=== PATIENT | female | born 1950 | race Caucasian/White ===

== ENCOUNTER 2024-03-09 19:04 | Emergency (ER) | payer MEDICARE, SELFPAY ==
[2024-03-09 19:03] VITALS: BP 130/108; PULSE 95; RESP 16; O2SAT 96
--- NOTE | 2024-03-09 19:20 | ED.AMS ---
HPI - Altered Mental Status General Chief Complaint: Altered Mental Status Stated Complaint: confusion History of Present Illness HPI narrative: 73-year-old female presenting to the emergency department for evaluation. Son called EMS because patient was having some shortness of breath. Patient was brought in by EMS. Upon arrival to the emergency department patient states she is unsure why she is here patient has no complaints. Patient denies any pain or injury. Patient's son is not present during the exam Related Data Home Medications Medication Instructions Recorded Confirmed prednisone 10 mg tablet 5 mg PO DAILY Shortness Of Breath 09/20/20 11/11/23 Or Wheezing albuterol sulfate 90 mcg/actuation 90 mcg inhalation QID PRN 08/16/22 11/11/23 aerosol inhaler Shortness Of Breath famotidine 20 mg tablet 20 mg PO BID 08/16/22 11/11/23 fluticasone 250 mcg-salmeterol 50 See Rx Instructions .Route .COMPLEX 08/16/22 11/11/23 mcg/dose blistr powdr for inhalation (Advair Diskus) gabapentin 100 mg capsule See Rx Instructions .Route .COMPLEX 08/16/22 11/11/23 losartan 100 mg tablet 100 mg PO DAILY 08/16/22 11/11/23 mirtazapine 15 mg tablet 15 mg PO QHS 08/16/22 11/11/23 naproxen 500 mg tablet 500 mg PO Q12H 08/16/22 11/11/23 nitroglycerin 0.4 mg sublingual 0.4 mg sublingual BID PRN Chest 08/16/22 11/11/23 tablet Pain sumatriptan succinate 100 mg tablet 100 mg PO BID PRN Headache 08/16/22 11/11/23 aspirin 81 mg tablet,delayed 81 mg PO DAILY 11/25/22 11/11/23 release nortriptyline 10 mg capsule 10 mg HS 08/23/23 11/11/23 tizanidine 4 mg tablet 4 mg QID PRN Back Pain 08/23/23 11/11/23 trazodone 100 mg tablet 100 mg HS 08/23/23 11/11/23 Allergies Allergy/AdvReac Type Severity Reaction Status Date / Time Penicillins Allergy Severe Swelling Verified 11/10/23 13:56 of Lip/Tongue/Throat Sulfa (Sulfonamide Allergy Unknown Unknown Verified 11/10/23 13:56 Antibiotics) Review of Systems Review of Systems: All systems reviewed & are unremarkable except as noted in HPI and below PMFSH Past Medical History Medical History (Updated 11/29/23 @ 00:00 by Yanelis Shaver) Anxiety Arthritis Bladder cancer Bronchitis Cerebral atherosclerosis Cerebrovascular accident Per patient reports, she had 2 or 3 strokes, the last being in April 2019 although not well documented. Chronic obstructive pulmonary disease Coronary artery disease COVID-19 Depression Fibromyalgia Questionable history of fibromyalgia Gastric ulcer Gastroesophageal reflux disease GI bleed Hyperlipidemia Hyperpituitarism Hypertension Left foot drop Lupus Patient states she has lupus, not well documented. Malingering Meningitis Myocardial infarction Osteoporosis Peripheral neuropathy Renal cancer Systemic lupus erythematosus Surgical History Surgical History History of bilateral breast reduction surgery History of cardiac catheterization History of cardiac defibrillator placement Reportedly for ventricular tachycardia. History of cholecystectomy History of heart artery stent History of hysterectomy History of resection of small bowel (06/20/22) Small-bowel resection with repair of incarcerated right inguinal hernia. History of tonsillectomy Family History Family History Father Hypertension Mother Hypertension Family history of cardiovascular disease Social History Social History Social History: Surrogate medical decision maker: Maxi Carrasquillo, son. Code status: Do not resuscitate. Smoking packs per day: 1 Smoking cigarettes per day: 20.0 Years smoked: 56 Smoking pack-years: 56.00 Smoking status: Never smoker Tobacco type: cigarettes Second hand tobacco smoke exposure: No Alcohol intake: never Substance use: never Substance use type: does not use Do You Feel Safe in your Home?: Yes Lack of Transportation: No Lack of Food: Never True Current Housing: I Have Housing Concerned About Future Housing: No Difficulty Paying Gas/Electric Bills: No Difficulty Paying for Meds: No Currently Unemployed: No Education: High School Diploma/GED Difficulty w/ Childcare or Family Care: No Additional living arrangements comments: with three children. Lives in [place]. 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 Spiritual care concerns: No Agree to blood products: Yes Exam Narrative: APPEARANCE: Well appearing, no pain, no distress, well-nourished. HEAD: normocephalic, atraumatic. EYES: PERRLA/EOMI, conjunctivae clear. NOSE: Normal no drainage EARS:TMS clear with good light reflex. THROAT: Pharynx clear, no exudate. NECK: Supple. No adenopathy, no masses. RESPIRATORY: Airway patent, respirations nonlabored. Clear to auscultation bilaterally, no rales, rhonchi, wheezing. CARDIOVASCULAR: Regular rate and rhythm without murmurs rubs or gallops. ABDOMINAL: Soft, nontender, nondistended, normal bowel sounds MUSCULOSKELETAL: Moves all extremities. Strength/ROM intact, No edema, No calf tenderness. NEURO: Alert. Cranial nerves II through XII intact. Good gait. Good coordination SKIN: Warm, dry. Normal Color PSYCHIATRIC: Normal affect/mood. Course Vital Signs Vital signs: Vital Signs Pulse Rate 95 03/09/24 19:03 Respiratory Rate 16 03/09/24 19:03 Blood Pressure 130/108 H 03/09/24 19:03 Pulse Oximetry 96 03/09/24 19:03 Oxygen Delivery Room Air 03/09/24 19:03 Pulse Rate 95 03/09/24 19:03 Respiratory Rate 16 03/09/24 19:03 Blood Pressure 130/108 H 03/09/24 19:03 Pulse Oximetry 96 03/09/24 19:03 Oxygen Delivery Room Air 03/09/24 19:11 MDM - Altered Mental Status MDM Narrative Medical decision making narrative: Patient states she has no complaints, patient is alert oriented, patient declined any workup at this time and is requesting to be discharged home. Lab Data Labs: Lab Results 03/09/24 Range/Units 19:25 Influenza A (RT-PCR) Negative (Negative) Influenza B (RT-PCR) Negative (Negative) RSV (RT-PCR) Negative (Negative) SARS-CoV-2 RNA (RT-PCR) Negative (Negative) Discharge Plan Discharge Patient Disposition: Left Against Medical Advice Condition: Stable Prescriptions: No Action fluticasone propion-salmeterol [Advair Diskus] 250-50 mcg/dose blister with device See Rx Instructions .ROUTE .COMPLEX Rx Instructions: 250-50 MCG/DOSE BLISTER WITH DEVICE sumatriptan succinate 100 mg tablet 100 mg PO BID PRN (Reason: Headache) famotidine 20 mg tablet 20 mg PO BID nitroglycerin 0.4 mg tablet, sublingual 0.4 mg sublingual BID PRN (Reason: Chest Pain) mirtazapine 15 mg tablet 15 mg PO QHS gabapentin 100 mg capsule See Rx Instructions .ROUTE .COMPLEX Rx Instructions: TAKE ONE CAPSULE EVERY MORNING AND TAKE TWO CAPSULES EVERY NIGHT AT BEDTIME albuterol sulfate 90 mcg/actuation HFA aerosol inhaler 90 mcg inhalation QID PRN (Reason: Shortness Of Breath) losartan 100 mg tablet 100 mg PO DAILY naproxen 500 mg tablet 500 mg PO Q12H hydrocodone-acetaminophen 5-325 mg tablet 1 tablet PO Q6H PRN (Reason: pain) Qty: 20 0RF cyclobenzaprine 10 mg tablet 10 mg PO TID PRN (Reason: muscle spasm) Qty: 14 0RF prednisone 10 mg tablet 5 mg PO DAILY Rx Instructions: 1/2 Tab every day aspirin 81 mg Tablet,Delayed Release (Dr/Ec) 81 mg PO DAILY pantoprazole [Protonix] 40 mg tablet,delayed release (DR/EC) 40 mg PO QAM Qty: 30 0RF tizanidine 4 mg tablet 4 mg QID PRN (Reason: Back Pain) nortriptyline 10 mg capsule 10 mg HS trazodone 100 mg tablet 100 mg HS Follow-up/Referrals: Josse,VALENTIN Roberts [Primary Care Provider] -
--- NOTE | 2024-03-09 19:33 | PC.NURSE ---
This RN spoke with pt son Maxi who states that his brother and POPatrick Oates is coming to [place] to voice concerns. Pt currently uncooperative upset that she is at the hospital. MD Ayala updated.
--- NOTE | 2024-03-09 19:36 | PC.NURSE ---
Patient AOx3 and adamant about leaving the hospital. Patient refuses chest x-ray and urinalysis. Patient states she wants her son to get here to take her home. Patient asked to stay in bed and hang out until her son gets here. Patient taking off the monitor and stating she does not have to sit in bed. Margaux PRITCHARD spoke with son of patient on the phone who stated he was on the way here. Patient made aware. Patient continues to say she does not want to be on the monitor and does not want to take a bed from someone who needs it. EDP and Earl made aware.
[2024-03-09 20:15] LABS: Influenza A QL RT-PCR Negative (Negative); Influenza B QL RT-PCR Negative (Negative); RSV RNA, RT-PCR Negative (Negative); SARS-CoV-2 RNA PCR Negative (Negative)
--- NOTE | 2024-03-09 20:20 | PC.NURSE ---
Patient came to the nurses charge desk stating she wanted to sign out AMA. EDP Dr. Ayala conversed with patient and stated she can sign out. Patient signs AMA form and walked to the waiting room. Son of patient -Maxi- marsha who states his brother -Иван- is on his way to the hospital. He states he wants her to be evaluated when they arrive. Son is advised that she is able to answer all questions for this RN and we cannot go against her wishes and treat her without her consent. Son states his brother is on the way to the hospital and they will discuss it then.
== END 2024-03-09 21:22 | disposition left against medical advice (07) ==
PROVIDERS: Emergency Provider Emergency Medicine; PCP Physician Assistant
DX: R41.82 Altered mental status, unspecified (principal); F41.9 Anxiety disorder, unspecified; M19.90 Unspecified osteoarthritis, unspecified site; Z86.73 Personal history of transient ischemic attack (TIA), and cerebral infarction without residual deficits; J44.9 Chronic obstructive pulmonary disease, unspecified; I25.10 Atherosclerotic heart disease of native coronary artery without angina pectoris; K21.9 Gastro-esophageal reflux disease without esophagitis; E78.5 Hyperlipidemia, unspecified; I10 Essential (primary) hypertension; M21.372 Foot drop, left foot; I25.2 Old myocardial infarction; Z20.822 Contact with and (suspected) exposure to COVID-19
CPT/HCPCS: 87637; 99283

== ENCOUNTER 2025-02-13 16:38 | Observation (INO) | payer MEDICARE, MEDICAID, SELFPAY ==
--- OUTSIDE RECORDS SUMMARY | 2025-02-12 19:45 | XMS_ITS | Encounter Summary ---
Author Organization [facility] Address [address] [place] [address] Care Team Providers [employer] [place] Agent Name Role Phone Karan Snyder MD Unavailable [phone] Wesley Loaiza Primary Care Provider + Lilia Gomes MD Unavailable Mando Acuña MD Unavailable [phone] Larry Gregory MD Unavailable [phone] Nixon Casey MD Unavailable Renan Espino MD Unavailable Reason for Visit * Reason Comments Chest Pain Encounter Details Date Type Department Care Team (Late st Contact Info) Description 02/12/2025 7:45 PM CDT - 02/12/2025 11:18 PM CDT Emergency [facility] Emergency Department [address] [place] [address] Seth Ann III, MD [address] [place] [address] Fall, initial encounter (Primary Dx); Acute pain of left shoulder Discharge Disposition: Discharge to home or self care Social History Tobacco Use Types Packs/Day Years Used Date Smoking Tobacco: Former Cigarettes 1 55 1 960 - 2015 Smokeless Tobacco: Never Comments:quit 3 1/2 years ag o Alcohol Use Standard Drinks/Week Comments Not Currently 0 (1 standard drink = 0.6 oz pur e alcohol) Social Connection and Isolation Panel Answer Date Recorded In a typical week, how many times do you talk on the phone with family, friends, or neighbors? More than three times a week 02/04/2023 Frequency of Social Gatherin gs with Friends and Family Not on file 02/04/2023 How often do you attend chur ch or hinduism services? More than 4 times per year 02/04/2023 Do you belong to any clubs o r organizations such as rastafarian groups, unions, fraternal or athletic groups, or school groups? No 02/04/2023 How often do you attend meet ings of the clubs or organizations you belong to? Never 02/04/2023 Are you , , di vorced, , never , or living with a partner? 02/04/2023 Overall Financial Resource Strain (CARDIA) Answe r Date Recorded How hard is it for you to pa y for the very basics like food, housing, medical care, and heating? Not very hard 02/04/2023 PHQ-2 Answer Date Recorded PHQ-2 Score 0 01/23/2019 Hunger Vital Sign Answer Date Recorded Within the past 12 months, y ou worried that your food would run out before you got the money to buy more. Never true 02/05/20 23 Within the past 12 months, t he food you bought just didn't last and you didn't have money to get more. Never true 02/04/2023 PRAPARE - Transportation Answer Date Re corded In the past 12 months, has l ack of transportation kept you from medical appointments or from getting medications? No 09/2022 In the past 12 months, has l ack of transportation kept you from meetings, work, or from getting things needed for daily living? No 02/04/2023 Housing Stability Vital Sign Answer Ayo e Recorded In the last 12 months, was t here a time when you were not able to pay the mortgage or rent on time? No 02/04/2023 In the last 12 months, how many places have you lived? 1 02/04/2023 In the last 12 months, was t here a time when you did not have a steady place to sleep or slept in a penitentiary (including now)? No 02/04/2023 Personal Safety Answer Date Recorded Have you ever been in or are you currently in a harmful physical or emotional relationship or is someone making you feel afraid or unsafe? 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 Gender Identity Not on file Sexual Orientation Not on file documented as of this encounter Last Filed Vital Signs Vital Sign Reading Time Taken Comments Blood Pressure 136/63 02/12/2025 10:00 PM CDT Pulse 72 02/12/2025 10:00 PM CDT Temperature 36.9 C (98.4 F) 02/12/2025 8:05 PM CDT Respiratory Rate 22 02/12/2025 10:54 PM CDT Oxygen Saturation 98% 02/12/2025 10:54 PM CDT Inhaled Oxygen Concentration - - Weight 47.6 kg (105 lb) 02/12/2025 8:05 PM CDT Height - - Body Mass Index 18.02 02/28/2024 2:18 PM CDT documented in this encounter Discharge Instructions * Discharge Instructions* Seth Ann III, MD - 02/12/2025 9:48 PM CDT He would not have any broken bones. Rest her shoulder for the next couple days. Take Tylenol and ibuprofen for pain you may wear a sling as needed. Call your primary care doctor on Friday to schedulefollow up appointment for re-evaluation * Attachments The following attachments cannot be sent through Care Everywhere. * Exercises for Shoulder Flexion and Extension (AfterCare(R) Instructions(ER/ED)) (Gambian) documented in this encounter Medications at Time of Discharge amLODIPine (NORVASC) 5 mg tablet Take 1 tablet (5 mg total) by mouth every morning 01/03/2023 aspirin 81 mg enteric coated tablet Take 1 tablet (81 mg total) by mouth daily budesonide-formotero L (SYMBICORT) 160-4.5 mcg/actuation inhaler Inhale 2 puffs 2 (two) times a day 01/08/2023 clopidogreL (PLAVIX) 75 mg tablet Take 1 tablet (75 mg total) by mouth every morning 11/04/2023 cyclobenzaprine (FLEXERIL) 10 mg tablet TAKE 1/2 TO 1 TABLET BY MOUTH TWICE DAILY 11/20/[address] (CYMBALTA) 60 mg capsule Take 1 capsule (60 mg total) by mouth every morning Eliquis 2.5 mg tablet 11/26/2023 gabapentin (NEURONTIN) 300 mg capsule Take 1 capsule (300 mg total) by mouth 3 (three) times a day 01/03/2023 hydrOXYzine (ATARAX) 10 mg tablet TAKE 1 TO 2 TABLETS BY MOUTH 3 TIMES DAILY NEEDED 09/02/2023 levoFLOXacin (LEVAQUIN) 500 mg tablet Take 1 tablet (500 mg total) by mouth daily 7 tablet 02/28/2024 losartan (COZAAR) 100 mg tablet Take 1 tablet (100 mg total) by mouth every morning nitroglycerin (NITROSTAT) 0.[address] 1 tablet (0.4 mg total) under the tongue every 5 (five) minutes as needed for chest pain 12/04/2022 nortriptyline (PAMELOR) 10 mg capsule TAKE 2 CAPSULES BY MOUTH EVERY DAY AT BEDTIME 10/24/2023 Nurtec ODT tablet,disintegratin g TAKE 1 TABLET BY MOUTH DAILY NEEDED FOR 8 DAYS ondansetron ODT (ZOFRAN-ODT) 4 mg disintegrating tablet Dissolve 1 tablet oral every 4 hours as needed for nausea or vomiting. 15 tablet 10/17/2021 oxyCODONE-acetaminop hen (PERCOCET) 7.5-325 mg per tablet Take by mouth 2 (two) times a day as needed 09/04/[address] (PROTONIX) 40 mg EC tabletIndications:Mu cositis Prophylaxis,Treatmen t of Non-Bleeding Gastric Disorder Take 1 tablet (40 mg total) by mouth daily 30 tablet 11/13/2021 tiZANidine (ZANAFLEX) 4 mg tablet Take 1 tablet (4 mg total) by mouth 3 (three) times a day 01/03/2023 documented as of this encounter Discharge Disposition Disposition Code Departure Means Destination Comment s Discharge to home or self care documented in this encounter ED Notes * Seth Ann III, MD - 02/12/2025 9:43 PM CDT HPI Chief Complaint Patient presents with Chest Pain 74-year-old female presents with shoulder pain after mechanical ground level fall. States she was walking tripped and fell landed on her left shoulder hit her head. Denies losing consciousness. Currently complaining of pain around her left shoulder. Denies any vision changes, numbness, tingling. Denies any chest pain. Patient History: Past Medical History: Diagnosis Date A-fib (HCC) Cancer (HCC) Cerebrovascular accident (CVA) (HCC) Stroke Coronary artery disease Depression HX OTHER MEDICAL TIA - multiple HX OTHER MEDICAL Lupus HX OTHER MEDICAL 2015 bladder cancer, Zahira Diaz.; Comments: PETRA 10/16/2015 - Hypertension Lupus ND (myocardial infarction) (HCC) Migraines Review of Systems Review of Systems Physical Exam ED Triage Vitals [02/12/252004] Temp Pulse Resp BP SpO2 36.9 ??C (98.4 ??F) 82 20 128/47 96 % Temp src Heart Rate Source Patient Position BP Location FiO2 (%) Oral -- -- -- -- Height Height Method Weight Weight Method -- -- 47.6 kg (105 lb) Stated Physical Exam Vitals and nursing note reviewed. Constitutional: General: She is not in acute distress. Appearance: She is well-developed. HENT: Head: Normocephalic and atraumatic. Eyes: Conjunctiva/sclera: Conjunctivae normal. Cardiovascular: Rate and Rhythm: Normal rate and regular rhythm. Heart sounds: No murmur heard. Pulmonary: Effort: Pulmonary effort is normal. No respiratory distress. Breath sounds: Normal breath sounds. Abdominal: Palpations: Abdomen is soft. Tenderness: There is no abdominal tenderness. Musculoskeletal: General: No swelling. Cervical back: Neck supple. Comments: Pain with active greater than passive flexion and ab duction of the left shoulder. Tenderness to palpation over the long head of the biceps and deltoid muscle. No bony tenderness. Skin: General: Skin is warm and dry. Capillary Refill: Capillary refill takes less than 2 seconds. Neurological: Mental Status: She is alert. Psychiatric: Mood and Affect: Mood normal. MDM [age] year female presents with a mechanical ground level fall hitting her head and shoulder. Differential diagnosis includes intracranial hemorrhage, humerus fracture, rotator cuff tear, biceps tendinitis, labral tear. Patient was neurovascularly intact so less likely intracranial hemorrhage but given her age will order a head CT. Will get plain films of the shoulder and chest given location of her pain to rule out fracture. Patient was provided opioid analgesia and demanded more directly afterwards. Per chart review patient does have some history of pain med seeking behavior and at this time I have a low concern for severe acute injury so will add a dose of Toradol. Disposition pending results of imaging ???Portions of the record may have been created with voice recognition software. Occasional wrong-word or ???[id number]??? substitutions may have occurred due to the inherent limitations of voice recognition software. Read the chart carefully and recognize, using context, where substitutions haveoccurred.?? NIH Score Medical Decision Making Amount and/or Complexity of Data Reviewed Radiology: ordered and independent interpretation performed. ECG/medicine tests: ordered. Risk OTC drugs. Prescription drug management. ED Course as of 02/13/25 0940 Time: 02/12 2149 Comment: On my independent review of the shoulder x-ray I see no large fracture or dislocation By: Seth Ann III, MD Time: 02/12 2150 Comment: My independent review the chest x-ray that has no large consolidation or pulmonary edema By: Seth Ann III, MD Time: 02/12 2150 Comment: On my independent review of the head CT I see no large intracranial hemorrhage By: Seth Ann III, MD Time: 02/12 2150 Comment: On my review of the labs she has a mild stable anemia otherwise unremarkable. Troponin appears stable from baseline and patient is not having active chest pain By: Seth Ann III, MD Final diagnoses: Fall, initial encounter Acute pain of left shoulder Seth Ann III, MD 02/13/25939 * Reginald Gordillo, MACHO - 02/12/2025 8:02 PM CDT Left sided chest pain that goes into her left arm and neck since yesterday * Cyndee Martínez RN - 02/12/2025 7:45 PM CDT Bed: ED29 Expected date: Expected time: Means of arrival: Comments: [facility] 16- CP VSS Cyndee Martínez, MACHO 02/12/251944 documented in this encounter Plan of Treatment Not on file documented as of this encounter Procedures Procedure Name Priority Date/Time Associated Diagnosis Comments CT HEAD WO CONTRAST ED 02/12/2025 9 :32 PM CDT XR SHOULDER LEFT 2 OR MORE VIEWS ED 02/12/2025 9:07 PM CDT XR CHEST 1 VIEW ED 02/12/2025 8:02 PM CDT TROPONIN T HIGH-SENSITIVITY SERIES (BASELINE, 2HR, 4HR, 6HR) STAT 02/12/2025 7:53 PM CDT EGFR STAT 02/12/2025 7:53 PM CDT DIFFERENTIAL AUTO STAT 02/12/2025 7:5 3 PM CDT CBC WITH AUTO DIFFERENTIAL STAT 02/12/2025 7:53 PM CDT COMPREHENSIVE METABOLIC PANEL STAT 02/12/2025 7:53 PM CDT ECG 12-LEAD STAT 02/12/2025 7:34 PM CDT documented in this encounter Results * CT Head WO Contrast (02/12/2025 9:32 PM CDT) Anatomical Region Laterality Modality Head and Neck N/A Computed Tomogra phy 02/12/2025 9:30 PM CDT Impressions 02/13/2025 12:42 PM CDT 1. No acute intracranial abnormality. 2. Mild atrophy. 3. Moderate microvascular white matter change. For the purposes of corporate quality assurance manager, this study was initially interpreted by teleradiology. There is no significant discrepancy. Electronically signed by: Gallito Funk M.D. Narrative 02/13/2025 12:[address] HEAD WO CONTRAST 02/12/2025 8:55 PM CLINICAL INDICATION: Head trauma, minor (Age >= 65y). COMPARISON: CT head dated 11/29/2023. TECHNIQUE: CT scan of the head was performed without contrast. Coronal and sagittal reformatted images were generated. FINDINGS: The ventricles and cortical sulci are mildly dilated, but stable in size and configuration. There is no acute intracranial hemorrhage, mass/mass effect or midline shift. Moderate subcortical and periventricular hypodensities likely represent microvascular ischemic white matter change. A right basal ganglia round hypodensity is unchanged and could represent a perivascular space or chronic lacunar infarct. The basal cisterns are patent. The sella and suprasellar structures are normal. There are no acute findings in the posterior fossa. The visualized paranasal sinuses and mastoid air cells are clear. The orbits are normal. Procedure Note Gallito Funk MD - 02/13/2025 CT HEAD WO CONTRAST 02/12/2025 8:55 PM CLINICAL INDICATION: Head trauma, minor (Age >= 65y). COMPARISON: CT head dated 11/29/2023. TECHNIQUE: CT scan of the head was performed without contrast. Coronal and sagittal reformatted images were generated. FINDINGS: The ventricles and cortical sulci are mildly dilated, but stable in size and configuration. There is no acute intracranial hemorrhage, mass/mass effect or midline shift. Moderate subcortical and periventricular hypodensities likely represent microvascular ischemic white matter change. A right basal ganglia round hypodensity is unchanged and could represent a perivascular space or chronic lacunar infarct. The basal cisterns are patent. The sella and suprasellar structures are normal. There are no acute findings in the posterior fossa. The visualized paranasal sinuses and mastoid air cells are clear. The orbits are normal. IMPRESSION: 1. No acute intracranial abnormality. 2. Mild atrophy. 3. Moderate microvascular white matter change. For the purposes of corporate quality assurance manager, this study was initially interpreted by teleradiology. There is no significant discrepancy. Electronically signed by: Gallito Funk M.D. Seth Ann III, MD IM CT PROCEDUR ES Final Result * XR Shoulder Left 2 or More Views (02/12/2025 9:07 PM CDT) Anatomical Region Laterality Modality Upper Extremities, Shoulder Left Comp uted Radiography 02/13/2025 6:05 PM CDT Impressions 02/13/2025 6:05 PM CDT No fracture or dislocation. Electronically signed by: Aaliyah Remy M.D. Narrative 02/13/2025 6:05 PM CDT EXAMINATION: XR SHOULDER LEFT 2 OR MORE VIEWS HISTORY: The patient is a 74-year-old female who presents with a fall. TECHNIQUE: 4 views. FINDINGS: No fracture or dislocation is seen. The glenohumeral and acromioclavicular joints are normal. Procedure Note Aaliyah Remy MD - 02/13/2025 EXAMINATION: XR SHOULDER LEFT 2 OR MORE VIEWS HISTORY: The patient is a 74-year-old female who presents with a fall. TECHNIQUE: 4 views. FINDINGS: No fracture or dislocation is seen. The glenohumeral and acromioclavicular joints are normal. IMPRESSION: No fracture or dislocation. Electronically signed by: Aaliyah Remy M.D. us Seth Ann III, MD IMG XR PROCEDUR ES Final Result * XR Chest 1 Vw Portable (If patient hemodynamically UNstable or UNable to ambulate) (02/12/2025 8:02PM CDT) Anatomical Region Laterality Modality Body, Chest N/A Computed Radiogr aphy 02/13/2025 12:1 8 PM CDT Impressions 02/13/2025 12:18 PM CDT Mild vascular congestion. Electronically signed by: Aaliyah Remy M.D. Narrative 02/13/2025 12:18 PM CDT EXAMINATION: XR CHEST 1 VIEW HISTORY: The patient is a 74-year-old female who presents with chest pain. Comparison made with the previous study dated 02/28/2024. TECHNIQUE: AP portable view of the chest. FINDINGS: Borderline cardiomegaly with aortic atherosclerosis. Mild degree of vascular congestion. No focal consolidation. Procedure Note Aaliyah Remy MD - 02/13/2025 EXAMINATION: XR CHEST 1 VIEW HISTORY: The patient is a 74-year-old female who presents with chest pain. Comparison made with the previous study dated 02/28/2024. TECHNIQUE: AP portable view of the chest. FINDINGS: Borderline cardiomegaly with aortic atherosclerosis. Mild degree of vascular congestion. No focal consolidation. IMPRESSION: Mild vascular congestion. Electronically signed by: Aaliyah Remy M.D. Seth Ann III, IMG XR PROCEDUR ES Final Result * (ABNORMAL) eGFR (02/12/2025 7:53 PM CDT) Pathologist [facility] eGFR 42(L) >=60 mL/min/1. 73 m2 Comment: Interpretive Data Reference Interval Normal >/= 90 mL/min/1.73m2 Mildly decreased* 60 - 89 mL/min/1.73m2 Mildly to moderately decreased 45 - 59 mL/min/1.73m2 Moderately to severely decreased 30 - 44 mL/min/1.73m2 Severely decreased 15 - 29 mL/min/1.73m2 Kidney Failure < 15 mL/min/1.73m2 *Relative to young adult level Estimated glomerular filtration rate is determined by the 2020 CKD-EPI equation recommended by the National Kidney Foundation (A Unifying Approach to GFR Estimation: Recommendations of the NKF-ASK Task Force on Reassessing the Inclusion of Race in Diagnosing Kidney Disease, JASN 2020). The CKD-EPI equation should not be used for patients with unstable renal function and has not been validated in children and those over 70. Current interpretive data was last reviewed 2021. Blood 02/12/2025 7:53 PM CDT 02/12/2025 7:56 PM CDT Arina Mendez MD LAB BLOOD ORDERABLES Final Res ult [facility] [address] Department [place] [address] * (ABNORMAL) Differential, auto (02/12/2025 7:53 PM CDT) Pathologist [facility] Neutrophil abs 5.37 1.50 - 6.50 K/cumm Imm gran abs 0.02 0.00 - 0.10 K/cumm [facility] Lymphocyte abs 0.93 0.80 - 3.30 K/cumm [facility] Monocyte abs 0.97(H) 0.20 - 0.80 K/cumm [facility] Eosinophil abs 0.80(H) 0.00 - 0.50 K/cumm [facility] Basophil abs 0.03 0.00 - 0.10 K/cumm [facility] Neutrophil pct 66.1 % [facility] Comment: Interpretive Data Percent cell count reference ranges are not reported, since discordance with absolute values may lead to misinterpretation of CBC data. Current Interpretive Data was last revised on 2017. Imm gran pct 0.2 % [facility] Comment: Interpretive Data Percent cell count reference ranges are not reported, since discordance with absolute values may lead to misinterpretation of CBC data. Current Interpretive Data was last revised on 2017. Lymphocyte pct 11.5 % [facility] Comment: Interpretive Data Percent cell count reference ranges are not reported, since discordance with absolute values may lead to misinterpretation of CBC data. Current Interpretive Data was last revised on 2017. Monocyte pct 11.9 % [facility] Comment: Interpretive Data Percent cell count reference ranges are not reported, since discordance with absolute values may lead to misinterpretation of CBC data. Current Interpretive Data was last revised on 2017. Eosinophil pct 9.9 % [facility] Comment: Interpretive Data Percent cell count reference ranges are not reported, since discordance with absolute values may lead to misinterpretation of CBC data. Current Interpretive Data was last revised on 2017. Basophil pct 0.4 % [facility] Comment: Interpretive Data Percent cell count reference ranges are not reported, since discordance with absolute values may lead to misinterpretation of CBC data. Current Interpretive Data was last revised on 2017. Blood 02/12/2025 7:53 PM CDT 02/12/2025 7:57 PM CDT us Seth Ann III, MD LAB BLOOD ORDER GLADIS Final Result [facility] [address] Department [place] [address] * (ABNORMAL) Troponin T high-sensitivity series (baseline, 2hr, 4hr, 6hr) (02/12/2025 7:53 PM CDT) Trop T hs 18(H) <=14 ng/L Comment: Interpretive Data For further hscTnT resources including the diagnostic algorithm and an aid in interpretation, copy and paste this link: https://nrl.testcatalog.org/show/hsTrop Current Interpretive Data last revised 2020. Blood 02/12/2025 7:53 PM CDT 02/12/2025 7:56 PM CDT us Seth Ann III, MD LAB BLOOD ORDER GLADIS Final Result [facility] [address] Department [place] [address] * (ABNORMAL) Comprehensive metabolic panel (02/12/2025 7:53 PM CDT) Sodium 142 135 - 145 mmol/L Potassium, pl 3.9 3.3 - 4.9 mmol/L [facility] Chloride 107 97 - 110 mmol/L [facility] CO2 23 22 - 32 mmol/L [facility] Anion gap 12 2 - 15 mmol/L [facility] BUN 14 6 - 25 mg/dL [facility] Creatinine 1.31(H) 0.60 - 1.10 mg/dL [facility] Glucose 91 70 - 199 mg/dL [facility] Comment: Interpretive Data Fasting glucose >/= 126 mg/dl is diagnostic for diabetes. Fasting is defined as no caloric intake for at least 8 hours. Fasting glucose between 100 mg/dl to 125 mg/dl is diagnostic of prediabetes. In a patient with classic symptoms of hyperglycemia or hyperglycemic crisis, a random glucose >/= 200 mg/dl is diagnostic for diabetes. In the absence of unequivocal hyperglycemia, results should be confirmed by repeat testing. The classification and Diagnosis of Diabetes Diabetes Care 202; 46: S19-S40. Current interpretive data was last revised 2022. Calcium 8.8 8.5 - 10.3 mg/dL [facility] Bilirubin, total 0.2 0.1 - 1.2 mg/dL [facility] Protein, pl 6.6 6.5 - 8.5 g/dL [facility] Albumin 3.4(L) 3.5 - 5.0 g/dL [facility] Alk phos 94 40 - 130 Units/L [facility] ALT 11 7 - 45 Units/L [facility] AST 22 10 - 45 Units/L [facility] Blood 02/12/2025 7:53 PM CDT 02/12/2025 7:56 PM CDT Seth Ann III, MD LAB BLOOD ORDER GLADIS Final Result [facility] [address] [place] [address] * (ABNORMAL) CBC with auto differential (02/12/2025 7:53 PM CDT) WBC 8.12 3.80 - 9.90 K/cumm Hgb 7.8(L) 11.9 - 15.5 g/dL [facility] Hct 28.9(L) 35.6 - 45.5 % [facility] Plt 287 150 - 400 K/cumm [facility] MPV 9.9 9.1 - 12.3 fL [facility] RBC 4.05 3.90 - 5.20 M/cumm [facility] MCV 71.4(L) 81.3 - 96.4 fL [facility] MCH 19.3(L) 27.1 - 33.3 pg [facility] MCHC 27.0(L) 32.3 - 35.7 g/dL [facility] RDW CV 20.4(H) 11.1 - 14.9 % [facility] RDW SD 51.9(H) 35.7 - 48.1 fL [facility] NRBC abs 0.00 0.00 - 0.01 K/cumm [facility] CH Blood Venous blood specimen / Unknown 02/12/2025 7:53 PM CDT 02/12/2025 7:57 PM CDT Seth Ann III, MD LAB BLOOD ORDER GLADIS Final Result [facility] [address] [place] [address] * ECG 12 lead (02/12/2025 7:34 PM CDT) 02/12/2025 7:34 PM CDT Narrative [facility] - 02/13/2025 1:31 PM CDT Vent Rate: 83 bpm RR Interval: 722 msec TX Interval: 0 msec QRS Duration: 97 msec QT Interval: 392 msec QTC Interval: 431 msec P-R-T [place]: 0 - 37 - 60 degrees IMPRESSION: Sinus rhythm with PACs and PVCs VOLTAGE CRITERIA FOR LVH [MEETS CRITERIA IN ONE OF: R(aVL), S(V1), R(V5), R(V5/V6)+S(V1)] MODERATE ST DEPRESSION [0.05+ mV ST DEPRESSION] ABNORMAL ECG No significant changes compared to February 28, [address]: [address] Lila Argueta [facility] us Seth Ann III, MD ECG ORDERABLES Final Result [facility] documented in this encounter Visit Diagnoses Diagnosis Fall, initial encounter- Primary Acute pain of left shoulder documented in this encounter Administered Medications Inactive Administered Medications - up to 3 most recent administrations Medication Order MAR Action Action Date Dose Rate Site acetaminophen (TYLENOL) tablet 1,000 mg 1,000 mg, oral, Once, On 02/12/25 at 2213, For 1 dose Given 02/12/2025 10:21 PM CDT 1,000 mg ipratropium-albuteroL (DUO-NEB) 0.5-2.5 mg/3 mL nebulizer solution 3 mL 3 mL, nebulization, Once (respiratory therapy instructor), On 02/12/25 at 2251, For 1 dose Given 02/12/2025 10:54 PM CDT 3 mL ketorolac (TORADOL) 30 mg/mL injection 15 mg 15 mg, intravenous, Once, On 02/12/25 at 2022, For 1 dose, For Adult IV push, administer over 15 seconds Given 02/12/2025 9:10 PM CDT 15 mg morphine injection 4 mg 4 mg, intravenous, Administer over 4 Minutes, Once, On 02/12/25 at 2009, For 1 dose Given 02/12/2025 8:12 PM CDT 4 mg ondansetron (ZOFRAN) injection 4 mg 4 mg, intravenous, Administer over 2 Minutes, Once, On 02/12/25 at 1948, For 1 dose Given 02/12/2025 7:49 PM CDT 4 mg documented in this encounter Active and Recently Administered Medications Times are shown in CDT. Scheduled Medication Order 02/10/2025 02/11/2025 02/12/2025 acetaminophen (TYLENOL) tablet 1,000 mg (COMPLETED) 1,000 mg, oral, Once, On 02/12/25 at 2212, For 1 dose 2220 (Given - Provid er: Reginald Gordillo RN) ipratropium-albuteroL (DUO-NEB) 0.5-2.5 mg/3 mL nebulizer solution 3 mL (COMPLETED) 3 mL, nebulization, Once (respiratory therapy instructor), On 02/12/25 at 2250, For 1 dose 2253 (Given - Provid er: Guido Enrique, ANTOINE) ketorolac (TORADOL) 30 mg/mL injection 15 mg (COMPLETED) 15 mg, intravenous, Once, On 02/12/25 at 2022, For 1 dose, For Adult IV push, administer over 15 seconds 2109 (Given - Provid er: Reginald Gordillo RN) morphine injection 4 mg (COMPLETED) 4 mg, intravenous, Administer over 4 Minutes, Once, On 02/12/25 at 2009, For 1 dose 2011 (Given - Provid er: Reginald Gordillo RN) ondansetron (ZOFRAN) injection 4 mg (COMPLETED) 4 mg, intravenous, Administer over 2 Minutes, Once, On 02/12/25 at 1947, For 1 dose 1948 (Given - Provid er: Reginald Gordillo RN) documented in this encounter Orders IV Count Last Ordered Date First Orde red Date SALINE LOCK IV 1 02/12/2025 documented in this encounter Care Teams Depot Agent Relationship Specialty Start Date End Date Wesley Loaiza PA [address] [place] [id number] PCP - General 09/07/18 Karan Snyder MD Consulting Physician Cardiology 05/19/17 Lilia Gomes MD [address] [place] [address] Consulting Physician Cardiovascular Disease 09/08/18 Mando Acuña MD [address] [place] [address] Consulting Physician Cardiology 10/05/18 Larry Gregory MD [address] [place] [address] Consulting Physician Internal Medicine 07/29/19 Nixon Casey MD [address] [place] [address] Consulting Physician Gastroenterology 09/28/19 [place] [id number] [address] Consulting Physician Gastroenterology 11/13/21 documented as of this encounter
--- OUTSIDE RECORDS SUMMARY | 2025-02-12 19:45 | XMS_ITS | Encounter Summary ---
Author Organization [facility] Address [address] [place] [address] Care Team Providers Care Tire Bladder Maker Name Role Phone Karan Snyder MD Unavailable [phone] Wesley Loaiza Primary Care Provider + Lilia Gomes MD Unavailable [phone] Mando Acuña MD Unavailable [phone] Larry Gregory MD Unavailable [phone] Nixon Casey MD Unavailable Renan Espino MD Unavailable Reason for Visit * Reason Comments Chest Pain Encounter Details Date Type Department Care Team (Late st Contact Info) Description 02/12/2025 7:45 PM CDT - 02/12/2025 11:18 PM CDT Emergency [facility] Emergency Department [address] [place] [address] Seth Ann III, MD [address] [place] [address] Fall, initial encounter (Primary Dx); [...] often do you attend chur ch or latter day services? More than 4 times per year 02/04/2023 Do you belong to any clubs o r organizations such as shinto groups, unions, fraternal or athletic groups, or [...] place to sleep or slept in a senior care (including now)? No 02/04/2023 Personal Safety Answer Date Recorded Have you ever been in or are you currently in a harmful physical or emotional relationship or is someone making you feel afraid or unsafe? 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 Occasional wrong-word or ???[id number]??? substitutions may have occurred due to the [...] Seth Ann III, MD 02/13/25939 * Reginald Gordillo RN - 02/12/2025 8:02 PM CDT Left sided chest pain that goes into her left arm and neck since yesterday * Cyndee Martínez RN - 02/12/2025 7:45 PM CDT Bed: ED29 Expected date: Expected time: Means of arrival: Comments: [facility] 16- CP VSS Cyndee Martínez RN 02/12/251944 documented in this encounter Plan of Treatment Pending Results Name Type Priority Associated Diagnoses Date /Time XR Shoulder Left 2 or More Views Imaging ED 02/12/2025 9:07 PM CDT Scheduled Orders Name Type Priority Associated Diagnoses Orde r Schedule XR Shoulder Left 2 or More Views Imaging ED Once for 1 Occur rences starting 02/12/2025 until 02/12/2025 documented as of this encounter Procedures Procedure Name Priority Date/Time Associated Diagnosis Comments CT HEAD WO CONTRAST ED 02/12/2025 9 :32 PM CDT XR CHEST 1 VIEW ED [...] white matter change. For the purposes of quality assurance supervisor body, this study was initially interpreted by teleradiology. [...] white matter change. For the purposes of quality assurance supervisor body, this study was initially interpreted by teleradiology. There is no significant discrepancy. Electronically signed by: Gallito Funk M.D. Seth Ann III, MD IMG CT PROCEDUR ES Final Result * XR Chest [...] by: Aaliyah Remy M.D. Seth Ann III, MD IMG XR PROCEDUR ES Final Result * (ABNORMAL) eGFR (02/12/2025 7:53 PM CDT) eGFR 42(L) >=60 mL/min/1. 73 m2 Comment: [...] PM CDT 02/12/2025 7:56 PM CDT us Arina Mendez MD LAB BLOOD ORDERABLES Final Res ult [address] [place] [address] * (ABNORMAL) Differential, auto (02/12/2025 7:53 PM CDT) Neutrophil abs 5.37 1.50 - 6.50 K/cumm Imm gran abs 0.02 0.00 - 0.10 K/cumm [facility] Lymphocyte abs 0.93 0.80 - 3.30 K/cumm [facility] Monocyte abs 0.97(H) 0.20 - 0.80 K/cumm [facility] Eosinophil abs 0.80(H) 0.00 - 0.50 K/cumm [facility] Basophil abs 0.03 0.00 - 0.10 K/cumm [facility] Neutrophil pct 66.1 % [facility] Comment: Interpretive Data Percent cell count reference ranges are not reported, since discordance with absolute values may lead to misinterpretation of CBC data. Current Interpretive Data was last revised on 2017. Imm gran pct 0.2 % [facility] Comment: Interpretive Data Percent cell count reference ranges are not reported, since discordance with absolute values may lead to misinterpretation of CBC data. Current Interpretive Data was last revised on 2017. Lymphocyte pct 11.5 % [facility] Comment: Interpretive Data Percent cell count reference ranges are not reported, since discordance with absolute values may lead to misinterpretation of CBC data. Current Interpretive Data was last revised on 2017. Monocyte pct 11.9 % [facility] Comment: Interpretive Data Percent cell count reference ranges are not reported, since discordance with absolute values may lead to misinterpretation of CBC data. Current Interpretive Data was last revised on 2017. Eosinophil pct 9.9 % [facility] Comment: Interpretive Data Percent cell count reference ranges are not reported, since discordance with absolute values may lead to misinterpretation of CBC data. Current Interpretive Data was last revised on 2017. Basophil pct 0.4 % [facility] Comment: Interpretive Data Percent cell count reference ranges are not reported, since discordance with absolute values may lead to misinterpretation of CBC data. Current Interpretive Data was last revised on 2017. Blood 02/12/2025 7:53 PM CDT 02/12/2025 7:57 PM CDT Seth Ann III, MD LAB BLOOD ORDER GLADIS Final Result Performing Organization Address [facility] de Phone Number [address] [address] Department [place] [address] * (ABNORMAL) Troponin T high-sensitivity series (baseline, [...] MD LAB BLOOD ORDER GLADIS Final Result Performing Organization Address [facility] de Phone Number BRIONNANORMA HOOKER [address] Department [place] [address] * (ABNORMAL) Comprehensive metabolic panel (02/12/2025 7:53 PM CDT) Sodium 142 135 - 145 mmol/L Potassium, pl 3.9 3.3 - 4.9 mmol/L [facility] Chloride 107 97 - 110 mmol/L [facility] CO2 23 22 - 32 mmol/L [facility] Anion gap 12 2 - 15 mmol/L [facility] BUN 14 6 - 25 mg/dL [facility] Creatinine 1.31(H) 0.60 - 1.10 mg/dL [facility] Glucose 91 70 - 199 mg/dL [facility] [...] classification and Diagnosis of Diabetes Diabetes Care 2021; 46: S19-S40. Current interpretive data was last [...] MD LAB BLOOD ORDER GLADIS Final Result [facility] [address] [place] [address] * (ABNORMAL) CBC with auto differential (02/12/2025 7:53 PM CDT) Pathologist [facility] WBC 8.12 3.80 - 9.90 K/cumm Hgb 7.8(L) 11.9 - 15.5 g/dL [facility] Hct 28.9(L) 35.6 - 45.5 % [facility] Plt 287 150 - 400 K/cumm [facility] MPV 9.9 9.1 - 12.3 fL [facility] RBC 4.05 3.90 - 5.20 M/cumm [facility] MCV 71.4(L) 81.3 - 96.4 fL [facility] MCH 19.3(L) 27.1 - 33.3 pg [facility] MCHC 27.0(L) 32.3 - 35.7 g/dL [facility] RDW CV 20.4(H) 11.1 - 14.9 % [facility] RDW SD 51.9(H) 35.7 - 48.1 fL [facility] NRBC abs 0.00 0.00 - 0.01 K/cumm [facility] Blood Venous blood specimen / Unknown 02/12/2025 7:53 PM CDT 02/12/2025 7:57 PM CDT Seth Ann III, MD LAB BLOOD ORDER GLADIS Final Result Performing Organization Address [facility] de Phone Number [address] Department [place] [address] * ECG 12 lead (02/12/2025 7:34 PM CDT) 02/12/2025 7:34 PM CDT Narrative [facility] - 02/13/2025 1:31 PM CDT Vent Rate: 83 bpm RR Interval: 722 msec SD Interval: 0 msec QRS Duration: 97 msec QT Interval: 392 msec QTC Interval: 431 msec P-R-T [place]: 0 - 37 - 60 degrees IMPRESSION: Sinus rhythm with PACs and PVCs VOLTAGE CRITERIA FOR LVH [MEETS CRITERIA IN ONE OF: R(aVL), S(V1), R(V5), R(V5/V6)+S(V1)] MODERATE ST DEPRESSION [0.05+ mV ST DEPRESSION] ABNORMAL ECG No significant changes compared to February 28, 20[address]: [address] Lila Argueta [facility] Seth Ann III, MD ECG ORDERABLES Final Result Performing Organization Address [facility] de Phone Number [facility] [employer] [facility] documented in this encounter Visit Diagnoses Diagnosis [...] mL 3 mL, nebulization, Once (respiratory therapy assistant), On 02/12/25 at 2251, For 1 dose Given 02/12/2025 10:54 PM CDT 3 mL ketorolac (TORADOL) 30 mg/mL injection 15 mg 15 mg, intravenous, Once, On 02/12/25 at 2022, For 1 dose, For Adult IV push, administer over 15 seconds Given 02/12/2025 9:10 PM CDT 15 mg morphine injection 4 mg 4 mg, intravenous, Administer over 4 Minutes, Once, On 02/12/25 at 2010, For 1 dose Given 02/12/2025 8:12 PM [...] 1,000 mg, oral, Once, On 02/12/25 at 3, For 1 dose 2220 (Given - Provid er: Reginald Gordillo RN) ipratropium-albuteroL (DUO-NEB) 0.5-2.5 mg/3 mL nebulizer solution 3 mL (COMPLETED) 3 mL, nebulization, Once (respiratory therapy assistant), On 02/12/25 at 2250, For 1 dose 2253 (Given - Provid er: Guido Enrique, AUTOPSY PATHOLOGIST) ketorolac (TORADOL) 30 mg/mL injection 15 mg (COMPLETED) 15 mg, intravenous, Once, On 02/12/25 at 2022, For 1 dose, For Adult IV push, administer over 15 seconds 2109 (Given - Provid er: Reginald Gordillo RN) morphine injection 4 mg (COMPLETED) 4 mg, intravenous, Administer over 4 Minutes, Once, On 02/12/25 at 2010, For 1 dose 2011 (Given - Provid er: Reginald Gordillo RN) ondansetron (ZOFRAN) injection 4 mg (COMPLETED) 4 mg, intravenous, Administer over 2 Minutes, Once, On 02/12/25 at 1948, For 1 dose 1948 (Given - Provid er: Reginald Gordillo RN) documented in this encounter Orders IV Count Last Ordered Date First Orde red Date SALINE LOCK IV 1 02/12/2025 documented in this encounter Care Teams Tire Bladder Maker Relationship Specialty Start Date End Date Wesley Loaiza PA [address] [place] [address] PCP - General 09/07/18 Karan Snyder MD Consulting Physician Cardiology 05/19/17 Lilia Gomes MD [address] [place] [address] Consulting Physician Cardiovascular Disease 09/08/18 Mando Acuña MD [address] [place] [address] Consulting Physician Cardiology 10/05/18 Larry Gregory MD [address] [place] [address] Consulting Physician Internal Medicine 07/29/19 Nixon Casey MD [address] [place] [address] Consulting Physician Gastroenterology 09/28/19 [place] [address] [place] [id number] Consulting Physician Gastroenterology 11/13/21 documented as of this encounter
[2025-02-13] VITALS (13 sets, daily range): BP systolic 109–128; BP diastolic 46–80; PULSE 76–84; RESP 16–27; TEMP 36.8–37.6; O2SAT 94–100; BMI 15.5
--- NOTE | ~2025-02-13 | CT_ITS ---
EXAMINATION: CT abdomen pelvis wo con DATE: 02/14/2025 12:36 INDICATION: Abdominal pain. TECHNIQUE: Computed tomography (CT) of the abdomen and pelvis was performed without intravenous contrast. Automated exposure control and iterative reconstruction technique were employed. The dose-length product was 172.37 mGy-cm. COMPARISON: CT abdomen and pelvis 03/13/2024 FINDINGS: The visualized portions of lung bases demonstrate mild emphysema. There are airspace and groundglass opacities in left lower lobe and lingula with volume loss, likely atelectasis. There is mild atelectasis in right lung. There is a trace left pleural effusion. Cardiomegaly is noted. There are coronary artery calcifications. No pericardial effusion. There are pacer wires in right atrium and right ventricle. The liver and spleen are normal. There are changes of cholecystectomy. The pancreas and adrenal glands are normal. There is an 8 mm hemorrhagic cyst in right kidney. Left kidney is normal. The bladder is distended. There is diverticulosis of the colon without evidence of diverticulitis. There are changes of right hemicolectomy. There is calcified atherosclerosis of the aorta and many of the other arteries. There are no pathologically enlarged lymph nodes. There is no free intraperitoneal fluid. There is mild lumbar spondylosis. IMPRESSION: 1. No etiology for the patient's symptoms. 2. Emphysema. Reviewed, dictated and finalized at location K.
--- NOTE | ~2025-02-13 | NM_ITS ---
EXAMINATION: NM lung vent and perfusion DATE: 02/14/2025 12:56 INDICATION: Chest pain. Tachycardia. TECHNIQUE: 10.3 mCi xenon-133 by inhalation and 5.1 mCi Tc-99m MAA by intravenous route. Scintigraphic images of the chest were obtained. COMPARISON: FINDINGS: There is homogeneous radiotracer activity throughout the mid to upper lungs on the single breath ventilation sequence. There is matched decreased activity in the bilateral lower lobes and right middle lobe relative to the bilateral upper lobes and lingula on both the ventilation and perfusion images. Small photopenic defect anterior to the left upper lobe resulting from a power supply for a cardiac pacemaker clavicular chest wall. No other unmatched perfusion defects identified. IMPRESSION: 1. Nondiagnostic (low or intermediate) probability for pulmonary embolism. Reviewed, dictated and finalized at location A.
--- NOTE | ~2025-02-13 | XR_ITS ---
EXAMINATION: XR chest 2V, 02/13/2025 17:10 CDT HISTORY: CP COMPARISON: No comparisons available. Technique: 2 views obtained. Findings: COPD changes of the right the lungs are clear. No pneumothorax. Heart is normal size. Mediastinal and hilar contours are within normal limits. Bony thorax no acute abnormality. Left pacemaker. Impression: No acute cardiopulmonary abnormality. Reviewed, dictated and finalized at location A. Impression: No acute cardiopulmonary abnormality.
--- NOTE | ~2025-02-13 | XR_ITS ---
Examination: XR chest 1V portable Clinical History: possible aspiration Comparison: 02/13/2025 Technique: Portable AP Findings: Left ICD. Heart size mildly enlarged. Mild retrocardiac streaky opacities and CP angle blunting. Hyperinflation. No acute bony abnormality. IMPRESSION: 1. Mild retrocardiac atelectasis and/or airspace disease, with small pleural effusion. Reviewed, dictated and finalized at location R. IMPRESSION: 1. Mild retrocardiac atelectasis and/or airspace disease, with small pleural e ffusion.
--- NOTE | 2025-02-13 16:39 | ECG_ITS ---
Test Date: 2025-02-13 16:50:15 Measurements Intervals [place] Rate: 89 P: 265 NM: 117 QRS: 74 QRSD: 90 T: 64 QT: 369 QTc: 450 Interpretive Statements ECTOPIC ATRIAL RHYTHM WITH OCCASIONAL VENTRICULAR PREMATURE COMPLEXES ANTEROSEPTAL MYOCARDIAL INFARCTION , OF INDETERMINATE AGE [40+ ms Q WAVE IN V1-V4] ABNORMAL ECG Electronically Signed On 02-14-2025 07:49:00 CDT by Marty Carmona M.D.
--- OUTSIDE RECORDS SUMMARY | 2025-02-13 16:41 | XMS_ITS | Clinical Summary ---
Author Organization [facility] [address] Address [address] [place] [address] Care Team Providers Care Pilot Supervisor Name Role Phone Karan Snyder MD Unavailable [phone] Wesley Loaiza Primary Care Provider + Lilia Gomes MD Unavailable Mando Acuña MD Unavailable [phone] Larry Gregory MD Unavailable [phone] Nixon Casey MD Unavailable Renan Espino MD Unavailable Allergies Active Allergy Reactions Criticality Noted Date Comments Lorazepam Anxiety,Other (See comments) Low 02/28/2015 Reaction: Other Penicillins Anaphylaxis High 02/28/2015 Sulfa (Sulfonamide Antibiotics) Anaphylaxis High Medications aspirin 81 mg enteric coated tablet Take 1 tablet (81 mg total) by mouth daily Active ondansetron ODT (ZOFRAN-ODT) 4 mg disintegrating tablet Dissolve 1 tablet oral every 4 hours as needed for nausea or vomiting. 15 tablet [address] (PROTONIX) 40 mg EC tabletIndications:M ucositis Prophylaxis,Treatme nt of Non-Bleeding Gastric Disorder Take 1 tablet (40 mg total) by mouth daily 30 tablet 2 Active albuterol HFA (PROVENTIL HFA,VENTOLIN HFA,PROAIR HFA) 90 mcg/actuation inhaler Inhale 1-2 puffs every 6 (six) hours as needed for wheezing 1 g 2 Active budesonide-formoter oL (SYMBICORT) 160-4.5 mcg/actuation inhaler Inhale 2 puffs 2 (two) times a day [address] (CYMBALTA) 60 mg capsule Take 1 capsule (60 mg total) by mouth every morning Active losartan (COZAAR) 100 mg tablet Take 1 tablet (100 mg total) by mouth every morning Active nitroglycerin (NITROSTAT) 0.[address] 1 tablet (0.4 mg total) under the tongue every 5 (five) minutes as needed for chest pain 3 Active tiZANidine (ZANAFLEX) 4 mg tablet Take 1 tablet (4 mg total) by mouth 3 (three) times a day 3 Active amLODIPine (NORVASC) 5 mg tablet Take 1 tablet (5 mg total) by mouth every morning 3 Active gabapentin (NEURONTIN) 300 mg capsule Take 1 capsule (300 mg total) by mouth 3 (three) times a day 3 Active nortriptyline (PAMELOR) 10 mg capsule TAKE 2 CAPSULES BY MOUTH EVERY DAY AT BEDTIME 4 Active Nurtec ODT tablet,disintegrati ng TAKE 1 TABLET BY MOUTH DAILY NEEDED FOR 8 DAYS Active oxyCODONE-acetamino phen (PERCOCET) 7.5-325 mg per tablet Take by mouth 2 (two) times a day as needed 4 Active hydrOXYzine (ATARAX) 10 mg tablet TAKE 1 TO 2 TABLETS BY MOUTH 3 TIMES DAILY NEEDED 4 Active cyclobenzaprine (FLEXERIL) 10 mg tablet TAKE 1/2 TO 1 TABLET BY MOUTH TWICE DAILY 4 Active clopidogreL (PLAVIX) 75 mg tablet Take 1 tablet (75 mg total) by mouth every morning 4 Active Eliquis 2.5 mg tablet 4 Active levoFLOXacin (LEVAQUIN) 500 mg tablet Take 1 tablet (500 mg total) by mouth daily 7 tablet 4 Active Active Problems Problem Noted Date Diagnosed Date Chest pain, unspecified type 11/29/2023 Intraparenchymal hemorrhage of brain 11/23/2023 Left-sided chest pain 11/11/2023 Small bowel obstruction 02/03/2023 Hypokalemia 11/12/2021 Abdominal pain 11/09/2021 Thoracic back pain 01/10/2021 Toxic metabolic encephalopathy 07/13/2020 COPD (chronic obstructive pulmonary disease) ([facility]) 07/11/2020 Assessment & Plan (07/11/2020 7:26 PM TOP STOP ATTACHER): Not in exacerbation. Prn duo-nebs. HCAP (healthcare-associated pneumonia) 0 MARIELA (acute kidney injury) [place] 12/01/2019 Hepatitis 12/01/2019 Multiple skin nodules 12/01/2019 Chest pain 11/30/2019 Overview (12/01/2019): Added automatically from request for surgery [id number] Assessment & Plan (07/11/2020 7:20 PM TOP STOP ATTACHER): Suspect fibromyalgia related but need to r/o acs. Troponin levels of 12, 10, continue serial readings. EKG A-paced 71. Pacer interrogated today w/o any events recorded. Cardiology has been consulted for which we appreciate their evaluation and recommendations. Telemetry monitoring. Prn dilaudid. Resumed ranexa, naproxen and asa. Esophageal dysphagia 09/26/2019 Overview (09/27/2019): Added automatically from request for surgery [id number] Severe malnutrition ([facility]) 07/19/2019 Acute CVA (cerebrovascular accident) 07/17/2019 Assessment & Plan (07/17/2019 2:49 PM TOP STOP ATTACHER): S/p TPA. CT and CTA as noted above. Stroke pathway has been initiated. Neurology has been consulted for which we appreciate their evaluation and recommendations. Echo and carotids. PT/OT/ST. Telemetry monitoring. Fall precautions. Melena 10/02/2018 Diarrhea 10/02/2018 Acute chest pain 10/02/2018 Assessment & Plan (09/26/2019 6:29 PM CDT): Suspect possible gerd but need to r/o acs. Troponin levels of <6, <6. Continue to trend. EKG NSR 76 today. Continue Ranexa, PPI and prn analgesics. Cardiology has been consulted for which we appreciate their evaluation and recommendations. Telemetry monitoring. History of VA (myocardial infarction) 10/02/2018 Chronic CHF ([facility]) 10/02/2018 Assessment & Plan (07/11/2020 7:25 PM TOP STOP ATTACHER): Appears compensated. Last echo from 07/2019 with diastolic dysfunction Grade 1, EF 70%. Home medications listed above. Cardiology following. Assessment & Plan (09/26/2019 6:32 PM CDT): S/p AICD placement 2015. Echo 07/2019 with impaired diastolic dysfunction Grade 1 with EF 70%. On ASA, statin, coreg, zetia and prn nitro. Assessment & Plan (07/17/2019 2:50 PM TOP STOP ATTACHER): Echo from 08/2018 with diastolic dysfunction Grade 1, EF 55%. AICD (automatic cardioverter/defibrillator) pres ent 10/02/2018 CKD (chronic kidney disease) 10/02/2018 Hypertension 10/02/2018 Hyperlipidemia 10/02/2018 Depression 10/02/2018 History of CVA (cerebrovascular accident) 2018 Assessment & Plan (07/17/2019 2:52 PM TOP STOP ATTACHER): With residual left sided weakness prior to acute cva today. Migraines 10/02/2018 Assessment & Plan (09/26/2019 6:33 PM CDT): Topamax. Assessment & Plan (07/17/2019 2:52 PM TOP STOP ATTACHER): On Topamax and Imitrex. Leukocytosis 10/02/2018 Gastrointestinal hemorrhage 10/02/2018 Overview (10/03/2018): Added automatically from request for surgery Depression 09/25/2018 Assessment & Plan (07/11/2020 7:24 PM TOP STOP ATTACHER): Remeron and Cymbalta. Musculoskeletal chest pain 09/22/2018 Moderate protein-calorie malnutrition 09/09/2018 AICD (automatic cardioverter/defibrillator) pres ent 09/08/2018 Overview (04/21/2019): Biotronik ICD has followed with [facility] History of atrial fibrillation 09/08/2018 Assessment & Plan (07/11/2020 7:23 PM TOP STOP ATTACHER): S/p AICD placement. EKG a-paced. On Xarelto, coreg and asa. Telemetry monitoring. SLE (systemic lupus erythema tosus related syndrome) ([facility]) 09/08/2018 Assessment & Plan (07/11/2020 7:24 PM TOP STOP ATTACHER): Prednisone and Naproxen. Assessment & Plan (09/26/2019 6:32 PM CDT): Prn analgesics. Assessment & Plan (07/17/2019 2:58 PM TOP STOP ATTACHER): Not in exacerbation. Prn analgesics. History of ventricular tachycardia 09/08/2018 Coronary arteriosclerosis in [place] artery 10/15 Overview (09/06/2016): Coronary artery disease of [place] artery of [place] heart with stable angina pectoris Assessment & Plan (07/11/2020 7:22 PM TOP STOP ATTACHER): S/p stenting to RCA, LAD and OM. On ASA, zetia and atorvastatin. Assessment & Plan (09/26/2019 6:28 PM CDT): S/p KEITH to LAD 2012. On ASA and Brilinta. Assessment & Plan (07/17/2019 2:58 PM TOP STOP ATTACHER): S/p stenting to LAD 2012. Normally on Brilinta and asa. S/p AICD placement. Presence of stent in coronary artery 10/16/2015 Overview (09/06/2016): History of coronary artery stent placement Fatigue 10/16/2015 Overview (09/06/2016): Fatigue, unspecified type NSTEMI (non-ST elevated myocardial infarction) 0 10/16/2015 Overview (09/06/2016): Old VA (myocardial infarction) Angina pectoris 10/16/2015 Overview (09/06/2016): Angina pectoris Hypertension 10/16/2015 Overview (09/06/2016): Resistant hypertension Assessment & Plan (07/11/2020 7:23 PM TOP STOP ATTACHER): Controled on Aldactone, Nifedipine, Hyzaar, clonidine and coreg. Monitor. Assessment & Plan (09/26/2019 6:28 PM CDT): Stable. On Coreg. Assessment & Plan (07/17/2019 2:50 PM TOP STOP ATTACHER): Stable. On five anti-hypertensive's. Will hold d/t hypotension and acute stroke. Monitor closely. Ventricular premature beats 10/16/2015 Overview (09/06/2016): PVCs (premature ventricular contractions) History of stroke 10/16/2015 Overview (09/06/2016): History of stroke Hypercholesterolemia 10/16/2015 Overview (09/06/2016): Hypercholesterolemia Assessment & Plan (09/26/2019 6:29 PM CDT): On statin and zetia. Assessment & Plan (07/17/2019 2:52 PM TOP STOP ATTACHER): Zetia. Former smoker 10/16/2015 Overview (09/06/2016): Former smoker Assessment & Plan (07/11/2020 7:26 PM TOP STOP ATTACHER): Reports quit 4 years ago. Assessment & Plan (07/17/2019 2:54 PM TOP STOP ATTACHER): Quit four years ago. Urinary tract infection 05/16/2015 Hydronephrosis 03/23/2015 Lupus erythematosus 02/28/2015 Malignant neoplasm of urinary bladder 02/28/2015 Fibromyalgia Assessment & Plan (07/11/2020 7:22 PM TOP STOP ATTACHER): Gabapentin and prn analgesics. Monitor. Assessment & Plan (07/17/2019 2:59 PM TOP STOP ATTACHER): Lyrica. Prn analgesics. Chronic pain syndrome Vasovagal syncope Nausea and vomiting Colitis Encounters Date Type Department Care Team Description 02/12/2025 7:45 PM CDT - 02/12/2025 11:18 PM CDT Emergency [facility] Emergency Department [address] [place] [address] Seth Ann III, MD Fall, initial encounter (Primary Dx); Acute pain of left shoulder Discharge Disposition: Discharge to home or self care from Last 3 Months Immunizations Immunization Administration Dates Next Due Influenza, Quadrivalent, Spl it, Intramuscular 03/04/2019 Influenza, Quadrivalent, Spl it, Preservative Free, Intramuscular 03/04/2020,03/21/2019,06/29/2018 Pneumococcal Polysaccharide PPV23 03/04/2020 Tetanus Toxoid, Unspecified 06/02/2015 Surgical History Surgery Date Site/Laterality Comments OTHER SURGICAL HISTORY Appendectomy & cholecystectomy OTHER SURGICAL HISTORY Breast implant removal OTHER SURGICAL HISTORY Bilat great toenails removed OTHER SURGICAL HISTORY Hysterectomy, JUDAH, with BSO & bladder suspension APPENDECTOMY CARDIAC SURGERY BREAST SURGERY Medical History Medical History Date Comments Cerebrovascular accident (CVA) (HCC) Stroke Hx Other Medical TIA - multiple Hx Other Medical Lupus Hx Other Medical 2015 bladder cancer, Zahira Diaz.; Comments: ARNULFOU 10/16/2015 - Coronary artery disease Hypertension Migraines Lupus Depression VA (myocardial infarction) (HCC) Cancer (HCC) A-fib (HCC) Family History Medical History Relation Name Comments Other Father 2 Nsrg. Home; Heart attack Mother 2 Myocardial Infa rction; Cause of : Myocardial Infarction Relation Name Status Comments Father 1 Alive Father 2 Mother 1 (Age 57) Mother 2 Social History Tobacco Use Types Packs/Day Years Used Date Smoking Tobacco: Former Cigarettes 1 55 1 960 - 2015 Smokeless Tobacco: Never Tobacco Cessation:Counseling Given: Not Answered Comments:quit 3 1/2 years ago Alcohol Use Standard Drinks/Week Comments Not Currently [...] often do you attend chur ch or christian services? More than 4 times per year 02/04/2023 Do you belong to any clubs o r organizations such as restorationist groups, unions, fraternal or athletic groups, or [...] place to sleep or slept in a halfway (including now)? No 02/04/2023 Personal Safety Answer Date Recorded Have you ever been in or are you currently in a harmful physical or emotional relationship or is someone making you feel afraid or unsafe? Denies 02/12/2025 Comments No Sex and Gender Information Value Date Recorded Sex Assigned at Not on file Legal Sex Female 1:55 AM TOP STOP ATTACHER Gender Identity Not on file Sexual Orientation Not on file Obstetrics History Last Filed Vital Signs Vital Sign Reading Time Taken Comments Blood Pressure 136/63 02/12/2025 10:00 PM CDT Pulse 72 02/12/2025 10:00 PM CDT Temperature 36.9 C (98.4 F) 02/12/2025 8:05 PM CDT Respiratory Rate 22 02/12/2025 10:54 PM CDT Oxygen Saturation 98% 02/12/2025 10:54 PM CDT Inhaled Oxygen Concentration - - Weight 47.6 kg (105 lb) 02/12/2025 8:05 PM CDT Height 162.6 cm (5' 4) 02/28/2024 2:18 PM CDT Body Mass Index 18.02 02/28/2024 2:18 PM CDT Plan of Treatment Health Maintenance Due Date Last Done Comments Osteoporosis Screening-Bone Density Scan 1950 Hepatitis B Screening 1967 Lung Cancer Screening 1999 Zoster Vaccine (1 of 2) 1999 Well Visit 65+ 2014 DTaP/Tdap/Td Vaccine (1 - Tdap) 06/03/2015 6 Depression Screening 07/17/2020 07/17/2019, 07/17/2019, 09/21/2018, Additional history exists Pneumococcal vaccine 65+ (2 of 2 - PCV) 12/19/2022 12/19/2021, 03/04/2020 Fall Risk Assessment 11/29/2024 11/30/2023 Influenza Vaccine (#1) 2025 0, 03/21/2019, 03/04/2019, Additional history exists Colon Cancer Screening-Colonoscopy 11/14/2031 11/13/2021, 10/05/2018 Hepatitis C Screening Completed 11/10/2021, 019 Colon Cancer Screening-CT Colonography Discontinued 11/13/2021, 10/05/2018 Colon Cancer Screening-DNA Stool Discontinued 11/14/19 22, 10/05/2018 Colon Cancer Screening-FIT Discontinued 11/13/2021, Colon Cancer Screening-Sigmoidoscopy Discontinued 11/13/2021, 10/05/2018 Medical Devices Implanted Type Area Acquisition Marketing Manager Device Identifier Shelf Expiration Date Model / Serial / Lot Biotech ICD Chest [employer] [id number] Angio-Seal Evolution 6fr .035in Guidewire Bypass Tube Suture - [id number] Implanted:Qty: 1 on 01/31/2020 by Robb Wilson MD at [facility] [employer] 07/30/2020 [id number] / / [id number] Procedures Procedure Name Priority Date/Time Associated Diagnosis Comments CT HEAD WO CONTRAST ED 02/12/2025 9 :32 PM CDT XR CHEST 1 VIEW ED 02/12/2025 8:02 PM CDT EGFR STAT 02/12/2025 7:53 PM CDT DIFFERENTIAL AUTO STAT 02/12/2025 7:5 3 PM CDT TROPONIN T HIGH-SENSITIVITY SERIES (BASELINE, 2HR, 4HR, 6HR) STAT 02/12/2025 7:53 PM CDT COMPREHENSIVE METABOLIC PANEL STAT 02/12/2025 7:53 PM CDT CBC WITH AUTO DIFFERENTIAL STAT 02/12/2025 7:53 PM CDT ECG 12-LEAD STAT 02/12/2025 7:34 PM CDT COLONOSCOPY 11/13/2021 2:19 PM CDT HEPATITIS PANEL, ACUTE Routine 3:29 PM CDT from Last 3 Months or Most Recently Relevant to Health Maintenance Results * CT Head WO Contrast (02/12/2025 9:32 PM CDT) Anatomical Region Laterality Modality Head and Neck N/A Computed Tomogra phy 02/12/2025 9:30 PM CDT Impressions 02/13/2025 12:42 PM CDT 1. No acute intracranial abnormality. 2. Mild atrophy. 3. Moderate microvascular white matter change. For the purposes of quality assurance monitor final, this study was initially interpreted by teleradiology. [...] change. For the purposes of quality assurance monitor final, this study was initially interpreted by teleradiology. [...] congestion. Electronically signed by: Aaliyah Remy M.D. us Seth Ann III, MD IMG XR PROCEDUR ES Final Result * (ABNORMAL) Troponin T high-sensitivity series (baseline, [...] LAB BLOOD ORDER GLADIS Final Result [address] [address] [address] [place] [address] * (ABNORMAL) eGFR (02/12/2025 7:53 PM CDT) [...] 7:53 PM CDT 02/12/2025 7:56 PM CDT Arnia Mendez MD LAB BLOOD ORDERABLES Final Res ult [facility] [address] [place] [address] * (ABNORMAL) Differential, auto (02/12/2025 7:53 PM CDT) Neutrophil abs 5.37 1.50 - 6.50 K/cumm Imm gran abs 0.02 0.00 - 0.10 K/cumm [facility] Lymphocyte abs 0.93 0.80 - 3.30 K/cumm [facility] Monocyte abs 0.97(H) 0.20 - 0.80 K/cumm [facility] Eosinophil abs 0.80(H) 0.00 - 0.50 K/cumm [facility] Basophil abs 0.03 0.00 - 0.10 K/cumm [facility] Neutrophil pct 66.1 % [facility] Comment: Interpretive Data Percent cell count reference ranges are not reported, since discordance with absolute values may lead to misinterpretation of CBC data. Current Interpretive Data was last revised on 2017. Imm gran pct 0.2 % [facility] Comment: Interpretive Data Percent cell count reference ranges are not reported, since discordance with absolute values may lead to misinterpretation of CBC data. Current Interpretive Data was last revised on 2017. Lymphocyte pct 11.5 % [facility] Comment: Interpretive Data Percent cell count reference ranges are not reported, since discordance with absolute values may lead to misinterpretation of CBC data. Current Interpretive Data was last revised on 2017. Monocyte pct 11.9 % [facility] Comment: Interpretive Data Percent cell count reference ranges are not reported, since discordance with absolute values may lead to misinterpretation of CBC data. Current Interpretive Data was last revised on 2017. Eosinophil pct 9.9 % [facility] Comment: Interpretive Data Percent cell count reference ranges are not reported, since discordance with absolute values may lead to misinterpretation of CBC data. Current Interpretive Data was last revised on 2017. Basophil pct 0.4 % [facility] Comment: Interpretive Data Percent cell count reference ranges are not reported, since discordance with absolute values may lead to misinterpretation of CBC data. Current Interpretive Data was last revised on 2017. Blood 02/12/2025 7:53 PM CDT 02/12/2025 7:57 PM CDT us Seth Ann III, MD LAB BLOOD ORDER GLADIS Final Result [facility] [address] [place] [address] * (ABNORMAL) CBC with auto differential (02/12/2025 7:53 PM CDT) WBC 8.12 3.80 - 9.90 K/cumm Hgb 7.8(L) 11.9 - 15.5 g/dL [facility] Hct 28.9(L) 35.6 - 45.5 % [facility] Plt 287 150 - 400 K/cumm [facility] MPV 9.9 9.1 - 12.3 fL [facility] RBC 4.05 3.90 - 5.20 M/cumm [facility] MCV 71.4(L) 81.3 - 96.4 fL [facility] MCH 19.3(L) 27.1 - 33.3 pg [facility] MCHC 27.0(L) 32.3 - 35.7 g/dL [facility] RDW CV 20.4(H) 11.1 - 14.9 % [facility] RDW SD 51.9(H) 35.7 - 48.1 fL [facility] NRBC abs 0.00 0.00 - 0.01 K/cumm [facility] Blood Venous blood specimen / Unknown 02/12/2025 7:53 PM CDT 02/12/2025 7:57 PM CDT Seth Ann III, MD LAB BLOOD [place] [address] [address] [place] [address] * (ABNORMAL) Comprehensive metabolic panel (02/12/2025 7:53 [...] BLOOD ORDER GLADIS Final Result [address] [address] [address] Department of Laboratories [place] [id number] * ECG 12 lead (02/12/2025 7:34 PM CDT) 02/12/2025 7:34 PM CDT Narrative [facility] - 02/13/2025 1:31 PM CDT Vent Rate: 83 bpm RR Interval: [address] Interval: 0 msec QRS Duration: 97 msec QT Interval: 392 msec QTC Interval: 431 msec P-R-T Craig: 0 - 37 - 60 degrees IMPRESSION: Sinus rhythm with PACs and PVCs VOLTAGE CRITERIA FOR LVH [MEETS CRITERIA IN ONE OF: R(aVL), S(V1), R(V5), R(V5/V6)+S(V1)] MODERATE ST DEPRESSION [0.05+ mV ST DEPRESSION] ABNORMAL ECG No significant changes compared to February 28, [address]: [address] Lila Argueta [facility] Seth Ann III, MD ECG ORDERABLES Final Result Performing Organization Address [facility] Co de Phone Number [facility] * COLONOSCOPY (11/13/2021 2:19 PM CDT) Anatomical Region Laterality Modality Other Narrative Procedure Note Renan Espino MD - 11/13/2021 2:19 PM CDT [facility] Endoscopy [facility] Patient Name: Teagan Sigala Procedure Date: 11/13/2021 2:19 PM Date of : 1950 Admit Type: Inpatient Age: 71 Gender: Female Note Status: Finalized Attending MD: Renan Espino M.D. Procedure Date: 11/13/2021 Procedure: Colonoscopy Indications: Generalized abdominal pain, , Abnormal CT of the GI tract (colon wall thickening), Providers: Renan Espino M.D., Ned Wesley, MACHO,Renetta Alcocer, RN, Eliu Britton WOMEN'S ACTIVITIES ADVISER (Anesthesia Staff), Andrew Henderson, Applicator Sprayer Referring MD: Crystal Zavala Medicines: Monitored Anesthesia Care Complications: No immediate complications. Estimated Blood Loss: Estimated blood loss was minimal. Procedure: Pre-Anesthesia Assessment: - Prior to the procedure, a History and Physicalwas performed, and patient medications and allergieswere reviewed. The patient is competent. The risks and benefits of the procedure and the sedation optionsand risks were discussed with the patient. Allquestions were answered and informed consent was obtained. Patient identification and proposed procedure were verified by the physician, the nurse and the anesthesiologist in the procedure room. MentalStatus Examination: alert and oriented. AirwayExamination: normal oropharyngeal airway and neck mobility. Respiratory Examination: clear to auscultation. CV Examination: normal. Prophylactic Antibiotics: The patient does not require prophylactic antibiotics. Prior Anticoagulants: The patient has taken no anticoagulant or antiplatelet agents. ASA Grade Assessment: III - A patient with severe systemic disease. After reviewing the risks and benefits,the patient was deemed in satisfactory condition to undergo the procedure. The anesthesia plan was touse monitored anesthesia care (MAC). Immediately priorto administration of medications, the patient was re-assessed for adequacy to receive sedatives. The heart rate, respiratory rate, oxygen saturations, blood pressure, adequacy of pulmonary ventilation,and response to care were monitored throughout the procedure. The physical status of the patient was re-assessed after the procedure. - The risks and benefits of the procedure and the sedation options and risks were discussed with the patient. All questions were answered and informed consent was obtained. After I obtained informed consent, the scope was passed under direct vision. Throughout theprocedure, the patient's blood pressure, pulse, and oxygen saturations were monitored continuously. The scopewas passed under direct vision. The Colonoscope was introduced through the anus and advanced to the the cecum, identified by appendiceal orifice andileocecal valve. The colonoscopy was performed without difficulty. The patient tolerated the procedurewell. The quality of the bowel preparation was adequate.The bowel preparation used was Plenvu via split dose instruction. Findings: Two sessile polyps were found in the sigmoid colon and transversecolon. The polyps were 4 to 5 mm in size. These polyps were removed with a jumbo cold forceps. Resection and retrieval were complete. Estimated blood loss was minimal. Multiple small and large-mouthed diverticula were found in the entire colon. The exam was otherwise without abnormality on direct and retroflexion views. A few small patchy angiodysplastic lesions without bleeding werefound in the cecum. Impression: - Two 4 to 5 mm polyps in the sigmoid colon and inthe transverse colon, removed with a jumbo coldforceps. Resected and retrieved. - Diverticulosis in the entire examined colon. - A few non-bleeding colonic angiodysplasticlesions. Recommendation: - High fiber diet. - Repeat colonoscopy is not recommended. Procedure Code(s): --- Professional --- 10508, Colonoscopy, flexible; with biopsy, singleor multiple Diagnosis Code(s): --- Professional --- D12.5, Benign neoplasm of sigmoid colon D12.3, Benign neoplasm of transverse colon (hepatic flexure or splenic flexure) K55.20, Angiodysplasia of colon withouthemorrhage R10.84, Generalized abdominal pain K57.30, Diverticulosis of large intestine without perforation or abscess without bleeding R93.3, Abnormal findings on diagnostic imaging of other parts of digestive tract CPT copyright 2020 [employer]. All rights reserved. The codes documented in this report are preliminary and upon certified procedural coder reviewmay be revised to meet current compliance requirements. Electronically signed by Renan Espino M.D. Renan Espino M.D. 11/13/2021 3:49:19 PM Number of Addenda: 0 Note Initiated On: 11/13/2021 2:19 PM Renan Espino MD ENDOSCOPY PROCEDURES Fi nal Result * Hepatitis panel, acute (11/10/2021 3:29 PM CDT) Hep A IgM Nonreactive Nonreactive [facility] Comment: Interpretive Data: If Hep A IgM Ab is reported as Equivocal, a new sample should be drawn in two weeks for testing. Current interpretive data was last revised on 19. Hep B core IgM Nonreactive Nonreactive [facility] Comment: Interpretive Data If HepB Core IgM Ab is reported as Equivocal, a new sample should be drawn in two weeks for testing. Current interpretive data was last revised on 19. Hep C Ab Nonreactive Nonreactive [facility] Comment: Interpretive Data Nonreactive: Antibodies to HCV not detected. Does NOT exclude the possibility of recent exposure to HCV. Equivocal: Equivocal for HCV antibodies. Supplemental molecular testing will be automatically performed to determine infection status in accordance with current CDC screening recommendations. Reactive: Positive for HCV antibodies. This may represent current or past HCV infection. Supplemental molecular testing will be automatically performed to determine current infection status in accordance with current CDC screening recommendations. Interpretive data was last revised on 2019. HepBsAg Nonreactive Nonreactive [facility] Blood 11/10/2021 3:29 PM CDT 11/10/2021 3:32 PM CDT Renan Espino MD LAB MICROBIOLOGY - [facility] ORDERABLES Final Result [facility] [id number] Department [place] [address] from Last 3 Months or Most Recently Relevant to Health Maintenance Insurance [facility] IDPA HOSPICE IDPA [facility] MEDICARE ADVANTAGE Advance Directives For more information, please contact: [phone] Documents on File Type Date Recorded Patient Gallery Or Museum Guide Expl anation ADVANCE DIRECTIVE 09/23/2018 9:15 AM BONNY TAYLOR ADVANCE DIRECTIVE 09/23/2018 9:13 AM POWER OF BUTTON PUSHER-MEDICAL ADVANCE DIRECTIVE 09/23/2018 9:13 AM POWER OF BUTTON PUSHER-MEDICAL * Full Code (Latest Code Status on File) Date Activated Date Inactivated Comments 11/29/2023 5:28 PM 11/30/2023 8:08 PM * Full Code Date Activated Date Inactivated Comments 11/11/2023 6:11 PM 11/12/2023 6:51 PM * Full Code Date Activated Date Inactivated Comments 02/03/2023 9:33 AM 02/04/2023 8:43 PM * Full Code Date Activated Date Inactivated Comments 11/13/2021 12:59 PM 11/13/2021 9:34 PM * Full Code Date Activated Date Inactivated Comments 11/09/2021 5:23 PM 11/13/2021 12:59 PM Healthcare Agents on File Name Relationship Healthcare Agent Relationshi p Communication Maxi العلي Health Care Agent Care Teams Pilot Supervisor Relationship Specialty Start Date End Date Wesley Loaiza PA [address] [place] [id number] PCP - General 09/07/18 Karan Snyder MD Consulting Physician Cardiology 05/19/17 Lilia Gomes MD [address] [place] [id number] Consulting Physician Cardiovascular Disease 09/08/18 Mando Acuña MD [address] [place] [id number] Consulting Physician Cardiology 10/05/18 Larry Gregory MD [address] [place] [address] Consulting Physician Internal Medicine 07/29/19 Nixon Casey MD [address] [place] [address] Consulting Physician Gastroenterology 09/28/19 [place] [id number] [address] Consulting Physician Gastroenterology 11/13/21
--- OUTSIDE RECORDS SUMMARY | 2025-02-13 16:41 | XMS_ITS | Clinical Summary ---
Author Organization [facility] Address [address] [place] [address] Care Team Providers Care Street Inspector Name Role Phone Cm Loaiza APRN-STRETCHING MACHINE TENDER FRAME Primary Care Provider Source Comments [facility],non-owned Affiliates and Associated Physician Practices is amultiple site organization consisting of ambulatory clinics and hospital sitesin [place], [place], [place] and [place]. This disclosure is being madepursuant to the Care Everywhere program and may not contain all information available regarding this patient. Last updated 18.[employer] Allergies Active Allergy Reactions Criticality Noted Date Comments Lorazepam Psychiatric Medium 05/02/2016 Penicillins 03/21/2009 Sulfa Drugs 03/21/2009 Medications * Be aware that medications may not be up to date on this document. Alwaysverify current medications with the patient. aspirin 81 MG tablet Take 1 (one) tablet by mouth once daily Active atorvastatin (LIPITOR) 40 MG tablet Take 1 (one) tablet by mouth at bedtime Active gabapentin (NEURONTIN) 800 MG tablet Take 1 (one) tablet by mouth 3 times daily Active amLODIPine (Norvasc) 5 MG tablet Take 1 (one) tablet by mouth once daily Active fluticasone-helen meterol (Advair/Wixela) 250-50 MCG/ACT inhaler Inhale 1 (one) puff by mouth 2 times daily Active DULoxetine (Cymbalta) 60 MG capsule Take 1 (one) capsule by mouth once daily Active nortriptyline (Pamelor) 10 MG capsule Take 2 (two) capsules by mouth at bedtime Active traZODone (Desyrel) 100 MG tablet Take 1 (one) tablet by mouth at bedtime Active pantoprazole EC (Protonix) 40 MG tablet Take 1 (one) tablet by mouth once daily Active Nutritional Supplement LIQD Take 1 container by mouth 3 times daily Low Calorie High Protein Supplement Examples: Ensure High Protein/Boost High Protein/Premier Protein High Calorie High Protein Supplement Examples: Ensure Enlive/Ensure Plus High Protein/Boost Plus/Equate Plus Diabetic Supplement Examples: Ensure High Protein/Glucern a/Boost Glucose Control/Enterex Diabetic Renal Supplement Examples: Nepro/Novosourc e Renal Clear Liquid Supplement Examples: Ensure Clear/Premier Protein Clear/Resource Boost Breeze/Prosourc e High Protein Gelatin Vegan or Milk Free Supplement Examples: Ensure Plant/Orgain Active Active Problems Problem Noted Date Diagnosed Date Severe protein-calorie malnutrition 04/30/2024 Lymph node enlargement 04/28/2024 Brain lesion 04/28/2024 MARIELA (acute kidney injury) 04/28/2024 Abdominal aortic aneurysm (A AA) without rupture, unspecified part 04/28/2024 Dual implantable cardioverter-defibrillator in s itu 01/21/2022 Body mass index (BMI) less than 16.5 01/21/2022 Chest pain 09/28/2020 Weakness 03/21/2009 Social History Tobacco Use Types Packs/Day Years Used Date Smoking Tobacco: Former Cigarettes 0.5 30 0 06/02/1983 - 06/02/2013 Smokeless Tobacco: Former Alcohol Use Standard Drinks/Week Comments No 0 (1 standard drink = 0.6 oz pur e alcohol) AUDIT-C Answer Date Recorded Q1: How often do you have a drink containing alc ohol? Patient declined 04/29/2024 Q2: How many drinks containi ng alcohol do you have on a typical day when you are drinking? Patient declined 04/29/2024 Q3: How often do you have si x or more drinks on one occasion? Patient declined 04/29/2024 Overall Financial Resource Strain (CARDIA) Answe r Date Recorded How hard is it for you to pa y for the very basics like food, housing, medical care, and heating? Patient declined 04/29/2024 PHQ-2 Answer Date Recorded Patient Health Questionnaire-2 Score 0 05/02/2024 [facility] of Occupat ional Health - Occupational Stress Questionnaire Answer Date Recorded Do you feel stress - tense, restless, nervous, or anxious, or unable to sleep at night because your mind is troubled all the time - these days? Patient declined 04/29/2024 Hunger Vital Sign Answer Date Recorded Within the past 12 months, y ou worried that your food would run out before you got the money to buy more. Patient declined Within the past 12 months, t he food you bought just didn't last and you didn't have money to get more. Patient declined PRAPARE - Transportation Answer Date Re corded In the past 12 months, has l ack of transportation kept you from medical appointments or from getting medications? Patient declined 04/29/2024 In the past 12 months, has l ack of transportation kept you from meetings, work, or from getting things needed for daily living? Patient declined 04/29/2024 Housing Stability Vital Sign Answer Ayo e Recorded In the last 12 months, was t here a time when you were not able to pay the mortgage or rent on time? Patient declined 04/29/20 24 In the past 12 months, how m any times have you moved where you were living? 0 04/29/2024 At any time in the past 12 m [facility], were you homeless or living in a fci (including now)? Patient declined 04/29/2024 Comments No Sex and Gender Information Value Date Recorded Sex Assigned at Not on file Legal Sex Female 6:19 AM CONTROL CABINET ASSEMBLER Gender Identity Not on file Sexual Orientation Not on file Last Filed Vital Signs Vital Sign Reading Time Taken Comments Blood Pressure 149/60 05/03/2024 7:50 AM CONTROL CABINET ASSEMBLER Pulse 76 05/03/2024 8:09 AM CONTROL CABINET ASSEMBLER Temperature 36.7 C (98.1 F) 05/03/2024 7:50 AM CONTROL CABINET ASSEMBLER Respiratory Rate 18 05/03/2024 8:09 AM CONTROL CABINET ASSEMBLER Oxygen Saturation 94% 05/03/2024 8:09 AM CONTROL CABINET ASSEMBLER Inhaled Oxygen Concentration - - Weight 47 kg (103 lb 9.6 oz) 04/28/2024 9:50 PM CONTROL CABINET ASSEMBLER Height 162.6 cm (5' 4) 04/28/2024 1:58 PM CONTROL CABINET ASSEMBLER Body Mass Index 17.78 04/28/2024 1:58 PM CONTROL CABINET ASSEMBLER Plan of Treatment Health Maintenance Due Date Last Done Comments BONE DENSITY TESTING 1950 COLOGUARD (AGES 45-75) - COLON CA SCREENING 1949 CT COLONOGRAPHY - COLON CA SCREENING 1950 FIT - COLON CA SCREENING 1950 FLEX SIG - COLON CA SCREENING 1950 MAMMOGRAM 1950 DTAP/TDAP/TD VACCINES (1 - Tdap) 1968 PNEUMOCOCCAL VACCINE 50+ (1 of 2 - PCV) 1968 ZOSTER VACCINE (1 of 2) 1999 DEPRESSION SCREENING 06/02/2024 MEDICARE AWV CALENDAR YEAR 2024 Respiratory Syncytial Virus (RSV) Vaccine Pt: or over 60 yrs (1 - 1-dose 75+ series) 2024 COVID-19 VACCINE ( - season) 2025 01/15/2021, 09/06/2020, 08/08/2020 INFLUENZA VACCINE (#1) 2025 , 03/04/2020, 03/21/2019, Additional history exists COLON MONITORING 11/14/2031 11/13/2021 COLONOSCOPY - COLON CA SCREENING 11/14/2031 11/13/2021 Colorectal Cancer Screening 11/14/2031 HEPATITIS C SCREENING Completed 12/12/2008 HEPATITIS B VACCINE Aged Out No longe r eligible based on patient's age to complete this topic HIB VACCINE Aged Out No longer eligi ble based on patient's age to complete this topic HPV VACCINE Aged Out No longer eligi ble based on patient's age to complete this topic MENINGOCOCCAL (Group B) VACCINE SHARED DECISION-MAKING Aged Out No longer eligible based on patient's age to complete this topic MENINGOCOCCAL GROUPS A/C/Y/W VACCINE Aged Out No longer eligible based on patient's age to complete this topic Medical Devices Implanted Type Area Visual Display Manager Device Identifier Shelf Expiration Date Model / Serial / Lot Biotronik Iperia 7 Dr-T- 6 Implanted:06/2015 (Quantity not on file) ICD Left: Chest / [id number] / Implant Lead Rv [id number]-1 07/03/2015 Implanted:06/2015 (Quantity not on file) Implant Lead Ventricle Biotronik [id number] / [id number] / Implant [id number]-[id number] Implanted:06/2015 (Quantity not on file) Implant Lead Atrium Biotronik [id number] / [id number] / Procedures Procedure Name Priority Date/Time Associated Diagnosis Comments HEPATITIS SCREEN ACUTE Routine 12/12/2008 3:00 AM CDT Abdominal Pain, Unspecified Site from Last 3 Months or Most Recently Relevant to Health Maintenance Results * HEPATITIS SCREEN ACUTE (12/12/2008 3:00 AM CDT) Hepatitis A Virus Antibody IgM Nonreactive Nonreactive [facility] Hepatitis B Core Virus Antibody IgM Nonreactive Nonreactive [facility] Hepatitis B Virus Surface Antigen Nonreactive Nonreactive [facility] Hepatitis C Antibody Screen Nonreactive Nonreactive [facility] BLOOD SPECIMEN / Unknown 12/12/2008 3:00 AM CDT Narrative Resulting Agency Comment Performed By [facility] - [facility] [address] [place] [address] us Nathanael Callejas MD LAB - CHEMISTRY ORDERABLES F inal Result Performing Organization Address City/State/[facility] Co de Phone Number [facility] [address] [place] [address] from Last 3 Months or Most Recently Relevant to Health Maintenance Insurance MANAGED MEDICARE ADV Advance Directives * Full Code (Latest Code Status on File) Date Activated Date Inactivated Comments 04/28/2024 6:00 PM 05/03/2024 12:56 PM * Full Code Date Activated Date Inactivated Comments 01/22/2022 9:50 AM 01/22/2022 2:19 PM * Full Code Date Activated Date Inactivated Comments 09/28/2020 11:58 AM 09/29/2020 5:[address] Inspector Relationship Specialty Start Date End Date Cm Loaiza, ERNIE-STRETCHING MACHINE TENDER FRAME [address] [place] [id number] PCP - General Nurse Practitioner 02/09/21
--- OUTSIDE RECORDS SUMMARY | 2025-02-13 16:41 | XMS_ITS | Clinical Summary ---
Author Organization [facility] Address [facility] [place] [address] Care Team Providers Care Project Asst Name Role Phone Unavailable Primary Care Provider Unavailabl e Social History Tobacco Use Types Packs/Day Years Used Date Smoking Tobacco: Never Assessed Comments Unknown Sex and Gender Information Value Date Recorded Sex Assigned at Not on file Legal Sex Female 7:46 PM CDT Gender Identity Not on file Sexual Orientation Not on file Plan of Treatment Health Maintenance Due Date Last Done Comments Colorectal Cancer Screening Colonoscopy (10 Years) 1950 Hepatitis C 1967 DTaP, Tdap and Td Vaccines ( 1 - Tdap) 1968 Pneumococcal Vaccine: 50+ Ye ars (1 of 1 - PCV) 1999 Zoster Vaccines (1 of 2) 1999 Dexa Scan (General) 2014 RSV Immunization or 60+ Years (1 - 1-dose 75+ series) 2024 COVID-19 Vaccine (1 - 2023-2 5 season) 2025 Meningococcal B Vaccine Aged Out No l onger eligible based on patient's age to complete this topic Meningococcal Vaccine Aged Out No kiki magdiel eligible based on patient's age to complete this topic RSV Immunizations Under 20 Months Aged Out No longer eligible based on patient's age to complete this topic Insurance [employer]
--- OUTSIDE RECORDS SUMMARY | 2025-02-13 16:41 | XMS_ITS ---
Author Organization [facility] [address] Address [address] [place] [address] Care Team Providers Care Wire Coating Operator Metal Name Role Phone Karan Snyder MD Unavailable [phone] Wesley Loaiza Primary Care Provider + Lilia Gomes MD Unavailable Mando Acuña MD Unavailable [phone] Larry Gregory MD Unavailable [phone] Nixon Casey MD Unavailable Renan Espino MD Unavailable [phone] Active Problems Problem Noted Date Diagnosed Date Chest pain, unspecified type 11/29/2023 Intraparenchymal hemorrhage of brain 11/23/2023 Left-sided chest pain 11/11/2023 Small bowel obstruction 02/03/2023 Hypokalemia 11/12/2021 Abdominal pain 11/09/2021 Thoracic back pain 01/10/2021 Toxic metabolic encephalopathy 07/13/2020 COPD (chronic obstructive pulmonary disease) (CM S/HCC) 07/11/2020 Assessment & Plan (07/11/2020 7:26 PM RECREATION COUNSELOR): Not in exacerbation. Prn duo-nebs. HCAP (healthcare-associated pneumonia) 0 MARIELA (acute kidney injury) ([facility]) 12/01/2019 Hepatitis 12/01/2019 Multiple skin nodules 12/01/2019 Chest pain 11/30/2019 Overview (12/01/2019): Added automatically from request for surgery [id number] Assessment & Plan (07/11/2020 7:20 PM RECREATION COUNSELOR): Suspect fibromyalgia related but need to r/o acs. Troponin levels of 12, 10, continue serial readings. EKG A-paced 71. Pacer interrogated today w/o any events recorded. Cardiology has been consulted for which we appreciate their evaluation and recommendations. Telemetry monitoring. Prn dilaudid. Resumed ranexa, naproxen and asa. Esophageal dysphagia 09/26/2019 Overview (09/27/2019): Added automatically from request for surgery [id number] Severe malnutrition ([facility]) 07/19/2019 Acute CVA (cerebrovascular accident) 07/17/2019 Assessment & Plan (07/17/2019 2:49 PM RECREATION COUNSELOR): S/p TPA. CT and CTA as noted [...] evaluation and recommendations. Telemetry monitoring. History of VT (myocardial infarction) 10/02/2018 Chronic CHF ([facility]) 10/02/2018 Assessment & Plan (07/11/2020 7:25 PM RECREATION COUNSELOR): Appears compensated. Last echo from 07/2019 with diastolic dysfunction Grade 1, EF 70%. Home medications listed above. Cardiology following. Assessment & Plan (09/26/2019 6:32 PM CDT): S/p AICD placement 2016. Echo 07/2019 with impaired diastolic dysfunction Grade 1 with EF 70%. On ASA, statin, coreg, zetia and prn nitro. Assessment & Plan (07/17/2019 2:50 PM RECREATION COUNSELOR): Echo from 08/2018 with diastolic dysfunction Grade 1, EF 55%. AICD (automatic cardioverter/defibrillator) pres ent 10/02/2018 CKD (chronic kidney disease) 10/02/2018 Hypertension 10/02/2018 Hyperlipidemia 10/02/2018 Depression 10/02/2018 History of CVA (cerebrovascular accident) 2018 Assessment & Plan (07/17/2019 2:52 PM RECREATION COUNSELOR): With residual left sided weakness prior to acute cva today. Migraines 10/02/2018 Assessment & Plan (09/26/2019 6:33 PM CDT): Topamax. Assessment & Plan (07/17/2019 2:52 PM RECREATION COUNSELOR): On Topamax and Imitrex. Leukocytosis 10/02/2018 Gastrointestinal hemorrhage 10/02/2018 Overview (10/03/2018): Added automatically from request for surgery Depression 09/25/2018 Assessment & Plan (07/11/2020 7:24 PM RECREATION COUNSELOR): Remeron and Cymbalta. Musculoskeletal chest pain 09/22/2018 Moderate protein-calorie malnutrition 09/09/2018 AICD (automatic cardioverter/defibrillator) pres ent 09/08/2018 Overview (04/21/2019): Biotronik ICD has followed with [facility] History of atrial fibrillation 09/08/2018 Assessment & Plan (07/11/2020 7:23 PM RECREATION COUNSELOR): S/p AICD placement. EKG a-paced. On Xarelto, coreg and asa. Telemetry monitoring. SLE (systemic lupus erythema tosus related syndrome) ([facility]) 09/08/2018 Assessment & Plan (07/11/2020 7:24 PM RECREATION COUNSELOR): Prednisone and Naproxen. Assessment & Plan (09/26/2019 6:32 PM CDT): Prn analgesics. Assessment & Plan (07/17/2019 2:58 PM RECREATION COUNSELOR): Not in exacerbation. Prn analgesics. 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 On ASA, zetia and atorvastatin. Assessment & Plan (09/26/2019 6:28 PM CDT): S/p KEITH to LAD 2011. On ASA and Brilinta. Assessment & Plan (07/17/2019 2:58 PM RECREATION COUNSELOR): S/p stenting to LAD 2011. Normally on Brilinta and asa. S/p AICD placement. Presence of stent in coronary artery 10/16/2015 Overview (09/06/2016): History of coronary artery stent placement Fatigue 10/16/2015 Overview (09/06/2016): Fatigue, unspecified type NSTEMI (non-ST elevated myocardial infarction) 0 10/16/2015 Overview (09/06/2016): Old VT (myocardial infarction) Angina pectoris 10/16/2015 Overview (09/06/2016): Angina pectoris Hypertension 10/16/2015 Overview (09/06/2016): Resistant hypertension Assessment & Plan (07/11/2020 7:23 PM RECREATION COUNSELOR): Controled on Aldactone, Nifedipine, Hyzaar, clonidine and coreg. Monitor. Assessment & Plan (09/26/2019 6:28 PM CDT): Stable. On Coreg. Assessment & Plan (07/17/2019 2:50 PM RECREATION COUNSELOR): Stable. On five anti-hypertensive's. Will hold d/t hypotension and acute stroke. Monitor closely. Ventricular premature beats 10/16/2015 Overview (09/06/2016): PVCs (premature ventricular contractions) History of stroke 10/16/2015 Overview (09/06/2016): History of stroke Hypercholesterolemia 10/16/2015 Overview (09/06/2016): Hypercholesterolemia Assessment & Plan (09/26/2019 6:29 PM CDT): On statin and zetia. Assessment & Plan (07/17/2019 2:52 PM RECREATION COUNSELOR): Zetia. Former smoker 10/16/2015 Overview (09/06/2016): Former smoker Assessment & Plan (07/11/2020 7:26 PM RECREATION COUNSELOR): Reports quit 4 years ago. Assessment & Plan (07/17/2019 2:54 PM RECREATION COUNSELOR): Quit four years ago. Urinary tract infection 05/16/2015 Hydronephrosis 03/23/2015 Lupus erythematosus 02/28/2015 Malignant neoplasm of urinary bladder 02/28/2015 Fibromyalgia Assessment & Plan (07/11/2020 7:22 PM RECREATION COUNSELOR): Gabapentin and prn analgesics. Monitor. Assessment & Plan (07/17/2019 2:59 PM RECREATION COUNSELOR): Lyrica. Prn analgesics. Chronic pain syndrome Vasovagal syncope Nausea and vomiting Colitis Current Treatment and Therapy Plans No current plan information found. Past Treatment and Therapy Plans No past plan information found. Lifetime Dose Tracking * Chemical Lifetime Dose Automatic Entry Manual Entr y Fluoro Time 8.5 minutes 0 minutes 8.5 minutes Air kerma at the reference point (Ka,r) 592.034 mGy 0 mGy 592.034 mGy DLP 1,750 mGycm 1,750 mGycm 0 mGycm DAP 422.76 Gy-cm2 0 Gy-cm2 422.76 Gy-cm2
--- OUTSIDE RECORDS SUMMARY | 2025-02-13 16:42 | XMS_ITS | Encounter Summary ---
Author Organization [facility] Address [address] [place] [address] Care Team Providers Care Chiropractic Teacher Name Role Phone Thierry Chadwick DO Primary Care Provider [phone] Karan Snyder MD Unavailable [phone] Wesley Loaiza Primary Care Provider + Lilia Gomes MD Unavailable Mando Acuña MD Unavailable [phone] Ruben San RETENTION MANAGER Unavailable Maico Ellison BALL ENDER Unavailable [phone] Dorian Del Rio DNP Unavailable Larry Gregory MD Unavailable [phone] Nixon Casey MD Unavailable Renan Espino MD Unavailable Encounter Details Date Type Department Care Team (Late st Contact Info) Description 05/20/2017 Documentation [id number] [place], [place] [id number] Kaylah Guerra Social History Tobacco Use Types Packs/Day Years Used Date Smoking Tobacco: Former Smokeless Tobacco: Never Alcohol Use Standard Drinks/Week Comments Not Asked 0 (1 standard drink = 0.6 oz pur e alcohol) Comments No Sex and Gender Information Value Date Recorded Sex Assigned at Not on file Legal Sex Female 1:55 AM MARKETING REGIONAL CONSULTANT Gender Identity Not on file Sexual Orientation Not on file documented as of this encounter Plan of Treatment Not on file documented as of this encounter Visit Diagnoses Not on filedocumented in this encounter Additional Health Concerns Infection Onset Date Last Indicated Resolved Time COVID: Suspected Comment:Negative 09/26/2019 09/26/2019 09/27/2019 11:41 AM CDT Respiratory Infection (TATE), droplet 09/27/2019 09/27/2019 10/04/2019 3:05 AM C DT COVID: Suspected 11/30/2019 11/30/2019 12/01/2019 8:41 AM CDT COVID: Suspected 01/23/2021 01/23/2021 01/23/2021 12:27 PM CDT COVID: Suspected 10/16/2021 10/16/2021 10/17/2021 12:17 AM CDT COVID: Suspected 04/05/2022 04/05/2022 04/05/2022 4:40 PM CDT COVID19 04/05/2022 04/05/2022 04/15/2022 3:05 AM MARKETING REGIONAL CONSULTANT COVID: Recovered Comment:Added based on recent COVID infection. 04/15/2022 05/17/2022 07/14/2022 3:[address] COVID: Suspected 05/17/2022 05/17/2022 05/17/2022 5:25 PM MARKETING REGIONAL CONSULTANT COVID: Suspected 02/03/2023 02/03/2023 02/03/2023 12:10 PM CDT COVID: Suspected 02/28/2024 02/28/2024 02/28/2024 6:24 PM CDT documented as of this encounter Care Teams Chiropractic Teacher Relationship Specialty Start Date End Date Thierry Chadwick DO PCP - General 04/20/13 09/06/18 Wesley Loaiza PA [address] [place] [address] PCP - General 09/07/18 Karan Snyder MD Consulting Physician Cardiology 05/19/17 Lilia Gomes MD [address] [place] [address] Consulting Physician Cardiovascular Disease 09/08/18 Mando Acuña MD [address] [place] [address] Consulting Physician Cardiology 10/05/18 Ruben San, RETENTION MANAGER [address] [facility] [address] [place] [address] [facility] Outpatient Carpenter Helper Maintenance 10/07/18 03/13/20 Maico Ellison, BALL ENDER [address] [facility] [address] [place] [address] [facility] Outpatient Carpenter Helper Maintenance 10/07/18 03/13/20 Dorian Del Rio DNP [address] [facility] [address] [place] [address] Nurse Practitioner Internal Medicine 10/07/18 03/13/20 [place] [address] [facility] [address] [place] [address] Consulting Physician Internal Medicine 07/29/19 [place] [address] [facility] [address] [place] [address] Consulting Physician Gastroenterology 09/28/19 [place] [address] [address] Consulting Physician Gastroenterology 11/13/21 documented as of this encounter
[2025-02-13 17:06] LABS: Hematocrit 25.3 % (37.0-47.0); Immature Granulocyte Percent A 0.3 % (0-0.5); Lymphocytes Absolute Auto 0.69 K/mm3 (0.9-3.2); Mean Corpuscular HGB Conc 26.9 g/dl (32-36); Mean Corpuscular Hemoglobin 19.3 pg (26-34); Mean Corpuscular Volume 71.9 fl (80-100); Nucleated Red Blood Cells Absolute Auto 0.000 K/mm3 (0.0-0.012); Nucleated Red Blood Cells Perc 0.0 % (0.0-0.2); Platelet Count Result 225 k/mm3 (150-375); Red Blood Count 3.52 M/mm3 (4.2-5.4); White Blood Count 9.5 K/mm3 (4.5-10.0)
[2025-02-13 17:19] LABS: INR 1.0; Prothrombin Time 13.3 Seconds (11.1-14.7)
[2025-02-13 17:20] LABS: Partial Thromboplastin Time 25.8 Seconds (22.3-36.8)
[2025-02-13 17:22] LABS: Hemoglobin 6.8 g/dL (12.0-15.0)
[2025-02-13 17:23] LABS: Alanine Aminotransferase 12 U/L (6-35); Albumin Level 3.3 g/dL (3.5-5.1); Alkaline Phosphatase 87 U/L (38-126); Anion Gap 6 mmol/L (4-12); Aspartate Amino Transferase 31 U/L (14-36); Bilirubin,Total 0.1 mg/dL (0.2-1.3); Blood Urea Nitrogen 24 mg/dL (7-17); Calcium 8.1 mg/dL (8.4-10.2); Carbon Dioxide 24 mmol/L (22-30); Chloride 105 mmol/L (98-107); Estimated Glomerular Filt Rate 34; Glucose 94 mg/dL (65-110); Hypochromasia 2+; Lipase 337 U/L (23-300); Microcytosis 2+ (NORMAL); Ovalocytes 1+; Polychromasia Occasional; Potassium 4.5 mmol/L (3.4-5.0); Sodium 135 mmol/L (137-145); Total Protein 6.4 g/dL (6.3-8.2)
[2025-02-13 17:24] LABS: Schistocytes Rare
[2025-02-13 17:30] LABS: Troponin I < 0.012 ng/mL (0.000-0.034)
[2025-02-13] MEDS: ASPIRIN 81 MG CHEWABLE TABLET 324 MG PO (18:07)
--- OUTSIDE RECORDS SUMMARY | 2025-02-13 18:19 | XMS_ITS | Clinical Summary ---
Author Organization [facility] Address Replaced by [facility] [place] [address] Care Team Providers Care Quantitative Developer Name Role Phone Unavailable Primary Care Provider [...]
--- OUTSIDE RECORDS SUMMARY | 2025-02-13 18:19 | XMS_ITS | Clinical Summary ---
Author Organization [facility] [address] Address [address] [place] [address] Care Team Providers Care Airport Traffic Controller Name Role Phone Karan Snyder MD Unavailable [phone] Wesley Loaiza Primary Care Provider + Lilia Gomes MD Unavailable [phone] Mando Acuña MD Unavailable [phone] Larry Gregory MD Unavailable [phone] Nixon Casey MD Unavailable Renan Espino MD Unavailable [phone] Allergies Active Allergy Reactions Criticality Noted Date [...] encephalopathy 07/13/2020 COPD (chronic obstructive pulmonary disease) ([facility]) 07/11/2020 Assessment & Plan (07/11/2020 7:26 PM PRESCRIPTION CLERK): Not in exacerbation. Prn duo-nebs. HCAP (healthcare-associated pneumonia) 0 MARIELA (acute kidney injury) ([facility] 12/01/2019 Hepatitis 12/01/2019 Multiple skin nodules 12/01/2019 Chest pain 11/30/2019 Overview (12/01/2019): Added automatically from request for surgery [id number] Assessment & Plan (07/11/2020 7:20 PM PRESCRIPTION CLERK): Suspect fibromyalgia related but need to r/o acs. Troponin levels of 12, 10, continue serial readings. EKG A-paced 71. Pacer interrogated today w/o any events recorded. Cardiology has been consulted for which we appreciate their evaluation and recommendations. Telemetry monitoring. Prn dilaudid. Resumed ranexa, naproxen and asa. Esophageal dysphagia 09/26/2019 Overview (09/27/2019): Added automatically from request for surgery [id number] Severe malnutrition ([facility]) 07/19/2019 Acute CVA (cerebrovascular accident) 07/17/2019 Assessment & Plan (07/17/2019 2:49 PM PRESCRIPTION CLERK): S/p TPA. CT and CTA as noted [...] evaluation and recommendations. Telemetry monitoring. History of NJ (myocardial infarction) 10/02/2018 Chronic CHF ([facility]) 10/02/2018 Assessment & Plan (07/11/2020 7:25 PM PRESCRIPTION CLERK): Appears compensated. Last echo from 07/2019 with diastolic dysfunction Grade 1, EF 70%. Home medications listed above. Cardiology following. Assessment & Plan (09/26/2019 6:32 PM CDT): S/p AICD placement 2015. Echo 07/2019 with impaired diastolic dysfunction Grade 1 with EF 70%. On ASA, statin, coreg, zetia and prn nitro. Assessment & Plan (07/17/2019 2:50 PM PRESCRIPTION CLERK): Echo from 08/2018 with diastolic dysfunction Grade 1, EF 55%. AICD (automatic cardioverter/defibrillator) pres ent 10/02/2018 CKD (chronic kidney disease) 10/02/2018 Hypertension 10/02/2018 Hyperlipidemia 10/02/2018 Depression 10/02/2018 History of CVA (cerebrovascular accident) 2018 Assessment & Plan (07/17/2019 2:52 PM PRESCRIPTION CLERK): With residual left sided weakness prior to acute cva today. Migraines 10/02/2018 Assessment & Plan (09/26/2019 6:33 PM CDT): Topamax. Assessment & Plan (07/17/2019 2:52 PM PRESCRIPTION CLERK): On Topamax and Imitrex. Leukocytosis 10/02/2018 Gastrointestinal hemorrhage 10/02/2018 Overview (10/03/2018): Added automatically from request for surgery Depression 09/25/2018 Assessment & Plan (07/11/2020 7:24 PM PRESCRIPTION CLERK): Remeron and Cymbalta. Musculoskeletal chest pain 09/22/2018 Moderate protein-calorie malnutrition 09/09/2018 AICD (automatic cardioverter/defibrillator) pres ent 09/08/2018 Overview (04/21/2019): Biotronik ICD has followed with [facility] History of atrial fibrillation 09/08/2018 Assessment & Plan (07/11/2020 7:23 PM PRESCRIPTION CLERK): S/p AICD placement. EKG a-paced. On Xarelto, coreg and asa. Telemetry monitoring. SLE (systemic lupus erythema tosus related syndrome) ([facility]) 09/08/2018 Assessment & Plan (07/11/2020 7:24 PM PRESCRIPTION CLERK): Prednisone and Naproxen. Assessment & Plan (09/26/2019 6:32 PM CDT): Prn analgesics. Assessment & Plan (07/17/2019 2:58 PM PRESCRIPTION CLERK): Not in exacerbation. Prn analgesics. 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 On ASA, zetia and atorvastatin. Assessment & Plan (09/26/2019 6:28 PM CDT): S/p KEITH to LAD 2012. On ASA and Brilinta. Assessment & Plan (07/17/2019 2:58 PM PRESCRIPTION CLERK): S/p stenting to LAD 2012. Normally on Brilinta and asa. S/p AICD placement. Presence of stent in coronary artery 10/16/2015 Overview (09/06/2016): History of coronary artery stent placement Fatigue 10/16/2015 Overview (09/06/2016): Fatigue, unspecified type NSTEMI (non-ST elevated myocardial infarction) 0 10/16/2015 Overview (09/06/2016): Old NJ (myocardial infarction) Angina pectoris 10/16/2015 Overview (09/06/2016): Angina pectoris Hypertension 10/16/2015 Overview (09/06/2016): Resistant hypertension Assessment & Plan (07/11/2020 7:23 PM PRESCRIPTION CLERK): Controled on Aldactone, Nifedipine, Hyzaar, clonidine and coreg. Monitor. Assessment & Plan (09/26/2019 6:28 PM CDT): Stable. On Coreg. Assessment & Plan (07/17/2019 2:50 PM PRESCRIPTION CLERK): Stable. On five anti-hypertensive's. Will hold d/t hypotension and acute stroke. Monitor closely. Ventricular premature beats 10/16/2015 Overview (09/06/2016): PVCs (premature ventricular contractions) History of stroke 10/16/2015 Overview (09/06/2016): History of stroke Hypercholesterolemia 10/16/2015 Overview (09/06/2016): Hypercholesterolemia Assessment & Plan (09/26/2019 6:29 PM CDT): On statin and zetia. Assessment & Plan (07/17/2019 2:52 PM PRESCRIPTION CLERK): Zetia. Former smoker 10/16/2015 Overview (09/06/2016): Former smoker Assessment & Plan (07/11/2020 7:26 PM PRESCRIPTION CLERK): Reports quit 4 years ago. Assessment & Plan (07/17/2019 2:54 PM PRESCRIPTION CLERK): Quit four years ago. Urinary tract infection 05/16/2015 Hydronephrosis 03/23/2015 Lupus erythematosus 02/28/2015 Malignant neoplasm of urinary bladder 02/28/2015 Fibromyalgia Assessment & Plan (07/11/2020 7:22 PM PRESCRIPTION CLERK): Gabapentin and prn analgesics. Monitor. Assessment & Plan (07/17/2019 2:59 PM PRESCRIPTION CLERK): Lyrica. Prn analgesics. Chronic pain syndrome Vasovagal syncope Nausea and vomiting Colitis Encounters Date Type Department Care Team Description 02/12/2025 7:45 PM CDT - 02/12/2025 11:[address] [facility] Emergency Department [address] [place] [address] Seth Ann III, MD Fall, initial encounter [...] Coronary artery disease Hypertension Migraines Lupus Depression NJ (myocardial infarction) (HCC) Cancer (HCC) A-fib (HCC) [...] often do you attend chur ch or yarsanism services? More than 4 times per year 02/04/2023 Do you belong to any clubs o r organizations such as holiness groups, unions, fraternal or athletic groups, or [...] place to sleep or slept in a care home (including now)? No 02/04/2023 Personal Safety Answer Date Recorded Have you ever been in or are you currently in a harmful physical or emotional relationship or is someone making you feel afraid or unsafe? Denies 02/12/2025 Comments No Sex and Gender Information Value Date Recorded Sex Assigned at Not on file Legal Sex Female 1:55 AM PRESCRIPTION CLERK Gender Identity Not on file Sexual Orientation [...] 11/13/2021, 10/05/2018 Medical Devices Implanted Type Area Transport Specialist Device Identifier Shelf Expiration Date Model / Serial / Lot Biotech ICD Chest Biotronik Inc [employer] [id number] Angio-Seal Evolution 6fr .035in Guidewire Bypass Tube Suture - [id number] Implanted:Qty: 1 on 01/31/2020 by Robb Wilson MD at [facility] [employer] 07/30/2020 [id number] / / [id number] Procedures Procedure Name Priority Date/Time Associated Diagnosis [...] white matter change. For the purposes of automotive quality engineer, this study was initially interpreted by teleradiology. [...] white matter change. For the purposes of automotive quality engineer, this study was initially interpreted by teleradiology. [...] dislocation. Electronically signed by: Aaliyah Remy M.D. MD DENAE Lilly IIIG XR PROCEDUR ES Final Result * XR Chest 1 Vw Portable (If patient hemodynamically UNstable or UNable to ambulate) (02/12/2025 8:02PM CDT) Anatomical Region Laterality Modality Body, Chest N/A Computed Radiogr aphy 02/13/2025 12:1 8 PM CDT Impressions 02/13/2025 12:18 PM CDT Mild vascular congestion. Electronically signed by: Aailyah Remy M.D. Narrative 02/13/2025 12:18 PM CDT [...] congestion. Electronically signed by: Aaliyah Remy M.D. MD LUX Lilly III XR PROCEDUR ES Final Result * (ABNORMAL) [...] ORDER GLADIS Final Result Performing Organization Address City/[facility] Co de Phone Number BRIONNANORMA HOOKER [address] [place] [address] * (ABNORMAL) eGFR (02/12/2025 7:53 [...] MD LAB BLOOD ORDERABLES Final Res ult Performing Organization Address City/[facility]/[place] [address] [address] [place] [address] * (ABNORMAL) Differential, auto (02/12/2025 7:53 PM CDT) Neutrophil abs 5.37 1.50 - 6.50 K/cumm Imm gran abs 0.02 0.00 - 0.10 K/cumm CERNER Lymphocyte abs 0.93 0.80 - 3.30 K/cumm CERNER Monocyte abs 0.97(H) 0.20 - 0.80 K/cumm CERNER CH Eosinophil abs 0.80(H) 0.00 - 0.50 K/cumm CERNER Basophil abs 0.03 0.00 - 0.10 K/cumm [facility] 66.1 % CERNER Comment: Interpretive Data Percent cell count reference ranges are not reported, since discordance with absolute values may lead to misinterpretation of CBC data. Current Interpretive Data was last revised on 2017. Imm gran pct 0.2 % CERNER Comment: Interpretive Data Percent cell count reference ranges are not reported, since discordance with absolute values may lead to misinterpretation of CBC data. Current Interpretive Data was last revised on 2017. Lymphocyte pct 11.5 % CERNER Comment: Interpretive Data Percent cell count reference ranges are not reported, since discordance with absolute values may lead to misinterpretation of CBC data. Current Interpretive Data was last revised on 2017. Monocyte pct 11.9 % CERNER Comment: Interpretive Data Percent cell count reference ranges are not reported, since discordance with absolute values may lead to misinterpretation of CBC data. Current Interpretive Data was last revised on 2017. Eosinophil pct 9.9 % CERNER Comment: Interpretive Data Percent cell count reference ranges are not reported, since discordance with absolute values may lead to misinterpretation of CBC data. Current Interpretive Data was last revised on 2017. Basophil pct 0.4 % CERNER Comment: Interpretive Data Percent cell count reference ranges are not reported, since discordance with absolute values may lead to misinterpretation of CBC data. Current Interpretive Data was last revised on 2017. Blood 02/12/2025 7:53 PM CDT 02/12/2025 7:57 PM CDT Seth Ann III, MD LAB BLOOD ORDER GLADIS Final Result [place]OOK[place] [address] Department [place] [address] * (ABNORMAL) CBC with auto differential (02/12/2025 [...] RDW SD 51.9(H) 35.7 - 48.1 fL CERNER CH NRBC abs 0.00 0.00 - 0.01 K/cumm CERNER CH Blood Venous blood specimen / Unknown 02/12/2025 7:53 PM CDT 02/12/2025 7:57 PM CDT Seth Ann III, MD LAB BLOOD ORDER GLADIS Final Result [place] [address] Department [place] [address] * (ABNORMAL) Comprehensive metabolic panel (02/12/2025 7:53 [...] LAB BLOOD ORDER GLADIS Final Result [place] [address] Department [place] [address] * ECG 12 lead (02/12/2025 7:34 PM CDT) 02/12/2025 7:34 PM CDT Narrative [facility] - 02/13/2025 1:31 PM CDT Vent Rate: 83 bpm RR Interval: 722 msec FL Interval: 0 msec QRS Duration: 97 msec QT Interval: 392 msec QTC Interval: 431 msec P-R-T [place]: 0 - 37 - 60 degrees IMPRESSION: Sinus rhythm with PACs and PVCs VOLTAGE CRITERIA FOR LVH [MEETS CRITERIA IN ONE OF: R(aVL), S(V1), R(V5), R(V5/V6)+S(V1)] MODERATE ST DEPRESSION [0.05+ mV ST DEPRESSION] ABNORMAL ECG No significant changes compared to February 28, 2024 Electronically Signed By: Dr. Lila Argueta [facility] us Seth Ann III, MD ECG ORDERABLES Final Result [facility] * COLONOSCOPY (11/13/2021 2:19 PM CDT) Anatomical Region Laterality Modality Other Narrative Procedure Note Renan Espino MD - 11/13/2021 2:19 PM CDT [facility] Endoscopy Lab Patient Name: Teagan Sigala Procedure Date: 11/13/2021 2:19 PM Date of : 1950 Admit Type: Inpatient Age: 71 Gender: Female Note Status: Finalized Attending MD: Renan Espino M.D. Procedure Date: 11/13/2021 Procedure: Colonoscopy Indications: Generalized abdominal pain, , Abnormal CT of the GI tract (colon wall thickening), Providers: Renan Espino M.D., Ned Wesley, MACHO,Renetta Alcocer, RN, Eliu Britton CRNA (Anesthesia Staff), Andrew Henderson, Cutting Pressman Referring MD: Crystal Zavala Medicines: Monitored Anesthesia [...] not recommended. Procedure Code(s): --- Professional --- 20598, Colonoscopy, flexible; with biopsy, singleor multiple Diagnosis Code(s): --- Professional --- D12.5, Benign neoplasm of sigmoid colon D12.3, Benign neoplasm of transverse colon (hepatic flexure or splenic flexure) K55.20, Angiodysplasia of colon withouthemorrhage R10.84, Generalized abdominal pain K57.30, Diverticulosis of large intestine without perforation or abscess without bleeding R93.3, Abnormal findings on diagnostic imaging of other parts of digestive tract CPT copyright 2020 [employer]. All rights reserved. The codes documented in this report are preliminary and upon animal nutrition teacher reviewmay be revised to meet current compliance requirements. Electronically signed by Renan Espino M.D. Renan Espino M.D. 11/13/2021 3:49:19 PM Number of Addenda: 0 Note Initiated On: 11/13/2021 2:19 PM Renan Espino MD ENDOSCOPY PROCEDURES nal Result * Hepatitis panel, acute (11/10/2021 3:29 PM CDT) Hep A IgM Nonreactive Nonreactive [place] Comment: Interpretive Data: If Hep A IgM Ab is reported as Equivocal, a new sample should be drawn in two weeks for testing. Current interpretive data was last revised on 19. Hep B core IgM Nonreactive Nonreactive [place] Comment: Interpretive Data If HepB Core IgM [...] Renan Espino MD LAB MICROBIOLOGY - GENE [facility] ORDERABLES Final Result [facility] [address] Department of Laboratories [place], [place] [id number] from Last 3 Months or Most Recently Relevant to Health Maintenance Insurance IDPA [employer]ET[employer] [facility] MEDICARE IDPA [facility] MEDICARE ADVANTAGE Advance Directives For more information, please contact: [phone] Documents on File Type Date Recorded Patient Ems Manager Expl anation ADVANCE DIRECTIVE 09/23/2018 9:15 AM BONNY TAYLOR ADVANCE DIRECTIVE 09/23/2018 9:13 AM POWER OF SENIOR CONTROLS ANALYST-MEDICAL ADVANCE DIRECTIVE 09/23/2018 9:13 AM POWER OF SENIOR CONTROLS ANALYST-MEDICAL * Full Code (Latest Code Status on [...] Relationship Healthcare Agent Relationshi p Communication Maxi Carrasquillo Son Health Care Agent Care Teams Airport Traffic Controller Relationship Specialty Start Date End Date Wesley Loaiza PA [address] [place] [address] PCP - General 09/07/18 Karan Snyder MD Consulting Physician Cardiology 05/19/17 Lilia Gomes MD [address] [place] [address] Consulting Physician Cardiovascular Disease 09/08/18 Mando Acuña MD [address] [place] [address] Consulting Physician Cardiology 10/05/18 [place] [address] [place] [address] Consulting Physician Internal Medicine 07/29/19 [place] [address] [place] [address] Consulting Physician Gastroenterology 09/28/19 [place] [id number] [address] Consulting Physician Gastroenterology 11/13/21
--- OUTSIDE RECORDS SUMMARY | 2025-02-13 18:19 | XMS_ITS | Clinical Summary ---
Author Organization [facility] Address [address] [facility] [place] [address] Care Team Providers Care Splunk Architect Name Role Phone Cm Loaiza APRN-GENETICS NURSE Primary Care Provider Source Comments [facility],non-owned Affiliates and Associated Physician Practices is amultiple site organization consisting of ambulatory clinics and hospital sitesin [place], [place], [place] and [place]. This disclosure is being madepursuant to the Care Everywhere program and may not contain all information available regarding this patient. Last updated 18.[facility] [employer] Allergies Active Allergy Reactions Criticality Noted Date [...] Recorded Patient Health Questionnaire-2 Score 0 05/02/2024 [facility] of Occupat ional Health - Occupational Stress [...] in the past 12 m [facility], were you homeless or living in a intermediate (including now)? Patient declined 04/29/2024 Comments No Sex and Gender Information Value Date Recorded Sex Assigned at Not on file Legal Sex Female 6:19 AM SANDBLAST OR SHOTBLAST EQUIPMENT TENDER Gender Identity Not on file Sexual Orientation Not on file Last Filed Vital Signs Vital Sign Reading Time Taken Comments Blood Pressure 149/60 05/03/2024 7:50 AM SANDBLAST OR SHOTBLAST EQUIPMENT TENDER Pulse 76 05/03/2024 8:09 AM SANDBLAST OR SHOTBLAST EQUIPMENT TENDER Temperature 36.7 C (98.1 F) 05/03/2024 7:50 AM SANDBLAST OR SHOTBLAST EQUIPMENT TENDER Respiratory Rate 18 05/03/2024 8:09 AM SANDBLAST OR SHOTBLAST EQUIPMENT TENDER Oxygen Saturation 94% 05/03/2024 8:09 AM SANDBLAST OR SHOTBLAST EQUIPMENT TENDER Inhaled Oxygen Concentration - - Weight 47 kg (103 lb 9.6 oz) 04/28/2024 9:50 PM SANDBLAST OR SHOTBLAST EQUIPMENT TENDER Height 162.6 cm (5' 4) 04/28/2024 1:58 PM SANDBLAST OR SHOTBLAST EQUIPMENT TENDER Body Mass Index 17.78 04/28/2024 1:58 PM SANDBLAST OR SHOTBLAST EQUIPMENT TENDER Plan of Treatment Health Maintenance Due Date [...] this topic Medical Devices Implanted Type Area Motion Picture Actor Device Identifier Shelf Expiration Date Model / Serial / Lot Biotronik Iperia 7 Dr-T- 6 Implanted:06/2015 (Quantity not on file) ICD Left: Chest / [id number] / Implant Lead Rv [id number]/65cm-1 07/03/2015 Implanted:06/2015 (Quantity not on file) Implant Lead Ventricle Biotronik [id number] / [id number] / Implant [id number] /[id number] Implanted:06/2015 (Quantity not on file) Implant Lead Atrium Biotronik [id number] / [id number] / Procedures Procedure Name Priority Date/Time Associated [...] CDT Narrative Resulting Agency Comment Performed By [facility] - [facility] [address] [place] [address] us Nathanael Callejas MD LAB - CHEMISTRY ORDERABLES F inal Result Performing Organization Address City/State/[facility] Co de Phone Number [facility] [address] [place] [address] from Last 3 Months or Most Recently [...] 11:58 AM 09/29/2020 5:54 PM Care Teams Splunk Architect Relationship Specialty Start Date End Date Cm Loaiza, ERNIE-GENETICS NURSE [address] [place] [address] PCP - General Nurse Practitioner 02/09/21
--- OUTSIDE RECORDS SUMMARY | 2025-02-13 18:19 | XMS_ITS ---
Author Organization [facility] [address] Address [address] [place] [address] Care Team Providers Care Inverform Machine Operator Name Role Phone Karan Snyder MD Unavailable [phone] Wesley Loaiza Primary Care Provider + Lilia Gomes MD Unavailable Mando Acuña MD Unavailable [phone] Larry Gregory MD Unavailable [phone] Nixon Casey MD Unavailable Renan Espino MD Unavailable [phone] Active Problems Problem Noted Date Diagnosed Date Chest pain, unspecified type 11/29/2023 Intraparenchymal hemorrhage of brain 11/23/2023 Left-sided chest pain 11/11/2023 Small bowel obstruction 02/03/2023 Hypokalemia 11/12/2021 Abdominal pain 11/09/2021 Thoracic back pain 01/10/2021 Toxic metabolic encephalopathy 07/13/2020 COPD (chronic obstructive pulmonary disease) (CM S/HCC) 07/11/2020 Assessment & Plan (07/11/2020 7:26 PM CRAP GAME BOX PERSON): Not in exacerbation. Prn duo-nebs. HCAP (healthcare-associated pneumonia) 0 MARIELA (acute kidney injury) ([facility]) 12/01/2019 Hepatitis 12/01/2019 Multiple skin nodules 12/01/2019 Chest pain 11/30/2019 Overview (12/01/2019): Added automatically from request for surgery [id number] Assessment & Plan (07/11/2020 7:20 PM CRAP GAME BOX PERSON): Suspect fibromyalgia related but need to r/o acs. Troponin levels of 12, 10, continue serial readings. EKG A-paced 71. Pacer interrogated today w/o any events recorded. Cardiology has been consulted for which we appreciate their evaluation and recommendations. Telemetry monitoring. Prn dilaudid. Resumed ranexa, naproxen and asa. Esophageal dysphagia 09/26/2019 Overview (09/27/2019): Added automatically from request for surgery [id number] Severe malnutrition ([facility]) 07/19/2019 Acute CVA (cerebrovascular accident) 07/17/2019 Assessment & Plan (07/17/2019 2:49 PM CRAP GAME BOX PERSON): S/p TPA. CT and CTA as noted [...] evaluation and recommendations. Telemetry monitoring. History of PA (myocardial infarction) 10/02/2018 Chronic CHF ([facility]) 10/02/2018 Assessment & Plan (07/11/2020 7:25 PM CRAP GAME BOX PERSON): Appears compensated. Last echo from 07/2019 with diastolic dysfunction Grade 1, EF 70%. Home medications listed above. Cardiology following. Assessment & Plan (09/26/2019 6:32 PM CDT): S/p AICD placement 2016. Echo 07/2019 with impaired diastolic dysfunction Grade 1 with EF 70%. On ASA, statin, coreg, zetia and prn nitro. Assessment & Plan (07/17/2019 2:50 PM CRAP GAME BOX PERSON): Echo from 08/2018 with diastolic dysfunction Grade 1, EF 55%. AICD (automatic cardioverter/defibrillator) pres ent 10/02/2018 CKD (chronic kidney disease) 10/02/2018 Hypertension 10/02/2018 Hyperlipidemia 10/02/2018 Depression 10/02/2018 History of CVA (cerebrovascular accident) 2018 Assessment & Plan (07/17/2019 2:52 PM CRAP GAME BOX PERSON): With residual left sided weakness prior to acute cva today. Migraines 10/02/2018 Assessment & Plan (09/26/2019 6:33 PM CDT): Topamax. Assessment & Plan (07/17/2019 2:52 PM CRAP GAME BOX PERSON): On Topamax and Imitrex. Leukocytosis 10/02/2018 Gastrointestinal hemorrhage 10/02/2018 Overview (10/03/2018): Added automatically from request for surgery Depression 09/25/2018 Assessment & Plan (07/11/2020 7:24 PM CRAP GAME BOX PERSON): Remeron and Cymbalta. Musculoskeletal chest pain 09/22/2018 Moderate protein-calorie malnutrition 09/09/2018 AICD (automatic cardioverter/defibrillator) pres ent 09/08/2018 Overview (04/21/2019): Biotronik ICD has followed with [facility] History of atrial fibrillation 09/08/2018 Assessment & Plan (07/11/2020 7:23 PM CRAP GAME BOX PERSON): S/p AICD placement. EKG a-paced. On Xarelto, coreg and asa. Telemetry monitoring. SLE (systemic lupus erythema tosus related syndrome) ([facility]) 09/08/2018 Assessment & Plan (07/11/2020 7:24 PM CRAP GAME BOX PERSON): Prednisone and Naproxen. Assessment & Plan (09/26/2019 6:32 PM CDT): Prn analgesics. Assessment & Plan (07/17/2019 2:58 PM CRAP GAME BOX PERSON): Not in exacerbation. Prn analgesics. History of ventricular tachycardia 09/08/2018 Coronary arteriosclerosis in [place] artery 10/15 Overview (09/06/2016): Coronary artery disease of [place] artery of [place] heart with stable angina pectoris Assessment & Plan (07/11/2020 7:22 PM CRAP GAME BOX PERSON): S/p stenting to RCA, LAD and OM. On ASA, zetia and atorvastatin. Assessment & Plan (09/26/2019 6:28 PM CDT): S/p KEITH to LAD 2011. On ASA and Brilinta. Assessment & Plan (07/17/2019 2:58 PM CRAP GAME BOX PERSON): S/p stenting to LAD 2011. Normally on Brilinta and asa. S/p AICD placement. Presence of stent in coronary artery 10/16/2015 Overview (09/06/2016): History of coronary artery stent placement Fatigue 10/16/2015 Overview (09/06/2016): Fatigue, unspecified type NSTEMI (non-ST elevated myocardial infarction) 0 10/16/2015 Overview (09/06/2016): Old PA (myocardial infarction) Angina pectoris 10/16/2015 Overview (09/06/2016): Angina pectoris Hypertension 10/16/2015 Overview (09/06/2016): Resistant hypertension Assessment & Plan (07/11/2020 7:23 PM CRAP GAME BOX PERSON): Controled on Aldactone, Nifedipine, Hyzaar, clonidine and coreg. Monitor. Assessment & Plan (09/26/2019 6:28 PM CDT): Stable. On Coreg. Assessment & Plan (07/17/2019 2:50 PM CRAP GAME BOX PERSON): Stable. On five anti-hypertensive's. Will hold d/t hypotension and acute stroke. Monitor closely. Ventricular premature beats 10/16/2015 Overview (09/06/2016): PVCs (premature ventricular contractions) History of stroke 10/16/2015 Overview (09/06/2016): History of stroke Hypercholesterolemia 10/16/2015 Overview (09/06/2016): Hypercholesterolemia Assessment & Plan (09/26/2019 6:29 PM CDT): On statin and zetia. Assessment & Plan (07/17/2019 2:52 PM CRAP GAME BOX PERSON): Zetia. Former smoker 10/16/2015 Overview (09/06/2016): Former smoker Assessment & Plan (07/11/2020 7:26 PM CRAP GAME BOX PERSON): Reports quit 4 years ago. Assessment & Plan (07/17/2019 2:54 PM CRAP GAME BOX PERSON): Quit four years ago. Urinary tract infection 05/16/2015 Hydronephrosis 03/23/2015 Lupus erythematosus 02/28/2015 Malignant neoplasm of urinary bladder 02/28/2015 Fibromyalgia Assessment & Plan (07/11/2020 7:22 PM CRAP GAME BOX PERSON): Gabapentin and prn analgesics. Monitor. Assessment & Plan (07/17/2019 2:59 PM CRAP GAME BOX PERSON): Lyrica. Prn analgesics. Chronic pain syndrome Vasovagal [...]
--- OUTSIDE RECORDS SUMMARY | 2025-02-13 18:20 | XMS_ITS | Encounter Summary ---
Author Organization [facility] Address [address] [place] [address] Care Team Providers Care Pediatric Dentist Name Role Phone Thierry Chadwick DO Primary Care Provider [phone] Karan Snyder MD Unavailable [phone] Wesley Loaiza Primary Care Provider + Lilia Gomes MD Unavailable Mando Acuña MD Unavailable [phone] Ruben San [employer] Unavailable Maico Ellison CHIEF CLERK Unavailable Dorian Del Rio DNP Unavailable [phone] Larry Gregory MD Unavailable [phone] Nixon Casey MD Unavailable Renan Espino MD Unavailable [phone] Encounter Details Date Type Department Care Team (Late st Contact Info) Description 05/20/2017 Documentation [place] [id number] [place], [place] [id number] Kaylah Guerra Social History Tobacco Use Types Packs/Day Years Used Date Smoking Tobacco: Former Smokeless Tobacco: Never Alcohol Use Standard Drinks/Week Comments Not Asked 0 (1 standard drink = 0.6 oz pur e alcohol) Comments No Sex and Gender Information Value Date Recorded Sex Assigned at Not on file Legal Sex 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 04/15/2022 05/17/2022 07/14/2022 3:[address] COVID: Suspected 05/17/2022 05/17/2022 05/17/2022 5:25 PM SOW FARM TECHNICIAN COVID: Suspected 02/03/2023 02/03/2023 02/03/2023 12:10 PM CDT COVID: Suspected 02/28/2024 02/28/2024 02/28/2024 6:24 PM CDT documented as of this encounter Care Teams Pediatric Dentist Relationship Specialty Start Date End Date Thierry Chadwick DO PCP - General 04/20/13 09/06/18 Wesley Loaiza PA [address] [place] [address] PCP - General 09/07/18 Karan Snyder MD Consulting Physician Cardiology 05/19/17 Lilia Gomes MD [address] [place] [address] Consulting Physician Cardiovascular Disease 09/08/18 Mando Acuña MD [address] [place] [address] Consulting Physician Cardiology 10/05/18 Ruben San, [employer]IVER [address] [facility] [address] [place] [address] [facility] Outpatient Hand Rounder 10/07/18 03/13/20 Maico Ellison, CHIEF CLERK [address] [facility] [address] [place] [address] [facility] Outpatient Hand Rounder 10/07/18 03/13/20 Dorian Del Rio DNP [id number] [facility] [address] [place] [address] Nurse Practitioner Internal Medicine 10/07/18 03/13/20 [place] [address] [facility] [address] [place] [id number] Consulting Physician Internal Medicine 07/29/19 [place] [address] [facility] [address] [place] [address] Consulting Physician Gastroenterology 09/28/19 [place] [id number] [address] Consulting Physician Gastroenterology 11/13/21 documented as of this encounter
[2025-02-13] MEDS: BELLADONNA ALK/PHENOB ELIX 10 ML, MAG HYDROX/ALUMINUM HYD/SIMETH 30 ML, LIDOCAINE 2% VI... PO (18:34)
[2025-02-13 18:46] LABS: Iron 29 ug/dL (37-170)
[2025-02-13 18:56] LABS: Percent Iron Saturation 7 % (20-50)
[2025-02-13 19:06] LABS: Add Urine Microscopic? YES; Appearance Urine Clear (Clear); Glucose Urine UA Negative (Negative); Leukocyte Esterase Ur Negative LEU/UL (Negative); Need Manual Microscopic Reviewed; Nitrate Urine Negative (Negative); Specific Grav Ur 1.019 (1.001-1.035)
[2025-02-13 19:15] LABS: Influenza A QL RT-PCR Negative (Negative); Influenza B QL RT-PCR Negative (Negative); RSV RNA, RT-PCR Negative (Negative); SARS-CoV-2 RNA PCR Negative (Negative)
[2025-02-13 19:20] LABS: Thyroid Stimulating Hormone Reflex 0.975 uIU/mL (0.465-4.68)
[2025-02-13 19:24] LABS: Ferritin 5.23 ng/mL (11.1-264)
--- NOTE | 2025-02-13 19:25 | PC.NURSE ---
Report received from MACHO Gooden. Assumed care of patient at this time.
--- NOTE | 2025-02-13 19:33 | ED.GENADULT ---
HPI - General Adult General Chief complaint: Chest Pain Stated complaint: CP Time Seen by Provider: 02/13/25 17:54 History of Present Illness HPI narrative: Patient is a 74-year-old female who presents ER with chest pain. Central and sharp. Radiates to her left shoulder. Has had similar pain in the past. Also reports epigastric discomfort. Mild nausea. No diarrhea. Denies burning sensation going in the throat. No dark black stools. Patient found to be anemic. She reports her diet consists mainly of drinking water and milk. Occasionally she will have a TV dinner. Related Data Home Medications ?Medication ?Instructions ?Recorded ?Confirmed ?Last Taken ?Type prednisone 10 mg tablet 5 mg PO DAILY Shortness Of Breath 09/20/20 05/07/24 Unknown History Or Wheezing albuterol sulfate 90 mcg/actuation 90 mcg inhalation QID PRN 08/16/22 05/07/24 Unknown History aerosol inhaler Shortness Of Breath gabapentin 100 mg capsule 100 mg PO DAILY 08/16/22 05/07/24 03/13/24 History losartan 100 mg tablet 100 mg PO DAILY 08/16/22 05/07/24 03/13/24 History mirtazapine 15 mg tablet 15 mg PO QHS 08/16/22 05/07/24 03/13/24 History naproxen 500 mg tablet 500 mg PO Q12H 08/16/22 05/07/24 03/13/24 History nitroglycerin 0.4 mg sublingual 0.4 mg sublingual BID PRN Chest 08/16/22 05/07/24 Unknown History tablet Pain sumatriptan succinate 100 mg tablet 100 mg PO BID PRN Headache 08/16/22 05/07/24 Unknown History aspirin 81 mg tablet,delayed 81 mg PO DAILY 11/25/22 05/07/24 03/13/24 History release nortriptyline 10 mg capsule 10 mg PO HS 08/23/23 05/07/24 03/12/24 History tizanidine 4 mg tablet 4 mg PO QID PRN Back Pain 08/23/23 05/07/24 03/13/24 History trazodone 100 mg tablet 100 mg PO HS 08/23/23 05/07/24 03/13/24 History apixaban 2.5 mg tablet (Eliquis) 2.5 mg PO BID 10/05/07/24 03/13/24 History oxycodone-acetaminophen 7.5 mg-325 1 tablet PO BID PRN Pain 03/14/24 05/07/24 Unknown History mg tablet Allergies Allergy/AdvReac Type Severity Reaction Status Date / Time Penicillins Allergy Severe Swelling Verified 05/07/24 13:41 of Lip/Tongue/Throat Sulfa (Sulfonamide Allergy Unknown Unknown Verified 05/07/24 13:41 Antibiotics) amphetamine (From Adderall) Allergy Unknown Verified 05/07/24 19:04 dextroamphetamine (From Allergy Unknown Verified 05/07/24 19:04 Adderall) lorazepam (From Ativan) Allergy Agitated Verified 05/07/24 14:00 Review of Systems Review of Systems: All systems reviewed & are unremarkable except as noted in HPI and below Constitutional: Constitutional: Reports no additional constitutional complaints Cardiovascular: Cardiovascular: Reports no additional cardiovascular complaints Respiratory: Respiratory: Reports no additional respiratory complaints Gastrointestinal: Gastrointestinal: Reports no additional gastrointestinal complaints Musculoskeletal: Musculoskeletal: Reports no additional musculoskeletal complaints PMFSH Past Medical History Medical History Malingering Hyperlipidemia Hypertension GI bleed Gastroesophageal reflux disease Cerebrovascular accident Per patient reports, she had 2 or 3 strokes, the last being in April 2019 although not well documented. Chronic obstructive pulmonary disease Coronary artery disease Cerebral atherosclerosis COVID-19 Lupus Patient states she has lupus, not well documented. Fibromyalgia Questionable history of fibromyalgia Anxiety Depression Systemic lupus erythematosus Hyperpituitarism Left foot drop Osteoporosis Bladder cancer Arthritis Renal cancer Gastric ulcer Bronchitis Myocardial infarction Peripheral neuropathy Meningitis Surgical History Surgical History History of resection of small bowel (06/20/22) Small-bowel resection with repair of incarcerated right inguinal hernia. History of bilateral breast reduction surgery History of cardiac defibrillator placement Reportedly for ventricular tachycardia. History of heart artery stent History of hysterectomy History of cholecystectomy History of tonsillectomy History of cardiac catheterization Family History Family History Father Hypertension Mother Hypertension Family history of cardiovascular disease Social History Social History Social History: Surrogate medical decision maker: Maxi Carrasquillo, son. Code status: Do not resuscitate. Smoking packs per day: 0.25 Smoking cigarettes per day: 5.0 Years smoked: 55 Smoking pack-years: 13.75 Smoking status: Light tobacco smoker Tobacco type: cigarettes Second hand tobacco smoke exposure: No Alcohol intake: never Substance use: never Substance use type: does not use Do You Feel Safe in your Home?: Yes Lack of Transportation: No Lack of Food: Never True Current Housing: I Have Housing Concerned About Future Housing: No Difficulty Paying Gas/Electric Bills: No Difficulty Paying for Meds: No Currently Unemployed: No Education: Associate Degree Difficulty w/ Childcare or Family Care: No Additional living arrangements comments: with three children. Lives in [place]. 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 Spiritual care concerns: No Agree to blood products: Yes Exam Narrative: GENERAL: Well-appearing, well-nourished, and in no acute distress. HEAD: Normocephalic, atraumatic. ENT: Mucous membranes moist. NECK: Supple. CHEST: Clear to auscultation. No respiratory distress. HEART: Regular rate and rhythm. Normal peripheral pulses. ABDOMEN: Soft, nontender, nondistended. 1 of 2 panels was faintly positive for occult blood on digital rectal exam. EXTREMITIES: Normal range of motion. No edema. SKIN: Warm, dry, no rash. NEURO: Alert and oriented x3. PSYCH: Normal mood and affect. Course Course Emergency Course: Suspect to be in nutritional anemia and not hemorrhagic. Admit for observation and trend troponins. Blood will be transfused. Accepted by hospitalist. Vital Signs Vital signs: Vital Signs Temperature 99.7 F H 02/13/25 16:43 Pulse Rate 84 02/13/25 16:43 Respiratory Rate 18 02/13/25 16:43 Blood Pressure 109/55 L 02/13/25 16:43 Pulse Oximetry 96 02/13/25 16:43 Oxygen Delivery Room Air 02/13/25 16:43 Temperature 99.7 F H 02/13/25 16:43 Pulse Rate 82 02/13/25 18:43 Respiratory Rate 19 02/13/25 18:43 Blood Pressure 116/54 L 02/13/25 18:43 Pulse Oximetry 99 02/13/25 18:58 Oxygen Delivery Room Air 02/13/25 18:58 Medical Decision Making Vital Signs Vital Signs: Vital Signs Temperature 99.7 F H 02/13/25 16:43 Pulse Rate 84 02/13/25 16:43 Respiratory Rate 18 02/13/25 16:43 Blood Pressure 109/55 L 02/13/25 16:43 Pulse Oximetry 96 02/13/25 16:43 Oxygen Delivery Room Air 02/13/25 16:43 Temperature 99.7 F H 02/13/25 16:43 Pulse Rate 82 02/13/25 18:43 Respiratory Rate 19 02/13/25 18:43 Blood Pressure 116/54 L 02/13/25 18:43 Pulse Oximetry 99 02/13/25 18:58 Oxygen Delivery Room Air 02/13/25 18:58 Lab Data 02/13/25 17:00 02/13/25 17:00 Labs: Lab Results 02/13/25 02/13/25 02/13/25 Range/Units 16:59 17:00 18:33 WBC 9.5 (4.5-10.0) K/mm3 RBC 3.52 L (4.2-5.4) M/mm3 Hgb 6.8 L* D (12.0-15.0) g/dL Hct 25.3 L (37.0-47.0) % MCV 71.9 L (80-100) fl MCH 19.3 L (26-34) pg MCHC 26.9 L (32-36) g/dl RDW 20.5 H (11.5-14.5) % Plt Count 225 (150-375) k/mm3 MPV 9.2 (7.4-10.4) fl Immature Gran % (Auto) 0.3 (0-0.5) % Neut % (Auto) 75.0 H (45.5-73.1) % Lymph % (Auto) 7.3 L (18.3-44.2) % Tillman % (Auto) 8.8 H (2.6-8.5) % Eos % (Auto) 8.4 H (0-4.4) % Baso % (Auto) 0.2 (0.2-1.2) % Lymph # (Auto) 0.69 L (0.9-3.2) K/mm3 Tillman # (Auto) 0.8 H (0.1-0.6) K/mm3 Eos # (Auto) 0.8 H (0-0.3) K/mm3 Baso # (Auto) 0.0 (0.0-0.1) K/mm3 Abs Immat Gran (auto) 0.03 (0.00-0.031) K/mm3 Absolute Neuts (auto) 7.1 H (1.3-6.7) K/mm3 Absolute Nucleated RBC 0.000 (0.0-0.012) K/mm3 Band Neutrophils % Not Reportable Nucleated RBC % 0.0 (0.0-0.2) % Platelet Estimate Adequate (Adequate) Polychromasia Occasional Hypochromasia 2+ Microcytosis 2+ (NORMAL) Ovalocytes 1+ Schistocytes Rare PT 13.3 (11.1-14.7) Seconds INR 1.0 APTT 25.8 (22.3-36.8) Seconds Sodium 135 L (137-145) mmol/L Potassium 4.5 (3.4-5.0) mmol/L Chloride 105 (98-107) mmol/L Carbon Dioxide 24 (22-30) mmol/L Anion Gap 6 (4-12) mmol/L BUN 24 H (7-17) mg/dL Creatinine 1.50 H (0.7-1.0) mg/dL Estim Creat Clear Calc Not Reportable Estimated GFR 34 L (59 - ) Glucose 94 (65-110) mg/dL Calcium 8.1 L (8.4-10.2) mg/dL Iron 29 L (37-170) ug/dL TIBC 435 (261-462) ug/dL % Saturation 7 L (20-50) % Ferritin 5.23 L (11.1-264) ng/mL Total Bilirubin 0.1 L (0.2-1.3) mg/dL AST 31 (14-36) U/L ALT 12 (6-35) U/L Alkaline Phosphatase 87 (38-126) U/L Troponin I < 0.012 (0.000-0.034) ng/mL Total Protein 6.4 (6.3-8.2) g/dL Albumin 3.3 L (3.5-5.1) g/dL Lipase 337 H (23-300) U/L Vitamin B12 Pending Folate Pending TSH (Reflex) 0.975 (0.465-4.68) uIU/mL Urine Color (Yellow) Urine Appearance (Clear) Urine pH (5.0-9.0) Ur Specific [place] (1.001-1.035) Urine Protein (Negative) mg/dL Urine Glucose (UA) (Negative) mg/dL Urine Ketones (Negative) mg/dL Ur Blood (Man) (Negative) Urine Nitrate (Negative) Urine Bilirubin (Negative) Urine Urobilinogen (<2.0) mg/dL Add Ur Microanalysis Leukocyte Esterase Rfl (Negative) MAI/UL Urine RBC (0-2) /hpf Urine WBC (0-3) /hpf Ur Squamous Epith Cells (Few) /hpf Urine Bacteria /hpf Urine Casts Influenza A (RT-PCR) Negative (Negative) Influenza B (RT-PCR) Negative (Negative) RSV (RT-PCR) Negative (Negative) SARS-CoV-2 RNA (RT-PCR) Negative (Negative) Blood Type O Negative Antibody Screen Positive Antibody Identification Pending Antigen Identification Pending AMY, IgG Interpret Pending AMY, Poly Interpret Pending AMY, Complement Interp Pending Crossmatch See Detail 02/13/25 Range/Units 18:49 WBC (4.5-10.0) K/mm3 RBC (4.2-5.4) M/mm3 Hgb (12.0-15.0) g/dL Hct (37.0-47.0) % MCV (80-100) fl MCH (26-34) pg MCHC (32-36) g/dl RDW (11.5-14.5) % Plt Count (150-375) k/mm3 MPV (7.4-10.4) fl Immature Gran % (Auto) (0-0.5) % Neut % (Auto) (45.5-73.1) % Lymph % (Auto) (18.3-44.2) % Tillman % (Auto) (2.6-8.5) % Eos % (Auto) (0-4.4) % Baso % (Auto) (0.2-1.2) % Lymph # (Auto) (0.9-3.2) K/mm3 [place] # (Auto) (0.1-0.6) K/mm3 Eos # (Auto) (0-0.3) K/mm3 Baso # (Auto) (0.0-0.1) K/mm3 Abs Immat Gran (auto) (0.00-0.031) K/mm3 Absolute Neuts (auto) (1.3-6.7) K/mm3 Absolute Nucleated RBC (0.0-0.012) K/mm3 Band Neutrophils % Nucleated RBC % (0.0-0.2) % Platelet Estimate (Adequate) Polychromasia Hypochromasia Microcytosis (NORMAL) Ovalocytes Schistocytes PT (11.1-14.7) Seconds INR APTT (22.3-36.8) Seconds Sodium (137-145) mmol/L Potassium (3.4-5.0) mmol/L Chloride (98-107) mmol/L Carbon Dioxide (22-30) mmol/L Anion Gap (4-12) mmol/L BUN (7-17) mg/dL Creatinine (0.7-1.0) mg/dL Estim Creat Clear Calc Estimated GFR (59 - ) Glucose (65-110) mg/dL Calcium (8.4-10.2) mg/dL Iron (37-170) ug/dL TIBC (261-462) ug/dL % Saturation (20-50) % Ferritin (11.1-264) ng/mL Total Bilirubin (0.2-1.3) mg/dL AST (14-36) U/L ALT (6-35) U/L Alkaline Phosphatase (38-126) U/L Troponin I (0.000-0.034) ng/mL Total Protein (6.3-8.2) g/dL Albumin (3.5-5.1) g/dL Lipase (23-300) U/L Vitamin B12 Folate TSH (Reflex) (0.465-4.68) uIU/mL Urine Color Yellow (Yellow) Urine Appearance Clear (Clear) Urine pH 5.0 (5.0-9.0) Ur Specific [place] 1.019 (1.001-1.035) Urine Protein Trace (Negative) mg/dL Urine Glucose (UA) Negative (Negative) mg/dL Urine Ketones Negative (Negative) mg/dL Ur Blood (Man) Negative (Negative) Urine Nitrate Negative (Negative) Urine Bilirubin Negative (Negative) Urine Urobilinogen 0.2 (<2.0) mg/dL Add Ur Microanalysis Reviewed Leukocyte Esterase Rfl Negative (Negative) MAI/UL Urine RBC 0-2 (0-2) /hpf Urine WBC 0-5 (0-3) /hpf Ur Squamous Epith Cells None seen (Few) /hpf Urine Bacteria None seen /hpf Urine Casts 11-20 Influenza A (RT-PCR) (Negative) Influenza B (RT-PCR) (Negative) RSV (RT-PCR) (Negative) SARS-CoV-2 RNA (RT-PCR) (Negative) Blood Type Antibody Screen Antibody Identification Antigen Identification AMY, IgG Interpret MAY, Poly Interpret AMY, Complement Interp Crossmatch Imaging Data Radiologist's impression: ITS Impressions Chest X-Ray 02/13/25 17:18 Impression: No acute cardiopulmonary abnormality. ECG Data EKG #1: ECG completion date: 02/13/25 ECG completion time: 16:50 EKG Interpretation: junctional, no ST changes, normal QRS and normal QT Critical Care Time Critical Care Time Critical Care Time: Yes Total Critical Care Time: 35 Discharge Plan Discharge Clinical Impression: Anemia, Chest pain Patient Disposition: Still a Patient Condition: Stable Patient Language: Icelandic Prescriptions: No Action sumatriptan succinate 100 mg tablet 100 mg PO BID PRN (Reason: Headache) nitroglycerin 0.4 mg tablet, sublingual 0.4 mg sublingual BID PRN (Reason: Chest Pain) mirtazapine 15 mg tablet 15 mg PO QHS gabapentin 100 mg capsule 100 mg PO DAILY albuterol sulfate 90 mcg/actuation HFA aerosol inhaler 90 mcg inhalation QID PRN (Reason: Shortness Of Breath) losartan 100 mg tablet 100 mg PO DAILY naproxen 500 mg tablet 500 mg PO Q12H azithromycin [Zithromax] 250 mg tablet 250 mg PO DAILY 5 Days Qty: 5 0RF prednisone 20 mg tablet 20 mg PO BID 3 Days Qty: 6 0RF prednisone 10 mg tablet 5 mg PO DAILY Rx Instructions: 1/2 Tab every day aspirin 81 mg Tablet,Delayed Release (Dr/Ec) 81 mg PO DAILY tizanidine 4 mg tablet 4 mg PO QID PRN (Reason: Back Pain) nortriptyline 10 mg capsule 10 mg PO HS trazodone 100 mg tablet 100 mg PO HS Eliquis 2.5 mg tablet 2.5 mg PO BID oxycodone-acetaminophen 7.5-325 mg tablet 1 tablet PO BID PRN (Reason: Pain) pantoprazole 40 mg Tablet,Delayed Release (Dr/Ec) 40 mg PO QAM Qty: 15 0RF ondansetron 4 mg tablet,disintegrating 4 mg PO Q8H PRN (Reason: nausea and vomiting) Qty: 14 0RF Follow-up/Referrals: Josse,VALENTIN Roberts [Primary Care Provider, Family Practice] Quality HEART score for chest pain patients History: slightly suspicious ECG: non specific repolarization disturbance/LBTB/PM Age: > or = to 65 years Risk factors: > or = to 3 risk factors of atherosclerotic disease Troponin: < or = to 1x normal limit Heart score: 5
--- NOTE | 2025-02-13 19:34 | ECG_ITS ---
Test Date: 2025-02-13 19:44:27 Measurements Intervals [place] Rate: 82 P: 0 W[place]: 0 QRS: 71 QRSD: 94 T: 70 QT: 389 QTc: 455 Interpretive Statements NORMAL SINUS RHYTHM WAS PREMATURE ATRIAL CONTRACTIONS AND PREMATURE VENTRICULAR CONTRACTIONS MODERATE VOLTAGE CRITERIA FOR LVH, CONSIDER NORMAL VARIANT [MEETS CRITERIA IN ONE OF: R(aVL), S(V1), R(V5), R(V5/V6)+S(V1)] POSSIBLE ANTERIOR MYOCARDIAL INFARCTION , OF INDETERMINATE AGE [30 ms Q WAVE IN V3/V4, OR R < 0.2 mV IN V4] ABNORMAL ECG Electronically Signed On 02-14-2025 07:50:33 CDT by Marty Carmona M.D.
[2025-02-13 19:50] LABS: Vitamin B12 302.0 pg/mL (239-931)
--- NOTE | 2025-02-13 20:05 | PC.NURSE ---
Patient grabbing her clothes out of double bags and placing them on stretcher next to her. patient instructed that the clothes were double bagged for precaution d/t bugs. Patient verbalized understanding but continues to handle contaminated clothes. Patient given water upon request.
--- NOTE | 2025-02-13 20:09 | PM.IMHP ---
H&P: HPI History of Present Illness Date/Time: 02/13/25 20:09 Chief Complaint: Chest pain Narrative: 74-year-old female with a past medical history of coronary artery disease with prior cardiac stent, ICD placement, hypertension, CVA, COPD, GERD, chronic kidney disease and malingering who presented to the ER with reports of chest pain. The patient is historically noncompliant with medical management is not taking any of her prior prescribed medications because she does not believ there needed. She initially stated to the ER that she had been evaluated at [facility] for chest pain the day prior at the time of my evaluation she stated that she had been evaluated at this hospital day prior and then change her story to the fact that she was had been at [place]. She is overall a poor historian. She repeatedly states that she has squeezing chest pain but on further questioning she admits that is is worse when she tries to take a breath. It is associated with increased cough and is been going on for 2 days. Her cough is nonproductive. She had noticed that she has been wheezing more. She has continued to smoke. She is noted to have multiple bite smith an extensive rash on the dorsum of the left arm with excoriation. The patient was found to have bed bugs in her belongings while she was in the ER. She states that she did not know that she had bed bugs. She reports a rash on her dorsum of her left arm is been there for several weeks the skin is thickened and appears similar to elevate skin. She reports that it does not bother her that much. She reports that her chest pain and pain that radiates up into her left shoulder is reproducible with palpation. She denies any hematochezia or melena. In the ER he rectal exam was performed and the Hemoccult was weakly positive. Patient does have chronic protein malnutrition and has chronic dietary deficiencies in iron. She reports that she still smokes ?a little bit?. On exam the patient has significant tobacco staining to her hands and smells of cigarette smoke. Review of Systems Review of Systems: 12 systems were reviewed with pertinent positives and negatives per HPI. Except as documented in the HPI, all other systems were reviewed and are negative. [facility] Past Medical History Medical History Bladder neoplasm of uncertain malignant potential CKD (chronic kidney disease) stage 3, GFR 30-59 ml/min Carotid stenosis Malingering Hyperlipidemia Hypertension GI bleed Gastroesophageal reflux disease Cerebrovascular accident Per patient reports, she had 2 or 3 strokes, the last being in April 2019 although not well documented. Chronic obstructive pulmonary disease Coronary artery disease Cerebral atherosclerosis Lupus Patient states she has lupus, not well documented. Fibromyalgia Questionable history of fibromyalgia Anxiety Depression Systemic lupus erythematosus Hyperpituitarism Left foot drop Osteoporosis Bladder cancer Arthritis Renal cancer Gastric ulcer Bronchitis Myocardial infarction Peripheral neuropathy Meningitis Surgical History Surgical History History of incision and drainage (06/2022) Right groin abscess. Right groin abscess had been due to perforation of bowel into the incarcerated hernia earlier in the same hospitalization History of resection of small bowel (06/20/22) Small-bowel resection with repair of incarcerated right inguinal hernia. History of bilateral breast reduction surgery History of cardiac defibrillator placement Reportedly for ventricular tachycardia. History of heart artery stent History of hysterectomy History of cholecystectomy History of tonsillectomy History of cardiac catheterization Family History Family History Father Hypertension Mother Hypertension Family history of cardiovascular disease Social History Social History Social History: Surrogate medical decision maker: Maxi Carrasquillo, lexa. Code status: DNR/DNI (per patient request) Smoking packs per day: 1 Smoking cigarettes per day: 20.0 Years smoked: 45 Smoking pack-years: 45.00 Smoking status: Current every day smoker Tobacco type: cigarettes Second hand tobacco smoke exposure: Yes Alcohol intake: former Substance use: never Substance use type: does not use Do You Feel Safe in your Home?: Yes Lack of Transportation: No Lack of Food: Never True Current Housing: I Have Housing Concerned About Future Housing: No Difficulty Paying Gas/Electric Bills: No Difficulty Paying for Meds: No Currently Unemployed: No Education: Associate Degree Difficulty w/ Childcare or Family Care: No Additional living arrangements comments: with three children. Lives in [place]. Two of her sons live with her. 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 Spiritual care concerns: No Agree to blood products: Yes Meds Home Medications and Allergies Home Medications ?Medication ?Instructions ?Recorded ?Confirmed ?Type prednisone 10 mg tablet 5 mg PO DAILY Shortness Of Breath 09/20/20 02/14/25 History Or Wheezing albuterol sulfate 90 mcg/actuation 90 mcg inhalation QID PRN 08/16/22 02/14/25 History aerosol inhaler Shortness Of Breath gabapentin 100 mg capsule 100 mg PO DAILY 08/16/22 02/14/25 History losartan 100 mg tablet 100 mg PO DAILY 08/16/22 02/14/25 History mirtazapine 15 mg tablet 15 mg PO QHS 08/16/22 02/14/25 History naproxen 500 mg tablet 500 mg PO Q12H 08/16/22 02/14/25 History nitroglycerin 0.4 mg sublingual 0.4 mg sublingual BID PRN Chest 08/16/22 02/14/25 History tablet Pain sumatriptan succinate 100 mg tablet 100 mg PO BID PRN Headache 08/16/22 02/14/25 History aspirin 81 mg tablet,delayed 81 mg PO DAILY 11/25/22 02/14/25 History release nortriptyline 10 mg capsule 10 mg PO HS 08/23/23 02/14/25 History tizanidine 4 mg tablet 4 mg PO QID PRN Back Pain 08/23/23 02/14/25 History trazodone 100 mg tablet 100 mg PO HS 08/23/23 02/14/25 History apixaban 2.5 mg tablet (Eliquis) 2.5 mg PO BID 03/14/24 02/14/25 History oxycodone-acetaminophen 7.5 mg-325 1 tablet PO BID PRN Pain 03/14/24 02/14/25 History mg tablet pantoprazole 40 mg tablet,delayed 40 mg PO QAM #15 tabs 03/15/24 02/14/25 Rx release azithromycin 250 mg tablet 250 mg PO DAILY 5 days #5 tabs 05/08/24 02/14/25 Rx (Zithromax) prednisone 20 mg tablet 20 mg PO BID 3 days #6 tabs 05/08/24 02/14/25 Rx ondansetron 4 mg disintegrating 4 mg PO Q8H PRN nausea and 05/24/24 02/14/25 Rx tablet vomiting #14 tabs Allergies Allergy/AdvReac Type Severity Reaction Status Date / Time Penicillins Allergy Severe Swelling Verified 05/07/24 13:41 of Lip/Tongue/Throat Sulfa (Sulfonamide Allergy Unknown Unknown Verified 05/07/24 13:41 Antibiotics) amphetamine (From Adderall) Allergy Unknown Verified 05/07/24 19:04 dextroamphetamine (From Allergy Unknown Verified 05/07/24 19:04 Adderall) lorazepam (From Ativan) Allergy Agitated Verified 05/07/24 14:00 Vital Signs Vital Signs - 24 hr 02/13/25 16:43 02/13/25 17:32 02/13/25 18:03 Temperature 99.7 F H Pulse Rate 84 83 77 Respiratory Rate 18 16 Blood Pressure 109/55 L 121/60 Pulse Oximetry 96 98 Oxygen Delivery Room Air 02/13/25 18:43 02/13/25 18:58 Temperature Pulse Rate 82 Respiratory Rate 19 Blood Pressure 116/54 L Pulse Oximetry 100 99 Oxygen Delivery Room Air Exam Narrative: 42.4 kg BMI 15.6 Const: Other: Disheveled, appears older than stated age, well-nourished HENMT: Other: Head is normocephalic atraumatic, positive conjunctival pallor, no scleral icterus, mucous membranes are dry, no oral pharyngeal erythema Neck: Other: No JVD, no lymphadenopathy Resp: Other: Diffuse wheezing bilateral lung black, no increased work breathing, frequent cough Cardio: Other: Regular rate, regular rhythm, 2+ bilateral radial pulses GI: Other: Soft, nontender, nondistended, positive bowel sounds : Other: Incontinent of urine Skin: Other: Generalized pallor with multiple bug bites with associated excoriation from scratching, thickened white silver elephant type skin over the dorsum of bilateral forearms arms left greater than right, but bites over the legs abdomen and arms with the majority of the lesions on the arms and legs, marked tobacco staining to nailbeds bilateral hand Neuro: Other: Patient is conversational, no localizing neurologic deficits follows commands but is easily distracted, patient states that she would not know who the president is because she does not care she has no reason to keep track of the month or year, she knows that she is at [facility], she has no localizing neurologic deficits noted during the course of conversation Extrem: Other: Skin changes as discussed above, no cyanosis, positive clubbing, marked tobacco staining to nailbeds Psych: Attitude: Avoids eye contact (attititude/behavior) Other: Restless, odd affect, perseverating on need for pain medication H&P: Results Labs Labs: Laboratory Tests 02/13/25 17:00 02/13/25 17:00 02/13/25 02/13/25 02/13/25 16:59 17:00 18:33 WBC 9.5 RBC 3.52 L Hgb 6.8 L* D Hct 25.3 L MCV 71.9 L MCH 19.3 L MCHC 26.9 L RDW 20.5 H Plt Count 225 MPV 9.2 Immature Gran % (Auto) 0.3 Neut % (Auto) 75.0 H Lymph % (Auto) 7.3 L Gooding % (Auto) 8.8 H Eos % (Auto) 8.4 H Baso % (Auto) 0.2 Lymph # (Auto) 0.69 L Gooding # (Auto) 0.8 H Eos # (Auto) 0.8 H Baso # (Auto) 0.0 Abs Immat Gran (auto) 0.03 Absolute Neuts (auto) 7.1 H Absolute Nucleated RBC 0.000 Band Neutrophils % Not Reportable Nucleated RBC % 0.0 Platelet Estimate Adequate Polychromasia Occasional Hypochromasia 2+ Microcytosis 2+ Ovalocytes 1+ Schistocytes Rare PT 13.3 INR 1.0 APTT 25.8 Sodium 135 L Potassium 4.5 Chloride 105 Carbon Dioxide 24 Anion Gap 6 BUN 24 H Creatinine 1.50 H Estim Creat Clear Calc Not Reportable Estimated GFR 34 L Glucose 94 Calcium 8.1 L Iron 29 L TIBC 435 % Saturation 7 L Ferritin 5.23 L Total Bilirubin 0.1 L AST 31 ALT 12 Alkaline Phosphatase 87 Troponin I < 0.012 Total Protein 6.4 Albumin 3.3 L Lipase 337 H Vitamin B12 302.0 Folate 6.8 TSH (Reflex) 0.975 Urine Color Urine Appearance Urine pH Ur Specific Fabens Urine Protein Urine Glucose (UA) Urine Ketones Ur Blood (Man) Urine Nitrate Urine Bilirubin Urine Urobilinogen Add Ur Microanalysis Leukocyte Esterase Rfl Urine RBC Urine WBC Ur Squamous Epith Cells Urine Bacteria Urine Casts Influenza A (RT-PCR) Negative Influenza B (RT-PCR) Negative RSV (RT-PCR) Negative SARS-CoV-2 RNA (RT-PCR) Negative Blood Type O Negative Antibody Screen Positive Antibody Identification Pending Antigen Identification Pending AMY, IgG Interpret Pending AMY, Poly Interpret Pending AMY, Complement Interp Pending Crossmatch See Detail 02/13/25 02/13/25 18:49 19:45 WBC RBC Hgb Hct MCV MCH MCHC RDW Plt Count MPV Immature Gran % (Auto) Neut % (Auto) Lymph % (Auto) Gooding % (Auto) Eos % (Auto) Baso % (Auto) Lymph # (Auto) Gooding # (Auto) Eos # (Auto) Baso # (Auto) Abs Immat Gran (auto) Absolute Neuts (auto) Absolute Nucleated RBC Band Neutrophils % Nucleated RBC % Platelet Estimate Polychromasia Hypochromasia Microcytosis Ovalocytes Schistocytes PT INR APTT Sodium Potassium Chloride Carbon Dioxide Anion Gap BUN Creatinine Estim Creat Clear Calc Estimated GFR Glucose Calcium Iron TIBC % Saturation Ferritin Total Bilirubin AST ALT Alkaline Phosphatase Troponin I < 0.012 Total Protein Albumin Lipase Vitamin B12 Folate TSH (Reflex) Urine Color Yellow Urine Appearance Clear Urine pH 5.0 Ur Specific Fabens 1.019 Urine Protein Trace Urine Glucose (UA) Negative Urine Ketones Negative Ur Blood (Man) Negative Urine Nitrate Negative Urine Bilirubin Negative Urine Urobilinogen 0.2 Add Ur Microanalysis Reviewed Leukocyte Esterase Rfl Negative Urine RBC 0-2 Urine WBC 0-5 Ur Squamous Epith Cells None seen Urine Bacteria None seen Urine Casts 11-20 Influenza A (RT-PCR) Influenza B (RT-PCR) RSV (RT-PCR) SARS-CoV-2 RNA (RT-PCR) Blood Type Antibody Screen Antibody Identification Antigen Identification AMY, IgG Interpret AMY, Poly Interpret AMY, Complement Interp Crossmatch Impressions Chest X-Ray 02/13/25 17:18 Impression: No acute cardiopulmonary abnormality. EKG: AFib with premature ventricular complexes, moderate voltage criteria for LVH, inferior AZ indeterminate age AZ finding unchanged from prior. Cardiology interpretation pending. Assessment and Plan Assessment and plan (1) Chronic obstructive pulmonary disease: Qualifiers: COPD type: COPD with acute exacerbation Qualified Code(s): J44.1 - Chronic obstructive pulmonary disease with (acute) exacerbation Code(s): J44.9 - Chronic obstructive pulmonary disease, unspecified Status: Acute (2) Acute on chronic anemia: Code(s): D64.9 - Anemia, unspecified Status: Acute (3) Iron deficiency anemia: Qualifiers: Iron deficiency anemia type: unspecified iron deficiency Qualified Code(s): D50.9 - Iron deficiency anemia, unspecified Code(s): D50.9 - Iron deficiency anemia, unspecified Status: Acute (4) Chest pain: Qualifiers: Chest pain type: chest pain on breathing Qualified Code(s): R07.1 - Chest pain on breathing Code(s): R07.9 - Chest pain, unspecified Status: Acute (5) Elevated temperature: Code(s): R50.9 - Fever, unspecified Status: Acute (6) Bedbug bite: Qualifiers: Encounter type: initial encounter Qualified Code(s): W57.XXXA - Bitten or stung by nonvenomous insect and other nonvenomous arthropods, initial encounter Code(s): W57.XXXA - Bitten or stung by nonvenomous insect and other nonvenomous arthropods, initial encounter Status: Acute (7) Environmental infestation of insects: Code(s): Z59.19 - Other inadequate housing Status: Acute (8) GERD (gastroesophageal reflux disease): Qualifiers: Esophagitis presence: esophagitis presence not specified Qualified Code(s): K21.9 - Gastro-esophageal reflux disease without esophagitis Code(s): K21.9 - Gastro-esophageal reflux disease without esophagitis Status: Acute (9) Malingering: Code(s): Z76.5 - Malingerer [conscious simulation] Status: Acute (10) Protein calorie malnutrition: Qualifiers: Protein-calorie malnutrition severity: severe Qualified Code(s): E43 - Unspecified severe protein-calorie malnutrition Code(s): E46 - Unspecified protein-calorie malnutrition Status: Acute (11) CKD (chronic kidney disease) stage 3, GFR 30-59 ml/min: Qualifiers: Chronic kidney disease stage 3 subtype: stage 3b (GFR 30-44) Qualified Code(s): N18.32 - Chronic kidney disease, stage 3b Code(s): N18.30 - Chronic kidney disease, stage 3 unspecified Status: Acute (12) Chronic anticoagulation: Code(s): Z79.01 - USP (current) use of anticoagulants Status: Acute (13) Eczema: Qualifiers: Eczema type: intrinsic Qualified Code(s): L20.84 - Intrinsic (allergic) eczema Code(s): L30.9 - Dermatitis, unspecified Status: Acute Plan Patient presented with chest pain with associated symptoms of increased cough and wheezing. Clinical picture most consistent with COPD exacerbation and noncardiac chest pain. The patient does have a history of malingering and medications seeking behaviors. Will avoid giving patient narcotics if possible and will treat patient's pain with Tylenol and topical lidocaine patch for her left shoulder arthritic pain. Will treat underlying COPD exacerbation with steroids and scheduled nebulizer treatments. The patient does have acute on chronic anemia most likely due to dietary insufficiency. The patient denies taking her Eliquis that she has been previously prescribed. Given her acute on chronic anemia will continue toe hold Eliquis and aspirin therapy Patient's Hemoccult stool was weakly positive but patient is also non compliant with PPI therapy with with history of GERD. Patient has no evidence of active acute GI bleed but will place patient on Protonix IV b.i.d.. Will give the patient 500 mg IV Venofer and 1 unit packed red blood cells has been ordered. Patient does have antibodies but blood was available from the blood bank shortly after the patient arrived to the intermediate unit. Will repeat CBC in a.m.. Patient has chronic kidney disease and creatinine appears stable. Will avoid nephrotoxic medications. Will repeat electrolyte panel in a.m.. The patient does have bed bug infestation. Despite her belongings being bagged up in the ER she was continuing to dig through belongings and was initially difficult to redirect subsequently the patient's belongings of in place in the bathroom out of her reach. Patient has eczema to the dorsum of the left arm triamcinolone ointment has been ordered. Patient is historically noncompliant with medications at home in his left the hospital AMA on multiple occasions in the past. Attempted to encourage the patient to comply with management strategies and will try to reinforce the importance of medical care. Patient has been admitted as observation status. MEDICAL DECISION MAKING NARRATIVE -Spoke with the ED provider in detail regarding patient's evaluation, workup and management -Patient seen and examined at bedside -Collaborated with patient's nurse at the bedside in detail and addressed all concerns -Labs, electrolytes, radiology, investigations and test results personally reviewed and interpreted unless otherwise specified -ED/Consult/Nursing/Ancilliary notes on the chart reviewed and appreciated -Spoke with patient at bedside and diagnosis and plan of care was discussed. All questions answered. Quality VTE Prophylaxis VTE prophylaxis: mechanical ordered (SCDs) Hospitalist [facility] Advance Care Plan I have confirmed that the patient's Advanced Care Plan is present, code status is documented, or surrogate decision maker is listed in patient medical record.: Yes Medication Reconciliation I have utilized all available resources to obtain, update and review the patients current medications (includes all prescriptions, OTC, herbals, cannabis, and nutritional supplements).: Yes
[2025-02-13 20:17] LABS: Troponin I < 0.012 ng/mL (0.000-0.034)
[2025-02-13] MEDS: IRON SUCROSE COMPLEX 400 MG, IRON SUCROSE COMPLEX 100 MG in SODIUM CHLORIDE 0.9% IV 250 ML 78.57 MG IVPB (20:45)
--- NOTE | 2025-02-13 20:54 | PC.NURSE ---
Patients belongings placed in trash bags and double bagged. patient instructed on importance of leaving her belongings in the bag, sealed and untouched. Patient verbalized understanding.
[2025-02-13 21:12] LABS: Cannabinoid Screen Urine Negative (Negative)
[2025-02-13 21:29] LABS: Influenza A QL RT-PCR Negative (Negative); Influenza B QL RT-PCR Negative (Negative); RSV RNA, RT-PCR Negative (Negative); SARS-CoV-2 RNA PCR Negative (Negative)
--- NOTE | 2025-02-13 22:19 | ADMGEN ---
This patient, Teagan Sigala, was admitted to IMU Room 231-01. Patient/family oriented to hospital policies and general routines including ID bracelet, bed and alarms, visiting hours, pain management, procedures, bathroom and other care routines, personal items, smoking policy, room service/diet, and visiting hours. Information on how to activate the Rapid Response Team has been discussed. Patient/Family are encouraged to report perceived risks to care and to ask questions if they do not understand what they are told or what they should do.
[2025-02-13 23:47] LABS: Troponin I < 0.012 ng/mL (0.000-0.034)
[2025-02-14] VITALS (29 sets, daily range): BP systolic 109–143; BP diastolic 40–78; PULSE 70–153; RESP 15–24; TEMP 36.6–37.3; O2SAT 90–100; BMI 15.5
--- NOTE | 2025-02-14 | ECHO_ITS ---
Patient Info Name: Teagan Sigala Age: 74 years : 1950 Gender: Female Ht: 65 in Wt: 93 lbs BSA: 1.37 m2 HR: 70 bpm BP: 120 / 62 mmHg Technical Quality: Good Exam Date: 02/14/2025 1:21 PM Patient Status: I Admit Date: 02/13/2025 Exam Type: CA echo doppler color flow Complete two-dimensional, color flow and Doppler transthoracic echocardiogram is performed. Staff Referring Physician: Lana Terry Flux Tube Attendant: Carole Baxter Attending Provider: Abby Limon Summary 1. Complete two-dimensional, color flow and Doppler transthoracic echocardiogram is performed. 2. Left ventricular systolic function is normal, estimated at 50-55. 3. There is mildly increased left ventricular wall thickness. 4. Left ventricular septal wall motion is abnormal with septal motion related to pacing. 5. Linear artifact in right ventricle suggestive of catheter(s), pacemaker lead(s), or ICD lead(s). 6. There is mild mitral valve regurgitation. 7. There is mild mitral valve calcification. 8. There is trace tricuspid valve regurgitation. 9. No pulmonary hypertension, estimated pulmonary arterial systolic pressure is 34 mmHg. 10. possible mass/focal calcification in LVOT. a limited echo with focus on LVOT is advised. Left Ventricle Left ventricular chamber dimension is normal. Left ventricular systolic function is normal, estimated at 50-55. There is mildly increased left ventricular wall thickness. Left ventricular septal wall motion is abnormal with septal motion related to pacing. The left ventricular diastolic function is abnormal. Right Ventricle Right ventricular chamber dimension is normal. Right ventricular systolic function is normal. Linear artifact in right ventricle suggestive of catheter(s), pacemaker lead(s), or ICD lead(s). Left Atria Left atrial chamber dimension is normal. Right Atria Right atrial chamber dimension is normal. Aortic Valve The aortic valve is trileaflet. There is mild aortic valve sclerosis. There is no aortic valve stenosis. There is no aortic valve regurgitation. Pulmonic Valve The pulmonic valve is normal. There is no pulmonic valve stenosis. There is no pulmonic regurgitation. Mitral Valve The mitral valve has normal leaflets. There is no mitral valve stenosis. There is mild mitral valve regurgitation. There is mild mitral valve calcification. Tricuspid Valve The tricuspid valve leaflets are normal. There is no significant tricuspid valve stenosis. There is trace tricuspid valve regurgitation. No pulmonary hypertension, estimated pulmonary arterial systolic pressure is 34 mmHg. Pericardium/Pleural The pericardium appears normal. There is no pericardial effusion. Inferior Vena Cava Normal inferior vena cava with <50% collapse upon inspiration consistent with elevated right atrial pressure, 10 mmHg. Aorta The aortic root size at the sinus of Valsalva is normal. The prox ascending aorta size is normal. Left Ventricular Outflow Tract Name Value Normal LVOT 2D LVOT Diameter 2.0 cm LVOT Doppler LVOT Peak Velocity 90 cm/s LVOT Peak Gradient 3 mmHg LVOT Mean Gradient 2 mmHg LVOT VTI 23 cm LVOT VTI/AV VTI Ratio 0.7 LVOT Stroke Volume 75 ml LVOT CO 13.0 l/min LVOT CI 9.5 l/min/m2 Pulmonic Valve Name Value Normal PV Doppler PV Peak Velocity 99 cm/s PV Peak Gradient 4 mmHg Mitral Valve Name Value Normal MV Diastolic Function MV E Peak Velocity 82 cm/s MV A Peak Velocity 113 cm/s MV E/A 0.7 MV Decel Time (PW) 276 ms MV Annular TDI MV E/e' (Septal) 13.0 MV E/e' (Lateral) 9.1 MV E/e' (Average) 11.0 Tricuspid Valve Name Value Normal TV Regurgitation Doppler TR Peak Velocity 243 cm/s TR Peak Gradient 22 mmHg Estimated PAP/RSVP RA Pressure 10 mmHg <=5 PA Systolic Pressure 34 mmHg <36 RV Systolic Pressure 34 mmHg <36 TV Annular TDI TV Lateral Chantel s' Velocity 13.6 cm/s >=9.5 Aorta Name Value Normal Ascending Aorta Ao Root Diameter (MM) 3.2 cm Ao Root Diam Index (MM) 2.3 cm/m2 Aortic Valve Name Value Normal AV Doppler AV Peak Velocity 184 cm/s AV Peak Gradient 14 mmHg AV Mean Gradient 8 mmHg AV VTI 36 cm AV Area (Cont Eq VTI) 2.1 cm2 >=3.0 AV Area (Cont Eq López) 1.6 cm2 AV DI (López) 0.49 AV Regurgitation 2D LVOT Area 3.2 cm2 Ventricles Name Value Normal LV Dimensions 2D/MM IVS Diastolic Thickness (2D) 1.4 cm 0.6-1.0 LVID Diastole (2D) 4.7 cm 3.8-5.2 LVIW Diastolic Thickness (2D) 1.1 cm 0.6-0.9 LVID Systole (2D) 3.9 cm 2.2-3.5 LVOT Diameter 2.0 cm LV Mass (2D Cubed) 222.68 g 67.00-162.00 LV Mass Index (2D Cubed) 162 g/m2 43-95 Relative Wall Thickness (2D) 0.48 <=0.42 LV Fractional Shortening/Ejection Fraction 2D/MM LV Fractional Shortening (2D) 17 % 27-45 LV EF (2D Teichholz) 35 % LV Diastolic Volume (4C MOD) 124 ml LV EF (4C MOD) 43 % LV Diastolic Volume (2C MOD) 138 ml LV EF (2C MOD) 46 % LV Diastolic Volume (BP MOD) 140 ml 46-106 LV Diastolic Volume Index (BP MOD) 102 ml/m2 29-61 LV Systolic Volume (BP MOD) 77 ml 14-42 LV Systolic Volume Index (BP MOD) 56 ml/m2 8-24 LV EF (BP MOD) 45 % 54-74 LV Diastolic Length (4C) 7.6 cm LV Systolic Length (4C) 6.7 cm LV Stroke Volume (4C MOD) 53 ml RV Dimensions 2D/MM RVID Diastole (2D) 3.5 cm 2.1-3.5 Atria Name Value Normal LA Dimensions LA Volume (4C A-L) 49 ml LA Volume (BP A-L) 66 ml RA Dimensions RA Systolic Major Kimberly Length (4C) 3.9 cm 2.2-2.8 RA Area (4C) 10.5 cm2 <=18.0 Report Signatures
[2025-02-14] MEDS: PANTOPRAZOLE SODIUM IV 40 MG VIAL IV PUSH ×3 (00:59→21:11)
--- NOTE | 2025-02-14 06:01 | PCRCNOTE ---
Patient visited for administration of nebulized DuoNeb; refused, said to get out, she yelled shut up and get out; RT informed her that he needed to let the doctor know that she was refusing treatment; she said I didn't say that. RT said that we don't talk to people that way and left
--- NOTE | 2025-02-14 08:59 | ECG_ITS ---
Test Date: 2025-02-14 09:34:36 Measurements Intervals [place] Rate: 81 P: 75 NH: 127 QRS: 65 QRSD: 91 T: 64 QT: 369 QTc: 430 Interpretive Statements SINUS RHYTHM LEFT VENTRICULAR HYPERTROPHY AND ST-T CHANGE [VOLTAGE CRITERIA PLUS ST/T ABNORMALITY] ABNORMAL ECG Electronically Signed On 02-14-2025 11:16:13 CDT by Marty Carmona M.D.
--- NOTE | 2025-02-14 09:24 | ECG_ITS ---
Test Date: 2025-02-14 09:15:51 Measurements Intervals [place] Rate: 88 P: 0 [place]: 0 QRS: 59 QRSD: 90 T: 61 QT: 356 QTc: 431 Interpretive Statements NORMAL SINUS RHYTHMWITH PREMATURE ATRIAL COMPLEXES AND PREMATURE VENTRICULAR COMPLEXES VOLTAGE CRITERIA FOR LVH [MEETS CRITERIA IN ONE OF: R(aVL), S(V1), R(V5), R(V5/V6)+S(V1)] MODERATE ST DEPRESSION [0.05+ mV ST DEPRESSION] ABNORMAL ECG Electronically Signed On 02-14-2025 12:52:23 CDT by Marty Carmona M.D.
[2025-02-14] MEDS: MORPHINE SULFATE (*CRX) 2 MG/ML INJ 0.5 MG IV PUSH (09:29)
[2025-02-14] MEDS: GABAPENTIN 100 MG CAPSULE PO (09:40)
[2025-02-14] MEDS: LIDOCAINE 5% PATCH 1 PATCH TRANSDERM (09:40)
[2025-02-14] MEDS: IPRATROPIUM 0.5 MG/ALBUTEROL SULFATE 2.5 MG AMPUL.NEB 3 ML INHALATION ×3 (09:42→20:24)
[2025-02-14 10:11] LABS: Hematocrit 33.4 % (37.0-47.0); Hemoglobin 9.3 g/dL (12.0-15.0); Mean Corpuscular HGB Conc 27.8 g/dl (32-36); Mean Corpuscular Hemoglobin 20.3 pg (26-34); Mean Corpuscular Volume 72.9 fl (80-100); Platelet Count Result 270 k/mm3 (150-375); Red Blood Count 4.58 M/mm3 (4.2-5.4); White Blood Count 7.7 K/mm3 (4.5-10.0)
[2025-02-14 10:37] LABS: Alanine Aminotransferase 12 U/L (6-35); Albumin Level 3.2 g/dL (3.5-5.1); Alkaline Phosphatase 103 U/L (38-126); Amylase 87 U/L (30-110); Anion Gap 5 mmol/L (4-12); Aspartate Amino Transferase 24 U/L (14-36); Bilirubin,Total 0.5 mg/dL (0.2-1.3); Blood Urea Nitrogen 25 mg/dL (7-17); Calcium 8.2 mg/dL (8.4-10.2); Carbon Dioxide 23 mmol/L (22-30); Chloride 108 mmol/L (98-107); Creatine Kinase 45 U/L (30-135); Estimated CRCL calculation 23 ml/min; Estimated Glomerular Filt Rate 41; Glucose 106 mg/dL (65-110); Lipase 37 U/L (23-300); Magnesium 2.2 mg/dL (1.6-2.3); Potassium 4.6 mmol/L (3.4-5.0); Sodium 136 mmol/L (137-145); Total Protein 6.3 g/dL (6.3-8.2)
[2025-02-14 10:43] LABS: NT Pro B Type Natriuretic Pept 1380 pg/mL (19.9-100); Troponin I < 0.012 ng/mL (0.000-0.034)
--- NOTE | 2025-02-14 11:31 | PM.CNCAR ---
Assessment and Plan Assessment and plan (1) Chest pain: Code(s): R07.9 - Chest pain, unspecified Status: Acute (2) Coronary artery disease: Code(s): I25.10 - Atherosclerotic heart disease of [place] coronary artery without angina pectoris Status: Acute (3) HTN (hypertension): Qualifiers: Hypertension type: unspecified Qualified Code(s): I10 - Essential (primary) hypertension Code(s): I10 - Essential (primary) hypertension Status: Chronic Plan Diagnosis: -Atypical chest pain which increases with deep breath-troponin X 3 negative, EKG sinus rhythm with LVH and nonspecific ST-T wave changes -CAD status post PCI in the past -Paroxysmal atrial fibrillation on chronic anticoagulation with Eliquis; she developed AFib with RVR to 150s and spontaneously converted to sinus rhythm this morning -Current smoker -Hypertension -Elevated BNP without exam signs and symptoms of heart failure-most likely secondary to renal failure -MARIELA on CKD -Iron deficiency anemia Plan: -Patient has chest pain with both typical and atypical features. Pain increases with exertion and is relieved with rest. However it gets worse with deep breathing and palpation. She has not been compliant with her cardiac medications -Recommend TTE to evaluate wall motion. If she has any new regional wall motion abnormalities, then proceed with cardiac catheterization to further evaluate coronaries. If echo is without regional wall motion abnormalities or is equivocal then recommend stress MPS to evaluate ischemia as cause of patient's symptoms -Continue aspirin 81 mg daily -Atorvastatin 40 mg daily -Metoprolol 25 mg b.i.d. -Continue Eliquis -Hold losartan due to MARIELA -Counseled about smoking cessation -Management of other medical problems per primary team -Plan was discussed with patient and she is agreeable History of Present Illness History of Present Illness Consult date/time: 02/14/25 11:31 Reason For Visit: Chest pain, Anemia Narrative: 74-year-old female with history of CAD status post PCI, cardiomyopathy status post ICD, paroxysmal atrial fibrillation on chronic anticoagulation, CVA, hyperlipidemia, hypertension, current smoker, carotid stenosis, COPD, GERD, GI bleed, CKD, iron deficiency anemia, malingering presents with chief complaints of chest pain. Patient is noncompliant with medication and is not taking any of her prescribed medication because she does not believe they are needed. She reports squeezing chest pain off and on for a week that is worse when she takes a breath. She states that the chest pain radiates up into her neck and left shoulder/arm. Pain is somewhat reproducible with chest palpation. Chest pain increases with exertion such as walking up stairs and is relieved by rest. She reports nonproductive cough for 2 days and increased wheezing. She reports rash on the dorsum of her left arm for several weeks with thickened skin. She also has multiple bite smith in the same region. The patient was found to have bed bugs in her belongings while she was in the ER. Patient is unaware that she has been PACs. After transfer to the floor she was noted to have AFib with RVR to the 150s and spontaneously cardioverted back to sinus rhythm. Cardiology is consulted for further evaluation of chest pain. She currently reports left-sided chest pain that is worse with deep breathing of intensity 5/10. No shortness of breath, lightheadedness, dizziness, leg swelling, recent weight gain, palpitations, presyncope, syncope. Workup: Hemoglobin: 9.3 (was 6.8 on presentation) Creatinine: 1.27 D-dimer: 2.98 NT proBNP: 1380 Troponin: Less than 0.012 X 3 EKG: Sinus rhythm, LVH, nonspecific ST-T wave change Chest x-ray: No acute cardiopulmonary pathology Review of Systems Review of Systems: Complete review of systems was performed and pertinent positives are reported in the [facility] Past Medical History Medical History (Updated 02/14/25 @ 07:51 by Amina Worthy DO) Bladder neoplasm of uncertain malignant potential CKD (chronic kidney disease) stage 3, GFR 30-59 ml/min Carotid stenosis Malingering Hyperlipidemia Hypertension GI bleed Gastroesophageal reflux disease Cerebrovascular accident Per patient reports, she had 2 or 3 strokes, the last being in April 2019 although not well documented. Chronic obstructive pulmonary disease Coronary artery disease Cerebral atherosclerosis Lupus Patient states she has lupus, not well documented. Fibromyalgia Questionable history of fibromyalgia Anxiety Depression Systemic lupus erythematosus Hyperpituitarism Left foot drop Osteoporosis Bladder cancer Arthritis Renal cancer Gastric ulcer Bronchitis Myocardial infarction Peripheral neuropathy Meningitis Surgical History Surgical History (Updated 02/13/25 @ 20:35 by Amina Worthy DO) History of incision and drainage (06/2022) Right groin abscess. Right groin abscess had been due to perforation of bowel into the incarcerated hernia earlier in the same hospitalization History of resection of small bowel (06/20/22) Small-bowel resection with repair of incarcerated right inguinal hernia. History of bilateral breast reduction surgery History of cardiac defibrillator placement Reportedly for ventricular tachycardia. History of heart artery stent History of hysterectomy History of cholecystectomy History of tonsillectomy History of cardiac catheterization Family History Family History Father Hypertension Mother Hypertension Family history of cardiovascular disease Social History Social History (Updated 02/14/25 @ 07:36 by Amina Worthy DO) Social History: Surrogate medical decision maker: Maxi Carrasquillo, lexa. Code status: DNR/DNI (per patient request) Smoking packs per day: 1 Smoking cigarettes per day: 20.0 Years smoked: 45 Smoking pack-years: 45.00 Smoking status: Current every day smoker Tobacco type: cigarettes Second hand tobacco smoke exposure: Yes Alcohol intake: former Substance use: never Substance use type: does not use Do You Feel Safe in your Home?: Yes Lack of Transportation: No Lack of Food: Never True Current Housing: I Have Housing Concerned About Future Housing: No Difficulty Paying Gas/Electric Bills: No Difficulty Paying for Meds: No Currently Unemployed: No Education: Associate Degree Difficulty w/ Childcare or Family Care: No Additional living arrangements comments: with three children. Lives in [place]. Two of her sons live with her. 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 Spiritual care concerns: No Agree to blood products: Yes Meds Home Medications and Allergies Home Medications ?Medication ?Instructions ?Recorded ?Confirmed ?Type prednisone 10 mg tablet 5 mg PO DAILY Shortness Of Breath 09/20/20 02/14/25 History Or Wheezing albuterol sulfate 90 mcg/actuation 90 mcg inhalation QID PRN 08/16/22 02/14/25 History aerosol inhaler Shortness Of Breath gabapentin 100 mg capsule 100 mg PO DAILY 08/16/22 02/14/25 History losartan 100 mg tablet 100 mg PO DAILY 08/16/22 02/14/25 History mirtazapine 15 mg tablet 15 mg PO QHS 08/16/22 02/14/25 History naproxen 500 mg tablet 500 mg PO Q12H 08/16/22 02/14/25 History nitroglycerin 0.4 mg sublingual 0.4 mg sublingual BID PRN Chest 08/16/22 02/14/25 History tablet Pain sumatriptan succinate 100 mg tablet 100 mg PO BID PRN Headache 08/16/22 02/14/25 History aspirin 81 mg tablet,delayed 81 mg PO DAILY 11/25/22 02/14/25 History release nortriptyline 10 mg capsule 10 mg PO HS 08/23/23 02/14/25 History tizanidine 4 mg tablet 4 mg PO QID PRN Back Pain 08/23/23 02/14/25 History trazodone 100 mg tablet 100 mg PO HS 08/23/23 02/14/25 History apixaban 2.5 mg tablet (Eliquis) 2.5 mg PO BID 03/14/24 02/14/25 History oxycodone-acetaminophen 7.5 mg-325 1 tablet PO BID PRN Pain 03/14/24 02/14/25 History mg tablet pantoprazole 40 mg tablet,delayed 40 mg PO QAM #15 tabs 03/15/24 02/14/25 Rx release azithromycin 250 mg tablet 250 mg PO DAILY 5 days #5 tabs 05/08/24 02/14/25 Rx (Zithromax) prednisone 20 mg tablet 20 mg PO BID 3 days #6 tabs 05/08/24 02/14/25 Rx ondansetron 4 mg disintegrating 4 mg PO Q8H PRN nausea and 05/24/24 02/14/25 Rx tablet vomiting #14 tabs Allergies Allergy/AdvReac Type Severity Reaction Status Date / Time Penicillins Allergy Severe Swelling Verified 05/07/24 13:41 of Lip/Tongue/Throat Sulfa (Sulfonamide Allergy Unknown Unknown Verified 05/07/24 13:41 Antibiotics) amphetamine (From Adderall) Allergy Unknown Verified 05/07/24 19:04 dextroamphetamine (From Allergy Unknown Verified 05/07/24 19:04 Adderall) lorazepam (From Ativan) Allergy Agitated Verified 05/07/24 14:00 Vital Signs Vital Signs - 24 hr 02/13/25 16:43 02/13/25 17:32 02/13/25 18:03 Temperature 37.6 C H Pulse Rate 84 83 77 Respiratory Rate 18 16 Blood Pressure 109/55 L 121/60 Pulse Oximetry 96 98 Oxygen Delivery Room Air Oxygen Flow Rate 02/13/25 18:43 02/13/25 18:58 02/13/25 19:00 Temperature Pulse Rate 82 76 Respiratory Rate 19 24 H Blood Pressure 116/54 L Pulse Oximetry 100 99 98 Oxygen Delivery Room Air Oxygen Flow Rate 02/13/25 19:46 02/13/25 20:00 02/13/25 20:16 Temperature Pulse Rate 82 80 76 Respiratory Rate 24 H 27 H 25 H Blood Pressure Pulse Oximetry Oxygen Delivery Oxygen Flow Rate 02/13/25 20:56 02/13/25 21:33 02/13/25 21:50 Temperature Pulse Rate 77 78 77 Respiratory Rate 17 18 20 Blood Pressure 122/80 113/66 113/66 Pulse Oximetry 97 95 94 Oxygen Delivery Oxygen Flow Rate 02/13/25 23:47 02/14/25 00:00 02/14/25 00:00 Temperature 36.8 C Pulse Rate 78 77 Respiratory Rate 20 Blood Pressure 128/46 L Pulse Oximetry 96 Oxygen Delivery Room Air Oxygen Flow Rate 02/14/25 02:00 02/14/25 04:00 02/14/25 04:00 Temperature 36.6 C Pulse Rate 80 75 Respiratory Rate 20 Blood Pressure 125/40 L Pulse Oximetry 95 Oxygen Delivery Room Air Oxygen Flow Rate 02/14/25 04:00 02/14/25 06:00 02/14/25 06:32 Temperature 37.2 C Pulse Rate 74 132 H 78 Respiratory Rate 16 Blood Pressure 128/55 L Pulse Oximetry 95 Oxygen Delivery Oxygen Flow Rate 02/14/25 06:50 02/14/25 07:45 02/14/25 07:50 Temperature 36.8 C 37.1 C Pulse Rate 75 79 Respiratory Rate 16 18 Blood Pressure 134/50 L 137/60 Pulse Oximetry 91 94 94 Oxygen Delivery Room Air Oxygen Flow Rate 02/14/25 08:00 02/14/25 08:09 02/14/25 08:50 Temperature 37.1 C 37.0 C Pulse Rate 83 79 153 H Respiratory Rate 18 20 Blood Pressure 137/60 111/65 Pulse Oximetry 94 92 Oxygen Delivery Oxygen Flow Rate 02/14/25 09:25 02/14/25 09:43 02/14/25 09:44 Temperature 37.3 C Pulse Rate 81 78 Respiratory Rate 15 16 Blood Pressure 143/78 H Pulse Oximetry 90 92 Oxygen Delivery Nasal Cannula Oxygen Flow Rate 4 02/14/25 09:50 02/14/25 10:00 Temperature Pulse Rate 86 81 Respiratory Rate 16 Blood Pressure Pulse Oximetry Oxygen Delivery Oxygen Flow Rate Exam Narrative: General: Alert oriented x3, no acute distress Neck: Supple, no JVD Chest: Bilaterally clear to auscultation, no rales or rhonchi Cardiac: S1, S2 +, regular rate, regular rhythm, no murmurs or rubs Extremities: No pedal edema, no skin rash Neurologic: Alert and oriented x3, no focal neurological deficits Results Labs and Meds 02/14/25 10:04 02/14/25 10:04 Lab results: Cardiac Enzymes 02/13/25 02/13/25 02/13/25 Range/Units 17:00 19:45 23:21 AST 31 (14-36) U/L Troponin I < 0.012 < 0.012 < 0.012 (0.000-0.034) ng/mL 02/14/25 Range/Units 10:04 AST 24 (14-36) U/L Troponin I < 0.012 (0.000-0.034) ng/mL Coagulation 02/13/25 Range/Units 17:00 PT 13.3 (11.1-14.7) Seconds APTT 25.8 (22.3-36.8) Seconds CBC 02/13/25 02/14/25 Range/Units 17:00 10:04 WBC 9.5 7.7 (4.5-10.0) K/mm3 RBC 3.52 L 4.58 (4.2-5.4) M/mm3 Hgb 6.8 L* D 9.3 L (12.0-15.0) g/dL Hct 25.3 L 33.4 L (37.0-47.0) % Plt Count 225 270 (150-375) k/mm3 Lymph # (Auto) 0.69 L (0.9-3.2) K/mm3 [place] # (Auto) 0.8 H (0.1-0.6) K/mm3 Eos # (Auto) 0.8 H (0-0.3) K/mm3 Baso # (Auto) 0.0 (0.0-0.1) K/mm3 Comprehensive Metabolic Panel 02/13/25 02/14/25 Range/Units 17:00 10:04 Sodium 135 L 136 L (137-145) mmol/L Potassium 4.5 4.6 (3.4-5.0) mmol/L Chloride 105 108 H (98-107) mmol/L Carbon Dioxide 24 23 (22-30) mmol/L BUN 24 H 25 H (7-17) mg/dL Creatinine 1.50 H 1.27 H (0.7-1.0) mg/dL Glucose 94 106 (65-110) mg/dL Calcium 8.1 L 8.2 L (8.4-10.2) mg/dL AST 31 24 (14-36) U/L ALT 12 12 (6-35) U/L Alkaline Phosphatase 87 103 (38-126) U/L Total Protein 6.4 6.3 (6.3-8.2) g/dL Albumin 3.3 L 3.2 L (3.5-5.1) g/dL Intake and Output 02/13/25 02/14/25 02/14/25 23:59 07:59 15:59 Intake Total 240 350 Output Total 1 Balance 240 349 Intake: Intake (Blood Product) Amt 0 350 Leukocyte Reduced Rbc Unit 0 350 [id number] Oral 240 Output: Output, Urine/Stool Mix Amount 1 Other: Number of Bowel Movements Today 1 Patient Weight 02/14/25 23:59 Weight 42.4 kg
--- NOTE | 2025-02-14 13:13 | P.PNIM_ITS ---
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, hypnotic, or anxiolytic use, unspecified, uncomplicated Status: Acute (4) HTN (hypertension): Qualifiers: Hypertension type: unspecified Qualified Code(s): I10 - Essential (primary) hypertension Code(s): I10 - Essential (primary) hypertension Status: Chronic (5) Chest pain: Code(s): R07.9 - Chest pain, unspecified Status: Acute (6) Coronary artery disease: Code(s): I25.10 - Atherosclerotic heart disease of [place] coronary artery without angina pectoris Status: Acute (7) ICD (implantable cardioverter-defibrillator) battery depletion: Code(s): Z45.02 - Encounter for adjustment and management of automatic implantable cardiac defibrillator Status: Chronic (8) Chronic anticoagulation: Code(s): Z79.01 - assisted (current) use of anticoagulants Status: Acute (9) Protein calorie malnutrition: Qualifiers: Protein-calorie malnutrition severity: severe Qualified Code(s): E43 - Unspecified severe protein-calorie malnutrition Code(s): E46 - Unspecified protein-calorie malnutrition Status: Acute (10) DONAVON (acute kidney injury): Code(s): N17.9 - Acute kidney failure, unspecified Status: Acute (11) Anemia: Code(s): D64.9 - Anemia, unspecified Status: Acute Plan 74-year-old female with a past medical history of coronary artery disease with prior cardiac stent, ICD placement, hypertension, CVA, COPD, GERD, chronic kidney disease and malingering who presented to the ER with reports of chest pain. The patient is historically noncompliant with medical management is not taking any of her prior prescribed medications because she does not believe there needed. In the ER he rectal exam was performed and the Hemoccult was weakly positive. Patient does have chronic protein malnutrition and has chronic dietary deficiencies in iron. 1. Chest pain: Continue with tele monitoring Atypical chest pain Troponin x3 negative EKG with nonspecific changes AFib in the morning Appreciate cardiology help Await echocardiogram Continue aspirin 81 mg daily, Lipitor 40 mg daily Metoprolol 25 mg b.i.d. Continue with Eliquis Holding losartan due to DONAVON 2. Acute on chronic anemia: Hemoccult-positive in the ER Has history of GERD On Eliquis Status post 1 unit of PRBC Status post IV iron Hemoglobin stable post transfusion Will get GI consult Continue with PPI 3. Abdominal pain: Elevated lipase in the ER Has normalized Obtain CT abdomen pelvis 4. Acute hypoxic respiratory failure: ? COPD exacerbation Continue with DuoNebs Continue with Solu-Medrol Elevated D-dimer Chest x-ray unremarkable Obtain V/Q scan 5. Donavon I on pre-existing CKD: Improving kidney function Avoid nephrotoxins Recheck BMP in a.m. 6. Code status: DNR 7. DVT prophylaxis on Eliquis 8. Disposition: Pending improvement, patient has tendency to leave AMA Time Spent With Patient Time: 43 minutes Subjective Date/time seen: 02/14/25 13:13 Interval history: Chest pain, abdominal pain Had an episode of left-sided chest pain radiating to arms along with tachycardia this morning Received 0.5 of IV morphine along with 40 mg of IV Solu-Medrol Patient had just finished 1 unit of PRBC Had went into AFib followed by spontaneous conversion to sinus rhythm Review of Systems Review of Systems: Do not obtained due to acuity of ongoing chest pain Exam Const: Other: Anxious, complaining of chest pain Cachectic HENMT: Mouth: Yes dry mucous membranes Eyes: General: appearance normal, both eyes and all related structures Neck: Neck: supple Resp: Auscultation: clear to auscultation bilaterally Cardio: Rate: tachycardic Rhythm: abnormal rhythm GI: GI Palp: Yes Soft to palpation Auscultation: normal bowel sounds Skin: General skin exam: normal color Neuro: Other: Anxious Psych: Mental Status: mental status grossly normal Affect: Anxious affect present Objective Data Vital Signs Vital Signs: Vital Signs - 24 hr 02/13/25 16:43 02/13/25 17:32 02/13/25 18:03 Temperature 99.7 F H Pulse Rate 84 83 77 Respiratory Rate 18 16 Blood Pressure 109/55 L 121/60 Pulse Oximetry 96 98 Oxygen Delivery Room Air Oxygen Flow Rate 02/13/25 18:43 02/13/25 18:58 02/13/25 19:00 Temperature Pulse Rate 82 76 Respiratory Rate 19 24 H Blood Pressure 116/54 L Pulse Oximetry 100 99 98 Oxygen Delivery Room Air Oxygen Flow Rate 02/13/25 19:46 02/13/25 20:00 02/13/25 20:16 Temperature Pulse Rate 82 80 76 Respiratory Rate 24 H 27 H 25 H Blood Pressure Pulse Oximetry Oxygen Delivery Oxygen Flow Rate 02/13/25 20:56 02/13/25 21:33 02/13/25 21:50 Temperature Pulse Rate 77 78 77 Respiratory Rate 17 18 20 Blood Pressure 122/80 113/66 113/66 Pulse Oximetry 97 95 94 Oxygen Delivery Oxygen Flow Rate 02/13/25 23:47 02/14/25 00:00 02/14/25 00:00 Temperature 98.2 F Pulse Rate 78 77 Respiratory Rate 20 Blood Pressure 128/46 L Pulse Oximetry 96 Oxygen Delivery Room Air Oxygen Flow Rate 02/14/25 02:00 02/14/25 04:00 02/14/25 04:00 Temperature 98 F Pulse Rate 80 75 Respiratory Rate 20 Blood Pressure 125/40 L Pulse Oximetry 95 Oxygen Delivery Room Air Oxygen Flow Rate 02/14/25 04:00 02/14/25 06:00 02/14/25 06:32 Temperature 99.0 F Pulse Rate 74 132 H 78 Respiratory Rate 16 Blood Pressure 128/55 L Pulse Oximetry 95 Oxygen Delivery Oxygen Flow Rate 02/14/25 06:50 02/14/25 07:45 02/14/25 07:50 Temperature 98.2 F 98.8 F Pulse Rate 75 79 Respiratory Rate 16 18 Blood Pressure 134/50 L 137/60 Pulse Oximetry 91 94 94 Oxygen Delivery Room Air Oxygen Flow Rate 02/14/25 08:00 02/14/25 08:09 02/14/25 08:50 Temperature 98.8 F 98.6 F Pulse Rate 83 79 153 H Respiratory Rate 18 20 Blood Pressure 137/60 111/65 Pulse Oximetry 94 92 Oxygen Delivery Oxygen Flow Rate 02/14/25 09:25 02/14/25 09:43 02/14/25 09:44 Temperature 99.1 F Pulse Rate 81 78 Respiratory Rate 15 16 Blood Pressure 143/78 H Pulse Oximetry 90 92 Oxygen Delivery Nasal Cannula Oxygen Flow Rate 4 02/14/25 09:50 02/14/25 10:00 02/14/25 11:53 Temperature 98.5 F Pulse Rate 86 81 83 Respiratory Rate 16 16 Blood Pressure 120/62 Pulse Oximetry 92 Oxygen Delivery Oxygen Flow Rate Intake/Output Intake/Output: Intake & Output 02/11/25 02/12/25 02/13/25 02/14/25 23:59 23:59 23:59 23:59 Intake Total 590 Output Total 1 Balance 589 Meds/Results Medications: Active Medications Generic Name Dose Route Start Last Admin Trade Name Freq PRN Reason Stop Dose Admin Acetaminophen 650 mg 02/13/25 18:43 Acetaminophen 325 Mg Tablet PO Q4H PRN Mild Pain (1-3) or Fever Al Hydrox/Mg Hydrox/Simethicone 30 ml 02/13/25 20:37 Mag Hydrox/Al Hydrox/Simeth 30 Ml Udc PO Q6H PRN Indigestion Albuterol/Ipratropium 3 ml 02/14/25 09:50 02/14/25 09:42 Ipratropium 0.5 Mg/Albuterol Sulfate 2.5 Mg Ampul.Neb 3 Ml INHALATION 3 ml Q6HRT [facility] Administration Aspirin 81 mg 02/15/25 09:00 Aspirin 81 Mg Enteric Tablet PO QAM [facility] Atorvastatin Calcium 40 mg 02/15/25 09:00 Atorvastatin 40 Mg Tablet PO DAILY [facility] Docusate Sodium 100 mg 02/13/25 20:37 Docusate Sodium 100 Mg Capsule PO Q12H PRN Constipation Gabapentin 100 mg 02/14/25 09:00 02/14/25 09:40 Gabapentin 100 Mg Capsule PO 100 mg DAILY [facility] Administration Lidocaine 1 patch 02/14/25 09:00 02/14/25 09:40 Lidocaine 5% Patch TRANSDERM 1 patch DAILY [facility] Administration Melatonin 5 mg 02/14/25 21:00 Melatonin 5 Mg Tablet PO HS [facility] Methylprednisolone Sodium Succinate 40 mg 02/14/25 06:00 02/14/25 06:14 Methylprednisolone Sod Succ 40 Mg Vial IV PUSH 40 mg Q6HR KENDY Administration Metoprolol Tartrate 12.5 mg 02/14/25 21:00 Metoprolol Tartrate 12.5 Mg Tablet PO Q12HR [facility] Mirtazapine 15 mg 02/14/25 21:00 Mirtazapine 15 Mg Tablet PO QHS [facility] Ondansetron HCl 4 mg 02/13/25 18:43 Ondansetron Inj 4 Mg/2 Ml Vial IV PUSH Q4H PRN Nausea Pantoprazole Sodium 40 mg 02/13/25 21:20 09/15/25 09:40 Pantoprazole Sodium Iv 40 Mg Vial IV PUSH 40 mg Q12HR KENDY Administration Perflutren Lipid Microsphere 0 ml 02/14/25 12:16 Perflutren Lipid Microspheres 1.5 Ml Vial Diluted To 10 Ml Total Volume IV PUSH 02/17/25 12:16 ONCE PRN adequate visualization Protocol Triamcinolone Acetonide 1 applic 02/14/25 09:00 02/14/25 09:41 Triamcinolone Acet 0.1% Oint 15 Gm Tube TOPICAL Not Given Q12HR [facility] Radiology Results: ITS Impressions Chest X-Ray 02/13/25 17:18 Impression: No acute cardiopulmonary abnormality. Labs Labs: Laboratory Results - last 24 hr 02/13/25 02/13/25 02/13/25 16:59 17:00 17:00 WBC 9.5 RBC 3.52 L Hgb 6.8 L* D Hct 25.3 L MCV 71.9 L MCH 19.3 L MCHC 26.9 L RDW 20.5 H Plt Count 225 MPV 9.2 Immature Gran % (Auto) 0.3 Neut % (Auto) 75.0 H Lymph % (Auto) 7.3 L [place] % (Auto) 8.8 H Eos % (Auto) 8.4 H Baso % (Auto) 0.2 Lymph # (Auto) 0.69 L [place] # (Auto) 0.8 H Eos # (Auto) 0.8 H Baso # (Auto) 0.0 Abs Immat Gran (auto) 0.03 Absolute Neuts (auto) 7.1 H Absolute Nucleated RBC 0.000 Band Neutrophils % Not Reportable Nucleated RBC % 0.0 Platelet Estimate Adequate Polychromasia Occasional Hypochromasia 2+ Microcytosis 2+ Ovalocytes 1+ Schistocytes Rare PT 13.3 INR 1.0 APTT 25.8 D-Dimer Sodium 135 L Potassium 4.5 Chloride 105 Carbon Dioxide 24 Anion Gap 6 BUN 24 H Creatinine 1.50 H Estim Creat Clear Calc Not Reportable Estimated GFR 34 L Glucose 94 Calcium 8.1 L Magnesium Iron 29 L TIBC 435 % Saturation 7 L Ferritin 5.23 L Total Bilirubin 0.1 L AST 31 ALT 12 Alkaline Phosphatase 87 Total Creatine Kinase Troponin I < 0.012 NT-Pro-B Natriuret Pep Total Protein 6.4 Albumin 3.3 L Amylase Lipase 337 H Vitamin B12 302.0 Folate 6.8 TSH (Reflex) 0.975 Urine Color Urine Appearance Urine pH Ur Specific [place] Urine Protein Urine Glucose (UA) Urine Ketones Ur Blood (Man) Urine Nitrate Urine Bilirubin Urine Urobilinogen Add Ur Microanalysis Leukocyte Esterase Rfl Urine RBC Urine WBC Ur Squamous Epith Cells Urine Bacteria Urine Casts Urine Opiates Screen Urine Methadone Screen Ur Barbiturates Screen Ur Phencyclidine Scrn Ur Amphetamine Screen U Benzodiazepines Scrn Urine Cocaine Screen U Cannabinoids Screen Influenza A (RT-PCR) Influenza B (RT-PCR) RSV (RT-PCR) SARS-CoV-2 RNA (RT-PCR) Blood Type O Negative Antibody Screen Positive Antibody Identification Anti-E Antigen Identification C Antigen - NEGATIVE E Antigen - NEGATIVE AMY, IgG Interpret AMY, Poly Interpret AMY, Complement Interp Enhanced Crossmatch 02/13/25 02/13/25 02/13/25 17:00 17:00 17:00 WBC RBC Hgb Hct MCV MCH MCHC RDW Plt Count MPV Immature Gran % (Auto) Neut % (Auto) Lymph % (Auto) [place] % (Auto) Eos % (Auto) Baso % (Auto) Lymph # (Auto) [place] # (Auto) Eos # (Auto) Baso # (Auto) Abs Immat Gran (auto) Absolute Neuts (auto) Absolute Nucleated RBC Band Neutrophils % Nucleated RBC % Platelet Estimate Polychromasia Hypochromasia Microcytosis Ovalocytes Schistocytes PT INR APTT D-Dimer Sodium Potassium Chloride Carbon Dioxide Anion Gap BUN Creatinine Estim Creat Clear Calc Estimated GFR Glucose Calcium Magnesium Iron TIBC % Saturation Ferritin Total Bilirubin AST ALT Alkaline Phosphatase Total Creatine Kinase Troponin I NT-Pro-B Natriuret Pep Total Protein Albumin Amylase Lipase Vitamin B12 Folate TSH (Reflex) Urine Color Urine Appearance Urine pH Ur Specific [place] Urine Protein Urine Glucose (UA) Urine Ketones Ur Blood (Man) Urine Nitrate Urine Bilirubin Urine Urobilinogen Add Ur Microanalysis Leukocyte Esterase Rfl Urine RBC Urine WBC Ur Squamous Epith Cells Urine Bacteria Urine Casts Urine Opiates Screen Urine Methadone Screen Ur Barbiturates Screen Ur Phencyclidine Scrn Ur Amphetamine Screen U Benzodiazepines Scrn Urine Cocaine Screen U Cannabinoids Screen Influenza A (RT-PCR) Influenza B (RT-PCR) RSV (RT-PCR) SARS-CoV-2 RNA (RT-PCR) Blood Type Antibody Screen Antibody Identification Antigen Identification [place] Antigen - NEGATIVE c Antigen - POSITIVE e Antigen - POSITIVE AMY, IgG Interpret Not Performed AMY, Poly Interpret Negative AMY, Complement Interp Not Performed Enhanced Crossmatch See Detail 02/13/25 02/13/25 02/13/25 18:33 18:49 19:45 WBC RBC Hgb Hct MCV MCH MCHC RDW Plt Count MPV Immature Gran % (Auto) Neut % (Auto) Lymph % (Auto) [place] % (Auto) Eos % (Auto) Baso % (Auto) Lymph # (Auto) [place] # (Auto) Eos # (Auto) Baso # (Auto) Abs Immat Gran (auto) Absolute Neuts (auto) Absolute Nucleated RBC Band Neutrophils % Nucleated RBC % Platelet Estimate Polychromasia Hypochromasia Microcytosis Ovalocytes Schistocytes PT INR APTT D-Dimer Sodium Potassium Chloride Carbon Dioxide Anion Gap BUN Creatinine Estim Creat Clear Calc Estimated GFR Glucose Calcium Magnesium Iron TIBC % Saturation Ferritin Total Bilirubin AST ALT Alkaline Phosphatase Total Creatine Kinase Troponin I < 0.012 NT-Pro-B Natriuret Pep Total Protein Albumin Amylase Lipase Vitamin B12 Folate TSH (Reflex) Urine Color Yellow Urine Appearance Clear Urine pH 5.0 Ur Specific [place] 1.019 Urine Protein Trace Urine Glucose (UA) Negative Urine Ketones Negative Ur Blood (Man) Negative Urine Nitrate Negative Urine Bilirubin Negative Urine Urobilinogen 0.2 Add Ur Microanalysis Reviewed Leukocyte Esterase Rfl Negative Urine RBC 0-2 Urine WBC 0-5 Ur Squamous Epith Cells None seen Urine Bacteria None seen Urine Casts 11-20 Urine Opiates Screen Positive A Urine Methadone Screen Negative Ur Barbiturates Screen Negative Ur Phencyclidine Scrn Negative Ur Amphetamine Screen Negative U Benzodiazepines Scrn Negative Urine Cocaine Screen Negative U Cannabinoids Screen Negative Influenza A (RT-PCR) Negative Influenza B (RT-PCR) Negative RSV (RT-PCR) Negative SARS-CoV-2 RNA (RT-PCR) Negative Blood Type Antibody Screen Antibody Identification Antigen Identification AMY, IgG Interpret AMY, Poly Interpret AMY, Complement Interp Enhanced Crossmatch 02/13/25 02/13/25 02/14/25 20:42 23:21 10:04 WBC 7.7 RBC 4.58 Hgb 9.3 L Hct 33.4 L MCV 72.9 L MCH 20.3 L D MCHC 27.8 L RDW 21.1 H Plt Count 270 MPV 9.6 Immature Gran % (Auto) Neut % (Auto) Lymph % (Auto) [place] % (Auto) Eos % (Auto) Baso % (Auto) Lymph # (Auto) [place] # (Auto) Eos # (Auto) Baso # (Auto) Abs Immat Gran (auto) Absolute Neuts (auto) Absolute Nucleated RBC Band Neutrophils % Nucleated RBC % Platelet Estimate Polychromasia Hypochromasia Microcytosis Ovalocytes Schistocytes PT INR APTT D-Dimer 2.98 H Sodium 136 L Potassium 4.6 Chloride 108 H Carbon Dioxide 23 Anion Gap 5 BUN 25 H Creatinine 1.27 H Estim Creat Clear Calc 23 Estimated GFR 41 L Glucose 106 Calcium 8.2 L Magnesium 2.2 Iron TIBC % Saturation Ferritin Total Bilirubin 0.5 AST 24 ALT 12 Alkaline Phosphatase 103 Total Creatine Kinase 45 Troponin I < 0.012 < 0.012 NT-Pro-B Natriuret Pep 1380 H Total Protein 6.3 Albumin 3.2 L Amylase 87 Lipase 37 Vitamin B12 Folate TSH (Reflex) Urine Color Urine Appearance Urine pH Ur Specific [place] Urine Protein Urine Glucose (UA) Urine Ketones Ur Blood (Man) Urine Nitrate Urine Bilirubin Urine Urobilinogen Add Ur Microanalysis Leukocyte Esterase Rfl Urine RBC Urine WBC Ur Squamous Epith Cells Urine Bacteria Urine Casts Urine Opiates Screen Urine Methadone Screen Ur Barbiturates Screen Ur Phencyclidine Scrn Ur Amphetamine Screen U Benzodiazepines Scrn Urine Cocaine Screen U Cannabinoids Screen Influenza A (RT-PCR) Negative Influenza B (RT-PCR) Negative RSV (RT-PCR) Negative SARS-CoV-2 RNA (RT-PCR) Negative Blood Type Antibody Screen Antibody Identification Antigen Identification AMY, IgG Interpret AMY, Poly Interpret AMY, Complement Interp Enhanced Crossmatch Quality VTE Prophylaxis VTE prophylaxis: pharmacologic ordered
[2025-02-14] MEDS: ACETAMINOPHEN 325 MG TABLET 650 MG PO (13:41)
[2025-02-14] MEDS: BELLADONNA ALK/PHENOB ELIX 10 ML, MAG HYDROX/ALUMINUM HYD/SIMETH 30 ML, LIDOCAINE 2% VI... PO ×3 (14:29→20:21)
--- NOTE | 2025-02-14 16:55 | WPDGICN ---
Assessment and Plan Assessment and plan (1) Non-cardiac chest pain: Code(s): R07.89 - Other chest pain Status: Acute Assessment and Plan: Having ruled out cardiac etiologies, the most likely explanation for this episodes is esophageal spasms. This could be related to GERD old, with or without esophagitis, or a primary esophageal motility disorder such as achalasia. in the meantime, she will continue to receive intravenous pantoprazole to maximize acid suppression, and will provide GI cocktail every 3 hours, which contains an acid lidocaine and an antispasmodic for symptomatic relief. (2) Iron deficiency anemia: Code(s): D50.9 - Iron deficiency anemia, unspecified Status: Acute Assessment and Plan: Given the patient's presentation of chronic, severe chest pain, significant weight loss, and early satiety, the differential diagnosis for her iron deficiency anemia and associated symptoms is broad. It includes upper GI pathologies such as esophagitis, peptic ulcer disease, erosive gastritis, and, critically, gastric neoplasm. Additionally, given the chronic nature of her anemia, colorectal neoplasia is also high on the differential. To evaluate these possibilities, an EGD and colonoscopy are scheduled for 02/16/2025.. GI Consult Note Consult date/time: 02/14/25 16:55 Reason for consult: Chest pain - iron deficiency anemia HPI: This is a consultation for Teagan JenningsDevora Sigala, a 74-year-old woman with a significant cardiac history, including coronary artery disease (s/p stent placement and ICD) and transient atrial fibrillation, for which she is on Eliquis. She also has a history of COPD and chronic kidney disease. The patient was admitted for a three-week history of intermittent, severe, retrosternal chest pain described as coming in waves and worsening over the past 24 hours. She has also experienced early satiety and a greater than 30-pound weight loss over the last year. The reason for the consultation is the finding of severe iron deficiency anemia. On admission, her hemoglobin was 6.8, her iron saturation was 7%, and her ferritin was 5.23. This is a progression from her hemoglobin of 8.0 and iron saturation of 5% in March 2024. She was transfused with two units of packed red blood cells, which increased her hemoglobin to 9.3. Review of Systems Review of Systems: All systems reviewed & are unremarkable except as noted in HPI and below PMFSH Past Medical History Medical History (Updated 02/14/25 @ 17:00 by Jack Mack MD) Bladder neoplasm of uncertain malignant potential CKD (chronic kidney disease) stage 3, GFR 30-59 ml/min Carotid stenosis Malingering Hyperlipidemia Hypertension GI bleed Gastroesophageal reflux disease Cerebrovascular accident Per patient reports, she had 2 or 3 strokes, the last being in April 2019 although not well documented. Chronic obstructive pulmonary disease Coronary artery disease Cerebral atherosclerosis Lupus Patient states she has lupus, not well documented. Fibromyalgia Questionable history of fibromyalgia Anxiety Depression Systemic lupus erythematosus Hyperpituitarism Left foot drop Osteoporosis Bladder cancer Arthritis Renal cancer Gastric ulcer Bronchitis Myocardial infarction Peripheral neuropathy Meningitis Surgical History Surgical History (Updated 02/13/25 @ 20:35 by Amina Worthy DO) History of incision and drainage (06/2022) Right groin abscess. Right groin abscess had been due to perforation of bowel into the incarcerated hernia earlier in the same hospitalization History of resection of small bowel (06/20/22) Small-bowel resection with repair of incarcerated right inguinal hernia. History of bilateral breast reduction surgery History of cardiac defibrillator placement Reportedly for ventricular tachycardia. History of heart artery stent History of hysterectomy History of cholecystectomy History of tonsillectomy History of cardiac catheterization Family History Family History Father Hypertension Mother Hypertension Family history of cardiovascular disease Social History Social History (Updated 02/14/25 @ 07:36 by Amina Worthy DO) Social History: Surrogate medical decision maker: Maxi Carrasquillo, lexa. Code status: DNR/DNI (per patient request) Smoking packs per day: 1 Smoking cigarettes per day: 20.0 Years smoked: 45 Smoking pack-years: 45.00 Smoking status: Current every day smoker Tobacco type: cigarettes Second hand tobacco smoke exposure: Yes Alcohol intake: former Substance use: never Substance use type: does not use Do You Feel Safe in your Home?: Yes Lack of Transportation: No Lack of Food: Never True Current Housing: I Have Housing Concerned About Future Housing: No Difficulty Paying Gas/Electric Bills: No Difficulty Paying for Meds: No Currently Unemployed: No Education: Associate Degree Difficulty w/ Childcare or Family Care: No Additional living arrangements comments: with three children. Lives in [place]. Two of her sons live with her. 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 Spiritual care concerns: No Agree to blood products: Yes Meds Home Medications and Allergies Home Medications ?Medication ?Instructions ?Recorded ?Confirmed ?Type prednisone 10 mg tablet 5 mg PO DAILY Shortness Of Breath 09/20/20 02/14/25 History Or Wheezing albuterol sulfate 90 mcg/actuation 90 mcg inhalation QID PRN 08/16/22 02/14/25 History aerosol inhaler Shortness Of Breath gabapentin 100 mg capsule 100 mg PO DAILY 08/16/22 02/14/25 History losartan 100 mg tablet 100 mg PO DAILY 08/16/22 02/14/25 History mirtazapine 15 mg tablet 15 mg PO QHS 08/16/22 02/14/25 History naproxen 500 mg tablet 500 mg PO Q12H 08/16/22 02/14/25 History nitroglycerin 0.4 mg sublingual 0.4 mg sublingual BID PRN Chest 08/16/22 02/14/25 History tablet Pain sumatriptan succinate 100 mg tablet 100 mg PO BID PRN Headache 08/16/22 02/14/25 History aspirin 81 mg tablet,delayed 81 mg PO DAILY 11/25/22 02/14/25 History release nortriptyline 10 mg capsule 10 mg PO HS 08/23/23 02/14/25 History tizanidine 4 mg tablet 4 mg PO QID PRN Back Pain 08/23/23 02/14/25 History trazodone 100 mg tablet 100 mg PO HS 08/23/23 02/14/25 History apixaban 2.5 mg tablet (Eliquis) 2.5 mg PO BID 03/14/24 02/14/25 History oxycodone-acetaminophen 7.5 mg-325 1 tablet PO BID PRN Pain 03/14/24 02/14/25 History mg tablet pantoprazole 40 mg tablet,delayed 40 mg PO QAM #15 tabs 03/15/24 02/14/25 Rx release azithromycin 250 mg tablet 250 mg PO DAILY 5 days #5 tabs 05/08/24 02/14/25 Rx (Zithromax) prednisone 20 mg tablet 20 mg PO BID 3 days #6 tabs 05/08/24 02/14/25 Rx ondansetron 4 mg disintegrating 4 mg PO Q8H PRN nausea and 05/24/24 02/14/25 Rx tablet vomiting #14 tabs Allergies Allergy/AdvReac Type Severity Reaction Status Date / Time Penicillins Allergy Severe Swelling Verified 05/07/24 13:41 of Lip/Tongue/Throat Sulfa (Sulfonamide Allergy Unknown Unknown Verified 05/07/24 13:41 Antibiotics) amphetamine (From Adderall) Allergy Unknown Verified 05/07/24 19:04 dextroamphetamine (From Allergy Unknown Verified 05/07/24 19:04 Adderall) lorazepam (From Ativan) Allergy Agitated Verified 05/07/24 14:00 Vital Signs Vital Signs - 24 hr 02/13/25 17:32 02/13/25 18:03 02/13/25 18:43 Temperature Pulse Rate 83 77 82 Respiratory Rate 16 19 Blood Pressure 121/60 116/54 L Pulse Oximetry 98 100 Oxygen Delivery Oxygen Flow Rate 02/13/25 18:58 02/13/25 19:00 02/13/25 19:46 Temperature Pulse Rate 76 82 Respiratory Rate 24 H 24 H Blood Pressure Pulse Oximetry 99 98 Oxygen Delivery Room Air Oxygen Flow Rate 02/13/25 20:00 02/13/25 20:16 02/13/25 20:56 Temperature Pulse Rate 80 76 77 Respiratory Rate 27 H 25 H 17 Blood Pressure 122/80 Pulse Oximetry 97 Oxygen Delivery Oxygen Flow Rate 02/13/25 21:33 02/13/25 21:50 02/13/25 23:47 Temperature 98.2 F Pulse Rate 78 77 78 Respiratory Rate 18 20 20 Blood Pressure 113/66 113/66 128/46 L Pulse Oximetry 95 94 96 Oxygen Delivery Oxygen Flow Rate 02/14/25 00:00 02/14/25 00:00 02/14/25 02:00 Temperature Pulse Rate 77 80 Respiratory Rate Blood Pressure Pulse Oximetry Oxygen Delivery Room Air Oxygen Flow Rate 02/14/25 04:00 02/14/25 04:00 02/14/25 04:00 Temperature 98 F Pulse Rate 75 74 Respiratory Rate 20 Blood Pressure 125/40 L Pulse Oximetry 95 Oxygen Delivery Room Air Oxygen Flow Rate 02/14/25 06:00 02/14/25 06:32 02/14/25 06:50 Temperature 99.0 F 98.2 F Pulse Rate 132 H 78 75 Respiratory Rate 16 16 Blood Pressure 128/55 L 134/50 L Pulse Oximetry 95 91 Oxygen Delivery Oxygen Flow Rate 02/14/25 07:45 02/14/25 07:50 02/14/25 08:00 Temperature 98.8 F Pulse Rate 79 83 Respiratory Rate 18 Blood Pressure 137/60 Pulse Oximetry 94 94 Oxygen Delivery Room Air Oxygen Flow Rate 02/14/25 08:09 02/14/25 08:50 02/14/25 09:25 Temperature 98.8 F 98.6 F 99.1 F Pulse Rate 79 153 H 81 Respiratory Rate 18 20 15 Blood Pressure 137/60 111/65 143/78 H Pulse Oximetry 94 92 90 Oxygen Delivery Oxygen Flow Rate 02/14/25 09:43 02/14/25 09:44 02/14/25 09:50 Temperature Pulse Rate 78 86 Respiratory Rate 16 16 Blood Pressure Pulse Oximetry 92 Oxygen Delivery Nasal Cannula Oxygen Flow Rate 4 02/14/25 10:00 02/14/25 11:53 02/14/25 12:00 Temperature 98.5 F Pulse Rate 81 83 Respiratory Rate 16 Blood Pressure 120/62 Pulse Oximetry 92 92 Oxygen Delivery Room Air Oxygen Flow Rate 02/14/25 12:00 02/14/25 13:50 02/14/25 13:57 Temperature Pulse Rate 85 80 91 Respiratory Rate 20 24 H Blood Pressure Pulse Oximetry Oxygen Delivery Oxygen Flow Rate 02/14/25 14:00 02/14/25 15:03 02/14/25 16:00 Temperature 98.4 F Pulse Rate 88 90 Respiratory Rate 18 Blood Pressure 127/59 L Pulse Oximetry 92 Oxygen Delivery Room Air Oxygen Flow Rate 02/14/25 16:00 Temperature Pulse Rate 91 Respiratory Rate Blood Pressure Pulse Oximetry Oxygen Delivery Oxygen Flow Rate Exam Narrative: Alert and Ox3, cooperative. Complaining of paroxismal chest pain while being interviewed. Looks chronically ill, pale. Abd: soft, non tender, no hepatomegaly. Results Labs 02/14/25 10:04 02/14/25 10:04 Labs: Short CBC 02/13/25 02/14/25 Range/Units 17:00 10:04 WBC 9.5 7.7 (4.5-10.0) K/mm3 Hgb 6.8 L* D 9.3 L (12.0-15.0) g/dL Hct 25.3 L 33.4 L (37.0-47.0) % Plt Count 225 270 (150-375) k/mm3 BMP 02/13/25 02/14/25 17:00 10:04 Sodium 135 L 136 L Potassium 4.5 4.6 Chloride 105 108 H Carbon Dioxide 24 23 BUN 24 H 25 H Creatinine 1.50 H 1.27 H Glucose 94 106 Calcium 8.1 L 8.2 L Cardiac Enzymes 02/13/25 02/13/25 02/13/25 Range/Units 17:00 19:45 23:21 Total Creatine Kinase (30-135) U/L Troponin I < 0.012 < 0.012 < 0.012 (0.000-0.034) ng/mL 02/14/25 Range/Units 10:04 Total Creatine Kinase 45 (30-135) U/L Troponin I < 0.012 (0.000-0.034) ng/mL Liver Function 02/13/25 02/14/25 Range/Units 17:00 10:04 Total Bilirubin 0.1 L 0.5 (0.2-1.3) mg/dL AST 31 24 (14-36) U/L ALT 12 12 (6-35) U/L Alkaline Phosphatase 87 103 (38-126) U/L Albumin 3.3 L 3.2 L (3.5-5.1) g/dL Urine 02/13/25 Range/Units 18:49 Urine Color Yellow (Yellow) Urine Appearance Clear (Clear) Urine pH 5.0 (5.0-9.0) Ur Specific [place] 1.019 (1.001-1.035) Urine Protein Trace (Negative) mg/dL Urine Glucose (UA) Negative (Negative) mg/dL
[2025-02-14] MEDS: ONDANSETRON INJ 4 MG/2 ML VIAL IV PUSH ×2 (16:57→21:13)
[2025-02-14] MEDS: METOPROLOL TARTRATE 12.5 MG TABLET PO (20:10)
[2025-02-14] MEDS: MIRTAZAPINE 15 MG TABLET PO (20:10)
[2025-02-14] MEDS: MELATONIN 5 MG TABLET PO (20:10)
[2025-02-14] MEDS: TRIAMCINOLONE ACET 0.1% OINT 15 GM TUBE 1 APPLIC TOPICAL (20:21)
[2025-02-15] VITALS (9 sets, daily range): BP systolic 126–136; BP diastolic 64–77; PULSE 70–72; RESP 16–18; TEMP 36.4–36.6; O2SAT 94–100
--- NOTE | 2025-02-15 00:56 | PC.NURSE ---
0040 Loud noise heard from room, this RN and jenny Ceronboarding house manager immediately went to room. Patient standing behind the HOB I have to pee. I hit my back. Upon assessment of patient's back - no red smith were noted. Patient assisted back to bed and placed on a bedpan. Care handed over to MACHO Ashton and DORA Lopez.
[2025-02-15] MEDS: IPRATROPIUM 0.5 MG/ALBUTEROL SULFATE 2.5 MG AMPUL.NEB 3 ML INHALATION ×2 (02:14→08:31)
--- NOTE | 2025-02-15 02:14 | PCRCNOTE ---
0200: Patient refused treatment
[2025-02-15 04:24] LABS: Hematocrit 25.5 % (37.0-47.0); Hemoglobin 7.3 g/dL (12.0-15.0); Immature Granulocyte Percent A 0.8 % (0-0.5); Lymphocytes Absolute Auto 0.48 K/mm3 (0.9-3.2); Mean Corpuscular HGB Conc 28.6 g/dl (32-36); Mean Corpuscular Hemoglobin 20.8 pg (26-34); Mean Corpuscular Volume 72.6 fl (80-100); Nucleated Red Blood Cells Absolute Auto 0.000 K/mm3 (0.0-0.012); Nucleated Red Blood Cells Perc 0.0 % (0.0-0.2); Platelet Count Result 241 k/mm3 (150-375); Red Blood Count 3.51 M/mm3 (4.2-5.4); White Blood Count 9.2 K/mm3 (4.5-10.0)
[2025-02-15 04:51] LABS: Anion Gap 7 mmol/L (4-12); Blood Urea Nitrogen 27 mg/dL (7-17); Calcium 8.6 mg/dL (8.4-10.2); Carbon Dioxide 26 mmol/L (22-30); Chloride 104 mmol/L (98-107); Estimated CRCL calculation 21 ml/min; Estimated Glomerular Filt Rate 38; Glucose 138 mg/dL (65-110); Potassium 4.6 mmol/L (3.4-5.0); Sodium 137 mmol/L (137-145)
[2025-02-15 05:10] LABS: Anisocytosis 2+; Hypochromasia 2+; Microcytosis 2+ (NORMAL)
[2025-02-15 05:11] LABS: Tear Drop Cells Occasional
[2025-02-15 05:12] LABS: Ovalocytes 1+; Polychromasia Occasional; Schistocytes None Seen
[2025-02-15] MEDS: PANTOPRAZOLE SODIUM IV 40 MG VIAL IV PUSH (09:36)
[2025-02-15] MEDS: METOPROLOL TARTRATE 12.5 MG TABLET PO (09:36)
[2025-02-15] MEDS: ATORVASTATIN 40 MG TABLET PO (09:36)
[2025-02-15] MEDS: GABAPENTIN 100 MG CAPSULE PO (09:37)
[2025-02-15] MEDS: LIDOCAINE 5% PATCH 1 PATCH TRANSDERM (09:37)
[2025-02-15] MEDS: BELLADONNA ALK/PHENOB ELIX 10 ML, MAG HYDROX/ALUMINUM HYD/SIMETH 30 ML, LIDOCAINE 2% VI... PO (09:38)
[2025-02-15] MEDS: ASPIRIN 81 MG ENTERIC TABLET PO (09:38)
--- NOTE | 2025-02-15 10:06 | PC.NURSE ---
Medications given to patient as ordered. Patient started coughing and continued to cough forcefully. Prior to this the patient was able to drink without coughing and showed no signs of aspiration. Because of the persistent cough this RN removed the patients drinks and discussed with her the reasoning of which included possible aspiration. The patient stated that she could not breath, however she was talking without difficulty during this time and respirations were within normal range. The patient became angry and started hitting her side table, stating that she I don't like her, I don't want her as my nurse. This RN discussed with the patient that the doctor was on the floor and would be in the room soon. The patient continued to act angry, hitting her side table, began coughing again and stating that she has chest pain. This RN informed the doctor of the patient's current condition and behavior.
--- NOTE | 2025-02-15 10:30 | PC.NURSE ---
Bladder scan completed and the CCT noted that 294mL were noted in bladder.
[2025-02-15] MEDS: TRIAMCINOLONE ACET 0.1% OINT 15 GM TUBE 1 APPLIC TOPICAL (10:35)
--- NOTE | 2025-02-15 10:42 | PC.NURSE ---
Patient continues to force cough. She has been on her call light every 30 seconds or less. When this nurse goes into the room, the patient is rude, cussing and states that no one is willing to help her. At one point the patient stated that she was going to pass out to the sitter. She then fell over to her side. She did not pass out. This nurse tried to discuss plan of care with the patient including speech therapy, chest x-ray, and transfer off the floor. The patient is rude and hateful to both this nurse and the sitter at the bedside. She has been told that she can not have anything to eat or drink related to her continuous cough, however she continues to ask for food and drink. She gets angry when told she can't have it. She states that she has chest pain again after she is told no. She does continue to cough very forcefully and this was discussed with her that her chest pain could be related to her continuous coughing. The patient is able to stop coughing when she is talking or yelling at the team. This patient is noted to be very difficult to take care of and is unwilling to work with us at this time.
--- NOTE | 2025-02-15 12:41 | PM.PNCARD ---
Progress Note: A&P Assessment and Plan (1) Chest pain: Qualifiers: Chest pain type: chest pain on breathing Qualified Code(s): R07.1 - Chest pain on breathing Code(s): R07.9 - Chest pain, unspecified Status: Acute Assessment and Plan: Patient not seen today as she left AMA Please see cardiology consult note from 02/14 Subjective Date/time seen: 02/15/25 12:41 Interval history: Reason for encounter: Chest pain Interval history: Patient left AMA today. Objective Data Vital Signs Vital Signs: Vital Signs - 24 hr 02/14/25 13:50 02/14/25 13:57 02/14/25 14:00 Temperature Pulse Rate 80 91 88 Respiratory Rate 20 24 H Blood Pressure Pulse Oximetry Oxygen Delivery Oxygen Flow Rate 02/14/25 15:03 02/14/25 16:00 02/14/25 16:00 Temperature 36.9 C Pulse Rate 90 91 Respiratory Rate 18 Blood Pressure 127/59 L Pulse Oximetry 92 Oxygen Delivery Room Air Oxygen Flow Rate 02/14/25 18:00 02/14/25 20:00 02/14/25 20:00 Temperature 36.7 C Pulse Rate 82 79 76 Respiratory Rate 18 16 Blood Pressure 109/53 L Pulse Oximetry 99 93 Oxygen Delivery Nasal Cannula Oxygen Flow Rate 2 02/14/25 20:00 02/14/25 20:24 02/14/25 20:30 Temperature Pulse Rate 76 102 H 102 H Respiratory Rate 16 16 Blood Pressure Pulse Oximetry Oxygen Delivery Oxygen Flow Rate 02/14/25 20:31 02/14/25 23:41 02/15/25 00:00 Temperature 36.6 C Pulse Rate 70 70 Respiratory Rate 18 Blood Pressure 111/41 L Pulse Oximetry 93 100 Oxygen Delivery Nasal Cannula Oxygen Flow Rate 2 02/15/25 00:00 02/15/25 04:00 02/15/25 04:00 Temperature Pulse Rate 70 70 70 Respiratory Rate 18 18 Blood Pressure Pulse Oximetry 100 100 Oxygen Delivery Nasal Cannula Nasal Cannula Oxygen Flow Rate 1 1 02/15/25 04:00 02/15/25 05:52 02/15/25 07:45 Temperature 36.6 C 36.4 C Pulse Rate 70 70 72 Respiratory Rate 16 16 Blood Pressure 126/77 136/64 Pulse Oximetry 95 98 Oxygen Delivery Oxygen Flow Rate 02/15/25 08:00 02/15/25 08:00 02/15/25 08:31 Temperature Pulse Rate 70 70 Respiratory Rate 16 Blood Pressure Pulse Oximetry 94 94 Oxygen Delivery Room Air Room Air Oxygen Flow Rate 02/15/25 08:31 02/15/25 08:39 02/15/25 09:36 Temperature Pulse Rate 70 70 70 Respiratory Rate 16 16 Blood Pressure Pulse Oximetry Oxygen Delivery Oxygen Flow Rate 02/15/25 10:00 Temperature Pulse Rate 70 Respiratory Rate Blood Pressure Pulse Oximetry Oxygen Delivery Oxygen Flow Rate Intake/Output Intake/Output: Intake & Output 02/12/25 02/13/25 02/14/25 02/15/25 23:59 23:59 23:59 23:59 Intake Total 1080 480 Output Total 1 850 Balance 1079 -370 Meds/Results Medications: Active Medications Generic Name Dose Route Start Last Admin Trade Name Freq PRN Reason Stop Dose Admin Acetaminophen 650 mg 02/13/25 18:43 02/14/25 13:41 Acetaminophen 325 Mg Tablet PO 650 mg Q4H PRN Administration Mild Pain (1-3) or Fever Al Hydrox/Mg Hydrox/Simethicone 30 ml 02/13/25 20:37 Mag Hydrox/Al Hydrox/Simeth 30 Ml Udc PO Q6H PRN Indigestion Albuterol/Ipratropium 3 ml 02/14/25 09:50 02/15/25 08:31 Ipratropium 0.5 Mg/Albuterol Sulfate 2.5 Mg Ampul.Neb 3 Ml INHALATION 3 ml Q6HRT KENDY Administration Aspirin 81 mg 02/15/25 09:00 02/15/25 09:38 Aspirin 81 Mg Enteric Tablet PO 81 mg QAM KENDY Administration Atorvastatin Calcium 40 mg 02/15/25 09:00 02/15/25 09:36 Atorvastatin 40 Mg Tablet PO 40 mg DAILY KENDY Administration Belladonna Alkaloids/ 0 ml 02/14/25 18:00 02/15/25 12:33 Phenobarbital 10 ml/ Al Hydrox PO Not Given /Mg Hydrox/Simethicone 30 ml/ Q3HR KENDY Lidocaine HCl 10 ml Docusate Sodium 100 mg 02/13/25 20:37 Docusate Sodium 100 Mg Capsule PO Q12H PRN Constipation Gabapentin 100 mg 02/14/25 09:00 02/15/25 09:37 Gabapentin 100 Mg Capsule PO 100 mg DAILY KENDY Administration Lidocaine 1 patch 02/14/25 09:00 02/15/25 09:37 Lidocaine 5% Patch TRANSDERM 1 patch DAILY KENDY Administration Melatonin 5 mg 02/14/25 21:00 02/14/25 20:10 Melatonin 5 Mg Tablet PO 5 mg HS KENDY Administration Metoprolol Tartrate 12.5 mg 02/14/25 21:00 02/15/25 09:36 Metoprolol Tartrate 12.5 Mg Tablet PO 12.5 mg Q12HR KENDY Administration Mirtazapine 15 mg 02/14/25 21:00 02/14/25 20:10 Mirtazapine 15 Mg Tablet PO 15 mg QHS KENDY Administration Ondansetron HCl 4 mg 02/13/25 18:43 02/14/25 21:13 Ondansetron Inj 4 Mg/2 Ml Vial IV PUSH 4 mg Q4H PRN Administration Nausea Pantoprazole Sodium 40 mg 02/13/25 21:20 02/15/25 09:36 Pantoprazole Sodium Iv 40 Mg Vial IV PUSH 40 mg Q12HR KENDY Administration Perflutren Lipid Microsphere 0 ml 02/14/25 12:16 Perflutren Lipid Microspheres 1.5 Ml Vial Diluted To 10 Ml Total Volume IV PUSH 02/17/25 12:16 ONCE PRN adequate visualization Protocol Polyethylene Glycol 119 gm 02/15/25 20:00 Polyethylene Glycol 3350 238 Gm Bottle PO 02/16/25 05:01 BID@0500,2000 [facility] Triamcinolone Acetonide 1 applic 02/14/25 09:00 02/15/25 10:35 Triamcinolone Acet 0.1% Oint 15 Gm Tube TOPICAL 1 applic Q12HR KENDY Administration Radiology Results: ITS Impressions Pulmonary Perfusion Imaging 02/14/25 15:32 IMPRESSION: 1. Nondiagnostic (low or intermediate) probability for pulmonary embolism. Abdomen/Pelvis CT 02/14/25 16:07 IMPRESSION: 1. No etiology for the patient's symptoms. 2. Emphysema. Chest X-Ray 02/15/25 11:09 IMPRESSION: 1. Mild retrocardiac atelectasis and/or airspace disease, with small pleural effusion. Labs Labs: Laboratory Results - last 24 hr 02/15/25 04:09 WBC 9.2 RBC 3.51 L Hgb 7.3 L Hct 25.5 L MCV 72.6 L MCH 20.8 L MCHC 28.6 L RDW 20.7 H Plt Count 241 MPV 9.9 Immature Gran % (Auto) 0.8 H Neut % (Auto) 87.5 H Lymph % (Auto) 5.2 L [place] % (Auto) 6.4 Eos % (Auto) 0.0 Baso % (Auto) 0.1 L Lymph # (Auto) 0.48 L [place] # (Auto) 0.6 Eos # (Auto) 0.0 Baso # (Auto) 0.0 Abs Immat Gran (auto) 0.07 H Absolute Neuts (auto) 8.1 H Absolute Nucleated RBC 0.000 Band Neutrophils % Not Reportable Nucleated RBC % 0.0 Platelet Estimate Adequate Polychromasia Occasional Hypochromasia 2+ Anisocytosis 2+ Microcytosis 2+ Tear Drop Cells Occasional Ovalocytes 1+ Schistocytes None seen Sodium 137 Potassium 4.6 Chloride 104 Carbon Dioxide 26 Anion Gap 7 BUN 27 H Creatinine 1.36 H Estim Creat Clear Calc 21 Estimated GFR 38 L Glucose 138 H Calcium 8.6
--- NOTE | 2025-02-15 13:07 | PM.DS ---
DS: Admitting Diagnosis Discharge Date 02/15/25 Patient is leaving AMA Admitting Diagnosis Chest pain DS: Discharge Diagnosis Discharge Diagnosis (1) Anxiety: Code(s): F41.9 - Anxiety disorder, unspecified Status: Acute (2) Malingering: Code(s): Z76.5 - Malingerer [conscious simulation] Status: Acute (3) HTN (hypertension): Qualifiers: Hypertension type: unspecified Qualified Code(s): I10 - Essential (primary) hypertension Code(s): I10 - Essential (primary) hypertension Status: Chronic (4) Non-cardiac chest pain: Code(s): R07.89 - Other chest pain Status: Acute (5) Protein calorie malnutrition: Qualifiers: Protein-calorie malnutrition severity: severe Qualified Code(s): E43 - Unspecified severe protein-calorie malnutrition Code(s): E46 - Unspecified protein-calorie malnutrition Status: Acute (6) MARIELA (acute kidney injury): Code(s): N17.9 - Acute kidney failure, unspecified Status: Acute DS: Summary Hospital Course Reason for hospitalization: Chest pain Hospital Course: 74-year-old female with a past medical history of coronary artery disease with prior cardiac stent, ICD placement, hypertension, CVA, COPD, GERD, chronic kidney disease and malingering who presented to the ER with reports of chest pain. The patient is historically noncompliant with medical management is not taking any of her prior prescribed medications because she does not believe there needed. In the ER he rectal exam was performed and the Hemoccult was weakly positive. Patient does have chronic protein malnutrition and has chronic dietary deficiencies in iron. Cardiology was consulted for chest pain advised for conservative management with aspirin, Lipitor, metoprolol, Eliquis. Patient was found to have acute on chronic anemia with Hemoccult-positive, received 1 unit of PRBC, GI was consulted plan was for EGD/colonoscopy. Patient has had very disruptive behavior, noncooperative with the nursing staff, agitated/swelling behavior. Patient has decided to leave against medical advise. She understands the consequences of untreated medical ailments. She has a tendency of leaving AMA, she has done this in the past as well. Time Spent with Patient Time attestation: Total time spent providing and/or coordinating discharge services:22 mins Exam Narrative: Patient is leaving AMA DS: Data Data Completed and Pending Labs on day of discharge: Labs from last 24 hours 02/15/25 04:09 WBC 9.2 RBC 3.51 L Hgb 7.3 L Hct 25.5 L MCV 72.6 L MCH 20.8 L MCHC 28.6 L RDW 20.7 H Plt Count 241 MPV 9.9 Immature Gran % (Auto) 0.8 H Neut % (Auto) 87.5 H Lymph % (Auto) 5.2 L [place] % (Auto) 6.4 Eos % (Auto) 0.0 Baso % (Auto) 0.1 L Lymph # (Auto) 0.48 L [place] # (Auto) 0.6 Eos # (Auto) 0.0 Baso # (Auto) 0.0 Abs Immat Gran (auto) 0.07 H Absolute Neuts (auto) 8.1 H Absolute Nucleated RBC 0.000 Band Neutrophils % Not Reportable Nucleated RBC % 0.0 Platelet Estimate Adequate Polychromasia Occasional Hypochromasia 2+ Anisocytosis 2+ Microcytosis 2+ Tear Drop Cells Occasional Ovalocytes 1+ Schistocytes None seen Sodium 137 Potassium 4.6 Chloride 104 Carbon Dioxide 26 Anion Gap 7 BUN 27 H Creatinine 1.36 H Estim Creat Clear Calc 21 Estimated GFR 38 L Glucose 138 H Calcium 8.6 Discharge Plan Discharge Attending physician on discharge: Lana Terry Consulting providers: Samantha Diaz; Jack Mack Discharging Clinician: Lana Terry Patient Disposition: Home Activity: as tolerated Diet: as tolerated Patient Instructions: Antibiotic Form, Anemia (DC) Patient Language: Peruvian Stand Alone Forms: General Discharge Information Follow-up/Referrals: Josse,VALENTIN Roberts [Primary Care Provider, [facility]] - Call for Appointment Discharge Medications: Continued sumatriptan succinate 100 mg tablet 100 mg PO BID PRN (Reason: Headache) nitroglycerin 0.4 mg tablet, sublingual 0.4 mg sublingual BID PRN (Reason: Chest Pain) mirtazapine 15 mg tablet 15 mg PO QHS gabapentin 100 mg capsule 100 mg PO DAILY albuterol sulfate 90 mcg/actuation HFA aerosol inhaler 90 mcg inhalation QID PRN (Reason: Shortness Of Breath) losartan 100 mg tablet 100 mg PO DAILY naproxen 500 mg tablet 500 mg PO Q12H azithromycin [Zithromax] 250 mg tablet 250 mg PO DAILY 5 Days Qty: 5 0RF prednisone 20 mg tablet 20 mg PO BID 3 Days Qty: 6 0RF prednisone 10 mg tablet 5 mg PO DAILY Rx Instructions: 1/2 Tab every day aspirin 81 mg Tablet,Delayed Release (Dr/Ec) 81 mg PO DAILY tizanidine 4 mg tablet 4 mg PO QID PRN (Reason: Back Pain) nortriptyline 10 mg capsule 10 mg PO HS trazodone 100 mg tablet 100 mg PO HS Eliquis 2.5 mg tablet 2.5 mg PO BID oxycodone-acetaminophen 7.5-325 mg tablet 1 tablet PO BID PRN (Reason: Pain) pantoprazole 40 mg Tablet,Delayed Release (Dr/Ec) 40 mg PO QAM Qty: 15 0RF ondansetron 4 mg tablet,disintegrating 4 mg PO Q8H PRN (Reason: nausea and vomiting) Qty: 14 0RF Date of admission: 02/15/25 08:16 Primary Care Provider: Josse,Wesley Orozco Admitting Provider: Abby Limon Attending physician on admission: Abby Limon Condition: Stable
--- NOTE | 2025-02-15 13:14 | PCSTNOTE ---
VIDEO PRESENTATION OPERATOR attempted to complete bedside swallow evaluation; nursing reports patient left against medical advice.
--- NOTE | 2025-02-15 14:10 | PC.NURSE ---
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 Another nurse went into the room on behalf of this RN to see exactly what the patient wants. The patient stated that she wanted to leave, when the nurse presented her with the AMA paperwork, the patient stated that she was going to Wait for a little while. This RN went into the room where the patient was complaining of pain in her chest. This RN explained to the patient that a work up of her cardiovascular system had been completed and her cardiac enzymes were negative. This RN further explained to the patient that it was probably related to the coughing she was doing earlier in the morning. The patient requested pain medication for the pain. This RN explained to the patient that she did not have pain medications ordered, but that I could let the doctor know that she was complaining of pain. The patient stated ok. This RN left the room and as soon as I exited the doorway the patient put her call light on again. I went back into the room. The patient requested to know how I was going to help her. Explained to the patient that based on her initial complaints I would need to talk to the doctor and that I was trying to do that but you put the call light right back on. She then asked is the doctor going to do anything for me? This RN explained to her that her plan as we had previously discussed and the doctor discussed with her was that she have an EGD and colonoscopy tomorrow. The patient stated ok. This behavior of putting her call light right back on as soon as I left the room continued for the next approximately 45 min. Myself and other nurses tried to assist the patient. She continued to act belligerent, call out, and continuously tried to get out of bed. Security walked by and heard the commotion and came into the room to assist. The patient threatened to sergio this RN and the hospital. The patient kept saying she wanted to leave. Another RN read her the AMA paperwork, but she refused to sign unless we gave her a ride. This RN and another RN tried to call her son Maxi for further assistance. This RN eventually got ahold of the patients son Иван. Discussed with Иван the patients behavior, her desires to leave AMA and the fact that she needed a ride home. He verbalized understanding on the phone and stated that her behavior at home was not good either, but that he would call his brother Maxi to come and pick her up. A few minutes after speaking with Иван, Maxi called. This RN described to him the patients behavior, complaints, and desires to leave. This RN informed Maxi that the patient should follow up with her primary care physician if she leaves against medical advice and that they could probably refer her to a GI doctor for outpatient colonoscopy/EGD. Maxi stated that she No longer has a primary care doctor because she wouldn't keep her appointments. This RN informed him to try and get another doctor if he is able to. He verbalized understanding and stated that he would be here to get his mom in about 30 min. This RN went into the patients room to let her know of the conversation with her son Maxi. Patient still refused to sign AMA paperwork until we provided her with her personal belongings. This RN gave her her bag of belongings and the patient signed the paperwork. Security remained at the bedside. The patients IV was removed from her right forearm and a 2x2 was placed on the patient. The patient was instructed that she could get dressed and leave. She then said to security, see she is kicking me out. Security said, you signed the paperwork to leave. She then said I am getting a university relations vice president and suing this place. No comments were made at this time. This RN left the room and security stepped out of the room while the patient dressed. Upon leaving the room the patient walked out to the hallway and asked where the front door was. Security stated that they would show her the way. She complained of being unsteady. She followed security off the floor.
--- OUTSIDE RECORDS SUMMARY | 2025-02-16 08:45 | XMS_ITS | Clinical Summary ---
Author Organization [facility] Address [address] [place] [address] Care Team Providers Care Powerbuilder Name Role Phone Cm Loaiza APRN-ENTERPRISE SYSTEMS MANAGER Primary Care Provider Source Comments [facility],non-owned Affiliates and Associated Physician Practices is amultiple site organization consisting of ambulatory clinics and hospital sitesin [place], [place], [place] and [place]. This disclosure is being madepursuant to the Care Everywhere program and may not contain all information available regarding this patient. Last updated 18.[facility] [employer] Allergies Active Allergy Reactions Criticality Noted Date [...] Recorded Patient Health Questionnaire-2 Score 0 05/02/2024 [facility] [place] of Occupat ional Health - Occupational Stress [...] any time in the past 12 m [facility], were you homeless or living in a longterm (including now)? Patient declined 04/29/2024 Comments No Sex and Gender Information Value Date Recorded Sex Assigned at Not on file Legal Sex Female 6:19 AM AIRCRAFT SYSTEMS TECHNICIAN Gender Identity Not on file Sexual Orientation Not on file Last Filed Vital Signs Vital Sign Reading Time Taken Comments Blood Pressure 149/60 05/03/2024 7:50 AM AIRCRAFT SYSTEMS TECHNICIAN Pulse 76 05/03/2024 8:09 AM AIRCRAFT SYSTEMS TECHNICIAN Temperature 36.7 C (98.1 F) 05/03/2024 7:50 AM AIRCRAFT SYSTEMS TECHNICIAN Respiratory Rate 18 05/03/2024 8:09 AM AIRCRAFT SYSTEMS TECHNICIAN Oxygen Saturation 94% 05/03/2024 8:09 AM AIRCRAFT SYSTEMS TECHNICIAN Inhaled Oxygen Concentration - - Weight 47 kg (103 lb 9.6 oz) 04/28/2024 9:50 PM AIRCRAFT SYSTEMS TECHNICIAN Height 162.6 cm (5' 4) 04/28/2024 1:58 PM AIRCRAFT SYSTEMS TECHNICIAN Body Mass Index 17.78 04/28/2024 1:58 PM AIRCRAFT SYSTEMS TECHNICIAN Plan of Treatment Health Maintenance Due Date [...] this topic Medical Devices Implanted Type Area Lead Assistant Manager Device Identifier Shelf Expiration Date Model / Serial / Lot Biotronik Iperia 7 Dr-T- 6 Implanted:06/2015 (Quantity not on file) ICD Left: Chest / [id number] / Implant Lead Rv [id number]-1 07/03/2015 Implanted:06/2015 (Quantity not on file) Implant Lead Ventricle Biotronik [id number] / [id number] / Implant Lead-[id number] /[id number] Implanted:06/2015 (Quantity not on file) Implant Lead Atrium Biotronik [id number] / [id number] / Procedures Procedure Name Priority Date/Time Associated [...] CDT Narrative Resulting Agency Comment Performed By [facility] - [facility] [address] [place] [address] us Nathanael Callejas MD LAB - CHEMISTRY ORDERABLES F inal Result Performing Organization Address City/State/[facility] Co de Phone Number [facility] [address] [place] [address] from Last 3 Months or Most Recently [...] 11:58 AM 09/29/2020 5:54 PM Care Teams Powerbuilder Relationship Specialty Start Date End Date Cm Loaiza, ERNIE-ENTERPRISE SYSTEMS MANAGER [address] [place] [id number] PCP - General Nurse Practitioner 02/09/21
--- OUTSIDE RECORDS SUMMARY | 2025-02-16 08:45 | XMS_ITS | Encounter Summary ---
Author Organization [facility] Address [address] [place] [address] Care Team Providers Care Construction Technician Name Role Phone Thierry Chadwick DO Primary Care Provider [phone] Karan Snyder MD Unavailable [phone] Wesley Loaiza Primary Care Provider + Lilia Gomes MD Unavailable Mando Acuña MD Unavailable [phone] Ruben San DREDGE OR BARGE SHORE HAND Unavailable Maico Ellison SERVICER TRAVEL TRAILERS Unavailable Dorian Del Rio DNP Unavailable Larry Gregory MD Unavailable [phone] Nixon Casey MD Unavailable Renan Espino MD Unavailable Encounter Details Date Type Department Care Team (Late st Contact Info) Description 05/20/2017 Documentation [facility] [place] [id number] [place], [place] [id number] Kaylah Guerra Social History Tobacco Use Types Packs/Day Years Used Date Smoking Tobacco: Former Smokeless Tobacco: Never Alcohol Use Standard Drinks/Week Comments Not Asked 0 (1 standard drink = 0.6 oz pur e alcohol) Comments No Sex and Gender Information Value Date Recorded Sex Assigned at Not on file Legal Sex Female 1:55 AM SCALP TREATMENT SPECIALIST Gender Identity Not on file Sexual Orientation Not on file documented as of this encounter Plan of Treatment Not on file documented as of this encounter Visit Diagnoses Not on filedocumented in this encounter Additional Health Concerns Infection Onset Date Last Indicated Resolved Time COVID: Suspected Comment:Negative 09/26/2019 09/26/2019 09/27/2019 11:41 AM CDT Respiratory Infection (TATE), droplet 09/27/2019 09/27/2019 10/04/2019 3:05 AM CDT COVID: Suspected 11/30/2019 11/30/2019 12/01/2019 8:41 AM CDT COVID: Suspected 01/23/2021 01/23/2021 01/23/2021 12:27 PM CDT COVID: Suspected 10/16/2021 10/16/2021 10/17/2021 12:17 AM CDT COVID: Suspected 04/05/2022 04/05/2022 04/05/2022 4:40 PM CDT COVID19 04/05/2022 04/05/2022 04/15/2022 3:05 AM SCALP TREATMENT SPECIALIST COVID: Recovered Comment:Added based on recent COVID infection. 04/15/2022 05/17/2022 07/14/2022 3:[address] COVID: Suspected 05/17/2022 05/17/2022 05/17/2022 5:25 PM SCALP TREATMENT SPECIALIST COVID: Suspected 02/03/2023 02/03/2023 02/03/2023 12:10 PM CDT COVID: Suspected 02/28/2024 02/28/2024 02/28/2024 6:24 PM CDT documented as of this encounter Care Teams Construction Technician Relationship Specialty Start Date End Date Thierry Chadwick DO PCP - General 04/20/13 09/06/18 Wesley Loaiza PA [address] [place] [address] PCP - General 09/07/18 Karan Snyder MD Consulting Physician Cardiology 05/19/17 Lilia Gomes MD [address] [place] [address] Consulting Physician Cardiovascular Disease 09/08/18 Mando Acuña MD [address] [place] [address] Consulting Physician Cardiology 10/05/18 Ruben San, DREDGE OR BARGE SHORE HAND [address] [facility] [address] [place] [address] [facility] Outpatient Mutual Fund Accountant 10/07/18 03/13/20 Maico Ellison, SERVICER TRAVEL TRAILERS [address] [facility] [address] [place] [address] [facility] Outpatient Mutual Fund Accountant 10/07/18 03/13/20 Dorian Del Rio DNP [address] [facility] [address] [place] [address] Nurse Practitioner Internal Medicine 10/07/18 03/13/20 [place] [address] [facility] [address] [place] [address] Consulting Physician Internal Medicine 07/29/19 [place] [address] [facility] [address] [place] [address] Consulting Physician Gastroenterology 09/28/19 [place] [id number] [address] Consulting Physician Gastroenterology 11/13/21 documented as of this encounter
--- OUTSIDE RECORDS SUMMARY | 2025-02-16 08:45 | XMS_ITS ---
Author Organization [facility] [address] Address [address] [place] [address] Care Team Providers Care Cryptologic Linguist Name Role Phone Karan Snyder MD Unavailable [phone] Wesley Loaiza Primary Care Provider + Lilia Gomes MD Unavailable [phone] Mando Acuña MD Unavailable [phone] Larry Gregory MD Unavailable [phone] Nixon Casey MD Unavailable Renan Espino MD Unavailable Active Problems Problem Noted Date Diagnosed Date Chest pain, unspecified type 11/29/2023 Intraparenchymal hemorrhage of brain 11/23/2023 Left-sided chest pain 11/11/2023 Small bowel obstruction 02/03/2023 Hypokalemia 11/12/2021 Abdominal pain 11/09/2021 Thoracic back pain 01/10/2021 Toxic metabolic encephalopathy 07/13/2020 COPD (chronic obstructive pulmonary disease) (CM S/HCC) 07/11/2020 Assessment & Plan (07/11/2020 7:26 PM CUTTER HELPER): Not in exacerbation. Prn duo-nebs. HCAP (healthcare-associated pneumonia) 0 MARIELA (acute kidney injury) ([facility]) 12/01/2019 Hepatitis 12/01/2019 Multiple skin nodules 12/01/2019 Chest pain 11/30/2019 Overview (12/01/2019): Added automatically from request for surgery [id number] Assessment & Plan (07/11/2020 7:20 PM CUTTER HELPER): Suspect fibromyalgia related but need to r/o acs. Troponin levels of 12, 10, continue serial readings. EKG A-paced 71. Pacer interrogated today w/o any events recorded. Cardiology has been consulted for which we appreciate their evaluation and recommendations. Telemetry monitoring. Prn dilaudid. Resumed ranexa, naproxen and asa. Esophageal dysphagia 09/26/2019 Overview (09/27/2019): Added automatically from request for surgery [id number] Severe malnutrition ([facility]) 07/19/2019 Acute CVA (cerebrovascular accident) 07/17/2019 Assessment & Plan (07/17/2019 2:49 PM CUTTER HELPER): S/p TPA. CT and CTA as noted [...] evaluation and recommendations. Telemetry monitoring. History of MT (myocardial infarction) 10/02/2018 Chronic CHF ([facility]) 10/02/2018 Assessment & Plan (07/11/2020 7:25 PM CUTTER HELPER): Appears compensated. Last echo from 07/2019 with diastolic dysfunction Grade 1, EF 70%. Home medications listed above. Cardiology following. Assessment & Plan (09/26/2019 6:32 PM CDT): S/p AICD placement 2016. Echo 07/2019 with impaired diastolic dysfunction Grade 1 with EF 70%. On ASA, statin, coreg, zetia and prn nitro. Assessment & Plan (07/17/2019 2:50 PM CUTTER HELPER): Echo from 08/2018 with diastolic dysfunction Grade 1, EF 55%. AICD (automatic cardioverter/defibrillator) pres ent 10/02/2018 CKD (chronic kidney disease) 10/02/2018 Hypertension 10/02/2018 Hyperlipidemia 10/02/2018 Depression 10/02/2018 History of CVA (cerebrovascular accident) 2018 Assessment & Plan (07/17/2019 2:52 PM CUTTER HELPER): With residual left sided weakness prior to acute cva today. Migraines 10/02/2018 Assessment & Plan (09/26/2019 6:33 PM CDT): Topamax. Assessment & Plan (07/17/2019 2:52 PM CUTTER HELPER): On Topamax and Imitrex. Leukocytosis 10/02/2018 Gastrointestinal hemorrhage 10/02/2018 Overview (10/03/2018): Added automatically from request for surgery Depression 09/25/2018 Assessment & Plan (07/11/2020 7:24 PM CUTTER HELPER): Remeron and Cymbalta. Musculoskeletal chest pain 09/22/2018 Moderate protein-calorie malnutrition 09/09/2018 AICD (automatic cardioverter/defibrillator) pres ent 09/08/2018 Overview (04/21/2019): Biotronik ICD has followed with [facility] History of atrial fibrillation 09/08/2018 Assessment & Plan (07/11/2020 7:23 PM CUTTER HELPER): S/p AICD placement. EKG a-paced. On Xarelto, coreg and asa. Telemetry monitoring. SLE (systemic lupus erythema tosus related syndrome) ([facility]) 09/08/2018 Assessment & Plan (07/11/2020 7:24 PM CUTTER HELPER): Prednisone and Naproxen. Assessment & Plan (09/26/2019 6:32 PM CDT): Prn analgesics. Assessment & Plan (07/17/2019 2:58 PM CUTTER HELPER): Not in exacerbation. Prn analgesics. History of ventricular tachycardia 09/08/2018 Coronary arteriosclerosis in [place] artery 10/15 Overview (09/06/2016): Coronary artery disease of [place] artery of [place] heart with stable angina pectoris Assessment & Plan (07/11/2020 7:22 PM CUTTER HELPER): S/p stenting to RCA, LAD and OM. On ASA, zetia and atorvastatin. Assessment & Plan (09/26/2019 6:28 PM CDT): S/p KEITH to LAD 2011. On ASA and Brilinta. Assessment & Plan (07/17/2019 2:58 PM CUTTER HELPER): S/p stenting to LAD 2011. Normally on Brilinta and asa. S/p AICD placement. Presence of stent in coronary artery 10/16/2015 Overview (09/06/2016): History of coronary artery stent placement Fatigue 10/16/2015 Overview (09/06/2016): Fatigue, unspecified type NSTEMI (non-ST elevated myocardial infarction) 0 10/16/2015 Overview (09/06/2016): Old MT (myocardial infarction) Angina pectoris 10/16/2015 Overview (09/06/2016): Angina pectoris Hypertension 10/16/2015 Overview (09/06/2016): Resistant hypertension Assessment & Plan (07/11/2020 7:23 PM CUTTER HELPER): Controled on Aldactone, Nifedipine, Hyzaar, clonidine and coreg. Monitor. Assessment & Plan (09/26/2019 6:28 PM CDT): Stable. On Coreg. Assessment & Plan (07/17/2019 2:50 PM CUTTER HELPER): Stable. On five anti-hypertensive's. Will hold d/t hypotension and acute stroke. Monitor closely. Ventricular premature beats 10/16/2015 Overview (09/06/2016): PVCs (premature ventricular contractions) History of stroke 10/16/2015 Overview (09/06/2016): History of stroke Hypercholesterolemia 10/16/2015 Overview (09/06/2016): Hypercholesterolemia Assessment & Plan (09/26/2019 6:29 PM CDT): On statin and zetia. Assessment & Plan (07/17/2019 2:52 PM CUTTER HELPER): Zetia. Former smoker 10/16/2015 Overview (09/06/2016): Former smoker Assessment & Plan (07/11/2020 7:26 PM CUTTER HELPER): Reports quit 4 years ago. Assessment & Plan (07/17/2019 2:54 PM CUTTER HELPER): Quit four years ago. Urinary tract infection 05/16/2015 Hydronephrosis 03/23/2015 Lupus erythematosus 02/28/2015 Malignant neoplasm of urinary bladder 02/28/2015 Fibromyalgia Assessment & Plan (07/11/2020 7:22 PM CUTTER HELPER): Gabapentin and prn analgesics. Monitor. Assessment & Plan (07/17/2019 2:59 PM CUTTER HELPER): Lyrica. Prn analgesics. Chronic pain syndrome Vasovagal [...]
--- OUTSIDE RECORDS SUMMARY | 2025-02-16 08:45 | XMS_ITS | Clinical Summary ---
Author Organization [facility] [address] Address [address] [place] [address] Care Team Providers Care Night Monitor Name Role Phone Karan Snyder MD Unavailable [phone] Wesley Loaiza Primary Care Provider + Lilia Gomes MD Unavailable Mando Acuña MD Unavailable [phone] Larry Gregory MD Unavailable [phone] Nixon Casey MD Unavailable Renan Espino [...] encephalopathy 07/13/2020 COPD (chronic obstructive pulmonary disease) ([facility]) 07/11/2020 Assessment & Plan (07/11/2020 7:26 PM HAT SIZER): Not in exacerbation. Prn duo-nebs. HCAP (healthcare-associated pneumonia) 0 MARIELA (acute kidney injury) ([facility]) 12/01/2019 Hepatitis 12/01/2019 Multiple skin nodules 12/01/2019 Chest pain 11/30/2019 Overview (12/01/2019): Added automatically from request for surgery [id number] Assessment & Plan (07/11/2020 7:20 PM HAT SIZER): Suspect fibromyalgia related but need to r/o acs. Troponin levels of 12, 10, continue serial readings. EKG A-paced 71. Pacer interrogated today w/o any events recorded. Cardiology has been consulted for which we appreciate their evaluation and recommendations. Telemetry monitoring. Prn dilaudid. Resumed ranexa, naproxen and asa. Esophageal dysphagia 09/26/2019 Overview (09/27/2019): Added automatically from request for surgery [id number] Severe malnutrition ([facility]) 07/19/2019 Acute CVA (cerebrovascular accident) 07/17/2019 Assessment & Plan (07/17/2019 2:49 PM HAT SIZER): S/p TPA. CT and CTA as noted [...] evaluation and recommendations. Telemetry monitoring. History of WA (myocardial infarction) 10/02/2018 Chronic CHF ([facility]) 10/02/2018 Assessment & Plan (07/11/2020 7:25 PM HAT SIZER): Appears compensated. Last echo from 07/2019 with diastolic dysfunction Grade 1, EF 70%. Home medications listed above. Cardiology following. Assessment & Plan (09/26/2019 6:32 PM CDT): S/p AICD placement 2015. Echo 07/2019 with impaired diastolic dysfunction Grade 1 with EF 70%. On ASA, statin, coreg, zetia and prn nitro. Assessment & Plan (07/17/2019 2:50 PM HAT SIZER): Echo from 08/2018 with diastolic dysfunction Grade 1, EF 55%. AICD (automatic cardioverter/defibrillator) pres ent 10/02/2018 CKD (chronic kidney disease) 10/02/2018 Hypertension 10/02/2018 Hyperlipidemia 10/02/2018 Depression 10/02/2018 History of CVA (cerebrovascular accident) 2018 Assessment & Plan (07/17/2019 2:52 PM HAT SIZER): With residual left sided weakness prior to acute cva today. Migraines 10/02/2018 Assessment & Plan (09/26/2019 6:33 PM CDT): Topamax. Assessment & Plan (07/17/2019 2:52 PM HAT SIZER): On Topamax and Imitrex. Leukocytosis 10/02/2018 Gastrointestinal hemorrhage 10/02/2018 Overview (10/03/2018): Added automatically from request for surgery Depression 09/25/2018 Assessment & Plan (07/11/2020 7:24 PM HAT SIZER): Remeron and Cymbalta. Musculoskeletal chest pain 09/22/2018 Moderate protein-calorie malnutrition 09/09/2018 AICD (automatic cardioverter/defibrillator) pres ent 09/08/2018 Overview (04/21/2019): Biotronik ICD has followed with [facility] History of atrial fibrillation 09/08/2018 Assessment & Plan (07/11/2020 7:23 PM HAT SIZER): S/p AICD placement. EKG a-paced. On Xarelto, coreg and asa. Telemetry monitoring. SLE (systemic lupus erythema tosus related syndrome) ([facility]) 09/08/2018 Assessment & Plan (07/11/2020 7:24 PM HAT SIZER): Prednisone and Naproxen. Assessment & Plan (09/26/2019 6:32 PM CDT): Prn analgesics. Assessment & Plan (07/17/2019 2:58 PM HAT SIZER): Not in exacerbation. Prn analgesics. 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 On ASA, zetia and atorvastatin. Assessment & Plan (09/26/2019 6:28 PM CDT): S/p KEITH to LAD 2012. On ASA and Brilinta. Assessment & Plan (07/17/2019 2:58 PM HAT SIZER): S/p stenting to LAD 2012. Normally on Brilinta and asa. S/p AICD placement. Presence of stent in coronary artery 10/16/2015 Overview (09/06/2016): History of coronary artery stent placement Fatigue 10/16/2015 Overview (09/06/2016): Fatigue, unspecified type NSTEMI (non-ST elevated myocardial infarction) 0 10/16/2015 Overview (09/06/2016): Old WA (myocardial infarction) Angina pectoris 10/16/2015 Overview (09/06/2016): Angina pectoris Hypertension 10/16/2015 Overview (09/06/2016): Resistant hypertension Assessment & Plan (07/11/2020 7:23 PM HAT SIZER): Controled on Aldactone, Nifedipine, Hyzaar, clonidine and coreg. Monitor. Assessment & Plan (09/26/2019 6:28 PM CDT): Stable. On Coreg. Assessment & Plan (07/17/2019 2:50 PM HAT SIZER): Stable. On five anti-hypertensive's. Will hold d/t hypotension and acute stroke. Monitor closely. Ventricular premature beats 10/16/2015 Overview (09/06/2016): PVCs (premature ventricular contractions) History of stroke 10/16/2015 Overview (09/06/2016): History of stroke Hypercholesterolemia 10/16/2015 Overview (09/06/2016): Hypercholesterolemia Assessment & Plan (09/26/2019 6:29 PM CDT): On statin and zetia. Assessment & Plan (07/17/2019 2:52 PM HAT SIZER): Zetia. Former smoker 10/16/2015 Overview (09/06/2016): Former smoker Assessment & Plan (07/11/2020 7:26 PM HAT SIZER): Reports quit 4 years ago. Assessment & Plan (07/17/2019 2:54 PM HAT SIZER): Quit four years ago. Urinary tract infection 05/16/2015 Hydronephrosis 03/23/2015 Lupus erythematosus 02/28/2015 Malignant neoplasm of urinary bladder 02/28/2015 Fibromyalgia Assessment & Plan (07/11/2020 7:22 PM HAT SIZER): Gabapentin and prn analgesics. Monitor. Assessment & Plan (07/17/2019 2:59 PM HAT SIZER): Lyrica. Prn analgesics. Chronic pain syndrome Vasovagal syncope Nausea and vomiting Colitis Encounters Date Type Department Care Team Description 02/12/2025 7:45 PM CDT - 02/12/2025 11:18 PM CDT Emergency [facility] Emergency Department [address] [place] [address] Seth Ann III, MD Fall, initial encounter [...] Coronary artery disease Hypertension Migraines Lupus Depression WA (myocardial infarction) (HCC) Cancer (HCC) A-fib (HCC) [...] often do you attend chur ch or advent services? More than 4 times per year 02/04/2023 Do you belong to any clubs o r organizations such as islam groups, unions, fraternal or athletic groups, or [...] place to sleep or slept in a assisted (including now)? No 02/04/2023 Personal Safety Answer Date Recorded Have you ever been in or are you currently in a harmful physical or emotional relationship or is someone making you feel afraid or unsafe? Denies 02/12/2025 Comments No Sex and Gender Information Value Date Recorded Sex Assigned at Not on file Legal Sex Female 1:55 AM HAT SIZER Gender Identity Not on file Sexual Orientation [...] 11/13/2021, 10/05/2018 Medical Devices Implanted Type Area Wire Harness Design Engineer Device Identifier Shelf Expiration Date Model / Serial / Lot Biotech ICD Chest [employer] [id number] Angio-Seal Evolution 6fr .035in Guidewire Bypass Tube Suture - [id number] Implanted:Qty: 1 on 01/31/2020 by Robb Wilson MD at [facility] [employer] 07/30/2020 [id number] / / [id number] Procedures Procedure Name Priority Date/Time Associated Diagnosis [...] white matter change. For the purposes of water quality control engineer, this study was initially interpreted by [...] white matter change. For the purposes of water quality control engineer, this study was initially interpreted by [...] ORDER GLADIS Final Result Performing Organization Address City/[facility] Co de Phone Number BRIONNANORMA HOOKER [address] [place] [address] * (ABNORMAL) eGFR (02/12/2025 7:53 [...] ORDERABLES Final Res ult Performing Organization Address City/[facility]/[place] [address] [address] [place] [address] * (ABNORMAL) Differential, auto (02/12/2025 7:53 PM CDT) Neutrophil abs 5.37 1.50 - 6.50 K/cumm Imm gran abs 0.02 0.00 - 0.10 K/cumm CERNER Lymphocyte abs 0.93 0.80 - 3.30 K/cumm CERNER Monocyte abs 0.97(H) 0.20 - 0.80 K/cumm CERNER CH Eosinophil abs 0.80(H) 0.00 - 0.50 K/cumm CERNER Basophil abs 0.03 0.00 - 0.10 K/cumm [facility] Neutrophil pct 66.1 % CERNER Comment: Interpretive [...] BLOOD ORDER GLADIS Final Result FL[place]INA HOOKER [address] Department [place] [address] * (ABNORMAL) CBC with auto differential (02/12/2025 [...] BLOOD ORDER GLADIS Final Result FL[place]INA HOOKER [address] Department [place] [address] * (ABNORMAL) Comprehensive metabolic panel (02/12/2025 7:53 [...] LAB BLOOD ORDER GLADIS Final Result FL[place] [address] Department [place] [address] * ECG 12 lead (02/12/2025 7:34 PM CDT) 02/12/2025 7:34 PM CDT Narrative [facility] - 02/13/2025 1:31 PM CDT Vent Rate: 83 bpm RR Interval: 722 msec SD Interval: 0 msec QRS Duration: 97 msec QT Interval: 392 msec QTC Interval: 431 msec P-R-T Nada: 0 - 37 - 60 degrees IMPRESSION: Sinus rhythm with PACs and PVCs VOLTAGE CRITERIA FOR LVH [MEETS CRITERIA IN ONE OF: R(aVL), S(V1), R(V5), R(V5/V6)+S(V1)] MODERATE ST DEPRESSION [0.05+ mV ST DEPRESSION] ABNORMAL ECG No significant changes compared to February 28, 2024 Electronically Signed By: Dr. Lila Argueta [facility] us Seth Ann III, MD ECG ORDERABLES Final Result [facility] * COLONOSCOPY (11/13/2021 2:19 PM CDT) Anatomical Region Laterality Modality Other Narrative Procedure Note Renan Espino MD - 11/13/2021 2:19 PM CDT [facility] Patient Name: Teagan Sigala [...] Eliu Britton CRNA (Anesthesia Staff), Andrew Henderson, Batch Trucker Referring MD: Crystal Zavala Medicines: Monitored Anesthesia [...] not recommended. Procedure Code(s): --- Professional --- 28833, Colonoscopy, flexible; with biopsy, singleor multiple Diagnosis Code(s): --- Professional --- D12.5, Benign neoplasm of sigmoid colon D12.3, Benign neoplasm of transverse colon (hepatic flexure or splenic flexure) K55.20, Angiodysplasia of colon withouthemorrhage R10.84, Generalized abdominal pain K57.30, Diverticulosis of large intestine without perforation or abscess without bleeding R93.3, Abnormal findings on diagnostic imaging of other parts of digestive tract CPT copyright 2020 [employer]. All rights reserved. The codes documented in this report are preliminary and upon adolescent medicine specialist reviewmay be revised to meet current compliance [...] Renan Espino MD LAB MICROBIOLOGY - [facility] ORDERABLES Final Result [facility] [address] Department of Laboratories [place], [place] [id number] from Last 3 Months or Most Recently Relevant to Health Maintenance Insurance IDPA AETNA [facility] MEDICARE IDPA [facility] MEDICARE [facility] Address: [address] [address] [place] [address] Advance Directives For more information, please contact: [phone] Documents on File Type Date Recorded Patient Wallpaper Scraper Expl anation ADVANCE DIRECTIVE 09/23/2018 9:15 AM BONNY TAYLOR ADVANCE DIRECTIVE 09/23/2018 9:13 AM POWER OF SENIOR CREDIT ANALYST-MEDICAL ADVANCE DIRECTIVE 09/23/2018 9:13 AM POWER OF SENIOR CREDIT ANALYST-MEDICAL * Full Code (Latest Code Status [...] Carrasquillo Son Health Care Agent Care Teams Night Monitor Relationship Specialty Start Date End Date Wesley Loaiza PA [address] [place] [address] PCP - General 09/07/18 Karan Snyder MD Consulting Physician Cardiology 05/19/17 Lilia Gomes MD [address] [place] [address] Consulting Physician Cardiovascular Disease 09/08/18 Mando Acuña MD [address] [place] [address] Consulting Physician Cardiology 10/05/18 [place] [address] [place] [address] Consulting Physician Internal Medicine 07/29/19 [place] [address] [place] [address] Consulting Physician Gastroenterology 09/28/19 [place] [id number] [address] Consulting Physician Gastroenterology 11/13/21
== END 2025-02-15 13:05 | disposition left against medical advice (07) ==
LOC: ANHED 19:39 → ANHIMU 23:32
PROVIDERS: Internal Medicine; Admitting Provider General Practice; Emergency Provider Emergency Medicine; PCP Physician Assistant; Visit Provider Internal Medicine
DX: J44.1 Chronic obstructive pulmonary disease with (acute) exacerbation (principal); R07.1 Chest pain on breathing; D50.9 Iron deficiency anemia, unspecified; R50.9 Fever, unspecified; W57.XXXA Bitten or stung by nonvenomous insect and other nonvenomous arthropods, initial encounter; E43 Unspecified severe protein-calorie malnutrition; N17.9 Acute kidney failure, unspecified; Z76.5 Malingerer [conscious simulation]; F13.90 Sedative, hypnotic, or anxiolytic use, unspecified, uncomplicated; E78.5 Hyperlipidemia, unspecified; K21.9 Gastro-esophageal reflux disease without esophagitis; I25.10 Atherosclerotic heart disease of native coronary artery without angina pectoris; F41.8 Other specified anxiety disorders; M81.0 Age-related osteoporosis without current pathological fracture; N18.32 Chronic kidney disease, stage 3b; I12.9 Hypertensive chronic kidney disease with stage 1 through stage 4 chronic kidney disease, or unspecified chronic kidney disease; E22.9 Hyperfunction of pituitary gland, unspecified; Z85.528 Personal history of other malignant neoplasm of kidney; I25.2 Old myocardial infarction; Z82.49 Family history of ischemic heart disease and other diseases of the circulatory system; Z95.810 Presence of automatic (implantable) cardiac defibrillator; F17.210 Nicotine dependence, cigarettes, uncomplicated; Z79.01 Long term (current) use of anticoagulants; L20.84 Intrinsic (allergic) eczema; D49.4 Neoplasm of unspecified behavior of bladder; Z68.1 Body mass index [BMI] 19.9 or less, adult; Z20.822 Contact with and (suspected) exposure to COVID-19
CPT/HCPCS: 36415; 36430; 71045; 71046; 74176; 78582; 80048; 80053; 80307; 81001; 82150; 82550; 82607; 82728; 82746; 83540; 83550; 83690; 83735; 83880; 84443; 84484; 85025; 85027; 85380; 85610; 85730; 86850; 86870; 86880; 86900; 86901; 86902; 86906; 86922; 86971; 87040; 87637; 93005; 93306; 94640; 96365; 96375; 99285; A9270; A9540; A9558; G0378; J1756; J2270; J2405; J2470; J2919; J7050; P9016

== ENCOUNTER 2025-02-25 18:54 | Inpatient (IN) | payer MEDICARE, MEDICAID, SELFPAY ==
[2025-02-25] VITALS (31 sets, daily range): BP systolic 110–175; BP diastolic 52–88; PULSE 71–88; RESP 16–32; TEMP 36.7; O2SAT 95–100
--- NOTE | ~2025-02-25 | US_ITS ---
Clinical History: Vision loss Examination: US carotid duplex BI Comparison: None Technique: Grayscale, color, duplex/spectral Doppler sonography carotid and vertebral arteries. Distal CCA and Peak ICA systolic velocities provided. Society of Radiologists in Ultrasound (SRU) consensus criteria utilized, indirectly assessing stenosis by velocities. Findings: Scattered atherosclerotic disease Right side: CCA - 93 cm/sec. ICA - 70 cm/sec. ICA/CCA - 0.8 Left Side: CCA - 80 cm/sec. ICA - 84 cm/sec. ICA/CCA - 1.0 Normal antegrade flow measured bilateral vertebral arteries. IMPRESSION: 1. No hemodynamically significant ICA stenosis (i.e., if any stenosis, less than 50%). 2. Normal bilateral antegrade vertebral artery flow. Stenosis measured by Society of Radiologists in Ultrasound (SRU) criteria. Reviewed, dictated and finalized at location R. IMPRESSION: 1. No hemodynamically significant ICA stenosis (i.e., if any stenosis, less th an 50%). 2. Normal bilateral antegrade vertebral artery flow. Stenosis measured by Society of Radiologists in Ultrasound (SRU) criteria.
--- NOTE | ~2025-02-25 | XR_ITS ---
XR chest 1V portable 02/25/2025 19:56 Indication: Chest pain Procedure: AP portable chest Comparison: Comparison to multiple prior studies sequentially, with oldest reviewed study dated 05/12/2024. Findings: Cardiomegaly. There is retrocardiac consolidation. Small left pleural effusion. There is atherosclerosis of the aorta. Pacemaker leads are stable. Right lung clear. There is a coronary artery stent. Impression: 1: Retrocardiac consolidation may represent atelectasis and/or pneumonia. 2: Small left pleural effusion. Reviewed, dictated and finalized at location O. Impression: 1: Retrocardiac consolidation may represent atelectasis and/or pneumonia. 2: Small left pleural effusion.
--- NOTE | ~2025-02-25 | CT_ITS ---
EXAMINATION: CT orbit BI w con DATE: 03/01/2025 16:34 INDICATION: Sinonasal infection. TECHNIQUE: Computed tomography (CT) of the orbits was performed with 75 mL Omnipaque 350 intravenous contrast. Automated exposure control and iterative reconstruction technique were employed. The dose-length product was 198.63 mGy-cm. COMPARISON: CT 11/28/2023 FINDINGS: The orbits are normal. The frontal, ethmoid, and sphenoid sinuses are clear. There is mild mucosal thickening in the maxillary sinuses. There is a mucous retention cyst in left maxillary sinus. There is rightward deviation of the nasal septum. The ostiomeatal units are patent. There is a small left mastoid effusion. IMPRESSION: 1. Mild mucosal thickening in the maxillary sinuses. 2. Rightward deviation of the nasal septum. Reviewed, dictated and finalized at location E.
--- NOTE | ~2025-02-25 | CT_ITS ---
EXAMINATION: CT brain wo con DATE: 03/02/2025 10:57 INDICATION: Diplopia TECHNIQUE: Computed tomography (CT) of the head was performed without intravenous contrast. The dose-length product was 605.33 mGy-cm. COMPARISON: None FINDINGS: No acute intracranial hemorrhage. No mass effect. No midline shift. No hydrocephalus. No skull fracture. Visualized paranasal sinuses mastoid air cells are clear. Old lacunar infarction in the right basal ganglia. There are several low density regions scattered throughout the periventricular and deep white matter which are favored to represent chronic ischemic white matter change. Other etiologies are possible. If of concern, consider a brain MRI with and without contrast for further assessment. IMPRESSION: 1. No acute intracranial hemorrhage. No mass effect. 2. There are several low density regions scattered throughout the periventricular and deep white matter which are favored to represent chronic ischemic white matter change. Other etiologies are possible. If of concern, consider a brain MRI with and without contrast for further assessment. 3. Old lacunar infarction in the right basal ganglia. If symptoms persist or worsen, consider a short-term follow-up study or brain MRI imaging for further assessment. Reviewed, dictated and finalized at location Q. IMPRESSION: 1. No acute intracranial hemorrhage. No mass effect. 2. There are several low density regions scattered throughout the periventricul ar and deep white matter which are favored to represent chronic ischemic white matter change. Other etiologies are possible. If of concern, consider a brain M RI with and without contrast for further assessment. 3. Old lacunar infarction in the right basal ganglia. If symptoms persist or worsen, consider a short-term follow-up study or brain M RI imaging for further assessment.
--- NOTE | 2025-02-25 19:10 | ECG_ITS ---
Test Date: 2025-02-25 19:14:11 Measurements Intervals [place] Rate: 71 P: 13 WI: 138 QRS: 65 QRSD: 97 T: 50 QT: 386 QTc: 420 Interpretive Statements ELECTRONIC ATRIAL PACEMAKER LEFT VENTRICULAR HYPERTROPHY AND ST-T CHANGE [VOLTAGE CRITERIA PLUS ST/T ABNORMALITY] No previous ECG available for comparison Electronically Signed On 02-25-2025 19:58:19 CDT by Lila Argueta M.D.
--- NOTE | 2025-02-25 19:30 | PC.NURSE ---
Upon pt arrival to ED RN noticed bug crawling on pt. RN collected bug into specimen cup, ED battery recharger aware. Pt clothing removed over white sheet and everything double bagged into blue bags. Precautions initiated
[2025-02-25 19:33] LABS: Hematocrit 36.7 % (37.0-47.0); Hemoglobin 10.7 g/dL (12.0-15.0); Immature Granulocyte Percent A 1.5 % (0-0.5); Lymphocytes Absolute Auto 1.70 K/mm3 (0.9-3.2); Mean Corpuscular HGB Conc 29.2 g/dl (32-36); Mean Corpuscular Hemoglobin 22.5 pg (26-34); Mean Corpuscular Volume 77.1 fl (80-100); Nucleated Red Blood Cells Absolute Auto 0.000 K/mm3 (0.0-0.012); Nucleated Red Blood Cells Perc 0.0 % (0.0-0.2); Platelet Count Result 397 k/mm3 (150-375); Red Blood Count 4.76 M/mm3 (4.2-5.4); White Blood Count 14.1 K/mm3 (4.5-10.0)
--- NOTE | 2025-02-25 19:43 | PC.NURSE ---
Report received from MACHO Damico. Assumed care of patient at this time.
[2025-02-25 19:44] LABS: INR 1.0; Prothrombin Time 13.4 Seconds (11.1-14.7)
[2025-02-25 19:45] LABS: Partial Thromboplastin Time 25.6 Seconds (22.3-36.8)
[2025-02-25 19:46] LABS: Alanine Aminotransferase 16 U/L (6-35); Albumin Level 3.3 g/dL (3.5-5.1); Alkaline Phosphatase 142 U/L (38-126); Anion Gap 7 mmol/L (4-12); Aspartate Amino Transferase 25 U/L (14-36); Bilirubin,Total 0.5 mg/dL (0.2-1.3); Blood Urea Nitrogen 20 mg/dL (7-17); Calcium 8.5 mg/dL (8.4-10.2); Carbon Dioxide 27 mmol/L (22-30); Chloride 102 mmol/L (98-107); Estimated CRCL calculation 30 ml/min; Estimated Glomerular Filt Rate 59; Glucose 101 mg/dL (65-110); Lipase 293 U/L (23-300); Potassium 3.4 mmol/L (3.4-5.0); Sodium 136 mmol/L (137-145); Total Protein 6.0 g/dL (6.3-8.2)
[2025-02-25 19:51] LABS: Anisocytosis 1+; Burr Cells Occasional; Hypochromasia 1+; Macrocytosis 1+ (NORMAL); Ovalocytes 1+; Schistocytes None Seen
[2025-02-25 19:57] LABS: Troponin I 0.032 ng/mL (0.000-0.034)
--- NOTE | 2025-02-25 20:13 | ED_ITS ---
HPI - Chest Pain General Chief Complaint: Chest Pain Stated Complaint: Difficulty breathing x 5 hours; CP Time Seen by Provider: 02/25/25 19:17 History of Present Illness HPI narrative: Patient is a 74-year-old female who presents emergency department this evening complaining of chest pain which started earlier in the afternoon. Patient admits that she does have a history of atrial fibrillation and coronary artery disease. States the pain initially did radiate to her right arm. Denies any nausea or vomiting, any shortness of breath, any recent illness, fevers or chills. No additional symptoms or concerns at this time. Related Data Allergies Allergy/AdvReac Type Severity Reaction Status Date / Time Penicillins Allergy Unknown Verified 02/25/25 19:27 Sulfa (Sulfonamide Allergy Unknown Verified 02/25/25 19:27 Antibiotics) Review of Systems 2 Review of Systems: All systems are reviewed and are negative unless stated otherwise in the HPI. Exam 2 Narrative: General: Alert, awake, afebrile, in no acute distress. HEENT: PERRL, no rhinorrhea, no post nasal drip, oropharynx clear. Neck: Trachea midline, no JVD, no lymphadenopathy. Cardiovascular: Regular rate and rhythm, no murmurs, rubs or gallops, no peripheral edema. Respiratory: Clear to auscultation bilaterally, no tachypnea, no wheezing, no rhonchi, no rubs, no respiratory distress. Abdomen: Soft, nontender, nondistended, no rebound, no guarding, no peritoneal signs. Musculoskeletal: No joint swelling or deformity, normal muscle tone. Skin: No rashes or petechia, no signs of infection. Psychiatric: Alert and oriented, normal behavior and judgment for situation. Neurological: Alert and oriented to person, place, and time. Follows all commands. No focal deficits, speech is clear and fluent. Course Vital Signs Vital signs: Vital Signs Temperature 98.1 F 02/25/25 18:54 Pulse Rate 76 02/25/25 18:54 Respiratory Rate 22 H 02/25/25 18:54 Blood Pressure 156/79 H 02/25/25 18:54 Pulse Oximetry 98 02/25/25 18:54 Oxygen Delivery Room Air 02/25/25 18:54 Temperature 98.1 F 02/25/25 18:54 Pulse Rate 73 02/25/25 22:55 Respiratory Rate 19 02/25/25 22:55 Blood Pressure 127/65 02/25/25 22:01 Pulse Oximetry 99 02/25/25 22:55 Oxygen Delivery Room Air 02/25/25 19:28 MDM - Chest Pain MDM Narrative Medical decision making narrative: The patient was evaluated by myself in the emergency department. History is obtained from patient who is an independent historian and physical exam was performed. External medical records were reviewed at this time. IV was established and pertinent tests were ordered. Patient was administered 2 mg of IV morphine and 4 mg of IV Zofran. Patient was also administered a full dose oral chewable aspirin. EKG was obtained which revealed a paced rhythm rate of 71 beats per minute, good capture, otherwise no evidence of acute ischemia. EKG was independently interpreted by me and is currently pending official cardiology read. Laboratory results obtained revealing no acute process. Initial troponin negative at 0.032. 3 hour troponin was noted to be elevated at 0.043. At this time, patient was started on heparin for acute coronary syndrome. Imaging studies obtained included CXR which was independently interpreted by me revealing: Impression: 1: Retrocardiac consolidation may represent atelectasis and/or pneumonia. 2: Small left pleural effusion. Differential diagnosis considerations include acute coronary syndrome, narcotic seeking behavior this patient is well-known to our facility was recently admitted and signed out AMA, infectious process such as pneumonia, costochondritis. Comorbidities impacting this visit include none. I have evaluated and discussed social determinants of health with the patient that could potentially impact subsequent diagnosis and treatment plans. On repeat assessment of the patient, reevaluation revealed that the patient is doing well and is in no acute distress. Patient symptoms have improved since she arrived to our emergency department. Repeat vital signs were all reviewed and noted to be stable. Differential diagnosis and treatment plan were discussed with the patient at bedside. Patient agrees with discussion and after shared medical decision making agrees with admission. All questions were answered to the patient's satisfaction. Critical care time of 50 minutes, exclusive of separately performed procedures, necessary for treating or preventing eminent or life-threatening deterioration of patient's condition of acute NSTEMI requiring IV heparin therapy, focused on patient care provided personally by me and time spent during initial evaluation, physical examination, ordering and performing treatments and interventions, ordering and reviewing laboratory studies, ordering and reviewing radiographic studies, re-evaluation of the patient's condition, evaluation of the patient's response to treatment, and discussion of patient case with multiple consultants. Lab Data 02/25/25 19:27 02/25/25 19: Labs: Lab Results 02/25/25 02/25/25 Range/Units 19: 22:25 WBC 14.1 H (4.5-10.0) K/mm3 RBC 4.76 (4.2-5.4) M/mm3 Hgb 10.7 L (12.0-15.0) g/dL Hct 36.7 L (37.0-47.0) % MCV 77.1 L (80-100) fl MCH 22.5 L (26-34) pg MCHC 29.2 L (32-36) g/dl RDW 28.5 H (11.5-14.5) % Plt Count 397 H (150-375) k/mm3 MPV 9.1 (7.4-10.4) fl Immature Gran % (Auto) 1.5 H (0-0.5) % Neut % (Auto) 76.6 H (45.5-73.1) % Lymph % (Auto) 12.1 L (18.3-44.2) % [place] % (Auto) 8.3 (2.6-8.5) % Eos % (Auto) 1.1 (0-4.4) % Baso % (Auto) 0.4 (0.2-1.2) % Lymph # (Auto) 1.70 (0.9-3.2) K/mm3 [place] # (Auto) 1.2 H (0.1-0.6) K/mm3 Eos # (Auto) 0.2 (0-0.3) K/mm3 Baso # (Auto) 0.1 (0.0-0.1) K/mm3 Abs Immat Gran (auto) 0.21 H (0.00-0.031) K/mm3 Absolute Neuts (auto) 10.8 H (1.3-6.7) K/mm3 Absolute Nucleated RBC 0.000 (0.0-0.012) K/mm3 Band Neutrophils % Not Reportable Nucleated RBC % 0.0 (0.0-0.2) % Platelet Estimate Slightly increased (Adequate) Hypochromasia 1+ Anisocytosis 1+ Macrocytosis 1+ (NORMAL) Ovalocytes 1+ [place] Cells Occasional Schistocytes None seen PT 13.4 (11.1-14.7) Seconds INR 1.0 APTT 25.6 (22.3-36.8) Seconds Sodium 136 L (137-145) mmol/L Potassium 3.4 (3.4-5.0) mmol/L Chloride 102 (98-107) mmol/L Carbon Dioxide 27 (22-30) mmol/L Anion Gap 7 (4-12) mmol/L BUN 20 H (7-17) mg/dL Creatinine 0.93 (0.7-1.0) mg/dL Estim Creat Clear Calc 30 ml/min Estimated GFR 59 (59 - ) Glucose 101 (65-110) mg/dL Calcium 8.5 (8.4-10.2) mg/dL Total Bilirubin 0.5 (0.2-1.3) mg/dL AST 25 (14-36) U/L ALT 16 (6-35) U/L Alkaline Phosphatase 142 H (38-126) U/L Troponin I 0.032 0.043 H* D (0.000-0.034) ng/mL Total Protein 6.0 L (6.3-8.2) g/dL Albumin 3.3 L (3.5-5.1) g/dL Lipase 293 (23-300) U/L Critical Care Time Critical Care Time Critical Care Time: Yes Total Critical Care Time: 50 (Please refer to [facility] for attestation.) Discharge Plan Discharge Clinical Impression: Chest pain, Infestation by bed bug, Acute non-ST elevation myocardial infarction (NSTEMI) Patient Disposition: Still a Patient Condition: Stable Patient Language: Georgian Follow-up/Referrals: Josse,Gideon [Other] Time of Disposition: 23:19
[2025-02-25] MEDS: ONDANSETRON INJ 4 MG/2 ML VIAL IV PUSH (20:14)
[2025-02-25] MEDS: MORPHINE SULFATE (*CRX) 4 MG/ML INJ 2 MG IV PUSH (20:15)
--- NOTE | 2025-02-25 22:05 | ECG_ITS ---
Test Date: 2025-02-25 22:19:46 Measurements Intervals [place] Rate: 74 P: 45 TN: 133 QRS: 55 QRSD: 98 T: 39 QT: 405 QTc: 451 Interpretive Statements ELECTRONIC ATRIAL PACEMAKER LEFT VENTRICULAR HYPERTROPHY AND ST-T CHANGE [VOLTAGE CRITERIA PLUS ST/T ABNORMALITY] Compared to ECG 02/25/2025 19:14:11 No significant changes Electronically Signed On 02-26-2025 00:36:18 CDT by Lila Argueta M.D.
[2025-02-25 22:56] LABS: Troponin I 0.043 ng/mL (0.000-0.034)
--- NOTE | 2025-02-25 22:59 | PC.NURSE ---
VORB to give patient 324mg chewable aspirin. Orders placed.
[2025-02-25] MEDS: ASPIRIN 81 MG CHEWABLE TABLET 324 MG PO (23:03)
[2025-02-26] VITALS (46 sets, daily range): BP systolic 104–147; BP diastolic 50–88; PULSE 63–98; RESP 15–26; TEMP 36.4–36.8; O2SAT 94–99; BMI 16.1
--- NOTE | 2025-02-26 | ECHO_ITS ---
Patient Info Name: Teagan Sigala Age: 74 years : 1950 Gender: Female Ht: 65 in Wt: 97 lbs BSA: 1.41 m2 HR: 89 bpm BP: 147 / 59 mmHg Technical Quality: Good Exam Date: 02/26/2025 11:42 AM Patient Status: O Admit Date: 02/26/2025 Exam Type: CA echo doppler color flow Complete two-dimensional, color flow and Doppler transthoracic echocardiogram is performed. Staff Referring Physician: Nathanael Henry MD Plant Security Guard: Marian Carrillo Attending Provider: Amina Worthy DO Summary 1. Complete two-dimensional, color flow and Doppler transthoracic echocardiogram is performed. 2. Left ventricular systolic function is normal, estimated at 55-60. 3. There is mildly increased left ventricular wall thickness. 4. The left ventricular diastolic function is grade I diastolic dysfunction. 5. The mid inferior wall, basal inferolateral wall, and mid inferolateral wall are hypokinetic. 6. Linear artifact in right ventricle suggestive of catheter(s), pacemaker lead(s), or ICD lead(s). 7. There is mild tricuspid valve regurgitation. 8. No pulmonary hypertension, estimated pulmonary arterial systolic pressure is 35 mmHg. 9. Pleural effusion. Left Ventricle Left ventricular chamber dimension is normal. Left ventricular systolic function is normal, estimated at 55-60. There is mildly increased left ventricular wall thickness. Left ventricular septal wall motion is normal. The left ventricular diastolic function is grade I diastolic dysfunction. The mid inferior wall, basal inferolateral wall, and mid inferolateral wall are hypokinetic. Right Ventricle Right ventricular chamber dimension is normal. Right ventricular systolic function is normal. Linear artifact in right ventricle suggestive of catheter(s), pacemaker lead(s), or ICD lead(s). Left Atria Left atrial chamber dimension is normal. Right Atria Right atrial chamber dimension is normal. Aortic Valve The aortic valve is trileaflet. There is no aortic valve sclerosis. There is no aortic valve stenosis. There is no aortic valve regurgitation. Pulmonic Valve The pulmonic valve is normal. There is no pulmonic valve stenosis. There is no pulmonic regurgitation. Mitral Valve The mitral valve has normal leaflets. There is no mitral valve stenosis. There is no mitral valve regurgitation. There is mild mitral valve calcification. Tricuspid Valve The tricuspid valve leaflets are normal. There is no significant tricuspid valve stenosis. There is mild tricuspid valve regurgitation. No pulmonary hypertension, estimated pulmonary arterial systolic pressure is 35 mmHg. Pericardium/Pleural The pericardium appears normal. There is no pericardial effusion. Inferior Vena Cava Dilated inferior vena cava with <50% collapse upon inspiration consistent with elevated right atrial pressure, 15 mmHg. Aorta The aortic root size at the sinus of Valsalva is normal. The prox ascending aorta size is normal. Left Ventricular Outflow Tract Name Value Normal LVOT 2D LVOT Diameter 2.0 cm LVOT Doppler LVOT Peak Velocity 101 cm/s LVOT Peak Gradient 4 mmHg LVOT Mean Gradient 2 mmHg LVOT VTI 19 cm LVOT VTI/AV VTI Ratio 0.6 LVOT Stroke Volume 57 ml LVOT CO 5.1 l/min LVOT CI 3.6 l/min/m2 Pulmonic Valve Name Value Normal RVOT Doppler RVOT Peak Velocity 78 cm/s RVOT Peak Gradient 2 mmHg PV Doppler PV Peak Velocity 98 cm/s PV Peak Gradient 4 mmHg Mitral Valve Name Value Normal MV Diastolic Function MV E Peak Velocity 68 cm/s MV A Peak Velocity 90 cm/s MV E/A 0.8 MV Decel Time (PW) 220 ms MV Annular TDI MV E/e' (Septal) 15.7 MV E/e' (Lateral) 8.8 MV E/e' (Average) 12.3 Tricuspid Valve Name Value Normal TV Regurgitation Doppler TR Peak Velocity 223 cm/s TR Peak Gradient 19 mmHg Estimated PAP/RSVP RA Pressure 15 mmHg <=5 PA Systolic Pressure 35 mmHg <36 RV Systolic Pressure 35 mmHg <36 Aortic Valve Name Value Normal AV Doppler AV Peak Velocity 158 cm/s AV Peak Gradient 10 mmHg AV Mean Gradient 5 mmHg AV VTI 33 cm AV Area (Cont Eq VTI) 1.7 cm2 >=3.0 AV Area (Cont Eq López) 2.0 cm2 AV DI (López) 0.64 AV Regurgitation 2D LVOT Area 3.1 cm2 Ventricles Name Value Normal LV Dimensions 2D/MM IVS Diastolic Thickness (2D) 1.2 cm 0.6-1.0 LVID Diastole (2D) 5.1 cm 3.8-5.2 LVIW Diastolic Thickness (2D) 1.0 cm 0.6-0.9 LVID Systole (2D) 3.7 cm 2.2-3.5 LVOT Diameter 2.0 cm LV Mass (2D Cubed) 213.89 g 67.00-162.00 LV Mass Index (2D Cubed) 152 g/m2 43-95 Relative Wall Thickness (2D) 0.38 <=0.42 LV Fractional Shortening/Ejection Fraction 2D/MM LV Fractional Shortening (2D) 27 % 27-45 LV EF (2D Teichholz) 52 % LV Diastolic Volume (4C MOD) 87 ml LV EF (4C MOD) 52 % LV Diastolic Volume (2C MOD) 129 ml LV EF (2C MOD) 63 % LV Diastolic Volume (BP MOD) 114 ml 46-106 LV Diastolic Volume Index (BP MOD) 81 ml/m2 29-61 LV Systolic Volume (BP MOD) 48 ml 14-42 LV Systolic Volume Index (BP MOD) 34 ml/m2 8-24 LV EF (BP MOD) 58 % 54-74 LV Diastolic Length (4C) 7.3 cm LV Systolic Length (4C) 6.3 cm LV Stroke Volume (4C MOD) 46 ml Atria Name Value Normal LA Dimensions LA Volume (4C A-L) 34 ml LA Volume (BP A-L) 50 ml RA Dimensions RA Systolic Major [place] Length (4C) 4.7 cm 2.2-2.8 RA Area (4C) 17.3 cm2 <=18.0 Wall Motion Scoring Report Signatures
[2025-02-26] MEDS: NITROGLYCERIN SL 0.4 MG TABLET SUBLINGUAL ×4 (00:24→09:11)
[2025-02-26] MEDS: HEPARIN SOD/D5W 100 UNITS/ML 25,000 UNITS/250 ML BAG IV CONT (00:28)
--- NOTE | 2025-02-26 02:29 | ECG_ITS ---
Test Date: 2025-02-26 02:44:45 Measurements Intervals [place] Rate: 74 P: 32 ID: [id number] QRS: 57 QRSD: 102 T: 29 QT: 403 QTc: 450 Interpretive Statements ELECTRONIC ATRIAL PACEMAKER LEFT VENTRICULAR HYPERTROPHY AND ST-T CHANGE Electronically Signed On 02-27-2025 20:37:26 CDT by Onesimo Huston D.O
--- NOTE | 2025-02-26 03:08 | PC.NURSE ---
This RN attempted to obtain 6hr trop, unsuccessful. hand or machine paster notified and called phlebotomy. Phlebotomy here to draw patient.
[2025-02-26 03:49] LABS: Troponin I 0.052 ng/mL (0.000-0.034)
--- NOTE | 2025-02-26 03:59 | PC.NURSE ---
Patient called out and stated she peed the bed. This RN went into room, spoke with patient about how she performs her ADLs at home. Patient states she lives at home and walks, gets around and if she needs help she asks her sons. This RN changed patients bed, gave new linens and changed gown with patient assisting. Patient has call light within reach, BSC placed at bedside.
--- NOTE | 2025-02-26 05:51 | ADMGEN ---
This patient, Teagan Sigala, was admitted to IMU Room 210-01 on 02/26/25 at 0525. Patient/family oriented to hospital policies and general routines including ID bracelet, bed and alarms, visiting hours, pain management, procedures, bathroom and other care routines, personal items, smoking policy, room service/diet, and visiting hours. Information on how to activate the Rapid Response Team has been discussed. Patient/Family are encouraged to report perceived risks to care and to ask questions if they do not understand what they are told or what they should do.
[2025-02-26 06:44] LABS: Hematocrit 33.1 % (37.0-47.0); Hemoglobin 9.3 g/dL (12.0-15.0); Immature Granulocyte Percent A 1.6 % (0-0.5); Lymphocytes Absolute Auto 1.59 K/mm3 (0.9-3.2); Mean Corpuscular HGB Conc 28.1 g/dl (32-36); Mean Corpuscular Hemoglobin 22.4 pg (26-34); Mean Corpuscular Volume 79.6 fl (80-100); Nucleated Red Blood Cells Absolute Auto 0.000 K/mm3 (0.0-0.012); Nucleated Red Blood Cells Perc 0.0 % (0.0-0.2); Platelet Count Result 297 k/mm3 (150-375); Red Blood Count 4.16 M/mm3 (4.2-5.4); White Blood Count 7.7 K/mm3 (4.5-10.0)
[2025-02-26 06:55] LABS: INR 1.1; Prothrombin Time 14.7 Seconds (11.1-14.7)
[2025-02-26 06:56] LABS: Partial Thromboplastin Time 40.6 Seconds (22.3-36.8)
[2025-02-26 07:42] LABS: Alanine Aminotransferase 15 U/L (6-35); Albumin Level 2.7 g/dL (3.5-5.1); Alkaline Phosphatase 105 U/L (38-126); Anion Gap 4 mmol/L (4-12); Aspartate Amino Transferase 33 U/L (14-36); Bilirubin,Total 0.3 mg/dL (0.2-1.3); Blood Urea Nitrogen 22 mg/dL (7-17); Calcium 7.7 mg/dL (8.4-10.2); Carbon Dioxide 29 mmol/L (22-30); Chloride 104 mmol/L (98-107); Estimated CRCL calculation 31 ml/min; Estimated Glomerular Filt Rate 56; Glucose 75 mg/dL (65-110); Potassium 3.0 mmol/L (3.4-5.0); Sodium 137 mmol/L (137-145); Total Protein 5.3 g/dL (6.3-8.2)
[2025-02-26 07:43] LABS: Anisocytosis 2+; Hypochromasia 2+; Schistocytes Rare
[2025-02-26 07:44] LABS: Ovalocytes Occasional
--- NOTE | 2025-02-26 07:58 | P.HP_ITS ---
H&P: HPI History of Present Illness Date/Time: 02/26/25 07:58 Chief Complaint: Chest pain Narrative: Teagan Sigala is a 74 year old female with a past medical history of CAD with prior cardiac stent, ICD placement, HTN, CVA, COPD, GERD, CKD and malingering who presented to the hospital for chest pain for the past week. She was recently seen in the hospital but left AMA on 02/15/2025 for similar complaints of chest pain. She states I wasn't getting any better so I left, but then I got worse. She states the chest pain is in the center of her chest and radiates to both her arm and her jaw. Also endorses associated shortness of breath, a non-productive cough, nausea, non-specific abdominal pain, a headache and some dizziness. All of these symptoms reportedly started a week ago and have gotten worse over the p ast 24 hours prior to admission. She states that any movement or exertion makes all of her symptoms worse and resting makes her symptoms better but not completely gone. Inital troponins were uptrending in the ER and she was subsequently placed on heparin for ACS. ED workup: 98.1F, 76 HR, 19RR, 127/65, 99% on RA WBC 14.1, HGB 10.7, HCT 36.7, PLT 3-97, sodium 136, potassium 3.4, BUN 20, creatinine 0.93, glucose 101, LFTs WNL, calcium 8.5, lipase 293 Troponin: 0.043 -> 0.052 -> 0.032 EKG: Electronic atrial pacemaker, left ventricular hypertrophy Chest x-ray: Retrocardiac consolidation may represent atelectasis and/or pneumonia, small left pleural effusion Review of Systems Review of Systems: All systems reviewed & are unremarkable except as noted in HPI and below PMFSH Family History Family History Mother Myocardial infarct Cardiovascular disease Hypertension CHF (congestive heart failure) Father Hypertension Social History Social History Years smoked: 49 Smoking status: Current every day smoker Tobacco type: cigarettes Second hand tobacco smoke exposure: Yes Alcohol intake: never Substance use: never Substance use type: does not use Lack of Transportation: No Lack of Food: Never True Current Housing: I Have Housing Concerned About Future Housing: No Difficulty Paying Gas/Electric Bills: No Difficulty Paying for Meds: No Currently Unemployed: No Education: High School Diploma/GED Difficulty w/ Childcare or Family Care: No Spiritual care concerns: No Meds Home Medications and Allergies Home Medications ?Medication ?Instructions ?Recorded ?Confirmed ?Type albuterol sulfate 90 mcg/actuation 1 inh inhalation QI D PRN shortness 02/26/25 02/26/25 History aerosol inhaler of breath or wheezing apixaban 2.5 mg tablet (Eliquis) 2.5 mg PO BID 5 02/26/25 History aspirin 81 mg tablet,delayed 81 mg PO DAILY 02/26/25 0 02/26/25 History release (Adult Aspirin Regimen) doxycycline hyclate 100 mg capsule 100 mg PO Q12H 02/0102/26/25 History gabapentin 100 mg capsule 100 mg PO DAILY 02/26/25 History losartan 100 mg tablet 100 mg PO DAILY 02/26/25 History mirtazapine 15 mg tablet 15 mg PO HS 02/26/25 5 History naproxen 500 mg tablet 500 mg PO Q12H 02/26/2502/01 History nitroglycerin 0.4 mg sublingual 0.4 mg sublingual Q5M PRN chest 02/26/25 02/26/25 History tablet pain nortriptyline 10 mg capsule 10 mg PO HS 02/26/2502/26 History ondansetron 4 mg disintegrating 4 mg translingual Q8H PRN nausea 02/26/25 02/26/25 History tablet and vomiting oxycodone-acetaminophen 7.5 mg-325 1 tablet PO BID PRN pain (scale 02/26/25 02/26/25 History mg tablet score 7-10) pantoprazole 40 mg tablet,delayed 40 mg PO QAM 5 02/26/25 History release prednisone 5 mg tablet 5 mg PO DAILY 02/26/2502/26 History sumatriptan succinate 100 mg 100 mg PO BID PRN migrain e headache 02/26/25 02/26/25 History tablet (Imitrex) tizanidine 4 mg tablet 4 mg PO QID PRN muscle spast icity 02/26/25 02/26/25 History trazodone 100 mg tablet 100 mg PO HS 02/26/25 History Allergies Allergy/AdvReac Type Severity Reaction Status Date / Time amphetamine (From Adderall) Allergy Unknown Unknown Verified 02/26/25 06:24 dextroamphetamine (From Allergy Unknown Unknown Verified 02/26/25 06:24 Adderall) lorazepam Allergy Unknown Agitated Verified 02/26/25 06:24 Penicillins Allergy Unknown Swelling Verified 02/26/25 06:24 of Lip/Tongue/Throat Sulfa (Sulfonamide AdvReac Unknown Nausea Verified 02/26/25 06:24 Antibiotics) Vital Signs Vital Signs - 24 hr 02/25/25 18:54 02/25/25 19:21 02/25/25 19:28 Temperature 98.1 F Pulse Rate 76 75 75 Respiratory Rate 22 H 32 H Blood Pressure 156/79 H Pulse Oximetry 98 97 Oxygen Delivery Room Air 02/25/25 19:28 02/25/25 19:30 02/25/25 19:45 Temperature Pulse Rate 75 79 Respiratory Rate 29 H 25 H Blood Pressure Pulse Oximetry 96 96 97 Oxygen Delivery Room Air 02/25/25 19:52 02/25/25 20:00 02/25/25 20:02 Temperature Pulse Rate 82 75 74 Respiratory Rate 22 H 22 H 22 H Blood Pressure 170/81 H 175/83 H Pulse Oximetry 95 96 95 Oxygen Delivery 02/25/25 20:30 02/25/25 20:32 02/25/25 20:45 Temperature Pulse Rate 73 73 76 Respiratory Rate 21 H 20 21 H Blood Pressure 112/52 L Pulse Oximetry 96 Oxygen Delivery 02/25/25 21:00 02/25/25 21:01 02/25/25 21:15 Temperature Pulse Rate 76 87 74 Respiratory Rate 21 H 19 19 Blood Pressure 110/57 L Pulse Oximetry Oxygen Delivery 02/25/25 21:30 02/25/25 21:31 02/25/25 21:45 Temperature Pulse Rate 88 74 76 Respiratory Rate 20 20 19 Blood Pressure 116/66 Pulse Oximetry 97 Oxygen Delivery 02/25/25 22:00 02/25/25 22:01 02/25/25 22:15 Temperature Pulse Rate 71 75 71 Respiratory Rate 20 20 19 Blood Pressure 127/65 Pulse Oximetry Oxygen Delivery 02/25/25 22:30 02/25/25 22:45 02/25/25 22:50 Temperature Pulse Rate 75 79 83 Respiratory Rate 22 H 20 22 H Blood Pressure Pulse Oximetry 98 100 100 Oxygen Delivery 02/25/25 22:55 02/25/25 22:56 02/25/25 23:00 Temperature Pulse Rate 73 78 73 Respiratory Rate 19 16 18 Blood Pressure Pulse Oximetry 99 98 Oxygen Delivery 02/25/25 23:06 02/25/25 23:15 02/25/25 23:30 Temperature Pulse Rate 77 75 76 Respiratory Rate 19 18 19 Blood Pressure 123/76 Pulse Oximetry Oxygen Delivery 02/25/25 23:31 02/25/25 23:45 02/26/25 00:00 Temperature Pulse Rate 76 75 74 Respiratory Rate 19 19 19 Blood Pressure 117/88 Pulse Oximetry Oxygen Delivery 02/26/25 00:01 02/26/25 00:15 02/26/25 00:30 Temperature Pulse Rate 73 74 79 Respiratory Rate 18 24 H 19 Blood Pressure 121/66 Pulse Oximetry Oxygen Delivery 02/26/25 00:31 02/26/25 00:45 02/26/25 01:00 Temperature Pulse Rate 81 75 77 Respiratory Rate 17 15 20 Blood Pressure 126/68 Pulse Oximetry Oxygen Delivery 02/26/25 01:01 02/26/25 01:15 02/26/25 01:30 Temperature Pulse Rate 77 75 77 Respiratory Rate 17 18 17 Blood Pressure 121/65 Pulse Oximetry Oxygen Delivery 02/26/25 01:31 02/26/25 01:45 02/26/25 02:00 Temperature Pulse Rate 74 76 75 Respiratory Rate 17 22 H 18 Blood Pressure 139/63 Pulse Oximetry Oxygen Delivery 02/26/25 02:01 02/26/25 02:15 02/26/25 02:30 Temperature Pulse Rate 76 75 74 Respiratory Rate 16 17 25 H Blood Pressure 133/88 Pulse Oximetry Oxygen Delivery 02/26/25 02:31 02/26/25 02:32 02/26/25 02:45 Temperature Pulse Rate 74 74 80 Respiratory Rate 24 H 24 H 19 Blood Pressure 120/85 Pulse Oximetry 97 Oxygen Delivery 02/26/25 03:00 02/26/25 03:02 02/26/25 03:15 Temperature Pulse Rate 75 86 80 Respiratory Rate 18 18 19 Blood Pressure 110/63 Pulse Oximetry Oxygen Delivery 02/26/25 03:30 02/26/25 03:31 02/26/25 03:45 Temperature Pulse Rate 77 75 75 Respiratory Rate 19 26 H 17 Blood Pressure 122/55 L Pulse Oximetry Oxygen Delivery 02/26/25 04:00 02/26/25 04:03 02/26/25 04:15 Temperature 97.6 F Pulse Rate 75 75 82 Respiratory Rate 23 H 23 H 17 Blood Pressure 104/56 L Pulse Oximetry 97 Oxygen Delivery 02/26/25 05:09 02/26/25 05:56 Temperature 98.2 F Pulse Rate 74 63 Respiratory Rate 18 19 Blood Pressure 118/51 L 144/71 H Pulse Oximetry 97 96 Oxygen Delivery Exam Narrative: Gen - chronically ill appearing female in no acute respiratory distress who is nontoxic-appearing lying semi recumbent in bed HEENT - normocephalic. Atraumatic. Pupils equal round and reactive. Extraocular motions intact. Sclera clear and anicteric. Nares patent. Oropharynx was clear. No oral lesions. Moist mucous membranes. Tongue was midline. Palate lorene symmetrically. No facial asymmetry. Neck - neck was supple. No dominant adenopathy, thyromegaly or masses. Chest - lungs are clear to auscultation bilaterally. No wheezes or crackles. Breast exam was deferred. CV - heart was regular rate and rhythm. S1-S2. No murmurs gallops or rubs. Abd - abdomen was soft. Nontender. Nondistended. Positive bowel sounds. No organomegaly or masses. Ext - no clubbing, cyanosis or edema. 2+ DP pulses bilaterally. Neuro - patient is alert and oriented x4. Strength is 5/5 in both upper and lower extremities. Cranial nerves 2-12 are intact. Speech is clear. Psych - normal mood and affect. Patient is pleasant and cooperative. Skin - warm and dry. No rashes noted. H&P: Results Labs Labs: Short CBC 02/25/25 02/26/25 Range/Units 19:27 06:37 WBC 14.1 H 7.7 (4.5-10.0) K/mm3 Hgb 10.7 L 9.3 L (12.0-15.0) g/dL Hct 36.7 L 33.1 L (37.0-47.0) % Plt Count 397 H 297 (150-375) k/mm3 BMP 02/25/25 02/26/25 19:27 06:32 Sodium 136 L 137 Potassium 3.4 3.0 L Chloride 102 104 Carbon Dioxide 27 29 BUN 20 H 22 H Creatinine 0.93 0.97 Glucose 101 75 Calcium 8.5 7.7 L Cardiac Enzymes 02/25/25 02/25/25 02/26/25 Range/Units 19:27 22:25 03:15 Troponin I 0.032 0.043 H* D 0.052 H* D (0.000-0.034) ng/mL Liver Function 02/25/25 02/26/25 Range/Units 19:27 06:32 Total Bilirubin 0.5 0.3 (0.2-1.3) mg/dL AST 25 33 (14-36) U/L ALT 16 15 (6-35) U/L Alkaline Phosphatase 142 H 105 (38-126) U/L Albumin 3.3 L 2.7 L (3.5-5.1) g/dL Assessment and Plan Assessment and plan (1) Acute non-ST elevation myocardial infarction (NSTEMI): Code(s): I21.4 - Non-ST elevation (NSTEMI) myocardial infarction Status: Acute Assessment and Plan: * Monitor vital signs, I&Os, chest pain, shortness of breath and patient is a fall risk * Monitor PTT, serial troponins, Serum electrolytes, and cbc * Keep serum potassium >4 and keep magnesium >2 * Heparin drip per ACS protocol * Monitor for bloody bowel movements, chest pain, SOB or dizziness/lighthead edness * Obtain an Echocardiogram * DVT Px: Heparin Drip * Cardiology consult * Start PPI, continue aspirin, apixaban, and losartan * Transthoracic echocardiogram * Continue observation (2) COPD (chronic obstructive pulmonary disease): Code(s): J44.9 - Chronic obstructive pulmonary disease, unspecified Status: Acute Assessment and Plan: * Monitor vital signs, I&Os, neuro status and patient is a fall risk * Monitor serum electrolytes, cultures and CBC * Monitor Oxygen saturation, Oxygen via NC; wean oxygen as tolerated, keep SpO2 greater than 88% * Send sputum cultures if possible * Duonebz q6H * Solu-Medrol 40 mg IVq6H (3) GERD (gastroesophageal reflux disease): Code(s): K21.9 - Gastro-esophageal reflux disease without esophagitis Status: Acute Assessment and Plan: * During previous hospitalization, she was being worked up for non-cardiac related chest pain through GI * Per GI on 02/15: Having ruled out cardiac etiologies, the most likely explanation for this episodes is esophageal spasms. This could be related to GERD old, with or without esophagitis, or a primary esophageal motility dis order such as achalasia. * Was planning for EGD/Colonoscopy * Will consult GI again - appreciate further recommendation for possible non- cardiac cause of chest pain * Continue pantoprazole, may add on GI cocktail (4) CAD (coronary artery disease): Code(s): I25.10 - Atherosclerotic heart disease of [place] coronary artery without angina pectoris Status: Acute Assessment and Plan: * Continue at-home medications (5) Smoking history: Code(s): Z87.891 - Personal history of nicotine dependence Status: Acute Assessment and Plan: * Educated on smoking cessation * Will provide nicotine patch if desired (6) Hypertension: Code(s): I10 - Essential (primary) hypertension Status: Acute Assessment and Plan: * Patient's blood pressure was reviewed on 02/26 * Blood pressure remains well controlled * Will continue current medications (7) Malingering: Code(s): Z76.5 - Malingerer [conscious simulation] Status: Acute Quality VTE Prophylaxis VTE prophylaxis: mechanical ordered
[2025-02-26] MEDS: POTASSIUM CHLORIDE 20 MEQ ER TABLET 40 MEQ PO (08:35)
--- NOTE | 2025-02-26 10:06 | ECG_ITS ---
Test Date: 2025-02-26 10:26:24 Measurements Intervals [place] Rate: 73 P: -40 RI: 141 QRS: 32 QRSD: 98 T: 12 QT: 410 QTc: 453 Interpretive Statements ELECTRONIC ATRIAL PACEMAKER LEFT VENTRICULAR HYPERTROPHY AND ST-T CHANGE Electronically Signed On 02-27-2025 20:40:08 CDT by Onesimo Huston D.O
[2025-02-26 10:56] LABS: Troponin I 0.032 ng/mL (0.000-0.034)
[2025-02-26] MEDS: HYDROcodone/acetaminophen (*CRX) 5-325 MG TABLET 1 TAB PO ×2 (11:24→17:18)
--- NOTE | 2025-02-26 11:41 | P.CONCA_ITS ---
Assessment and Plan Assessment and plan (1) Chest pain: Code(s): R07.9 - Chest pain, unspecified Status: Acute Plan Atypical chest pain severe persistent was no dynamic EKG changes and no significant troponin elevation Hypertension controlled History of V-tach status post ICD History of stroke GERD Possible malingering Plan Start PPI Aspirin 81 mg daily Apixaban 2.5 mg b.i.d. Losartan 100 mg daily Transthoracic echocardiogram Continue observation Pain control per primary team History of Present Illness History of Present Illness Consult date/time: 02/26/25 11:41 Reason For Visit: CP,NSTEMI Narrative: acute chest pain Review of Systems 2 Review of Systems: 74-year-old female patient presented to the hospital with acute episode of chest pain. Chest pain started last night retrosternal radiating to the back. Chest pain is severe persistent sharp and worse with breathing. She had no prior similar episodes. Patient has history of coronary artery disease with prior PCI. Patient does not recall the date and details of PCI. Although patient denies she has not had severe chest pain before, patient was recently admitted to the hospital and left AMA because of inadequate treatment of her chest pain. She was labeled in the chart as possible malingering. All systems reviewed & are unremarkable except as noted in HPI and below PMFSH Family History Family History Mother Myocardial infarct Cardiovascular disease Hypertension CHF (congestive heart failure) Father Hypertension Social History Social History Years smoked: 49 Smoking status: Current every day smoker Tobacco type: cigarettes Second hand tobacco smoke exposure: Yes Alcohol intake: never Substance use: never Substance use type: does not use Lack of Transportation: No Lack of Food: Never True Current Housing: I Have Housing Concerned About Future Housing: No Difficulty Paying Gas/Electric Bills: No Difficulty Paying for Meds: No Currently Unemployed: No Education: High School Diploma/GED Difficulty w/ Childcare or Family Care: No Spiritual care concerns: No Meds Home Medications and Allergies Home Medications ?Medication ?Instructions ?Recorded ?Confirmed ?Type albuterol sulfate 90 mcg/actuation 1 inh inhalation QI D PRN shortness 02/26/25 02/26/25 History aerosol inhaler of breath or wheezing apixaban 2.5 mg tablet (Eliquis) 2.5 mg PO BID 5 02/26/25 History aspirin 81 mg tablet,delayed 81 mg PO DAILY 02/26/25 0 02/26/25 History release (Adult Aspirin Regimen) doxycycline hyclate 100 mg capsule 100 mg PO Q12H 02/0102/26/25 History gabapentin 100 mg capsule 100 mg PO DAILY 02/26/25 History losartan 100 mg tablet 100 mg PO DAILY 02/26/25 History mirtazapine 15 mg tablet 15 mg PO HS 02/26/25 5 History naproxen 500 mg tablet 500 mg PO Q12H 02/26/2502/01 History nitroglycerin 0.4 mg sublingual 0.4 mg sublingual Q5M PRN chest 02/26/25 02/26/25 History tablet pain nortriptyline 10 mg capsule 10 mg PO HS 02/26/2502/26 History ondansetron 4 mg disintegrating 4 mg translingual Q8H PRN nausea 02/26/25 02/26/25 History tablet and vomiting oxycodone-acetaminophen 7.5 mg-325 1 tablet PO BID PRN pain (scale 02/26/25 02/26/25 History mg tablet score 7-10) pantoprazole 40 mg tablet,delayed 40 mg PO QAM 5 02/26/25 History release prednisone 5 mg tablet 5 mg PO DAILY 02/26/2502/26 History sumatriptan succinate 100 mg 100 mg PO BID PRN migrain e headache 02/26/25 02/26/25 History tablet (Imitrex) tizanidine 4 mg tablet 4 mg PO QID PRN muscle spast icity 02/26/25 02/26/25 History trazodone 100 mg tablet 100 mg PO HS 02/26/25 History Allergies Allergy/AdvReac Type Severity Reaction Status Date / Time amphetamine (From Adderall) Allergy Unknown Unknown Verified 02/26/25 06:24 dextroamphetamine (From Allergy Unknown Unknown Verified 02/26/25 06:24 Adderall) lorazepam Allergy Unknown Agitated Verified 02/26/25 06:24 Penicillins Allergy Unknown Swelling Verified 02/26/25 06:24 of Lip/Tongue/Throat Sulfa (Sulfonamide AdvReac Unknown Nausea Verified 02/26/25 06:24 Antibiotics) Vital Signs Vital Signs - 24 hr 02/25/25 18:54 02/25/25 19:21 02/25/25 19:28 Temperature 36.7 C Pulse Rate 76 75 75 Respiratory Rate 22 H 32 H Blood Pressure 156/79 H Pulse Oximetry 98 97 Oxygen Delivery Room Air 02/25/25 19:28 02/25/25 19:30 02/25/25 19:45 Temperature Pulse Rate 75 79 Respiratory Rate 29 H 25 H Blood Pressure Pulse Oximetry 96 96 97 Oxygen Delivery Room Air 02/25/25 19:52 02/25/25 20:00 02/25/25 20:02 Temperature Pulse Rate 82 75 74 Respiratory Rate 22 H 22 H 22 H Blood Pressure 170/81 H 175/83 H Pulse Oximetry 95 96 95 Oxygen Delivery 02/25/25 20:30 02/25/25 20:32 02/25/25 20:45 Temperature Pulse Rate 73 73 76 Respiratory Rate 21 H 20 21 H Blood Pressure 112/52 L Pulse Oximetry 96 Oxygen Delivery 02/25/25 21:00 02/25/25 21:01 02/25/25 21:15 Temperature Pulse Rate 76 87 74 Respiratory Rate 21 H 19 19 Blood Pressure 110/57 L Pulse Oximetry Oxygen Delivery 02/25/25 21:30 02/25/25 21:31 02/25/25 21:45 Temperature Pulse Rate 88 74 76 Respiratory Rate 20 20 19 Blood Pressure 116/66 Pulse Oximetry 97 Oxygen Delivery 02/25/25 22:00 02/25/25 22:01 02/25/25 22:15 Temperature Pulse Rate 71 75 71 Respiratory Rate 20 20 19 Blood Pressure 127/65 Pulse Oximetry Oxygen Delivery 02/25/25 22:30 02/25/25 22:45 02/25/25 22:50 Temperature Pulse Rate 75 79 83 Respiratory Rate 22 H 20 22 H Blood Pressure Pulse Oximetry 98 100 100 Oxygen Delivery 02/25/25 22:55 02/25/25 22:56 02/25/25 23:00 Temperature Pulse Rate 73 78 73 Respiratory Rate 19 16 18 Blood Pressure Pulse Oximetry 99 98 Oxygen Delivery 02/25/25 23:06 02/25/25 23:15 02/25/25 23:30 Temperature Pulse Rate 77 75 76 Respiratory Rate 19 18 19 Blood Pressure 123/76 Pulse Oximetry Oxygen Delivery 02/25/25 23:31 02/25/25 23:45 02/26/25 00:00 Temperature Pulse Rate 76 75 74 Respiratory Rate 19 19 19 Blood Pressure 117/88 Pulse Oximetry Oxygen Delivery 02/26/25 00:01 02/26/25 00:15 02/26/25 00:30 Temperature Pulse Rate 73 74 79 Respiratory Rate 18 24 H 19 Blood Pressure 121/66 Pulse Oximetry Oxygen Delivery 02/26/25 00:31 02/26/25 00:45 02/26/25 01:00 Temperature Pulse Rate 81 75 77 Respiratory Rate 17 15 20 Blood Pressure 126/68 Pulse Oximetry Oxygen Delivery 02/26/25 01:01 02/26/25 01:15 02/26/25 01:30 Temperature Pulse Rate 77 75 77 Respiratory Rate 17 18 17 Blood Pressure 121/65 Pulse Oximetry Oxygen Delivery 02/26/25 01:31 02/26/25 01:45 02/26/25 02:00 Temperature Pulse Rate 74 76 75 Respiratory Rate 17 22 H 18 Blood Pressure 139/63 Pulse Oximetry Oxygen Delivery 02/26/25 02:01 02/26/25 02:15 02/26/25 02:30 Temperature Pulse Rate 76 75 74 Respiratory Rate 16 17 25 H Blood Pressure 133/88 Pulse Oximetry Oxygen Delivery 02/26/25 02:31 02/26/25 02:32 02/26/25 02:45 Temperature Pulse Rate 74 74 80 Respiratory Rate 24 H 24 H 19 Blood Pressure 120/85 Pulse Oximetry 97 Oxygen Delivery 02/26/25 03:00 02/26/25 03:02 02/26/25 03:15 Temperature Pulse Rate 75 86 80 Respiratory Rate 18 18 19 Blood Pressure 110/63 Pulse Oximetry Oxygen Delivery 02/26/25 03:30 02/26/25 03:31 02/26/25 03:45 Temperature Pulse Rate 77 75 75 Respiratory Rate 19 26 H 17 Blood Pressure 122/55 L Pulse Oximetry Oxygen Delivery 02/26/25 04:00 02/26/25 04:03 02/26/25 04:15 Temperature 36.4 C Pulse Rate 75 75 82 Respiratory Rate 23 H 23 H 17 Blood Pressure 104/56 L Pulse Oximetry 97 Oxygen Delivery 02/26/25 05:09 02/26/25 05:34 02/26/25 05:40 Temperature Pulse Rate 74 76 63 Respiratory Rate 18 19 Blood Pressure 118/51 L Pulse Oximetry 97 96 Oxygen Delivery Room Air 02/26/25 05:56 02/26/25 06:00 02/26/25 08:00 Temperature 36.8 C 36.5 C Pulse Rate 63 76 75 Respiratory Rate 19 20 Blood Pressure 144/71 H 147/59 H Pulse Oximetry 96 94 Oxygen Delivery Exam 2 Const: General: comfortable and no acute distress Other: Able to lie flat HENMT: Face/Nose/Sinus: Normal nares present and no epistaxis Mouth: Yes moist mucous membranes Eyes: Sclera: sclerae normal Pupils: Equal, round and reactive pupils present Neck: Neck: supple and no JVD Carotids: no bruits Chest: Other: Chest wall tenderness and pain is reproducible Resp: Auscultation: clear to auscultation bilaterally and lung sounds not diminished Other: No chest wall tenderness Cardio: Rate: regular rate Rhythm: regular rhythm Heart sounds: no gallops, no murmurs and no rubs GI: GI Palp: Yes Soft to palpation and No Tenderness to palpation present (GI) Auscultation: normal bowel sounds Skin: General skin exam: normal color, rashes and/or lesions noted and no erythema Other: Warm Neuro: Cranial nerves: Yes Equal, round and reactive pupils present Speech: normal speech Other: No obvious focal deficit or facial asymmetry Extrem: General: no edema Other: Normal capillary refills Intact distal pulses. Results Labs and Meds 02/26/25 06:37 02/26/25 06:32 Lab results: Cardiac Enzymes 02/25/25 02/25/25 02/26/25 Range/Units 19:27 22:25 03:15 AST 25 (14-36) U/L Troponin I 0.032 0.043 H* D 0.052 H* D (0.000-0.034) ng/mL 02/26/25 02/26/25 Range/Units 06:32 10:23 AST 33 (14-36) U/L Troponin I 0.032 D (0.000-0.034) ng/mL Coagulation 02/25/25 02/26/25 Range/Units 19:27 06:37 PT 13.4 14.7 (11.1-14.7) Seconds APTT 25.6 40.6 H (22.3-36.8) Seconds CBC 02/25/25 02/26/25 Range/Units 19: 06:37 WBC 14.1 H 7.7 (4.5-10.0) K/mm3 RBC 4.76 4.16 L (4.2-5.4) M/mm3 Hgb 10.7 L 9.3 L (12.0-15.0) g/dL Hct 36.7 L 33.1 L (37.0-47.0) % Plt Count 397 H 297 (150-375) k/mm3 Lymph # (Auto) 1.70 1.59 (0.9-3.2) K/mm3 [place] # (Auto) 1.2 H 0.7 H (0.1-0.6) K/mm3 Eos # (Auto) 0.2 0.3 (0-0.3) K/mm3 Baso # (Auto) 0.1 0.1 (0.0-0.1) K/mm3 Comprehensive Metabolic Panel 02/25/25 02/26/25 Range/Units 19: 06:32 Sodium 136 L 137 (137-145) mmol/L Potassium 3.4 3.0 L (3.4-5.0) mmol/L Chloride 102 104 (98-107) mmol/L Carbon Dioxide 27 29 (22-30) mmol/L BUN 20 H 22 H (7-17) mg/dL Creatinine 0.93 0.97 (0.7-1.0) mg/dL Glucose 101 75 (65-110) mg/dL Calcium 8.5 7.7 L (8.4-10.2) mg/dL AST 25 33 (14-36) U/L ALT 16 15 (6-35) U/L Alkaline Phosphatase 142 H 105 (38-126) U/L Total Protein 6.0 L 5.3 L (6.3-8.2) g/dL Albumin 3.3 L 2.7 L (3.5-5.1) g/dL Intake and Output 02/25/25 02/26/25 02/26/25 23:59 07:59 15:59 Intake Total 33.1 240 Output Total 0 Balance 33.1 240 Intake: IV 33.1 Heparin Sod/D5w 100 Units/ml 25 33.1 ,000 units In 250 ml @ 700 UNITS/HR 7 mls/hr IV CONT .Q24H [facility] Rx#:[id number] Oral 240 Output: Catheter Urine 0 External/Condom 0 Other: # Incontinent Voids 1 Number of Bowel Movements Today 0 Patient Weight 02/26/25 23:59 Weight 44 kg
[2025-02-26 14:00] LABS: Partial Thromboplastin Time 69.4 Seconds (22.3-36.8)
[2025-02-26] MEDS: MORPHINE SULFATE (*CRX) 2 MG/ML INJ 0.5 MG IV PUSH ×2 (14:04→18:49)
[2025-02-26] MEDS: LOSARTAN POTASSIUM 100 MG TABLET PO (16:06)
[2025-02-26] MEDS: KETOROLAC 15 MG/ML VIAL (*BKC) IV PUSH (20:20)
[2025-02-26] MEDS: MIRTAZAPINE 15 MG TABLET PO (20:21)
[2025-02-26] MEDS: NORTRIPTYLINE HCL 10 MG CAPSULE PO (20:21)
[2025-02-26] MEDS: IPRATROPIUM 0.5 MG/ALBUTEROL SULFATE 2.5 MG AMPUL.NEB 3 ML INHALATION (20:25)
--- NOTE | 2025-02-26 20:49 | PC.NURSE ---
pts pain medicine was given at 2019 [facility] was in the room to witness pt getting medicine.
[2025-02-26] MEDS: TIZANIDINE HCL 4 MG TABLET PO (20:57)
[2025-02-26 22:16] LABS: Partial Thromboplastin Time 89.9 Seconds (22.3-36.8)
[2025-02-26] MEDS: PROCHLORPERAZINE EDISYLATE 10 MG/2 ML VIAL IV PUSH (22:31)
[2025-02-27] VITALS (14 sets, daily range): BP systolic 107–156; BP diastolic 39–58; PULSE 68–72; RESP 16–20; TEMP 36.4–37.2; O2SAT 96–99
[2025-02-27] MEDS: KETOROLAC 15 MG/ML VIAL (*BKC) IV PUSH ×3 (01:55→18:35)
[2025-02-27] MEDS: IPRATROPIUM 0.5 MG/ALBUTEROL SULFATE 2.5 MG AMPUL.NEB 3 ML INHALATION ×2 (02:19→14:33)
--- NOTE | 2025-02-27 02:19 | PCRCNOTE ---
Pt refused 0200 tx. RN notified and told to call [facility]CS if patient changes her mind.
[2025-02-27 05:45] LABS: Hematocrit 35.7 % (37.0-47.0); Hemoglobin 9.7 g/dL (12.0-15.0); Immature Granulocyte Percent A 0.9 % (0-0.5); Lymphocytes Absolute Auto 1.41 K/mm3 (0.9-3.2); Mean Corpuscular HGB Conc 27.2 g/dl (32-36); Mean Corpuscular Hemoglobin 22.7 pg (26-34); Mean Corpuscular Volume 83.4 fl (80-100); Nucleated Red Blood Cells Absolute Auto 0.000 K/mm3 (0.0-0.012); Nucleated Red Blood Cells Perc 0.0 % (0.0-0.2); Platelet Count Result 289 k/mm3 (150-375); Red Blood Count 4.28 M/mm3 (4.2-5.4); White Blood Count 6.7 K/mm3 (4.5-10.0)
[2025-02-27 05:53] LABS: Anisocytosis 1+; Hypochromasia 1+; Ovalocytes 1+; Schistocytes None Seen
[2025-02-27 06:03] LABS: Partial Thromboplastin Time 55.7 Seconds (22.3-36.8)
[2025-02-27 06:07] LABS: Alanine Aminotransferase 17 U/L (6-35); Albumin Level 2.9 g/dL (3.5-5.1); Alkaline Phosphatase 99 U/L (38-126); Anion Gap 4 mmol/L (4-12); Aspartate Amino Transferase 29 U/L (14-36); Bilirubin,Total 0.3 mg/dL (0.2-1.3); Blood Urea Nitrogen 26 mg/dL (7-17); Calcium 7.7 mg/dL (8.4-10.2); Carbon Dioxide 28 mmol/L (22-30); Chloride 104 mmol/L (98-107); Estimated CRCL calculation 30 ml/min; Estimated Glomerular Filt Rate 56; Glucose 121 mg/dL (65-110); Potassium 4.2 mmol/L (3.4-5.0); Sodium 136 mmol/L (137-145); Total Protein 5.5 g/dL (6.3-8.2)
--- NOTE | 2025-02-27 08:44 | PCRCNOTE ---
Pt. refused her breathing tx ; provider Jan HANSON called and notified.
[2025-02-27] MEDS: LOSARTAN POTASSIUM 100 MG TABLET PO (09:41)
[2025-02-27] MEDS: PANTOPRAZOLE 40 MG TABLET PO (09:41)
[2025-02-27] MEDS: GABAPENTIN 100 MG CAPSULE PO (09:41)
[2025-02-27] MEDS: ASPIRIN 81 MG ENTERIC TABLET PO (09:41)
--- NOTE | 2025-02-27 10:28 | P.PNIM_ITS ---
Progress Note: A&P Assessment and Plan (1) Acute non-ST elevation myocardial infarction (NSTEMI): Code(s): I21.4 - Non-ST elevation (NSTEMI) myocardial infarction Status: Acute Assessment and Plan: * Monitor vital signs, I&Os, chest pain, shortness of breath and patient is a fall risk * Monitor PTT, serial troponins, Serum electrolytes, and cbc * Keep serum potassium >4 and keep magnesium >2 * Heparin drip per ACS protocol * Monitor for bloody bowel movements, chest pain, SOB or dizziness/lightheadedness * Obtain an Echocardiogram * DVT Px: Heparin Drip * Cardiology consult * Start PPI, continue aspirin, apixaban, and losartan * Transthoracic echocardiogram * Continue observation (2) COPD (chronic obstructive pulmonary disease): Code(s): J44.9 - Chronic obstructive pulmonary disease, unspecified Status: Acute Assessment and Plan: * Monitor vital signs, I&Os, neuro status and patient is a fall risk * Monitor serum electrolytes, cultures and CBC * Monitor Oxygen saturation, Oxygen via NC; wean oxygen as tolerated, keep SpO2 greater than 88% * Send sputum cultures if possible * Duonebz q6H * Solu-Medrol 40 mg IVq6H (3) GERD (gastroesophageal reflux disease): Code(s): K21.9 - Gastro-esophageal reflux disease without esophagitis Status: Acute Assessment and Plan: * During previous hospitalization, she was being worked up for non-cardiac related chest pain through GI * Per GI on 02/15: Having ruled out cardiac etiologies, the most likely explanation for this episodes is esophageal spasms. This could be related to GERD old, with or without esophagitis, or a primary esophageal motility disorder such as achalasia. * Was planning for EGD/Colonoscopy * Will consult GI again - appreciate further recommendation for possible non- cardiac cause of chest pain * Continue pantoprazole, may add on GI cocktail (4) Vision loss, right eye: Code(s): H54.61 - Unqualified visual loss, right eye, normal vision left eye Status: Acute Assessment and Plan: * Endorsing R eye unilateral vision loss this AM * Pupils round equal and reactive * Eye does not appear to be red, swollen or tender on exam * Denies any pain with movement of the eyes * Carotid duplex US ordered, as pt has pacemaker and cant undergo brain MRA * ESR/CRP ordered * Consider ENT consult (5) CAD (coronary artery disease): Code(s): I25.10 - Atherosclerotic heart disease of [place] coronary artery without angina pectoris Status: Acute Assessment and Plan: * Continue at-home medications (6) Smoking history: Code(s): Z87.891 - Personal history of nicotine dependence Status: Acute Assessment and Plan: * Educated on smoking cessation * Will provide nicotine patch if desired (7) Hypertension: Code(s): I10 - Essential (primary) hypertension Status: Acute Assessment and Plan: * Patient's blood pressure was reviewed on 02/26 * Blood pressure remains well controlled * Will continue current medications (8) Malingering: Code(s): Z76.5 - Malingerer [conscious simulation] Status: Acute Subjective Date/time seen: 02/27/25 10:28 Interval history: 74 year old female with a past medical history of CAD with prior cardiac stent, ICD placement, HTN, CVA, COPD, GERD, CKD and malingering who presented to the hospital for chest pain for the past week. She was recently seen in the hospital but left AMA on 02/15/2025 for similar complaints of chest pain. 02/27/2025 Patient sitting in bed at time of exam. Endorses chest pain, shortness of breath, nausea, headaches, dizziness, abdominal pain, bilateral knee discomfort and lower extremity swelling. Also now endorsing unilateral vision loss in right eye. Physical exam is reassuring: heart rate regular, lung black CTA, no TTP in all 4 abd quadrants, bowel sounds normoactive, pupils equal and reactive, no evidence of trauma or swelling to lower extremities. No neurological deficit appreciated. Will obtain carotid duplex US. Cardiology plans for [facility] given echo results. Review of Systems Review of Systems: All systems reviewed & are unremarkable except as noted in HPI and below Exam Narrative: Gen - chronically ill appearing female in no acute respiratory distress who is nontoxic-appearing lying semi recumbent in bed HEENT - normocephalic. Atraumatic. Pupils equal round and reactive. Extraocular motions intact. Sclera clear and anicteric. Nares patent. Oropharynx was clear. No oral lesions. Moist mucous membranes. Tongue was midline. Palate lorene symmetrically. No facial asymmetry. Neck - neck was supple. No dominant adenopathy, thyromegaly or masses. Chest - Chest wall tenderness to palpation throughout. Lungs are clear to auscultation bilaterally. No wheezes or crackles. CV - heart was regular rate and rhythm. S1-S2. No murmurs gallops or rubs. Abd - abdomen was soft. Nontender. Nondistended. Positive bowel sounds. No organomegaly or masses. Ext - no clubbing, cyanosis or edema. 2+ DP pulses bilaterally. Neuro - patient is alert and oriented x4. Strength is 5/5 in both upper and lower extremities. Cranial nerves 2-12 are intact. Speech is clear. Psych - normal mood and affect. Patient is pleasant and cooperative. Skin - warm and dry. No rashes noted. Objective Data Vital Signs Vital Signs: Vital Signs - 24 hr 02/26/25 11:50 02/26/25 12:00 02/26/25 12:00 Temperature 97.7 F Pulse Rate 75 63 76 Respiratory Rate 18 19 Blood Pressure 138/78 Pulse Oximetry 98 96 Oxygen Delivery Room Air 02/26/25 14:00 02/26/25 15:48 02/26/25 16:00 Temperature 98.2 F Pulse Rate 74 70 63 Respiratory Rate 20 19 Blood Pressure 123/50 L Pulse Oximetry 99 96 Oxygen Delivery Room Air 02/26/25 16:00 02/26/25 18:00 02/26/25 20:00 Temperature 98.2 F Pulse Rate 75 72 71 Respiratory Rate 22 H Blood Pressure 111/54 L Pulse Oximetry 95 Oxygen Delivery 02/26/25 20:00 02/26/25 20:18 02/26/25 20:23 Temperature Pulse Rate 70 98 98 Respiratory Rate 16 16 Blood Pressure Pulse Oximetry Oxygen Delivery 02/26/25 21:23 02/26/25 23:36 02/27/25 00:00 Temperature 98.0 F Pulse Rate 87 71 Respiratory Rate 20 Blood Pressure 129/52 L Pulse Oximetry 95 95 Oxygen Delivery Room Air 02/27/25 00:00 02/27/25 02:00 02/27/25 03:54 Temperature Pulse Rate 72 70 Respiratory Rate 18 Blood Pressure Pulse Oximetry 96 96 Oxygen Delivery Room Air Room Air 02/27/25 04:00 02/27/25 04:00 02/27/25 06:00 Temperature 97.5 F L Pulse Rate 70 68 70 Respiratory Rate 20 Blood Pressure 122/52 L Pulse Oximetry 98 Oxygen Delivery 02/27/25 07:59 02/27/25 08:00 02/27/25 08:00 Temperature 98.9 F Pulse Rate 70 70 Respiratory Rate 16 Blood Pressure 156/58 H Pulse Oximetry 99 Oxygen Delivery Room Air 02/27/25 10:00 Temperature Pulse Rate 70 Respiratory Rate Blood Pressure Pulse Oximetry Oxygen Delivery Intake/Output Intake/Output: Intake & Output 02/24/25 02/25/25 02/26/25 02/27/25 23:59 23:59 23:59 23:59 Intake Total 846.7 117.1 Output Total 400 0 Balance 446.7 117.1 Meds/Results Medications: Active Medications Generic Name Dose Route Start Last Admin Trade Name Freq PRN Reason Stop Dose Admin Hydrocodone Bitart/Acetaminophen 1 tab 02/26/25 11:09 02/26/25 17:18 Hydrocodone/Acetaminophen (*Crx) 5-325 Mg Tablet PO 1 tab Q6H PRN Administration Pain Rated 4-6 Albuterol/Ipratropium 3 ml 02/26/25 14:00 02/27/25 08:39 Ipratropium 0.5 Mg/Albuterol Sulfate 2.5 Mg Ampul.Neb 3 Ml INHALATION Not Given Q6HRT KENDY Aspirin 81 mg 02/27/25 09:00 02/27/25 09:41 Aspirin 81 Mg Enteric Tablet PO 81 mg DAILY KENDY Administration Gabapentin 100 mg 02/27/25 09:00 02/27/25 09:41 Gabapentin 100 Mg Capsule PO 100 mg DAILY KENDY Administration Heparin Sodium (Porcine) 3,500 units 02/25/25 23:45 02/26/25 07:05 Heparin Sodium 5,000 Units/Ml Vial IV PUSH 3,500 units PRN PRN Administration aPTT less than 55 seconds Heparin Sodium (Porcine) 1,500 units 02/25/25 23:45 02/27/25 06:49 Heparin Sodium 5,000 Units/Ml Vial IV PUSH 1,500 units PRN PRN Administration aPTT 55 - 70 seconds Hydroxyzine HCl 25 mg 02/27/25 10:24 Hydroxyzine Hcl 25 Mg Tablet PO Q6H PRN Itching Heparin Sodium/Dextrose 25,000 units in 250 mls @ 9 mls/hr 02/25/25 23:45 02/27/25 06:48 Heparin Sodium/D5w 100 Units/Ml IV CONT 900 units/hr .Q24H KENDY 9 mls/hr Protocol Titration 900 UNITS/HR Ketorolac Tromethamine 15 mg 02/26/25 19:00 02/27/25 09:39 Ketorolac 15 Mg/Ml Vial (*Bkc) IV PUSH Not Given Q6H KENDY Losartan Potassium 100 mg 02/26/25 13:50 02/27/25 09:41 Losartan Potassium 100 Mg Tablet PO 100 mg DAILY KENDY Administration Methylprednisolone Sodium Succinate 40 mg 02/26/25 18:00 02/27/25 05:30 Methylprednisolone Sod Succ 40 Mg Vial IV PUSH 40 mg Q6HR KENDY Administration Mirtazapine 15 mg 02/26/25 21:00 02/26/25 20:21 Mirtazapine 15 Mg Tablet PO 15 mg HS KENDY Administration Morphine Sulfate 0.5 mg 02/26/25 13:45 02/26/25 18:49 Morphine Sulfate (*Crx) 2 Mg/Ml Inj IV PUSH 0.5 mg Q4H PRN Administration Pain Rated 7-10 Naproxen 500 mg 02/26/25 21:00 02/26/25 20:21 Naproxen 500 Mg Tablet PO Not Given On Hold: 02/27/25 09:00 Q12HR KENDY Nitroglycerin 0.4 mg 02/25/25 23:49 02/26/25 09:11 Nitroglycerin Sl 0.4 Mg Tablet SUBLINGUAL 0.4 mg PRN PRN Administration Chest Pain Nitroglycerin 0.4 mg 02/26/25 13:44 Nitroglycerin Sl 0.4 Mg Tablet SUBLINGUAL Q5M PRN Chest Pain Nortriptyline HCl 10 mg 02/26/25 21:00 02/26/25 20:21 Nortriptyline Hcl 10 Mg Capsule PO 10 mg HS KENDY Administration Ondansetron HCl 4 mg 02/26/25 13:44 Ondansetron Hcl Odt 4 Mg Tablet BY MOUTH Q8H PRN Nausea And Vomiting Pantoprazole Sodium 40 mg 02/27/25 09:00 02/27/25 09:41 Pantoprazole 40 Mg Tablet PO 40 mg QAM KENDY Administration Perflutren Lipid Microsphere 0 ml 02/26/25 10:07 Perflutren Lipid Microspheres 1.5 Ml Vial Diluted To 10 Ml Total Volume IV PUSH 03/01/25 10:07 ONCE PRN adequate visualization Protocol Tizanidine HCl 4 mg 02/26/25 13:44 02/26/25 20:57 Tizanidine Hcl 4 Mg Tablet PO 4 mg QID PRN Administration Muscle Spasticity Trazodone HCl 100 mg 02/26/25 21:00 02/26/25 20:20 Trazodone Hcl 50 Mg Tablet PO 100 mg HS KENDY Administration Radiology Results: ITS Impressions Chest X-Ray 02/25/25 19:58 Impression: 1: Retrocardiac consolidation may represent atelectasis and/or pneumonia. 2: Small left pleural effusion. Labs Labs: Laboratory Results - last 24 hr 02/26/25 02/26/25 02/26/25 10:23 13:16 21:59 WBC RBC Hgb Hct MCV MCH MCHC RDW Plt Count MPV Immature Gran % (Auto) Neut % (Auto) Lymph % (Auto) [place] % (Auto) Eos % (Auto) Baso % (Auto) Lymph # (Auto) [place] # (Auto) Eos # (Auto) Baso # (Auto) Abs Immat Gran (auto) Absolute Neuts (auto) Absolute Nucleated RBC Band Neutrophils % Nucleated RBC % Platelet Estimate Hypochromasia Anisocytosis Ovalocytes Schistocytes APTT 69.4 H 89.9 H Sodium Potassium Chloride Carbon Dioxide Anion Gap BUN Creatinine Estim Creat Clear Calc Estimated GFR Glucose Calcium Total Bilirubin AST ALT Alkaline Phosphatase Troponin I 0.032 D Total Protein Albumin 02/27/25 05:35 WBC 6.7 RBC 4.28 Hgb 9.7 L Hct 35.7 L MCV 83.4 MCH 22.7 L MCHC 27.2 L RDW 28.8 H Plt Count 289 MPV 9.0 Immature Gran % (Auto) 0.9 H Neut % (Auto) 71.0 Lymph % (Auto) 21.0 [place] % (Auto) 6.8 Eos % (Auto) 0.0 Baso % (Auto) 0.3 Lymph # (Auto) 1.41 [place] # (Auto) 0.5 Eos # (Auto) 0.0 Baso # (Auto) 0.0 Abs Immat Gran (auto) 0.06 H Absolute Neuts (auto) 4.8 Absolute Nucleated RBC 0.000 Band Neutrophils % Not Reportable Nucleated RBC % 0.0 Platelet Estimate Adequate Hypochromasia 1+ Anisocytosis 1+ Ovalocytes 1+ Schistocytes None seen APTT 55.7 H Sodium 136 L Potassium 4.2 Chloride 104 Carbon Dioxide 28 Anion Gap 4 BUN 26 H Creatinine 0.97 Estim Creat Clear Calc 30 Estimated GFR 56 L Glucose 121 H Calcium 7.7 L Total Bilirubin 0.3 AST 29 ALT 17 Alkaline Phosphatase 99 Troponin I Total Protein 5.5 L Albumin 2.9 L Quality VTE Prophylaxis VTE prophylaxis: mechanical ordered
--- NOTE | 2025-02-27 11:45 | P.PNCA_ITS ---
Progress Note: A&P Assessment and Plan (1) Chest pain: Code(s): R07.9 - Chest pain, unspecified Status: Acute Plan Atypical chest pain severe persistent was no dynamic EKG changes and no significant troponin elevation Abnormal echocardiogram with wall motion abnormalities Hypertension controlled History of V-tach status post ICD History of stroke GERD Plan Left heart catheterization Start PPI Aspirin 81 mg daily Hold Apixaban 2.5 mg b.i.d. Losartan 100 mg daily Continue observation Pain control per primary team Subjective Date/time seen: 02/27/25 11:45 Interval history: Patient seen for recurrent episodes chest pain. Patient did have recurrent episodes of chest pain since yesterday. Telemetry paced atrial rhythm Review of Systems Review of Systems: All systems reviewed & are unremarkable except as noted in HPI and below Exam Const: General: comfortable and no acute distress Other: Able to lie flat HENMT: Face/Nose/Sinus: Normal nares present and no epistaxis Mouth: Yes moist mucous membranes Eyes: Sclera: sclerae normal Pupils: Equal, round and reactive pupils present Neck: Neck: supple and no JVD Carotids: no bruits Chest: Other: Chest wall tenderness and pain is reproducible Resp: Auscultation: clear to auscultation bilaterally and lung sounds not diminished Other: No chest wall tenderness Cardio: Rate: regular rate Rhythm: regular rhythm Heart sounds: no gallops, no murmurs and no rubs GI: GI Palp: Yes Soft to palpation and No Tenderness to palpation present (GI) Auscultation: normal bowel sounds Skin: General skin exam: normal color, rashes and/or lesions noted and no erythema Other: Warm Neuro: Cranial nerves: Yes Equal, round and reactive pupils present Speech: normal speech Other: No obvious focal deficit or facial asymmetry Extrem: General: no edema Other: Normal capillary refills Intact distal pulses. Objective Data Vital Signs Vital Signs: Vital Signs - 24 hr 02/26/25 11:50 02/26/25 12:00 02/26/25 12:00 Temperature 36.5 C Pulse Rate 75 63 76 Respiratory Rate 18 19 Blood Pressure 138/78 Pulse Oximetry 98 96 Oxygen Delivery Room Air 02/26/25 14:00 02/26/25 15:48 02/26/25 16:00 Temperature 36.8 C Pulse Rate 74 70 63 Respiratory Rate 20 19 Blood Pressure 123/50 L Pulse Oximetry 99 96 Oxygen Delivery Room Air 02/26/25 16:00 02/26/25 18:00 02/26/25 20:00 Temperature 36.8 C Pulse Rate 75 72 71 Respiratory Rate 22 H Blood Pressure 111/54 L Pulse Oximetry 95 Oxygen Delivery 02/26/25 20:00 02/26/25 20:18 02/26/25 20:23 Temperature Pulse Rate 70 98 98 Respiratory Rate 16 16 Blood Pressure Pulse Oximetry Oxygen Delivery 02/26/25 21:23 02/26/25 23:36 02/27/25 00:00 Temperature 36.7 C Pulse Rate 87 71 Respiratory Rate 20 Blood Pressure 129/52 L Pulse Oximetry 95 95 Oxygen Delivery Room Air 02/27/25 00:00 02/27/25 02:00 02/27/25 03:54 Temperature Pulse Rate 72 70 Respiratory Rate 18 Blood Pressure Pulse Oximetry 96 96 Oxygen Delivery Room Air Room Air 02/27/25 04:00 02/27/25 04:00 02/27/25 06:00 Temperature 36.4 C L Pulse Rate 70 68 70 Respiratory Rate 20 Blood Pressure 122/52 L Pulse Oximetry 98 Oxygen Delivery 02/27/25 07:59 02/27/25 08:00 02/27/25 08:00 Temperature 37.2 C Pulse Rate 70 70 Respiratory Rate 16 Blood Pressure 156/58 H Pulse Oximetry 99 Oxygen Delivery Room Air 02/27/25 10:00 Temperature Pulse Rate 70 Respiratory Rate Blood Pressure Pulse Oximetry Oxygen Delivery Intake/Output Intake/Output: Intake & Output 02/24/25 02/25/25 02/26/25 02/27/25 23:59 23:59 23:59 23:59 Intake Total 846.7 117.1 Output Total 400 0 Balance 446.7 117.1 Meds/Results Medications: Active Medications Generic Name Dose Route Start Last Admin Trade Name Freq PRN Reason Stop Dose Admin Hydrocodone Bitart/Acetaminophen 1 tab 02/26/25 11:09 02/26/25 17:18 Hydrocodone/Acetaminophen (*Crx) 5-325 Mg Tablet PO 1 tab Q6H PRN Administration Pain Rated 4-6 Albuterol/Ipratropium 3 ml 02/26/25 14:00 02/27/25 08:39 Ipratropium 0.5 Mg/Albuterol Sulfate 2.5 Mg Ampul.Neb 3 Ml INHALATION Not Given Q6HRT KENDY Aspirin 81 mg 02/27/25 09:00 02/27/25 09:41 Aspirin 81 Mg Enteric Tablet PO 81 mg DAILY KENDY Administration Gabapentin 100 mg 02/27/25 09:00 02/27/25 09:41 Gabapentin 100 Mg Capsule PO 100 mg DAILY KENDY Administration Heparin Sodium (Porcine) 3,500 units 02/25/25 23:45 02/26/25 07:05 Heparin Sodium 5,000 Units/Ml Vial IV PUSH 3,500 units PRN PRN Administration aPTT less than 55 seconds Heparin Sodium (Porcine) 1,500 units 02/25/25 23:45 02/27/25 06:49 Heparin Sodium 5,000 Units/Ml Vial IV PUSH 1,500 units PRN PRN Administration aPTT 55 - 70 seconds Hydroxyzine HCl 25 mg 02/27/25 10:24 02/27/25 11:03 Hydroxyzine Hcl 25 Mg Tablet PO 25 mg Q6H PRN Administration Itching Heparin Sodium/Dextrose 25,000 units in 250 mls @ 9 mls/hr 02/25/25 23:45 06:48 Heparin Sodium/D5w 100 Units/Ml IV CONT 900 units/hr .Q24H KENDY 9 mls/hr Protocol Titration 900 UNITS/HR Ketorolac Tromethamine 15 mg 02/26/25 19:00 02/27/25 09:39 Ketorolac 15 Mg/Ml Vial (*Bkc) IV PUSH Not Given Q6H KENDY Losartan Potassium 100 mg 02/26/25 13:50 02/27/25 09:41 Losartan Potassium 100 Mg Tablet PO 100 mg DAILY KENDY Administration Methylprednisolone Sodium Succinate 40 mg 02/26/25 18:00 02/27/25 05:30 Methylprednisolone Sod Succ 40 Mg Vial IV PUSH 40 mg Q6HR KENDY Administration Mirtazapine 15 mg 02/26/25 21:00 02/26/25 20:21 Mirtazapine 15 Mg Tablet PO 15 mg HS KENDY Administration Morphine Sulfate 0.5 mg 02/26/25 13:45 02/26/25 18:49 Morphine Sulfate (*Crx) 2 Mg/Ml Inj IV PUSH 0.5 mg Q4H PRN Administration Pain Rated 7-10 Naproxen 500 mg 02/26/25 21:00 02/26/25 20:21 Naproxen 500 Mg Tablet PO Not Given On Hold: 02/27/25 09:00 Q12HR KENDY Nitroglycerin 0.4 mg 02/25/25 23:49 02/26/25 09:11 Nitroglycerin Sl 0.4 Mg Tablet SUBLINGUAL 0.4 mg PRN PRN Administration Chest Pain Nitroglycerin 0.4 mg 02/26/25 13:44 Nitroglycerin Sl 0.4 Mg Tablet SUBLINGUAL Q5M PRN Chest Pain Nortriptyline HCl 10 mg 02/26/25 21:00 02/26/25 20:21 Nortriptyline Hcl 10 Mg Capsule PO 10 mg HS KENDY Administration Ondansetron HCl 4 mg 02/26/25 13:44 Ondansetron Hcl Odt 4 Mg Tablet BY MOUTH Q8H PRN Nausea And Vomiting Pantoprazole Sodium 40 mg 02/27/25 09:00 02/27/25 09:41 Pantoprazole 40 Mg Tablet PO 40 mg QAM KENDY Administration Perflutren Lipid Microsphere 0 ml 02/26/25 10:07 Perflutren Lipid Microspheres 1.5 Ml Vial Diluted To 10 Ml Total Volume IV PUSH 03/01/25 10:07 ONCE PRN adequate visualization Protocol Tizanidine HCl 4 mg 02/26/25 13:44 02/26/25 20:57 Tizanidine Hcl 4 Mg Tablet PO 4 mg QID PRN Administration Muscle Spasticity Trazodone HCl 100 mg 02/26/25 21:00 02/26/25 20:20 Trazodone Hcl 50 Mg Tablet PO 100 mg HS KENDY Administration Radiology Results: ITS Impressions Chest X-Ray 02/25/25 19:58 Impression: 1: Retrocardiac consolidation may represent atelectasis and/or pneumonia. 2: Small left pleural effusion. Labs Labs: Laboratory Results - last 24 hr 02/26/25 02/26/25 02/27/25 13:16 21:59 05:35 WBC 6.7 RBC 4.28 Hgb 9.7 L Hct 35.7 L MCV 83.4 MCH 22.7 L MCHC 27.2 L RDW 28.8 H Plt Count 289 MPV 9.0 Immature Gran % (Auto) 0.9 H Neut % (Auto) 71.0 Lymph % (Auto) 21.0 [place] % (Auto) 6.8 Eos % (Auto) 0.0 Baso % (Auto) 0.3 Lymph # (Auto) 1.41 [place] # (Auto) 0.5 Eos # (Auto) 0.0 Baso # (Auto) 0.0 Abs Immat Gran (auto) 0.06 H Absolute Neuts (auto) 4.8 Absolute Nucleated RBC 0.000 Band Neutrophils % Not Reportable Nucleated RBC % 0.0 Platelet Estimate Adequate Hypochromasia 1+ Anisocytosis 1+ Ovalocytes 1+ Schistocytes None seen APTT 69.4 H 89.9 H 55.7 H Sodium 136 L Potassium 4.2 Chloride 104 Carbon Dioxide 28 Anion Gap 4 BUN 26 H Creatinine 0.97 Estim Creat Clear Calc 30 Estimated GFR 56 L Glucose 121 H Calcium 7.7 L Total Bilirubin 0.3 AST 29 ALT 17 Alkaline Phosphatase 99 Total Protein 5.5 L Albumin 2.9 L
[2025-02-27] MEDS: HEPARIN SOD/D5W 100 UNITS/ML 25,000 UNITS/250 ML BAG 9 UNITS IV CONT (12:08)
[2025-02-27 13:49] LABS: Partial Thromboplastin Time > 200.0 Seconds (22.3-36.8)
--- NOTE | 2025-02-27 15:02 | WPDGICN ---
Assessment and Plan Assessment and plan (1) Acute non-ST elevation myocardial infarction (NSTEMI): Code(s): I21.4 - Non-ST elevation (NSTEMI) myocardial infarction Status: Acute Assessment and Plan: heparin gtt complete cardiology work up then based on findings will decide best timing for EGD, also may need colonoscopy because anemia (2) Chest pain: Code(s): R07.9 - Chest pain, unspecified Status: Acute Assessment and Plan: requesting more pain meds (3) GERD (gastroesophageal reflux disease): Code(s): K21.9 - Gastro-esophageal reflux disease without esophagitis Status: Acute Assessment and Plan: ppi egd when ok by medical assistant ob gyn (4) COPD (chronic obstructive pulmonary disease): Code(s): J44.9 - Chronic obstructive pulmonary disease, unspecified Status: Acute (5) Chronic iron deficiency anemia: Code(s): D50.9 - Iron deficiency anemia, unspecified Status: Acute (6) Early satiety: Code(s): R68.81 - Early satiety Status: Acute GI Consult Note Consult date/time: 02/27/25 15:02 Reason for consult: gerd, chest pain HPI: Teagan Sigala is a 74 year old female with significant cardiac history, including coronary artery disease (s/p stent placement and ICD) and transient atrial fibrillation, for which she is on Eliquis. She also has a history of COPD and chronic kidney disease. She was just recently evaluated by Dr Mack when she was in the hospital recently for intermittent chest pain, she left AMA (also h/o anemia and early satiety). History also mentions suspected malingering. This time here with more chest pain, intermittent, severe, retrosternal chest pain described as coming in waves. Troponin mildly elevated, started on heparin gtt and medical assistant ob gyn evaluation. She had scopes but years ago. Also noted chronic LEONIDES. Review of Systems Constitutional: Constitutional: Denies chills Eyes: Eyes: Reports blurry vision (wearing patch in Rt eye- this is recent) ENT: Reports Normal hearing present Cardiovascular: Cardiovascular: Reports chest pain Respiratory: Respiratory: Denies cough Gastrointestinal: Gastrointestinal: Denies melena Genitourinary: Genitourinary: Denies dysuria Musculoskeletal: Musculoskeletal: Denies stiffness Integumentary/Breasts: Skin/Breast: Denies rash Neurologic: Denies Abnormal speech present Psychiatric: Psychiatric: Reports anxiety PMFSH Past Medical History Medical History (Updated 02/27/25 @ 15:13 by Jonas Schmitz MD) Early satiety Chronic iron deficiency anemia Family History Family History Mother Myocardial infarct Cardiovascular disease Hypertension CHF (congestive heart failure) Father Hypertension Social History Social History Years smoked: 49 Smoking status: Current every day smoker Tobacco type: cigarettes Second hand tobacco smoke exposure: Yes Alcohol intake: never Substance use: never Substance use type: does not use Lack of Transportation: No Lack of Food: Never True Current Housing: I Have Housing Concerned About Future Housing: No Difficulty Paying Gas/Electric Bills: No Difficulty Paying for Meds: No Currently Unemployed: No Education: High School Diploma/GED Difficulty w/ Childcare or Family Care: No Spiritual care concerns: No Meds Home Medications and Allergies Home Medications ?Medication ?Instructions ?Recorded ?Confirmed ?Type albuterol sulfate 90 mcg/actuation 1 inh inhalation QID PRN shortness 02/26/25 02/26/25 History aerosol inhaler of breath or wheezing apixaban 2.5 mg tablet (Eliquis) 2.5 mg PO BID 02/26/25 02/26/25 History aspirin 81 mg tablet,delayed 81 mg PO DAILY 02/26/25 02/26/25 History release (Adult Aspirin Regimen) doxycycline hyclate 100 mg capsule 100 mg PO Q12H 02/26/25 02/26/25 History gabapentin 100 mg capsule 100 mg PO DAILY 02/26/25 02/26/25 History losartan 100 mg tablet 100 mg PO DAILY 02/26/25 02/26/25 History mirtazapine 15 mg tablet 15 mg PO HS 02/26/25 02/26/25 History naproxen 500 mg tablet 500 mg PO Q12H 02/26/25 02/26/25 History nitroglycerin 0.4 mg sublingual 0.4 mg sublingual Q5M PRN chest 02/26/25 02/26/25 History tablet pain nortriptyline 10 mg capsule 10 mg PO HS 02/26/25 02/26/25 History ondansetron 4 mg disintegrating 4 mg translingual Q8H PRN nausea 02/26/25 02/26/25 History tablet and vomiting oxycodone-acetaminophen 7.5 mg-325 1 tablet PO BID PRN pain (scale 02/26/25 02/26/25 History mg tablet score 7-10) pantoprazole 40 mg tablet,delayed 40 mg PO QAM 02/26/25 02/26/25 History release prednisone 5 mg tablet 5 mg PO DAILY 02/26/25 02/26/25 History sumatriptan succinate 100 mg 100 mg PO BID PRN migraine headache 02/26/25 02/26/25 History tablet (Imitrex) tizanidine 4 mg tablet 4 mg PO QID PRN muscle spasticity 02/26/25 02/26/25 History trazodone 100 mg tablet 100 mg PO HS 02/26/25 02/26/25 History Allergies Allergy/AdvReac Type Severity Reaction Status Date / Time amphetamine (From Adderall) Allergy Unknown Unknown Verified 02/26/25 06:24 dextroamphetamine (From Allergy Unknown Unknown Verified 02/26/25 06:24 Adderall) lorazepam Allergy Unknown Agitated Verified 02/26/25 06:24 Penicillins Allergy Unknown Swelling Verified 02/26/25 06:24 of Lip/Tongue/Throat Sulfa (Sulfonamide AdvReac Unknown Nausea Verified 02/26/25 06:24 Antibiotics) Vital Signs Vital Signs - 24 hr 02/26/25 15:48 02/26/25 16:00 02/26/25 16:00 Temperature 98.2 F Pulse Rate 70 63 75 Respiratory Rate 20 19 Blood Pressure 123/50 L Pulse Oximetry 99 96 Oxygen Delivery Room Air 02/26/25 18:00 02/26/25 20:00 02/26/25 20:00 Temperature 98.2 F Pulse Rate 72 71 70 Respiratory Rate 22 H Blood Pressure 111/54 L Pulse Oximetry 95 Oxygen Delivery 02/26/25 20:18 02/26/25 20:23 02/26/25 21:23 Temperature Pulse Rate 98 98 Respiratory Rate 16 16 Blood Pressure Pulse Oximetry 95 Oxygen Delivery Room Air 02/26/25 23:36 02/27/25 00:00 02/27/25 00:00 Temperature 98.0 F Pulse Rate 87 71 72 Respiratory Rate 20 18 Blood Pressure 129/52 L Pulse Oximetry 95 96 Oxygen Delivery Room Air 02/27/25 02:00 02/27/25 03:54 02/27/25 04:00 Temperature 97.5 F L Pulse Rate 70 70 Respiratory Rate 20 Blood Pressure 122/52 L Pulse Oximetry 96 98 Oxygen Delivery Room Air 02/27/25 04:00 02/27/25 06:00 02/27/25 07:59 Temperature 98.9 F Pulse Rate 68 70 70 Respiratory Rate 16 Blood Pressure 156/58 H Pulse Oximetry 99 Oxygen Delivery 02/27/25 08:00 02/27/25 08:00 02/27/25 10:00 Temperature Pulse Rate 70 70 Respiratory Rate Blood Pressure Pulse Oximetry Oxygen Delivery Room Air 02/27/25 14:33 02/27/25 14:43 Temperature Pulse Rate 70 70 Respiratory Rate 18 16 Blood Pressure Pulse Oximetry Oxygen Delivery Exam Const: General: comfortable and no acute distress HENMT: Face/Nose/Sinus: Normal nares present Eyes: Other: wearing patch Rt eye Neck: Neck: supple Resp: Auscultation: clear to auscultation bilaterally Cardio: Rate: regular rate Rhythm: regular rhythm GI: Inspection: non-distended GI Palp: Yes Soft to palpation and No Tenderness to palpation present (GI) Auscultation: normal bowel sounds Skin: General skin exam: no rashes or lesions noted Neuro: Speech: normal speech Motor exam (neuro): 5/5 motor strength present throughout Extrem: General: normal to inspection Psych: Affect: Anxious affect present Results Labs 02/27/25 05:35 02/27/25 05:35 Labs: Short CBC 02/27/25 Range/Units 05:35 WBC 6.7 (4.5-10.0) K/mm3 Hgb 9.7 L (12.0-15.0) g/dL Hct 35.7 L (37.0-47.0) % Plt Count 289 (150-375) k/mm3 BMP 02/27/25 05:35 Sodium 136 L Potassium 4.2 Chloride 104 Carbon Dioxide 28 BUN 26 H Creatinine 0.97 Glucose 121 H Calcium 7.7 L Liver Function 02/27/25 Range/Units 05:35 Total Bilirubin 0.3 (0.2-1.3) mg/dL AST 29 (14-36) U/L ALT 17 (6-35) U/L Alkaline Phosphatase 99 (38-126) U/L Albumin 2.9 L (3.5-5.1) g/dL
[2025-02-27 15:48] LABS: CRP 0.8 mg/dL (<1.0)
--- NOTE | 2025-02-27 16:27 | WPDPROCEDUR ---
Procedures Other Procedures Procedure 1: Other Procedure: Nasal endoscopy right-sided Verbal consent obtained. Scope passed right side. No obvious purulence however there is edema of the right middle meatus which could represent inflammation due to sinus infection. Posteriorly no purulence as well. Patient tolerated the procedure fairly well reported some discomfort.
--- NOTE | 2025-02-27 16:34 | WPDCN ---
Assessment and Plan Assessment and plan (1) Blurred vision: Code(s): H53.8 - Other visual disturbances Status: Acute Assessment and Plan: -Recommend urgent ophthalmology consultation -Would also recommend imaging in the form of ct sinus or ct orbit to exclude any sinonasal infectious etiology or large extrinsic etiology (2) Headache: Code(s): R51.9 - Headache, unspecified Status: Acute (3) Facial pain: Code(s): R51.9 - Headache, unspecified Status: Acute HPI Data of Consult Date/Time: 02/27/25 16:34 Requesting Physician: Amina Worthy DO Primary Care Provider: Gideon Loaiza Consult Narrative Reason for consult: Right-sided vision loss with severe right-sided head facial pain Narrative: Teagan Sigala is a 74 year old female with right-sided vision loss reports for 5 days. No imaging. With the patient's in patient for cardiac related issues. Review of Systems Review of Systems: All systems reviewed & are unremarkable except as noted in HPI and below PMFSH Past Medical History Medical History (Updated 02/27/25 @ 16:38 by Bruno Ariza MD) Early satiety Chronic iron deficiency anemia Family History Family History Mother Myocardial infarct Cardiovascular disease Hypertension CHF (congestive heart failure) Father Hypertension Social History Social History Years smoked: 49 Smoking status: Current every day smoker Tobacco type: cigarettes Second hand tobacco smoke exposure: Yes Alcohol intake: never Substance use: never Substance use type: does not use Lack of Transportation: No Lack of Food: Never True Current Housing: I Have Housing Concerned About Future Housing: No Difficulty Paying Gas/Electric Bills: No Difficulty Paying for Meds: No Currently Unemployed: No Education: High School Diploma/GED Difficulty w/ Childcare or Family Care: No Spiritual care concerns: No Meds Home Medications and Allergies Home Medications ?Medication ?Instructions ?Recorded ?Confirmed ?Type albuterol sulfate 90 mcg/actuation 1 inh inhalation QID PRN shortness 02/26/25 02/26/25 History aerosol inhaler of breath or wheezing apixaban 2.5 mg tablet (Eliquis) 2.5 mg PO BID 02/26/25 02/26/25 History aspirin 81 mg tablet,delayed 81 mg PO DAILY 02/26/25 02/26/25 History release (Adult Aspirin Regimen) doxycycline hyclate 100 mg capsule 100 mg PO Q12H 02/26/25 02/26/25 History gabapentin 100 mg capsule 100 mg PO DAILY 02/26/25 02/26/25 History losartan 100 mg tablet 100 mg PO DAILY 02/26/25 02/26/25 History mirtazapine 15 mg tablet 15 mg PO HS 02/26/25 02/26/25 History naproxen 500 mg tablet 500 mg PO Q12H 02/26/25 02/26/25 History nitroglycerin 0.4 mg sublingual 0.4 mg sublingual Q5M PRN chest 02/26/25 02/26/25 History tablet pain nortriptyline 10 mg capsule 10 mg PO HS 02/26/25 02/26/25 History ondansetron 4 mg disintegrating 4 mg translingual Q8H PRN nausea 02/26/25 02/26/25 History tablet and vomiting oxycodone-acetaminophen 7.5 mg-325 1 tablet PO BID PRN pain (scale 02/26/25 02/26/25 History mg tablet score 7-10) pantoprazole 40 mg tablet,delayed 40 mg PO QAM 02/26/25 02/26/25 History release prednisone 5 mg tablet 5 mg PO DAILY 02/26/25 02/26/25 History sumatriptan succinate 100 mg 100 mg PO BID PRN migraine headache 02/26/25 02/26/25 History tablet (Imitrex) tizanidine 4 mg tablet 4 mg PO QID PRN muscle spasticity 02/26/25 02/26/25 History trazodone 100 mg tablet 100 mg PO HS 02/26/25 02/26/25 History Allergies Allergy/AdvReac Type Severity Reaction Status Date / Time amphetamine (From Adderall) Allergy Unknown Unknown Verified 02/26/25 06:24 dextroamphetamine (From Allergy Unknown Unknown Verified 02/26/25 06:24 Adderall) lorazepam Allergy Unknown Agitated Verified 02/26/25 06:24 Penicillins Allergy Unknown Swelling Verified 02/26/25 06:24 of Lip/Tongue/Throat Sulfa (Sulfonamide AdvReac Unknown Nausea Verified 02/26/25 06:24 Antibiotics) Vital Signs Vital Signs - 24 hr 02/26/25 18:00 02/26/25 20:00 02/26/25 20:00 Temperature 36.8 C Pulse Rate 72 71 70 Respiratory Rate 22 H Blood Pressure 111/54 L Pulse Oximetry 95 Oxygen Delivery 02/26/25 20:18 02/26/25 20:23 02/26/25 21:23 Temperature Pulse Rate 98 98 Respiratory Rate 16 16 Blood Pressure Pulse Oximetry 95 Oxygen Delivery Room Air 02/26/25 23:36 02/27/25 00:00 02/27/25 00:00 Temperature 36.7 C Pulse Rate 87 71 72 Respiratory Rate 20 18 Blood Pressure 129/52 L Pulse Oximetry 95 96 Oxygen Delivery Room Air 02/27/25 02:00 02/27/25 03:54 02/27/25 04:00 Temperature 36.4 C L Pulse Rate 70 70 Respiratory Rate 20 Blood Pressure 122/52 L Pulse Oximetry 96 98 Oxygen Delivery Room Air 02/27/25 04:00 02/27/25 06:00 02/27/25 07:59 Temperature 37.2 C Pulse Rate 68 70 70 Respiratory Rate 16 Blood Pressure 156/58 H Pulse Oximetry 99 Oxygen Delivery 02/27/25 08:00 02/27/25 08:00 02/27/25 10:00 Temperature Pulse Rate 70 70 Respiratory Rate Blood Pressure Pulse Oximetry Oxygen Delivery Room Air 02/27/25 14:33 02/27/25 14:43 02/27/25 15:56 Temperature 37.1 C Pulse Rate 70 70 70 Respiratory Rate 18 16 18 Blood Pressure 107/39 L Pulse Oximetry 99 Oxygen Delivery Exam Narrative: Normal exam see procedure for in-depth sinonasal exam. Procedure showed some edema of the right middle meatus but no obvious purulence and or infection. Results Labs 02/27/25 05:35 02/27/25 05:35 Labs: Short CBC 02/27/25 Range/Units 05:35 WBC 6.7 (4.5-10.0) K/mm3 Hgb 9.7 L (12.0-15.0) g/dL Hct 35.7 L (37.0-47.0) % Plt Count 289 (150-375) k/mm3 BMP 02/27/25 05:35 Sodium 136 L Potassium 4.2 Chloride 104 Carbon Dioxide 28 BUN 26 H Creatinine 0.97 Glucose 121 H Calcium 7.7 L Liver Function 02/27/25 Range/Units 05:35 Total Bilirubin 0.3 (0.2-1.3) mg/dL AST 29 (14-36) U/L ALT 17 (6-35) U/L Alkaline Phosphatase 99 (38-126) U/L Albumin 2.9 L (3.5-5.1) g/dL
[2025-02-27] MEDS: MIRTAZAPINE 15 MG TABLET PO (20:34)
[2025-02-27] MEDS: NORTRIPTYLINE HCL 10 MG CAPSULE PO (20:34)
[2025-02-27] MEDS: TIZANIDINE HCL 4 MG TABLET PO (20:34)
[2025-02-27 21:16] LABS: Partial Thromboplastin Time 58.2 Seconds (22.3-36.8)
--- NOTE | 2025-02-27 22:12 | PCRCNOTE ---
Window of time for administration has passed. See next scheduled administration.
[2025-02-28] VITALS (28 sets, daily range): BP systolic 117–170; BP diastolic 41–80; PULSE 65–99; RESP 14–20; TEMP 36.4–36.9; O2SAT 94–99; BMI 16.8
[2025-02-28] MEDS: KETOROLAC 15 MG/ML VIAL (*BKC) IV PUSH ×3 (00:58→12:31)
[2025-02-28] MEDS: IPRATROPIUM 0.5 MG/ALBUTEROL SULFATE 2.5 MG AMPUL.NEB 3 ML INHALATION ×4 (02:50→21:21)
[2025-02-28 04:16] LABS: Hematocrit 29.2 % (37.0-47.0); Hemoglobin 8.3 g/dL (12.0-15.0); Immature Granulocyte Percent A 0.7 % (0-0.5); Lymphocytes Absolute Auto 0.71 K/mm3 (0.9-3.2); Mean Corpuscular HGB Conc 28.4 g/dl (32-36); Mean Corpuscular Hemoglobin 22.6 pg (26-34); Mean Corpuscular Volume 79.6 fl (80-100); Nucleated Red Blood Cells Absolute Auto 0.000 K/mm3 (0.0-0.012); Nucleated Red Blood Cells Perc 0.0 % (0.0-0.2); Platelet Count Result 275 k/mm3 (150-375); Red Blood Count 3.67 M/mm3 (4.2-5.4); White Blood Count 15.2 K/mm3 (4.5-10.0)
[2025-02-28 04:34] LABS: Alanine Aminotransferase 16 U/L (6-35); Albumin Level 2.8 g/dL (3.5-5.1); Alkaline Phosphatase 116 U/L (38-126); Anion Gap 7 mmol/L (4-12); Aspartate Amino Transferase 19 U/L (14-36); Bilirubin,Total 0.2 mg/dL (0.2-1.3); Blood Urea Nitrogen 35 mg/dL (7-17); Calcium 7.8 mg/dL (8.4-10.2); Carbon Dioxide 25 mmol/L (22-30); Chloride 103 mmol/L (98-107); Estimated CRCL calculation 19 ml/min; Estimated Glomerular Filt Rate 30; Glucose 120 mg/dL (65-110); Partial Thromboplastin Time 136.0 Seconds (22.3-36.8); Potassium 3.9 mmol/L (3.4-5.0); Sodium 135 mmol/L (137-145); Total Protein 5.4 g/dL (6.3-8.2)
[2025-02-28 05:00] LABS: Hypochromasia 2+
[2025-02-28 05:01] LABS: Anisocytosis 2+; Schistocytes None Seen
--- NOTE | 2025-02-28 06:54 | ECG_ITS ---
Test Date: 2025-02-28 07:01:27 Measurements Intervals [place] Rate: 70 P: 16 TN: 145 QRS: 40 QRSD: 102 T: 37 QT: 397 QTc: 428 Interpretive Statements ELECTRONIC ATRIAL PACEMAKER NONSPECIFIC T-WAVE ABNORMALITY ABNORMAL RHYTHM ECG Compared to ECG 02/26/2025 10:26:24 T-wave abnormality now present Left ventricular hypertrophy no longer present ST (T wave) deviation no longer present Electronically Signed On 02-28-2025 07:29:53 CDT by Lila Argueta M.D.
--- NOTE | 2025-02-28 07:11 | P.PNIM_ITS ---
Progress Note: A&P Assessment and Plan (1) Acute non-ST elevation myocardial infarction (NSTEMI): Code(s): I21.4 - Non-ST elevation (NSTEMI) myocardial infarction Status: Acute Assessment and Plan: * Monitor vital signs, I&Os, chest pain, shortness of breath and patient is a fall risk * Monitor PTT, serial troponins, Serum electrolytes, and cbc * Keep serum potassium >4 and keep magnesium >2 * Heparin drip per ACS protocol * Monitor for bloody bowel movements, chest pain, SOB or dizziness/lightheadedness * DVT Px: Heparin Drip * Cardiology consult * Start PPI, continue aspirin, apixaban, and losartan * Transthoracic echocardiogram - Left ventricular systolic function is normal, estimated at 55-60. - There is mildly increased left ventricular wall thickness. - The left ventricular diastolic function is grade I diastolic dysfunction. - The mid inferior wall, basal inferolateral wall, and mid inferolateral wall are hypokinetic. - Linear artifact in right ventricle suggestive of catheter(s), pacemaker lead(s), or ICD lead(s). - There is mild tricuspid valve regurgitation. - No pulmonary hypertension, estimated pulmonary arterial systolic pressure is 35 mmHg. - Pleural effusion. * Left heart catheterization per cardiology (2) COPD (chronic obstructive pulmonary disease): Code(s): J44.9 - Chronic obstructive pulmonary disease, unspecified Status: Acute Assessment and Plan: * Monitor vital signs, I&Os, neuro status and patient is a fall risk * Monitor serum electrolytes, cultures and CBC * Monitor Oxygen saturation, Oxygen via NC; wean oxygen as tolerated, keep SpO2 greater than 88% * Send sputum cultures if possible * Duonebz q6H * Solu-Medrol 40 mg IVq6H (3) GERD (gastroesophageal reflux disease): Code(s): K21.9 - Gastro-esophageal reflux disease without esophagitis Status: Acute Assessment and Plan: * During previous hospitalization, she was being worked up for non-cardiac related chest pain through GI * Per GI on 02/15: Having ruled out cardiac etiologies, the most likely explanation for this episodes is esophageal spasms. This could be related to GERD old, with or without esophagitis, or a primary esophageal motility disorder such as achalasia. * Was planning for EGD/Colonoscopy * Will consult GI again - appreciate further recommendation for possible non-c ardiac cause of chest pain * Continue pantoprazole, may add on GI cocktail (4) Abnormal chest xray: Code(s): R93.89 - Abnormal findings on diagnostic imaging of other specified body structures Status: Acute Assessment and Plan: * CXR: Retrocardiac consolidation may represent atelectasis and/or pneumonia * started on CAP tx: PO levaquin 750mg 1 time dose, will start 500mg po q48 48hrs after 750mg dose * Viral PCR: Flu/COVID/RSV pending * Consider ordering legionella, mycoplasma and pneumococcal * no supplemental O2 requirement * supportive treatment * trend labs * Monitor vital signs, I&Os, neuro status and patient is a fall risk * Follow WBC, serum electrolytes, temperature curves and cultures * Send sputum cultures * Gentle IV fluid resuscitation (5) MARIELA (acute kidney injury): Code(s): N17.9 - Acute kidney failure, unspecified Status: Acute Assessment and Plan: * Creatinine: 1.67 (baseline appears around 1), GFR: 30, BUN: 35 * IV Fluids: NS @ 100mls/hr * Trend renal function * Trend electrolytes, correct as needed (6) Hypertension: Code(s): I10 - Essential (primary) hypertension Status: Acute Assessment and Plan: * Patient's blood pressure was reviewed on 02/26 * Blood pressure remains well controlled * Will continue current medications (7) Vision loss, right eye: Code(s): H54.61 - Unqualified visual loss, right eye, normal vision left eye Status: Acute Assessment and Plan: * Endorsing R eye unilateral vision loss this AM * Pupils round equal and reactive * Eye does not appear to be red, swollen or tender on exam * Denies any pain with movement of the eyes * Carotid duplex US: No hemodynamically significant ICA stenosis (i.e., if any stenosis, less than 50%). Normal bilateral antegrade vertebral artery flow. * ESR/CRP ordered * ENT consult * Recommend CT Orbit to r/o sinonasal infectious etiology (8) CAD (coronary artery disease): Code(s): I25.10 - Atherosclerotic heart disease of [place] coronary artery without angina pectoris Status: Acute Assessment and Plan: * Continue at-home medications (9) Smoking history: Code(s): Z87.891 - Personal history of nicotine dependence Status: Acute Assessment and Plan: * Educated on smoking cessation * Will provide nicotine patch if desired (10) Malingering: Code(s): Z76.5 - Malingerer [conscious simulation] Status: Acute Assessment and Plan: * Psych consult Subjective Date/time seen: 02/28/25 07:11 Interval history: 74 year old female with a past medical history of CAD with prior cardiac stent, ICD placement, HTN, CVA, COPD, GERD, CKD and malingering who presented to the hospital for chest pain for the past week. She was recently seen in the hospital but left AMA on 02/15/2025 for similar complaints of chest pain. 02/28/2025 Patient sitting in bed at time of exam. US carotid negative, ENT consulted regarding blurred vision - recommend CT orbit. Plan for left heart cath today. Psych consulted regarding agitation/malingering. WBC up from 6.7 -> 15.2. CXR may suggest atelectasis/pneumonia - will start empiric antibiotic coverage with Levaquin. Not septic. Review of Systems Review of Systems: All systems reviewed & are unremarkable except as noted in HPI and below Exam Narrative: Gen - chronically ill appearing female in no acute respiratory distress who is nontoxic-appearing lying semi recumbent in bed HEENT - normocephalic. Atraumatic. Pupils equal round and reactive. Extraocular motions intact. Sclera clear and anicteric. Nares patent. Oropharynx was clear. No oral lesions. Moist mucous membranes. Tongue was midline. Palate lorene symmetrically. No facial asymmetry. Neck - neck was supple. No dominant adenopathy, thyromegaly or masses. Chest - Chest wall tenderness to palpation throughout. Lungs are clear to auscultation bilaterally. No wheezes or crackles. CV - heart was regular rate and rhythm. S1-S2. No murmurs gallops or rubs. Abd - abdomen was soft. Nontender. Nondistended. Positive bowel sounds. No organomegaly or masses. Ext - no clubbing, cyanosis or edema. 2+ DP pulses bilaterally. Neuro - patient is alert and oriented x4. Strength is 5/5 in both upper and lower extremities. Cranial nerves 2-12 are intact. Speech is clear. Psych - normal mood and affect. Patient is pleasant and cooperative. Skin - warm and dry. No rashes noted. Objective Data Vital Signs Vital Signs: Vital Signs - 24 hr 02/27/25 07:59 02/27/25 08:00 02/27/25 08:00 Temperature 98.9 F Pulse Rate 70 70 Respiratory Rate 16 Blood Pressure 156/58 H Pulse Oximetry 99 Oxygen Delivery Room Air 02/27/25 10:00 02/27/25 14:33 02/27/25 14:43 Temperature Pulse Rate 70 70 70 Respiratory Rate 18 16 Blood Pressure Pulse Oximetry Oxygen Delivery 02/27/25 15:56 02/27/25 16:00 02/27/25 16:00 Temperature 98.7 F Pulse Rate 70 70 Respiratory Rate 18 Blood Pressure 107/39 L Pulse Oximetry 99 Oxygen Delivery Room Air 02/27/25 20:00 02/27/25 20:00 02/27/25 22:00 Temperature Pulse Rate 71 70 Respiratory Rate Blood Pressure Pulse Oximetry Oxygen Delivery Room Air 02/28/25 00:00 02/28/25 00:00 02/28/25 00:00 Temperature 97.5 F L Pulse Rate 70 71 Respiratory Rate 16 Blood Pressure 117/42 L Pulse Oximetry 96 Oxygen Delivery Room Air 02/28/25 02:00 02/28/25 02:44 02/28/25 03:55 Temperature 97.8 F Pulse Rate 70 70 70 Respiratory Rate 16 17 Blood Pressure 136/58 L Pulse Oximetry 94 Oxygen Delivery 02/28/25 04:00 02/28/25 04:00 02/28/25 06:00 Temperature Pulse Rate 71 70 Respiratory Rate Blood Pressure Pulse Oximetry Oxygen Delivery Room Air Intake/Output Intake/Output: Intake & Output 02/25/25 02/26/25 02/27/25 02/28/25 23:59 23:59 23:59 23:59 Intake Total 846.7 944.2 362.4 Output Total 400 0 50 Balance 446.7 944.2 312.4 Meds/Results Medications: Active Medications Generic Name Dose Route Start Last Admin Trade Name Freq PRN Reason Stop Dose Admin Hydrocodone Bitart/Acetaminophen 1 tab 02/26/25 11:09 02/26/25 17:18 Hydrocodone/Acetaminophen (*Crx) 5-325 Mg Tablet PO 1 tab Q6H PRN Administration Pain Rated 4-6 Albuterol/Ipratropium 3 ml 02/26/25 14:00 02/28/25 02:50 Ipratropium 0.5 Mg/Albuterol Sulfate 2.5 Mg Ampul.Neb 3 Ml INHALATION 3 ml Q6HRT KENDY Administration Aspirin 81 mg 02/27/25 09:00 02/27/25 09:41 Aspirin 81 Mg Enteric Tablet PO 81 mg DAILY KENDY Administration Gabapentin 100 mg 02/27/25 09:00 02/27/25 09:41 Gabapentin 100 Mg Capsule PO 100 mg DAILY KENDY Administration Heparin Sodium (Porcine) 3,500 units 02/25/25 23:45 02/26/25 07:05 Heparin Sodium 5,000 Units/Ml Vial IV PUSH 3,500 units PRN PRN Administration aPTT less than 55 seconds Heparin Sodium (Porcine) 1,500 units 02/25/25 23:45 02/27/25 21:47 Heparin Sodium 5,000 Units/Ml Vial IV PUSH 1,500 units PRN PRN Administration aPTT 55 - 70 seconds Hydroxyzine HCl 25 mg 02/27/25 10:24 02/27/25 23:28 Hydroxyzine Hcl 25 Mg Tablet PO 25 mg Q6H PRN Administration Itching Heparin Sodium/Dextrose 25,000 units in 250 mls @ 8 mls/hr 02/25/25 23:45 02/28/25 05:44 Heparin Sodium/D5w 100 Units/Ml IV CONT 800 units/hr .Q24H KENDY 8 mls/hr Protocol Titration 800 UNITS/HR Ketorolac Tromethamine 15 mg 02/26/25 19:00 02/28/25 06:28 Ketorolac 15 Mg/Ml Vial (*Bkc) IV PUSH 15 mg Q6H KENDY Administration Losartan Potassium 100 mg 02/26/25 13:50 02/27/25 09:41 Losartan Potassium 100 Mg Tablet PO 100 mg DAILY KENDY Administration Methylprednisolone Sodium Succinate 40 mg 02/26/25 18:00 02/28/25 06:29 Methylprednisolone Sod Succ 40 Mg Vial IV PUSH 40 mg Q6HR KENDY Administration Mirtazapine 15 mg 02/26/25 21:00 02/27/25 20:34 Mirtazapine 15 Mg Tablet PO 15 mg HS KENDY Administration Morphine Sulfate 0.5 mg 02/26/25 13:45 02/26/25 18:49 Morphine Sulfate (*Crx) 2 Mg/Ml Inj IV PUSH 0.5 mg Q4H PRN Administration Pain Rated 7-10 Naproxen 500 mg 02/26/25 21:00 02/26/25 20:21 Naproxen 500 Mg Tablet PO Not Given On Hold: 02/27/25 09:00 Q12HR KENDY Nitroglycerin 0.4 mg 02/25/25 23:49 02/26/25 09:11 Nitroglycerin Sl 0.4 Mg Tablet SUBLINGUAL 0.4 mg PRN PRN Administration Chest Pain Nitroglycerin 0.4 mg 02/26/25 13:44 Nitroglycerin Sl 0.4 Mg Tablet SUBLINGUAL Q5M PRN Chest Pain Nortriptyline HCl 10 mg 02/26/25 21:00 02/27/25 20:34 Nortriptyline Hcl 10 Mg Capsule PO 10 mg HS KENDY Administration Ondansetron HCl 4 mg 02/26/25 13:44 Ondansetron Hcl Odt 4 Mg Tablet BY MOUTH Q8H PRN Nausea And Vomiting Pantoprazole Sodium 40 mg 02/27/25 09:00 02/27/25 09:41 Pantoprazole 40 Mg Tablet PO 40 mg QAM KENDY Administration Perflutren Lipid Microsphere 0 ml 02/26/25 10:07 Perflutren Lipid Microspheres 1.5 Ml Vial Diluted To 10 Ml Total Volume IV PUSH 03/01/25 10:07 ONCE PRN adequate visualization Protocol Tizanidine HCl 4 mg 02/26/25 13:44 02/27/25 20:34 Tizanidine Hcl 4 Mg Tablet PO 4 mg QID PRN Administration Muscle Spasticity Trazodone HCl 100 mg 02/26/25 21:00 02/27/25 20:33 Trazodone Hcl 50 Mg Tablet PO 100 mg HS KENDY Administration Radiology Results: ITS Impressions Chest X-Ray 02/25/25 19:58 Impression: 1: Retrocardiac consolidation may represent atelectasis and/or pneumonia. 2: Small left pleural effusion. Labs Labs: Laboratory Results - last 24 hr 02/27/25 02/27/25 02/27/25 05:35 12:35 16:30 WBC RBC Hgb Hct MCV MCH MCHC RDW Plt Count MPV Immature Gran % (Auto) Neut % (Auto) Lymph % (Auto) [place] % (Auto) Eos % (Auto) Baso % (Auto) Lymph # (Auto) [place] # (Auto) Eos # (Auto) Baso # (Auto) Abs Immat Gran (auto) Absolute Neuts (auto) Absolute Nucleated RBC Band Neutrophils % Nucleated RBC % Platelet Estimate Hypochromasia Anisocytosis Schistocytes ESR 17 APTT > 200.0 H* Sodium Potassium Chloride Carbon Dioxide Anion Gap BUN Creatinine Estim Creat Clear Calc Estimated GFR Glucose Calcium Total Bilirubin AST ALT Alkaline Phosphatase C-Reactive Protein 0.8 Total Protein Albumin 02/27/25 02/28/25 20:52 04:08 WBC 15.2 H RBC 3.67 L Hgb 8.3 L Hct 29.2 L MCV 79.6 L MCH 22.6 L MCHC 28.4 L RDW 29.0 H Plt Count 275 MPV 8.9 Immature Gran % (Auto) 0.7 H Neut % (Auto) 90.0 H Lymph % (Auto) 4.7 L [place] % (Auto) 4.5 Eos % (Auto) 0.0 Baso % (Auto) 0.1 L Lymph # (Auto) 0.71 L [place] # (Auto) 0.7 H Eos # (Auto) 0.0 Baso # (Auto) 0.0 Abs Immat Gran (auto) 0.11 H Absolute Neuts (auto) 13.7 H Absolute Nucleated RBC 0.000 Band Neutrophils % Not Reportable Nucleated RBC % 0.0 Platelet Estimate Adequate Hypochromasia 2+ Anisocytosis 2+ Schistocytes None seen ESR APTT 58.2 H 136.0 H Sodium 135 L Potassium 3.9 Chloride 103 Carbon Dioxide 25 Anion Gap 7 BUN 35 H Creatinine 1.67 H Estim Creat Clear Calc 19 Estimated GFR 30 L Glucose 120 H Calcium 7.8 L Total Bilirubin 0.2 AST 19 ALT 16 Alkaline Phosphatase 116 C-Reactive Protein Total Protein 5.4 L Albumin 2.8 L Quality VTE Prophylaxis VTE prophylaxis: mechanical ordered
[2025-02-28] MEDS: ASPIRIN 81 MG ENTERIC TABLET PO (08:32)
[2025-02-28] MEDS: GABAPENTIN 100 MG CAPSULE PO (08:32)
[2025-02-28] MEDS: PANTOPRAZOLE 40 MG TABLET PO (08:32)
[2025-02-28] MEDS: LOSARTAN POTASSIUM 100 MG TABLET PO (08:32)
[2025-02-28] MEDS: SODIUM CHLORIDE 0.9% IV 1,000 ML 100 ML IV CONT (10:17)
[2025-02-28] MEDS: HYDROcodone/acetaminophen (*CRX) 5-325 MG TABLET 1 TAB PO ×2 (10:59→18:05)
[2025-02-28 12:00] LABS: Partial Thromboplastin Time 49.6 Seconds (22.3-36.8)
[2025-02-28 12:47] LABS: Influenza A QL RT-PCR Negative (Negative); Influenza B QL RT-PCR Negative (Negative); RSV RNA, RT-PCR Negative (Negative); SARS-CoV-2 RNA PCR Negative (Negative)
[2025-02-28 13:59] LABS: MRSA (PCR) DETECTED (NOT DETECTE)
[2025-02-28] MEDS: TIZANIDINE HCL 4 MG TABLET PO ×2 (14:21→20:49)
[2025-02-28] MEDS: ONDANSETRON HCL ODT 4 MG TABLET BY MOUTH ×2 (14:21→23:17)
--- NOTE | 2025-02-28 15:25 | WPDGIPROGNO ---
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 (2) CAD (coronary artery disease): Code(s): I25.10 - Atherosclerotic heart disease of [place] coronary artery without angina pectoris Status: Acute (3) GERD (gastroesophageal reflux disease): Qualifiers: Esophagitis presence: esophagitis presence not specified Qualified Code(s): K21.9 - Gastro-esophageal reflux disease without esophagitis Code(s): K21.9 - Gastro-esophageal reflux disease without esophagitis Status: Acute Assessment and Plan: ppi (4) Chest pain: Code(s): R07.9 - Chest pain, unspecified Status: Acute (5) Chronic iron deficiency anemia: Code(s): D50.9 - Iron deficiency anemia, unspecified Status: Acute Assessment and Plan: at some point we are also planning to do colonoscopy because of chronic anemia Subjective Date/time seen: 02/28/25 15:25 Interval history: no changes, c/o as usual of pain (headache, chest, back) Review of Systems Review of Systems: All systems reviewed & are unremarkable except as noted in HPI and below Exam Const: General: comfortable and no acute distress HENMT: Face/Nose/Sinus: Normal nares present Eyes: Other: wearing patch Rt eye Neck: Neck: supple Resp: Auscultation: clear to auscultation bilaterally Cardio: Rate: regular rate Rhythm: regular rhythm GI: Inspection: non-distended GI Palp: Yes Soft to palpation and No Tenderness to palpation present (GI) Auscultation: normal bowel sounds Skin: General skin exam: no rashes or lesions noted Neuro: Speech: normal speech Motor exam (neuro): 5/5 motor strength present throughout Extrem: General: normal to inspection Psych: Affect: Anxious affect present Objective Data Vital Signs Vital Signs: Vital Signs - 24 hr 02/27/25 15:56 02/27/25 16:00 02/27/25 16:00 Temperature 98.7 F Pulse Rate 70 70 Respiratory Rate 18 Blood Pressure 107/39 L Pulse Oximetry 99 Oxygen Delivery Room Air 02/27/25 20:00 02/27/25 20:00 02/27/25 22:00 Temperature Pulse Rate 71 70 Respiratory Rate Blood Pressure Pulse Oximetry Oxygen Delivery Room Air 02/28/25 00:00 02/28/25 00:00 02/28/25 00:00 Temperature 97.5 F L Pulse Rate 70 71 Respiratory Rate 16 Blood Pressure 117/42 L Pulse Oximetry 96 Oxygen Delivery Room Air 02/28/25 02:00 02/28/25 02:44 02/28/25 03:55 Temperature 97.8 F Pulse Rate 70 70 70 Respiratory Rate 16 17 Blood Pressure 136/58 L Pulse Oximetry 94 Oxygen Delivery 02/28/25 04:00 02/28/25 04:00 02/28/25 06:00 Temperature Pulse Rate 71 70 Respiratory Rate Blood Pressure Pulse Oximetry Oxygen Delivery Room Air 02/28/25 08:00 02/28/25 08:00 02/28/25 08:00 Temperature 98.4 F Pulse Rate 73 70 Respiratory Rate 16 Blood Pressure 145/69 H Pulse Oximetry 98 Oxygen Delivery Room Air 02/28/25 08:54 02/28/25 09:02 02/28/25 09:03 Temperature Pulse Rate 70 70 Respiratory Rate 16 16 Blood Pressure Pulse Oximetry 98 Oxygen Delivery Room Air 02/28/25 10:00 02/28/25 11:27 02/28/25 12:00 Temperature 98.3 F Pulse Rate 70 74 Respiratory Rate 16 Blood Pressure 138/57 L Pulse Oximetry 99 Oxygen Delivery Room Air 02/28/25 12:00 02/28/25 13:35 02/28/25 14:35 Temperature Pulse Rate 70 70 71 Respiratory Rate 16 Blood Pressure Pulse Oximetry Oxygen Delivery 02/28/25 14:42 Temperature Pulse Rate 71 Respiratory Rate 18 Blood Pressure Pulse Oximetry Oxygen Delivery Intake/Output Intake/Output: Intake & Output 02/25/25 02/26/25 02/27/25 02/28/25 23:59 23:59 23:59 23:59 Intake Total 846.7 944.2 416.5 Output Total 400 0 50 Balance 446.7 944.2 366.5 Meds/Results Medications: Active Medications Generic Name Dose Route Start Last Admin Trade Name Freq PRN Reason Stop Dose Admin Hydrocodone Bitart/Acetaminophen 1 tab 02/26/25 11:09 02/28/25 10:59 Hydrocodone/Acetaminophen (*Crx) 5-325 Mg Tablet PO 1 tab Q6H PRN Administration Pain Rated 4-6 Albuterol/Ipratropium 3 ml 02/26/25 14:00 02/28/25 14:35 Ipratropium 0.5 Mg/Albuterol Sulfate 2.5 Mg Ampul.Neb 3 Ml INHALATION 3 ml Q6HRT KENDY Administration Aspirin 81 mg 02/27/25 09:00 02/28/25 08:32 Aspirin 81 Mg Enteric Tablet PO 81 mg DAILY KENDY Administration Doxycycline Hyclate 100 mg 02/28/25 18:00 Doxycycline Hyclate 100 Mg Tablet PO 03/07/25 09:01 Q12HR KENDY Gabapentin 100 mg 02/27/25 09:00 02/28/25 08:32 Gabapentin 100 Mg Capsule PO 100 mg DAILY KENDY Administration Heparin Sodium (Porcine) 3,500 units 02/25/25 23:45 02/28/25 12:31 Heparin Sodium 5,000 Units/Ml Vial IV PUSH 3,500 units PRN PRN Administration aPTT less than 55 seconds Heparin Sodium (Porcine) 1,500 units 02/25/25 23:45 02/27/25 21:47 Heparin Sodium 5,000 Units/Ml Vial IV PUSH 1,500 units PRN PRN Administration aPTT 55 - 70 seconds Hydroxyzine HCl 25 mg 02/27/25 10:24 02/27/25 23:28 Hydroxyzine Hcl 25 Mg Tablet PO 25 mg Q6H PRN Administration Itching Heparin Sodium/Dextrose 25,000 units in 250 mls @ 10 mls/hr 02/25/25 23:45 02/28/25 12:30 Heparin Sodium/D5w 100 Units/Ml IV CONT 1,000 units/hr .Q24H KENDY 10 mls/hr Protocol Titration 1,000 UNITS/HR Sodium Chloride 1,000 mls @ 100 mls/hr 02/28/25 07:17 02/28/25 10:17 Normal Saline Iv IV CONT 02/28/25 17:16 100 mls/hr .Q10H ONE Administration Ketorolac Tromethamine 15 mg 02/26/25 19:00 02/28/25 12:31 Ketorolac 15 Mg/Ml Vial (*Bkc) IV PUSH 15 mg Q6H KENDY Administration Levofloxacin 500 mg 03/02/25 09:00 Levofloxacin 500 Mg Tablet PO 03/04/25 09:01 Q48HR KENDY Losartan Potassium 100 mg 02/26/25 13:50 02/28/25 08:32 Losartan Potassium 100 Mg Tablet PO 100 mg DAILY KENDY Administration Methylprednisolone Sodium Succinate 40 mg 02/26/25 18:00 02/28/25 11:58 Methylprednisolone Sod Succ 40 Mg Vial IV PUSH 40 mg Q6HR KENDY Administration Mirtazapine 15 mg 02/26/25 21:00 02/27/25 20:34 Mirtazapine 15 Mg Tablet PO 15 mg HS KENDY Administration Morphine Sulfate 0.5 mg 02/26/25 13:45 02/26/25 18:49 Morphine Sulfate (*Crx) 2 Mg/Ml Inj IV PUSH 0.5 mg Q4H PRN Administration Pain Rated 7-10 Naproxen 500 mg 02/26/25 21:00 02/26/25 20:21 Naproxen 500 Mg Tablet PO Not Given On Hold: 02/27/25 09:00 Q12HR KENDY Nitroglycerin 0.4 mg 02/25/25 23:49 02/26/25 09:11 Nitroglycerin Sl 0.4 Mg Tablet SUBLINGUAL 0.4 mg PRN PRN Administration Chest Pain Nitroglycerin 0.4 mg 02/26/25 13:44 Nitroglycerin Sl 0.4 Mg Tablet SUBLINGUAL Q5M PRN Chest Pain Nortriptyline HCl 10 mg 02/26/25 21:00 02/27/25 20:34 Nortriptyline Hcl 10 Mg Capsule PO 10 mg HS KENDY Administration Ondansetron HCl 4 mg 02/26/25 13:44 02/28/25 14:21 Ondansetron Hcl Odt 4 Mg Tablet BY MOUTH 4 mg Q8H PRN Administration Nausea And Vomiting Pantoprazole Sodium 40 mg 02/27/25 09:00 02/28/25 08:32 Pantoprazole 40 Mg Tablet PO 40 mg QAM KENDY Administration Perflutren Lipid Microsphere 0 ml 02/26/25 10:07 Perflutren Lipid Microspheres 1.5 Ml Vial Diluted To 10 Ml Total Volume IV PUSH 03/01/25 10:07 ONCE PRN adequate visualization Protocol Tizanidine HCl 4 mg 02/26/25 13:44 02/28/25 14:21 Tizanidine Hcl 4 Mg Tablet PO 4 mg QID PRN Administration Muscle Spasticity Trazodone HCl 100 mg 02/26/25 21:00 02/27/25 20:33 Trazodone Hcl 50 Mg Tablet PO 100 mg HS KENDY Administration Radiology Results: ITS Impressions Chest X-Ray 02/25/25 19:58 Impression: 1: Retrocardiac consolidation may represent atelectasis and/or pneumonia. 2: Small left pleural effusion. Carotid Doppler Study 02/28/25 07:47 IMPRESSION: 1. No hemodynamically significant ICA stenosis (i.e., if any stenosis, less than 50%). 2. Normal bilateral antegrade vertebral artery flow. Stenosis measured by Society of Radiologists in Ultrasound (SRU) criteria. Labs Labs: Laboratory Results - last 24 hr 02/27/25 02/27/25 02/27/25 05:35 16:30 20:52 WBC RBC Hgb Hct MCV MCH MCHC RDW Plt Count MPV Immature Gran % (Auto) Neut % (Auto) Lymph % (Auto) [place] % (Auto) Eos % (Auto) Baso % (Auto) Lymph # (Auto) [place] # (Auto) Eos # (Auto) Baso # (Auto) Abs Immat Gran (auto) Absolute Neuts (auto) Absolute Nucleated RBC Band Neutrophils % Nucleated RBC % Platelet Estimate Hypochromasia Anisocytosis Schistocytes ESR 17 APTT 58.2 H Sodium Potassium Chloride Carbon Dioxide Anion Gap BUN Creatinine Estim Creat Clear Calc Estimated GFR Glucose Calcium Total Bilirubin AST ALT Alkaline Phosphatase C-Reactive Protein 0.8 Total Protein Albumin Nasal MRSA (PCR) Influenza A (RT-PCR) Influenza B (RT-PCR) RSV (RT-PCR) SARS-CoV-2 RNA (RT-PCR) 02/28/25 02/28/25 02/28/25 04:08 11:38 12:02 WBC 15.2 H RBC 3.67 L Hgb 8.3 L Hct 29.2 L MCV 79.6 L MCH 22.6 L MCHC 28.4 L RDW 29.0 H Plt Count 275 MPV 8.9 Immature Gran % (Auto) 0.7 H Neut % (Auto) 90.0 H Lymph % (Auto) 4.7 L [place] % (Auto) 4.5 Eos % (Auto) 0.0 Baso % (Auto) 0.1 L Lymph # (Auto) 0.71 L [place] # (Auto) 0.7 H Eos # (Auto) 0.0 Baso # (Auto) 0.0 Abs Immat Gran (auto) 0.11 H Absolute Neuts (auto) 13.7 H Absolute Nucleated RBC 0.000 Band Neutrophils % Not Reportable Nucleated RBC % 0.0 Platelet Estimate Adequate Hypochromasia 2+ Anisocytosis 2+ Schistocytes None seen ESR APTT 136.0 H 49.6 H Sodium 135 L Potassium 3.9 Chloride 103 Carbon Dioxide 25 Anion Gap 7 BUN 35 H Creatinine 1.67 H Estim Creat Clear Calc 19 Estimated GFR 30 L Glucose 120 H Calcium 7.8 L Total Bilirubin 0.2 AST 19 ALT 16 Alkaline Phosphatase 116 C-Reactive Protein Total Protein 5.4 L Albumin 2.8 L Nasal MRSA (PCR) Detected A* Influenza A (RT-PCR) Negative Influenza B (RT-PCR) Negative RSV (RT-PCR) Negative SARS-CoV-2 RNA (RT-PCR) Negative
--- NOTE | 2025-02-28 15:27 | WPDHPUPDATE1 ---
History and Physical Update Update Date/Time: 02/28/25 15:27 History and Physical has been reviewed, including an updated exam of the patient. There are NO changes in the patient's condition. Risks, benefits, and alternatives have been discussed and questions answered. Patient agrees to proceed with procedure.
--- NOTE | 2025-02-28 15:28 | P.SEDATION_ITS ---
Moderate Sedation Note-Pt Data Patient Data Diagnosis: Recurrent chest pain Present Complaint: Chest pain Procedure to be performed/Plan: Coronary angiogram Allergies Allergy/AdvReac Type Severity Reaction Status Date / Time amphetamine (From Adderall) Allergy Unknown Unknown Verified 02/28/25 11:19 dextroamphetamine (From Allergy Unknown Unknown Verified 02/28/25 11:19 Adderall) lorazepam Allergy Unknown Agitated Verified 02/28/25 11:19 Penicillins Allergy Unknown Swelling Verified 02/28/25 11:19 of Lip/Tongue/Throat Sulfa (Sulfonamide AdvReac Unknown Nausea Verified 02/28/25 11:19 Antibiotics) Home Medications ?Medication ?Instructions ?Recorded ?Confirmed ?Type prednisone 10 mg tablet 5 mg PO DAILY Shortness Of B reath 09/20/20 02/14/25 History Or Wheezing albuterol sulfate 90 mcg/actuation 90 mcg inhalation Q ID PRN 08/16/22 02/14/25 History aerosol inhaler Shortness Of Breath gabapentin 100 mg capsule 100 mg PO DAILY 08/16/22 History losartan 100 mg tablet 100 mg PO DAILY 08/16/22 History mirtazapine 15 mg tablet 15 mg PO QHS 08/16/22 History naproxen 500 mg tablet 500 mg PO Q12H 08/16/2201/31 History nitroglycerin 0.4 mg sublingual 0.4 mg sublingual BID PRN Chest 08/16/22 02/14/25 History tablet Pain sumatriptan succinate 100 mg tablet 100 mg PO BID PRN Headache 08/16/22 02/14/25 History aspirin 81 mg tablet,delayed 81 mg PO DAILY 11/25/22 0 02/14/25 History release nortriptyline 10 mg capsule 10 mg PO HS 08/23/2302/14 History tizanidine 4 mg tablet 4 mg PO QID PRN Back Pain 02/14/25 History trazodone 100 mg tablet 100 mg PO HS 08/23/23 History apixaban 2.5 mg tablet (Eliquis) 2.5 mg PO BID 4 02/14/25 History oxycodone-acetaminophen 7.5 mg-325 1 tablet PO BID PRN Pain 03/14/24 02/14/25 History mg tablet pantoprazole 40 mg tablet,delayed 40 mg PO QAM #15 tab s 03/15/24 02/14/25 Rx release azithromycin 250 mg tablet 250 mg PO DAILY 5 days #5 t abs 05/08/24 02/14/25 Rx (Zithromax) prednisone 20 mg tablet 20 mg PO BID 3 days #6 tabs 05/08/24 02/14/25 Rx ondansetron 4 mg disintegrating 4 mg PO Q8H PRN nausea and 05/24/24 02/14/25 Rx tablet vomiting #14 tabs albuterol sulfate 90 mcg/actuation 1 inh inhalation QI D PRN shortness 02/26/25 02/26/25 History aerosol inhaler of breath or wheezing apixaban 2.5 mg tablet (Eliquis) 2.5 mg PO BID 5 02/26/25 History aspirin 81 mg tablet,delayed 81 mg PO DAILY 02/26/25 0 02/26/25 History release (Adult Aspirin Regimen) doxycycline hyclate 100 mg capsule 100 mg PO Q12H 02/0102/26/25 History gabapentin 100 mg capsule 100 mg PO DAILY 02/26/25 History losartan 100 mg tablet 100 mg PO DAILY 02/26/25 History mirtazapine 15 mg tablet 15 mg PO HS 02/26/25 5 History naproxen 500 mg tablet 500 mg PO Q12H 02/26/2502/01 History nitroglycerin 0.4 mg sublingual 0.4 mg sublingual Q5M PRN chest 02/26/25 02/26/25 History tablet pain nortriptyline 10 mg capsule 10 mg PO HS 02/26/2502/26 History ondansetron 4 mg disintegrating 4 mg translingual Q8H PRN nausea 02/26/25 02/26/25 History tablet and vomiting oxycodone-acetaminophen 7.5 mg-325 1 tablet PO BID PRN pain (scale 02/26/25 02/26/25 History mg tablet score 7-10) pantoprazole 40 mg tablet,delayed 40 mg PO QAM 5 02/26/25 History release prednisone 5 mg tablet 5 mg PO DAILY 02/26/2502/26 History sumatriptan succinate 100 mg 100 mg PO BID PRN migrain e headache 02/26/25 02/26/25 History tablet (Imitrex) tizanidine 4 mg tablet 4 mg PO QID PRN muscle spast icity 02/26/25 02/26/25 History trazodone 100 mg tablet 100 mg PO HS 02/26/25 History Current Medications: Active Medications Hydrocodone Bitart/Acetaminophen (Hydrocodone/Acetaminophen (*Crx) 5-325 Mg Tablet) 1 tab PO Q6H PRN PRN Reason: Pain Rated 4-6 Last Admin: 02/28/25 10:59 Dose: 1 tab Albuterol/Ipratropium (Ipratropium 0.5 Mg/Albuterol Sulfate 2.5 Mg Ampul.Neb 3 Ml) 3 ml INHALATION Q6HRT [facility] Last Admin: 02/28/25 14:35 Dose: 3 ml Aspirin (Aspirin 81 Mg Enteric Tablet) 81 mg PO DAILY [facility] Last Admin: 02/28/25 08:32 Dose: 81 mg Doxycycline Hyclate (Doxycycline Hyclate 100 Mg Tablet) 100 mg PO Q12HR [facility] Stop: 03/07/25 09:01 Gabapentin (Gabapentin 100 Mg Capsule) 100 mg PO DAILY [facility] Last Admin: 02/28/25 08:32 Dose: 100 mg Heparin Sodium (Porcine) (Heparin Sodium 5,000 Units/Ml Vial) 3,500 units IV PUSH PRN PRN PRN Reason: aPTT less than 55 seconds Last Admin: 02/28/25 12:31 Dose: 3,500 units Heparin Sodium (Porcine) (Heparin Sodium 5,000 Units/Ml Vial) 1,500 units IV PUSH PRN PRN PRN Reason: aPTT 55 - 70 seconds Last Admin: 02/27/25 21:47 Dose: 1,500 units Hydroxyzine HCl (Hydroxyzine Hcl 25 Mg Tablet) 25 mg PO Q6H PRN PRN Reason: Itching Last Admin: 02/27/25 23:28 Dose: 25 mg Heparin Sodium/Dextrose (Heparin Sodium/D5w 100 Units/Ml) 25,000 units in 250 mls @ 10 mls/hr IV CONT .Q24H KENDY; Protocol Last Titration: 02/28/25 12:30 Dose: 1,000 units/hr, 10 mls/hr Sodium Chloride (Normal Saline Iv) 1,000 mls @ 100 mls/hr IV CONT .Q10H ONE Stop: 02/28/25 17:16 Last Admin: 02/28/25 10:17 Dose: 100 mls/hr Ketorolac Tromethamine (Ketorolac 15 Mg/Ml Vial (*Bkc)) 15 mg IV PUSH Q6H [facility] Last Admin: 02/28/25 12:31 Dose: 15 mg Levofloxacin (Levofloxacin 500 Mg Tablet) 500 mg PO Q48HR [facility] Stop: 03/04/25 09:01 Losartan Potassium (Losartan Potassium 100 Mg Tablet) 100 mg PO DAILY [facility] Last Admin: 02/28/25 08:32 Dose: 100 mg Methylprednisolone Sodium Succinate (Methylprednisolone Sod Succ 40 Mg Vial) 40 mg IV PUSH Q6HR [facility] Last Admin: 02/28/25 11:58 Dose: 40 mg Mirtazapine (Mirtazapine 15 Mg Tablet) 15 mg PO HS [facility] Last Admin: 02/27/25 20:34 Dose: 15 mg Morphine Sulfate (Morphine Sulfate (*Crx) 2 Mg/Ml Inj) 0.5 mg IV PUSH Q4H PRN PRN Reason: Pain Rated 7-10 Last Admin: 02/26/25 18:49 Dose: 0.5 mg Naproxen (Naproxen 500 Mg Tablet) 500 mg PO Q12HR [facility] On Hold: 02/27/25 09:00 Last Admin: 02/26/25 20:21 Dose: Not Given Nitroglycerin (Nitroglycerin Sl 0.4 Mg Tablet) 0.4 mg SUBLINGUAL PRN PRN PRN Reason: Chest Pain Last Admin: 02/26/25 09:11 Dose: 0.4 mg Nitroglycerin (Nitroglycerin Sl 0.4 Mg Tablet) 0.4 mg SUBLINGUAL Q5M PRN PRN Reason: Chest Pain Nortriptyline HCl (Nortriptyline Hcl 10 Mg Capsule) 10 mg PO HS [facility] Last Admin: 02/27/25 20:34 Dose: 10 mg Ondansetron HCl (Ondansetron Hcl Odt 4 Mg Tablet) 4 mg BY MOUTH Q8H PRN PRN Reason: Nausea And Vomiting Last Admin: 02/28/25 14:21 Dose: 4 mg Pantoprazole Sodium (Pantoprazole 40 Mg Tablet) 40 mg PO QAM [facility] Last Admin: 02/28/25 08:32 Dose: 40 mg Perflutren Lipid Microsphere (Perflutren Lipid Microspheres 1.5 Ml Vial Diluted To 10 Ml Total Volume) 0 ml IV PUSH ONCE PRN; Protocol PRN Reason: adequate visualization Stop: 03/01/25 10:07 Tizanidine HCl (Tizanidine Hcl 4 Mg Tablet) 4 mg PO QID PRN PRN Reason: Muscle Spasticity Last Admin: 02/28/25 14:21 Dose: 4 mg Trazodone HCl (Trazodone Hcl 50 Mg Tablet) 100 mg PO HS KENDY Last Admin: 02/27/25 20:33 Dose: 100 mg Sedation/Anesthesia: No previous sedation/anesthesia problems (including family history). [facility] Past Medical History Medical History CKD (chronic kidney disease) stage 3, GFR 30-59 ml/min Carotid stenosis Bladder neoplasm of uncertain malignant potential Malingering Hyperlipidemia Hypertension GI bleed Gastroesophageal reflux disease Cerebrovascular accident Per patient reports, she had 2 or 3 strokes, the last being in April 2019 although not well documented. Chronic obstructive pulmonary disease Coronary artery disease Cerebral atherosclerosis Lupus Patient states she has lupus, not well documented. Fibromyalgia Questionable history of fibromyalgia Anxiety Depression Systemic lupus erythematosus Hyperpituitarism Left foot drop Osteoporosis Bladder cancer Arthritis Renal cancer Gastric ulcer Bronchitis Myocardial infarction Peripheral neuropathy Meningitis Early satiety Chronic iron deficiency anemia Surgical History Surgical History History of incision and drainage (06/2022) Right groin abscess. Right groin abscess had been due to perforation of bowel into the incarcerated hernia earlier in the same hospitalization History of resection of small bowel (06/20/22) Small-bowel resection with repair of incarcerated right inguinal hernia. History of bilateral breast reduction surgery History of cardiac defibrillator placement Reportedly for ventricular tachycardia. History of heart artery stent History of hysterectomy History of cholecystectomy History of tonsillectomy History of cardiac catheterization Family History Family History Mother Myocardial infarct Cardiovascular disease Hypertension CHF (congestive heart failure) Father Hypertension Father Hypertension Mother Hypertension Family history of cardiovascular disease Social History Social History Social History: Surrogate medical decision maker: Maxi Carrasquillo, son. Code status: Do not resuscitate. Smoking packs per day: 0.25 Smoking cigarettes per day: 5.0 Years smoked: 49 Smoking pack-years: 12.25 Smoking status: Current every day smoker Tobacco type: cigarettes Second hand tobacco smoke exposure: Yes Alcohol intake: never Substance use: never Substance use type: does not use Do You Feel Safe in your Home?: Yes Lack of Transportation: No Lack of Food: Never True Current Housing: I Have Housing Concerned About Future Housing: No Difficulty Paying Gas/Electric Bills: No Difficulty Paying for Meds: No Currently Unemployed: No Education: High School Diploma/GED Difficulty w/ Childcare or Family Care: No Additional living arrangements comments: with three children. Lives in [place]. 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 Spiritual care concerns: No Agree to blood products: Yes Mod Sed Physical Exam Physical Exam Pre Procedural Exam: Normal: Appearance, Eyes, Ears, Nose, Neck, Throat, Airway, Lungs, Heart Size, Heart Rate, Heart Rhythm, Neuro Exam, Abdomen, Liver, Kidneys, Spleen, Breasts, Genitalia, Extremities and Skin Hours since solid foods: 8 Hours since liquid intake: 8 Mallampati Classification: class 1 Internal Medicine - PN: Obj Da Vital Signs Vital Signs: Vital Signs - 24 hr 02/27/25 15:56 02/27/25 16:00 02/27/25 16:00 Temperature 37.1 C Pulse Rate 70 70 Respiratory Rate 18 Blood Pressure 107/39 L Pulse Oximetry 99 Oxygen Delivery Room Air 02/27/25 20:00 02/27/25 20:00 02/27/25 22:00 Temperature Pulse Rate 71 70 Respiratory Rate Blood Pressure Pulse Oximetry Oxygen Delivery Room Air 02/28/25 00:00 02/28/25 00:00 02/28/25 00:00 Temperature 36.4 C L Pulse Rate 70 71 Respiratory Rate 16 Blood Pressure 117/42 L Pulse Oximetry 96 Oxygen Delivery Room Air 02/28/25 02:00 02/28/25 02:44 02/28/25 03:55 Temperature 36.6 C Pulse Rate 70 70 70 Respiratory Rate 16 17 Blood Pressure 136/58 L Pulse Oximetry 94 Oxygen Delivery 02/28/25 04:00 02/28/25 04:00 02/28/25 06:00 Temperature Pulse Rate 71 70 Respiratory Rate Blood Pressure Pulse Oximetry Oxygen Delivery Room Air 02/28/25 08:00 02/28/25 08:00 02/28/25 08:00 Temperature 36.9 C Pulse Rate 73 70 Respiratory Rate 16 Blood Pressure 145/69 H Pulse Oximetry 98 Oxygen Delivery Room Air 02/28/25 08:54 02/28/25 09:02 02/28/25 09:03 Temperature Pulse Rate 70 70 Respiratory Rate 16 16 Blood Pressure Pulse Oximetry 98 Oxygen Delivery Room Air 02/28/25 10:00 02/28/25 11:27 02/28/25 12:00 Temperature 36.8 C Pulse Rate 70 74 Respiratory Rate 16 Blood Pressure 138/57 L Pulse Oximetry 99 Oxygen Delivery Room Air 02/28/25 12:00 02/28/25 13:35 02/28/25 14:35 Temperature Pulse Rate 70 70 71 Respiratory Rate 16 Blood Pressure Pulse Oximetry Oxygen Delivery 02/28/25 14:42 Temperature Pulse Rate 71 Respiratory Rate 18 Blood Pressure Pulse Oximetry Oxygen Delivery Intake/Output Intake/Output: Intake & Output 02/25/25 02/26/25 02/27/25 02/28/25 23:59 23:59 23:59 23:59 Intake Total 846.7 944.2 416.5 Output Total 400 0 50 Balance 446.7 944.2 366.5 Meds/Results Medications: Active Medications Generic Name Dose Route Start Last Admin Trade Name Freq PRN Reason Stop Dose Admin Hydrocodone Bitart/Acetaminophen 1 tab 02/26/25 11:09 02/28/25 10:59 Hydrocodone/Acetaminophen (*Crx) 5-325 Mg Tablet PO 1 tab Q6H PRN Administration Pain Rated 4-6 Albuterol/Ipratropium 3 ml 02/26/25 14:00 02/28/25 14:35 Ipratropium 0.5 Mg/Albuterol Sulfate 2.5 Mg Ampul.Neb 3 Ml INHALATION 3 ml Q6HRT KENDY Administration Aspirin 81 mg 02/27/25 09:00 02/28/25 08:32 Aspirin 81 Mg Enteric Tablet PO 81 mg DAILY KENDY Administration Doxycycline Hyclate 100 mg 02/28/25 18:00 Doxycycline Hyclate 100 Mg Tablet PO 03/07/25 09:01 Q12HR KENDY Gabapentin 100 mg 02/27/25 09:00 02/28/25 08:32 Gabapentin 100 Mg Capsule PO 100 mg DAILY KENDY Administration Heparin Sodium (Porcine) 3,500 units 02/25/25 23:45 02/28/25 12:31 Heparin Sodium 5,000 Units/Ml Vial IV PUSH 3,500 units PRN PRN Administration aPTT less than 55 seconds Heparin Sodium (Porcine) 1,500 units 02/25/25 23:45 02/27/25 21:47 Heparin Sodium 5,000 Units/Ml Vial IV PUSH 1,500 units PRN PRN Administration aPTT 55 - 70 seconds Hydroxyzine HCl 25 mg 02/27/25 10:24 02/27/25 23:28 Hydroxyzine Hcl 25 Mg Tablet PO 25 mg Q6H PRN Administration Itching Heparin Sodium/Dextrose 25,000 units in 250 mls @ 10 mls/hr 02/25/25 23:45 02/28/25 12:30 Heparin Sodium/D5w 100 Units/Ml IV CONT 1,000 units/hr .Q24H KENDY 10 mls/hr Protocol Titration 1,000 UNITS/HR Sodium Chloride 1,000 mls @ 100 mls/hr 02/28/25 07:17 02/28/25 10:17 Normal Saline Iv IV CONT 02/28/25 17:16 100 mls/hr .Q10H ONE Administration Ketorolac Tromethamine 15 mg 02/26/25 19:00 02/28/25 12:31 Ketorolac 15 Mg/Ml Vial (*Bkc) IV PUSH 15 mg Q6H KENDY Administration Levofloxacin 500 mg 03/02/25 09:00 Levofloxacin 500 Mg Tablet PO 03/04/25 09:01 Q48HR KENDY Losartan Potassium 100 mg 02/26/25 13:50 02/28/25 08:32 Losartan Potassium 100 Mg Tablet PO 100 mg DAILY KENDY Administration Methylprednisolone Sodium Succinate 40 mg 02/26/25 18:00 02/28/25 11:58 Methylprednisolone Sod Succ 40 Mg Vial IV PUSH 40 mg Q6HR KENDY Administration Mirtazapine 15 mg 02/26/25 21:00 02/27/25 20:34 Mirtazapine 15 Mg Tablet PO 15 mg HS KENDY Administration Morphine Sulfate 0.5 mg 02/26/25 13:45 02/26/25 18:49 Morphine Sulfate (*Crx) 2 Mg/Ml Inj IV PUSH 0.5 mg Q4H PRN Administration Pain Rated 7-10 Naproxen 500 mg 02/26/25 21:00 02/26/25 20:21 Naproxen 500 Mg Tablet PO Not Given On Hold: 02/27/25 09:00 Q12HR KENDY Nitroglycerin 0.4 mg 02/25/25 23:49 02/26/25 09:11 Nitroglycerin Sl 0.4 Mg Tablet SUBLINGUAL 0.4 mg PRN PRN Administration Chest Pain Nitroglycerin 0.4 mg 02/26/25 13:44 Nitroglycerin Sl 0.4 Mg Tablet SUBLINGUAL Q5M PRN Chest Pain Nortriptyline HCl 10 mg 02/26/25 21:00 02/27/25 20:34 Nortriptyline Hcl 10 Mg Capsule PO 10 mg HS KENDY Administration Ondansetron HCl 4 mg 02/26/25 13:44 02/28/25 14:21 Ondansetron Hcl Odt 4 Mg Tablet BY MOUTH 4 mg Q8H PRN Administration Nausea And Vomiting Pantoprazole Sodium 40 mg 02/27/25 09:00 02/28/25 08:32 Pantoprazole 40 Mg Tablet PO 40 mg QAM KENDY Administration Perflutren Lipid Microsphere 0 ml 02/26/25 10:07 Perflutren Lipid Microspheres 1.5 Ml Vial Diluted To 10 Ml Total Volume IV PUSH 03/01/25 10:07 ONCE PRN adequate visualization Protocol Tizanidine HCl 4 mg 02/26/25 13:44 02/28/25 14:21 Tizanidine Hcl 4 Mg Tablet PO 4 mg QID PRN Administration Muscle Spasticity Trazodone HCl 100 mg 02/26/25 21:00 02/27/25 20:33 Trazodone Hcl 50 Mg Tablet PO 100 mg HS KENDY Administration Radiology Results: ITS Impressions Chest X-Ray 02/25/25 19:58 Impression: 1: Retrocardiac consolidation may represent atelectasis and/or pneumonia. 2: Small left pleural effusion. Carotid Doppler Study 02/28/25 07:47 IMPRESSION: 1. No hemodynamically significant ICA stenosis (i.e., if any stenosis, less than 50%). 2. Normal bilateral antegrade vertebral artery flow. Stenosis measured by Society of Radiologists in Ultrasound (SRU) criteria. Labs 02/28/25 04:08 02/28/25 04:08 Labs: Laboratory Results - last 24 hr 02/27/25 02/27/25 02/27/25 05:35 16:30 20:52 WBC RBC Hgb Hct MCV MCH MCHC RDW Plt Count MPV Immature Gran % (Auto) Neut % (Auto) Lymph % (Auto) Sharkey % (Auto) Eos % (Auto) Baso % (Auto) Lymph # (Auto) Sharkey # (Auto) Eos # (Auto) Baso # (Auto) Abs Immat Gran (auto) Absolute Neuts (auto) Absolute Nucleated RBC Band Neutrophils % Nucleated RBC % Platelet Estimate Hypochromasia Anisocytosis Schistocytes ESR 17 APTT 58.2 H Sodium Potassium Chloride Carbon Dioxide Anion Gap BUN Creatinine Estim Creat Clear Calc Estimated GFR Glucose Calcium Total Bilirubin AST ALT Alkaline Phosphatase C-Reactive Protein 0.8 Total Protein Albumin Nasal MRSA (PCR) Influenza A (RT-PCR) Influenza B (RT-PCR) RSV (RT-PCR) SARS-CoV-2 RNA (RT-PCR) 02/28/25 02/28/25 02/28/25 04:08 11:38 12:02 WBC 15.2 H RBC 3.67 L Hgb 8.3 L Hct 29.2 L MCV 79.6 L MCH 22.6 L MCHC 28.4 L RDW 29.0 H Plt Count 275 MPV 8.9 Immature Gran % (Auto) 0.7 H Neut % (Auto) 90.0 H Lymph % (Auto) 4.7 L Sharkey % (Auto) 4.5 Eos % (Auto) 0.0 Baso % (Auto) 0.1 L Lymph # (Auto) 0.71 L Sharkey # (Auto) 0.7 H Eos # (Auto) 0.0 Baso # (Auto) 0.0 Abs Immat Gran (auto) 0.11 H Absolute Neuts (auto) 13.7 H Absolute Nucleated RBC 0.000 Band Neutrophils % Not Reportable Nucleated RBC % 0.0 Platelet Estimate Adequate Hypochromasia 2+ Anisocytosis 2+ Schistocytes None seen ESR APTT 136.0 H 49.6 H Sodium 135 L Potassium 3.9 Chloride 103 Carbon Dioxide 25 Anion Gap 7 BUN 35 H Creatinine 1.67 H Estim Creat Clear Calc 19 Estimated GFR 30 L Glucose 120 H Calcium 7.8 L Total Bilirubin 0.2 AST 19 ALT 16 Alkaline Phosphatase 116 C-Reactive Protein Total Protein 5.4 L Albumin 2.8 L Nasal MRSA (PCR) Detected A* Influenza A (RT-PCR) Negative Influenza B (RT-PCR) Negative RSV (RT-PCR) Negative SARS-CoV-2 RNA (RT-PCR) Negative ASA Classification/Sedation ASA Classification/Sedation ASA Class: I Emergent: No Risks: Risks, benefits and alternatives explained and patient/family accepted plan for sedation. Patient re-evaluated immediately prior to sedation.
--- NOTE | 2025-02-28 16:45 | WPDCARDPROC ---
Cardiac Cath Procedure Note Date of procedure:: 02/28/25 Performing physician:: Lila Argueta MD Date of service02/28/2025 Indication:: Recurrent chest pains Brief clinical history:: This 74-year-old female with history of pacemaker, hypertension, prior CVA on anticoagulation who presents here to the hospital with chest pain. Troponins minimally elevated. Due to recurrent complaints of chest pain we elected to bring him in for cardiac catheterization Procedure Procedure performed:: 1-Moderate sedation that started at 4:16 p.m. and ended at 4:33 p.m. total duration 70 minutes using3 mg of Versed and 25 mcg fentanyl. The registered nurse was radha pate 2-Selective left and right coronary angiogram. 3-Left heart catheterization with measurement of LVEDP and measurement of gradient across aortic valve. 4-Right common femoral arterial angiogram. 5-Deployment of 6 Nauruan Angio-Seal. Sedation/Medication given:: Moderate sedation. Access site:: Right common femoral artery. Estimated blood loss:: 10cc Procedure note:: After informed consent patient was brought in to energy systems laboratory director with the was draped and prepped in usual manner. Moderate sedation was given and the right groin was infiltrated using 1% lidocaine. Five Nauruan sheath was obtained using micropuncture needle and the modified Seldinger technique. Selective left coronary angiogram was done using JL4 catheter with the tip of the catheter placed in the left main coronary artery. Selective right coronary angiogram was done using JR4 catheter with the tip of the catheter placed to the right coronary artery. After that 5 Nauruan pigtail catheter was advanced across the aortic valve into the left ventricle with measurement of LVEDP and measurement of gradient across aortic valve. Right common femoral arterial angiogram was done. Findings:: 1- left coronary artery is a large artery that divides into large LAD, large circumflex artery. Left main has calcification and minimal irregularities. 2- left anterior descending artery is a large artery that runs and wraps around the apex. Has diffuse calcification and minimal irregularities. 3- leftcircumflex artery is a large artery and has dense calcifications but no obstructive CAD. 4- right coronary artery is large and dominant with calcification but no significant obstruction. 5- LVEDP was 18 mm Hg and no gradient across aortic valve. 6- opening arterial pressure was 174/74 and closing pressure was 160/59 7- right femoral artery angiogram shows diffuse irregularities. Conclusion:: Nonobstructive CAD and calcification Assessment and Plan Assessment and plan (1) Chest pain: Code(s): R07.9 - Chest pain, unspecified Status: Acute Plan Continue risk factor modification for CAD
[2025-02-28] MEDS: DOXYCYCLINE HYCLATE 100 MG TABLET PO (17:35)
[2025-02-28] MEDS: SODIUM CHLORIDE 0.9% IV 600 ML 100 ML IV CONT (18:49)
[2025-02-28] MEDS: NORTRIPTYLINE HCL 10 MG CAPSULE PO (20:49)
[2025-02-28] MEDS: MIRTAZAPINE 15 MG TABLET PO (20:49)
[2025-02-28] MEDS: MORPHINE SULFATE (*CRX) 2 MG/ML INJ 0.5 MG IV PUSH (22:09)
[2025-03-01] VITALS (20 sets, daily range): BP systolic 111–185; BP diastolic 54–77; PULSE 55–74; RESP 15–20; TEMP 36.6–37.2; O2SAT 94–99
[2025-03-01] MEDS: HYDROcodone/acetaminophen (*CRX) 5-325 MG TABLET 1 TAB PO ×4 (00:30→20:40)
[2025-03-01] MEDS: TIZANIDINE HCL 4 MG TABLET PO ×2 (00:30→23:08)
[2025-03-01] MEDS: IPRATROPIUM 0.5 MG/ALBUTEROL SULFATE 2.5 MG AMPUL.NEB 3 ML INHALATION ×4 (01:32→20:51)
[2025-03-01 04:31] LABS: Hematocrit 31.6 % (37.0-47.0); Hemoglobin 9.1 g/dL (12.0-15.0); Immature Granulocyte Percent A 0.7 % (0-0.5); Lymphocytes Absolute Auto 0.39 K/mm3 (0.9-3.2); Mean Corpuscular HGB Conc 28.8 g/dl (32-36); Mean Corpuscular Hemoglobin 23.3 pg (26-34); Mean Corpuscular Volume 81.0 fl (80-100); Nucleated Red Blood Cells Absolute Auto 0.000 K/mm3 (0.0-0.012); Nucleated Red Blood Cells Perc 0.0 % (0.0-0.2); Platelet Count Result 303 k/mm3 (150-375); Red Blood Count 3.90 M/mm3 (4.2-5.4); White Blood Count 15.5 K/mm3 (4.5-10.0)
[2025-03-01 04:59] LABS: Alanine Aminotransferase 15 U/L (6-35); Albumin Level 3.1 g/dL (3.5-5.1); Alkaline Phosphatase 104 U/L (38-126); Anion Gap 10 mmol/L (4-12); Aspartate Amino Transferase 18 U/L (14-36); Bilirubin,Total 0.2 mg/dL (0.2-1.3); Blood Urea Nitrogen 39 mg/dL (7-17); Calcium 7.7 mg/dL (8.4-10.2); Carbon Dioxide 23 mmol/L (22-30); Chloride 101 mmol/L (98-107); Estimated CRCL calculation 20 ml/min; Estimated Glomerular Filt Rate 32; Glucose 157 mg/dL (65-110); Potassium 4.2 mmol/L (3.4-5.0); Sodium 134 mmol/L (137-145); Total Protein 5.8 g/dL (6.3-8.2)
[2025-03-01 05:07] LABS: Anisocytosis 2+; Hypochromasia 2+; Poikilocytosis 1+
[2025-03-01 05:08] LABS: Burr Cells 1+; Ovalocytes 1+; Schistocytes None Seen
--- NOTE | 2025-03-01 07:39 | P.CDI_ITS ---
CDI Query Clarification Request BMI: 16.8 Nutritional Diagnostic Statement: Please refer to the comprehensive nutrition assessment for further information. If you agree with diagnosis of Severe protein calorie malnutrition related to inadequate energy intake as evidenced by poor po intake for greater than 1 month, history of significant weight loss, and NFPE findings for severe subcutaneous fat loss and severe muscle wasting. Please specify severity if known: * Mild * Moderate * Severe * Other/Unknown <Radha Esquivel RN - Last Filed: 03/01/25 07:40> Clarified Diagnosis Clarified Diagnosis: Agree with diagnosis of Severe protein calorie malnutrition - appreciate dietary recommendations <Jan Christianson PA-C - Last Filed: 03/01/25 07:51>
[2025-03-01] MEDS: PANTOPRAZOLE 40 MG TABLET PO (08:29)
[2025-03-01] MEDS: GABAPENTIN 100 MG CAPSULE PO (08:30)
[2025-03-01] MEDS: DOXYCYCLINE HYCLATE 100 MG TABLET PO ×2 (08:30→20:39)
[2025-03-01] MEDS: LOSARTAN POTASSIUM 100 MG TABLET PO (08:30)
[2025-03-01] MEDS: ASPIRIN 81 MG ENTERIC TABLET PO (08:30)
--- NOTE | 2025-03-01 08:58 | ECG_ITS ---
Test Date: 2025-03-01 09:18:03 Measurements Intervals Thornton Rate: 70 P: 143 AK: 140 QRS: 50 QRSD: 101 T: 36 QT: 392 QTc: 425 Interpretive Statements ELECTRONIC ATRIAL PACEMAKER NONSPECIFIC ST & T-WAVE ABNORMALITY ABNORMAL RHYTHM ECG Compared to ECG 02/28/2025 07:01:27 No significant changes Electronically Signed On 03-01-2025 14:43:02 CDT by Lila Argueta M.D.
[2025-03-01] MEDS: ONDANSETRON HCL ODT 4 MG TABLET BY MOUTH (11:04)
[2025-03-01] MEDS: MORPHINE SULFATE (*CRX) 2 MG/ML INJ 0.5 MG IV PUSH (11:04)
--- NOTE | 2025-03-01 12:54 | P.PNIM_ITS ---
Progress Note: A&P Assessment and Plan (1) Acute non-ST elevation myocardial infarction (NSTEMI): Code(s): I21.4 - Non-ST elevation (NSTEMI) myocardial infarction Status: Acute Assessment and Plan: * Monitor vital signs, I&Os, chest pain, shortness of breath and patient is a fall risk * Monitor PTT, serial troponins, Serum electrolytes, and cbc * Keep serum potassium >4 and keep magnesium >2 * Heparin drip per ACS protocol * Monitor for bloody bowel movements, chest pain, SOB or dizziness/lightheadedness * DVT Px: Heparin Drip * Cardiology consult * Start PPI, continue aspirin, apixaban, and losartan * Transthoracic echocardiogram - Left ventricular systolic function is normal, estimated at 55-60. - There is mildly increased left ventricular wall thickness. - The left ventricular diastolic function is grade I diastolic dysfunction. - The mid inferior wall, basal inferolateral wall, and mid inferolateral wall are hypokinetic. - Linear artifact in right ventricle suggestive of catheter(s), pacemaker lead(s), or ICD lead(s). - There is mild tricuspid valve regurgitation. - No pulmonary hypertension, estimated pulmonary arterial systolic pressure is 35 mmHg. - Pleural effusion. * Left heart catheterization per cardiology * Nonobstructive CAD and calcification * Repeat EKG on 03/01: electronic atrial pacemaker, no significant changes from previous EKG on 02/26 (2) COPD (chronic obstructive pulmonary disease): Code(s): J44.9 - Chronic obstructive pulmonary disease, unspecified Status: Acute Assessment and Plan: * Monitor vital signs, I&Os, neuro status and patient is a fall risk * Monitor serum electrolytes, cultures and CBC * Monitor Oxygen saturation, Oxygen via NC; wean oxygen as tolerated, keep SpO2 greater than 88% * Send sputum cultures if possible * Duonebz q6H * Solu-Medrol 40 mg IVq6H (3) GERD (gastroesophageal reflux disease): Code(s): K21.9 - Gastro-esophageal reflux disease without esophagitis Status: Acute Assessment and Plan: * During previous hospitalization, she was being worked up for non-cardiac related chest pain through GI * Per GI on 02/15: Having ruled out cardiac etiologies, the most likely explanation for this episodes is esophageal spasms. This could be related to GERD old, with or without esophagitis, or a primary esophageal motility di sorder such as achalasia. * Was planning for EGD/Colonoscopy * Will consult GI again - appreciate further recommendation for possible non- cardiac cause of chest pain * Nursing staff called GI office - okay with setting up scope in outpt setting * Continue pantoprazole, may add on GI cocktail (4) Abnormal chest xray: Code(s): R93.89 - Abnormal findings on diagnostic imaging of other specified body structures Status: Acute Assessment and Plan: * CXR: Retrocardiac consolidation may represent atelectasis and/or pneumonia * started on CAP tx: PO levaquin 750mg 1 time dose, will start 500mg po q48 48hrs after 750mg dose * Viral PCR: Flu/COVID/RSV pending * Consider ordering legionella, mycoplasma and pneumococcal * no supplemental O2 requirement * supportive treatment * trend labs * Monitor vital signs, I&Os, neuro status and patient is a fall risk * Follow WBC, serum electrolytes, temperature curves and cultures * Send sputum cultures * Gentle IV fluid resuscitation (5) MARIELA (acute kidney injury): Code(s): N17.9 - Acute kidney failure, unspecified Status: Acute Assessment and Plan: * Creatinine: 1.67 (baseline appears around 1), GFR: 30, BUN: 35 * IV Fluids: NS @ 100mls/hr * Trend renal function * Trend electrolytes, correct as needed * 03/01: Cr down 1.67 -> 1.56 (6) Hypertension: Code(s): I10 - Essential (primary) hypertension Status: Acute Assessment and Plan: * Patient's blood pressure was reviewed on 02/26 * Blood pressure remains well controlled * Will continue current medications (7) Vision loss, right eye: Code(s): H54.61 - Unqualified visual loss, right eye, normal vision left eye Status: Acute Assessment and Plan: * Endorsing R eye unilateral vision loss this AM * Pupils round equal and reactive * Eye does not appear to be red, swollen or tender on exam * Denies any pain with movement of the eyes * Carotid duplex US: No hemodynamically significant ICA stenosis (i.e., if any stenosis, less than 50%). Normal bilateral antegrade vertebral artery flow. * ESR/CRP ordered * ENT consult * Recommend CT Orbit to r/o sinonasal infectious etiology (8) CAD (coronary artery disease): Code(s): I25.10 - Atherosclerotic heart disease of [place] coronary artery without angina pectoris Status: Acute Assessment and Plan: * Continue at-home medications (9) Smoking history: Code(s): Z87.891 - Personal history of nicotine dependence Status: Acute Assessment and Plan: * Educated on smoking cessation * Will provide nicotine patch if desired (10) Malingering: Code(s): Z76.5 - Malingerer [conscious simulation] Status: Acute Assessment and Plan: * Psych consult Subjective Date/time seen: 03/01/25 12:54 Interval history: 74 year old female with a past medical history of CAD with prior cardiac stent, ICD placement, HTN, CVA, COPD, GERD, CKD and malingering who presented to the hospital for chest pain for the past week. She was recently seen in the hospital but left AMA on 02/15/2025 for similar complaints of chest pain. 03/01/2025 Patient sitting in bed at time of exam. Patient underwent LHC yesterday - Nonobstructive CAD and calcification. Pending CT orbit and PT/OT evaluations. Pt endorsing similar complaints to previous days (chest pain, shortness of breath, back pain, abd pain). Vitals and blood work remain stable, however WBC remains elevated. Creatinine remains elevated but decreasing from yesteday. Cardiology okay'd to downgrade from IMU. Review of Systems Review of Systems: All systems reviewed & are unremarkable except as noted in HPI and below Exam Narrative: Gen - chronically ill appearing female in no acute respiratory distress who is nontoxic-appearing lying semi recumbent in bed HEENT - normocephalic. Atraumatic. Pupils equal round and reactive. Extraocular motions intact. Sclera clear and anicteric. Nares patent. Oropharynx was clear. No oral lesions. Moist mucous membranes. Tongue was midline. Palate [place] symmetrically. No facial asymmetry. Neck - neck was supple. No dominant adenopathy, thyromegaly or masses. Chest - Chest wall tenderness to palpation throughout. Lungs are clear to auscultation bilaterally. No wheezes or crackles. CV - heart was regular rate and rhythm. S1-S2. No murmurs gallops or rubs. Abd - abdomen was soft. Nontender. Nondistended. Positive bowel sounds. No organomegaly or masses. Ext - no clubbing, cyanosis or edema. 2+ DP pulses bilaterally. Neuro - patient is alert and oriented x4. Strength is 5/5 in both upper and lower extremities. Cranial nerves 2-12 are intact. Speech is clear. Psych - normal mood and affect. Patient is pleasant and cooperative. Skin - warm and dry. No rashes noted. Objective Data Vital Signs Vital Signs: Vital Signs - 24 hr 02/28/25 13:35 02/28/25 14:35 02/28/25 14:42 Temperature Pulse Rate 70 71 71 Pulse Rate [Bilateral Pedal (Dorsalis Pedis) Palpation] Respiratory Rate 16 18 Blood Pressure Pulse Oximetry Oxygen Delivery Fraction of Inspired Oxygen 02/28/25 17:00 02/28/25 17:00 02/28/25 17:15 Temperature Pulse Rate 70 Pulse Rate [Bilateral Pedal (Dorsalis Pedis) Palpation] 95 98 Respiratory Rate 14 Blood Pressure 156/78 H Pulse Oximetry 95 Oxygen Delivery Room Air Fraction of Inspired Oxygen 02/28/25 17:15 02/28/25 17:30 02/28/25 17:30 Temperature Pulse Rate 70 70 Pulse Rate [Bilateral Pedal (Dorsalis Pedis) Palpation] 99 Respiratory Rate 16 15 Blood Pressure 164/76 H 141/79 H Pulse Oximetry 98 99 Oxygen Delivery Room Air Room Air Fraction of Inspired Oxygen 02/28/25 17:39 02/28/25 17:45 02/28/25 17:45 Temperature Pulse Rate 75 69 Pulse Rate [Bilateral Pedal (Dorsalis Pedis) Palpation] 97 Respiratory Rate 14 Blood Pressure 145/80 H Pulse Oximetry 97 Oxygen Delivery Room Air Fraction of Inspired Oxygen 02/28/25 18:15 02/28/25 19:46 02/28/25 19:59 Temperature 98.1 F Pulse Rate 70 70 Pulse Rate [Bilateral Pedal (Dorsalis Pedis) Palpation] 70 Respiratory Rate 15 15 Blood Pressure 170/75 H 147/41 H Pulse Oximetry 99 99 Oxygen Delivery Fraction of Inspired Oxygen 02/28/25 20:00 02/28/25 20:00 02/28/25 21:22 Temperature Pulse Rate 70 68 Pulse Rate [Bilateral Pedal (Dorsalis Pedis) Palpation] Respiratory Rate 20 Blood Pressure Pulse Oximetry Oxygen Delivery Room Air Fraction of Inspired Oxygen 21 02/28/25 21:24 02/28/25 22:00 02/28/25 23:32 Temperature 98 F Pulse Rate 65 70 70 Pulse Rate [Bilateral Pedal (Dorsalis Pedis) Palpation] Respiratory Rate 20 15 Blood Pressure 149/63 H Pulse Oximetry 95 98 Oxygen Delivery Room Air Fraction of Inspired Oxygen 03/01/25 00:00 03/01/25 00:00 03/01/25 01:32 Temperature Pulse Rate 70 70 Pulse Rate [Bilateral Pedal (Dorsalis Pedis) Palpation] Respiratory Rate 20 Blood Pressure Pulse Oximetry Oxygen Delivery Room Air Fraction of Inspired Oxygen 21 03/01/25 01:41 03/01/25 02:00 03/01/25 04:00 Temperature 98 F Pulse Rate 71 70 70 Pulse Rate [Bilateral Pedal (Dorsalis Pedis) Palpation] Respiratory Rate 20 15 Blood Pressure 111/59 L Pulse Oximetry 94 Oxygen Delivery Fraction of Inspired Oxygen 03/01/25 04:00 03/01/25 04:00 03/01/25 06:00 Temperature Pulse Rate 72 72 Pulse Rate [Bilateral Pedal (Dorsalis Pedis) Palpation] Respiratory Rate Blood Pressure Pulse Oximetry Oxygen Delivery Room Air Fraction of Inspired Oxygen 03/01/25 07:42 03/01/25 08:00 03/01/25 08:28 Temperature 98.1 F Pulse Rate 70 70 Pulse Rate [Bilateral Pedal (Dorsalis Pedis) Palpation] Respiratory Rate 18 Blood Pressure 185/77 H 135/55 L Pulse Oximetry 98 Oxygen Delivery Fraction of Inspired Oxygen 03/01/25 08:49 03/01/25 08:49 03/01/25 08:56 Temperature Pulse Rate 65 65 72 Pulse Rate [Bilateral Pedal (Dorsalis Pedis) Palpation] Respiratory Rate 20 20 20 Blood Pressure Pulse Oximetry 95 Oxygen Delivery Room Air Fraction of Inspired Oxygen 03/01/25 10:00 03/01/25 12:00 Temperature Pulse Rate 70 72 Pulse Rate [Bilateral Pedal (Dorsalis Pedis) Palpation] Respiratory Rate Blood Pressure Pulse Oximetry Oxygen Delivery Fraction of Inspired Oxygen Intake/Output Intake/Output: Intake & Output 02/26/25 02/27/25 02/28/25 03/01/25 23:59 23:59 23:59 23:59 Intake Total 846.7 944.2 656.5 840 Output Total 400 0 125 825 Balance 446.7 944.2 531.5 15 Meds/Results Medications: Active Medications Generic Name Dose Route Start Last Admin Trade Name Freq PRN Reason Stop Dose Admin Hydrocodone Bitart/Acetaminophen 1 tab 02/26/25 11:09 03/01/25 08:30 Hydrocodone/Acetaminophen (*Crx) 5-325 Mg Tablet PO 1 tab Q6H PRN Administration Pain Rated 4-6 Albuterol/Ipratropium 3 ml 02/26/25 14:00 03/01/25 08:46 Ipratropium 0.5 Mg/Albuterol Sulfate 2.5 Mg Ampul.Neb 3 Ml INHALATION 3 ml Q6HRT KENDY Administration Aspirin 81 mg 02/27/25 09:00 03/01/25 08:30 Aspirin 81 Mg Enteric Tablet PO 81 mg DAILY KENDY Administration Doxycycline Hyclate 100 mg 02/28/25 18:00 03/01/25 08:30 Doxycycline Hyclate 100 Mg Tablet PO 03/07/25 09:01 100 mg Q12HR KENDY Administration Gabapentin 100 mg 02/27/25 09:00 03/01/25 08:30 Gabapentin 100 Mg Capsule PO 100 mg DAILY KENDY Administration Hydroxyzine HCl 25 mg 02/27/25 10:24 03/01/25 04:20 Hydroxyzine Hcl 25 Mg Tablet PO 25 mg Q6H PRN Administration Itching Levofloxacin 500 mg 03/02/25 09:00 Levofloxacin 500 Mg Tablet PO 03/04/25 09:01 Q48HR KENDY Losartan Potassium 100 mg 02/26/25 13:50 03/01/25 08:30 Losartan Potassium 100 Mg Tablet PO 100 mg DAILY KENDY Administration Methylprednisolone Sodium Succinate 40 mg 02/26/25 18:00 03/01/25 11:04 Methylprednisolone Sod Succ 40 Mg Vial IV PUSH 40 mg Q6HR KENDY Administration Mirtazapine 15 mg 02/26/25 21:00 02/28/25 20:49 Mirtazapine 15 Mg Tablet PO 15 mg HS KENDY Administration Morphine Sulfate 0.5 mg 02/26/25 13:45 03/01/25 11:04 Morphine Sulfate (*Crx) 2 Mg/Ml Inj IV PUSH 0.5 mg Q4H PRN Administration Pain Rated 7-10 Nitroglycerin 0.4 mg 02/25/25 23:49 02/26/25 09:11 Nitroglycerin Sl 0.4 Mg Tablet SUBLINGUAL 0.4 mg PRN PRN Administration Chest Pain Nitroglycerin 0.4 mg 02/26/25 13:44 Nitroglycerin Sl 0.4 Mg Tablet SUBLINGUAL Q5M PRN Chest Pain Nortriptyline HCl 10 mg 02/26/25 21:00 02/28/25 20:49 Nortriptyline Hcl 10 Mg Capsule PO 10 mg HS KENDY Administration Ondansetron HCl 4 mg 02/26/25 13:44 03/01/25 11:04 Ondansetron Hcl Odt 4 Mg Tablet BY MOUTH 4 mg Q8H PRN Administration Nausea And Vomiting Pantoprazole Sodium 40 mg 02/27/25 09:00 03/01/25 08:29 Pantoprazole 40 Mg Tablet PO 40 mg QAM KENDY Administration Tizanidine HCl 4 mg 02/26/25 13:44 03/01/25 00:30 Tizanidine Hcl 4 Mg Tablet PO 4 mg QID PRN Administration Muscle Spasticity Trazodone HCl 100 mg 02/26/25 21:00 02/28/25 20:49 Trazodone Hcl 50 Mg Tablet PO 100 mg HS KENDY Administration Radiology Results: ITS Impressions Chest X-Ray 02/25/25 19:58 Impression: 1: Retrocardiac consolidation may represent atelectasis and/or pneumonia. 2: Small left pleural effusion. Carotid Doppler Study 02/28/25 07:47 IMPRESSION: 1. No hemodynamically significant ICA stenosis (i.e., if any stenosis, less than 50%). 2. Normal bilateral antegrade vertebral artery flow. Stenosis measured by Society of Radiologists in Ultrasound (SRU) criteria. Labs Labs: Laboratory Results - last 24 hr 02/28/25 03/01/25 12:02 04:23 WBC 15.5 H RBC 3.90 L Hgb 9.1 L Hct 31.6 L MCV 81.0 MCH 23.3 L MCHC 28.8 L RDW 29.6 H Plt Count 303 MPV 9.3 Immature Gran % (Auto) 0.7 H Neut % (Auto) 93.7 H Lymph % (Auto) 2.5 L [place] % (Auto) 3.0 Eos % (Auto) 0.0 Baso % (Auto) 0.1 L Lymph # (Auto) 0.39 L [place] # (Auto) 0.5 Eos # (Auto) 0.0 Baso # (Auto) 0.0 Abs Immat Gran (auto) 0.11 H Absolute Neuts (auto) 14.5 H Absolute Nucleated RBC 0.000 Band Neutrophils % Not Reportable Nucleated RBC % 0.0 Platelet Estimate Adequate Hypochromasia 2+ Poikilocytosis 1+ Anisocytosis 2+ Ovalocytes 1+ [place] Cells 1+ Schistocytes None seen Sodium 134 L Potassium 4.2 Chloride 101 Carbon Dioxide 23 Anion Gap 10 BUN 39 H Creatinine 1.56 H Estim Creat Clear Calc 20 Estimated GFR 32 L Glucose 157 H Calcium 7.7 L Total Bilirubin 0.2 AST 18 ALT 15 Alkaline Phosphatase 104 Total Protein 5.8 L Albumin 3.1 L Nasal MRSA (PCR) Detected A* Quality VTE Prophylaxis VTE prophylaxis: mechanical ordered
--- NOTE | 2025-03-01 15:44 | WPDGIPROGNO ---
Progress Note: A&P Assessment and Plan (1) Acute non-ST elevation myocardial infarction (NSTEMI): Code(s): I21.4 - Non-ST elevation (NSTEMI) myocardial infarction Status: Acute Assessment and Plan: s/p cardiac cath medical management (2) CAD (coronary artery disease): Code(s): I25.10 - Atherosclerotic heart disease of [place] coronary artery without angina pectoris Status: Acute (3) GERD (gastroesophageal reflux disease): Qualifiers: Esophagitis presence: esophagitis presence not specified Qualified Code(s): K21.9 - Gastro-esophageal reflux disease without esophagitis Code(s): K21.9 - Gastro-esophageal reflux disease without esophagitis Status: Acute Assessment and Plan: ppi for now no objections to discharge plan to do EGD as outpatient, will set up (4) Chest pain: Code(s): R07.9 - Chest pain, unspecified Status: Acute (5) Chronic iron deficiency anemia: Code(s): D50.9 - Iron deficiency anemia, unspecified Status: Acute Assessment and Plan: will also set up colonoscopy as outpatient because of chronic anemia Subjective Date/time seen: 03/01/25 15:44 Interval history: overall much better cardiac cath no major findings Review of Systems Review of Systems: All systems reviewed & are unremarkable except as noted in HPI and below Exam Const: General: comfortable and no acute distress HENMT: Face/Nose/Sinus: Normal nares present Neck: Neck: supple Resp: Auscultation: clear to auscultation bilaterally Cardio: Rate: regular rate Rhythm: regular rhythm GI: Inspection: non-distended GI Palp: Yes Soft to palpation and No Tenderness to palpation present (GI) Auscultation: normal bowel sounds Skin: General skin exam: no rashes or lesions noted Neuro: Speech: normal speech Motor exam (neuro): 5/5 motor strength present throughout Extrem: General: normal to inspection Psych: Affect: Anxious affect present Objective Data Vital Signs Vital Signs: Vital Signs - 24 hr 02/28/25 17:00 02/28/25 17:00 02/28/25 17:15 Temperature Pulse Rate 70 Pulse Rate [Bilateral Pedal (Dorsalis Pedis) Palpation] 95 98 Respiratory Rate 14 Blood Pressure 156/78 H Pulse Oximetry 95 Oxygen Delivery Room Air Fraction of Inspired Oxygen 02/28/25 17:15 02/28/25 17:30 02/28/25 17:30 Temperature Pulse Rate 70 70 Pulse Rate [Bilateral Pedal (Dorsalis Pedis) Palpation] 99 Respiratory Rate 16 15 Blood Pressure 164/76 H 141/79 H Pulse Oximetry 98 99 Oxygen Delivery Room Air Room Air Fraction of Inspired Oxygen 02/28/25 17:39 02/28/25 17:45 02/28/25 17:45 Temperature Pulse Rate 75 69 Pulse Rate [Bilateral Pedal (Dorsalis Pedis) Palpation] 97 Respiratory Rate 14 Blood Pressure 145/80 H Pulse Oximetry 97 Oxygen Delivery Room Air Fraction of Inspired Oxygen 02/28/25 18:15 02/28/25 19:46 02/28/25 19:59 Temperature 98.1 F Pulse Rate 70 70 Pulse Rate [Bilateral Pedal (Dorsalis Pedis) Palpation] 70 Respiratory Rate 15 15 Blood Pressure 170/75 H 147/41 H Pulse Oximetry 99 99 Oxygen Delivery Fraction of Inspired Oxygen 02/28/25 20:00 02/28/25 20:00 02/28/25 21:22 Temperature Pulse Rate 70 68 Pulse Rate [Bilateral Pedal (Dorsalis Pedis) Palpation] Respiratory Rate 20 Blood Pressure Pulse Oximetry Oxygen Delivery Room Air Fraction of Inspired Oxygen 21 02/28/25 21:24 02/28/25 22:00 02/28/25 23:32 Temperature 98 F Pulse Rate 65 70 70 Pulse Rate [Bilateral Pedal (Dorsalis Pedis) Palpation] Respiratory Rate 20 15 Blood Pressure 149/63 H Pulse Oximetry 95 98 Oxygen Delivery Room Air Fraction of Inspired Oxygen 03/01/25 00:00 03/01/25 00:00 03/01/25 01:32 Temperature Pulse Rate 70 70 Pulse Rate [Bilateral Pedal (Dorsalis Pedis) Palpation] Respiratory Rate 20 Blood Pressure Pulse Oximetry Oxygen Delivery Room Air Fraction of Inspired Oxygen 21 03/01/25 01:41 03/01/25 02:00 03/01/25 04:00 Temperature 98 F Pulse Rate 71 70 70 Pulse Rate [Bilateral Pedal (Dorsalis Pedis) Palpation] Respiratory Rate 20 15 Blood Pressure 111/59 L Pulse Oximetry 94 Oxygen Delivery Fraction of Inspired Oxygen 03/01/25 04:00 03/01/25 04:00 03/01/25 06:00 Temperature Pulse Rate 72 72 Pulse Rate [Bilateral Pedal (Dorsalis Pedis) Palpation] Respiratory Rate Blood Pressure Pulse Oximetry Oxygen Delivery Room Air Fraction of Inspired Oxygen 21 03/01/25 07:42 03/01/25 08:00 03/01/25 08:28 Temperature 98.1 F Pulse Rate 70 70 Pulse Rate [Bilateral Pedal (Dorsalis Pedis) Palpation] Respiratory Rate 18 Blood Pressure 185/77 H 135/55 L Pulse Oximetry 98 Oxygen Delivery Fraction of Inspired Oxygen 03/01/25 08:49 03/01/25 08:49 03/01/25 08:56 Temperature Pulse Rate 65 65 72 Pulse Rate [Bilateral Pedal (Dorsalis Pedis) Palpation] Respiratory Rate 20 20 20 Blood Pressure Pulse Oximetry 95 Oxygen Delivery Room Air Fraction of Inspired Oxygen 03/01/25 10:00 03/01/25 12:00 03/01/25 12:05 Temperature Pulse Rate 70 72 Pulse Rate [Bilateral Pedal (Dorsalis Pedis) Palpation] Respiratory Rate Blood Pressure Pulse Oximetry Oxygen Delivery Room Air Fraction of Inspired Oxygen 03/01/25 14:27 03/01/25 14:27 03/01/25 14:42 Temperature Pulse Rate 62 62 65 Pulse Rate [Bilateral Pedal (Dorsalis Pedis) Palpation] Respiratory Rate 20 20 20 Blood Pressure Pulse Oximetry 94 Oxygen Delivery Room Air Fraction of Inspired Oxygen Intake/Output Intake/Output: Intake & Output 02/26/25 02/27/25 02/28/25 03/01/25 23:59 23:59 23:59 23:59 Intake Total 846.7 944.2 656.5 840 Output Total 400 0 125 825 Balance 446.7 944.2 531.5 15 Meds/Results Medications: Active Medications Generic Name Dose Route Start Last Admin Trade Name Freq PRN Reason Stop Dose Admin Hydrocodone Bitart/Acetaminophen 1 tab 02/26/25 11:09 03/01/25 15:00 Hydrocodone/Acetaminophen (*Crx) 5-325 Mg Tablet PO 1 tab Q6H PRN Administration Pain Rated 4-6 Albuterol/Ipratropium 3 ml 02/26/25 14:00 03/01/25 14:27 Ipratropium 0.5 Mg/Albuterol Sulfate 2.5 Mg Ampul.Neb 3 Ml INHALATION 3 ml Q6HRT KENDY Administration Aspirin 81 mg 02/27/25 09:00 03/01/25 08:30 Aspirin 81 Mg Enteric Tablet PO 81 mg DAILY KENDY Administration Doxycycline Hyclate 100 mg 02/28/25 18:00 03/01/25 08:30 Doxycycline Hyclate 100 Mg Tablet PO 03/07/25 09:01 100 mg Q12HR KENDY Administration Gabapentin 100 mg 02/27/25 09:00 03/01/25 08:30 Gabapentin 100 Mg Capsule PO 100 mg DAILY KENDY Administration Hydroxyzine HCl 25 mg 02/27/25 10:24 03/01/25 04:20 Hydroxyzine Hcl 25 Mg Tablet PO 25 mg Q6H PRN Administration Itching Levofloxacin 500 mg 03/02/25 09:00 Levofloxacin 500 Mg Tablet PO 03/04/25 09:01 Q48HR KENDY Losartan Potassium 100 mg 02/26/25 13:50 03/01/25 08:30 Losartan Potassium 100 Mg Tablet PO 100 mg DAILY KENDY Administration Methylprednisolone Sodium Succinate 40 mg 02/26/25 18:00 03/01/25 11:04 Methylprednisolone Sod Succ 40 Mg Vial IV PUSH 40 mg Q6HR KENDY Administration Mirtazapine 15 mg 02/26/25 21:00 02/28/25 20:49 Mirtazapine 15 Mg Tablet PO 15 mg HS KENDY Administration Morphine Sulfate 0.5 mg 02/26/25 13:45 03/01/25 11:04 Morphine Sulfate (*Crx) 2 Mg/Ml Inj IV PUSH 0.5 mg Q4H PRN Administration Pain Rated 7-10 Nitroglycerin 0.4 mg 02/25/25 23:49 02/26/25 09:11 Nitroglycerin Sl 0.4 Mg Tablet SUBLINGUAL 0.4 mg PRN PRN Administration Chest Pain Nitroglycerin 0.4 mg 02/26/25 13:44 Nitroglycerin Sl 0.4 Mg Tablet SUBLINGUAL Q5M PRN Chest Pain Nortriptyline HCl 10 mg 02/26/25 21:00 02/28/25 20:49 Nortriptyline Hcl 10 Mg Capsule PO 10 mg HS KENDY Administration Ondansetron HCl 4 mg 02/26/25 13:44 03/01/25 11:04 Ondansetron Hcl Odt 4 Mg Tablet BY MOUTH 4 mg Q8H PRN Administration Nausea And Vomiting Pantoprazole Sodium 40 mg 02/27/25 09:00 03/01/25 08:29 Pantoprazole 40 Mg Tablet PO 40 mg QAM KENDY Administration Tizanidine HCl 4 mg 02/26/25 13:44 03/01/25 00:30 Tizanidine Hcl 4 Mg Tablet PO 4 mg QID PRN Administration Muscle Spasticity Trazodone HCl 100 mg 02/26/25 21:00 02/28/25 20:49 Trazodone Hcl 50 Mg Tablet PO 100 mg HS KENDY Administration Radiology Results: ITS Impressions Chest X-Ray 02/25/25 19:58 Impression: 1: Retrocardiac consolidation may represent atelectasis and/or pneumonia. 2: Small left pleural effusion. Carotid Doppler Study 02/28/25 07:47 IMPRESSION: 1. No hemodynamically significant ICA stenosis (i.e., if any stenosis, less than 50%). 2. Normal bilateral antegrade vertebral artery flow. Stenosis measured by Society of Radiologists in Ultrasound (SRU) criteria. Labs Labs: Laboratory Results - last 24 hr 03/01/25 04:23 WBC 15.5 H RBC 3.90 L Hgb 9.1 L Hct 31.6 L MCV 81.0 MCH 23.3 L MCHC 28.8 L RDW 29.6 H Plt Count 303 MPV 9.3 Immature Gran % (Auto) 0.7 H Neut % (Auto) 93.7 H Lymph % (Auto) 2.5 L [place] % (Auto) 3.0 Eos % (Auto) 0.0 Baso % (Auto) 0.1 L Lymph # (Auto) 0.39 L [place] # (Auto) 0.5 Eos # (Auto) 0.0 Baso # (Auto) 0.0 Abs Immat Gran (auto) 0.11 H Absolute Neuts (auto) 14.5 H Absolute Nucleated RBC 0.000 Band Neutrophils % Not Reportable Nucleated RBC % 0.0 Platelet Estimate Adequate Hypochromasia 2+ Poikilocytosis 1+ Anisocytosis 2+ Ovalocytes 1+ [place] Cells 1+ Schistocytes None seen Sodium 134 L Potassium 4.2 Chloride 101 Carbon Dioxide 23 Anion Gap 10 BUN 39 H Creatinine 1.56 H Estim Creat Clear Calc 20 Estimated GFR 32 L Glucose 157 H Calcium 7.7 L Total Bilirubin 0.2 AST 18 ALT 15 Alkaline Phosphatase 104 Total Protein 5.8 L Albumin 3.1 L
--- NOTE | 2025-03-01 17:41 | PC.NURSE ---
Pt transferred to room 256 at 1718. Report given to MACHO Tirado.
[2025-03-01] MEDS: MIRTAZAPINE 15 MG TABLET PO (20:39)
[2025-03-01] MEDS: NORTRIPTYLINE HCL 10 MG CAPSULE PO (20:39)
[2025-03-02] VITALS (10 sets, daily range): BP systolic 130; BP diastolic 61; PULSE 70–79; RESP 14–20; TEMP 37; O2SAT 95
[2025-03-02] MEDS: IPRATROPIUM 0.5 MG/ALBUTEROL SULFATE 2.5 MG AMPUL.NEB 3 ML INHALATION ×2 (01:50→08:37)
[2025-03-02] MEDS: HYDROcodone/acetaminophen (*CRX) 5-325 MG TABLET 1 TAB PO ×2 (04:43→11:16)
[2025-03-02 05:05] LABS: Hematocrit 27.7 % (37.0-47.0); Hemoglobin 8.1 g/dL (12.0-15.0); Immature Granulocyte Percent A 1.3 % (0-0.5); Lymphocytes Absolute Auto 0.33 K/mm3 (0.9-3.2); Mean Corpuscular HGB Conc 29.2 g/dl (32-36); Mean Corpuscular Hemoglobin 23.4 pg (26-34); Mean Corpuscular Volume 80.1 fl (80-100); Nucleated Red Blood Cells Absolute Auto 0.000 K/mm3 (0.0-0.012); Nucleated Red Blood Cells Perc 0.0 % (0.0-0.2); Platelet Count Result 289 k/mm3 (150-375); Red Blood Count 3.46 M/mm3 (4.2-5.4); White Blood Count 16.4 K/mm3 (4.5-10.0)
--- NOTE | 2025-03-02 05:05 | ECG_ITS ---
Test Date: 2025-03-02 05:16:17 Measurements Intervals [place] Rate: 70 P: 141 HI: 139 QRS: 25 QRSD: 98 T: 28 QT: 400 QTc: 432 Interpretive Statements ELECTRONIC ATRIAL PACEMAKER NONSPECIFIC ST-T WAVE ABNORMALITY- INF/LAT LEADS BORDERLINE ECG Compared to ECG 03/01/2025 09:18:03 No significant changes Electronically Signed On 03-02-2025 06:15:32 CDT by Dequan Armendariz D.O.
[2025-03-02 05:21] LABS: Alanine Aminotransferase 15 U/L (6-35); Albumin Level 2.8 g/dL (3.5-5.1); Alkaline Phosphatase 135 U/L (38-126); Anion Gap 6 mmol/L (4-12); Aspartate Amino Transferase 20 U/L (14-36); Bilirubin,Total < 0.1 mg/dL (0.2-1.3); Blood Urea Nitrogen 51 mg/dL (7-17); Calcium 8.2 mg/dL (8.4-10.2); Carbon Dioxide 25 mmol/L (22-30); Chloride 103 mmol/L (98-107); Estimated CRCL calculation 21 ml/min; Estimated Glomerular Filt Rate 32; Glucose 134 mg/dL (65-110); Potassium 4.5 mmol/L (3.4-5.0); Sodium 134 mmol/L (137-145); Total Protein 5.3 g/dL (6.3-8.2)
[2025-03-02 05:38] LABS: Anisocytosis 1+; Hypochromasia 2+; Ovalocytes 1+
[2025-03-02 05:39] LABS: Schistocytes None Seen
--- NOTE | 2025-03-02 07:13 | P.PNIM_ITS ---
Progress Note: A&P Assessment and Plan (1) Acute non-ST elevation myocardial infarction (NSTEMI): Code(s): I21.4 - Non-ST elevation (NSTEMI) myocardial infarction Status: Acute Assessment and Plan: - trop I 0.043, 0.052, 0.032 - EKG with no acute ST changes - TTE 02/26 with EF 55-60%, G1DD - cardio consulted - s/p [facility] with nonobstructive CAD and calcification - continue ASA, statin, restart Eliquis? (2) COPD (chronic obstructive pulmonary disease): Code(s): J44.9 - Chronic obstructive pulmonary disease, unspecified Status: Acute Assessment and Plan: -Monitor Oxygen saturation, Oxygen via NC; wean oxygen as tolerated, keep SpO2 greater than 88% - s/p IV steroids, start prednisone -Duonebs (3) GERD (gastroesophageal reflux disease): Code(s): K21.9 - Gastro-esophageal reflux disease without esophagitis Status: Acute Assessment and Plan: -During previous hospitalization, she was being worked up for non-cardiac related chest pain through GI -Per GI on 02/15: Having ruled out cardiac etiologies, the most likely explanation for this episodes is esophageal spasms. This could be related to G ERD old, with or without esophagitis, or a primary esophageal motility disorder such as achalasia. -GI consulted - recommended outpatient EGD/colonoscopy -Continue pantoprazole (4) Abnormal chest xray: Code(s): R93.89 - Abnormal findings on diagnostic imaging of other specified body structures Status: Acute Assessment and Plan: -CXR: Retrocardiac consolidation may represent atelectasis and/or pneumonia - Viral PCR: Flu/COVID/RSV negative - continue Levaquin and doxycyline -no supplemental O2 requirement -supportive treatment (5) MARIELA (acute kidney injury): Code(s): N17.9 - Acute kidney failure, unspecified Status: Acute Assessment and Plan: -Creatinine: 1.67 (baseline appears around 1), GFR: 30, BUN: 35 -IV Fluids: NS @ 100mls/hr -Trend renal function -03/01: Cr down 1.67 -> 1.56 - hold losartan (6) Hypertension: Code(s): I10 - Essential (primary) hypertension Status: Acute Assessment and Plan: * Patient's blood pressure was reviewed on 02/26 * Blood pressure remains well controlled * Will continue current medications (7) Vision loss, right eye: Code(s): H54.61 - Unqualified visual loss, right eye, normal vision left eye Status: Acute Assessment and Plan: * Endorsing R eye unilateral vision loss this AM * Pupils round equal and reactive * Eye does not appear to be red, swollen or tender on exam * Denies any pain with movement of the eyes * Carotid duplex US: No hemodynamically significant ICA stenosis (i.e., if any stenosis, less than 50%). Normal bilateral antegrade vertebral artery flow. * ESR/CRP ordered * ENT consult * Recommend CT Orbit to r/o sinonasal infectious etiology (8) CAD (coronary artery disease): Code(s): I25.10 - Atherosclerotic heart disease of [place] coronary artery without angina pectoris Status: Acute Assessment and Plan: * Continue at-home medications (9) Smoking history: Code(s): Z87.891 - Personal history of nicotine dependence Status: Acute Assessment and Plan: * Educated on smoking cessation * Will provide nicotine patch if desired (10) Malingering: Code(s): Z76.5 - Malingerer [conscious simulation] Status: Acute Assessment and Plan: * Psych consult Subjective Date/time seen: 03/02/25 07:13 Exam Narrative: General: NAD Eyes: EOMI ENT: neck supple Cardiovascular: Regular rate and rhythm Respiratory: Clear to auscultation, respirations even and unlabored on RA Gastrointestinal: Soft, non tender Genitourinary: no suprapubic tenderness Musculoskeletal: No edema Skin: warm, dry Neuro: Alert. Psych: Mood appropriate Objective Data Vital Signs Vital Signs: Vital Signs - 24 hr 03/01/25 07:42 03/01/25 08:00 03/01/25 08:28 Temperature 98.1 F Pulse Rate 70 70 Respiratory Rate 18 Blood Pressure 185/77 H 135/55 L Pulse Oximetry 98 Oxygen Delivery Fraction of Inspired Oxygen 03/01/25 08:49 03/01/25 08:49 03/01/25 08:56 Temperature Pulse Rate 65 65 72 Respiratory Rate 20 20 20 Blood Pressure Pulse Oximetry 95 Oxygen Delivery Room Air Fraction of Inspired Oxygen 03/01/25 10:00 03/01/25 12:00 03/01/25 12:05 Temperature Pulse Rate 70 72 Respiratory Rate Blood Pressure Pulse Oximetry Oxygen Delivery Room Air Fraction of Inspired Oxygen 03/01/25 14:27 03/01/25 14:27 03/01/25 14:42 Temperature Pulse Rate 62 62 65 Respiratory Rate 20 20 20 Blood Pressure Pulse Oximetry 94 Oxygen Delivery Room Air Fraction of Inspired Oxygen 03/01/25 16:00 03/01/25 19:42 03/01/25 20:00 Temperature 97.9 F 99.0 F Pulse Rate 74 70 Respiratory Rate 20 16 Blood Pressure 131/54 L 141/74 H Pulse Oximetry 98 99 Oxygen Delivery Room Air Fraction of Inspired Oxygen 03/01/25 20:00 03/01/25 20:52 03/01/25 20:55 Temperature Pulse Rate 71 55 L 55 L Respiratory Rate 20 20 Blood Pressure Pulse Oximetry 95 Oxygen Delivery Room Air Fraction of Inspired Oxygen 21 03/02/25 00:00 03/02/25 01:50 03/02/25 02:00 Temperature Pulse Rate 70 73 75 Respiratory Rate 20 20 Blood Pressure Pulse Oximetry Oxygen Delivery Fraction of Inspired Oxygen 03/02/25 04:00 03/02/25 04:43 Temperature 98.6 F Pulse Rate 72 71 Respiratory Rate 16 Blood Pressure 130/61 Pulse Oximetry 95 Oxygen Delivery Fraction of Inspired Oxygen Intake/Output Intake/Output: Intake & Output 02/27/25 02/28/25 03/01/25 03/02/25 23:59 23:59 23:59 23:59 Intake Total 944.2 656.5 1680 120 Output Total 0 125 825 Balance 944.2 531.5 855 120 Meds/Results Medications: Active Medications Generic Name Dose Route Start Last Admin Trade Name Freq PRN Reason Stop Dose Admin Hydrocodone Bitart/Acetaminophen 1 tab 02/26/25 11:09 03/02/25 04:43 Hydrocodone/Acetaminophen (*Crx) 5-325 Mg Tablet PO 1 tab Q6H PRN Administration Pain Rated 4-6 Albuterol/Ipratropium 3 ml 02/26/25 14:00 03/02/25 01:50 Ipratropium 0.5 Mg/Albuterol Sulfate 2.5 Mg Ampul.Neb 3 Ml INHALATION 3 ml Q6HRT KENDY Administration Aspirin 81 mg 02/27/25 09:00 03/01/25 08:30 Aspirin 81 Mg Enteric Tablet PO 81 mg DAILY KENDY Administration Doxycycline Hyclate 100 mg 02/28/25 18:00 03/01/25 20:39 Doxycycline Hyclate 100 Mg Tablet PO 03/07/25 09:01 100 mg Q12HR KENDY Administration Gabapentin 100 mg 02/27/25 09:00 03/01/25 08:30 Gabapentin 100 Mg Capsule PO 100 mg DAILY KENDY Administration Hydroxyzine HCl 25 mg 02/27/25 10:24 03/01/25 20:39 Hydroxyzine Hcl 25 Mg Tablet PO 25 mg Q6H PRN Administration Itching Levofloxacin 500 mg 03/02/25 09:00 Levofloxacin 500 Mg Tablet PO 03/04/25 09:01 Q48HR KENDY Losartan Potassium 100 mg 02/26/25 13:50 03/01/25 08:30 Losartan Potassium 100 Mg Tablet PO 100 mg DAILY KENDY Administration Methylprednisolone Sodium Succinate 40 mg 02/26/25 18:00 03/02/25 06:36 Methylprednisolone Sod Succ 40 Mg Vial IV PUSH 40 mg Q6HR KENDY Administration Mirtazapine 15 mg 02/26/25 21:00 03/01/25 20:39 Mirtazapine 15 Mg Tablet PO 15 mg HS KENDY Administration Morphine Sulfate 0.5 mg 02/26/25 13:45 03/01/25 11:04 Morphine Sulfate (*Crx) 2 Mg/Ml Inj IV PUSH 0.5 mg Q4H PRN Administration Pain Rated 7-10 Nitroglycerin 0.4 mg 02/25/25 23:49 02/26/25 09:11 Nitroglycerin Sl 0.4 Mg Tablet SUBLINGUAL 0.4 mg PRN PRN Administration Chest Pain Nitroglycerin 0.4 mg 02/26/25 13:44 Nitroglycerin Sl 0.4 Mg Tablet SUBLINGUAL Q5M PRN Chest Pain Nortriptyline HCl 10 mg 02/26/25 21:00 03/01/25 20:39 Nortriptyline Hcl 10 Mg Capsule PO 10 mg HS KENDY Administration Ondansetron HCl 4 mg 02/26/25 13:44 03/01/25 11:04 Ondansetron Hcl Odt 4 Mg Tablet BY MOUTH 4 mg Q8H PRN Administration Nausea And Vomiting Pantoprazole Sodium 40 mg 02/27/25 09:00 03/01/25 08:29 Pantoprazole 40 Mg Tablet PO 40 mg QAM KENDY Administration Tizanidine HCl 4 mg 02/26/25 13:44 03/01/25 23:08 Tizanidine Hcl 4 Mg Tablet PO 4 mg QID PRN Administration Muscle Spasticity Trazodone HCl 100 mg 02/26/25 21:00 03/01/25 20:39 Trazodone Hcl 50 Mg Tablet PO 100 mg HS KENDY Administration Radiology Results: ITS Impressions Chest X-Ray 02/25/25 19:58 Impression: 1: Retrocardiac consolidation may represent atelectasis and/or pneumonia. 2: Small left pleural effusion. Carotid Doppler Study 02/28/25 07:47 IMPRESSION: 1. No hemodynamically significant ICA stenosis (i.e., if any stenosis, less than 50%). 2. Normal bilateral antegrade vertebral artery flow. Stenosis measured by Society of Radiologists in Ultrasound (SRU) criteria. Orbit CT 03/01/25 18:42 IMPRESSION: 1. Mild mucosal thickening in the maxillary sinuses. 2. Rightward deviation of the nasal septum. Labs Labs: Laboratory Results - last 24 hr 03/02/25 04:39 WBC 16.4 H RBC 3.46 L Hgb 8.1 L Hct 27.7 L MCV 80.1 MCH 23.4 L MCHC 29.2 L RDW 30.1 H Plt Count 289 MPV 9.6 Immature Gran % (Auto) 1.3 H Neut % (Auto) 93.0 H Lymph % (Auto) 2.0 L [place] % (Auto) 3.6 Eos % (Auto) 0.0 Baso % (Auto) 0.1 L Lymph # (Auto) 0.33 L [place] # (Auto) 0.6 Eos # (Auto) 0.0 Baso # (Auto) 0.0 Abs Immat Gran (auto) 0.22 H Absolute Neuts (auto) 15.3 H Absolute Nucleated RBC 0.000 Band Neutrophils % Not Reportable Nucleated RBC % 0.0 Platelet Estimate Adequate Hypochromasia 2+ Anisocytosis 1+ Ovalocytes 1+ Schistocytes None seen Sodium 134 L Potassium 4.5 Chloride 103 Carbon Dioxide 25 Anion Gap 6 BUN 51 H D Creatinine 1.56 H Estim Creat Clear Calc 21 Estimated GFR 32 L Glucose 134 H Calcium 8.2 L Total Bilirubin < 0.1 L AST 20 ALT 15 Alkaline Phosphatase 135 H Total Protein 5.3 L Albumin 2.8 L
[2025-03-02] MEDS: ASPIRIN 81 MG ENTERIC TABLET PO (08:08)
[2025-03-02] MEDS: GABAPENTIN 100 MG CAPSULE PO (08:08)
[2025-03-02] MEDS: PANTOPRAZOLE 40 MG TABLET PO (08:08)
[2025-03-02] MEDS: DOXYCYCLINE HYCLATE 100 MG TABLET PO (08:08)
--- NOTE | 2025-03-02 12:07 | P.DS_ITS ---
DS: Admitting Diagnosis Discharge Date 03/02/25 Admitting Diagnosis -chest pain DS: Discharge Diagnosis Discharge Diagnosis (1) Acute non-ST elevation myocardial infarction (NSTEMI): Code(s): I21.4 - Non-ST elevation (NSTEMI) myocardial infarction Status: Acute (2) COPD (chronic obstructive pulmonary disease): Code(s): J44.9 - Chronic obstructive pulmonary disease, unspecified Status: Acute (3) GERD (gastroesophageal reflux disease): Code(s): K21.9 - Gastro-esophageal reflux disease without esophagitis Status: Acute (4) Abnormal chest xray: Code(s): R93.89 - Abnormal findings on diagnostic imaging of other specified body structures Status: Acute (5) MARIELA (acute kidney injury): Code(s): N17.9 - Acute kidney failure, unspecified Status: Acute (6) Hypertension: Code(s): I10 - Essential (primary) hypertension Status: Acute (7) CAD (coronary artery disease): Code(s): I25.10 - Atherosclerotic heart disease of [place] coronary artery without angina pectoris Status: Acute (8) Smoking history: Code(s): Z87.891 - Personal history of nicotine dependence Status: Acute (9) Malingering: Code(s): Z76.5 - Malingerer [conscious simulation] Status: Acute (10) Diplopia: Code(s): H53.2 - Diplopia Status: Acute DS: Summary Hospital Course Reason for hospitalization: - chest pain Hospital Course: Teagan Sigala is a 74 year old female with a past medical history of CAD with prior cardiac stent, ICD placement, HTN, CVA, COPD, GERD, CKD and malingering who presented to the hospital for chest pain for the past week. ED workup: 98.1F, 76 HR, 19RR, 127/65, 99% on RA WBC 14.1, HGB 10.7, HCT 36.7, PLT 397, sodium 136, potassium 3.4, BUN 20, creat inine 0.93, glucose 101, LFTs WNL, calcium 8.5, lipase 293 Troponin: 0.043 -> 0.052 -> 0.032 EKG: Electronic atrial pacemaker, left ventricular hypertrophy Chest x-ray: Retrocardiac consolidation may represent atelectasis and/or pneumonia, small left pleural effusion Patient was admitted for further cardiac evaluation. Troponin slightly up trended. Patient underwent left heart catheterization which showed nonobstructive CAD and calcifications. Recommended to continue ASA, Eliquis, statin. GI was consulted in light of concern for GI related chest pain and recommended outpatient EGD/colonoscopy. Patient was also started on treatment for pneumonia/COPD exacerbation with improvement in her pain. Antibiotics were continued on discharge. While admitted, patient developed an acute kidney injury. Patient admitted to poor p.o. intake in setting of pain. Per documentation, patient received IV fluids with mild improvement in her creatinine. Creatinine did remain elevated on discharge, however patient was very persistent about being discharged and threatened to leave AMA if not discharged. Patient had good urine output and PO intake on day of discharge. Patient was instructed to hold her losartan, NSAIDS and obtain repeat BMP in 3 days to re-evaluate creatinine. She will also follow closely with her PCP. While admitted, patient complained of double vision that has been ongoing for 7- [address] head no acute process. CT orbit with mild mucosal thickening in the maxillary sinuses. Carotid duplex without significant stenosis. Neuro exam nonfocal. ESR WNL making diagnosis of temporal arteritis unlikely. Symptoms improved with patching right eye. Patient denied eye pain or headache. ENT evaluated and recommended ophthalmology evaluation. Patient stated she will follow up promptly with Ophthalmology as outpatient. Continue antibiotics for sinusitis. Patient was discharged home in stable condition. Strict return precautions discussed. Time Spent with Patient Time attestation: Total time spent providing and/or coordinating discharge services: Time spent: Greater than 30 minutes Exam Narrative: General: NAD Eyes: EOMI ENT: neck supple Cardiovascular: Regular rate and rhythm Respiratory: Clear to auscultation, respirations even and unlabored on RA Gastrointestinal: Soft, non tender Genitourinary: no suprapubic tenderness Musculoskeletal: No edema Skin: warm, dry Neuro: Alert and oriented x4. PEERLA. Cranial nerves II-XII intact. Face symmetric. Speech clear. Strength 5/5 in BUEs/BLEs. Psych: Mood appropriate DS: Data Data Completed and Pending Completed studies during hospitalization: ITS Impressions Chest X-Ray 02/25/25 19:58 Impression: 1: Retrocardiac consolidation may represent atelectasis and/or pneumonia. 2: Small left pleural effusion. Carotid Doppler Study 02/28/25 07:47 IMPRESSION: 1. No hemodynamically significant ICA stenosis (i.e., if any stenosis, less than 50%). 2. Normal bilateral antegrade vertebral artery flow. Stenosis measured by Society of Radiologists in Ultrasound (SRU) criteria. Orbit CT 03/01/25 18:42 IMPRESSION: 1. Mild mucosal thickening in the maxillary sinuses. 2. Rightward deviation of the nasal septum. Head CT 03/02/25 10:58 IMPRESSION: 1. No acute intracranial hemorrhage. No mass effect. 2. There are several low density regions scattered throughout the periventricular and deep white matter which are favored to represent chronic ischemic white matter change. Other etiologies are possible. If of concern, consider a brain MRI with and without contrast for further assessment. 3. Old lacunar infarction in the right basal ganglia. If symptoms persist or worsen, consider a short-term follow-up study or brain MRI imaging for further assessment. Labs on day of discharge: Labs from last 24 hours 03/02/25 04:39 WBC 16.4 H RBC 3.46 L Hgb 8.1 L Hct 27.7 L MCV 80.1 MCH 23.4 L MCHC 29.2 L RDW 30.1 H Plt Count 289 MPV 9.6 Immature Gran % (Auto) 1.3 H Neut % (Auto) 93.0 H Lymph % (Auto) 2.0 L [place] % (Auto) 3.6 Eos % (Auto) 0.0 Baso % (Auto) 0.1 L Lymph # (Auto) 0.33 L [place] # (Auto) 0.6 Eos # (Auto) 0.0 Baso # (Auto) 0.0 Abs Immat Gran (auto) 0.22 H Absolute Neuts (auto) 15.3 H Absolute Nucleated RBC 0.000 Band Neutrophils % Not Reportable Nucleated RBC % 0.0 Platelet Estimate Adequate Hypochromasia 2+ Anisocytosis 1+ Ovalocytes 1+ Schistocytes None seen Sodium 134 L Potassium 4.5 Chloride 103 Carbon Dioxide 25 Anion Gap 6 BUN 51 H D Creatinine 1.56 H Estim Creat Clear Calc 21 Estimated GFR 32 L Glucose 134 H Calcium 8.2 L Total Bilirubin < 0.1 L AST 20 ALT 15 Alkaline Phosphatase 135 H Total Protein 5.3 L Albumin 2.8 L Discharge Plan Discharge Attending physician on discharge: Bere Merritt Consulting providers: Jan Christianson; Blair Jin; Jonas Pham; Bruno Ariza; Néstor Laura; Kelly Dyson. Discharging Clinician: Kelly Dyson. Anticipated Discharge Date/Time: 03/02/25 11:50 Patient Disposition: Home Activity: as tolerated Diet: as tolerated and regular Discharge Instructions: Take all medications as prescribed. Finish antibiotics if prescribed, even if you are feeling better. Follow-up with your primary care provider in 3-5 days. Return to the emergency department if you develop chest pain, shortness of breath, persistent fever >100.4, confusion, loss of consciousness. While in the hospital, you were noted to have a mild acute kidney injury. It is important to stay hydrated and drink plenty of water over the next few days. Losartan can effect your kidney function. HOLD your losartan until you get re peat lab work and follow-up with your primary care doctor. Have your lab work rechecked in 3-5 days (CBC and BMP). Follow-up with an mimeographer in regards to your double vision as soon as possible. If your double vision persists, you may need an MRI of your brain as an outpatient to further assess your brain. You have been prescribed antibiotics to finish for possible pneumonia and sinus infection. [facility] [address] [place] [address] DISCHARGE INSTRUCTIONS - POST CARDIAC CATH Activity Restriction 1. No Driving for 24 hours 2. No lifting, pushing or pulling more than 10 LBS for 1 week 3. No strenuous activity or exercising for 1 week 4. Shower after 24 hours, do not soak in any water such as hot tubs or bath tubs Wound Care 1. Remove dressing 24 hours after your procedure prior to showering 2. Lather soap and water to puncture site and rinse then pat dry 3. You may apply a new band aid to the site and remove aft er 24 hours then leave open to air 4. Monitor daily for redness, drainage, mild swelling and fever Report IMMEDIATELY: CALL 911 1. If you experience any swelling or bleeding from puncture site. Hold firm pressure over the puncture site until help arrives 2. If you experience any new discomfort in you back, neck, jaw, stomach or arm. Any shortness of breath, nausea, vomiting, or cold sweats 3. If you experience any swelling, tenderness, or numbness in your leg or if your leg becomes cold or has color changes. Follow Up 1. Follow your doctors discharge instructions on resuming your medications. Some medications will need to be held after your procedure 2. Follow up with the office to schedule your next appointment with your doctor 3. Drink plenty of water following your procedure, avoid alcohol If you received a stent or a closure device keep your card with you such as in your wallet. Present your card to your doctor appointments to update your health care information. *For any other questions please call the office at [phone]. Office hours are 8AM 4:30PM Friday through Friday. Patient Instructions: Antibiotic Form, Apixaban (By mouth), Heart Attack (DC), Chest Pain (DC), Heart Healthy Diet (DC) Patient Language: Yakut Follow-up/Referrals: Josse,Gideon [Other] - Call for Appointment Referral Note: follow-up in 3-5 days. Follow-up kidney function. Yaz,MD Elias [Non-Staff, Unknown] - Call for Appointment Referral Note: ophthalmology. Call for an appointment as soon as possible. Jonas Schmitz MD [Physician, Gastroenterology] - Call for Appointment Referral Note: follow-up for endoscopy and colonoscopy Discharge Medications: New levofloxacin 500 mg Tablet 500 mg PO Q48HR 1 Days Qty: 1 0RF Rx Instructions: Take 03/04/25 atorvastatin [Lipitor] 20 mg tablet 20 mg PO DAILY Qty: 30 0RF Continued sumatriptan succinate 100 mg tablet 100 mg PO BID PRN (Reason: Headache) nitroglycerin 0.4 mg tablet, sublingual 0.4 mg sublingual BID PRN (Reason: Chest Pain) mirtazapine 15 mg tablet 15 mg PO QHS gabapentin 100 mg capsule 100 mg PO DAILY albuterol sulfate 90 mcg/actuation HFA aerosol inhaler 90 mcg inhalation QID PRN (Reason: Shortness Of Breath) prednisone 10 mg tablet 5 mg PO DAILY Rx Instructions: 1/2 Tab every day aspirin 81 mg Tablet,Delayed Release (Dr/Ec) 81 mg PO DAILY tizanidine 4 mg tablet 4 mg PO QID PRN (Reason: Back Pain) nortriptyline 10 mg capsule 10 mg PO HS trazodone 100 mg tablet 100 mg PO HS Eliquis 2.5 mg tablet 2.5 mg PO BID oxycodone-acetaminophen 7.5-325 mg tablet 1 tablet PO BID PRN (Reason: Pain) pantoprazole 40 mg Tablet,Delayed Release (Dr/Ec) 40 mg PO QAM Qty: 15 0RF ondansetron 4 mg tablet,disintegrating 4 mg PO Q8H PRN (Reason: nausea and vomiting) Qty: 14 0RF sumatriptan succinate [Imitrex] 100 mg tablet 100 mg PO BID PRN (Reason: migraine headache) nitroglycerin 0.4 mg tablet, sublingual 0.4 mg sublingual Q5M PRN (Reason: chest pain) Rx Instructions: do not exceed 3 doses per episode mirtazapine 15 mg tablet 15 mg PO HS gabapentin 100 mg capsule 100 mg PO DAILY albuterol sulfate 90 mcg/actuation HFA aerosol inhaler 1 inh inhalation QID PRN (Reason: shortness of breath or wheezing) prednisone 5 mg tablet 5 mg PO DAILY aspirin [Adult Aspirin Regimen] 81 mg tablet,delayed release (DR/EC) 81 mg PO DAILY tizanidine 4 mg tablet 4 mg PO QID PRN (Reason: muscle spasticity) Rx Instructions: PRN muscle spasms/back pain. nortriptyline 10 mg capsule 10 mg PO HS trazodone 100 mg tablet 100 mg PO HS Eliquis 2.5 mg tablet 2.5 mg PO BID oxycodone-acetaminophen 7.5-325 mg tablet 1 tablet PO BID PRN (Reason: pain (scale score 7-10)) pantoprazole 40 mg tablet,delayed release (DR/EC) 40 mg PO QAM ondansetron 4 mg tablet,disintegrating 4 mg translingual Q8H PRN (Reason: nausea and vomiting) doxycycline hyclate 100 mg capsule 100 mg PO Q12H 5 Days Qty: 10 0RF Rx Instructions: Take one tablet PO Q12 hours x7 days. Rx started on 02/24/25. Held losartan 100 mg tablet 100 mg PO DAILY Hold Instructions: Resume on 03/07/25. Hold until follow-up with your primary care provider and your kidney function is rechecked losartan 100 mg tablet 100 mg PO DAILY Hold Instructions: Resume on 03/07/25. Discontinued naproxen 500 mg tablet 500 mg PO Q12H azithromycin [Zithromax] 250 mg tablet 250 mg PO DAILY 5 Days Qty: 5 0RF prednisone 20 mg tablet 20 mg PO BID 3 Days Qty: 6 0RF naproxen 500 mg tablet 500 mg PO Q12H Other Ambulatory Orders: Basic Metabolic Panel (Routine) Timeframe: 3 Days Location: Determined by Patient Ordered By: Kelly Dyson Complete Blood Count with Diff (Routine) Timeframe: 3 Days Location: Determined by Patient Ordered By: Kelly Dyson Date of admission: 02/27/25 16:32 Primary Care Provider: JosseGideon Admitting Provider: Amina Worthy Attending physician on admission: Amina Worthy Condition: Stable
== END 2025-03-02 14:18 | disposition home or self-care (01) | DRG 280 ==
LOC: ANHED 23:19 → ANHIMU 02-26 00:40 → ANH2MED 02-27 13:23 → ANHIMU 02-27 14:06 → ANH2MED 03-01 17:19
PROVIDERS: Emergency Medicine; Internal Medicine Cardiovascular Disease; Internal Medicine Interventional Cardiology; Nurse Practitioner Gerontology; Physician Assistant; Admitting Provider Internal Medicine; Emergency Provider Emergency Medicine; Visit Provider Physician Assistant
PROC: 4A023N7 Measurement of Cardiac Sampling and Pressure, Left Heart, Percutaneous Approach (ICD-10-PCS; CPT 93452; principal; 2025-02-28 14:30)
DX: I21.4 Non-ST elevation (NSTEMI) myocardial infarction (principal); E43 Unspecified severe protein-calorie malnutrition; J18.9 Pneumonia, unspecified organism; J90 Pleural effusion, not elsewhere classified; N17.9 Acute kidney failure, unspecified; I50.30 Unspecified diastolic (congestive) heart failure; I48.20 Chronic atrial fibrillation, unspecified; Z68.1 Body mass index [BMI] 19.9 or less, adult; I25.10 Atherosclerotic heart disease of native coronary artery without angina pectoris; I13.10 Hypertensive heart and chronic kidney disease without heart failure, with stage 1 through stage 4 chronic kidney disease, or unspecified chronic kidney disease; I36.1 Nonrheumatic tricuspid (valve) insufficiency; I48.91 Unspecified atrial fibrillation; I25.84 Coronary atherosclerosis due to calcified coronary lesion; J44.9 Chronic obstructive pulmonary disease, unspecified; N18.9 Chronic kidney disease, unspecified; D50.9 Iron deficiency anemia, unspecified; D63.1 Anemia in chronic kidney disease; K21.9 Gastro-esophageal reflux disease without esophagitis; R68.81 Early satiety; R51.9 Headache, unspecified; H54.61 Unqualified visual loss, right eye, normal vision left eye; B88.8 Other specified infestations; F17.210 Nicotine dependence, cigarettes, uncomplicated; Z20.822 Contact with and (suspected) exposure to COVID-19; Z95.1 Presence of aortocoronary bypass graft; Z79.01 Long term (current) use of anticoagulants; Z86.73 Personal history of transient ischemic attack (TIA), and cerebral infarction without residual deficits; Z76.5 Malingerer [conscious simulation]; Z95.0 Presence of cardiac pacemaker; Z95.5 Presence of coronary angioplasty implant and graft
CPT/HCPCS: 36415; 70450; 70481; 71045; 80053; 83690; 84484; 85025; 85610; 85652; 85730; 86140; 87637; 87641; 93005; 93306; 93458; 93880; 94640; 96374; 96375; 97162; 97165; 99285; A9270; C1760; C1887; C1894; G0269; G0378; J0780; J1644; J1885; J2003; J2250; J2270; J2405; J2919; J3010; J7030; J7040; J7512; Q9967

== ENCOUNTER 2025-03-04 19:30 | Emergency (ER) | payer MEDICARE, MEDICAID, SELFPAY ==
--- NOTE | ~2025-03-04 | XR_ITS ---
Examination: XR chest 1V portable Clinical History: Chest Pain Comparison: 02/25/2025 Technique: Portable AP Findings: Left ICD. Heart size upper limit of normal. Persistent retrocardiac opacity and CP angle blunting. No acute bony abnormality. IMPRESSION: 1. Persistent left lower lobe atelectasis and/or airspace disease, with associated effusion. Reviewed, dictated and finalized at location R. IMPRESSION: 1. Persistent left lower lobe atelectasis and/or airspace disease, with associ ated effusion.
[2025-03-04 19:24] VITALS: BP 165/92; PULSE 78; RESP 20; TEMP 36.8; O2SAT 98; O2SAT 99
--- NOTE | 2025-03-04 19:42 | ECG_ITS ---
Test Date: 2025-03-04 19:47:37 Measurements Intervals [place] Rate: 78 P: -37 NE: 117 QRS: 35 QRSD: 102 T: 33 QT: 382 QTc: 437 Interpretive Statements ELECTRONIC ATRIAL PACEMAKER WITH INHIBITION WITH OCCASIONAL VENTRICULAR PREMATURE COMPLEXES POSSIBLE ANTERIOR MYOCARDIAL INFARCTION , OF INDETERMINATE AGE BORDERLINE ST ABNORMALITY- LATERAL LEADS ABNORMAL ECG Compared to ECG 03/02/2025 05:16:17 NO SIGNIFICANT CHANGE Electronically Signed On 03-05-2025 06:54:33 CDT by Dequan Armendariz D.O.
[2025-03-04 20:04] LABS: Hematocrit 31.1 % (37.0-47.0); Hemoglobin 9.3 g/dL (12.0-15.0); Immature Granulocyte Percent A 1.7 % (0-0.5); Lymphocytes Absolute Auto 1.54 K/mm3 (0.9-3.2); Mean Corpuscular HGB Conc 29.9 g/dl (32-36); Mean Corpuscular Hemoglobin 23.7 pg (26-34); Mean Corpuscular Volume 79.3 fl (80-100); Nucleated Red Blood Cells Absolute Auto 0.000 K/mm3 (0.0-0.012); Nucleated Red Blood Cells Perc 0.0 % (0.0-0.2); Platelet Count Result 309 k/mm3 (150-375); Red Blood Count 3.92 M/mm3 (4.2-5.4); White Blood Count 11.4 K/mm3 (4.5-10.0)
[2025-03-04 20:22] LABS: Anisocytosis 1+; Hypochromasia 1+; Microcytosis 1+ (NORMAL); Ovalocytes 1+; Schistocytes None Seen
[2025-03-04] MEDS: NITROGLYCERIN SL 0.4 MG TABLET SUBLINGUAL (20:55)
--- NOTE | 2025-03-04 21:07 | ED.GENADULT ---
HPI - General Adult General Chief complaint: Chest Pain <Nathanael Henry MD - Last Filed: 03/04/25 21:54> Stated complaint: Syncope and CP <Nathanael Henry MD - Last Filed: 03/04/25 21:54> Time Seen by Provider: 03/04/25 19:50 <Nathanael Henry MD - Last Filed: 03/04/25 21:54> History of Present Illness HPI narrative: Patient is a 74-year-old female who presents ER with chest pain. Reports it is occurred twice today. Most recently just prior to arrival. Aching and sharp in the center of her chest. She was just discharged 2 days ago from this facility after having a non ST elevation MN. She underwent cardiac catheterization that showed a large vessel coronary is without obstruction and required no intervention. Patient is well known to the facility. Patient took a medication earlier today that helped her discomfort but she does not know what it was. <Nathanael Henry MD - Last Filed: 03/04/25 21:54> Related Data Home medications: Home Medications ?Medication ?Instructions ?Recorded ?Confirmed ?Last Taken ?Type prednisone 10 mg tablet 5 mg PO DAILY Shortness Of Breath 09/20/20 02/14/25 Unknown History Or Wheezing albuterol sulfate 90 mcg/actuation 90 mcg inhalation QID PRN 08/16/22 02/14/25 Unknown History aerosol inhaler Shortness Of Breath gabapentin 100 mg capsule 100 mg PO DAILY 08/16/22 02/14/25 03/13/24 History losartan 100 mg tablet 100 mg PO DAILY 08/16/22 02/14/25 03/13/24 History Held on 03/02/25. Instructions: Resume on 03/07/25. Hold until follow-up with your primary care provider and your kidney function is rechecked mirtazapine 15 mg tablet 15 mg PO QHS 08/16/22 02/14/25 03/13/24 History nitroglycerin 0.4 mg sublingual 0.4 mg sublingual BID PRN Chest 08/16/22 02/14/25 Unknown History tablet Pain sumatriptan succinate 100 mg tablet 100 mg PO BID PRN Headache 08/16/22 02/14/25 Unknown History aspirin 81 mg tablet,delayed 81 mg PO DAILY 11/25/22 02/14/25 03/13/24 History release nortriptyline 10 mg capsule 10 mg PO HS 08/23/23 02/14/25 03/12/24 History tizanidine 4 mg tablet 4 mg PO QID PRN Back Pain 08/23/23 02/14/25 03/13/24 History trazodone 100 mg tablet 100 mg PO HS 08/23/23 02/14/25 03/13/24 History apixaban 2.5 mg tablet (Eliquis) 2.5 mg PO BID 03/14/24 02/14/25 03/13/24 History oxycodone-acetaminophen 7.5 mg-325 1 tablet PO BID PRN Pain 03/14/24 02/14/25 Unknown History mg tablet albuterol sulfate 90 mcg/actuation 1 inh inhalation QID PRN shortness 02/26/25 02/26/25 Unknown History aerosol inhaler of breath or wheezing apixaban 2.5 mg tablet (Eliquis) 2.5 mg PO BID 02/26/25 02/26/25 02/25/25 10:00 History aspirin 81 mg tablet,delayed 81 mg PO DAILY 02/26/25 02/26/25 02/25/25 10:00 History release (Adult Aspirin Regimen) gabapentin 100 mg capsule 100 mg PO DAILY 02/26/25 02/26/25 02/25/25 10:00 History losartan 100 mg tablet 100 mg PO DAILY 02/26/25 02/26/25 02/25/25 10:00 History Held on 03/02/25. Instructions: Resume on 03/07/25. mirtazapine 15 mg tablet 15 mg PO HS 02/26/25 02/26/25 02/25/25 22:00 History nitroglycerin 0.4 mg sublingual 0.4 mg sublingual Q5M PRN chest 02/26/25 02/26/25 02/26/25 02:45 History tablet pain nortriptyline 10 mg capsule 10 mg PO HS 02/26/25 02/26/25 02/25/25 22:00 History ondansetron 4 mg disintegrating 4 mg translingual Q8H PRN nausea 02/26/25 02/26/25 02/25/25 20:15 History tablet and vomiting oxycodone-acetaminophen 7.5 mg-325 1 tablet PO BID PRN pain (scale 02/26/25 02/26/25 02/25/25 14:00 History mg tablet score 7-10) pantoprazole 40 mg tablet,delayed 40 mg PO QAM 02/26/25 02/26/25 02/25/25 10:00 History release prednisone 5 mg tablet 5 mg PO DAILY 02/26/25 02/26/25 02/25/25 10:00 History sumatriptan succinate 100 mg 100 mg PO BID PRN migraine headache 02/26/25 02/26/25 Unknown History tablet (Imitrex) tizanidine 4 mg tablet 4 mg PO QID PRN muscle spasticity 02/26/25 02/26/25 Unknown History trazodone 100 mg tablet 100 mg PO HS 02/26/25 02/26/25 02/25/25 22:00 History <Nathanael Henry MD - Last Filed: 03/04/25 21:54> Allergies/adverse reactions: Allergies Allergy/AdvReac Type Severity Reaction Status Date / Time amphetamine (From Adderall) Allergy Unknown Unknown Verified 02/28/25 11:19 dextroamphetamine (From Allergy Unknown Unknown Verified 02/28/25 11:19 Adderall) lorazepam Allergy Unknown Agitated Verified 02/28/25 11:19 Penicillins Allergy Unknown Swelling Verified 02/28/25 11:19 of Lip/Tongue/Throat Sulfa (Sulfonamide AdvReac Unknown Nausea Verified 02/28/25 11:19 Antibiotics) <Nathanael Henry MD - Last Filed: 03/04/25 21:54> Review of Systems Review of Systems: All systems reviewed & are unremarkable except as noted in HPI and below <Nathanael Henry MD - Last Filed: 03/04/25 21:54> Constitutional: Constitutional: Reports no additional constitutional complaints <Nathanael Henry MD - Last Filed: 03/04/25 21:54> ENT: Reports system reviewed and no additional complaints, except as documented <Nathanael Henry MD - Last Filed: 03/04/25 21:54> Cardiovascular: Cardiovascular: Reports no additional cardiovascular complaints <Nathanael Henry MD - Last Filed: 03/04/25 21:54> Respiratory: Respiratory: Reports no additional respiratory complaints <Nathanael Henry MD - Last Filed: 03/04/25 21:54> Gastrointestinal: Gastrointestinal: Reports no additional gastrointestinal complaints <Nathanael Henry MD - Last Filed: 03/04/25 21:54> Musculoskeletal: Musculoskeletal: Reports no additional musculoskeletal complaints <Nathanael Henry MD - Last Filed: 03/04/25 21:54> [facility] Past Medical History Medical History: Medical History CKD (chronic kidney disease) stage 3, GFR 30-59 ml/min Carotid stenosis Bladder neoplasm of uncertain malignant potential Malingering Hyperlipidemia Hypertension GI bleed Gastroesophageal reflux disease Cerebrovascular accident Per patient reports, she had 2 or 3 strokes, the last being in April 2019 although not well documented. Chronic obstructive pulmonary disease Coronary artery disease Cerebral atherosclerosis Lupus Patient states she has lupus, not well documented. Fibromyalgia Questionable history of fibromyalgia Anxiety Depression Systemic lupus erythematosus Hyperpituitarism Left foot drop Osteoporosis Bladder cancer Arthritis Renal cancer Gastric ulcer Bronchitis Myocardial infarction Peripheral neuropathy Meningitis Early satiety Chronic iron deficiency anemia <Nathanael Henry MD - Last Filed: 03/04/25 21:54> Surgical History Surgical History: Surgical History History of incision and drainage (06/2022) Right groin abscess. Right groin abscess had been due to perforation of bowel into the incarcerated hernia earlier in the same hospitalization History of resection of small bowel (06/20/22) Small-bowel resection with repair of incarcerated right inguinal hernia. History of bilateral breast reduction surgery History of cardiac defibrillator placement Reportedly for ventricular tachycardia. History of heart artery stent History of hysterectomy History of cholecystectomy History of tonsillectomy History of cardiac catheterization <Nathanael Henry MD - Last Filed: 03/04/25 21:54> Family History Family History: Family History Mother Myocardial infarct Cardiovascular disease Hypertension CHF (congestive heart failure) Father Hypertension Father Hypertension Mother Hypertension Family history of cardiovascular disease <Nathanael Henry MD - Last Filed: 03/04/25 21:54> Social History Social History: Social History Social History: Surrogate medical decision maker: Maxi Carrasquillo, son. Code status: Do not resuscitate. Smoking packs per day: 0.25 Smoking cigarettes per day: 5.0 Years smoked: 49 Smoking pack-years: 12.25 Smoking status: Current every day smoker Tobacco type: cigarettes Second hand tobacco smoke exposure: Yes Alcohol intake: never Substance use: never Substance use type: does not use Do You Feel Safe in your Home?: Yes Lack of Transportation: No Lack of Food: Never True Current Housing: I Have Housing Concerned About Future Housing: No Difficulty Paying Gas/Electric Bills: No Difficulty Paying for Meds: No Currently Unemployed: No Education: High School Diploma/GED Difficulty w/ Childcare or Family Care: No Additional living arrangements comments: with three children. Lives in [place]. 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 Spiritual care concerns: No Agree to blood products: Yes <Nathanael Henry MD - Last Filed: 03/04/25 21:54> Exam Narrative: GENERAL: Chronically ill-appearing, thin, and in no acute distress. HEAD: Normocephalic, atraumatic. bugs in hair. ENT: Mucous membranes moist. NECK: Supple. CHEST: Clear to auscultation. No respiratory distress. HEART: Regular rate and rhythm. Normal peripheral pulses. EXTREMITIES: Normal range of motion. No edema. SKIN: Warm, dry, no rash. NEURO: Alert and oriented x3. PSYCH: Normal mood and affect. <Nathanael Henry MD - Last Filed: 03/04/25 21:54> Course Course Emergency Course: Patient was signed out to me pending repeat troponin. This is stable/flat. Patient is reassessed at bedside. She seems frustrated and reports that she is in pain everywhere and cold and that she had to urinate so badly she had to get herself out of bed and urinated in the sink in the room despite me pointing out that she had a bedside commode in her room. She reports she does not have a electrician shop. Will give her contact information for one as it seems she needs one managing her medication regimen. In the future, Imdur may be considered given she has recurrent chest pain despite clean cardiac catheterization recently. She does have NTG on her med list. However, patient reports that she has none of her medications. I reviewed her discharge summary from recent admission and did prescribe some of her medications in particular cardiac medications although per review of EMR patient had previously reported not taking them because she didn't feel they were needed. Otherwise , stable for discharge. There is a delay in RN being able to contact family member for transportation. Patient had been noted to have bed bugs requiring terminal clean of the ED room she was in. <Tatiana Chaney MD - Last Filed: 03/05/25 09:09> Vital Signs Vital signs: Vital Signs Temperature 98.3 F 03/04/25 19:24 Pulse Rate 78 03/04/25 19:24 Respiratory Rate 20 03/04/25 19:24 Blood Pressure 165/92 H 03/04/25 19:24 Pulse Oximetry 99 03/04/25 19:24 Oxygen Delivery Room Air 03/04/25 19:24 Temperature 98.3 F 03/04/25 19:24 Pulse Rate 77 03/05/25 03:15 Respiratory Rate 18 03/05/25 03:15 Blood Pressure 118/78 03/05/25 03:15 Pulse Oximetry 99 03/05/25 03:15 Oxygen Delivery Room Air 03/04/25 19:24 <Nathanael Henry MD - Last Filed: 03/04/25 21:54> Vital Signs Temperature 98.3 F 03/04/25 19:24 Pulse Rate 78 03/04/25 19:24 Respiratory Rate 20 03/04/25 19:24 Blood Pressure 165/92 H 03/04/25 19:24 Pulse Oximetry 99 03/04/25 19:24 Oxygen Delivery Room Air 03/04/25 19:24 Temperature 98.3 F 03/04/25 19:24 Pulse Rate 77 03/05/25 03:15 Respiratory Rate 18 03/05/25 03:15 Blood Pressure 118/78 03/05/25 03:15 Pulse Oximetry 99 03/05/25 03:15 Oxygen Delivery Room Air 03/04/25 19:24 <Tatiana Chaney MD - Last Filed: 03/05/25 09:09> Medical Decision Making Vital Signs Vital Signs: Vital Signs Temperature 98.3 F 03/04/25 19:24 Pulse Rate 78 03/04/25 19:24 Respiratory Rate 20 03/04/25 19:24 Blood Pressure 165/92 H 03/04/25 19:24 Pulse Oximetry 99 03/04/25 19:24 Oxygen Delivery Room Air 03/04/25 19:24 Temperature 98.3 F 03/04/25 19:24 Pulse Rate 77 03/05/25 03:15 Respiratory Rate 18 03/05/25 03:15 Blood Pressure 118/78 03/05/25 03:15 Pulse Oximetry 99 03/05/25 03:15 Oxygen Delivery Room Air 03/04/25 19:24 <Nathanael Henry MD - Last Filed: 03/04/25 21:54> Vital Signs Temperature 98.3 F 03/04/25 19:24 Pulse Rate 78 03/04/25 19:24 Respiratory Rate 20 03/04/25 19:24 Blood Pressure 165/92 H 03/04/25 19:24 Pulse Oximetry 99 03/04/25 19:24 Oxygen Delivery Room Air 03/04/25 19:24 Temperature 98.3 F 03/04/25 19:24 Pulse Rate 77 03/05/25 03:15 Respiratory Rate 18 03/05/25 03:15 Blood Pressure 118/78 03/05/25 03:15 Pulse Oximetry 99 03/05/25 03:15 Oxygen Delivery Room Air 03/04/25 19:24 <Tatiana Chaney MD - Last Filed: 03/05/25 09:09> Lab Data Result diagrams: 03/04/25 19:57 03/04/25 20:39 <Nathanael Henyr MD - Last Filed: 03/04/25 21:54> Labs: Lab Results 03/04/25 03/04/25 03/04/25 Range/Units 19:57 20:39 22:58 WBC 11.4 H (4.5-10.0) K/mm3 RBC 3.92 L (4.2-5.4) M/mm3 Hgb 9.3 L (12.0-15.0) g/dL Hct 31.1 L (37.0-47.0) % MCV 79.3 L (80-100) fl MCH 23.7 L (26-34) pg MCHC 29.9 L (32-36) g/dl RDW 31.6 H (11.5-14.5) % Plt Count 309 (150-375) k/mm3 MPV 9.7 (7.4-10.4) fl Immature Gran % (Auto) 1.7 H (0-0.5) % Neut % (Auto) 72.7 (45.5-73.1) % Lymph % (Auto) 13.5 L (18.3-44.2) % Keith % (Auto) 10.8 H (2.6-8.5) % Eos % (Auto) 1.0 (0-4.4) % Baso % (Auto) 0.3 (0.2-1.2) % Lymph # (Auto) 1.54 (0.9-3.2) K/mm3 Keith # (Auto) 1.2 H (0.1-0.6) K/mm3 Eos # (Auto) 0.1 (0-0.3) K/mm3 Baso # (Auto) 0.0 (0.0-0.1) K/mm3 Abs Immat Gran (auto) 0.19 H (0.00-0.031) K/mm3 Absolute Neuts (auto) 8.3 H (1.3-6.7) K/mm3 Absolute Nucleated RBC 0.000 (0.0-0.012) K/mm3 Band Neutrophils % Not Reportable Nucleated RBC % 0.0 (0.0-0.2) % Platelet Estimate Adequate (Adequate) Hypochromasia 1+ Anisocytosis 1+ Microcytosis 1+ (NORMAL) Ovalocytes 1+ Schistocytes None seen PT 14.6 (11.1-14.7) Seconds INR 1.1 APTT 22.5 (22.3-36.8) Seconds Sodium 135 L (137-145) mmol/L Potassium 3.9 (3.4-5.0) mmol/L Chloride 107 (98-107) mmol/L Carbon Dioxide 25 (22-30) mmol/L Anion Gap 3 L (4-12) mmol/L BUN 37 H D (7-17) mg/dL Creatinine 0.79 (0.7-1.0) mg/dL Estim Creat Clear Calc 42 ml/min Estimated GFR > 60 (59 - ) Glucose 80 (65-110) mg/dL Calcium 8.0 L (8.4-10.2) mg/dL Total Bilirubin 0.5 (0.2-1.3) mg/dL AST 37 H (14-36) U/L ALT 18 (6-35) U/L Alkaline Phosphatase 100 (38-126) U/L Troponin I 0.012 0.012 (0.000-0.034) ng/mL Total Protein 5.7 L (6.3-8.2) g/dL Albumin 3.0 L (3.5-5.1) g/dL Lipase 244 (23-300) U/L <Nathanael Henry MD - Last Filed: 03/04/25 21:54> Lab Results 03/04/25 03/04/25 03/04/25 Range/Units 19:57 20:39 22:58 WBC 11.4 H (4.5-10.0) K/mm3 RBC 3.92 L (4.2-5.4) M/mm3 Hgb 9.3 L (12.0-15.0) g/dL Hct 31.1 L (37.0-47.0) % MCV 79.3 L (80-100) fl MCH 23.7 L (26-34) pg MCHC 29.9 L (32-36) g/dl RDW 31.6 H (11.5-14.5) % Plt Count 309 (150-375) k/mm3 MPV 9.7 (7.4-10.4) fl Immature Gran % (Auto) 1.7 H (0-0.5) % Neut % (Auto) 72.7 (45.5-73.1) % Lymph % (Auto) 13.5 L (18.3-44.2) % Keith % (Auto) 10.8 H (2.6-8.5) % Eos % (Auto) 1.0 (0-4.4) % Baso % (Auto) 0.3 (0.2-1.2) % Lymph # (Auto) 1.54 (0.9-3.2) K/mm3 Keith # (Auto) 1.2 H (0.1-0.6) K/mm3 Eos # (Auto) 0.1 (0-0.3) K/mm3 Baso # (Auto) 0.0 (0.0-0.1) K/mm3 Abs Immat Gran (auto) 0.19 H (0.00-0.031) K/mm3 Absolute Neuts (auto) 8.3 H (1.3-6.7) K/mm3 Absolute Nucleated RBC 0.000 (0.0-0.012) K/mm3 Band Neutrophils % Not Reportable Nucleated RBC % 0.0 (0.0-0.2) % Platelet Estimate Adequate (Adequate) Hypochromasia 1+ Anisocytosis 1+ Microcytosis 1+ (NORMAL) Ovalocytes 1+ Schistocytes None seen PT 14.6 (11.1-14.7) Seconds INR 1.1 APTT 22.5 (22.3-36.8) Seconds Sodium 135 L (137-145) mmol/L Potassium 3.9 (3.4-5.0) mmol/L Chloride 107 (98-107) mmol/L Carbon Dioxide 25 (22-30) mmol/L Anion Gap 3 L (4-12) mmol/L BUN 37 H D (7-17) mg/dL Creatinine 0.79 (0.7-1.0) mg/dL Estim Creat Clear Calc 42 ml/min Estimated GFR > 60 (59 - ) Glucose 80 (65-110) mg/dL Calcium 8.0 L (8.4-10.2) mg/dL Total Bilirubin 0.5 (0.2-1.3) mg/dL AST 37 H (14-36) U/L ALT 18 (6-35) U/L Alkaline Phosphatase 100 (38-126) U/L Troponin I 0.012 0.012 (0.000-0.034) ng/mL Total Protein 5.7 L (6.3-8.2) g/dL Albumin 3.0 L (3.5-5.1) g/dL Lipase 244 (23-300) U/L <Tatiana Chaney MD - Last Filed: 03/05/25 09:09> Imaging Data Radiologist's impression: ITS Impressions Chest X-Ray 03/04/25 20:52 IMPRESSION: 1. Persistent left lower lobe atelectasis and/or airspace disease, with associated effusion. <Nathanael Henry MD - Last Filed: 03/04/25 21:54> ECG Data EKG #1: ECG completion date: 03/04/25 <Nathanael Henry MD - Last Filed: 03/04/25 21:54> ECG completion time: 19:47 <Nathanael Henry MD - Last Filed: 03/04/25 21:54> EKG Interpretation: normal rate, sinus rhythm, PVCs, non-specific ST changes, other (atria paced) and no acute changes <Nathanael Henry MD - Last Filed: 03/04/25 21:54> Discharge Plan Discharge Clinical Impression: Encounter for medication refill Chest pain Qualifiers: Chest pain type: chest pain on breathing Qualified Code(s): R07.1 - Chest pain on breathing <Nathanael Henry MD - Last Filed: 03/04/25 21:54> Patient Disposition: Home <Nathanael Henry MD - Last Filed: 03/04/25 21:54> Condition: Stable <Nathanael Henry MD - Last Filed: 03/04/25 21:54> Instructions: Antibiotic Form, Chest Pain (ED) <Nathanael Henry MD - Last Filed: 03/04/25 21:54> Additional Instructions: The name of a electrician shop is listed below for follow-up since you do not have 1. Also follow up with your primary care physician. If you do not have 1 the name of the doctors listed below. You stated that you are out of your medications. Some of them have been refilled until you can see your PCP. <Nathanael Henry MD - Last Filed: 03/04/25 21:54> Patient Language: Portuguese <Nathanael Henry MD - Last Filed: 03/04/25 21:54> Prescriptions: New losartan [Cozaar] 100 mg tablet 100 mg PO DAILY Qty: 14 0RF aspirin [Adult Aspirin Regimen] 81 mg tablet,delayed release (DR/EC) 81 mg PO DAILY Qty: 30 0RF nitroglycerin 0.4 mg tablet, sublingual 0.4 mg sublingual BID PRN (Reason: chest pain) Qty: 30 0RF Rx Instructions: as a single dose; administer 5-10 minutes before situation known to precipitate angina attack Eliquis 2.5 mg tablet 2.5 mg PO BID Qty: 30 0RF atorvastatin [Lipitor] 20 mg tablet 20 mg PO DAILY Qty: 30 0RF No Action sumatriptan succinate 100 mg tablet 100 mg PO BID PRN (Reason: Headache) nitroglycerin 0.4 mg tablet, sublingual 0.4 mg sublingual BID PRN (Reason: Chest Pain) mirtazapine 15 mg tablet 15 mg PO QHS gabapentin 100 mg capsule 100 mg PO DAILY albuterol sulfate 90 mcg/actuation HFA aerosol inhaler 90 mcg inhalation QID PRN (Reason: Shortness Of Breath) losartan 100 mg tablet 100 mg PO DAILY prednisone 10 mg tablet 5 mg PO DAILY Rx Instructions: 1/2 Tab every day aspirin 81 mg Tablet,Delayed Release (Dr/Ec) 81 mg PO DAILY tizanidine 4 mg tablet 4 mg PO QID PRN (Reason: Back Pain) nortriptyline 10 mg capsule 10 mg PO HS trazodone 100 mg tablet 100 mg PO HS Eliquis 2.5 mg tablet 2.5 mg PO BID oxycodone-acetaminophen 7.5-325 mg tablet 1 tablet PO BID PRN (Reason: Pain) pantoprazole 40 mg Tablet,Delayed Release (Dr/Ec) 40 mg PO QAM Qty: 15 0RF ondansetron 4 mg tablet,disintegrating 4 mg PO Q8H PRN (Reason: nausea and vomiting) Qty: 14 0RF sumatriptan succinate [Imitrex] 100 mg tablet 100 mg PO BID PRN (Reason: migraine headache) nitroglycerin 0.4 mg tablet, sublingual 0.4 mg sublingual Q5M PRN (Reason: chest pain) Rx Instructions: do not exceed 3 doses per episode mirtazapine 15 mg tablet 15 mg PO HS gabapentin 100 mg capsule 100 mg PO DAILY albuterol sulfate 90 mcg/actuation HFA aerosol inhaler 1 inh inhalation QID PRN (Reason: shortness of breath or wheezing) losartan 100 mg tablet 100 mg PO DAILY prednisone 5 mg tablet 5 mg PO DAILY aspirin [Adult Aspirin Regimen] 81 mg tablet,delayed release (DR/EC) 81 mg PO DAILY tizanidine 4 mg tablet 4 mg PO QID PRN (Reason: muscle spasticity) Rx Instructions: PRN muscle spasms/back pain. nortriptyline 10 mg capsule 10 mg PO HS trazodone 100 mg tablet 100 mg PO HS Eliquis 2.5 mg tablet 2.5 mg PO BID oxycodone-acetaminophen 7.5-325 mg tablet 1 tablet PO BID PRN (Reason: pain (scale score 7-10)) pantoprazole 40 mg tablet,delayed release (DR/EC) 40 mg PO QAM ondansetron 4 mg tablet,disintegrating 4 mg translingual Q8H PRN (Reason: nausea and vomiting) levofloxacin 500 mg Tablet 500 mg PO Q48HR 1 Days Qty: 1 0RF Rx Instructions: Take 03/04/25 doxycycline hyclate 100 mg capsule 100 mg PO Q12H 5 Days Qty: 10 0RF Rx Instructions: Take one tablet PO Q12 hours x7 days. Rx started on 02/24/25. atorvastatin [Lipitor] 20 mg tablet 20 mg PO DAILY Qty: 30 0RF <Nathanael Henry MD - Last Filed: 03/04/25 21:54> Follow-up/Referrals: Josse,Gideon [Other] Dequan Armendariz DO [Physician, Cardiology] Andres Patton MD [Physician, Family Practice] <Nathanael Henry MD - Last Filed: 03/04/25 21:54> Time of Disposition: 00:15 <Nathanael Henry MD - Last Filed: 03/04/25 21:54> 00:15 <Tatiana Chaney MD - Last Filed: 03/05/25 09:09>
[2025-03-04 21:08] LABS: Alanine Aminotransferase 18 U/L (6-35); Albumin Level 3.0 g/dL (3.5-5.1); Alkaline Phosphatase 100 U/L (38-126); Anion Gap 3 mmol/L (4-12); Aspartate Amino Transferase 37 U/L (14-36); Bilirubin,Total 0.5 mg/dL (0.2-1.3); Blood Urea Nitrogen 37 mg/dL (7-17); Calcium 8.0 mg/dL (8.4-10.2); Carbon Dioxide 25 mmol/L (22-30); Chloride 107 mmol/L (98-107); Estimated CRCL calculation 42 ml/min; Estimated Glomerular Filt Rate > 60; Glucose 80 mg/dL (65-110); Lipase 244 U/L (23-300); Potassium 3.9 mmol/L (3.4-5.0); Sodium 135 mmol/L (137-145); Total Protein 5.7 g/dL (6.3-8.2)
[2025-03-04 21:09] LABS: Troponin I 0.012 ng/mL (0.000-0.034)
[2025-03-04 21:13] LABS: INR 1.1; Prothrombin Time 14.6 Seconds (11.1-14.7)
[2025-03-04 21:14] LABS: Partial Thromboplastin Time 22.5 Seconds (22.3-36.8)
[2025-03-04] MEDS: BELLADONNA ALK/PHENOB ELIX 10 ML, MAG HYDROX/ALUMINUM HYD/SIMETH 30 ML, LIDOCAINE 2% VI... PO (21:49)
--- NOTE | 2025-03-04 22:30 | ECG_ITS ---
Test Date: 2025-03-04 22:50:01 Measurements Intervals [place] Rate: 72 P: 90 OK: 133 QRS: 237 QRSD: 110 T: 167 QT: 389 QTc: 426 Interpretive Statements SIGNIFICANT BASELINE ARTIFACT ELECTRONIC ATRIAL PACEMAKER WITH VENTRICULAR PREMATURE COMPLEXES CONSIDER ANTERIOR INFARCT, AGE INDETERMINATE BASELINE ARTIFACT- I, II, AVR, AVL, AVF, V1-V6 ABNORMAL ECG Compared to ECG 03/04/2025 19:47:37 NO SIGNIFICANT CHANGE Electronically Signed On 03-05-2025 06:57:54 CDT by Dequan Armendariz D.O.
[2025-03-04 23:28] LABS: Troponin I 0.012 ng/mL (0.000-0.034)
[2025-03-05 03:15] VITALS: BP 118/78; PULSE 77; RESP 18; O2SAT 99
== END 2025-03-05 03:15 | disposition home or self-care (01) ==
PROVIDERS: Emergency Provider Student in an Organized Health Care Education/Training Program
DX: R07.1 Chest pain on breathing (principal); Z76.0 Encounter for issue of repeat prescription; I25.2 Old myocardial infarction; I12.9 Hypertensive chronic kidney disease with stage 1 through stage 4 chronic kidney disease, or unspecified chronic kidney disease; N18.30 Chronic kidney disease, stage 3 unspecified; I65.29 Occlusion and stenosis of unspecified carotid artery; I67.2 Cerebral atherosclerosis; E78.5 Hyperlipidemia, unspecified; J44.9 Chronic obstructive pulmonary disease, unspecified; D50.9 Iron deficiency anemia, unspecified; G62.9 Polyneuropathy, unspecified; M81.0 Age-related osteoporosis without current pathological fracture; M19.90 Unspecified osteoarthritis, unspecified site; K21.9 Gastro-esophageal reflux disease without esophagitis; F41.9 Anxiety disorder, unspecified; F32.A Depression, unspecified; F17.210 Nicotine dependence, cigarettes, uncomplicated; Z66 Do not resuscitate; Z95.0 Presence of cardiac pacemaker; Z95.5 Presence of coronary angioplasty implant and graft; Z85.528 Personal history of other malignant neoplasm of kidney; Z85.51 Personal history of malignant neoplasm of bladder; Z90.49 Acquired absence of other specified parts of digestive tract; Z90.710 Acquired absence of both cervix and uterus; I49.3 Ventricular premature depolarization; R94.31 Abnormal electrocardiogram [ECG] [EKG]
CPT/HCPCS: 36415; 71045; 80053; 83690; 84484; 85025; 85610; 85730; 93005; 99284; A9270

== ENCOUNTER 2025-03-05 13:31 | Emergency (ER) | payer MEDICARE, MEDICAID, SELFPAY ==
--- NOTE | 2025-03-05 13:37 | ECG_ITS ---
Test Date: 2025-03-05 13:42:02 Measurements Intervals [place] Rate: 92 P: -40 NM: 124 QRS: -30 QRSD: 98 T: 69 QT: 378 QTc: 469 Interpretive Statements SINUS OR ECTOPIC ATRIAL RHYTHM LEFT VENTRICULAR HYPERTROPHY WITH ST-T CHANGE NONSPECIFIC ST & T-WAVE ABNORMALITY- HIGH LATERAL LEADS BASELINE ARTIFACT- III, AVL, AVF, V1, V3-V4 BORDERLINE ECG Compared to ECG 03/04/2025 22:50:01 Atrial-paced complex(es) or rhythm no longer present Electronically Signed On 03-05-2025 14:28:20 CDT by Dequan Armendariz D.O.
[2025-03-05 14:02] VITALS: BP 137/89; PULSE 86; RESP 17; TEMP 37.8; O2SAT 96
[2025-03-05 14:05] LABS: Hematocrit 31.2 % (37.0-47.0); Hemoglobin 9.4 g/dL (12.0-15.0); Immature Granulocyte Percent A 1.0 % (0-0.5); Lymphocytes Absolute Auto 1.43 K/mm3 (0.9-3.2); Mean Corpuscular HGB Conc 30.1 g/dl (32-36); Mean Corpuscular Hemoglobin 23.7 pg (26-34); Mean Corpuscular Volume 78.8 fl (80-100); Nucleated Red Blood Cells Absolute Auto 0.000 K/mm3 (0.0-0.012); Nucleated Red Blood Cells Perc 0.0 % (0.0-0.2); Platelet Count Result 274 k/mm3 (150-375); Red Blood Count 3.96 M/mm3 (4.2-5.4); White Blood Count 10.5 K/mm3 (4.5-10.0)
--- OUTSIDE RECORDS SUMMARY | 2025-03-05 14:11 | XMS_ITS | Data Portability ---
Author Organization [facility] DEMETRIOMere Jennings Address [address] [place] [address] Assessment Encounter Date Assessment Date Assessment LastModified by Organization Details LastModified Time 08/08/2022 08/08/2022 Records from [facility] from last hospital visit. Also any GI procedures. Will have nurse assist with ordering medical equipment. [email or web address] Not available 08/08/2022 11:24:45 Plan of Treatment Reminders Order Date Submit Date Provider Last Modified By Organization Details Last Modified Time Details Appointments None recorded. Lab urinalysi s complete, reflex culture 2023 024 dmilesma [facility], [address], [address], [place], [address], 4 10:18:23 CBC 2023 024 dmilesma [facility], [address], [address], [place], [address], 4 10:18:24 CMP, serum or plasma 2023 024 dmilesma [facility], [address], [address], [place], [address], 4 10:18:24 TSH, ultra-sen sitive, serum 2023 024 dmilesma [facility], [address], [address], [place], [address], 4 10:18:24 BASSAM (antinucl ear antibodie s) screen, serum 2023 024 [facility], [address], [address], [place], [address], 4 10:18:24 ESR (erythroc yte sedimenta tion rate), blood [facility], [address], [address], [place], [address], 4 10:18:24 Referral pain managemen t referral - history of opioid use, history of Lupus, 2022 023 wood Gil MD, [address], [place], [address], 3 10:55:23 gastroent erologist referral - Nausea , cannot keep food down . weight down to 95 pounds . Please eval and treat . Thank you . 2021 023 wood More MD, [address], [address], [place], [address], 3 16:44:18 cardiolog ist referral - Pacemaker has moved under arm very painful , having chest pains , pacemaker may not be working . PLease eval and treat. Thank you 2021 022 anastacio Cotton MD, [address], [address], [place], [address], 2 15:19:33 Procedures None recorded. Surgeries None recorded. Imaging CT, abdomen + pelvis, w/o contrast 2023 024 [facility] ([facility]), [address], [place], [address], 4 10:49:32 XR, chest, 3 view 2023 024 [facility] ([facility]), [address] [place], [address], 4 10:49:33 DEXA 2021 022 [facility] ([facility]), [address] [place], [address], 2 09:50:29 Medication Orders pantopraz ole 40 mg tablet,de layed release 2023 024 [id number], [address], [place], [address], 4 11:12:12 Eliquis 2.5 mg tablet 2023 024 [id number], [address] [place], [address], 4 11:12:12 Advair Diskus 250 mcg-50 mcg/dose powder for inhalatio n 2023 024 [id number], [address], [place], [address], 4 11:12:11 Ventolin HFA 90 mcg/actua tion aerosol inhaler 2023 024 [facility] #[id number], [address], [place], [address], 4 11:12:12 losartan 100 mg tablet 2023 024 [facility] #[id number], [address], [place], [address], 4 11:12:10 duloxetin e 30 mg capsule,d elayed release 2023 024 [facility] #[id number], [address] , [place], [address], 4 11:12:05 gabapenti n 300 mg capsule 2023 024 [facility] #[id number], [address] , [place], [address], 4 11:12:12 gabapenti n 100 mg capsule 2022 023 [facility], [address] [place] [address], [id number], 4 10:59:30 Cymbalta 30 mg capsule,d elayed release 2022 023 [facility], [address] [place] [address], [id number], 4 10:58:59 Advair Diskus 250 mcg-50 mcg/dose powder for inhalatio n 2022 023 [facility], [address] [place] [address], [id number], 3 13:31:19 Ventolin HFA 90 mcg/actua tion aerosol inhaler 2022 023 [facility], [address] [place] [address], [id number], 3 13:31:20 hydrocodo ne 7.5 mg-acetam inophen 325 mg tablet 2021 022 [facility], [address] [place] [address], [id number], 4 11:04:40 methocarb aaliyah 500 mg tablet 2021 022 [facility], [address] [place] [address], [id number], 3 18:01:13 clonazepa m 0.5 mg tablet 2021 022 [facility], [address] [place] [address], [id number], 4 10:58:38 ondansetr on 4 mg disintegr ating tablet 2021 022 [facility], [address] [place] [address], [id number], 4 11:00:48 famotidin e 20 mg tablet 2021 022 CARON [facility], [address] [place] [address], [id number], 2 10:21:21 aripipraz ole 2 mg tablet 2021 022 jhonny [facility], [address] [place] [address], [id number], 2 12:40:22 docusate sodium 100 mg capsule 2021 022 [facility], [address] [place] [address], [id number], 4 10:58:52 Linzess 145 mcg capsule 2021 022 [facility], [address] [place] [address], [id number], 4 11:05:35 sucralfat e 1 gram tablet 2021 022 [facility], [address] [place] [address], [id number], 4 11:00:13 Patient TargetsNo targets recorded. Patient Instructions Encounter Date Encounter Id Patient Instructions Last Modified By Organization Details Last Modified Time 10/22/2021 [id number] she will get BP rechecked Not available 10/26/2021 23:24:38 12/19/2021 [id number] home health order* - needs an increase in hours. from 4 hours a day to 5 hours per day please . Thank you [email or web address] Not available 12/21/2021 09:55:20 Reason for Referral Assistant Center Manager Referral for Di sorder of cardiac pacemaker system Pacemaker has moved under arm very painful , having chest pains , pacemaker may not be working . PLease eval and treat. Thank you Referring Physician: Wesley Loaiza [facility], Encounter Date: 12/19/2021 [employer] Referral for Nausea Nausea , cannot keep food down . weight down to 95 pounds . Please eval and treat . Thank you . Referring Physician: Wesley Loaiza [facility], Encounter Date: 12/19/2021 Pain Management Referral for Chronic pain history of opioid use, history of Lupus, Referring Physician: Ashley Sepulveda [facility], Encounter Date: 08/08/2022 Results Created Date Observation Date Name Description Value Unit Range Abnormal Flag Note LastModifiedBy Organization Detail LastModifiedTime 10/03/19 22 10/02/2021 XR, chest , 2 view No observ ation record ed. [address], [address], 11/02/2021 09:40:51 10/13/19 22 10/12/2021 XR, chest , 2 view No observ ation record ed. [address], [address], 11/02/2021 14:57:29 10/13/19 22 10/12/2021 CT, abdom en + pelvi s, w/ contr ast No observ ation record ed. [address], [address], 11/02/2021 14:57:18 10/25/19 22 10/24/2021 XR, chest No observ ation record ed. [address], [address], 11/02/2021 14:57:26 10/26/19 22 10/24/2021 CT, abdom en + pelvi s, w/ contr ast No observ ation record ed. [address], [place], [address], 11/02/2021 14:57:23 12/11/19 22 12/10/2021 XR, chest , 2 view No observ ation record ed. [address], [place], [address], 12/21/2021 10:47:39 12/11/19 22 12/10/2021 CT, angio gram, chest , w/ contr ast No observ ation record ed. [address], [place], [address], 12/21/2021 10:40:55 01/19/20 22 01/18/2022 XR, chest , 2 view No observ ation record ed. [address], [place], [address], 01/31/2022 16:14:02 03/20/20 22 03/20/2022 XR, chest No observ ation record ed. [address] [facility] [address] [place], [address], 03/20/2022 12:24:05 03/31/20 22 03/31/2022 XR, chest , 2 view No observ ation record ed. [address], [place], [address], 03/31/2022 21:07:05 04/02/20 22 04/02/2022 US, doppl er echoc ardio gram No observ ation record ed. [address], [place], [address], 04/03/2022 10:57:36 04/02/20 22 04/02/2022 XR, chest No observ ation record ed. [address] [facility], [place], [address], 04/03/2022 10:57:36 04/06/20 22 04/06/2022 XR, chest No observ ation record ed. [address] [facility], [place], [address], 04/08/2022 10:02:22 04/06/20 22 04/06/2022 CT, angio gram, chest , w/ contr ast No observ ation record ed. [address] [address], [place], [address], 04/08/2022 10:03:54 04/06/20 22 04/06/2022 CT, brain , w/o contr ast No observ ation record ed. [address] [facility], [place], [address], 04/08/2022 10:03:54 04/08/20 22 04/06/2022 CT, angio gram, chest , w/ contr ast No observ ation record ed. [address] [facility] [place], [address], 04/09/2022 17:14:03 06/20/19 23 06/20/2022 CT, abdom en, w/o contr ast No observ ation record ed. [address] [facility], [place], [address], 06/26/2022 17:25:15 06/20/19 23 06/20/2022 XR, abdom en No observ ation record ed. [address], [place], [address], 06/26/2022 17:26:02 06/21/19 23 06/21/2022 XR, chest No observ ation record ed. [address] [address], [place], [address], 06/27/2022 10:40:08 06/22/19 23 06/22/2022 CT, abdom en + pelvi s, w/ contr ast No observ ation record ed. [address] [address], [place], [address], 06/27/2022 10:40:08 06/27/19 23 06/27/2022 XR, abdom en No observ ation record ed. [address] [address], [place], [address], 07/01/2022 16:55:37 06/27/19 23 06/27/2022 imagi ng/di agnos tic resul t No observ ation record ed. [address] [address], [place], [address], 07/01/2022 16:46:32 06/28/19 23 06/28/2022 XR, abdom en No observ ation record ed. [address] [address], [place], [address], 07/01/2022 16:55:38 06/28/19 23 06/28/2022 imagi ng/di agnos tic resul t No observ ation record ed. [address] [address], [place], [address], 07/01/2022 16:54:11 06/28/19 23 06/28/2022 imagi ng/di agnos tic resul t No observ ation record ed. [address] [address], [place], [address], 07/01/2022 16:54:46 06/28/19 23 06/28/2022 US, abdom en No observ ation record ed. [address] [address], [place], [address], 07/01/2022 16:55:15 06/28/19 23 06/28/2022 US, duple x, venou s, lower extre mity No observ ation record ed. [address], [place], [address], 07/01/2022 16:55:38 06/29/19 23 06/29/2022 XR, chest No observ ation record ed. [address], [place], [address], 07/01/2022 16:55:39 07/01/19 23 07/01/2022 CT, brain , w/o contr ast No observ ation record ed. [address], [place], [address], 07/01/2022 16:55:39 07/04/19 23 07/04/2022 XR, chest No observ ation record ed. [address], [place], [address], 07/05/2022 17:10:19 07/04/19 23 07/04/2022 XR, chest No observ ation record ed. [address], [place], [address], 07/05/2022 17:10:20 08/21/19 23 08/15/2022 CT, abdom en + pelvi s, w/ contr ast No observ ation record ed. [email or web address] [place], [address], 08/20/2022 10:32:05 08/21/19 23 08/15/2022 CT, abdom en + pelvi s, w/ contr ast No observ ation record ed. [facility] [address] [place], [address], 08/21/2022 09:01:30 11/25/19 23 11/24/2022 CT, angio gram, chest + abdom en + pelvi s, w/ contr ast No observ ation record ed. [address], [place], [address], 11/27/2022 09:30:08 11/26/19 23 11/25/2022 nucle ar stres s test No observ ation record ed. [address], [place], [address], 11/26/2022 16:39:21 11/26/19 23 11/25/2022 XR, abdom en No observ ation record ed. [address], [place], [address], 11/26/2022 16:39:46 11/26/19 23 11/24/2022 exerc ise stres s test No observ ation record ed. [address], [place], [address], 11/26/2022 16:40:07 11/28/19 23 11/24/2022 CT, angio gram, chest + abdom en + pelvi s, w/ contr ast No observ ation record ed. [address], [place], [address], 11/28/2022 09:11:49 04/03/20 23 04/02/2023 XR, chest No observ ation record ed. [address], [place], [address], 04/03/2023 11:25:27 05/20/20 23 05/20/2023 XR, chest No observ ation record ed. [address], [place], [address], 05/22/2023 10:25:26 05/20/20 23 05/20/2023 CT, angio gram, chest , w/ contr ast No observ ation record ed. [address], [place], [address], 05/22/2023 10:25:27 07/06/19 24 07/06/2023 XR, chest No observ ation record ed. [address] [address], [place], [address], 07/09/2023 09:43:25 08/23/19 24 08/23/2023 XR, ribs, unila teral No observ ation record ed. [address] [address], [place], [address], 08/25/2023 16:28:29 08/23/19 24 08/23/2023 CT, angio gram, chest , w/ contr ast No observ ation record ed. [address] [address], [place], [address], 08/25/2023 16:28:30 11/10/19 24 11/10/2023 XR, chest , 2 view No observ ation record ed. [address] [address], [place], [address], 11/10/2023 17:37:27 11/10/19 24 11/10/2023 CT, chest + abdom en + pelvi s, w/ contr ast No observ ation record ed. [address] [address], [place], [address], 11/11/2023 10:39:22 11/28/19 24 11/28/2023 CT, head, w/o contr ast No observ ation record ed. [address], [place], [address], 12/03/2023 16:58:47 11/28/19 24 11/28/2023 XR, chest No observ ation record ed. [address], [place], [address], 12/03/2023 16:59:01 11/28/19 24 11/28/2023 CT, cervi ilana spine , w/o contr ast No observ ation record ed. [address], [place], [address], 12/03/2023 16:59:46 11/28/19 24 11/28/2023 CT, thora cic spine , w/wo contr ast No observ ation record ed. [address] [address], [place], [address], 12/03/2023 17:00:08 03/13/20 24 03/13/2024 XR, chest , 2 view No observ ation record ed. [address] [address], [place], [address], 03/24/2024 12:56:10 03/13/20 24 03/13/2024 CT, angio gram, chest + abdom en + pelvi s, w/ contr ast No observ ation record ed. [address] [address], [place], [address], 03/24/2024 12:56:10 03/05/20 25 03/04/2025 imagi ng/di agnos tic resul t No observ ation record ed. [address] [address], [place], [address], 03/05/2025 09:14:42 Result Notes None recorded. Problems Name Problem SNOMED Code Status Onset Date Resolution Date Notes Provider Name and Address Organization Details Recorded Time Old myocardial infarction 6612440 Active 2015 Not Available [facility] 2 02:06:26 Hypertensi ve disorder 56968947 Active 2015 Not Available [facility] 2 02:06:26 Ex-smoker 2302503 Active 2015 Not Available [facility] 2 02:06:26 Coronary arterioscl erosis in [place] artery 0606064001335 Active 2015 Not Available [facility] 2 02:06:26 Stented coronary artery 661493799 Active 2015 Not Available [facility] 2 02:06:26 History of cerebrovas cular accident 365637480 Active 2015 Not Available [facility] 2 02:06:27 Fatigue 81562188 Active 2015 Not Available [facility] 2 02:06:27 Hyperchole sterolemia 32991634 Active 2015 Not Available [facility] 2 02:06:27 Angina pectoris 251436521 Active 2015 Not Available [facility] 2 02:06:27 Lupus erythemato kalee 617404333 Active 2018 Not Available [facility] 2 02:06:26 Essential hypertensi on 45265443 Active 2018 Not Available [facility] 2 02:06:26 Atrial fibrillati on 53567441 Active 2018 Not Available [facility] 2 02:06:27 Combinatio n internal cardiac defibrilla tor and pacemaker in situ 019556766 Active 2018 Not Available [facility] 2 02:06:27 Migraine 22041060 Active 2018 Not Available [facility] 2 02:06:27 Systemic lupus erythemato kalee 00288979 Active 2018 Not Available [facility] 2 02:06:26 Cerebrovas cular accident 297868413 Active 2018 right brain cva .... Not Available [facility] 2 02:06:27 Injury of head 52559772 Active 2018 Not Available [facility] 2 02:06:26 Insomnia 643301875 Active 2018 Not Available [facility] 2 02:06:27 Depressive disorder 83978626 Active 2018 Not Available [facility] 2 02:06:26 Urinary incontinen ce 428543336 Active 2018 Not Available [facility] 2 02:06:27 Dysuria 30396219 Active 2018 Not Available [facility] 2 02:06:26 Hyperparat hyroidism 03779931 Active 2018 Not Available [facility] 2 02:06:26 Chronic obstructiv e pulmonary disease 35963113 Active 2018 Not Available [facility] 2 02:06:27 Congestive heart failure 34209861 Active 2018 Not Available [facility] 2 02:06:27 Hyperlipid emia 21879697 Active 2018 Not Available [facility] 2 02:06:27 Gastroesop hageal reflux disease 676485747 Active 2018 Not Available [facility] 2 02:06:27 Not for resuscitat ion 118610758 Active 2018 Not Available [facility] 2 02:06:26 Diverticul itis 026198402 Active 2019 Not Available [facility] 2 02:06:26 Anxiety 98105507 Active 2019 Not Available [facility] 2 02:06:27 Fibromyalg ia 574860896 Active 2019 Not Available [facility] 2 02:06:27 Hypokalemi a 12359472 Active 2019 Not Available [facility] 2 02:06:27 Multiple benign melanocyti c nevi 594712980 Active 2020 on her back Not Available [facility] 2 02:06:26 Degenerati on of cervical interverte bral disc 52423925 Active 2020 Not Available [facility] 2 02:06:26 Acute bronchitis 58278726 Active 2020 Not Available [facility] 2 02:06:26 Lesion of urinary bladder 189764329 Active 2020 Not Available [facility] 2 02:06:26 CT of abdomen abnormal 3016742852379 9107 Active 2020 Not Available [facility] 2 02:06:26 Liver enzymes level above reference range 833566280 Active 2020 Not Available [facility] 2 02:06:26 Serum creatinine above reference range 030297930 Active 2020 Not Available [facility] 2 02:06:26 Chronic idiopathic constipati on 31817075 Active 2021 Not Available [facility] 2 02:06:26 Disorder of cardiac pacemaker system 102635297 Active 2021 Not Available [facility] 2 02:06:26 Menopause Active 2021 Not Available [facility] 2 02:06:26 Notes:Some problems listed i n Document: #[id number] could not be added to this patient's chart. Please review this document and add these problems to the patient's chart manually as needed. Problem Notes None recorded. Procedures Surgical History Date Name Laterality Status Provider Name and Address Organization Details Recorded Time Cholecystectomy completed Joni Morataya MA [facility] 06/17/2018 12:02:49 Total hysterectomy completed Joni Morataya MA [facility] 06/17/2018 12:02:57 Pacemaker completed Joni Morataya MA [facility] 06/17/2018 12:03:05 Defibrillator completed Joni Morataya MA [facility] 06/17/2018 12:04:24 Appendectomy completed Joni Morataya MA [facility] 06/17/2018 12:04:54 Angioplasty With Stent completed Joni Morataya MA [facility] 06/17/2018 12:05:17 Hernia Repair completed Sarai Hart MA [facility] 08/08/2022 10:35:59 Imaging Results None recorded. Procedure Notes None recorded. Medical Equipment None Reported. Allergies Allergen ID Allergen Name Allergen Category Reaction Reaction Severity Criticality Documentation Date Start Date Code Code System Note Provider Name and Address Organization Details Recorded Time 646738 Product containin g penicilli n (product) medicatio n Not available Not available Not available 06/17/2018 58303 8001 SNOMED ROXANNE Mckinley, [facility] 9 11:57:17 343110 Substance with sulfonami de structure and antibacte rial mechanism of action (substanc e) medicatio n Not available Not available Not available 06/17/2018 76733 8003 SNOMED Joni ROXANNE Morataya null, [place] [facility] 9 11:57:26 402858 lorazepam medicatio n Not available Not available Not available 05/04/2021 6470 RxNorm Other react ions and sever ities : 'Anxi ety - Mild' . Elva Hampton MA null, [facility] 14:50:33 Medications Name Sig Start Date Stop Date Status Note LastModified by Organization Details LastModified Time losartan 50 mg tablet 10/07 completed Not Available Not Available Not Available cyclobenz aprine 10 mg tablet TAKE 1/2 TO 1 TABLET BY MOUTH TWICE DAILY 01/27 completed Not Available Not Available Not Available fluconazo le 100 mg tablet 08/28 completed Not Available Not Available Not Available atorvasta tin 40 mg tablet Take 1 tablet every day by oral route in the morning for 30 days. 06/13 completed Not Available Not Available Not Available methocarb aaliyah 500 mg tablet TAKE ONE TABLET BY MOUTH FOUR TIMES DAILY NEEDED FOR MUSCLE SPASMS 08/28 completed Not Available Not Available Not Available promethaz ine-DM 6.25 mg-15 mg/5 mL oral syrup Take 5 mL every 6 hours by oral route for 10 days. 10/07 completed Not Available Not Available Not Available fluticaso ne 250 mcg-salme terol 50 mcg/dose blistr powdr for inhalatio n INHALE 1 PUFF BY MOUTH TWICE A DAY active Not Available Not Available No t Available carvedilo l 25 mg tablet Take 1 tablet twice a day by oral route for 30 days. 06/13 completed Not Available Not Available Not Available clonidine HCl 0.1 mg tablet TAKE 1 TABLET BY MOUTH TWO TIMES DAILY ( FOR BLOOD PRESSURE ) 08/28 completed Not Available Not Available Not Available prednison e 10 mg tablet TAKE 1 TABLET BY MOUTH EVERY DAY IN THE MORNING 01/27 completed Not Available Not Available Not Available gabapenti n 600 mg tablet 01/27 completed Not Available Not Available Not Available doxycycli ne hyclate 100 mg capsule 06/17 completed Not Available Not Available Not Available Gaviscon Extra Strength 160 mg-105 mg chewable tablet Take 1 tablet 3 times a day by oral route as needed for 10 days. 06/13 completed Not Available Not Available Not Available naproxen 375 mg tablet TAKE 1 TABLET BY MOUTH TWICE DAILY 05/04 completed Not Available Not Available Not Available albuterol sulfate 2.5 mg/3 mL (0.083 %) solution for nebulizat ion INHALE 3 ML BY NEBULIZA TION 3 TIMES A DAY 01/27 completed Not Available Not Available Not Available trazodone 50 mg tablet Take 1 tablet every day by oral route at bedtime for 30 days. 10/07 completed switched to mirtazap ine Not Available Not Available Not Available azithromy arvin 250 mg tablet 05/04 completed Not Available Not Available Not Available nifedipin e ER 90 mg tablet,ex tended release 10/07 completed Not Available Not Available Not Available tizanidin e 4 mg tablet TAKE 1 TABLET BY MOUTH 4 TIMES DAILY NEEDED 01/27 completed Not Available Not Available Not Available sumatript an 100 mg tablet TAKE ONE TABLET BY MOUTH AT ONSET OF HEADACHE MAY REPEAT IN TWO HOURS NOT TO EXCEED TWO TABLETS IN 24 HOURS 01/27 completed Not Available Not Available Not Available hydrocodo ne 5 mg-acetam inophen 325 mg tablet TAKE 1 TO 2 TABLETS BY MOUTH EVERY 8 HOURS NEEDED FOR PAIN 01/25 completed Not Available Not Available Not Available senna 8.6 mg tablet TAKE 1 TABLET BY MOUTH TWICE DAILY FOR CONSTIPA TION 08/28 completed Not Available Not Available Not Available sucralfat e 1 gram tablet TAKE ONE TABLET BY MOUTH FOUR TIMES DAILY 01/27 completed Not Available Not Available Not Available ondansetr on HCl 4 mg tablet take ONE tablet ON THE TONGUE EVERY 6 HOURS NEEDED FOR NAUSEA OR FOR VOMITING 08/28 completed Not Available Not Available Not Available prednison e 20 mg tablet PLEASE SEE ATTACHED FOR DETAILED DIRECTIO NS active Not Available Not Available No t Available clonazepa m 0.5 mg tablet TAKE 1 TABLET BY MOUTH TWICE A DAY NEEDED 01/27 completed Not Available Not Available Not Available clonidine HCl 0.3 mg tablet Take 1 tablet twice a day by oral route for 30 days. 05/04 completed Not Available Not Available Not Available sertralin e 100 mg tablet 09/18 completed Not Available Not Available Not Available prednison e 5 mg tablet TAKE 3 TABLETS BY MOUTH EVERY DAY IN THE MORNING 01/27 completed Not Available Not Available Not Available promethaz ine 6.25 mg-codein e 10 mg/5 mL syrup Take 5 mL twice a day by oral route as directed for 10 days. 06/13 completed Not Available Not Available Not Available topiramat e 25 mg tablet Take 3 tablets every day by oral route at bedtime for 7 days. 10/07 completed Not Available Not Available Not Available amlodipin e 2.5 mg tablet Take 1 tablet every day by oral route at dinner for 30 days. 10/07 completed Not Available Not Available Not Available clopidogr el 75 mg tablet TAKE 1 TABLET BY MOUTH EVERY DAY IN THE MORNING 01/27 completed Not Available Not Available Not Available amlodipin e 5 mg tablet TAKE 1 TABLET BY MOUTH EVERY DAY IN THE MORNING 01/27 completed Not Available Not Available Not Available prochlorp erazine maleate 10 mg tablet Take 1 tablet twice a day by oral route as needed for 4 days. 05/04 completed Not Available Not Available Not Available ciproflox acin 500 mg tablet TAKE 1 TABLET BY MOUTH TWICE DAILY 05/04 completed Not Available Not Available Not Available hydrocodo ne 10 mg-acetam inophen 325 mg tablet TAKE 1 TABLET BY MOUTH EVERY 6 HOURS NEEDED FOR PAIN 08/28 completed Not Available Not Available Not Available aspirin 81 mg tablet,de layed release TAKE 1 TABLET BY MOUTH EVERY DAY IN THE MORNING 01/27 completed Not Available Not Available Not Available tramadol 50 mg tablet Take 1 tablet twice a day by oral route as needed for 30 days. 06/13 completed Not Available Not Available Not Available spironola ctone 25 mg tablet TAKE ONE TABLET BY MOUTH EVERY DAY AFTER A MEAL FOR FLUID RETENTIO N 01/27 completed Not Available Not Available Not Available carvedilo l 3.125 mg tablet 10/07 completed Not Available Not Available Not Available losartan 100 mg-hydroc hlorothia zide 25 mg tablet 10/02 completed Not Available Not Available Not Available hydrocort isone 2.5 % topical cream with perineal applicato r APPLY THIN LAYER TOPICALL Y TO THE AFFECTED AREA 2 TO 4 TIMES DAILY 01/27 completed Not Available Not Available Not Available isosorbid e mononitra te ER 60 mg tablet,ex tended release 24 hr 12/19 completed Not Available Not Available Not Available clonidine HCl 0.2 mg tablet TAKE 1 TABLET BY MOUTH TWICE A DAY 10/07 completed Not Available Not Available Not Available hydromorp melonie 2 mg tablet TAKE 1 TABLET BY MOUTH EVERY 6 HOURS NEEDED FOR PAIN 08/28 completed Not Available Not Available Not Available famotidin e 20 mg tablet TAKE ONE TABLET BY MOUTH TWICE DAILY BEFORE food FOR STOMACH active Not Available Not Available No t Available magnesium oxide 400 mg (241.3 mg magnesium ) tablet TAKE 1 TABLET BY MOUTH TWICE A DAY active Not Available Not Available No t Available lorazepam 0.5 mg tablet TAKE 1 TABLET BY MOUTH OR UNDER THE TONGUE EVERY 4 HOURS FORNAUSE A AND VOMITING OR ANXIETY 08/28 completed Not Available Not Available Not Available nifedipin e ER 60 mg tablet,ex tended release 24 hr 06/17 completed Not Available Not Available Not Available gabapenti n 800 mg tablet TAKE 1 TABLET BY MOUTH THREE TIMES A DAY FOR 30 DAYS active Not Available Not Available No t Available trazodone 100 mg tablet TAKE 1 TABLET BY MOUTH EVERY DAY AT BEDTIME active Not Available Not Available No t Available nifedipin e ER 90 mg tablet,ex tended release 24 hr 06/13 completed Not Available Not Available Not Available meclizine 25 mg tablet 12/19 completed Not Available Not Available Not Available amlodipin e 10 mg tablet TAKE ONE TABLET BY MOUTH EVERY MORNING FOR BLOOD PRESSURE 01/27 completed Not Available Not Available Not Available benzonata te 100 mg capsule TAKE 1 CAPSULE BY MOUTH THREE TIMES DAILY NEEDED FOR COUGH 06/13 completed Not Available Not Available Not Available dexametha sone 2 mg tablet 08/28 completed Not Available Not Available Not Available triamcino lone acetonide 40 mg/mL suspensio n for injection Take 1 mL by injectio n route for 1 day. 10/07 completed Not Available Not Available Not Available hydrocodo ne 7.5 mg-acetam inophen 325 mg tablet TAKE 1 TABLET BY MOUTH TWICE DAILY NEEDED 01/27 completed Not Available Not Available Not Available cephalexi n 500 mg capsule TAKE 1 CAPSULE BY MOUTH EVERY 12 HOURS FOR 7 DAYS 12/19 completed Not Available Not Available Not Available pantopraz ole 40 mg tablet,de layed release TAKE 1 TABLET BY MOUTH EVERY DAY active Not Available Not Available No t Available nortripty line 10 mg capsule TAKE 2 CAPSULES BY MOUTH AT BEDTIME 01/27 completed Not Available Not Available Not Available Banophen 25 mg tablet TAKE 1 TABLET BY MOUTH EVERY DAY AT BEDTIME 01/27 completed Not Available Not Available Not Available promethaz ine 25 mg tablet 05/04 completed Not Available Not Available Not Available nitroglyc anastasiay 0.4 mg sublingua l tablet PLACE 1 TABLET UNDER TONGUE EVERY 5 MINS, UP TO 3 DOSES NEEDED FOR CHEST PAIN active Not Available Not Available No t Available docusate sodium 100 mg capsule TAKE ONE CAPSULE BY MOUTH TWICE DAILY FOR CONSTIPA TION 01/27 completed Not Available Not Available Not Available gabapenti n 300 mg capsule TAKE 2 CAPSULES BY MOUTH THREE TIMES DAILY active Not Available Not Available No t Available aspirin 81 mg chewable tablet Chew 1 tablet every day by oral route for 30 days. 06/13 completed Not Available Not Available Not Available hydrochlo rothiazid e 25 mg tablet Take 1 tablet every day by oral route in the morning for 30 days. 05/04 completed Not Available Not Available Not Available mirtazapi ne 15 mg tablet TAKE ONE TABLET BY MOUTH AT BEDTIME 2022 active Not Available Not Available Not Avai lable gabapenti n 100 mg capsule TAKE ONE CAPSULE EVERY MORNING AND TAKE TWO CAPSULES EVERY NIGHT AT BEDTIME 01/27 completed Not Available Not Available Not Available Cipro HC 0.2 %-1 % ear drops,kalee pension 08/28 completed Not Available Not Available Not Available levofloxa arvin 500 mg tablet TAKE 1 TABLET BY MOUTH DAILY FOR SKIN INFECTIO N 03/29 /2023 completed Not Available Not Available Not Available oxycodone -acetamin ophen 7.5 mg-325 mg tablet TAKE 1 TABLET BY MOUTH TWICE A DAY NEEDED 01/27 completed Not Available Not Available Not Available levofloxa arvin 750 mg tablet 10/07 completed Not Available Not Available Not Available methylpre dnisolone 4 mg tablets in a dose pack 05/04 completed Not Available Not Available Not Available albuterol sulfate HFA 90 mcg/actua tion aerosol inhaler INHALE 2 PUFFS BY MOUTH 4 TIMES A DAY NEEDED active Not Available Not Available No t Available morphine 15 mg immediate release tablet TAKE 1/2 TABLET BY MOUTH EVERY 4 HOURS NEEDED FOR PAIN 08/28 completed Not Available Not Available Not Available hydroxyzi ne HCl 10 mg tablet TAKE 1 TO 2 TABLETS BY MOUTH 3 TIMES DAILY NEEDED active Not Available Not Available No t Available lisinopri l 40 mg tablet 10/07 completed Not Available Not Available Not Available ondansetr on 4 mg disintegr ating tablet DISSOLVE 1 TABLET ON THE TONGUE 3 TIMES DAILY NEEDED 01/27 completed Not Available Not Available Not Available losartan 100 mg tablet one tab po q d 2023 active Not Available Not Available Not Avai lable doxycycli ne hyclate 100 mg tablet 06/17 completed Not Available Not Available Not Available dicyclomi ne 10 mg capsule TAKE ONE CAPSULE BY MOUTH FOUR TIMES DAILY BEFORE MEALS 01/27 completed Not Available Not Available Not Available naproxen 500 mg tablet TAKE ONE TABLET BY MOUTH TWICE DAILY WITH MEALS FOR PAIN 01/27 completed Not Available Not Available Not Available escitalop janie 10 mg tablet 08/28 completed Not Available Not Available Not Available escitalop janie 20 mg tablet Take 1 tablet every day by oral route at dinner for 30 days. 10/07 completed Not Available Not Available Not Available ezetimibe 10 mg tablet Take 1 tablet every day by oral route in the morning for 30 days. 06/13 completed Not Available Not Available Not Available cyclobenz aprine 5 mg tablet 10/07 completed Not Available Not Available Not Available duloxetin e 30 mg capsule,d elayed release PLEASE SEE ATTACHED FOR DETAILED DIRECTIO NS active Not Available Not Available No t Available duloxetin e 60 mg capsule,d elayed release TAKE 1 CAPSULE BY MOUTH EVERY DAY IN THE MORNING active Not Available Not Available No t Available pregabali n 150 mg capsule Take 1 capsule twice a day by oral route for 30 days. 10/07 completed Not Available Not Available Not Available Lyrica 50 mg capsule Take 1 capsule every day by oral route at bedtime for 7 days. 08/28 completed Not Available Not Available Not Available albuterol sulfate 10/07 completed Not Available Not Available Not Available ranolazin e ER 500 mg tablet,ex tended release,1 2 hr Take 1 tablet twice a day by oral route for 30 days. 05/04 completed Not Available Not Available Not Available aripipraz ole 2 mg tablet TAKE ONE TABLET BY MOUTH EVERY EVENING active Not Available Not Available No t Available hydrochlo rothiazid e 12.5 mg tablet 06/13 completed Not Available Not Available Not Available Symbicort 160 mcg-4.5 mcg/actua tion HFA aerosol inhaler INHALE 2 PUFFS BY MOUTH TWICE DAILY. RINSE MOUTH AFTER 2ND PUFF 01/27 completed Not Available Not Available Not Available ranolazin e ER 1,000 mg tablet,ex tended release,1 2 hr 12/19 completed Not Available Not Available Not Available diclofena c 1 % topical gel APPLY 2 GRAM TO THE AFFECTED AREA(S) BY TOPICAL ROUTE 4 TIMES PER DAY 10/07 completed Not Available Not Available Not Available Aerochamb er Plus Flow-Vu USE with inhaler 01/27 completed Not Available Not Available Not Available Brilinta 90 mg tablet Take 1 tablet twice a day by oral route for 30 days. 08/26 completed Not Available Not Available Not Available Combivent Respimat 20 mcg-100 mcg/actua tion solution for inhalatio n INHALE 1 PUFF BY MOUTH FOUR TIMES DAILY 12/19 completed Not Available Not Available Not Available Linzess 145 mcg capsule TAKE ONE CAPSULE BY MOUTH EVERY DAY FOR CONSTIPA TION 01/27 completed Not Available Not Available Not Available Vascepa 1 gram capsule TAKE 2 CAPSULES BY MOUTH TWICE DAILY TAKE FOR HIGH TRIGLYCE RIDES 12/19 completed Not Available Not Available Not Available Eliquis 2.5 mg tablet one tab po bid 2023 active Not Available Not Available Not Avai lable Pennsaid 20 mg/gram/a ctuation (2 %) topical soln in metered-d ose pump APPLY 2 PUMPS TO THE AFFECTED AREA TWO TIMES DAILY 01/27 completed Not Available Not Available Not Available Imodium A-D 2 mg capsule Take 2 capsules 3 times a day by oral route as needed for 5 days. 06/13 completed Not Available Not Available Not Available Xarelto 2.5 mg tablet TAKE 1 TABLET BY MOUTH TWICE DAILY TO KEEP STENTS OPEN 12/19 completed Not Available Not Available Not Available Nexletol 180 mg tablet TAKE 1 TABLET BY MOUTH ONCE DAILY TAKE WITH EZETIMIB E AND ATORVAST ATIN FOR HIGH CHOLESTE ROL 12/19 completed Not Available Not Available Not Available Nurtec ODT 75 mg disintegr ating tablet TAKE 1 TABLET BY MOUTH DAILY NEEDED FOR 8 DAYS 01/27 completed Not Available Not Available Not Available Vitals Date Recorded Body height Body mass index (BMI) Body weight Oxygen saturation Oxygen saturation in Arterial blood by Pulse oximetry Heart rate Systolic And Diastolic Provider Name and Address Organization Details Last Updated DateTime 3 165.74 cm 13.9 kg/m2 05004.7 6 g 98 % 98 % 82 /min 130/90 mm[Hg] Sarai Hart [place] - [facility] 3 10:41:49 Date Recorded Body height Body mass index (BMI) Body weight Oxygen saturation Oxygen saturation in Arterial blood by Pulse oximetry Heart rate Systolic And Diastolic Provider Name and Address Organization Details Last Updated DateTime 2 165.74 cm 17 kg/m2 98589.0 1 g 99 % 99 % 78 /min 152/100 mm[Hg] Toyin Gama MA [place] - [facility] 2 17:05:50 Date Recorded Body height Body mass index (BMI) Body weight Oxygen saturation Oxygen saturation in Arterial blood by Pulse oximetry Heart rate Systolic And Diastolic Provider Name and Address Organization Details Last Updated DateTime 2 165.74 cm 15.7 kg/m2 72956.7 1 g 94 % 94 % 71 /min 130/82 mm[Hg] Toyin Gama MA [place] [facility] 2 09:57:34 Date Recorded Body height Body mass index (BMI) Body weight Oxygen saturation Oxygen saturation in Arterial blood by Pulse oximetry Heart rate Systolic And Diastolic Provider Name and Address Organization Details Last Updated DateTime 4 165.74 cm 16.1 kg/m2 03908.9 g 99 % 99 % 78 /min 126/82 mm[Hg] Sarai Hart MA [facility] 4 10:13:13 Date Recorded Body height Body mass index (BMI) Body weight Oxygen saturation Oxygen saturation in Arterial blood by Pulse oximetry Heart rate Systolic And Diastolic Provider Name and Address Organization Details Last Updated DateTime 2 165.74 cm 15.5 kg/m2 09307.9 6 g 97 % 97 % 80 /min 142/82 mm[Hg] Kendra Thomas MA [facility] 2 11:58:04 Social History Question Answer Notes LastModified by Organizat ion Details LastModified Time Tobacco Smoking Status Former Smoker Joni Morataya MA [facility] 06/17/2018 11:58:11 Do You Have An Advance Directive? No Information not available 09/18/2018 What Is Your Level Of Caffeine Consumption? Moderate Information not available 09/18/2018 How Much Tobacco Do You Chew? None Information not available 09/18/2018 What Type Of Diet Are You Following? SPECIFIC Information not available 09/18/2018 Which Illicit Or Recreational Drugs Have You Used? Denies Information not available 09/18/2018 Education 4 Year College Information not available 09/18/2018 Are There Any Guns Present In Your Home? No Information not available 09/18/2018 Hard Of Hearing Or Deaf In One Or Both Ears? No Information not available 09/18/2018 Legally Blind In One Or Both Eyes? No Information no t available 09/18/2018 Marital Status Single Informati on not available 09/18/2018 What Was The Date Of Your Most Recent Tobacco Screening? 01/28/2024 Information not available 01/28/2024 Performs Monthly Self-breast Exam? No Information no t available 09/18/2018 Seat Belts Used Routinely Yes Information not available 09/18/2018 Smoke Alarm In Home Yes Information not available 09/18/2018 At What Age Did You Start Smoking Tobacco? 15 Information not available 09/18/2018 How Much Tobacco Do You Smoke? No Information not available 10/08/2019 General Stress Level High Information not available 09/18/2018 Do You Use Sunscreen Routinely? Yes Information not available 09/18/2018 Has Tobacco Cessation Counseling Been Provided? Yes Information not available 01/28/2024 On What Date Was Tobacco Cessation Counseling Provided? 01/28/2024 Information not available 01/28/2024 How Many Years Have You Smoked Tobacco? 45 Information not available 06/17/2018 Sex: Unknown Functional Status Question Answer Note LastModified by Organizat ion Details LastModified Time What is your level of alcohol consumption? None Information not available 06/17/2018 Do you or have you ever used smokeless tobacco? Never used smokeless tobacco Information not available 10/08/2019 What is your occupation? retired Information not available 09/18/2018 Do you or have you ever used e-cigarettes or vape? Never used electronic cigarettes Information not available 10/08/2019 What is your exercise level? Moderate Information not available 09/18/2018 Mental Status None recorded. Family History Relationship Description Onset Age of this Age Resolved Age Notes LastModified by Organization Details LastModified Time Father No current problems or disability [email or web address] Not available 10/07 15:46:29 Mother No current problems or disability [email or web address] Not available 10/07 15:46:29 Medical History Condition Response Atrial Fibrillation Y High Blood Pressure Y COPD Y Depression Y Anxiety Disorder Y Muscle, Joint, or Bone Problems Y Acid Reflux (GERD) Y Cancer Y Stroke Y High Cholesterol Y Headaches Y Heart Attack (IA) Y Diabetes N Allergies Y Hepatitis Y Gynecological HistoryNo gynecological history recorded. Obstetrics History GPAL:G 0 P 0 0 0 0 Immunizations Vaccine Type Date Status Note Provider Nam e and Address Organization Details Recorded Time tetanus toxoid, unspecified formulation 6 completed Not Available [facility] 03/23/2022 02:06:27 Influenza, split virus, quadrivalent, preservative 9 completed Not Available [facility] 03/23/2022 02:06:27 SARS-COV-2 (COVID-19) vaccine, UNSPECIFIED 1 completed Not Available [facility] 03/23/2022 02:06:27 COVID-19, mRNA, LNP-S, PF, 30 mcg/0.3 mL dose 1 completed Not Available [facility] 03/23/2022 02:06:27 Influenza, split virus, quadrivalent, preservative 1 completed Not Available [facility] 03/23/2022 02:06:27 COVID-19, mRNA, LNP-S, PF, 100 mcg/0.5mL dose or 50 mcg/0.25mL dose 1 completed Not Available [facility] 03/23/2022 02:06:27 pneumococcal polysaccharide PPV23 2 completed Jina Nair MA [facility] 12/19/2021 10:45:48 Past Encounters Encounter ID Performer Location Encounter Start Date Encounter Closed Date Diagnosis/Indication Diagnosis SNOMED-CT Code Diagnosis ICD10 Code Diagnosis IMO Codes Diagnosis Note [id number] MD [facility] (Adult Med) [address] [place] [address] [id number] 06/17/2018 11:33:42 06/18/2018 09:09:31 Essential hypertension 18029445 I10 Cough 51713923 R05 Atrial fibrillation [address] Mireya sandoval internal cardiac defibrillator and pacemaker in situ 208418995 Z95.810 [employer] Migraine 63492364 G43.90 9 Excessive thirst 2169288 7 R63.1 Systemic l upus erythematosus 12750852 M32.9 [id number] MD [facility] (Adult Med) [address] [place] [address] [id number] 0 07/02/2018 13:58:50 07/02/2018 15:32:17 Cerebrovascular accident 793459011 I63.9 Atrial fibrillation [address] Gomes Migraine 29122977 G43.90 9 Essential hypertension 69481240 I10 [id number] MD [facility] (Adult Med) [address] [place] [address] 0 08/28/2018 10:58:33 08/28/2018 13:24:10 Cerebrovascular accident 085041249 I63.9 Systemic l upus erythematosus 03353713 M32.9 Injury of head 21988174 S09.90XA hit in back of head Injury of shoulder region 462890248 S49.92XA Atrial fibrillation [address] Gomes Cough 98135828 R05 Insomnia 222523373 G47.0 0 [id number] MD [facility] (Adult Med) [address] [place] [address] [id number] 09/18/2018 15:41:12 09/18/2018 16:26:24 Nausea 875586640 R11.0 Insomnia 786607526 G47.0 0 Essential hypertension 34174212 I10 Depressive disorder 3548 9007 F33.8 Lupus erythematosus 2008 54370 L93.0 Cerebrovas cular accident 960736177 I63.9 Combinatio n internal cardiac defibrillator and pacemaker in situ 636402443 Z95.810 [employer] [id number] MD [facility] (Adult Med) [address] [place] [address] [phone] 10/09/2018 16:54:21 10/09/2018 17:27:43 Hematochezia 224915266 K62.5 Systemic l upus erythematosus 57267577 M32.9 Nausea 185529857 R11.0 Cough 22409778 R05 Migraine 71899835 G43.90 9 Depressive disorder 3548 9007 F33.8 Insomnia 138146949 G47.0 0 Cerebrovas cular accident 045821900 I63.9 Combinatio n internal cardiac defibrillator and pacemaker in situ 771918182 Z95.810 [employer] Essential hypertension 34086720 I10 Lupus erythematosus 2008 85106 L93.0 [id number] MD [facility] (Adult Med) [address] [place] [address] [id number] 10/30/2018 11:38:02 10/30/2018 13:10:40 Nausea 503560768 R11.0 Combinatio n internal cardiac defibrillator and pacemaker in situ 027945331 Z95.810 [employer] Systemic l upus erythematosus 02371578 M32.9 Essential hypertension 19810391 I10 Lupus erythematosus 2008 07575 L93.0 Cerebrovas cular accident I63.9 Depressive disorder 3548 9007 F33.8 Urinary incontinence 165 368298 R32 [id number] [facility] [address] [place] [address] [id number] 0 01/22/2019 15:28:57 01/25/2019 11:31:20 Essential hypertension 73981039 I10 Pain of oulder region 75105004 M25.519 Depressive disorder 3548 9007 F33.8 Insomnia 047118378 G47.0 0 Cerebrovas cular accident 240353687 I63.9 Systemic l upus erythematosus 06758576 M32.9 Combinatio n internal cardiac defibrillator and pacemaker in situ 235259226 Z95.810 [employer] [id number] Shivani Arellano MD [facility] (Adult Med) [address] [place] [address] [id number] 02/22/2019 16:21:19 02/23/2019 09:39:15 Cough 29563629 R05 Acute otitis media 42194 03 H66.93 Insomnia 405908202 G47.0 0 Pain of sh oulder region 05991637 M25.519 Systemic l upus erythematosus 29465851 M32.9 Chronic ob structive pulmonary disease 32673788 J44.9 Hyperparathyroidism 6699 9008 E21.3 Combinatio n internal cardiac defibrillator and pacemaker in situ 407255102 Z95.810 [employer] Essential hypertension 55425081 I10 Lupus erythematosus 2008 53249 L93.0 [id number] MD [facility] (Adult Med) [address] [place] [address] [id number] 04/16/2019 14:43:31 04/20/2019 09:55:07 Pain of shoulder region 90683472 M25.519 Systemic l upus erythematosus 18427119 M32.9 Acute otitis media 91583 03 H66.93 Migraine 06492198 G43.90 9 Chronic ob structive pulmonary disease 31445293 J44.9 Insomnia 399274972 G47.0 0 Essential hypertension 95650650 I10 Cerebrovas cular accident 745121690 I63.9 Atrial fibrillation [address] Mireya sandoval internal cardiac defibrillator and pacemaker in situ 632336363 Z95.810 [employer] Congestive heart failure 06381151 I50.9 Hyperlipidemia 22944241 E78.5 Gastroesop hageal reflux disease 988457661 K21.9 Upper resp iratory infection 06527777 J06.9 [id number] Shivani Arellano MD [facility] ([facility]ult [facility] [address] [place] [address] [id number] 05/20/2019 10:22:38 05/20/2019 11:38:09 Essential hypertension 04271796 I10 Systemic l upus erythematosus 62297131 M32.9 Acute otitis media 74382 03 H66.93 Not for resuscitation 30 9105463 Z66 Chronic ob structive pulmonary disease 99323888 J44.9 Cerebrovas cular accident 070986003 I63.9 Congestive heart failure 95932364 I50.9 Gastroesop hageal reflux disease 142116499 K21.9 Hyperlipidemia 71446461 E78.5 Hyperparathyroidism 6699 9008 E21.3 Insomnia 972897144 G47.0 0 Lupus erythematosus 2009 27795 L93.0 [id number] Shivani Arellano MD [facility] (Adult Med) [address] [place] [address] [id number] 06/14/2019 14:42:38 06/15/2019 12:05:51 Diverticulitis 380598330 K57.92 Atrial fibrillation [address] Gomes Cerebrovas cular accident 741608720 I63.9 Chronic ob structive pulmonary disease 12451133 J44.9 Combinatio n internal cardiac defibrillator and pacemaker in situ 705156985 Z95.810 [employer] Congestive heart failure 22244287 I50.9 Depressive disorder 3548 9007 F33.8 Essential hypertension 26285204 I10 Gastroesop hageal reflux disease 460435738 K21.9 Hyperlipidemia 87121931 E78.5 Systemic l upus erythematosus 23235584 M32.9 [id number] MD [facility] (Adult Med) [address] [place] [address] [id number] 06/30/2019 12:29:50 06/30/2019 13:03:11 Diverticulitis 000974675 K57.92 Nausea 509653147 R11.0 Gastroesop hageal reflux disease 070057194 K21.9 Chronic ob structive pulmonary disease 60485878 J44.9 Hyperlipidemia 64461519 E78.5 Systemic l upus erythematosus 25562524 M32.9 Essential hypertension 66523937 I10 Cerebrovas cular accident 089013322 I63.9 Combinatio n internal cardiac defibrillator and pacemaker in situ 866059605 Z95.810 [employer] Pain of [facility] region 23172516 M25.519 Right uppe r quadrant pain 494024116 R10.11 Not for resuscitation 30 7491745 Z66 [id number] MD [facility] (Adult Med) [address] [place] [address] [id number] 08/27/2019 13:56:29 08/27/2019 14:43:11 Essential hypertension 37081004 I10 Congestive heart failure 97268699 I50.9 Gastroesop hageal reflux disease 597846868 K21.9 Hyperlipidemia 75764940 E78.5 Lupus erythematosus 2009 55682 L93.0 Cerebrovas cular accident 107894274 I63.9 Anxiety 47744090 F41.9 Combinatio n internal cardiac defibrillator and pacemaker in situ 557101347 Z95.810 [employer] [id number] MD [facility] (Adult Med) [address] [place] [address] [id number] 10/08/2019 09:42:23 10/11/2019 10:51:05 Congestive heart failure 86495049 I50.9 Atrial fibrillation [address] Gomes Gastroesop hageal reflux disease 026389918 K21.9 Insomnia 263718564 G47.0 0 Right uppe r quadrant pain 946588909 R10.11 Injury of shoulder region 788777544 S49.92XA Diverticulitis 988968277 K57.92 Chronic ob structive pulmonary disease 72649523 J44.9 Essential hypertension 02253325 I10 Chest pain 90958580 R07. 9 Urinary incontinence 165 759285 R32 Systemic l upus erythematosus 40948774 M32.9 [id number] MD Helen Sousa (Adult Med) [address] [place] [address] [phone] 0 10/26/2019 08:37:06 10/27/2019 08:53:12 Cerebrovascular accident 620682712 I63.9 Chronic ob structive pulmonary disease 76649367 J44.9 Congestive heart failure 74019318 I50.9 Depressive disorder 3548 9007 F33.8 Essential hypertension 98220165 I10 Gastroesop hageal reflux disease 170103620 K21.9 Hyperlipidemia 23636645 E78.5 Insomnia 543097546 G47.0 0 Systemic l upus erythematosus 59635057 M32.9 Injury of muscle of lower back 683638283 S39.002A Strain of tendon of left ankle 8788856646 8068314 S96.912A [id number] MD Helen Sousa (Adult Med) [address] [place] [address] [id number] 0 01/17/2020 08:08:52 01/17/2020 17:26:35 Pneumonia 886515978 J18.9 Insomnia 150890951 G47.0 0 Hyperlipidemia 62698658 E78.5 Gastroesop hageal reflux disease 002919769 K21.9 Essential hypertension 91548441 I10 Depressive disorder 3548 9007 F33.8 Chronic ob structive pulmonary disease 27197832 J44.9 Cerebrovas cular accident 866304565 I63.9 Atrial fibrillation [address] 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 Gomes Fibromyalgia 123989606 M 79.7 Hypokalemia 38212368 E87 .6 Injury of shoulder region 855608698 S49.92XA Acute otitis media 81082 03 H66.93 Urinary incontinence 165 150228 R32 [id number] Shivani Arellano MD [facility] (Adult Med) [address] [place] [address] [phone] 0 07/27/2020 08:23:28 07/27/2020 11:33:11 Pain of shoulder region 54866392 M25.519 Injury of shoulder region 999485086 S49.92XA Combinatio n internal cardiac defibrillator and pacemaker in situ 746287781 Z95.810 [employer] Anxiety 34616844 F41.9 Depressive disorder 3548 9007 F33.8 Nausea 514707057 R11.0 Gastroesop hageal reflux disease 010216518 K21.9 Atrial fibrillation [address] Gomes Cerebrovas cular accident 663007598 I63.9 Chronic ob structive pulmonary disease 92927357 J44.9 Congestive heart failure 03244819 I50.9 Essential hypertension 70782472 I10 Fibromyalgia 577692917 M 79.7 Hyperlipidemia 15947510 E78.5 Hyperparathyroidism 6699 9008 E21.3 Insomnia 061174091 G47.0 0 Lupus erythematosus 2009 96125 L93.0 Systemic l upus erythematosus 23448206 M32.9 [id number] Shivani Arellano MD [facility] (Adult Med) [address] [place] [address] [id number] 0 08/28/2020 08:29:26 08/29/2020 10:20:22 Pain of shoulder region 89304019 M25.519 Gastroesop hageal reflux disease 001534585 K21.9 Injury of shoulder region 025646216 S49.92XA Acute otitis media 64263 03 H66.93 Migraine 63544288 G43.90 9 Anxiety 28221182 F41.9 Atrial fibrillation [address] 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 Gomes Chronic ob structive pulmonary disease 01272381 J44.9 Congestive heart failure 79288260 I50.9 Fibromyalgia 387775346 M 79.7 Gastroesop hageal reflux disease 333414683 K21.9 Hyperlipidemia 68214716 E78.5 Insomnia 999660850 G47.0 0 Lupus erythematosus 2008 03526 L93.0 [id number] MD Helen Sousa (Adult Med) [address] [place] [address] [phone] 0 12/21/2020 13:54:03 12/21/2020 14:49:46 Acute bronchitis 56527708 J20.9 Atrial fibrillation [address] Gomes Cerebrovas cular accident 400033981 I63.9 Chronic ob structive pulmonary disease 58142743 J44.9 Combinatio n internal cardiac defibrillator and pacemaker in situ 516780340 Z95.810 [employer] Congestive heart failure 81116358 I50.9 Degenerati on of cervical intervertebral disc 56885651 M50.30 Essential hypertension 48546743 I10 Fibromyalgia 053116478 M 79.7 Gastroesop hageal reflux disease 035511249 K21.9 Hyperlipidemia 79052947 E78.5 Insomnia 819837841 G47.0 0 Lupus erythematosus 2009 19915 L93.0 [id number] Shivani Arellano MD [facility] (Adult Med) [address] [place] [address] [phone] 0 05/04/2021 14:41:06 05/04/2021 17:24:12 Nausea, vomiting and diarrhea 0128330 R11.2 Pain in bi lateral legs 1985452169 7580214 M79.604 M79.605 Injury of shoulder region 425021445 S49.92XA Gastroesop hageal reflux disease 518445476 K21.9 Liver enzy mes level above reference range 556384353 R74.01 Anxiety 39071057 F41.9 Angina pectoris 48586553 0 I20.9 Atrial fibrillation [address] Gomes Cerebrovas cular accident 851870127 I63.9 Chronic ob structive pulmonary disease 65040540 J44.9 Combinatio n internal cardiac defibrillator and pacemaker in situ 108128348 Z95.810 [employer] Congestive heart failure 47880760 I50.9 Degenerati on of cervical intervertebral disc 23751646 M50.30 Depressive disorder 3548 9007 F33.8 Essential hypertension 72362164 I10 Fibromyalgia 741475486 M 79.7 Hyperlipidemia 55419314 E78.5 Hyperparathyroidism 6699 9008 E21.3 Hypertensive disorder 38 216451 I10 Hypokalemia 87419338 E87 .6 Insomnia 626042435 G47.0 0 Stented co ronary artery 644399508 Z95.5 Systemic l upus erythematosus 45128975 M32.9 Ventricula r premature beats 17728162 I49.3 [id number] MD Helen Sousa (Adult Med) [address] [place] [address] [phone] 0 06/13/2021 09:43:27 06/13/2021 10:14:59 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 placed in 2016 Congestive heart failure 40120070 I50.9 Chest pain 00806390 R07. 9 Injury of shoulder region 599159646 S49.92XA Injury of right ankle 11 32991052 3390831 S99.911A Pain in bi lateral legs 4844513037 2403381 M79.604 M79.605 Depressive disorder 3548 9007 F33.8 Lupus erythematosus 2008 48254 L93.0 Anxiety 30207406 F41.9 Cerebrovas cular accident 612942259 I63.9 Chronic ob structive pulmonary disease 22229656 J44.9 Degenerati on of cervical intervertebral disc 40239675 M50.30 Essential hypertension 20944639 I10 Gastroesop hageal reflux disease 113149713 K21.9 History of cerebrovascular accident 940904082 Z86.73 Hyperlipidemia 46851649 E78.5 Insomnia 895626222 G47.0 0 Stented co ronary artery 173242504 Z95.5 Systemic l upus erythematosus 26179938 M32.9 [id number] MD Helen Sousa (Adult Med) [address] [place] [address] [phone] 0 09/03/2021 15:45:04 09/04/2021 16:47:44 Injury of shoulder region 136049031 S49.92XA left Pain of sh oulder region 58520292 M25.519 Injury of right ankle 11 35419200 3655106 S99.911A Anxiety 22574234 F41.9 Atrial fibrillation [address] Gomes Cerebrovas cular accident 322395934 I63.9 Chronic ob structive pulmonary disease 31925067 J44.9 Combinatio n internal cardiac defibrillator and pacemaker in situ 326920585 Z95.810 [employer]. placed in 2016 Degenerati on of cervical intervertebral disc 57278208 M50.30 Depressive disorder 3548 9007 F33.8 Essential hypertension 23810130 I10 Fibromyalgia 880049316 M 79.7 Gastroesop hageal reflux disease 994057864 K21.9 Hyperlipidemia 53807648 E78.5 Insomnia 585947197 G47.0 0 Lupus erythematosus 2008 67206 L93.0 Pain in bi lateral legs 2704574779 2535154 M79.604 M79.605 Stented co ronary artery 057131529 Z95.5 Systemic l upus erythematosus 87022344 M32.9 [id number] MD Helen Sousa (Adult Med) [address] [place] [address] 98697-554 0 10/22/2021 16:53:15 10/23/2021 09:14:29 Nausea 336057664 R11.0 Chronic id iopathic constipation 31676981 K59.04 [id number] MD Helen Sousa (Adult Med) [address] [place] [address] 22152-743 0 12/19/2021 09:36:36 12/20/2021 11:49:48 Anxiety 30878149 F41.9 Gastroesop hageal reflux disease 965967530 K21.9 Nausea 728852352 R11.0 Disorder o f cardiac pacemaker system 225843641 T82.9XXA History of cerebrovascular accident 200255402 Z86.73 Fibromyalgia 758434102 M 79.7 Depressive disorder 3548 9007 F33.8 Administra tion of pneumococcal vaccine 56898580 Z23 Menopause 158787074 Z78. 0 Cerebrovas cular accident 131074412 I63.9 Chronic id iopathic constipation 74918533 K59.04 Congestive heart failure 30571836 I50.9 Degenerati on of cervical intervertebral disc 85009740 M50.30 Hyperlipidemia 66653211 E78.5 Hypertensive disorder 38 165460 I10 Insomnia 694698740 G47.0 0 Systemic l upus erythematosus 24322936 M32.9 Ventricula r premature beats 33916316 I49.3 [id number] MD Helen Sousa (Adult Med) [address] [place] [address] [phone] 0 02/14/2022 11:45:08 02/15/2022 10:15:35 Anxiety 83516696 F41.9 Lupus erythematosus 2009 47043 L93.0 History of cerebrovascular accident 154866072 Z86.73 Chronic ob structive pulmonary disease 18876329 J44.9 Chronic id iopathic constipation 57353115 K59.04 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 placed in 2015 Cerebrovas cular accident 890514297 I63.9 Congestive heart failure 49471092 I50.9 Degenerati on of cervical intervertebral disc 12099599 M50.30 Essential hypertension 65635685 I10 Fibromyalgia 503544400 M 79.7 Gastroesop hageal reflux disease 663369983 K21.9 Hyperlipidemia 35985585 E78.5 Insomnia 018162450 G47.0 0 Stented co ronary artery 969516228 Z95.5 Systemic l upus erythematosus 77957800 M32.9 [id number] MD [facility] (Adult Med) [address] [place] [address] [phone] 0 08/08/2022 10:23:01 08/14/2022 10:07:09 Chronic pain 71272862 G89.29 Chronic ob structive pulmonary disease 44711682 J44.9 Systemic l upus erythematosus 48227286 M32.9 Cerebrovas cular accident 550057711 I63.9 Anxiety disorder 2595290 06 F41.9 History of cerebrovascular accident 719094976 Z86.73 chronic pain [id number] Ashley Sepulveda MD [facility] (Adult Med) [facility] [place] [address] 01/28/2024 10:03:36 01/30/2024 13:32:15 Abdominal pain 84941407 R10.9 Right lower quadrant and suprapubic pain on exam. No GI symptoms. Will get an abdominal and pelvic CT. Renal angl e tenderness 358290309 R10.829 Right CVA tenderness but no urinary symptoms. Kidney function tests elevated at ER in October. Will check a urine and repeat renal function. Fatigue 68755165 R53.83 Fatigue and mood changes. Has been out of medication for one to two months so that may be a factor. Will refill medication s and see how she feels at follow up in three months. Will check blood work to look for systemic issues. History of atrial fibrillation 845309496 Z86.79 History of atrial fibrillati on. Was in ER in October and placed on Eliquis. Patient is unsure why. Will review records. Consider paroxysmal atrial fibrillati on. Continue Eliquis for now. I will reach out to the cardiolgis t whose name is on the original prescripti on. I have multiple ER records but no records with this cardiologi sts name on it. The last cardiologi st note I have on her is from 2022 and it is a different cardiologi st. Lupus erythematosus 2008 47248 L93.0 History of lupus. Will check BASSAM and Sed rate. Nicotine user 135713222 Z72.0 History of smoking, decreased apetite and under weight. Will check CXR. Chronic ob structive pulmonary disease 04089337 J44.9 When has Advair does not need Albuterol regularly. Essential hypertension 69300139 I10 Has been out of blood pressure medication for about last month. Will continue Losartan for its renal protective effects and hold off on the Amlodipine since her blood pressure is so good today. Repeat blood pressure at follow up. Gastroesop hageal reflux disease 027967290 K21.9 Depressive disorder 3042 9007 F32.Patrick Has been out of medication for a month or so. Even though she feels that the Duloxetine was not helping, I think it is hard to assess because she has been feeling bad for about the same time she has been out of her medication . We are going to resume her medication s and then reassess. Memory impairment 606391 006 R41.3 Concerned about her memory. Was not able to do an extensive assessment today due to the multiple things we had to address since I have not seen her in some time. She was oriented to time, place, and person. She could tell me the president. She was unable to tell me what happened with a hospitaliz ation in October. We will get blood work today and if that is normal we will do a more thorough memory evaluation at follow up. Health Concerns Section Related Observation LastModified by Organization Detai ls LastModified Time None Recorded Concern Status LastModified by Organization Details LastModified Time None Recorded Advance Directives Directive N: Payers Insurance Date Sequence Insurance Name Policy Number Policy Leonard Covered Member ID Leonard Member ID Guarantor Name 01/28/2024 2 [employer] [place] ON [place] AFTER 2020 (MEDICAID REPLACEMENT - HMO) Teagan Canaan [id number] Teagan Zakiya 01/28/2024 1 [employer] - PREMIER PLAN - DUAL (MEDICARE - MEDICAID REPLACEMENT HMO) Teagan Zkaiya [id number] Teagan Zakiya 01/28/2024 1 [facility] (MEDICARE REPLACEMENT/ADVA NTAGE - HMO) [id number] Teagan F Zakiya [id number] Teagan Canaan 01/28/2024 2 [facility] (MEDICAID HMO) Teagan Zakiya [id number] Teagan Zakiya 01/28/2024 2 [place] WHEN MEDICARE OR MEDICARE REPLACEMENT PRIMARY) Teagan Canaan [id number] Teagan Zakiya 01/28/2024 [place]HC [place] F[place] Teagan Zakiya [id number] Teagan Canaan 01/28/2024 1 [place] Teagan Zakiya [id number] Teagan Zakiya 01/28/2024 1 [place] Teagan F Canaan [id number] Teagan Zakiya 01/28/2024 2 [facility] (MEDICAID HMO) Teagan Zakiya [id number] Teagan Canaan 01/28/2024 2 [employer] [facility] (MEDICAID HMO) Teagan Canaan [id number] Teagan Zakiya 01/28/2024 [employer] (MEDICAID HMO) [facility] Teagan Zakiya [id number] Teagan Zakiya 01/28/2024 2 [facility] Teagan Canaan [id number] Teagan Canaan 01/28/2024 2 [facility] (INDIVIDUALLY FUNDED) Teagan Canaan [id number] Teagan Canaan 01/28/2024 1 [employer] BETTER [employer] - PREMIER PLAN - DUAL (MEDICARE - MEDICAID REPLACEMENT HMO) Teagan Canaan [id number] Teagan Zakiya 01/28/2024 1 [employer] [place] AFTER 2020 (MEDICARE REPLACEMENT/ADVA NTAGE - HMO) Teagan Canaan [id number] Teagan Zakiya 01/28/2024 [place] OR MEDICARE REPLACEMENT PRIMARY) Teagan Zakiya [id number] Teagan Canaan Notes Date Note Type Note Provider Name and Address Organization Details Recorded Time 10/22/2021 text/html ROS as noted in the HPI several visits to ED . n/v . constipation Wesley Loaiza PA-C Attn: [address] [place], [address], [facility] 10/26/2021 23:24:43 12/19/2021 text/html ROS as noted in the HPI hospitalized three times since last visit . Can't keep food down . No constipation , diarrhea , pencil thin stools Wesley Loaiza PA-C Attn: [address] [facility], [place], [address], [facility] 12/22/2021 12:40:34 02/14/2022 text/html ROS as noted in the HPI right side was weak , mild , not progressing ........ Wesley Loaiza PA-C Attn: [address] , [place], [address], [place] 02/18/2022 17:29:29 08/08/2022 text/html history of lupus, presents in wheelchair today with main caregiver who is an elderly gentleman, complains of chronic pain, said she has been taking narcotics but has not had a doctor to fill scripts in some time, is very concerned about getting her pain medication filled, said she is in a lot of pain all over, also needs medical equipment, multiple GI complaints, was in the hospital a couple of months ago, has had a GI workup, brought in multiple medication lists of medications she just had filled on August 05 that she wanted filled today, history of anxiety for which she has taken benzodiazepines in the past, care givers are partner who is here with her today and two sons, one of which is in his forties and other who is in his fifties. ROXANNE Pri[place], [place] 08/09/2022 15:44:32 01/28/2024 text/html ROS as noted in the HPI follow up, has not been seen here since July of 2022, said she has not been here because she was feeling good up until a couple of months ago, a couple of months ago started feeling tired all the time, sleeping but not sound, no energy, mood is not good, agitated quick, two sons live with her and help her so she feels like she should not be feeling this way, in general doesn't feel good, back hurts, twisted back two weeks ago when bent down to pick something up and thinks that is why it hurts, back hurts on right side, no dysuria, no urinary frequency, no diarrhea or constipation, no chest pain, no shortness of breath, no fever, has lost weight, not eating as well, doesn't eat as much, decreased appetite, no nausea or vomiting, no stomach pain, no night sweats, no vaginal bleeding, when tries to go to sleep thinks about the day and what has to do, wonders why not feeling well, takes about an hour to fall asleep, falls asleep between ten and ten thirty, up at five thirty, has lupus, history of a stroke with slight resdual weakness left arm, occasional joint pains in legs from lupus, has palpitations, has been out of all medications about a month, when had inhalers used the prn inhaler once every two months, when was taking Duloxetine it started out working well but after awhile felt like it wasn't working, was in ER in October, feels like having a problem with memory, Ashley Sepulveda MD Attn: [address] [facility], [place], [address], [facility] 01/30/2024 11:23:07 OBGyn Episode No OBEpisode recorded.
--- OUTSIDE RECORDS SUMMARY | 2025-03-05 14:11 | XMS_ITS | Encounter Summary ---
Author Organization [facility] Address [address] [place] [address] Care Team Providers Care Penetration Tester Name Role Phone Karan Snyder MD Unavailable [phone] Wesley Loaiza Primary Care Provider + Lilia Gomes MD Unavailable [phone] Mando Acuña MD Unavailable [phone] Larry Gregory MD Unavailable [phone] Nixon Casey MD Unavailable Renan Espino MD Unavailable [phone] Encounter Details Date Type Department Care Team (Late st Contact Info) Description 03/01/2025 Orders Only [facility] Cardiology [address] [place] [address] Lila Argueta MD [address] [facility] [address], [place] [address] Social History Tobacco Use Types Packs/Day Years [...] often do you attend chur ch or restorationism services? More than 4 times per year 02/04/2023 Do you belong to any clubs o r organizations such as uatsdin groups, unions, fraternal or athletic groups, or [...] place to sleep or slept in a mcc (including now)? No 02/04/2023 Personal Safety Answer Date Recorded Have you ever been in or are you currently in a harmful physical or emotional relationship or is someone making you feel afraid or unsafe? Denies 02/12/2025 Comments No Sex and Gender Information Value Date Recorded Sex Assigned at Not on file Legal Sex Female 1:55 AM [employer]UFF [employer] Gender Identity Not on file Sexual Orientation Not on file documented as of this encounter Plan of Treatment Not on file documented as of this encounter Procedures Procedure Name Priority Date/Time Associated Diagnosis Comments CARDIOLOGY DOCUMENT SCAN Routine 025 12:39 PM CDT documented in this encounter Results * Cardiology Document Scan (02/28/2025 12:39 PM CDT) Anatomical Region Laterality Modality Other us Lila Argueta MD [facility] CARDIAC SERVICES PROCEDURES Final Result documented in this encounter Visit Diagnoses Not on filedocumented in this encounter Care Teams Penetration Tester Relationship Specialty Start Date End Date Wesley Loaiza PA [address] [place] [address] PCP - General 09/07/18 Karan Snyder MD Consulting Physician Cardiology 05/19/17 Lilia Gomes MD [address] [place] [address] Consulting Physician Cardiovascular Disease 09/08/18 Mando Acuña MD [address] [place] [address] Consulting Physician Cardiology 10/05/18 Larry Gregory MD [address] [place] [address] Consulting Physician Internal Medicine 07/29/19 Nixon Casey MD [address] [place] [address] Consulting Physician Gastroenterology 09/28/19 [place] [address] [address] Consulting Physician Gastroenterology 11/13/21 documented as of this encounter
--- OUTSIDE RECORDS SUMMARY | 2025-03-05 14:11 | XMS_ITS | Clinical Summary ---
Author Organization [facility] [address] Address [address] [place] [address] Care Team Providers Care Saw Edge Fuser Circular Name Role Phone Karan Snyder MD Unavailable [phone] Wesley Loaiza Primary Care Provider + Lilia Gomes MD Unavailable [phone] Mando Acuña MD Unavailable [phone] Larry Gregory MD Unavailable [phone] Nixon Casey MD Unavailable Renan Espino [...] encephalopathy 07/13/2020 COPD (chronic obstructive pulmonary disease) ([facility]) 07/11/2020 Assessment & Plan (07/11/2020 7:26 PM SCUBA DIVE TRAINING INSTRUCTOR): Not in exacerbation. Prn duo-nebs. HCAP (healthcare-associated pneumonia) 0 MARIELA (acute kidney injury) ([facility]) 12/01/2019 Hepatitis 12/01/2019 Multiple skin nodules 12/01/2019 Chest pain 11/30/2019 Overview (12/01/2019): Added automatically from request for surgery [id number] Assessment & Plan (07/11/2020 7:20 PM SCUBA DIVE TRAINING INSTRUCTOR): Suspect fibromyalgia related but need to r/o acs. Troponin levels of 12, 10, continue serial readings. EKG A-paced 71. Pacer interrogated today w/o any events recorded. Cardiology has been consulted for which we appreciate their evaluation and recommendations. Telemetry monitoring. Prn dilaudid. Resumed ranexa, naproxen and asa. Esophageal dysphagia 09/26/2019 Overview (09/27/2019): Added automatically from request for surgery [id number] Severe malnutrition ([facility]) 07/19/2019 Acute CVA (cerebrovascular accident) 07/17/2019 Assessment & Plan (07/17/2019 2:49 PM SCUBA DIVE TRAINING INSTRUCTOR): S/p TPA. CT and CTA as noted [...] of MT (myocardial infarction) 10/02/2018 Chronic CHF ([facility]) 10/02/2018 Assessment & Plan (07/11/2020 7:25 PM SCUBA DIVE TRAINING INSTRUCTOR): Appears compensated. Last echo from 07/2019 with diastolic dysfunction Grade 1, EF 70%. Home medications listed above. Cardiology following. Assessment & Plan (09/26/2019 6:32 PM CDT): S/p AICD placement 2015. Echo 07/2019 with impaired diastolic dysfunction Grade 1 with EF 70%. On ASA, statin, coreg, zetia and prn nitro. Assessment & Plan (07/17/2019 2:50 PM SCUBA DIVE TRAINING INSTRUCTOR): Echo from 08/2018 with diastolic dysfunction Grade 1, EF 55%. AICD (automatic cardioverter/defibrillator) pres ent 10/02/2018 CKD (chronic kidney disease) 10/02/2018 Hypertension 10/02/2018 Hyperlipidemia 10/02/2018 Depression 10/02/2018 History of CVA (cerebrovascular accident) 2018 Assessment & Plan (07/17/2019 2:52 PM SCUBA DIVE TRAINING INSTRUCTOR): With residual left sided weakness prior to acute cva today. Migraines 10/02/2018 Assessment & Plan (09/26/2019 6:33 PM CDT): Topamax. Assessment & Plan (07/17/2019 2:52 PM SCUBA DIVE TRAINING INSTRUCTOR): On Topamax and Imitrex. Leukocytosis 10/02/2018 Gastrointestinal hemorrhage 10/02/2018 Overview (10/03/2018): Added automatically from request for surgery Depression 09/25/2018 Assessment & Plan (07/11/2020 7:24 PM SCUBA DIVE TRAINING INSTRUCTOR): Remeron and Cymbalta. Musculoskeletal chest pain 09/22/2018 Moderate protein-calorie malnutrition 09/09/2018 AICD (automatic cardioverter/defibrillator) pres ent 09/08/2018 Overview (04/21/2019): Biotronik ICD has followed with [facility] History of atrial fibrillation 09/08/2018 Assessment & Plan (07/11/2020 7:23 PM SCUBA DIVE TRAINING INSTRUCTOR): S/p AICD placement. EKG a-paced. On Xarelto, coreg and asa. Telemetry monitoring. SLE (systemic lupus erythema tosus related syndrome) ([facility]) 09/08/2018 Assessment & Plan (07/11/2020 7:24 PM SCUBA DIVE TRAINING INSTRUCTOR): Prednisone and Naproxen. Assessment & Plan (09/26/2019 6:32 PM CDT): Prn analgesics. Assessment & Plan (07/17/2019 2:58 PM SCUBA DIVE TRAINING INSTRUCTOR): Not in exacerbation. Prn analgesics. History of ventricular tachycardia 09/08/2018 Coronary arteriosclerosis in [place] artery 10/15 Overview (09/06/2016): Coronary artery disease of [place] artery of [place] heart with stable angina pectoris Assessment & Plan (07/11/2020 7:22 PM SCUBA DIVE TRAINING INSTRUCTOR): S/p stenting to RCA, LAD and OM. On ASA, zetia and atorvastatin. Assessment & Plan (09/26/2019 6:28 PM CDT): S/p KEITH to LAD 2012. On ASA and Brilinta. Assessment & Plan (07/17/2019 2:58 PM SCUBA DIVE TRAINING INSTRUCTOR): S/p stenting to LAD 2012. Normally on [...] hypertension Assessment & Plan (07/11/2020 7:23 PM SCUBA DIVE TRAINING INSTRUCTOR): Controled on Aldactone, Nifedipine, Hyzaar, clonidine and coreg. Monitor. Assessment & Plan (09/26/2019 6:28 PM CDT): Stable. On Coreg. Assessment & Plan (07/17/2019 2:50 PM SCUBA DIVE TRAINING INSTRUCTOR): Stable. On five anti-hypertensive's. Will hold d/t hypotension and acute stroke. Monitor closely. Ventricular premature beats 10/16/2015 Overview (09/06/2016): PVCs (premature ventricular contractions) History of stroke 10/16/2015 Overview (09/06/2016): History of stroke Hypercholesterolemia 10/16/2015 Overview (09/06/2016): Hypercholesterolemia Assessment & Plan (09/26/2019 6:29 PM CDT): On statin and zetia. Assessment & Plan (07/17/2019 2:52 PM SCUBA DIVE TRAINING INSTRUCTOR): Zetia. Former smoker 10/16/2015 Overview (09/06/2016): Former smoker Assessment & Plan (07/11/2020 7:26 PM SCUBA DIVE TRAINING INSTRUCTOR): Reports quit 4 years ago. Assessment & Plan (07/17/2019 2:54 PM SCUBA DIVE TRAINING INSTRUCTOR): Quit four years ago. Urinary tract infection 05/16/2015 Hydronephrosis 03/23/2015 Lupus erythematosus 02/28/2015 Malignant neoplasm of urinary bladder 02/28/2015 Fibromyalgia Assessment & Plan (07/11/2020 7:22 PM SCUBA DIVE TRAINING INSTRUCTOR): Gabapentin and prn analgesics. Monitor. Assessment & Plan (07/17/2019 2:59 PM SCUBA DIVE TRAINING INSTRUCTOR): Lyrica. Prn analgesics. Chronic pain syndrome Vasovagal syncope Nausea and vomiting Colitis Encounters Date Type Department Care Team Description 03/01/2025 Orders Only [facility] Cardiology [address] [place] [phone] Lila Argueta MD 02/28/2025 Orders Only [facility] Cardiology [address] [place] [phone] Blair Jin MD 02/16/2025 Orders Only [facility] Cardiology [address] [place] [phone] Samantha Diaz MD 02/12/2025 7:45 PM CDT - 02/12/2025 11:18 PM CDT Emergency [facility] Emergency Department [address] [place] [address] Seth Ann III, MD Fall, initial encounter [...] Medical 2015 bladder cancer, Zahira Diaz.; Comments: PETAR 10/16/2015 - Coronary artery disease Hypertension Migraines Lupus Depression MT (myocardial infarction) (HCC) Cancer (HCC) A-fib (HCC) [...] 02/04/2023 How often do you attend chur or lutheran services? More than 4 times per year 02/04/2023 Do you belong to any clubs o r organizations such as christianity groups, unions, fraternal or athletic groups, or [...] place to sleep or slept in a mcfp (including now)? No 02/04/2023 Personal Safety Answer Date Recorded Have you ever been in or are you currently in a harmful physical or emotional relationship or is someone making you feel afraid or unsafe? Denies 02/12/2025 Comments No Sex and Gender Information Value Date Recorded Sex Assigned at Not on file Legal Sex Female 1:55 AM SCUBA DIVE TRAINING INSTRUCTOR Gender Identity Not on file Sexual Orientation [...] 11/13/2021, 10/05/2018 Colon Cancer Screening-DNA Stool Discontinued 11/14/19, 10/05/2018 Colon Cancer Screening-FIT Discontinued 11/13/2021, Colon Cancer Screening-Sigmoidoscopy Discontinued 11/13/2021, 10/05/2018 Medical Devices Implanted Type Area Educational Resource Coordinator Device Identifier Shelf Expiration Date Model / Serial / Lot Biotech ICD Chest Biotronik [employer] [id number] Angio-Seal Evolution 6fr .035in Guidewire Bypass Tube Suture - [id number] Implanted:Qty: 1 on 01/31/2020 by Robb Wilson MD at [facility] [employer] 07/30/2020 [id number] / / [id number] Procedures Procedure Name Priority Date/Time Associated Diagnosis Comments CARDIOLOGY DOCUMENT SCAN Routine 02/28/2025 12:39 PM CDT CARDIOLOGY DOCUMENT SCAN Routine 02/27/2025 3:31 PM CDT CARDIOLOGY DOCUMENT SCAN Routine 02/26/2025 3:29 PM CDT CARDIOLOGY DOCUMENT SCAN Routine 02/15/2025 3:56 PM CDT CARDIOLOGY DOCUMENT SCAN Routine 02/14/2025 3:[address] HEAD WO CONTRAST ED 02/12/2025 9 [...] 2:19 PM CDT HEPATITIS PANEL, ACUTE Routine 2 3:29 PM CDT from Last 3 Months or Most Recently Relevant to Health Maintenance Results * Cardiology Document Scan (02/28/2025 12:39 PM CDT) Anatomical Region Laterality Modality Other us Lila Argueta MD CV CARDIAC SERVICES PROCEDURES Final Result * Cardiology Document Scan (02/27/2025 3:31 PM CDT) Anatomical Region Laterality Modality Other us Blair Jin MD CV CARDIAC SERVICES PROCEDU RES Final Result * Cardiology Document Scan (02/26/2025 3:29 PM CDT) Anatomical Region Laterality Modality Other Blair Jin MD CV CARDIAC SERVICES PROCEDU RES Final Result * Cardiology Document Scan (02/15/2025 3:56 PM CDT) Anatomical Region Laterality Modality Other Samantha Emily GONZALEZ CV CARDIAC SERVICES PROCEDU RES Final Result * Cardiology Document Scan (02/14/2025 3:55 PM CDT) Anatomical Region Laterality Modality Other Samantha Emily GONZALEZ CV CARDIAC SERVICES PROCEDU RES Final Result * CT Head WO Contrast (02/12/2025 9:32 PM CDT) Anatomical Region Laterality Modality Head and Neck N/A Computed Tomogra phy 02/12/2025 9:30 PM CDT Impressions 02/13/2025 12:42 PM CDT 1. No acute intracranial abnormality. 2. Mild atrophy. 3. Moderate microvascular white matter change. For the purposes of quality control projectionist, this study was initially interpreted by teleradiology. [...] matter change. For the purposes of quality control projectionist, this study was initially interpreted by teleradiology. [...] by: Aaliyah Remy M.D. MD DENAE Lilly III XR PROCEDUR ES Final Result * XR [...] ORDER GLADIS Final Result Performing Organization Address [facility] Co de Phone Number FLORINA MORRO [address] [place] [address] * (ABNORMAL) eGFR (02/12/2025 7:53 [...] ORDERABLES Final Res ult Performing Organization Address City/[facility]/ZIP Co de Phone Number BRIONNANORMA HOOKER [address] [place] [address] * (ABNORMAL) Differential, auto (02/12/2025 7:53 PM CDT) Neutrophil abs 5.37 1.50 - 6.50 K/cumm Imm gran abs 0.02 0.00 - 0.10 K/cumm C[facility]ER [facility] Lymphocyte abs 0.93 0.80 - 3.30 K/cumm [facility] Monocyte abs 0.97(H) 0.20 - 0.80 K/cumm [facility] Eosinophil abs 0.80(H) 0.00 - 0.50 K/cumm [facility] Basophil abs 0.03 0.00 - 0.10 K/cumm CERNER Neutrophil pct 66.1 % [facility]ER [facility] Comment: Interpretive Data Percent cell count reference [...] LAB BLOOD ORDER GLADIS Final Result FLORINA De Los Santos[address] [employer] [place], [place] [id number] * (ABNORMAL) CBC with auto differential (02/12/2025 [...] LAB BLOOD ORDER GLADIS Final Result FLORINA MORRO [address] [place] [address] * (ABNORMAL) Comprehensive metabolic panel (02/12/2025 7:53 [...] LAB BLOOD ORDER GLADIS Final Result FLORINA [address] Department [place] [address] * ECG 12 lead (02/12/2025 7:34 PM CDT) 02/12/2025 7:34 PM CDT Narrative [facility] - 02/13/2025 1:31 PM CDT Vent Rate: 83 bpm RR Interval: 722 msec [place] Interval: 0 msec QRS Duration: 97 msec QT Interval: 392 msec QTC Interval: 431 msec P-R-T [place]: 0 - 37 - 60 degrees IMPRESSION: Sinus rhythm with PACs and PVCs VOLTAGE CRITERIA FOR LVH [MEETS CRITERIA IN ONE OF: R(aVL), S(V1), R(V5), R(V5/V6)+S(V1)] MODERATE ST DEPRESSION [0.05+ mV ST DEPRESSION] ABNORMAL ECG No significant changes compared to February 28, [address]: [address] Lila Argueta [facility] us Seth Ann III, MD ECG ORDERABLES Final Result [facility] [employer] [facility] * COLONOSCOPY (11/13/2021 2:19 PM CDT) Anatomical Region Laterality Modality Other Narrative Procedure Note Renan Espino MD - 11/13/2021 2:19 PM CDT [facility] Endoscopy Lab Patient Name: Teagan Sigala Procedure Date: 11/13/2021 2:19 PM Date of : 1950 Admit Type: Inpatient Age: 71 Gender: Female Note Status: Finalized Attending MD: Renan Espino M.D. Procedure Date: 11/13/2021 Procedure: Colonoscopy Indications: Generalized abdominal pain, , Abnormal CT of the GI tract (colon wall thickening), Providers: Renan Espino M.D., Ned Wesley, RN,Renetta Alcocer, MACHO, Eliu Britton CRNA (Anesthesia Staff), Andrew Henderson, Spa Director/Finance Referring MD: Crystal Zavala Medicines: Monitored Anesthesia [...] not recommended. Procedure Code(s): --- Professional --- 25628, Colonoscopy, flexible; with biopsy, singleor multiple Diagnosis Code(s): --- Professional --- D12.5, Benign neoplasm of sigmoid colon D12.3, Benign neoplasm of transverse colon (hepatic flexure or splenic flexure) K55.20, Angiodysplasia of colon withouthemorrhage R10.84, Generalized abdominal pain K57.30, Diverticulosis of large intestine without perforation or abscess without bleeding R93.3, Abnormal findings on diagnostic imaging of other parts of digestive tract CPT copyright 2020 [employer]. All rights reserved. The codes documented in this report are preliminary and upon social media content manager reviewmay be revised to meet current compliance requirements. Electronically signed by Renan Espino M.D. Renan Espino M.D. 11/13/2021 3:49:19 PM Number of Addenda: 0 Note Initiated On: 11/13/2021 2:19 PM us Renan Espino MD ENDOSCOPY PROCEDURES Fi nal [...] Renan Espino MD LAB MICROBIOLOGY - [facility] ORDERABLES Final Result Performing Organization Address City/State/[facility] Co de Phone Number FLORINA [address] Department [place] [address] from Last 3 Months or Most Recently Relevant to Health Maintenance Insurance IDPA AETNA [facility] MEDICARE AD[facility]ANT[facility] Address: [address] [address] [place] [address] MEDICARE IDPA HOSPICE IDPA [facility] MEDICARE ADVANTAGE [facility] Address: [address] [address] [place] [address] Advance Directives For more information, please contact: [phone] Documents on File Type Date Recorded Patient Asbestos Removal Supervisor Expl anation ADVANCE DIRECTIVE 09/23/2018 9:15 AM BONNY Turcios WILL ADVANCE DIRECTIVE 09/23/2018 9:13 AM POWER OF MEDICAL HOUSEKEEPER-MEDICAL ADVANCE DIRECTIVE 09/23/2018 9:13 AM POWER OF MEDICAL HOUSEKEEPER-MEDICAL * Full Code (Latest Code Status on [...] Maxi العلي Health Care Agent Care Teams Saw Edge Fuser Circular Relationship Specialty [place] [address] [place] [address] PCP - General 09/07/18 Karan Snyder MD Consulting Physician Cardiology 05/19/17 Lilia Gomes MD [address] [place] [address] Consulting Physician Cardiovascular Disease 09/08/18 Mando Acuña MD [address] [place] [address] Consulting Physician Cardiology 10/05/18 Larry Gregory MD [address] [place] [address] Consulting Physician Internal Medicine 07/29/19 Nixon Casey MD [address] [place] [address] Consulting Physician Gastroenterology 09/28/19 [place] [id number] [address] Consulting Physician Gastroenterology 11/13/21
--- OUTSIDE RECORDS SUMMARY | 2025-03-05 14:11 | XMS_ITS | Clinical Summary ---
Author Organization [facility] Address [address] [place] [address] Care Team Providers Care Adzing And Boring Machine Operator Name Role Phone Cm Loaiza APRN-DOUBLE NEEDLE STITCHER Primary Care Provider Source Comments [facility],non-owned Affiliates and Associated Physician Practices is amultiple site organization consisting of ambulatory clinics and hospital sitesin [place], [place], [place] and [place]. This disclosure is being madepursuant to the Care Everywhere program and may not contain all information available regarding this patient. Last updated 18.[facility] [email or web address] Allergies Active Allergy Reactions Criticality Noted Date [...] Recorded Patient Health Questionnaire-2 Score 0 05/02/2024 [facility] [place] of Occupat ional Health - Occupational Stress [...] time in the past 12 m [facility], were you homeless or living in a nursing home (including now)? Patient declined 04/29/2024 Comments No Sex and Gender Information Value Date Recorded Sex Assigned at Not on file Legal Sex Female 6:19 AM PREPARING BOX TENDER Gender Identity Not on file Sexual Orientation Not on file Last Filed Vital Signs Vital Sign Reading Time Taken Comments Blood Pressure 149/60 05/03/2024 7:50 AM PREPARING BOX TENDER Pulse 76 05/03/2024 8:09 AM PREPARING BOX TENDER Temperature 36.7 C (98.1 F) 05/03/2024 7:50 AM PREPARING BOX TENDER Respiratory Rate 18 05/03/2024 8:09 AM PREPARING BOX TENDER Oxygen Saturation 94% 05/03/2024 8:09 AM PREPARING BOX TENDER Inhaled Oxygen Concentration - - Weight 47 kg (103 lb 9.6 oz) 04/28/2024 9:50 PM PREPARING BOX TENDER Height 162.6 cm (5' 4) 04/28/2024 1:58 PM PREPARING BOX TENDER Body Mass Index 17.78 04/28/2024 1:58 PM PREPARING BOX TENDER Plan of Treatment Health Maintenance Due [...] this topic Medical Devices Implanted Type Area Loop Cutter Device Identifier Shelf Expiration Date Model / Serial / Lot Biotronik Iperia 7 Dr-T- 6 Implanted:06/2015 (Quantity not on file) ICD Left: Chest / [id number] / Implant Lead Rv [id number]-1 07/03/2015 Implanted:06/2015 (Quantity not on file) Implant Lead Ventricle Biotronik [id number] / [id number] / Implant [id number] Implanted:06/2015 (Quantity not on file) Implant Lead Atrium Biotronik [id number] / [id number] / Procedures Procedure Name Priority Date/Time Associated [...] CDT Narrative Resulting Agency Comment Performed By [facility] [address] [place] [address] us Nathanael Callejas MD LAB - CHEMISTRY ORDERABLES F inal Result Performing Organization Address City/State/[facility] Co de Phone Number [facility] [address] [place] [address] from Last 3 Months or Most Recently [...] 11:58 AM 09/29/2020 5:54 PM Care Teams Adzing And Boring Machine Operator Relationship Specialty Start Date End Date Cm Loaiza, ERNIE-DOUBLE NEEDLE STITCHER [address] [place] [address] PCP - General Nurse Practitioner 02/09/21
--- OUTSIDE RECORDS SUMMARY | 2025-03-05 14:11 | XMS_ITS ---
Author Organization [facility] [address] Address [address] [place] [address] Care Team Providers Care Water Trainer Name Role Phone Karan Snyder MD Unavailable [phone] Wesley Loaiza Primary Care Provider + Lilia Gomes MD Unavailable Mando Acuña MD Unavailable [phone] Larry Gregory MD Unavailable [phone] Nxion Casey MD Unavailable Renan Espino MD Unavailable [phone] Active Problems Problem Noted Date Diagnosed Date Chest pain, unspecified type 11/29/2023 Intraparenchymal hemorrhage of brain 11/23/2023 Left-sided chest pain 11/11/2023 Small bowel obstruction 02/03/2023 Hypokalemia 11/12/2021 Abdominal pain 11/09/2021 Thoracic back pain 01/10/2021 Toxic metabolic encephalopathy 07/13/2020 COPD (chronic obstructive pulmonary disease) (CM S/HCC) 07/11/2020 Assessment & Plan (07/11/2020 7:26 PM CRM TECHNICAL LEAD): Not in exacerbation. Prn duo-nebs. HCAP (healthcare-associated pneumonia) 0 MARIELA (acute kidney injury) ([facility]) 12/01/2019 Hepatitis 12/01/2019 Multiple skin nodules 12/01/2019 Chest pain 11/30/2019 Overview (12/01/2019): Added automatically from request for surgery [id number] Assessment & Plan (07/11/2020 7:20 PM CRM TECHNICAL LEAD): Suspect fibromyalgia related but need to r/o acs. Troponin levels of 12, 10, continue serial readings. EKG A-paced 71. Pacer interrogated today w/o any events recorded. Cardiology has been consulted for which we appreciate their evaluation and recommendations. Telemetry monitoring. Prn dilaudid. Resumed ranexa, naproxen and asa. Esophageal dysphagia 09/26/2019 Overview (09/27/2019): Added automatically from request for surgery [id number] Severe malnutrition ([facility]) 07/19/2019 Acute CVA (cerebrovascular accident) 07/17/2019 Assessment & Plan (07/17/2019 2:49 PM CRM TECHNICAL LEAD): S/p TPA. CT and CTA as noted [...] evaluation and recommendations. Telemetry monitoring. History of DC (myocardial infarction) 10/02/2018 Chronic CHF ([facility]) 10/02/2018 Assessment & Plan (07/11/2020 7:25 PM CRM TECHNICAL LEAD): Appears compensated. Last echo from 07/2019 with diastolic dysfunction Grade 1, EF 70%. Home medications listed above. Cardiology following. Assessment & Plan (09/26/2019 6:32 PM CDT): S/p AICD placement 2016. Echo 07/2019 with impaired diastolic dysfunction Grade 1 with EF 70%. On ASA, statin, coreg, zetia and prn nitro. Assessment & Plan (07/17/2019 2:50 PM CRM TECHNICAL LEAD): Echo from 08/2018 with diastolic dysfunction Grade 1, EF 55%. AICD (automatic cardioverter/defibrillator) pres ent 10/02/2018 CKD (chronic kidney disease) 10/02/2018 Hypertension 10/02/2018 Hyperlipidemia 10/02/2018 Depression 10/02/2018 History of CVA (cerebrovascular accident) 2018 Assessment & Plan (07/17/2019 2:52 PM CRM TECHNICAL LEAD): With residual left sided weakness prior to acute cva today. Migraines 10/02/2018 Assessment & Plan (09/26/2019 6:33 PM CDT): Topamax. Assessment & Plan (07/17/2019 2:52 PM CRM TECHNICAL LEAD): On Topamax and Imitrex. Leukocytosis 10/02/2018 Gastrointestinal hemorrhage 10/02/2018 Overview (10/03/2018): Added automatically from request for surgery Depression 09/25/2018 Assessment & Plan (07/11/2020 7:24 PM CRM TECHNICAL LEAD): Remeron and Cymbalta. Musculoskeletal chest pain 09/22/2018 Moderate protein-calorie malnutrition 09/09/2018 AICD (automatic cardioverter/defibrillator) pres ent 09/08/2018 Overview (04/21/2019): Biotronik ICD has followed with [facility] History of atrial fibrillation 09/08/2018 Assessment & Plan (07/11/2020 7:23 PM CRM TECHNICAL LEAD): S/p AICD placement. EKG a-paced. On Xarelto, coreg and asa. Telemetry monitoring. SLE (systemic lupus erythema tosus related syndrome) ([facility]) 09/08/2018 Assessment & Plan (07/11/2020 7:24 PM CRM TECHNICAL LEAD): Prednisone and Naproxen. Assessment & Plan (09/26/2019 6:32 PM CDT): Prn analgesics. Assessment & Plan (07/17/2019 2:58 PM CRM TECHNICAL LEAD): Not in exacerbation. Prn analgesics. History of ventricular tachycardia 09/08/2018 Coronary arteriosclerosis in [place] artery 10/15 Overview (09/06/2016): Coronary artery disease of [place] artery of [place] heart with stable angina pectoris Assessment & Plan (07/11/2020 7:22 PM CRM TECHNICAL LEAD): S/p stenting to RCA, LAD and OM. On ASA, zetia and atorvastatin. Assessment & Plan (09/26/2019 6:28 PM CDT): S/p KEITH to LAD 2011. On ASA and Brilinta. Assessment & Plan (07/17/2019 2:58 PM CRM TECHNICAL LEAD): S/p stenting to LAD 2011. Normally on Brilinta and asa. S/p AICD placement. Presence of stent in coronary artery 10/16/2015 Overview (09/06/2016): History of coronary artery stent placement Fatigue 10/16/2015 Overview (09/06/2016): Fatigue, unspecified type NSTEMI (non-ST elevated myocardial infarction) 0 10/16/2015 Overview (09/06/2016): Old DC (myocardial infarction) Angina pectoris 10/16/2015 Overview (09/06/2016): Angina pectoris Hypertension 10/16/2015 Overview (09/06/2016): Resistant hypertension Assessment & Plan (07/11/2020 7:23 PM CRM TECHNICAL LEAD): Controled on Aldactone, Nifedipine, Hyzaar, clonidine and coreg. Monitor. Assessment & Plan (09/26/2019 6:28 PM CDT): Stable. On Coreg. Assessment & Plan (07/17/2019 2:50 PM CRM TECHNICAL LEAD): Stable. On five anti-hypertensive's. Will hold d/t hypotension and acute stroke. Monitor closely. Ventricular premature beats 10/16/2015 Overview (09/06/2016): PVCs (premature ventricular contractions) History of stroke 10/16/2015 Overview (09/06/2016): History of stroke Hypercholesterolemia 10/16/2015 Overview (09/06/2016): Hypercholesterolemia Assessment & Plan (09/26/2019 6:29 PM CDT): On statin and zetia. Assessment & Plan (07/17/2019 2:52 PM CRM TECHNICAL LEAD): Zetia. Former smoker 10/16/2015 Overview (09/06/2016): Former smoker Assessment & Plan (07/11/2020 7:26 PM CRM TECHNICAL LEAD): Reports quit 4 years ago. Assessment & Plan (07/17/2019 2:54 PM CRM TECHNICAL LEAD): Quit four years ago. Urinary tract infection 05/16/2015 Hydronephrosis 03/23/2015 Lupus erythematosus 02/28/2015 Malignant neoplasm of urinary bladder 02/28/2015 Fibromyalgia Assessment & Plan (07/11/2020 7:22 PM CRM TECHNICAL LEAD): Gabapentin and prn analgesics. Monitor. Assessment & Plan (07/17/2019 2:59 PM CRM TECHNICAL LEAD): Lyrica. Prn analgesics. Chronic pain syndrome Vasovagal [...]
--- OUTSIDE RECORDS SUMMARY | 2025-03-05 14:11 | XMS_ITS | Encounter Summary ---
Author Organization [facility] Address [address] [place] [address] Care Team Providers Care Fine Grade Operator Name Role Phone Karan Snyder MD Unavailable Wesley Loaiza Primary Care Provider + Lilia Gomes MD Unavailable Mando Acuña MD Unavailable [phone] Larry Gregory MD Unavailable [phone] Nixon Casey MD Unavailable Renan Espino MD Unavailable Encounter Details Date Type Department Care Team (Late st Contact Info) Description 02/28/2025 Orders Only [facility] Cardiology [address] [place] [address] Blair Jin MD [address] [place] [address] [address] [place] [id number] Social History Tobacco Use Types Packs/Day Years [...] often do you attend chur ch or sabianist services? More than 4 times per year 02/04/2023 Do you belong to any clubs o r organizations such as scientology groups, unions, fraternal or athletic groups, or [...] place to sleep or slept in a snf (including now)? No 02/04/2023 Personal Safety Answer Date Recorded Have you ever been in or are you currently in a harmful physical or emotional relationship or is someone making you feel afraid or unsafe? Denies 02/12/2025 Comments No Sex and Gender Information Value Date Recorded Sex Assigned at Not on file Legal Sex Female 1:55 AM PATIENT ADMITTING REPRESENTATIVE Gender Identity Not on file Sexual Orientation Not on file documented as of this encounter Plan of Treatment Not on file documented as of this encounter Procedures Procedure Name Priority Date/Time Associated Diagnosis Comments CARDIOLOGY DOCUMENT SCAN Routine 02/27/2025 3:31 PM CDT CARDIOLOGY DOCUMENT SCAN Routine 02/26/2025 3:29 PM CDT documented in this encounter Results * Cardiology Document Scan (02/27/2025 3:31 PM CDT) Anatomical Region Laterality Modality Other Blair Jin MD [facility] CARDIAC SERVICES PROCEDU RES Final Result * Cardiology Document Scan (02/26/2025 3:29 PM CDT) Anatomical Region Laterality Modality Other Blair Jin MD CV CARDIAC SERVICES PROCEDU RES Final Result documented in this encounter Visit Diagnoses Not on filedocumented in this encounter Care Teams Fine Grade Operator Relationship Specialty Start Date End Date Wesley Loaiza PA [address] [place] [id number] PCP - General 09/07/18 Karan Snyder MD Consulting Physician Cardiology 05/19/17 Lilia Gomes MD [address] [place] [address] Consulting Physician Cardiovascular Disease 09/08/18 Mando Acuña MD [address] [place] [id number] Consulting Physician Cardiology 10/05/18 Larry Gregory MD [address] [place] [address] [id number] Consulting Physician Internal Medicine 07/29/19 Nixon Casey MD [address] [place] [id number] Consulting Physician Gastroenterology 09/28/19 [place] [id number] [address] Consulting Physician Gastroenterology 11/13/21 documented as of this encounter
--- OUTSIDE RECORDS SUMMARY | 2025-03-05 14:12 | XMS_ITS | Data Portability ---
Author Organization [place] [facility], Main Office Address [address] [place] [address] Assessment Encounter Date Assessment Date Assessment LastModified by Organization Details LastModified Time 07/28/2023 07/28/2023 I have reconciled the patient's medications post their discharge from inpatient facility. [email or web address] Not available 07/28/2023 09:48:26 Plan of Treatment Reminders Order Date Submit Date Provider Last Modified By Organization Details Last Modified Time Details Appointments None recorded. Lab None recorded. Referral home health referral - needs physical therapy in home . 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 2023 024 [email or web address] [facility], [address] [place], [address], 4 10:26:50 cardiologis t referral - angina recurring in to left arm , has gone to ED twice , recent cva affecting left side this time . started clopidigrel and 81mg aspirin . Please call patient to schedule an appointment . 2023 024 [email or web address] Lilia Gomes MD, [address] [facility], [address], [place], [address], 4 08:56:22 cardiologis t referral - 2 heart ataacks last one 6 months ago , defibrillat or in situ 2022 023 [email or web address] [place], [address], [address], [place], [address], 3 18:40:50 Procedures None recorded. Surgeries None recorded. Imaging None recorded. Medication Orders amlodipine 5 mg tablet 2023 024 [facility]/Pharmacy #[id number], [address], [place], [address], 4 13:04:02 losartan 100 mg tablet 2023 024 [facility]/Pharmacy #[id number], [address], [place], [address], 4 13:04:03 aspirin 81 mg tablet,abelardo yed release 2023 024 [facility]/Pharmacy #60158, [address], [place], [address], 4 13:04:03 clopidogrel 75 mg tablet 2023 024 [facility]/Pharmacy #79472, [address], [place], [address], 4 13:04:00 nortriptyli ne 10 mg capsule 2023 024 [facility]/Pharmacy #61628, [address], [place], [address], 4 13:04:02 trazodone 100 mg tablet 2023 024 [facility]/Pharmacy #16146, [address], [place], [address], 4 13:05:06 prednisone 20 mg tablet 2023 024 [facility]/Pharmacy #22304, [address], [place], [address], 4 13:04:03 pantoprazol e 40 mg tablet,abelardo yed release 2023 024 [facility]/Pharmacy #98585, [address], [place], [address], 4 13:04:01 Ventolin HFA 90 mcg/actuati on aerosol inhaler 2023 024 [facility], [address], [place], [address], 4 13:04:01 Symbicort 160 mcg-4.5 mcg/actuati on HFA aerosol inhaler 2023 024 [email or web address] [address] [facility]/Pharmacy #04409, [address], [place], [address], 4 15:28:15 ondansetron 4 mg disintegrat ing tablet 2023 024 [facility], [address], [place], [address], 4 13:04:01 nitroglycer in 0.4 mg sublingual tablet 2023 024 [facility], [address], [place], [address], 4 13:04:01 Depo-Medrol 80 mg/mL suspension for injection 2023 024 [email or web address] Not available 4 13:12:47 duloxetine 60 mg capsule,del ayed release 2023 024 [facility]/Pharmacy #52722, [address], [place], [address], 4 13:04:02 gabapentin 800 mg tablet 2023 024 [facility]/Pharmacy #54487, [address], [place], [address], 4 13:04:02 oxycodone-a cetaminophe n 7.5 mg-325 mg tablet 2023 024 [facility]/Pharmacy #65901, [address], [place], [address], 4 13:04:04 prednisone 10 mg tablet 2023 024 [facility]/Pharmacy #86568, [address] [place], [address], 4 13:04:03 clopidogrel 75 mg tablet [email or web address]/Pharmacy #42954, [address] [place], [address], 4 10:36:50 aspirin 81 mg tablet,abelardo yed release [address]/Pharmacy #49644, [address] [place], [address], 4 10:36:50 nortriptyli ne 10 mg capsule [address]/Pharmacy #85933, [address] [place], [address], 4 10:36:50 albuterol sulfate 2.5 mg/3 mL (0.083 %) solution for nebulizatio n [email or web address]/Pharmacy #39743, [address] [place], [address], 4 10:36:49 nitroglycer in 0.4 mg sublingual tablet [email or web address]/Pharmacy #29576, [address] [place], [address], 4 10:36:49 tizanidine 4 mg tablet 2023 024 [email or web address] 200 [facility] #01743, [address], [place], [address], 4 10:36:50 Nurtec ODT 75 mg disintegrat ing tablet 2023 024 [email or web address]/Pharmacy #85043, [address], [place], [address], 4 10:36:49 prednisone 10 mg tablet 2023 024 [facility] #86457, [address], [place], [address], 4 10:36:49 gabapentin 800 mg tablet 2023 024 [facility] 200 [facility]/Pharmacy #34267, [address], [place], [address], 4 10:36:49 oxycodone-a cetaminophe n 7.5 mg-325 mg tablet 2023 024 [facility] 200 [facility]/Pharmacy #68499, [address], [place], [address], 4 10:36:49 Depo-Medrol 80 mg/mL suspension for injection 2023 024 [email or web address] 200 Not available 4 10:36:50 ondansetron 4 mg disintegrat ing tablet 2022 023 [facility] #51089, [address], [place], [place], [id number], 3 15:08:43 clonazepam 0.5 mg tablet 2022 023 [facility] #36726, [address], [place], [place], [id number], 3 15:10:05 Depo-Medrol 80 mg/mL suspension for injection 2022 023 [email or web address] 11 Not available 3 15:34:14 oxycodone-a cetaminophe n 7.5 mg-325 mg tablet 2022 023 [facility] #61350, [address], [place], [place], [id number], 3 15:13:38 trazodone 100 mg tablet 2022 023 [facility] #42098, [address], [id number], 3 15:17:23 tizanidine 4 mg tablet 2022 023 [facility] #98619, [address], [id number], 3 15:14:34 Ventolin HFA 90 mcg/actuati on aerosol inhaler 2022 023 [facility] #74375, [address], [place], [place], [id number], 3 15:06:41 Symbicort 160 mcg-4.5 mcg/actuati on HFA aerosol inhaler 2022 023 [facility] #29609, [address], [place], [place], [id number], 3 15:06:42 albuterol sulfate 2.5 mg/3 mL (0.083 %) solution for nebulizatio n 2022 023 [facility] #32715, [address], [id number], 3 15:13:18 gabapentin 800 mg tablet 2022 023 [facility] #91704, [address], [place], [place], [id number], 3 15:09:20 hydrocodone 7.5 mg-acetamin ophen 325 mg tablet [address] [facility] #55861, [address], [place], [place], [id number], 3 14:38:41 Depo-Medrol 80 mg/mL suspension for injection 2022 023 [email or web address] 11 Not available 15:36:12 amlodipine 5 mg tablet [address] [facility] #53470, [address], [place], [place], [id number], 3 14:52:13 losartan 100 mg tablet [address] [facility] #13948, [address], [place], [place], [id number], 3 14:52:13 pantoprazol e 40 mg tablet,abelardo yed release [address] [facility] #74691, [address], [place], [place], [id number], 3 14:52:13 hydroxyzine HCl 10 mg tablet [address] [facility] #57788, [address], [place], [place], [id number], 3 14:52:13 Ventolin HFA 90 mcg/actuati on aerosol inhaler [address] [facility] #55064, [address], [place], [place], [id number], 3 14:52:12 Symbicort 160 mcg-4.5 mcg/actuati on HFA aerosol inhaler [address] [facility] #78463, [address], [place], [place], [id number], 3 14:52:13 prednisone 20 mg tablet [address] [facility] #80722, [address], [place], [place], [id number], 3 14:52:13 nitroglycer in 0.4 mg sublingual tablet [address] [facility] #08881, [address], [place], [place], [id number], 3 14:52:13 ondansetron 4 mg disintegrat ing tablet [address] [facility] #84814, [address], [place], [place], [id number], 3 14:52:12 tizanidine 4 mg tablet [address] [facility] #87949, [address], [place], [place], [id number], 3 14:52:12 Depo-Medrol 80 mg/mL suspension for injection 2022 023 [email or web address] Not available 3 14:52:12 triamcinolo ne acetonide 0.5 % topical ointment 2022 023 [place] 200 [facility] #22019, [address], [place], [place], [id number], 3 14:52:12 Benadryl Allergy 25 mg tablet 2022 023 [place] 200 [facility] #50762, [address], [place], [place], [id number], 3 14:52:13 gabapentin 300 mg capsule 2022 023 [email or web address] 2 [facility] #96194, [address], [place], [place], [id number], 4 15:30:26 hydrocodone 7.5 mg-acetamin ophen 325 mg tablet 2022 023 [email or web address] 200 [facility] #64567, [address], [place], [place], [id number], 3 14:38:41 Patient TargetsNo targets recorded. Patient Instructions Encounter Date Encounter Id Patient Instructions Last Modified By Organization Details Last Modified Time 03/31/2023 [id number] it is the anniversary of her husbands 14 years ago ........no si/hi. Continue Lorene [employer] , write out thoughts .....get a counselor [email or web address] Not available 04/01/2023 11:19:32 07/28/2023 [id number] Thank you for your visit to our office today. We would like to request that you reach out to your referring or previous provider and request that they send us a Summary of Care in electronic form, so that we may have it on file in your medical record. At your visit, we had the medical records we needed to provide you with the best possible care; however, for insurance purposes, an electronic Summary of Care is beneficial. Thank you for your assistance in obtaining this information and we look forward to providing continued care to you. Please review your medication list from the Summary of Care for this visit. If there are any differences from what you are currently taking at home, please call us to discuss. [email or web address] Not available 07/28/2023 09:48:26 Homebound Status : Required Home Health Services: Durable Medical Equipment needed: Billing Guidelines CPT code 70387- Transitional Care Management services with moderate medical decision complexity (dpkg-zi-jkvv visit within 14 days of discharge). CPT code 68279- Transitional Care Management services with high medical decision complexity (aiji-ol-ewyc visit within 7 days of discharge). [email or web address] Not available 07/28/2023 09:48:26 02/18/2024 [id number] she will try to do neb treatments at a friend's house . recheck BP at home , always normal there [email or web address] Not available 03/07/2024 15:31:32 Reason for Referral Multineedle Shirrer Referral for An haylee pectoris 2 heart ataacks last one 6 months ago , defibrillator in situ Referring Physician: [facility], Encounter Date: 12/04/2022 Home Health Referral for Cer ebrovascular accident physical therapy strengthening and flexibility needs physical therapy in home . CVA affecting left side this time Please call patient to schedule an appointment. Referring Physician: [facility], Encounter Date: 07/28/2023 Multineedle Shirrer Referral for An haylee pectoris angina recurring in to left arm , has gone to ED twice , recent cva affecting left side this time . started clopidigrel and 81mg aspirin . Please call patient to schedule an appointment. Referring Physician: [facility], Encounter Date: 07/28/2023 Results Created Date Observation Date Name Description Value Unit Range Abnormal Flag Note LastModifiedBy Organization Detail LastModifiedTime 03/24/20 24 03/13/2024 XR, chest , 2 view No observ ation record ed. [email or web address] Helen () [address] [place], [address], 03/25/2024 11:31:01 05/07/20 24 05/07/2024 XR, chest , 2 view No observ ation record ed. [email or web address] [facility] [address], [place], [address], 05/10/2024 10:05:44 05/07/20 24 05/07/2024 CT, angio gram, chest , w/ contr ast No observ ation record ed. [address], [place], [address], 05/10/2024 10:33:41 05/12/20 24 05/12/2024 XR, chest No observ ation record ed. [address], [place], [address], 05/21/2024 09:33:36 05/12/20 24 05/12/2024 CT, brain , w/ contr ast No observ ation record ed. [address], [place], [address], 05/21/2024 09:31:57 05/29/20 24 05/28/2024 XR, chest , 2 view No observ ation record ed. [address] Radiology [facility] [address], [place], [address], 06/01/2024 12:41:54 06/09/19 25 06/09/2024 XR, chest , 2 view No observ ation record ed. [address] [place], [address], 06/09/2024 14:40:53 02/15/20 25 02/14/2025 NM, lung scan No observ ation record ed. [address], [place], [address], 02/16/2025 12:18:57 02/15/20 25 02/14/2025 CT, abdom en + pelvi s, w/o contr ast No observ ation record ed. [address], [place], [address], 02/16/2025 12:19:26 02/16/20 25 02/15/2025 XR, chest , 1 view No observ ation record ed. [address], [place], [address], 02/16/2025 12:18:25 03/02/2003/01/2025 CT, head + orbit s, w/ contr ast No observ ation record ed. [address], [place], [address], 03/02/2025 10:19:59 03/02/2003/02/2025 CT, brain , w/o contr ast No observ ation record ed. [address], [place], [address], 03/02/2025 15:33:50 Result Notes None recorded. Problems Name Problem SNOMED Code Status Onset Date Resolution Date Notes Provider Name and Address Organization Details Recorded Time Cerebrovascula r accident 659198174 Active ROXANNE Howard, [facility] 12:29:02 Headache 11126673 Active ROXANNE Howard, [facility] 12:29:27 Blood in urine 39066716 Active ROXANNE Howard, [facility] 12:28:43 Depressive disorder 81691068 Active ROXANNE Howard, [facility] 12:29:12 Hypertensive disorder 95826271 Active ROXANNE Howard, [facility] 12:29:44 Systemic lupus erythematosus 56877808 Active ROXANNE Howard, [facility] 3 12:30:15 Flea bites Active 2022 ROXANNE Howard, [facility] 12:29:15 Nausea 582481410 Active 2022 Lisa Phillips MA null, [place] [facility] 3 12:29:57 Neuropathy 875361236 Active 2022 Lisa Phillips MA null, [place] [facility] 3 12:30:02 Chronic obstructive pulmonary disease 69311075 Active 2022 Lisa Phillips MA null, [place] [facility] 3 12:29:07 Spasm of back muscles 491499758 Active 2022 Lisa Phillips MA null, [place] [facility] 3 12:30:09 Angina pectoris 556088985 Active 2022 Lisa Phillips MA null, [place] [facility] 3 12:28:27 Gastroesophage al reflux disease 734435791 Active 2022 Lisa Phillips MA null, [place] [facility] [place] [facility] 3 12:29:21 Anxiety 97929428 Active 2022 Lisa Phillips MA null, [place] [facility] 3 12:28:37 Hemorrhoids 21681705 Active 2022 VALENTIN Chandler [address], [address] , [facility] 3 16:39:55 Insomnia 100142133 Active 2022 Lisa Phillips MA null, [place] [facility] 3 12:29:48 Migraine 80295404 Active 2022 Lisa Phillips MA null, [place] [facility] 3 12:29:53 Administration of influenza vaccine Active 2022 VALENTIN Chandler [address], [address] , [facility] 3 15:11:03 Pain of multiple joints 70284552 Active 2023 Mj Smith RN null, [place] [facility] 4 09:33:49 Lower back injury 285396851 Active 2023 VALENTIN Chandler [address] [facility], [facility] [address], [place], [address] [facility] [employer] 4 09:31:01 Notes:Some problems listed i n Documents: #[id number], #[id number] could not be added to this patient's chart. Please review these documents and add these problems to the patient's chart manually as needed. Problem Notes None recorded. Procedures Surgical History Date Name Laterality Status Provider Name and Address Organization Details Recorded Time 07/28/2023 Transition al_[facility]_Or nagement completed Bre Walker MA [employer] 07/28/2023 09:48:26 Imaging Results None recorded. Procedure Notes None recorded. Medical Equipment None Reported. Allergies Allergen ID Allergen Name Allergen Category Reaction Reaction Severity Criticality Documentation Date Start Date Code Code System Note Provider Name and Address Organization Details Recorded Time 30627 Substance with sulfonami de structure and antibacte rial mechanism of action (substanc e) medicatio n Not available Not available Not available 03/03/2023 89189 8003 SNOMED ROXANNE Mcgee [employer] [facility] [employer] 3 14:51:36 54822 Product containin g penicilli n (product) medicatio n Not available Not available Not available 03/03/2023 32781 8001 SNOMED ROXANNE Mcgee [employer] [facility] [employer] 3 14:51:46 Medications Name Sig Start Date Stop Date Status Note LastModified by Organization Details LastModified Time cyclobenz aprine 10 mg tablet TAKE 1/2 TO 1 TABLET BY MOUTH TWICE DAILY active Not Available Not Available No t Available fluconazo le 100 mg tablet 08/26 completed Not Available Not Available Not Available atorvasta tin 40 mg tablet active Not Available Not Available Not Available methocarb aaliyah 500 mg tablet TAKE ONE TABLET BY MOUTH FOUR TIMES DAILY NEEDED FOR MUSCLE SPASMS 01/22 completed Not Available Not Available Not Available carvedilo l 6.25 mg tablet 02/17 completed Not Available Not Available Not Available prednison e 10 mg tablet TAKE 1 TABLET BY MOUTH EVERY DAY IN THE MORNING active Not Available Not Available No t Available gabapenti n 600 mg tablet TAKE TWO TABLETS BY MOUTH THREE TIMES DAILY FOR PAIN MANAGEME NT 11/02 completed Not Available Not Available Not Available carvedilo l 12.5 mg tablet 02/17 completed Not Available Not Available Not Available albuterol sulfate 2.5 mg/3 mL (0.083 %) solution for nebulizat ion INHALE 3 ML BY NEBULIZA TION 3 TIMES A DAY active Not Available Not Available No t Available lisinopri l 20 mg-hydroc hlorothia zide 12.5 mg tablet active Not Available Not Available No t Available azithromy arvin 250 mg tablet 08/26 completed Not Available Not Available Not Available lidocaine 5 % topical cream APPLY AND RUB INTO FEET TWICE DAILY FOR 30 DAYS active Not Available Not Available No t Available alprazola m 1 mg tablet 03/31 completed Not Available Not Available Not Available tizanidin e 4 mg tablet Take 1 tablet 4 times a day by oral route as needed for 30 days. active Not Available Not Available No t Available sumatript an 100 mg tablet TAKE ONE TABLET BY MOUTH AT ONSET OF HEADACHE MAY REPEAT IN TWO HOURS NOT TO EXCEED TWO TABLETS IN 24 HOURS active Not Available Not Available No t Available hydrocodo ne 5 mg-acetam inophen 325 mg tablet 01/22 completed Not Available Not Available Not Available senna 8.6 mg tablet TAKE 1 TABLET BY MOUTH TWICE DAILY FOR CONSTIPA TION active Not Available Not Available No t Available prochlorp erazine maleate 5 mg tablet 08/26 completed Not Available Not Available Not Available sucralfat e 1 gram tablet TAKE ONE TABLET BY MOUTH FOUR TIMES DAILY active Not Available Not Available No t Available ondansetr on HCl 4 mg tablet take ONE tablet ON THE TONGUE EVERY 6 HOURS NEEDED FOR NAUSEA OR FOR VOMITING 08/26 completed Not Available Not Available Not Available prednison e 20 mg tablet Take 2 tabs PO twice daily for 2 days; 1 tab PO twice daily for 5 days; 1/2 tab PO twice daily for 2 days; 1/2 tab PO once for 1 day. TAKE 2ND DOSE EVERYDAY AT NOON-10 DAY COURSE active Not Available Not Available No t Available clonazepa m 0.5 mg tablet Take 1 tablet twice a day by oral route as needed for 30 days. 2023 active Not Available Not Available Not Avai lable sertralin e 100 mg tablet active Not Available Not Available Not Available prednison e 5 mg tablet TAKE 3 TABLETS BY MOUTH EVERY DAY IN THE MORNING active Not Available Not Available No t Available triamcino lone acetonide 0.5 % topical ointment APPLY A THIN LAYER TO THE AFFECTED AREA(S) BY TOPICAL ROUTE 2 TIMES PER DAY 2022 active Not Available Not Available Not Avai lable clopidogr el 75 mg tablet TAKE 1 TABLET BY MOUTH EVERY DAY IN THE MORNING 2024 active Not Available Not Available Not Avai lable amlodipin e 5 mg tablet TAKE 1 TABLET BY MOUTH EVERY DAY IN THE MORNING active Not Available Not Available No t Available ciproflox acin 500 mg tablet Take 1 tablet every 12 hours by oral route for 2 days. 02/17 completed Not Available Not Available Not Available hydrocodo ne 10 mg-acetam inophen 325 mg tablet TAKE 1 TABLET BY MOUTH EVERY 6 HOURS NEEDED FOR PAIN 03/13 completed not helping , will try oxycodon e Not Available Not Available Not Available aspirin 81 mg tablet,de layed release Take 1 tablet every day by oral route in the morning for 30 days. 2023 active Not Available Not Available Not Avai lable tramadol 50 mg tablet 08/26 completed Not Available Not Available Not Available spironola ctone 25 mg tablet TAKE ONE TABLET BY MOUTH EVERY DAY AFTER A MEAL FOR FLUID RETENTIO N active Not Available Not Available No t Available carvedilo l 3.125 mg tablet 02/17 completed Not Available Not Available Not Available Depo-Medr ol 80 mg/mL suspensio n for injection Take 1 mL by injectio n route. 2023 active Not Available Not Available Not Avai lable meloxicam 7.5 mg tablet TK 1 T PO ONCE D 08/26 completed Not Available Not Available Not Available oxycodone -acetamin ophen 5 mg-325 mg tablet 08/26 completed Not Available Not Available Not Available hydrocort isone 2.5 % topical cream with perineal applicato r APPLY A THIN LAYER TO THE AFFECTED AREA(S) BY TOPICAL ROUTE 2-4 TIMESDAI LY active Not Available Not Available No t Available hydromorp melonie 2 mg tablet TAKE 1 TABLET BY MOUTH EVERY 6 HOURS NEEDED FOR PAIN 09/03 completed Not Available Not Available Not Available citalopra m 20 mg tablet 08/26 completed Not Available Not Available Not [...] HOURS FORNAUSE A AND VOMITING OR ANXIETY 08/26 completed Not Available Not Available Not Available gabapenti n 800 mg tablet Take 1 tablet 3 times a day by oral route for 30 days. 2023 active Not Available Not Available Not Avai lable trazodone 100 mg tablet TAKE 1 TABLET BY MOUTH EVERY DAY AT BEDTIME FOR 30 DAYS 2024 active Not Available Not Available Not Avai lable amlodipin e 10 mg tablet TAKE ONE TABLET BY MOUTH EVERY MORNING FOR BLOOD PRESSURE 08/26 completed Not Available Not Available Not Available hydrocodo ne 7.5 mg-acetam inophen 325 mg tablet TAKE 1 TABLET BY MOUTH TWICE DAILY NEEDED 03/13 completed not helping , will try oxycodon e Not Available Not Available Not Available pantopraz ole 40 mg tablet,de layed release Take 1 tablet every day by oral route before meals for 30 days. 2023 active Not Available Not Available Not Avai lable nortripty line 10 mg capsule Take 2 capsules every day by oral route at bedtime for 30 days. 2023 active Not Available Not Available Not Avai lable Banophen 25 mg tablet TAKE 1 TABLET BY MOUTH EVERY DAY AT BEDTIME active Not Available Not Available No t Available nitroglyc anastasiya 0.4 mg sublingua l tablet PLACE 1 TABLET NEEDED BY SUBLINGU AL ROUTE NEEDED FOR 30 DAYS. active Not Available Not Available No t Available docusate sodium 100 mg capsule TAKE ONE CAPSULE BY MOUTH TWICE DAILY FOR CONSTIPA TION active Not Available Not Available No t Available gabapenti n 300 mg capsule 1 cap po at bedtime for 7 days , 1 cap twice daily for 7 days , 1 cap three times daily 1 cap am , 1 caat noon 2 caps at bedtime for 7days , 1 cap am , 2 caps at noon 2 caps at bedtime for 7days , 2 caps three times daily . and maintain active Not Available Not Available No t Available sertralin e 25 mg tablet active Not Available Not Available Not Available hydrochlo rothiazid e 25 mg tablet active Not Available Not Available Not Available mirtazapi ne 15 mg tablet TAKE ONE TABLET BY MOUTH AT BEDTIME active Not Available Not Available No t Available gabapenti n 100 mg capsule TAKE ONE CAPSULE EVERY MORNING AND TAKE TWO CAPSULES EVERY NIGHT AT BEDTIME active Not Available Not Available No t Available levofloxa arvin 500 mg tablet TAKE 1 TABLET BY MOUTH DAILY FOR SKIN INFECTIO N active Not Available Not Available No t Available oxycodone -acetamin ophen 7.5 mg-325 mg tablet TAKE 1 TABLET BY MOUTH TWICE A DAY NEEDED active Not Available Not Available No t Available methylpre dnisolone 4 mg tablets in a dose pack 08/26 completed Not Available Not Available Not Available albuterol sulfate HFA 90 mcg/actua tion aerosol inhaler INHALE 2 PUFFS EVERY 8 HOURS BY INHALATI ON ROUTE NEEDED FOR 30 DAYS. active Not Available Not Available No t Available propranol ol 20 mg tablet 08/26 completed Not Available Not Available Not Available Cipro 250 mg tablet Take 1 tablet every 12 hours by oral route for 2 days. 08/26 completed Not Available Not Available Not Available morphine 15 mg immediate release tablet TAKE 1/2 TABLET BY MOUTH EVERY 4 HOURS NEEDED FOR PAIN 08/26 completed Not Available Not Available Not Available hydroxyzi ne HCl 10 mg tablet TAKE 1 TO 2 TABLETS BY MOUTH 3 TIMES DAILY NEEDED active Not Available Not Available No t Available lisinopri l 40 mg tablet active Not Available Not Available Not Available ondansetr on 4 mg disintegr ating tablet DISSOLVE 1 TABLET ON THE TONGUE 3 TIMES DAILY NEEDED active Not Available Not Available No t Available losartan 100 mg tablet Take 1 tablet every day by oral route in the morning for 30 days. 2023 active Not Available Not Available Not Avai lable fluoxetin e 20 mg capsule 08/26 completed Not Available Not Available Not Available sertralin e 50 mg tablet active Not Available Not Available Not Available dicyclomi ne 10 mg capsule TAKE ONE CAPSULE BY MOUTH FOUR TIMES DAILY BEFORE MEALS active Not Available Not Available No t Available naproxen 500 mg tablet TAKE ONE TABLET BY MOUTH TWICE DAILY WITH MEALS FOR PAIN active Not Available Not Available No t Available escitalop janie 10 mg tablet TAKE ONE TABLET BY MOUTH EVERY DAY 08/26 completed Not Available Not Available Not Available duloxetin e 30 mg capsule,d elayed release TAKE 1 CAPSULE BY MOUTH EVERY DAY FOR 7 DAYS active Not Available Not Available No t Available duloxetin e 60 mg capsule,d elayed release TAKE 1 CAPSULE BY MOUTH EVERY DAY IN THE MORNING 2024 active Not Available Not Available Not Avai lable Ranexa 500 mg tablet,ex tended release active Not Available Not Available Not Available aripipraz ole 2 mg tablet TAKE ONE TABLET BY MOUTH EVERY EVENING active Not Available Not Available No t Available Symbicort 160 mcg-4.5 mcg/actua tion HFA aerosol inhaler Inhale 2 puffs twice a day by inhalati on route for 30 days. 2023 active Not Available Not Available Not Avmoraima lable Dulera 200 mcg-5 mcg/actua tion HFA aerosol inhaler active Not Available Not Available Not Available Aerochamb er Plus Flow-Vu USE with inhaler active Not Available Not Available No t Available Brilinta 90 mg tablet 08/26 completed Not Available Not Available Not Available Linzess 145 mcg capsule TAKE ONE CAPSULE BY MOUTH EVERY DAY FOR CONSTIPA TION active Not Available Not Available No t Available Eliquis 2.5 mg tablet TAKE 1 TABLET BY MOUTH TWICE A DAY active Not Available Not Available No t Available Wixela Inhub 250 mcg-50 mcg/dose powder for inhalatio n Inhale 1 puff twice a day by inhalati on route for 30 days. 2023 active Not Available Not Available Not Avai labda Nurtec ODT 75 mg disintegr ating tablet TAKE 1 TABLET BY MOUTH DAILY NEEDED FOR 8 DAYS active Not Available Not Available No t Available Vitals Date Recorded Body height Body mass index (BMI) Body weight Body temperature Heart rate Oxygen saturation Oxygen saturation in Arterial blood by Pulse oximetry Systolic And Diastolic Provider Name and Address Organization Details Last Updated DateTime 4 165.1 cm 18.8 kg/m2 28900.9 4 g 97.6 [degF] 108 /min 96 % 96 % 150/66 mm[Hg] Bre Walker MA [facility] [employer] [facility] 4 09:54:33 Date Recorded Body height Body mass index (BMI) Body weight Body temperature Heart rate Oxygen saturation Oxygen saturation in Arterial blood by Pulse oximetry Systolic And Diastolic Provider Name and Address Organization Details Last Updated DateTime 3 165.1 cm 15.9 kg/m2 40343.6 8 g 97.7 [degF] 77 /min 97 % 97 % 166/90 mm[Hg] Bre Walker MA [facility] [employer] [facility] 3 16:52:03 Date Recorded Body height Body mass index (BMI) Body weight Body temperature Heart rate Oxygen saturation Oxygen saturation in Arterial blood by Pulse oximetry Respiratory rate Systolic And Diastolic Provider Name and Address Organization Details Last Updated DateTime 4 165.1 cm 17.5 kg/m2 11275.2 g 99 [degF] 90 /min 100 % 100 % 18 /min 176/90 mm[Hg] Linda Mueller RN [facility] [employer] [facility] 4 12:36:07 Date Recorded Body height Body mass index (BMI) Body weight Body temperature Heart rate Oxygen saturation Oxygen saturation in Arterial blood by Pulse oximetry Systolic And Diastolic Provider Name and Address Organization Details Last Updated DateTime 3 165.1 cm 17.2 kg/m2 99542.4 1 g 98.1 [degF] 77 /min 98 % 98 % 156/72 mm[Hg] Bre Walker MA [facility] [employer] [facility] 3 14:51:19 Date Recorded Body height Body mass index (BMI) Body weight Body temperature Heart rate Oxygen saturation Oxygen saturation in Arterial blood by Pulse oximetry Systolic And Diastolic Provider Name and Address Organization Details Last Updated DateTime 3 165.1 cm 16.8 kg/m2 84048.8 3 g 97.7 [degF] 92 /min 96 % 96 % 138/74 mm[Hg] Bre Walker MA [facility] [employer] [facility] 3 14:58:09 Social History None recorded. Functional Status None recorded. Mental Status None recorded. Family History Nothing Reported. Medical History No medical history recorded. Gynecological HistoryNo gynecological history recorded. Obstetrics History GPAL:G 0 P 0 0 0 0 Immunizations Vaccine Type Date Status Note Provider Nam e and Address Organization Details Recorded Time Influenza, high-dose, quadrivalent, PF 03/31/2023 completed ROXANNE Mcgee [place] - [facility] [employer] 03/31/2023 16:12:56 Past Encounters Encounter ID Performer Location Encounter Start Date Encounter Closed Date Diagnosis/Indication Diagnosis SNOMED-CT Code Diagnosis ICD10 Code Diagnosis IMO Codes Diagnosis Note [id number] Sanjuana Blevins MD [facility] Chelsey fajardo [address] [place] [address] [place] [address] 12/04/2022 16:38:21 12/06/2022 09:35:00 Flea bites 046722217 W57.XXXA Systemic l upus erythematosus 87341702 M32.9 Nausea 564752660 R11.0 Hypertensive disorder 38 180095 I10 Cerebrovas cular accident 801856238 I63.9 Neuropathy 092306110 G62 .9 Chronic ob structive pulmonary disease 11978398 J44.9 Spasm of back muscles 20 0262034 M62.830 Angina pectoris 83189814 0 I20.9 Gastroesop hageal reflux disease 420381855 K21.9 Anxiety 87820035 F41.9 [id number] Sanjuana Blevins MD [facility] Chelsey fajardo [address] [place] [address] [place] [address] 03/03/2023 14:39:48 03/03/2023 15:32:16 Chronic obstructive pulmonary disease 48354397 J44.9 Neuropathy 423975031 G62 .9 Spasm of back muscles 20 6878976 M62.830 Insomnia 330944643 G47.0 0 [id number] Sanjuana Blevins MD [facility] Dora tana Replaced by [facility] [place] [address] 03/31/2023 14:43:25 03/31/2023 15:31:31 Nausea 691239615 R11.0 Anxiety 74159547 F41.9 Administra tion of influenza vaccine 50429211 Z23 Neuropathy 453650761 G62 .9 [id number] Sanjuana Blevins MD [address] [place] [address] 07/28/2023 09:46:56 07/28/2023 10:26:57 Transition of care 9974237978 105 Z75.8 Angina pectoris 20343977 0 I20.9 Neuropathy 895406719 G62 .9 Migraine 46163369 G43.90 9 Cerebrovas cular accident 218184504 I63.9 affecting left side Chronic ob structive pulmonary disease 92918335 J44.9 Insomnia 074315455 G47.0 0 Spasm of back muscles 20 8137148 M62.830 Anxiety 37275764 F41.9 Depressive disorder 3548 9007 F32.A Gastroesop hageal reflux disease 919785003 K21.9 Pain of mu ltiple joints 71066260 M25.50 [id number] Dimas Coe MD [address] [place] [address] 02/18/2024 12:11:55 02/18/2024 13:35:35 Chronic obstructive pulmonary disease 45165396 J44.9 Hypertensive disorder 38 131333 I10 Cerebrovas cular accident 887016796 I63.9 affecting left side Neuropathy 536943477 G62 .9 Angina pectoris 24588489 0 I20.9 Insomnia 825783325 G47.0 0 Nausea 750391123 R11.0 Gastroesop hageal reflux disease 383074267 K21.9 Lower back injury 270997 005 S39.92XA Anxiety 92395609 F41.9 Depressive disorder 3548 9007 F32.A Pain of mu ltiple joints 99989751 M25.50 Systemic l upus erythematosus 66930077 M32.9 Health Concerns Section Related Observation LastModified by Organization Detai ls LastModified Time None Recorded Concern Status LastModified by Organization Details LastModified Time None Recorded Advance Directives Directive None Recorded Payers Insurance Date Sequence Insurance Name Policy Number Policy Leonard Covered Member ID Leonard Member ID Guarantor Name 09/10/2024 1 [employer] BETTER [employer] OF [place] ON OR AFTER 05/02/2020 (MEDICARE REPLACEMENT/AD VANTAGE - HMO) Teagan Sigala [id number] Teagan Jennings Zakiya 02/18/2024 1 [place] Teagan Sigala [id number] Teagan Jennings Zakiya 02/18/2024 1 [place] WHEN MEDICARE OR MEDICARE REPLACEMENT PRIMARY) Teagan Sigala [id number] Teagan Sigala Notes Date Note Type Note Provider Name and Address Organization Details Recorded Time 03/03/2023 text/html ROS as noted in the HPI Prednisone taper helped her chest pain and breathing VALENTIN Chandler [email or web address], [place], [address], [facility] 03/05/2023 16:41:35 03/31/2023 text/html ROS as noted in the HPI anxiety has been intense , no reason , VALENTIN Chandler [email or web address], [place], [address], [facility] 04/01/2023 11:19:43 07/28/2023 text/html ROS as noted in the HPI just sits and cries in pain ..... has angina in to left arm again , left sided weakness to ED twice , given morphine and released . 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 needs a sleeping pill ,has been on nortriptyline in the past . VALENTIN Chandler [address], [place], [address], [facility] 07/28/2023 10:38:13 02/18/2024 text/html ROS as noted in the HPI out of meds , electricity turned off , cannot breathe , cannot do nebulizer treatments ! back pain. is bad again VALENTIN Chandler [email or web address], [place], [address], [facility] 03/07/2024 15:32:56 OBGyn Episode No OBEpisode recorded.
--- OUTSIDE RECORDS SUMMARY | 2025-03-05 14:12 | XMS_ITS | Encounter Summary ---
Author Organization [facility] Address [address] [place] [address] Care Team Providers Care Breaker Engineer Name Role Phone Thierry Chadwick DO Primary Care Provider [phone] Karan Snyder MD Unavailable [phone] Wesley Loaiza Primary Care Provider + Lilia Gomes MD Unavailable [phone] Mando Acuña MD Unavailable [phone] Ruben San ELECTROSTATIC POWDER COATING TECHNICIAN Unavailable [phone] Maico Ellison RESIDENTIAL REAL ESTATE SALES MANAGER Unavailable Dorian Del Rio DNP Unavailable Larry Gregory MD Unavailable [phone] Nixon Casey MD Unavailable Renan Espino MD Unavailable Encounter Details Date Type Department Care Team (Late st Contact Info) Description 05/20/2017 Documentation [facility] [id number] [place] [address] Kaylah Guerra Social History Tobacco Use Types Packs/Day Years Used Date Smoking Tobacco: Former Smokeless Tobacco: Never Alcohol Use Standard Drinks/Week Comments Not Asked 0 (1 standard drink = 0.6 oz pur e alcohol) Comments No Sex and Gender Information Value Date Recorded Sex Assigned at Not on file Legal Sex Female 1:55 AM LINOTYPER Gender Identity Not on file Sexual Orientation [...] CDT COVID19 04/05/2022 04/05/2022 04/15/2022 3:05 AM LINOTYPER COVID: Recovered Comment:Added based on recent COVID infection. 04/15/2022 05/17/2022 07/14/2022 3:[address] COVID: Suspected 05/17/2022 05/17/2022 05/17/2022 5:25 PM LINOTYPER COVID: Suspected 02/03/2023 02/03/2023 02/03/2023 12:10 PM CDT COVID: Suspected 02/28/2024 02/28/2024 02/28/2024 6:24 PM CDT documented as of this encounter Care Teams Breaker Engineer Relationship Specialty Start Date End Date Thierry Chadwick DO PCP - General 04/20/13 09/06/18 Wesley Loaiza PA [address] [place] [address] PCP - General 09/07/18 Karan Snyder MD Consulting Physician Cardiology 05/19/17 Lilia Gomes MD [address] [place] [address] Consulting Physician Cardiovascular Disease 09/08/18 Mando Acuña MD [address] [place] [address] Consulting Physician Cardiology 10/05/18 Ruben San, ELECTROSTATIC POWDER COATING TECHNICIAN [address] [facility] [address] [place] [address] [facility] Outpatient [place] 10/07/18 03/13/20 Maico Ellison, RESIDENTIAL REAL ESTATE SALES MANAGER [address] [facility] [address] [place] [address] [facility] Outpatient [place] 10/07/18 03/13/20 Dorian Del Roi, DNP [address] [facility] [address] [place] [address] Nurse Practitioner Internal Medicine 10/07/18 03/13/20 [place] [address] [facility] [address] [place] [address] Consulting Physician Internal Medicine 07/29/19 [place] [address] [facility] [address] [place] [address] Consulting Physician Gastroenterology 09/28/19 [place] [address] [place] [address] Consulting Physician Gastroenterology 11/13/21 documented as of this encounter
[2025-03-05 14:17] LABS: INR 1.0; Prothrombin Time 13.5 Seconds (11.1-14.7)
[2025-03-05 14:18] LABS: Alanine Aminotransferase 20 U/L (6-35); Albumin Level 3.1 g/dL (3.5-5.1); Alkaline Phosphatase 94 U/L (38-126); Anion Gap 4 mmol/L (4-12); Aspartate Amino Transferase 29 U/L (14-36); Bilirubin,Total 0.4 mg/dL (0.2-1.3); Blood Urea Nitrogen 25 mg/dL (7-17); Calcium 8.0 mg/dL (8.4-10.2); Carbon Dioxide 26 mmol/L (22-30); Chloride 105 mmol/L (98-107); Estimated Glomerular Filt Rate > 60; Glucose 117 mg/dL (65-110); Lipase 161 U/L (23-300); Partial Thromboplastin Time 25.7 Seconds (22.3-36.8); Potassium 3.3 mmol/L (3.4-5.0); Sodium 135 mmol/L (137-145); Total Protein 5.6 g/dL (6.3-8.2)
[2025-03-05 14:24] LABS: Anisocytosis 1+; Ovalocytes 1+; Poikilocytosis 1+; Schistocytes None Seen
[2025-03-05 14:29] LABS: Troponin I < 0.012 ng/mL (0.000-0.034)
[2025-03-05 14:31] VITALS: TEMP 37.8
--- NOTE | 2025-03-05 14:54 | PC.NURSE ---
Pt is refusing further care at this time. Risks reviewed with Marisa and this RN. Pt A&Ox4. IV removed. Pt signed AMA form. Walking out of department at this time.
--- NOTE | 2025-03-05 15:48 | ED.CHESTPAIN ---
HPI - Chest Pain General Chief Complaint: Chest Pain Stated Complaint: CP Time Seen by Provider: 03/05/25 14:05 Source: patient and old records reviewed Mode of arrival: EMS Limitations: no limitations History of Present Illness HPI narrative: Patient is a 74-year-old female, with past medical history of pacemaker, HTN, prior CVA on anticoagulation, CKD, who presents to the ED via EMS with multiple complaints. Patient reports having chest pain since yesterday throughout her midsternal chest. Also reports shortness breath, nausea, abdominal pain, pain in her extremities. Patient is well known to our facility. Is frequently found to have bedbug infestation. Was recently admitted to the hospital for elevated troponin, underwent cardiac catheterization on 02/28/2025 which showed nonobstructive CAD, required no intervention. Related Data Home Medications ?Medication ?Instructions ?Recorded ?Confirmed ?Last Taken ?Type prednisone 10 mg tablet 5 mg PO DAILY Shortness Of Breath 09/20/20 02/14/25 Unknown History Or Wheezing albuterol sulfate 90 mcg/actuation 90 mcg inhalation QID PRN 08/16/22 02/14/25 Unknown History aerosol inhaler Shortness Of Breath gabapentin 100 mg capsule 100 mg PO DAILY 08/16/22 02/14/25 03/13/24 History losartan 100 mg tablet 100 mg PO DAILY 08/16/22 02/14/25 03/13/24 History Held on 03/02/25. Instructions: Resume on 03/07/25. Hold until follow-up with your primary care provider and your kidney function is rechecked mirtazapine 15 mg tablet 15 mg PO QHS 08/16/22 02/14/25 03/13/24 History nitroglycerin 0.4 mg sublingual 0.4 mg sublingual BID PRN Chest 08/16/22 02/14/25 Unknown History tablet Pain sumatriptan succinate 100 mg tablet 100 mg PO BID PRN Headache 08/16/22 02/14/25 Unknown History aspirin 81 mg tablet,delayed 81 mg PO DAILY 11/25/22 02/14/25 03/13/24 History release nortriptyline 10 mg capsule 10 mg PO HS 08/23/23 02/14/25 03/12/24 History tizanidine 4 mg tablet 4 mg PO QID PRN Back Pain 08/23/23 02/14/25 03/13/24 History trazodone 100 mg tablet 100 mg PO HS 08/23/23 02/14/25 03/13/24 History apixaban 2.5 mg tablet (Eliquis) 2.5 mg PO BID 03/14/24 02/14/25 03/13/24 History oxycodone-acetaminophen 7.5 mg-325 1 tablet PO BID PRN Pain 03/14/24 02/14/25 Unknown History mg tablet albuterol sulfate 90 mcg/actuation 1 inh inhalation QID PRN shortness 02/26/25 02/26/25 Unknown History aerosol inhaler of breath or wheezing apixaban 2.5 mg tablet (Eliquis) 2.5 mg PO BID 02/26/25 02/26/25 02/25/25 10:00 History aspirin 81 mg tablet,delayed 81 mg PO DAILY 02/26/25 02/26/25 02/25/25 10:00 History release (Adult Aspirin Regimen) gabapentin 100 mg capsule 100 mg PO DAILY 02/26/25 02/26/25 02/25/25 10:00 History losartan 100 mg tablet 100 mg PO DAILY 02/26/25 02/26/25 02/25/25 10:00 History Held on 03/02/25. Instructions: Resume on 03/07/25. mirtazapine 15 mg tablet 15 mg PO HS 02/26/25 02/26/25 02/25/25 22:00 History nitroglycerin 0.4 mg sublingual 0.4 mg sublingual Q5M PRN chest 02/26/25 02/26/25 02/26/25 02:45 History tablet pain nortriptyline 10 mg capsule 10 mg PO HS 02/26/25 02/26/25 02/25/25 22:00 History ondansetron 4 mg disintegrating 4 mg translingual Q8H PRN nausea 02/26/25 02/26/25 02/25/25 20:15 History tablet and vomiting oxycodone-acetaminophen 7.5 mg-325 1 tablet PO BID PRN pain (scale 02/26/25 02/26/25 02/25/25 14:00 History mg tablet score 7-10) pantoprazole 40 mg tablet,delayed 40 mg PO QAM 02/26/25 02/26/25 02/25/25 10:00 History release prednisone 5 mg tablet 5 mg PO DAILY 02/26/25 02/26/25 02/25/25 10:00 History sumatriptan succinate 100 mg 100 mg PO BID PRN migraine headache 02/26/25 02/26/25 Unknown History tablet (Imitrex) tizanidine 4 mg tablet 4 mg PO QID PRN muscle spasticity 02/26/25 02/26/25 Unknown History trazodone 100 mg tablet 100 mg PO HS 02/26/25 02/26/25 02/25/25 22:00 History Allergies Allergy/AdvReac Type Severity Reaction Status Date / Time amphetamine (From Adderall) Allergy Unknown Unknown Verified 02/28/25 11:19 dextroamphetamine (From Allergy Unknown Unknown Verified 02/28/25 11:19 Adderall) lorazepam Allergy Unknown Agitated Verified 02/28/25 11:19 Penicillins Allergy Unknown Swelling Verified 02/28/25 11:19 of Lip/Tongue/Throat Sulfa (Sulfonamide AdvReac Unknown Nausea Verified 02/28/25 11:19 Antibiotics) Review of Systems Review of Systems: All systems reviewed & are unremarkable except as noted in HPI. All systems reviewed & are unremarkable except as noted in HPI and below PMFSH Past Medical History Medical History CKD (chronic kidney disease) stage 3, GFR 30-59 ml/min Carotid stenosis Bladder neoplasm of uncertain malignant potential Malingering Hyperlipidemia Hypertension GI bleed Gastroesophageal reflux disease Cerebrovascular accident Per patient reports, she had 2 or 3 strokes, the last being in April 2019 although not well documented. Chronic obstructive pulmonary disease Coronary artery disease Cerebral atherosclerosis Lupus Patient states she has lupus, not well documented. Fibromyalgia Questionable history of fibromyalgia Anxiety Depression Systemic lupus erythematosus Hyperpituitarism Left foot drop Osteoporosis Bladder cancer Arthritis Renal cancer Gastric ulcer Bronchitis Myocardial infarction Peripheral neuropathy Meningitis Early satiety Chronic iron deficiency anemia Surgical History Surgical History History of incision and drainage (06/2022) Right groin abscess. Right groin abscess had been due to perforation of bowel into the incarcerated hernia earlier in the same hospitalization History of resection of small bowel (06/20/22) Small-bowel resection with repair of incarcerated right inguinal hernia. History of bilateral breast reduction surgery History of cardiac defibrillator placement Reportedly for ventricular tachycardia. History of heart artery stent History of hysterectomy History of cholecystectomy History of tonsillectomy History of cardiac catheterization Family History Family History Mother Myocardial infarct Cardiovascular disease Hypertension CHF (congestive heart failure) Father Hypertension Father Hypertension Mother Hypertension Family history of cardiovascular disease Social History Social History Social History: Surrogate medical decision maker: Maxi Carrasquillo, son. Code status: Do not resuscitate. Smoking packs per day: 0.25 Smoking cigarettes per day: 5.0 Years smoked: 49 Smoking pack-years: 12.25 Smoking status: Current every day smoker Tobacco type: cigarettes Second hand tobacco smoke exposure: Yes Alcohol intake: never Substance use: never Substance use type: does not use Do You Feel Safe in your Home?: Yes Lack of Transportation: No Lack of Food: Never True Current Housing: I Have Housing Concerned About Future Housing: No Difficulty Paying Gas/Electric Bills: No Difficulty Paying for Meds: No Currently Unemployed: No Education: High School Diploma/GED Difficulty w/ Childcare or Family Care: No Additional living arrangements comments: with three children. Lives in [place]. 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 Spiritual care concerns: No Agree to blood products: Yes Exam Narrative: GENERAL: Disheveled/unkempt, thin, non-toxic, in no acute distress. HEAD: Normocephalic, atraumatic. RESPIRATORY: Airway patent, respirations nonlabored. CARDIOVASCULAR: Regular rate and rhythm MUSCULOSKELETAL: Moves all extremities. No gross deformities. SKIN: Warm, dry, normal color. NEURO: A&O X3. Speech clear. Cranial nerves II-XII grossly intact. Steady gait. No ataxic movements. PSYCHIATRIC: Appropriate mood and affect. Normal interaction. Course Vital Signs Vital signs: Vital Signs Temperature 100.1 F H 03/05/25 14:02 Pulse Rate 86 03/05/25 14:02 Respiratory Rate 17 03/05/25 14:02 Blood Pressure 137/89 03/05/25 14:02 Pulse Oximetry 96 03/05/25 14:02 Oxygen Delivery Room Air 03/05/25 14:02 Temperature 100.1 F H 03/05/25 14:31 Pulse Rate 86 03/05/25 14:02 Respiratory Rate 17 03/05/25 14:02 Blood Pressure 137/89 03/05/25 14:02 Pulse Oximetry 96 03/05/25 14:02 Oxygen Delivery Room Air 03/05/25 14:02 MDM - Chest Pain MDM Narrative Medical decision making narrative: Patient presented to ED with multiple complaints, chest pain, shortness breath, abdominal pain, nausea. Recently admitted for NSTEMI and had reassuring catheterization without intervention required. Patient borderline febrile upon arrival. In no acute distress. Tylenol was ordered. Laboratory workup prior to my initial evaluation was completed showing: EKG obtained showing sinus rhythm, some nonspecific ST changes in lateral leads. Appears fairly similar to previous EKG in records. Baseline troponin was undetectable. Basic laboratory studies are otherwise notable for potassium 3.3. Oral replacement was ordered. Upon my initial evaluation, patient repeatedly asking when her son will be here to pick her up. States she just wants to go home. Refusing to stay in her room. Discussed obtaining additional workup and patient adamantly declined. Does not want any further workup. Just wants to go home. Again continues to ask where her son is. Will have patient sign out against medical advice given incomplete workup. Discussed risks of doing so. Patient voiced understanding. AMA paperwork signed. Patient ambulatory at the facility with a steady gait. Medical Records Data Attestation: I reviewed the patient's medical records. Lab Data Attestation: I reviewed the patient's lab results. 03/05/25 13:56 03/05/25 13:56 Labs: Lab Results 03/05/25 Range/Units 13:56 WBC 10.5 H (4.5-10.0) K/mm3 RBC 3.96 L (4.2-5.4) M/mm3 Hgb 9.4 L (12.0-15.0) g/dL Hct 31.2 L (37.0-47.0) % MCV 78.8 L (80-100) fl MCH 23.7 L (26-34) pg MCHC 30.1 L (32-36) g/dl RDW 31.2 H (11.5-14.5) % Plt Count 274 (150-375) k/mm3 MPV 9.1 (7.4-10.4) fl Immature Gran % (Auto) 1.0 H (0-0.5) % Neut % (Auto) 73.3 H (45.5-73.1) % Lymph % (Auto) 13.6 L (18.3-44.2) % [place] % (Auto) 10.8 H (2.6-8.5) % Eos % (Auto) 1.2 (0-4.4) % Baso % (Auto) 0.1 L (0.2-1.2) % Lymph # (Auto) 1.43 (0.9-3.2) K/mm3 [place] # (Auto) 1.1 H (0.1-0.6) K/mm3 Eos # (Auto) 0.1 (0-0.3) K/mm3 Baso # (Auto) 0.0 (0.0-0.1) K/mm3 Abs Immat Gran (auto) 0.11 H (0.00-0.031) K/mm3 Absolute Neuts (auto) 7.7 H (1.3-6.7) K/mm3 Absolute Nucleated RBC 0.000 (0.0-0.012) K/mm3 Band Neutrophils % Not Reportable Nucleated RBC % 0.0 (0.0-0.2) % Platelet Estimate Adequate (Adequate) Poikilocytosis 1+ Anisocytosis 1+ Ovalocytes 1+ Schistocytes None seen PT 13.5 (11.1-14.7) Seconds INR 1.0 APTT 25.7 (22.3-36.8) Seconds Sodium 135 L (137-145) mmol/L Potassium 3.3 L (3.4-5.0) mmol/L Chloride 105 (98-107) mmol/L Carbon Dioxide 26 (22-30) mmol/L Anion Gap 4 (4-12) mmol/L BUN 25 H D (7-17) mg/dL Creatinine 0.82 (0.7-1.0) mg/dL Estim Creat Clear Calc Not Reportable Estimated GFR > 60 (59 - ) Glucose 117 H (65-110) mg/dL Calcium 8.0 L (8.4-10.2) mg/dL Total Bilirubin 0.4 (0.2-1.3) mg/dL AST 29 (14-36) U/L ALT 20 (6-35) U/L Alkaline Phosphatase 94 (38-126) U/L Troponin I < 0.012 (0.000-0.034) ng/mL Total Protein 5.6 L (6.3-8.2) g/dL Albumin 3.1 L (3.5-5.1) g/dL Lipase 161 (23-300) U/L ECG Data EKG #1: Attestation: I personally reviewed and interpreted this ECG as follows: ECG completion date: 03/05/25 ECG completion time: 13:42 EKG Interpretation: normal rate (92), sinus rhythm and non-specific ST changes Discharge Plan Discharge Clinical Impression: Chest pain Qualifiers: Chest pain type: chest pain on breathing Qualified Code(s): R07.1 - Chest pain on breathing Patient Disposition: Left Against Medical Advice Condition: Guarded Prognosis Patient Language: Estonian Prescriptions: No Action sumatriptan succinate 100 mg tablet 100 mg PO BID PRN (Reason: Headache) nitroglycerin 0.4 mg tablet, sublingual 0.4 mg sublingual BID PRN (Reason: Chest Pain) mirtazapine 15 mg tablet 15 mg PO QHS gabapentin 100 mg capsule 100 mg PO DAILY albuterol sulfate 90 mcg/actuation HFA aerosol inhaler 90 mcg inhalation QID PRN (Reason: Shortness Of Breath) losartan 100 mg tablet 100 mg PO DAILY prednisone 10 mg tablet 5 mg PO DAILY Rx Instructions: 1/2 Tab every day aspirin 81 mg Tablet,Delayed Release (Dr/Ec) 81 mg PO DAILY tizanidine 4 mg tablet 4 mg PO QID PRN (Reason: Back Pain) nortriptyline 10 mg capsule 10 mg PO HS trazodone 100 mg tablet 100 mg PO HS Eliquis 2.5 mg tablet 2.5 mg PO BID oxycodone-acetaminophen 7.5-325 mg tablet 1 tablet PO BID PRN (Reason: Pain) pantoprazole 40 mg Tablet,Delayed Release (Dr/Ec) 40 mg PO QAM Qty: 15 0RF ondansetron 4 mg tablet,disintegrating 4 mg PO Q8H PRN (Reason: nausea and vomiting) Qty: 14 0RF sumatriptan succinate [Imitrex] 100 mg tablet 100 mg PO BID PRN (Reason: migraine headache) nitroglycerin 0.4 mg tablet, sublingual 0.4 mg sublingual Q5M PRN (Reason: chest pain) Rx Instructions: do not exceed 3 doses per episode mirtazapine 15 mg tablet 15 mg PO HS gabapentin 100 mg capsule 100 mg PO DAILY albuterol sulfate 90 mcg/actuation HFA aerosol inhaler 1 inh inhalation QID PRN (Reason: shortness of breath or wheezing) losartan 100 mg tablet 100 mg PO DAILY prednisone 5 mg tablet 5 mg PO DAILY aspirin [Adult Aspirin Regimen] 81 mg tablet,delayed release (DR/EC) 81 mg PO DAILY tizanidine 4 mg tablet 4 mg PO QID PRN (Reason: muscle spasticity) Rx Instructions: PRN muscle spasms/back pain. nortriptyline 10 mg capsule 10 mg PO HS trazodone 100 mg tablet 100 mg PO HS Eliquis 2.5 mg tablet 2.5 mg PO BID oxycodone-acetaminophen 7.5-325 mg tablet 1 tablet PO BID PRN (Reason: pain (scale score 7-10)) pantoprazole 40 mg tablet,delayed release (DR/EC) 40 mg PO QAM ondansetron 4 mg tablet,disintegrating 4 mg translingual Q8H PRN (Reason: nausea and vomiting) levofloxacin 500 mg Tablet 500 mg PO Q48HR 1 Days Qty: 1 0RF Rx Instructions: Take 03/04/25 doxycycline hyclate 100 mg capsule 100 mg PO Q12H 5 Days Qty: 10 0RF Rx Instructions: Take one tablet PO Q12 hours x7 days. Rx started on 02/24/25. atorvastatin [Lipitor] 20 mg tablet 20 mg PO DAILY Qty: 30 0RF losartan [Cozaar] 100 mg tablet 100 mg PO DAILY Qty: 14 0RF aspirin [Adult Aspirin Regimen] 81 mg tablet,delayed release (DR/EC) 81 mg PO DAILY Qty: 30 0RF nitroglycerin 0.4 mg tablet, sublingual 0.4 mg sublingual BID PRN (Reason: chest pain) Qty: 30 0RF Rx Instructions: as a single dose; administer 5-10 minutes before situation known to precipitate angina attack Eliquis 2.5 mg tablet 2.5 mg PO BID Qty: 30 0RF atorvastatin [Lipitor] 20 mg tablet 20 mg PO DAILY Qty: 30 0RF Follow-up/Referrals: Josse,Gideon [Other]
== END 2025-03-05 15:00 | disposition left against medical advice (07) ==
LOC: ANHED 14:08
PROVIDERS: Preventive Medicine Aerospace Medicine; Emergency Provider Physician Assistant
DX: R07.1 Chest pain on breathing (principal); R06.02 Shortness of breath; I12.9 Hypertensive chronic kidney disease with stage 1 through stage 4 chronic kidney disease, or unspecified chronic kidney disease; N18.30 Chronic kidney disease, stage 3 unspecified; I25.10 Atherosclerotic heart disease of native coronary artery without angina pectoris; Z95.0 Presence of cardiac pacemaker; Z86.73 Personal history of transient ischemic attack (TIA), and cerebral infarction without residual deficits; F17.210 Nicotine dependence, cigarettes, uncomplicated; Z53.29 Procedure and treatment not carried out because of patient's decision for other reasons
CPT/HCPCS: 36415; 80053; 83690; 84484; 85025; 85610; 85730; 93005; 99284

== ENCOUNTER 2025-03-15 18:22 | Emergency (ER) | payer MEDICARE, MEDICAID, SELFPAY ==
--- NOTE | ~2025-03-15 | CT_ITS ---
CTA chest PE protocol HISTORY:left chest pain, recurrent, negative cath . COMPARISON: None. TECHNIQUE: Following the noncontrasted intelligence applications, axial images of the thorax were obtained following infusion of 100 cc of Isovue 370. Post-processing on an independent workstation was performed to reconstruct MIP images for evaluation of the thoracic vasculature. FINDINGS: There is no pulmonary embolism, aortic dissection, thoracic aneurysm or pericardial fluid. The lung parenchyma is clear. No pleural effusion or pneumothorax is noted. There is no axillary, mediastinal or hilar adenopathy. Limited evaluation of the upper abdomen demonstrates no gross abnormalities. Review of bone windows demonstrates no osteoblastic or lytic lesions. IMPRESSION: There is no pulmonary embolism, aortic dissection, pericardial fluid or thoracic aneurysm. No acute lung findings. All CT scans at this facility are performed using low dose modulation techniques as appropriate to perform exam including the following: automated exposure control; use of iterative reconstruction technique; adjustment of the mA and/or kV according to patient size (this includes techniques or standardized protocols for targeted exams where dose is matched to indication/reason for exam). Reviewed, dictated and finalized at location S. IMPRESSION: There is no pulmonary embolism, aortic dissection, pericardial fluid or thoraci c aneurysm. No acute lung findings. All CT scans at this facility are performed using low dose modulation techniqu es as appropriate to perform exam including the following: automated exposure c ontrol; use of iterative reconstruction technique; adjustment of the mA and/or kV according to patient size (this includes techniques or standardized protocol s for targeted exams where dose is matched to indication/reason for exam).
--- NOTE | ~2025-03-15 | XR_ITS ---
XR chest 1V portable INDICATION:chest pain . REFERENCE: None FINDINGS: A single AP of the chest demonstrates normal heart size. Dual-chamber pacing device noted. The lungs are clear. There is no evidence of pneumothorax or pleural effusion. IMPRESSION: No acute pulmonary findings. Reviewed, dictated and finalized at location S.
[2025-03-15 18:29] VITALS: BP 174/91; PULSE 77; RESP 19; TEMP 36.8; O2SAT 100
--- NOTE | 2025-03-15 18:47 | ECG_ITS ---
Test Date: 2025-03-15 19:48:05 Measurements Intervals [place] Rate: 73 P: 81 OK: 139 QRS: 64 QRSD: 95 T: 64 QT: 434 QTc: 481 Interpretive Statements SINUS RHYTHM LEFT VENTRICULAR HYPERTROPHY AND ST-T CHANGE ANTEROSEPTAL INFARCT, AGE INDETERMINATE BORDERLINE ST ABNORMALITY- INFERIOR LEADS ABNORMAL ECG Compared to ECG 03/05/2025 13:42:02 NO SIGNIFICANT CHANGE Electronically Signed On 03-15-2025 19:50:41 CDT by Dequan Armendariz D.O.
[2025-03-15 19:36] VITALS: PULSE 83
[2025-03-15 19:39] LABS: Hematocrit 34.7 % (37.0-47.0); Hemoglobin 10.2 g/dL (12.0-15.0); Immature Granulocyte Percent A 0.3 % (0-0.5); Lymphocytes Absolute Auto 1.69 K/mm3 (0.9-3.2); Mean Corpuscular HGB Conc 29.4 g/dl (32-36); Mean Corpuscular Hemoglobin 24.3 pg (26-34); Mean Corpuscular Volume 82.6 fl (80-100); Nucleated Red Blood Cells Absolute Auto 0.000 K/mm3 (0.0-0.012); Nucleated Red Blood Cells Perc 0.0 % (0.0-0.2); Platelet Count Result 160 k/mm3 (150-375); Red Blood Count 4.20 M/mm3 (4.2-5.4); White Blood Count 6.7 K/mm3 (4.5-10.0)
[2025-03-15 19:49] LABS: INR 1.1; Prothrombin Time 14.4 Seconds (11.1-14.7)
[2025-03-15 19:51] LABS: Partial Thromboplastin Time 28.6 Seconds (22.3-36.8)
[2025-03-15 19:56] LABS: Alanine Aminotransferase 21 U/L (6-35); Albumin Level 3.6 g/dL (3.5-5.1); Alkaline Phosphatase 104 U/L (38-126); Anion Gap 8 mmol/L (4-12); Aspartate Amino Transferase 28 U/L (14-36); Bilirubin,Total 0.6 mg/dL (0.2-1.3); Blood Urea Nitrogen 18 mg/dL (7-17); Calcium 9.2 mg/dL (8.4-10.2); Carbon Dioxide 20 mmol/L (22-30); Chloride 112 mmol/L (98-107); Estimated Glomerular Filt Rate > 60; Glucose 74 mg/dL (65-110); Lipase 124 U/L (23-300); Potassium 3.4 mmol/L (3.4-5.0); Sodium 140 mmol/L (137-145); Total Protein 6.3 g/dL (6.3-8.2)
[2025-03-15 20:08] LABS: Troponin I < 0.012 ng/mL (0.000-0.034)
[2025-03-15 20:14] LABS: Anisocytosis 2+; Hypochromasia 1+; Schistocytes None Seen
[2025-03-15 20:15] LABS: Ovalocytes 1+
[2025-03-15] MEDS: MORPHINE SULFATE (*CRX) 4 MG/ML INJ IV PUSH (20:23)
--- NOTE | 2025-03-15 20:44 | ED.CHESTPAIN ---
HPI - Chest Pain General Chief Complaint: Chest Pain <Ollie Andre MD - Last Filed: 03/16/25 02:18> Stated Complaint: chest pain <Ollie Andre MD - Last Filed: 03/16/25 02:18> Time Seen by Provider: 03/15/25 18:46 <Ollie Andre MD - Last Filed: 03/16/25 02:18> History of Present Illness HPI narrative: 74-year-old female with complex past medical history including pacemaker, hypertension, prior CVA and anticoagulation, CKD, recent NSTEMI with nonobstructive coronary disease on cardiac catheterization 02/28/2025. Patient presents to the emergency department today with concerns of chest pain. She is well-known to this facility and presents with complaints of chest pain periodically and quite frequently according to the review of the EMR and reports by staff. Patient states that she describes a sharp stabbing pain in the left side of her chest going up towards her arm and neck. States that feels similar to last time she was here. She was here on the for similar complaints and had unremarkable workup and sent home at that time. Patient denies any new changes to her health. Compliant with her medications and denies any new injuries or illnesses. No associated shortness of breath, fever, chills, nausea, vomiting, headache, vision changes. No abdominal pain, neuropathy or weakness. Patient asks multiple times throughout the encounter for pain medications rather than answering questions directly. Not in any apparent distress. <Ollie Andre MD - Last Filed: 03/16/25 02:18> Related Data Home Medications: Home Medications ?Medication ?Instructions ?Recorded ?Confirmed ?Last Taken ?Type prednisone 10 mg tablet 5 mg PO DAILY Shortness Of Breath 09/20/20 02/14/25 Unknown History Or Wheezing albuterol sulfate 90 mcg/actuation 90 mcg inhalation QID PRN 08/16/22 02/14/25 Unknown History aerosol inhaler Shortness Of Breath gabapentin 100 mg capsule 100 mg PO DAILY 08/16/22 02/14/25 03/13/24 History losartan 100 mg tablet 100 mg PO DAILY 08/16/22 02/14/25 03/13/24 History Held on 03/02/25. Instructions: Resume on 03/07/25. Hold until follow-up with your primary care provider and your kidney function is rechecked mirtazapine 15 mg tablet 15 mg PO QHS 08/16/22 02/14/25 03/13/24 History nitroglycerin 0.4 mg sublingual 0.4 mg sublingual BID PRN Chest 08/16/22 02/14/25 Unknown History tablet Pain sumatriptan succinate 100 mg tablet 100 mg PO BID PRN Headache 08/16/22 02/14/25 Unknown History aspirin 81 mg tablet,delayed 81 mg PO DAILY 11/25/22 02/14/25 03/13/24 History release nortriptyline 10 mg capsule 10 mg PO HS 08/23/23 02/14/25 03/12/24 History tizanidine 4 mg tablet 4 mg PO QID PRN Back Pain 08/23/23 02/14/25 03/13/24 History trazodone 100 mg tablet 100 mg PO HS 08/23/23 02/14/25 03/13/24 History apixaban 2.5 mg tablet (Eliquis) 2.5 mg PO BID 03/14/24 02/14/25 03/13/24 History oxycodone-acetaminophen 7.5 mg-325 1 tablet PO BID PRN Pain 03/14/24 02/14/25 Unknown History mg tablet albuterol sulfate 90 mcg/actuation 1 inh inhalation QID PRN shortness 02/26/25 02/26/25 Unknown History aerosol inhaler of breath or wheezing apixaban 2.5 mg tablet (Eliquis) 2.5 mg PO BID 02/26/25 02/26/25 02/25/25 10:00 History aspirin 81 mg tablet,delayed 81 mg PO DAILY 02/26/25 02/26/25 02/25/25 10:00 History release (Adult Aspirin Regimen) gabapentin 100 mg capsule 100 mg PO DAILY 02/26/25 02/26/25 02/25/25 10:00 History losartan 100 mg tablet 100 mg PO DAILY 02/26/25 02/26/25 02/25/25 10:00 History Held on 03/02/25. Instructions: Resume on 03/07/25. mirtazapine 15 mg tablet 15 mg PO HS 02/26/25 02/26/25 02/25/25 22:00 History nitroglycerin 0.4 mg sublingual 0.4 mg sublingual Q5M PRN chest 02/26/25 02/26/25 02/26/25 02:45 History tablet pain nortriptyline 10 mg capsule 10 mg PO HS 02/26/25 02/26/25 02/25/25 22:00 History ondansetron 4 mg disintegrating 4 mg translingual Q8H PRN nausea 02/26/25 02/26/25 02/25/25 20:15 History tablet and vomiting oxycodone-acetaminophen 7.5 mg-325 1 tablet PO BID PRN pain (scale 02/26/25 02/26/25 02/25/25 14:00 History mg tablet score 7-10) pantoprazole 40 mg tablet,delayed 40 mg PO QAM 02/26/25 02/26/25 02/25/25 10:00 History release prednisone 5 mg tablet 5 mg PO DAILY 02/26/25 02/26/25 02/25/25 10:00 History sumatriptan succinate 100 mg 100 mg PO BID PRN migraine headache 02/26/25 02/26/25 Unknown History tablet (Imitrex) tizanidine 4 mg tablet 4 mg PO QID PRN muscle spasticity 02/26/25 02/26/25 Unknown History trazodone 100 mg tablet 100 mg PO HS 02/26/25 02/26/25 02/25/25 22:00 History <Ollie Andre MD - Last Filed: 03/16/25 02:18> Allergies/Adverse Reactions: Allergies Allergy/AdvReac Type Severity Reaction Status Date / Time amphetamine (From Adderall) Allergy Unknown Unknown Verified 02/28/25 11:19 dextroamphetamine (From Allergy Unknown Unknown Verified 02/28/25 11:19 Adderall) lorazepam Allergy Unknown Agitated Verified 02/28/25 11:19 Penicillins Allergy Unknown Swelling Verified 02/28/25 11:19 of Lip/Tongue/Throat Sulfa (Sulfonamide AdvReac Unknown Nausea Verified 02/28/25 11:19 Antibiotics) <Ollie Andre MD - Last Filed: 03/16/25 02:18> Review of Systems Review of Systems: As reviewed above in HPI <Ollie Andre MD - Last Filed: 03/16/25 02:18> [facility] Past Medical History Medical History: Medical History CKD (chronic kidney disease) stage 3, GFR 30-59 ml/min Carotid stenosis Bladder neoplasm of uncertain malignant potential Malingering Hyperlipidemia Hypertension GI bleed Gastroesophageal reflux disease Cerebrovascular accident Per patient reports, she had 2 or 3 strokes, the last being in April 2019 although not well documented. Chronic obstructive pulmonary disease Coronary artery disease Cerebral atherosclerosis Lupus Patient states she has lupus, not well documented. Fibromyalgia Questionable history of fibromyalgia Anxiety Depression Systemic lupus erythematosus Hyperpituitarism Left foot drop Osteoporosis Bladder cancer Arthritis Renal cancer Gastric ulcer Bronchitis Myocardial infarction Peripheral neuropathy Meningitis Early satiety Chronic iron deficiency anemia <Ollie Andre MD - Last Filed: 03/16/25 02:18> Surgical History Surgical History: Surgical History History of incision and drainage (06/2022) Right groin abscess. Right groin abscess had been due to perforation of bowel into the incarcerated hernia earlier in the same hospitalization History of resection of small bowel (06/20/22) Small-bowel resection with repair of incarcerated right inguinal hernia. History of bilateral breast reduction surgery History of cardiac defibrillator placement Reportedly for ventricular tachycardia. History of heart artery stent History of hysterectomy History of cholecystectomy History of tonsillectomy History of cardiac catheterization <Ollie Andre MD - Last Filed: 03/16/25 02:18> Family History Family History: Family History Mother Myocardial infarct Cardiovascular disease Hypertension CHF (congestive heart failure) Father Hypertension Father Hypertension Mother Hypertension Family history of cardiovascular disease <Ollie Andre MD - Last Filed: 03/16/25 02:18> Social History Social History: Social History Social History: Surrogate medical decision maker: Maxi Carrasquillo, son. Code status: Do not resuscitate. Smoking packs per day: 0.25 Smoking cigarettes per day: 5.0 Years smoked: 49 Smoking pack-years: 12.25 Smoking status: Current every day smoker Tobacco type: cigarettes Second hand tobacco smoke exposure: Yes Alcohol intake: never Substance use: never Substance use type: does not use Do You Feel Safe in your Home?: Yes Lack of Transportation: No Lack of Food: Never True Current Housing: I Have Housing Concerned About Future Housing: No Difficulty Paying Gas/Electric Bills: No Difficulty Paying for Meds: No Currently Unemployed: No Education: High School Diploma/GED Difficulty w/ Childcare or Family Care: No Additional living arrangements comments: with three children. Lives in [place]. 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 Spiritual care concerns: No Agree to blood products: Yes <Ollie Andre MD - Last Filed: 03/16/25 02:18> Exam Narrative: GENERAL: [Well-appearing, well-nourished, and in no acute distress.] HEAD: [Normocephalic, atraumatic.] EYES: [PERRLA and EOMI.] ENT: Nares clear, no rhinorrhea or epistaxis. Mucous membranes moist. NECK: Supple. CHEST: [Clear to auscultation. No respiratory distress.] HEART: [Regular rate and rhythm]. No murmur heard. [Normal peripheral pulses.] ABDOMEN: [Soft, nondistended], [nontender], [No rigidity or guarding] EXTREMITIES: Normal range of motion. [No edema.] SKIN: Warm, dry, no rash. NEURO: [No focal deficits]. Alert and oriented [x3.] PSYCH: [Normal mood and affect.] <Ollie Andre MD - Last Filed: 03/16/25 02:18> Course Vital Signs Vital signs: Vital Signs Temperature 36.8 C 03/15/25 18:29 Pulse Rate 77 03/15/25 18: Respiratory Rate 19 03/15/25 18: Blood Pressure 174/91 H 03/15/25 18:29 Pulse Oximetry 100 03/15/25 18:29 Oxygen Delivery Room Air 03/15/25 18:29 Temperature 36.7 C 03/15/25 22:54 Pulse Rate 100 03/15/25 22:54 Respiratory Rate 20 03/15/25 22:54 Blood Pressure 163/74 H 03/15/25 22:54 Pulse Oximetry 100 03/15/25 22:54 Oxygen Delivery Room Air 03/15/25 18:36 <Ollie Andre MD - Last Filed: 03/16/25 02:18> Vital Signs Temperature 36.8 C 03/15/25 18:29 Pulse Rate 77 03/15/25 18:29 Respiratory Rate 19 03/15/25 18:29 Blood Pressure 174/91 H 03/15/25 18:29 Pulse Oximetry 100 03/15/25 18:29 Oxygen Delivery Room Air 03/15/25 18:29 Temperature 36.7 C 03/15/25 22:54 Pulse Rate 100 03/15/25 22:54 Respiratory Rate 20 03/15/25 22:54 Blood Pressure 163/74 H 03/15/25 22:54 Pulse Oximetry 100 03/15/25 22:54 Oxygen Delivery Room Air 03/15/25 18:36 <Mariah Patterson MD - Last Filed: 03/16/25 01:46> MDM - Chest Pain MDM Narrative Medical decision making narrative: 74-year-old female with complex past medical history including pacemaker, hypertension, prior CVA and anticoagulation, CKD, recent NSTEMI with nonobstructive coronary disease on cardiac catheterization 02/28/2025. Patient presents to the emergency department today with concerns of chest pain. She is well-known to this facility and presents with complaints of chest pain periodically and quite frequently according to the review of the EMR and reports by staff. Patient states that she describes a sharp stabbing pain in the left side of her chest going up towards her arm and neck. States that feels similar to last time she was here. She was here on the for similar complaints and had unremarkable workup and sent home at that time. Patient denies any new changes to her health. Compliant with her medications and denies any new injuries or illnesses. No associated shortness of breath, fever, chills, nausea, vomiting, headache, vision changes. No abdominal pain, neuropathy or weakness. Patient asks multiple times throughout the encounter for pain medications rather than answering questions directly. Not in any apparent distress. Patient is an unremarkable physical examination, not any apparent distress. Normal vital signs aside from stable hypertension. No tachycardia, fever, hypoxemia. Clear breath sounds throughout, strong symmetric pulses throughout. No signs of calf asymmetry or DVT on exam. Given patient's age and risk factors and previous cardiac events a workup was ordered including serial troponins, EKG, chest x-ray, CT angiography with PE protocol given her unexplained recurrent chest pain and recent NSTEMI despite negative coronary angiography. Patient given morphine for analgesia and placed on playground monitor. Pacemaker was interrogated and [employer] device sales representative electric service called charge nurse and report faxed over with no acute anomalies and normal function reported. EKG obtained shows no acute changes per review of the EMR and she has chronic sub mm ST depressions laterally which are unchanged from multiple prior EKGs. No ST segment elevations. Normal sinus rhythm, normal rhythm and axis. Patient's initial troponin is negative. CT angiography is negative. Patient care signed over to oncoming ER physician pending delta troponin and likely discharge home assuming unremarkable. Patient given morphine and Toradol for analgesia. Remains hemodynamically stable. <Ollie Andre MD - Last Filed: 03/16/25 02:18> 74-year-old female with complex past medical history including pacemaker, hypertension, prior CVA and anticoagulation, CKD, recent NSTEMI with nonobstructive coronary disease on cardiac catheterization 02/28/2025. Patient presents to the emergency department today with concerns of chest pain. She is well-known to this facility and presents with complaints of chest pain periodically and quite frequently according to the review of the EMR and reports by staff. Patient states that she describes a sharp stabbing pain in the left side of her chest going up towards her arm and neck. States that feels similar to last time she was here. She was here on the for similar complaints and had unremarkable workup and sent home at that time. Patient denies any new changes to her health. Compliant with her medications and denies any new injuries or illnesses. No associated shortness of breath, fever, chills, nausea, vomiting, headache, vision changes. No abdominal pain, neuropathy or weakness. Patient asks multiple times throughout the encounter for pain medications rather than answering questions directly. Not in any apparent distress. Patient is an unremarkable physical examination, not any apparent distress. Normal vital signs aside from stable hypertension. No tachycardia, fever, hypoxemia. Clear breath sounds throughout, strong symmetric pulses throughout. No signs of calf asymmetry or DVT on exam. Given patient's age and risk factors and previous cardiac events a workup was ordered including serial troponins, EKG, chest x-ray, CT angiography with PE protocol given her unexplained recurrent chest pain and recent NSTEMI despite negative coronary angiography. Patient given morphine for analgesia and placed on playground monitor. Pacemaker was interrogated and [employer] device sales representative electric service called charge nurse and report faxed over with no acute anomalies and normal function reported. EKG obtained shows no acute changes per review of the EMR and she has chronic sub mm ST depressions laterally which are unchanged from multiple prior EKGs. No ST segment elevations. Normal sinus rhythm, normal rhythm and axis. Patient's initial troponin is negative. CT angiography is negative. Patient care signed over to oncoming ER physician pending delta troponin and likely discharge home assuming unremarkable. Patient given morphine and Toradol for analgesia. Remains hemodynamically stable. [place]: Patient signed out to me pending 3 hour troponin. Troponin was obtained and noted to be negative. Patient was discharged with follow-up with her primary care physician within the next 3-5 days. Provided with strict return precautions instructed to return to the ED if any new or worsening symptoms develop. Discharged home in stable condition. <Mariah Patterson MD - Last Filed: 03/16/25 01:46> Medical Records Data Attestation: I reviewed the patient's medical records. <Ollie Andre MD - Last Filed: 03/16/25 02:18> Lab Data Attestation: I reviewed the patient's lab results. <Ollie Andre MD - Last Filed: 03/16/25 02:18> Result diagrams: 03/15/25 19:33 03/15/25 19:33 <Ollie Andre MD - Last Filed: 03/16/25 02:18> Labs: Lab Results 03/15/25 03/15/25 Range/Units 19:33 21:51 WBC 6.7 (4.5-10.0) K/mm3 RBC 4.20 (4.2-5.4) M/mm3 Hgb 10.2 L (12.0-15.0) g/dL Hct 34.7 L (37.0-47.0) % MCV 82.6 (80-100) fl MCH 24.3 L (26-34) pg MCHC 29.4 L (32-36) g/dl RDW 28.8 H (11.5-14.5) % Plt Count 160 (150-375) k/mm3 MPV 8.1 (7.4-10.4) fl Immature Gran % (Auto) 0.3 (0-0.5) % Neut % (Auto) 56.9 (45.5-73.1) % Lymph % (Auto) 25.4 (18.3-44.2) % [place] % (Auto) 10.2 H (2.6-8.5) % Eos % (Auto) 6.6 H (0-4.4) % Baso % (Auto) 0.6 (0.2-1.2) % Lymph # (Auto) 1.69 (0.9-3.2) K/mm3 [place] # (Auto) 0.7 H (0.1-0.6) K/mm3 Eos # (Auto) 0.4 H (0-0.3) K/mm3 Baso # (Auto) 0.0 (0.0-0.1) K/mm3 Abs Immat Gran (auto) 0.02 (0.00-0.031) K/mm3 Absolute Neuts (auto) 3.8 (1.3-6.7) K/mm3 Absolute Nucleated RBC 0.000 (0.0-0.012) K/mm3 Band Neutrophils % Not Reportable Nucleated RBC % 0.0 (0.0-0.2) % Platelet Estimate Adequate (Adequate) Hypochromasia 1+ Anisocytosis 2+ Ovalocytes 1+ Schistocytes None seen PT 14.4 (11.1-14.7) Seconds INR 1.1 APTT 28.6 (22.3-36.8) Seconds Sodium 140 (137-145) mmol/L Potassium 3.4 (3.4-5.0) mmol/L Chloride 112 H (98-107) mmol/L Carbon Dioxide 20 L (22-30) mmol/L Anion Gap 8 (4-12) mmol/L BUN 18 H (7-17) mg/dL Creatinine 0.86 (0.7-1.0) mg/dL Estim Creat Clear Calc Not Reportable Estimated GFR > 60 (59 - ) Glucose 74 (65-110) mg/dL Calcium 9.2 (8.4-10.2) mg/dL Total Bilirubin 0.6 (0.2-1.3) mg/dL AST 28 (14-36) U/L ALT 21 (6-35) U/L Alkaline Phosphatase 104 (38-126) U/L Troponin I < 0.012 < 0.012 (0.000-0.034) ng/mL Total Protein 6.3 (6.3-8.2) g/dL Albumin 3.6 (3.5-5.1) g/dL Lipase 124 (23-300) U/L <Ollie Andre MD - Last Filed: 03/16/25 02:18> Lab Results 03/15/25 03/15/25 Range/Units 19:33 21:51 WBC 6.7 (4.5-10.0) K/mm3 RBC 4.20 (4.2-5.4) M/mm3 Hgb 10.2 L (12.0-15.0) g/dL Hct 34.7 L (37.0-47.0) % MCV 82.6 (80-100) fl MCH 24.3 L (26-34) pg MCHC 29.4 L (32-36) g/dl RDW 28.8 H (11.5-14.5) % Plt Count 160 (150-375) k/mm3 MPV 8.1 (7.4-10.4) fl Immature Gran % (Auto) 0.3 (0-0.5) % Neut % (Auto) 56.9 (45.5-73.1) % Lymph % (Auto) 25.4 (18.3-44.2) % [place] % (Auto) 10.2 H (2.6-8.5) % Eos % (Auto) 6.6 H (0-4.4) % Baso % (Auto) 0.6 (0.2-1.2) % Lymph # (Auto) 1.69 (0.9-3.2) K/mm3 [place] # (Auto) 0.7 H (0.1-0.6) K/mm3 Eos # (Auto) 0.4 H (0-0.3) K/mm3 Baso # (Auto) 0.0 (0.0-0.1) K/mm3 Abs Immat Gran (auto) 0.02 (0.00-0.031) K/mm3 Absolute Neuts (auto) 3.8 (1.3-6.7) K/mm3 Absolute Nucleated RBC 0.000 (0.0-0.012) K/mm3 Band Neutrophils % Not Reportable Nucleated RBC % 0.0 (0.0-0.2) % Platelet Estimate Adequate (Adequate) Hypochromasia 1+ Anisocytosis 2+ Ovalocytes 1+ Schistocytes None seen PT 14.4 (11.1-14.7) Seconds INR 1.1 APTT 28.6 (22.3-36.8) Seconds Sodium 140 (137-145) mmol/L Potassium 3.4 (3.4-5.0) mmol/L Chloride 112 H (98-107) mmol/L Carbon Dioxide 20 L (22-30) mmol/L Anion Gap 8 (4-12) mmol/L BUN 18 H (7-17) mg/dL Creatinine 0.86 (0.7-1.0) mg/dL Estim Creat Clear Calc Not Reportable Estimated GFR > 60 (59 - ) Glucose 74 (65-110) mg/dL Calcium 9.2 (8.4-10.2) mg/dL Total Bilirubin 0.6 (0.2-1.3) mg/dL AST 28 (14-36) U/L ALT 21 (6-35) U/L Alkaline Phosphatase 104 (38-126) U/L Troponin I < 0.012 < 0.012 (0.000-0.034) ng/mL Total Protein 6.3 (6.3-8.2) g/dL Albumin 3.6 (3.5-5.1) g/dL Lipase 124 (23-300) U/L <Mariah Patterson MD - Last Filed: 03/16/25 01:46> Imaging Data Attestation: I personally reviewed and interpreted this imaging study as follows: <Ollie Andre MD - Last Filed: 03/16/25 02:18> My impression: Impressions Chest X-Ray 03/15/25 19:37 IMPRESSION: No acute pulmonary findings. Chest CTA 03/15/25 21:11 IMPRESSION: There is no pulmonary embolism, aortic dissection, pericardial fluid or thoracic aneurysm. No acute lung findings. All CT scans at this facility are performed using low dose modulation techniques as appropriate to perform exam including the following: automated exposure control; use of iterative reconstruction technique; adjustment of the mA and/or kV according to patient size (this includes techniques or standardized protocols for targeted exams where dose is matched to indication/reason for exam). <Ollie Andre MD - Last Filed: 03/16/25 02:18> Discharge Plan Discharge Clinical Impression: Chest pain Qualifiers: Chest pain type: chest pain on breathing Qualified Code(s): R07.1 - Chest pain on breathing <Ollie Andre MD - Last Filed: 03/16/25 02:18> Patient Disposition: Still a Patient <Ollie Andre MD - Last Filed: 03/16/25 02:18> Condition: Stable <Ollie Andre MD - Last Filed: 03/16/25 02:18> Additional Instructions: Please follow-up with your family doctor within the next 3-5 days. Return to the emergency department if any new or worsening symptoms develop. <Ollie Andre MD - Last Filed: 03/16/25 02:18> Patient Language: Micronesian <Ollie Andre MD - Last Filed: 03/16/25 02:18> Prescriptions: No Action sumatriptan succinate 100 mg tablet 100 mg PO BID PRN (Reason: Headache) nitroglycerin 0.4 mg tablet, sublingual 0.4 mg sublingual BID PRN (Reason: Chest Pain) mirtazapine 15 mg tablet 15 mg PO QHS gabapentin 100 mg capsule 100 mg PO DAILY albuterol sulfate 90 mcg/actuation HFA aerosol inhaler 90 mcg inhalation QID PRN (Reason: Shortness Of Breath) losartan 100 mg tablet 100 mg PO DAILY prednisone 10 mg tablet 5 mg PO DAILY Rx Instructions: 1/2 Tab every day aspirin 81 mg Tablet,Delayed Release (Dr/Ec) 81 mg PO DAILY tizanidine 4 mg tablet 4 mg PO QID PRN (Reason: Back Pain) nortriptyline 10 mg capsule 10 mg PO HS trazodone 100 mg tablet 100 mg PO HS Eliquis 2.5 mg tablet 2.5 mg PO BID oxycodone-acetaminophen 7.5-325 mg tablet 1 tablet PO BID PRN (Reason: Pain) pantoprazole 40 mg Tablet,Delayed Release (Dr/Ec) 40 mg PO QAM Qty: 15 0RF ondansetron 4 mg tablet,disintegrating 4 mg PO Q8H PRN (Reason: nausea and vomiting) Qty: 14 0RF sumatriptan succinate [Imitrex] 100 mg tablet 100 mg PO BID PRN (Reason: migraine headache) nitroglycerin 0.4 mg tablet, sublingual 0.4 mg sublingual Q5M PRN (Reason: chest pain) Rx Instructions: do not exceed 3 doses per episode mirtazapine 15 mg tablet 15 mg PO HS gabapentin 100 mg capsule 100 mg PO DAILY albuterol sulfate 90 mcg/actuation HFA aerosol inhaler 1 inh inhalation QID PRN (Reason: shortness of breath or wheezing) losartan 100 mg tablet 100 mg PO DAILY prednisone 5 mg tablet 5 mg PO DAILY aspirin [Adult Aspirin Regimen] 81 mg tablet,delayed release (DR/EC) 81 mg PO DAILY tizanidine 4 mg tablet 4 mg PO QID PRN (Reason: muscle spasticity) Rx Instructions: PRN muscle spasms/back pain. nortriptyline 10 mg capsule 10 mg PO HS trazodone 100 mg tablet 100 mg PO HS Eliquis 2.5 mg tablet 2.5 mg PO BID oxycodone-acetaminophen 7.5-325 mg tablet 1 tablet PO BID PRN (Reason: pain (scale score 7-10)) pantoprazole 40 mg tablet,delayed release (DR/EC) 40 mg PO QAM ondansetron 4 mg tablet,disintegrating 4 mg translingual Q8H PRN (Reason: nausea and vomiting) levofloxacin 500 mg Tablet 500 mg PO Q48HR 1 Days Qty: 1 0RF Rx Instructions: Take 03/04/25 doxycycline hyclate 100 mg capsule 100 mg PO Q12H 5 Days Qty: 10 0RF Rx Instructions: Take one tablet PO Q12 hours x7 days. Rx started on 02/24/25. atorvastatin [Lipitor] 20 mg tablet 20 mg PO DAILY Qty: 30 0RF losartan [Cozaar] 100 mg tablet 100 mg PO DAILY Qty: 14 0RF aspirin [Adult Aspirin Regimen] 81 mg tablet,delayed release (DR/EC) 81 mg PO DAILY Qty: 30 0RF nitroglycerin 0.4 mg tablet, sublingual 0.4 mg sublingual BID PRN (Reason: chest pain) Qty: 30 0RF Rx Instructions: as a single dose; administer 5-10 minutes before situation known to precipitate angina attack Eliquis 2.5 mg tablet 2.5 mg PO BID Qty: 30 0RF atorvastatin [Lipitor] 20 mg tablet 20 mg PO DAILY Qty: 30 0RF <Ollei Andre MD - Last Filed: 03/16/25 02:18> Follow-up/Referrals: Josse,Gideon [Other] - 3 Days <Ollie Andre MD - Last Filed: 03/16/25 02:18> Time of Disposition: 22:24 <Ollie Andre MD - Last Filed: 03/16/25 02:18> 22:24 <Mariah Patterson MD - Last Filed: 03/16/25 01:46>
--- NOTE | 2025-03-15 21:41 | ECG_ITS ---
Test Date: 2025-03-15 21:48:25 Measurements Intervals [place] Rate: 74 P: 111 MN: 142 QRS: 44 QRSD: 93 T: 29 QT: 432 QTc: 480 Interpretive Statements ELECTRONIC ATRIAL PACEMAKER WITH VENTRICULAR PREMATURE COMPLEXES VOLTAGE CRITERIA FOR LVH NONSPECIFIC ST & T-WAVE ABNORMALITY- LAT/HIGH LAT LEADS BASELINE ARTIFACT- I, III, AVL BORDERLINE ECG Compared to ECG 03/15/2025 19:48:05 Sinus rhythm no longer present Electronically Signed On 03-16-2025 06:13:56 CDT by Dequan Armendariz D.O.
[2025-03-15] MEDS: KETOROLAC 15 MG/ML VIAL (*BKC) IV PUSH (22:15)
[2025-03-15 22:23] LABS: Troponin I < 0.012 ng/mL (0.000-0.034)
[2025-03-15 22:54] VITALS: BP 163/74; PULSE 100; RESP 20; TEMP 36.7; O2SAT 100
== END 2025-03-15 22:57 | disposition home or self-care (01) ==
PROVIDERS: Emergency Provider Student in an Organized Health Care Education/Training Program
DX: R07.9 Chest pain, unspecified (principal); R07.1 Chest pain on breathing; I12.9 Hypertensive chronic kidney disease with stage 1 through stage 4 chronic kidney disease, or unspecified chronic kidney disease; N18.30 Chronic kidney disease, stage 3 unspecified; I25.2 Old myocardial infarction; I25.10 Atherosclerotic heart disease of native coronary artery without angina pectoris; Z86.73 Personal history of transient ischemic attack (TIA), and cerebral infarction without residual deficits; Z95.0 Presence of cardiac pacemaker; F17.210 Nicotine dependence, cigarettes, uncomplicated
CPT/HCPCS: 36415; 71045; 71275; 80053; 83690; 84484; 85025; 85610; 85730; 93005; 96374; 99284; J1885; J2270; Q9967

== ENCOUNTER 2025-06-01 15:39 | Emergency (ER) | payer MEDICARE, MEDICAID, SELFPAY ==
--- OUTSIDE RECORDS SUMMARY | 2025-05-24 09:26 | XMS_ITS | Continuity of Care Document ---
Author Organization [facility] Address [address] [place] [address] Phone Care Team Providers Care Securities Teller Name Role Phone Mireya GONZALEZ, FAC, Lilia Unavailable Unavail able Allergies, Adverse Reactions, Alerts Substance Reaction Status Criticality OXYCODONE HCL Unknown(moderate) Active No Inform ation acetaminophen Unknown(moderate) Active No Inform ation lorazepam Unknown(moderate) Active No Informa tion Sulfa (Sulfonamide Antibiotics) Unknown(moderate) Acti ve No Information PENICILLIN Unknown(moderate) Active No Informa tion Medications Medication Instructions Dosage Effective Dates (start - stop) Status Comments digoxin 62.5 mcg (0.0625 mg) tablet take 1 tablet by oral route every day 62.5 MCG - Active doxycycline hyclate 100 mg capsule - Active ondansetron 4 mg disintegrating tablet DISSOLVE 1 TABLET ON THE TONGUE EVERY 8 HOURS NEEDED FOR NAUSEA AND VOMITING - Active amlodipine 5 mg tablet TAKE 1 TABLET BY MOUTH EVERY DAY IN THE MORNING - Active clopidogrel 75 mg tablet TAKE 1 TABLET BY MOUTH EVERY DAY IN THE MORNING - Active duloxetine 60 mg capsule,delayed release TAKE 1 CAPSULE BY MOUTH EVERY DAY IN THE MORNING - Active trazodone 100 mg tablet TAKE 1 TABLET BY MOUTH EVERY DAY AT BEDTIME FOR 30 DAYS - Active azithromycin 250 mg tablet TAKE 1 TABLET BY MOUTH EVERY DAY FOR 5 DAYS - Active prednisone 20 mg tablet 20 MG ORALLY TWI CE A DAY FOR 3 DAYS - Active Procedures Procedure Date ICM DEVICE INTERROGAT REMOTE ICD DEVICE INTERROGAT REMOTE PM/ICD REMOTE TECH SERV ICM DEVICE INTERROGAT REMOTE ICM DEVICE INTERROGAT REMOTE ELECTROCARDIOGRAM REPORT TTE W/DOPPLER, COMPLETE ELECTROCARDIOGRAM REPORT SUBSEQUENT HOSPITAL CARE SUBSEQUENT HOSPITAL CARE SUBSEQUENT HOSPITAL CARE SUBSEQUENT HOSPITAL CARE SUBSEQUENT HOSPITAL CARE STUDENT ACCOUNTS COORDINATOR Split Share Billing INITIAL HOSPITAL CARE SUBSEQUENT HOSPITAL CARE STUDENT ACCOUNTS COORDINATOR Split Share Billing ELECTROCARDIOGRAM REPORT ICM DEVICE INTERROGAT REMOTE ICD DEVICE INTERROGAT REMOTE PM/ICD REMOTE TECH SERV ICM DEVICE INTERROGAT REMOTE ICM DEVICE INTERROGAT REMOTE Advance Directives Directive Yes / No Effective Date File Name No Information Encounters Encounter Description Practice Location Reason(s) For Visit Diagnoses Date Provider Providers Copied on Encounter [facility], [address] [place] [address], [id number] , tel: [phone] [facility] Inpt No Information Dec-2 - 5 Saheta Sanjaya. [address] [place], [place], [id number], . tel:[phone] [facility], [address] [place] [address], [id number] , tel: [phone] [facility] No Information Dec-0 8- 5 Saheta Sanjaya. [address] [place], [id number], [place]. tel:[phone] [facility], [address] [place] [address], [id number] , tel: [phone] [facility] [place] No Information Dec-0 6- 5 Kalvaitis Saulius. [address] [place], [id number], . tel:[phone] [facility], [address] [place] [address], [id number] , tel: [phone] [facility] [place] Paroxysmal atrial fibrillationBradyca rdia, unspecifiedSyncope and collapsePresence of automatic (implantable) cardiac defibrillator 5 Mireya Rodrigues. [address] [place], [id number], . tel:[phone] Referring Provider: Lilia Morrell, [address] [place], [address] . tel:[phone] [facility] , [address] [place] [address], [id number] , tel: [phone] [facility] [place] Paroxysmal atrial fibrillationBradyca rdia, unspecifiedSyncope and collapsePresence of automatic (implantable) cardiac defibrillator 5 Mireya Rodrigues. [address] [place], [id number], . tel:[phone] Referring Provider: Lilia Morrell, [address] [place], [address] . tel:[phone] [facility] , [address] [place] [address], [id number] , tel: [phone] [facility] [place] Paroxysmal atrial fibrillationBradyca rdia, unspecifiedSyncope and collapsePresence of automatic (implantable) cardiac defibrillator 5 Mireya Rodrigues. [address] [place], [id number], . tel:[phone] Referring Provider: Lilia Morrell, [address], [place], [address] . tel:[phone] [facility], [address] [place] [address], [id number] , tel: [phone] [facility] [place] Paroxysmal atrial fibrillationBradyca rdia, unspecifiedSyncope and collapsePresence of automatic (implantable) cardiac defibrillator Jan- 5 Mireya Rodrigues. [address] [place], [place], [id number], . tel:[phone] Referring Provider: Lilia Morrell, [address] , [place], [address] . tel:[phone] [facility], [address] [place] [address], [id number] , tel:[phone] [facility] Inpt No Information Jan- 5 Mireya Rodrigues. [address] [place], [place], [id number], . tel:[phone] Referring Provider: Lilia Morrell, [address] , [place], [address] . tel:[phone] [facility], [address] [place] [address], [id number] , tel:[phone] [facility] Inpt No Information Jan- 5 Harrison Bernabe. [address] [place] [address], [id number], . tel:[phone] Referring Provider: Lilia Morrell, [address] [place], [address] . tel:[phone] [facility], [address] [place] [address], [id number] , tel:[phone] [facility] Inpt No Information Jan- 5 Kaldanielitis Saulius. [address] [place], [place], [id number], . tel:[phone] Referring Provider: Lilia Morrell, [address] [place], [address] . tel:[phone] [facility], [address] [place] [address], [id number] , tel: [phone] [facility] Inpt No Information Sep- 5 [facility]. [address], [place], [place], [id number], . tel:[phone] Referring Provider: Lilia Morrell, [address], [place], [address] . tel:[phone] [facility], [address] [place] [address], [id number] , tel: [phone] [facility] Inpt Abnormal electrocardiogram [ECG] [EKG]Abnormal levels of other serum enzymesEssential (primary) hypertension Jan- 5 John Covington. [facility] [address] [place], [id number], . tel:[phone] Referring Provider: Lilia Morrell, [address], [place], [address] . tel:[phone] [facility], [address] [place] [address], [id number] , tel: [phone] [facility] Inpt Abnormal electrocardiogram [ECG] [EKG]Abnormal levels of other serum enzymesEssential (primary) hypertension Jan- 5 [facility]. [facility] [address] [place], [id number], . tel:[phone] Referring Provider: Lilia Morrell, [address], [place], [address] . tel:[phone] [facility], [address] [place] [address], [id number] , tel: [phone] [facility] Inpt Abnormal electrocardiogram [ECG] [EKG]Abnormal levels of other serum enzymesEssential (primary) hypertensionSevere sepsis without septic shockAltered mental status, unspecifiedGastroin testinal hemorrhage, unspecified Jan- 5 Mireya Rodrigues. [facility] [place], [id number], . tel:[phone] Referring Provider: Lilia Morrell, [address] [place], [address] . tel:[phone] [facility] , [address] [place] [address], [id number] , tel: [phone] [facility] Inpt Abnormal electrocardiogram [ECG] [EKG]Abnormal levels of other serum enzymesGastrointest inal hemorrhage, unspecifiedAltered mental status, unspecifiedSevere sepsis without septic shockEssential (primary) hypertension Jan- 5 Jaylenmarlyn Silva. [address] [place], [place], [id number], . tel:[phone] Referring Provider: Lilia Morrell, [facility] [address] , [place], [address] . tel:[phone] [facility] , [address] [place] [address], [id number] , tel: [phone] [facility] Inpt Abnormal electrocardiogram [ECG] [EKG]Abnormal levels of other serum enzymesEssential (primary) hypertensionSevere sepsis without septic shockAltered mental status, unspecifiedGastroin testinal hemorrhage, unspecified Jan- 5 Harrison Bernabe. [facility] [address] [place], [place], [id number], . tel:[phone] Referring Provider: Lilia Morrell, [facility] [address], [place], [address] . tel:[phone] [facility] , [address] [place] [address], [id number] , tel: [phone] [facility] Inpt Abnormal electrocardiogram [ECG] [EKG]Abnormal levels of other serum enzymesEssential (primary) hypertensionSevere sepsis without septic shockAltered mental status, unspecifiedGastroin testinal hemorrhage, unspecified Jan- 5 Bhavna Yuan. [facility] [address] [place], [place], [id number], . tel:[phone] Referring Provider: Lilia Morrell, [address], [place], [address] . tel:[phone] [facility], [address] [place] [address], [id number] , tel: [phone] [facility] Presence of automatic (implantable) cardiac defibrillator 5 Mireya Rodrigues. [address], [place], [place], [id number], . tel:[phone] Referring Provider: Lilia Morrell, [address], [place], [address] . tel: [phone] sulting Provider: Lilia Morrell, [address], [place], [address] . tel:[phone] [facility], [address] [place] [address], [id number] , tel: [phone] [facility] Presence of automatic (implantable) cardiac defibrillator 5 [facility]. [address], [place], [place], [id number], . tel:[phone] Referring Provider: Lilia Morrell, [address], [place], [address] . tel: [phone] sulting Provider: Lilia Morrell, [address], [place], [address] . tel:[phone] [facility], [address] [place] [address], [id number] , tel: [phone] [facility] Presence of automatic (implantable) cardiac defibrillator 5 [facility] L[facility]. [address], [place], [place], [id number], . tel:[phone] Referring Provider: Lilia Morrell, [address], [place], [address] . tel: [phone] sulting Provider: Lilia Morrell, [address], [place], [address] . tel:[phone] [facility], [address] [place] [address], [id number] , tel: [phone] [facility] [place] Presence of automatic (implantable) cardiac defibrillator 5 Benjaminisaac Lilia. [address] [place], [place], [id number], . tel:[phone] Referring Provider: Lilia Morrell, [facility] [place], [address] . [phone] sulting Provider: Lilia Morrell, [facility] [place], [address] . tel:[phone] [facility] , [address] [place] [address], [id number] , tel: [phone] [facility] [place] Supraventricular tachycardia, unspecifiedCerebral atherosclerosisChro esvin diastolic (congestive) heart failurePersonal history of nicotine dependenceCVAAthero sclerosis of aortaOther ventricular tachycardiaHyperlip idemia, unspecifiedFatigueC AD 5 Kalvaitis Saulius. [facility] [address] [place], [place], [id number], . tel:[phone] Referring Provider: Lilia Morrell, [facility] [place], [address] . tel:[phone] Family History Family Member Type Diagnosis Age At Onset No Information Payers Payer name Insurance type Covered green party ID Authoroleksandra tiobed(s) [facility] [id number] PPO C [id number] Social History Type Description Quantity Date Captured Comments Sex Female Smoking Status No Information Chief Complaint And Reason For Visit No Information Reason For Referral Reason For Referral No Information History Of Present Illness Encounter Date Complaint History Of Prese nt Illness No Information Functional Status Date Functional Assessmen t No Information Instructions Date Instruction Additional Infor mation No Information Assessments Type Assessment Date No Information Patient Care Teams Name Effective Dates (start - stop) Status Members No Information
--- NOTE | ~2025-06-01 | XR_ITS ---
EXAMINATION: XR chest 1V portable DATE: 06/01/2025 16:37 INDICATION: Chest pain TECHNIQUE: frontal view of the chest was obtained. COMPARISON: Chest radiograph and CT dated 03/15/2025 FINDINGS: Hyperexpansion lungs with increased lucency in the upper lung zones consistent with emphysema better appreciated on prior CT. Thin triangular retrocardiac opacity in the left lower lung zone which could represent atelectasis or pneumonia. Right lung remains clear. No pulmonary edema, pleural effusion or pneumothorax. Heart size is normal. Atherosclerotic aorta. Dual lead pacemaker/AICD seen with leads projecting over the expected locations of the right atrium and right ventricle. Mild S-shaped curvature of the thoracic spine. IMPRESSION: 1. Retrocardiac opacity left lower lung zone which could represent atelectasis or pneumonia. Reviewed, dictated and finalized at location A. 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
--- OUTSIDE RECORDS SUMMARY | 2025-06-01 15:43 | XMS_ITS | Clinical Summary ---
Author Organization [facility] [address] Address [address] [place] [address] Care Team Providers Care Dna Analyst Name Role Phone Karan Snyder MD Unavailable [phone] Wesley Loaiza Primary Care Provider + Lilia Gomes MD Unavailable [phone] Mando Acuña MD Unavailable [phone] Larry Gregory MD Unavailable [phone] Nixon Casey MD Unavailable Renan Espino [...] obstructive pulmonary disease) ([facility]) 07/11/2020 Assessment & Plan (07/11/2020 7:26 PM METAL TECHNICIAN): Not in exacerbation. Prn duo-nebs. HCAP (healthcare-associated pneumonia) 0 MARIELA (acute kidney injury) ([facility]) 12/01/2019 Hepatitis 12/01/2019 Multiple skin nodules 12/01/2019 Chest pain 11/30/2019 Overview (12/01/2019): Added automatically from request for surgery [id number] Assessment & Plan (07/11/2020 7:20 PM METAL TECHNICIAN): Suspect fibromyalgia related but need to r/o acs. Troponin levels of 12, 10, continue serial readings. EKG A-paced 71. Pacer interrogated today w/o any events recorded. Cardiology has been consulted for which we appreciate their evaluation and recommendations. Telemetry monitoring. Prn dilaudid. Resumed ranexa, naproxen and asa. Esophageal dysphagia 09/26/2019 Overview (09/27/2019): Added automatically from request for surgery [id number] Severe malnutrition ([facility]) 07/19/2019 Acute CVA (cerebrovascular accident) 07/17/2019 Assessment & Plan (07/17/2019 2:49 PM METAL TECHNICIAN): S/p TPA. CT and CTA as noted [...] evaluation and recommendations. Telemetry monitoring. History of SD (myocardial infarction) 10/02/2018 Chronic CHF ([facility]) 10/02/2018 Assessment & Plan (07/11/2020 7:25 PM METAL TECHNICIAN): Appears compensated. Last echo from 07/2019 with diastolic dysfunction Grade 1, EF 70%. Home medications listed above. Cardiology following. Assessment & Plan (09/26/2019 6:32 PM CDT): S/p AICD placement 2015. Echo 07/2019 with impaired diastolic dysfunction Grade 1 with EF 70%. On ASA, statin, coreg, zetia and prn nitro. Assessment & Plan (07/17/2019 2:50 PM METAL TECHNICIAN): Echo from 08/2018 with diastolic dysfunction Grade 1, EF 55%. AICD (automatic cardioverter/defibrillator) pres ent 10/02/2018 CKD (chronic kidney disease) 10/02/2018 Hypertension 10/02/2018 Hyperlipidemia 10/02/2018 Depression 10/02/2018 History of CVA (cerebrovascular accident) 2018 Assessment & Plan (07/17/2019 2:52 PM METAL TECHNICIAN): With residual left sided weakness prior to acute cva today. Migraines 10/02/2018 Assessment & Plan (09/26/2019 6:33 PM CDT): Topamax. Assessment & Plan (07/17/2019 2:52 PM METAL TECHNICIAN): On Topamax and Imitrex. Leukocytosis 10/02/2018 Gastrointestinal hemorrhage 10/02/2018 Overview (10/03/2018): Added automatically from request for surgery Depression 09/25/2018 Assessment & Plan (07/11/2020 7:24 PM METAL TECHNICIAN): Remeron and Cymbalta. Musculoskeletal chest pain 09/22/2018 Moderate protein-calorie malnutrition 09/09/2018 AICD (automatic cardioverter/defibrillator) pres ent 09/08/2018 Overview (04/21/2019): Biotronik ICD has followed with [facility] History of atrial fibrillation 09/08/2018 Assessment & Plan (07/11/2020 7:23 PM METAL TECHNICIAN): S/p AICD placement. EKG a-paced. On Xarelto, coreg and asa. Telemetry monitoring. SLE (systemic lupus erythema tosus related syndrome) ([facility]) 09/08/2018 Assessment & Plan (07/11/2020 7:24 PM METAL TECHNICIAN): Prednisone and Naproxen. Assessment & Plan (09/26/2019 6:32 PM CDT): Prn analgesics. Assessment & Plan (07/17/2019 2:58 PM METAL TECHNICIAN): Not in exacerbation. Prn analgesics. History of ventricular tachycardia 09/08/2018 Coronary arteriosclerosis in [place] artery 10/15 Overview (09/06/2016): Coronary artery disease of [place] artery of [place] heart with stable angina pectoris Assessment & Plan (07/11/2020 7:22 PM METAL TECHNICIAN): S/p stenting to RCA, LAD and OM. On ASA, zetia and atorvastatin. Assessment & Plan (09/26/2019 6:28 PM CDT): S/p KEITH to LAD 2012. On ASA and Brilinta. Assessment & Plan (07/17/2019 2:58 PM METAL TECHNICIAN): S/p stenting to LAD 2012. Normally on Brilinta and asa. S/p AICD placement. Presence of stent in coronary artery 10/16/2015 Overview (09/06/2016): History of coronary artery stent placement Fatigue 10/16/2015 Overview (09/06/2016): Fatigue, unspecified type NSTEMI (non-ST elevated myocardial infarction) 0 10/16/2015 Overview (09/06/2016): Old SD (myocardial infarction) Angina pectoris 10/16/2015 Overview (09/06/2016): Angina pectoris Hypertension 10/16/2015 Overview (09/06/2016): Resistant hypertension Assessment & Plan (07/11/2020 7:23 PM METAL TECHNICIAN): Controled on Aldactone, Nifedipine, Hyzaar, clonidine and coreg. Monitor. Assessment & Plan (09/26/2019 6:28 PM CDT): Stable. On Coreg. Assessment & Plan (07/17/2019 2:50 PM METAL TECHNICIAN): Stable. On five anti-hypertensive's. Will hold d/t hypotension and acute stroke. Monitor closely. Ventricular premature beats 10/16/2015 Overview (09/06/2016): PVCs (premature ventricular contractions) History of stroke 10/16/2015 Overview (09/06/2016): History of stroke Hypercholesterolemia 10/16/2015 Overview (09/06/2016): Hypercholesterolemia Assessment & Plan (09/26/2019 6:29 PM CDT): On statin and zetia. Assessment & Plan (07/17/2019 2:52 PM METAL TECHNICIAN): Zetia. Former smoker 10/16/2015 Overview (09/06/2016): Former smoker Assessment & Plan (07/11/2020 7:26 PM METAL TECHNICIAN): Reports quit 4 years ago. Assessment & Plan (07/17/2019 2:54 PM METAL TECHNICIAN): Quit four years ago. Urinary tract infection 05/16/2015 Hydronephrosis 03/23/2015 Lupus erythematosus 02/28/2015 Malignant neoplasm of urinary bladder 02/28/2015 Fibromyalgia Assessment & Plan (07/11/2020 7:22 PM METAL TECHNICIAN): Gabapentin and prn analgesics. Monitor. Assessment & Plan (07/17/2019 2:59 PM METAL TECHNICIAN): Lyrica. Prn analgesics. Chronic pain syndrome Vasovagal syncope Nausea and vomiting Colitis Encounters Date Type Department Care Team Description 03/08/2025 Orders Only [facility] Health Information Management [address] [place] [address] Scanning, Provider 03/01/2025 Orders Only [facility] Cardiology [address] [place] [address] Lila Argueta MD from Last 3 Months Immunizations Immunization Administration [...] Medical 2015 bladder cancer, Zahira Diaz.; Comments: PETRA 10/16/2015 - Coronary artery disease Hypertension Migraines Lupus Depression SD (myocardial infarction) (HCC) Cancer (HCC) A-fib (HCC) [...] often do you attend chur ch or confucianism services? More than 4 times per year 02/04/2023 Do you belong to any clubs o r organizations such as jew groups, unions, fraternal or athletic groups, or [...] medical appointments or from getting medications? No 09/0 09/2022 In the past 12 months, has [...] place to sleep or slept in a usp (including now)? No 02/04/2023 Personal Safety Answer Date Recorded Have you ever been in or are you currently in a harmful physical or emotional relationship or is someone making you feel afraid or unsafe? Denies 02/12/2025 Comments No Sex and Gender Information Value Date Recorded Sex Assigned at Not on file Legal Sex Female 1:55 AM METAL TECHNICIAN Gender Identity Not on file Sexual [...] 11/13/2021, 10/05/2018 Medical Devices Implanted Type Area Tool Operator Device Identifier Shelf Expiration Date Model / Serial / Lot Biotech ICD Chest [employer]ot[employer]ik [employer] [id number] Angio-Seal Evolution 6fr .035in Guidewire Bypass Tube Suture - [id number] Implanted:Qty: 1 on 01/31/2020 by Robb Wilson MD at [facility] [employer] 07/30/2020 [id number] / / [id number] Procedures Procedure Name Priority Date/Time Associated Diagnosis Comments CARDIOLOGY DOCUMENT SCAN 03/08/2025 9:29 PM CDT COLONOSCOPY 11/13/2021 2:19 PM CDT HEPATITIS PANEL, ACUTE Routine 11/10/2021 3:29 PM CDT from Last 3 Months or Most Recently Relevant to Health Maintenance Results * Cardiology Document Scan (03/08/2025 9:29 PM CDT) Anatomical Region Laterality Modality Other us Provider Scanning CV CARDIAC SERVICES PROCEDURES Final Result * COLONOSCOPY (11/13/2021 2:19 PM CDT) Anatomical Region Laterality Modality Other Narrative Procedure Note Renan Espino MD - 11/13/2021 2:19 PM CDT [facility] End[facility] Lab Patient Name: Teagan Sigala Procedure Date: 11/13/2021 2:19 PM Date of : 1950 Admit Type: Inpatient Age: 71 Gender: Female Note Status: Finalized Attending MD: Renan Espino M.D. Procedure Date: 11/13/2021 Procedure: Colonoscopy Indications: Generalized abdominal pain, , Abnormal CT of the GI tract (colon wall thickening), Providers: Renan Espino M.D., Ned Wesley RN,Renetta Alcocer, MACHO, Eliu Britton CRNA (Anesthesia Staff), Andrew Henderson, Faculty Support Coordinator Referring MD: Crystal Zavala Medicines: Monitored Anesthesia [...] not recommended. Procedure Code(s): --- Professional --- 90828, Colonoscopy, flexible; with biopsy, singleor multiple Diagnosis Code(s): --- Professional --- D12.5, Benign neoplasm of sigmoid colon D12.3, Benign neoplasm of transverse colon (hepatic flexure or splenic flexure) K55.20, Angiodysplasia of colon withouthemorrhage R10.84, Generalized abdominal pain K57.30, Diverticulosis of large intestine without perforation or abscess without bleeding R93.3, Abnormal findings on diagnostic imaging of other parts of digestive tract CPT copyright 2020 [employer]. All rights reserved. The codes documented in this report are preliminary and upon manager user experience reviewmay be revised to meet current compliance [...] revised on 2019. HepBsAg Nonreactive Nonreactive FLORINA HOOKER Blood 11/10/2021 3:29 PM CDT 11/10/2021 3:32 PM CDT Renan Espino MD LAB MICROBIOLOGY - [facility] ORDERABLES Final Result FLORINA HOOKER [id number] [place] [address] from Last 3 Months or Most Recently Relevant to Health Maintenance [facility] MEDICARE ADVANTAGE MEDICARE [facility] IDIL [facility] MEDICARE ADVANTAGE [facility] Address: [address] [address] [place] [address] Advance Directives For more information, please contact: [phone] Documents on File Type Date Recorded Patient Manual Training Teacher Expl anation ADVANCE DIRECTIVE 09/23/2018 9:15 AM BONNY TAYLOR ADVANCE DIRECTIVE 09/23/2018 9:13 AM POWER OF FLOATING LABOR GANG SUPERVISOR-MEDICAL ADVANCE DIRECTIVE 09/23/2018 9:13 AM POWER OF FLOATING LABOR GANG SUPERVISOR-MEDICAL * Full Code (Latest Code Status on [...] Agents on File Name Relationship Healthcare Agent [facility] Communication Maxi العلي Health Care Agent Care Teams Dna Analyst Relationship Specialty Start Date End Date Wesley Loaiza PA [address] [place] [address] PCP - General 09/07/18 Karan Snyder MD Consulting Physician Cardiology 05/19/17 Lilia Gomes MD [address] [place] [address] Consulting Physician Cardiovascular Disease 09/08/18 Mando Acuña MD [address] [place] [address] Consulting Physician Cardiology 10/05/18 Larry Gregory MD [address] [place] [address] Consulting Physician Internal Medicine 07/29/19 Nixon Casey MD [address] [place] [address] Consulting Physician Gastroenterology 09/28/19 [place] [id number] [address] Consulting Physician Gastroenterology 11/13/21
--- OUTSIDE RECORDS SUMMARY | 2025-06-01 15:43 | XMS_ITS ---
Author Organization [facility] [address] Address [address] [place] [address] Care Team Providers Care Vp Customer Service Name Role Phone Karan Snyder MD Unavailable [phone] Wesley Loaiza Primary Care Provider + Lilia Gomes MD Unavailable Mando Acuña MD Unavailable [phone] Larry Gregory MD Unavailable [phone] Nixon Casey MD Unavailable Renan Espino MD Unavailable Active Problems Problem Noted Date Diagnosed Date Chest pain, unspecified type 11/29/2023 Intraparenchymal hemorrhage of brain 11/23/2023 Left-sided chest pain 11/11/2023 Small bowel obstruction 02/03/2023 Hypokalemia 11/12/2021 Abdominal pain 11/09/2021 Thoracic back pain 01/10/2021 Toxic metabolic encephalopathy 07/13/2020 COPD (chronic obstructive pulmonary disease) ([facility] S/HCC) 07/11/2020 Assessment & Plan (07/11/2020 7:26 PM PORTABLE SAWYER): Not in exacerbation. Prn duo-nebs. HCAP (healthcare-associated pneumonia) 0 MARIELA (acute kidney injury) ([facility]) 12/01/2019 Hepatitis 12/01/2019 Multiple skin nodules 12/01/2019 Chest pain 11/30/2019 Overview (12/01/2019): Added automatically from request for surgery [id number] Assessment & Plan (07/11/2020 7:20 PM PORTABLE SAWYER): Suspect fibromyalgia related but need to r/o acs. Troponin levels of 12, 10, continue serial readings. EKG A-paced 71. Pacer interrogated today w/o any events recorded. Cardiology has been consulted for which we appreciate their evaluation and recommendations. Telemetry monitoring. Prn dilaudid. Resumed ranexa, naproxen and asa. Esophageal dysphagia 09/26/2019 Overview (09/27/2019): Added automatically from request for surgery [id number] Severe malnutrition ([facility]) 07/19/2019 Acute CVA (cerebrovascular accident) 07/17/2019 Assessment & Plan (07/17/2019 2:49 PM PORTABLE SAWYER): S/p TPA. CT and CTA as noted [...] evaluation and recommendations. Telemetry monitoring. History of CT (myocardial infarction) 10/02/2018 Chronic CHF ([facility]) 10/02/2018 Assessment & Plan (07/11/2020 7:25 PM PORTABLE SAWYER): Appears compensated. Last echo from 07/2019 with diastolic dysfunction Grade 1, EF 70%. Home medications listed above. Cardiology following. Assessment & Plan (09/26/2019 6:32 PM CDT): S/p AICD placement 2016. Echo 07/2019 with impaired diastolic dysfunction Grade 1 with EF 70%. On ASA, statin, coreg, zetia and prn nitro. Assessment & Plan (07/17/2019 2:50 PM PORTABLE SAWYER): Echo from 08/2018 with diastolic dysfunction Grade 1, EF 55%. AICD (automatic cardioverter/defibrillator) pres ent 10/02/2018 CKD (chronic kidney disease) 10/02/2018 Hypertension 10/02/2018 Hyperlipidemia 10/02/2018 Depression 10/02/2018 History of CVA (cerebrovascular accident) 2018 Assessment & Plan (07/17/2019 2:52 PM PORTABLE SAWYER): With residual left sided weakness prior to acute cva today. Migraines 10/02/2018 Assessment & Plan (09/26/2019 6:33 PM CDT): Topamax. Assessment & Plan (07/17/2019 2:52 PM PORTABLE SAWYER): On Topamax and Imitrex. Leukocytosis 10/02/2018 Gastrointestinal hemorrhage 10/02/2018 Overview (10/03/2018): Added automatically from request for surgery Depression 09/25/2018 Assessment & Plan (07/11/2020 7:24 PM PORTABLE SAWYER): Remeron and Cymbalta. Musculoskeletal chest pain 09/22/2018 Moderate protein-calorie malnutrition 09/09/2018 AICD (automatic cardioverter/defibrillator) pres ent 09/08/2018 Overview (04/21/2019): Biotronik ICD has followed with [facility] History of atrial fibrillation 09/08/2018 Assessment & Plan (07/11/2020 7:23 PM PORTABLE SAWYER): S/p AICD placement. EKG a-paced. On Xarelto, coreg and asa. Telemetry monitoring. SLE (systemic lupus erythema tosus related syndrome) ([facility]) 09/08/2018 Assessment & Plan (07/11/2020 7:24 PM PORTABLE SAWYER): Prednisone and Naproxen. Assessment & Plan (09/26/2019 6:32 PM CDT): Prn analgesics. Assessment & Plan (07/17/2019 2:58 PM PORTABLE SAWYER): Not in exacerbation. Prn analgesics. History of ventricular tachycardia 09/08/2018 Coronary arteriosclerosis in [place] artery 10/15 Overview (09/06/2016): Coronary artery disease of [place] artery of [place] heart with stable angina pectoris Assessment & Plan (07/11/2020 7:22 PM PORTABLE SAWYER): S/p stenting to RCA, LAD and OM. On ASA, zetia and atorvastatin. Assessment & Plan (09/26/2019 6:28 PM CDT): S/p KEITH to LAD 2011. On ASA and Brilinta. Assessment & Plan (07/17/2019 2:58 PM PORTABLE SAWYER): S/p stenting to LAD 2011. Normally on Brilinta and asa. S/p AICD placement. Presence of stent in coronary artery 10/16/2015 Overview (09/06/2016): History of coronary artery stent placement Fatigue 10/16/2015 Overview (09/06/2016): Fatigue, unspecified type NSTEMI (non-ST elevated myocardial infarction) 0 10/16/2015 Overview (09/06/2016): Old CT (myocardial infarction) Angina pectoris 10/16/2015 Overview (09/06/2016): Angina pectoris Hypertension 10/16/2015 Overview (09/06/2016): Resistant hypertension Assessment & Plan (07/11/2020 7:23 PM PORTABLE SAWYER): Controled on Aldactone, Nifedipine, Hyzaar, clonidine and coreg. Monitor. Assessment & Plan (09/26/2019 6:28 PM CDT): Stable. On Coreg. Assessment & Plan (07/17/2019 2:50 PM PORTABLE SAWYER): Stable. On five anti-hypertensive's. Will hold d/t hypotension and acute stroke. Monitor closely. Ventricular premature beats 10/16/2015 Overview (09/06/2016): PVCs (premature ventricular contractions) History of stroke 10/16/2015 Overview (09/06/2016): History of stroke Hypercholesterolemia 10/16/2015 Overview (09/06/2016): Hypercholesterolemia Assessment & Plan (09/26/2019 6:29 PM CDT): On statin and zetia. Assessment & Plan (07/17/2019 2:52 PM PORTABLE SAWYER): Zetia. Former smoker 10/16/2015 Overview (09/06/2016): Former smoker Assessment & Plan (07/11/2020 7:26 PM PORTABLE SAWYER): Reports quit 4 years ago. Assessment & Plan (07/17/2019 2:54 PM PORTABLE SAWYER): Quit four years ago. Urinary tract infection 05/16/2015 Hydronephrosis 03/23/2015 Lupus erythematosus 02/28/2015 Malignant neoplasm of urinary bladder 02/28/2015 Fibromyalgia Assessment & Plan (07/11/2020 7:22 PM PORTABLE SAWYER): Gabapentin and prn analgesics. Monitor. Assessment & Plan (07/17/2019 2:59 PM PORTABLE SAWYER): Lyrica. Prn analgesics. Chronic pain syndrome Vasovagal [...]
--- OUTSIDE RECORDS SUMMARY | 2025-06-01 15:43 | XMS_ITS | Encounter Summary ---
Author Organization [facility] Address [address] [place] [address] Care Team Providers Care Railroad Switchman Name Role Phone Thierry Chadwick DO Primary Care Provider [phone] Karan Snyder MD Unavailable [phone] Wesley Loaiza Primary Care Provider + Lilia Gomes MD Unavailable [phone] Mando Acuña MD Unavailable [phone] Ruben San GRIDDLE ATTENDANT Unavailable [phone] Maico Ellison TRIPE WASHER Unavailable Dorian Del Rio DNP Unavailable Larry Gregory MD Unavailable [phone] Nixon Casey MD Unavailable Renan Espino MD Unavailable Encounter Details Date Type Department Care Team (Late st Contact Info) Description 05/20/2017 Documentation [id number] [place] [address] Kaylah Guerra Social History Tobacco Use Types Packs/Day Years Used Date Smoking Tobacco: Former Smokeless Tobacco: Never Alcohol Use Standard Drinks/Week Comments Not Asked 0 (1 standard drink = 0.6 oz pur e alcohol) Comments No Sex and Gender Information Value Date Recorded Sex Assigned at Not on file Legal Sex Female 1:55 AM RETAIL ROUTE SUPERVISOR Gender Identity Not on file Sexual Orientation [...] CDT COVID19 04/05/2022 04/05/2022 04/15/2022 3:05 AM RETAIL ROUTE SUPERVISOR COVID: Recovered Comment:Added based on recent COVID infection. 04/15/2022 05/17/2022 07/14/2022 3:05 AM RETAIL ROUTE SUPERVISOR COVID: Suspected 05/17/2022 05/17/2022 05/17/2022 5:25 PM RETAIL ROUTE SUPERVISOR COVID: Suspected 02/03/2023 02/03/2023 02/03/2023 12:10 PM CDT COVID: Suspected 02/28/2024 02/28/2024 02/28/2024 6:24 PM CDT documented as of this encounter Care Teams Railroad Switchman Relationship Specialty Start Date End Date Thierry Chadwick DO PCP - General 04/20/13 09/06/18 Wesley Loaiza PA [address] [place] [address] PCP - General 09/07/18 Karan Snyder MD Consulting Physician Cardiology 05/19/17 Lilia Gomes MD [address] [place] [address] Consulting Physician Cardiovascular Disease 09/08/18 Mando Acuña MD [address] [place] [address] Consulting Physician Cardiology 10/05/18 Ruben San, GRIDDLE ATTENDANT [address] [facility] [address] [place] [place] [address] [facility] Outpatient Raw Stock Dyeing Machine Tender 10/07/18 03/13/20 Maico Ellison, TRIPE WASHER [address] [facility] [address] [place] [address] [facility] Outpatient Raw Stock Dyeing Machine Tender 10/07/18 03/13/20 Dorian Del Rio DNP [id number] [facility] [address] [place] [address] Nurse Practitioner Internal Medicine 10/07/18 03/13/20 [place] [address] [facility] [address] [place] [address] Consulting Physician Internal Medicine 07/29/19 [place] [address] [facility] [address] [place] [address] Consulting Physician Gastroenterology 09/28/19 [place] [address] [place] [address] Consulting Physician Gastroenterology 11/13/21 documented as of this encounter
--- OUTSIDE RECORDS SUMMARY | 2025-06-01 15:43 | XMS_ITS | Clinical Summary ---
Author Organization [facility] Address [address] [place] [address] Care Team Providers Care Production Control Clerk Name Role Phone Cm Loaiza APRN-BLACK OFF WORKER Primary Care Provider Source Comments [facility],non-owned Affiliates and Associated Physician Practices is amultiple site organization consisting of ambulatory clinics and hospital sitesin [place], [place], [place] and [place]. This disclosure is being madepursuant to the Care Everywhere program and may not contain all information available regarding this patient. Last updated 18.[facility] [place] Allergies Active Allergy Reactions Criticality Noted Date [...] Recorded Patient Health Questionnaire-2 Score 0 05/02/2024 [facility] [place] [facility] Occupat ional Health - Occupational Stress [...] any time in the past [address] [facility], were you homeless or living in a [facility] (including now)? Patient declined 04/29/2024 Comments No Sex and Gender Information Value Date Recorded Sex Assigned at Not on file Legal Sex Female 6:19 AM ADDRESSING MACHINE OPERATOR Gender Identity Not on file Sexual Orientation Not on file Last Filed Vital Signs Vital Sign Reading Time Taken Comments Blood Pressure 149/60 05/03/2024 7:50 AM ADDRESSING MACHINE OPERATOR Pulse 76 05/03/2024 8:09 AM ADDRESSING MACHINE OPERATOR Temperature 36.7 C (98.1 F) 05/03/2024 7:50 AM ADDRESSING MACHINE OPERATOR Respiratory Rate 18 05/03/2024 8:09 AM ADDRESSING MACHINE OPERATOR Oxygen Saturation 94% 05/03/2024 8:09 AM ADDRESSING MACHINE OPERATOR Inhaled Oxygen Concentration - - Weight 47 kg (103 lb 9.6 oz) 04/28/2024 9:50 PM ADDRESSING MACHINE OPERATOR Height 162.6 cm (5' 4) 04/28/2024 1:58 PM ADDRESSING MACHINE OPERATOR Body Mass Index 17.78 04/28/2024 1:58 PM ADDRESSING MACHINE OPERATOR Plan of Treatment Health Maintenance Due Date Last Done Comments BONE DENSITY TESTING 1950 COLOGUARD (AGES 45-75) - COLON CA SCREENING 1949 CT COLONOGRAPHY - COLON CA SCREENING 1949 FIT - COLON CA SCREENING 1949 FLEX SIG - COLON CA SCREENING 1950 MAMMOGRAM 1950 DTAP/TDAP/TD VACCINES (1 - Tdap) 1968 PNEUMOCOCCAL VACCINE 50+ (1 of 1 - PCV) 1999 ZOSTER VACCINE (1 of 2) 1999 DEPRESSION [...] this topic Medical Devices Implanted Type Area Auctioneer Automobile Device Identifier Shelf Expiration Date Model / Serial / Lot Biotronik Iperia 7 Dr-T- 6 Implanted:06/2015 (Quantity not on file) ICD Left: Chest / [id number] / Implant Lead Rv [id number]-1 07/03/2015 Implanted:06/2015 (Quantity not on file) Implant Lead Ventricle Biotronik [id number] / [id number] / Implant [id number] Implanted:06/2015 (Quantity not on file) Implant Lead Atrium Biotronik [id number] / [id number] / Procedures Procedure Name Priority Date/Time Associated [...] CDT Narrative Resulting Agency Comment Performed By [facility] - [facility] [address] [place] [address] us Nathanael Callejas MD LAB - CHEMISTRY ORDERABLES F inal Result Performing Organization Address City/State/[facility] Co de Phone Number [facility] [address] [place] [address] from Last 3 Months or Most Recently [...] 11:58 AM 09/29/2020 5:54 PM Care Teams Production Control Clerk Relationship Specialty Start Date End Date Cm Loaiza, ERNIE-BLACK OFF WORKER [address] [place] [id number] PCP - General Nurse Practitioner 02/09/21
--- NOTE | 2025-06-01 15:57 | ED.CHESTPAIN ---
HPI - Chest Pain General Chief Complaint: Chest Pain <DESI Hernandez Last Filed: 06/01/25 16:02> Stated Complaint: right sided chest pain <DESI Hernandez Last Filed: 06/01/25 16:02> Time Seen by Provider: 06/01/25 15:50 <DESI Hernandez Last Filed: 06/01/25 16:02> Focused HPI: Patient is a 74-year-old female, with PMH of CKD, COPD, SLE, pacemaker, who presents to the ED via EMS with c/o chest pain. Patient reports she had intermittent right-sided chest pain yesterday. States it became worse throughout the night and has been more constant today which prompted her to contact EMS. Radiates into her right arm. Has been feeling short of breath. Also reports history of nausea, headache. Patient is well known to our facility. Is commonly seen here for similar complaints. Is frequently found to have bedbug infestations. Per records, patient underwent cardiac catheterization on 02/28/2025 which showed nonobstructive CAD, required no intervention. GENERAL: Disheveled/unkempt, thin, non-toxic, in no acute distress. HEAD: Normocephalic, atraumatic. RESPIRATORY: Airway patent, respirations nonlabored. CARDIOVASCULAR: Regular rate and rhythm MUSCULOSKELETAL: Moves all extremities. No gross deformities. SKIN: Warm, dry, normal color. NEURO: A&O X3. Speech clear. Cranial nerves II-XII grossly intact. Steady gait. No ataxic movements. Patient screened in triage and initial orders placed.? ?Additional care and disposition to be based upon?diagnostic testing and treatment. <DESI Hernandez Last Filed: 06/01/25 16:02> Source: patient <DESI Hernandez Last Filed: 06/01/25 16:02> Mode of arrival: EMS <DESI Hernandez Last Filed: 06/01/25 16:02> Limitations: no limitations <DESI Hernandez Last Filed: 06/01/25 16:02> Related Data Home Medications: Home Medications ?Medication ?Instructions ?Recorded ?Confirmed ?Last Taken ?Type prednisone 10 mg tablet 5 mg PO DAILY Shortness Of Breath 09/20/20 02/14/25 Unknown History Or Wheezing albuterol sulfate 90 mcg/actuation 90 mcg inhalation QID PRN 08/16/22 02/14/25 Unknown History aerosol inhaler Shortness Of Breath gabapentin 100 mg capsule 100 mg PO DAILY 08/16/22 02/14/25 03/13/24 History losartan 100 mg tablet 100 mg PO DAILY 08/16/22 02/14/25 03/13/24 History Held on 03/02/25. Instructions: Resume on 03/07/25. Hold until follow-up with your primary care provider and your kidney function is rechecked mirtazapine 15 mg tablet 15 mg PO QHS 08/16/22 02/14/25 03/13/24 History nitroglycerin 0.4 mg sublingual 0.4 mg sublingual BID PRN Chest 08/16/22 02/14/25 Unknown History tablet Pain sumatriptan succinate 100 mg tablet 100 mg PO BID PRN Headache 08/16/22 02/14/25 Unknown History aspirin 81 mg tablet,delayed 81 mg PO DAILY 11/25/22 02/14/25 03/13/24 History release nortriptyline 10 mg capsule 10 mg PO HS 08/23/23 02/14/25 03/12/24 History tizanidine 4 mg tablet 4 mg PO QID PRN Back Pain 08/23/23 02/14/25 03/13/24 History trazodone 100 mg tablet 100 mg PO HS 08/23/23 02/14/25 03/13/24 History apixaban 2.5 mg tablet (Eliquis) 2.5 mg PO BID 03/14/24 02/14/25 03/13/24 History oxycodone-acetaminophen 7.5 mg-325 1 tablet PO BID PRN Pain 03/14/24 02/14/25 Unknown History mg tablet albuterol sulfate 90 mcg/actuation 1 inh inhalation QID PRN shortness 02/26/25 02/26/25 Unknown History aerosol inhaler of breath or wheezing apixaban 2.5 mg tablet (Eliquis) 2.5 mg PO BID 02/26/25 02/26/25 02/25/25 10:00 History aspirin 81 mg tablet,delayed 81 mg PO DAILY 02/26/25 02/26/25 02/25/25 10:00 History release (Adult Aspirin Regimen) gabapentin 100 mg capsule 100 mg PO DAILY 02/26/25 02/26/25 02/25/25 10:00 History losartan 100 mg tablet 100 mg PO DAILY 02/26/25 02/26/25 02/25/25 10:00 History Held on 03/02/25. Instructions: Resume on 03/07/25. mirtazapine 15 mg tablet 15 mg PO HS 02/26/25 02/26/25 02/25/25 22:00 History nitroglycerin 0.4 mg sublingual 0.4 mg sublingual Q5M PRN chest 02/26/25 02/26/25 02/26/25 02:45 History tablet pain nortriptyline 10 mg capsule 10 mg PO HS 02/26/25 02/26/25 02/25/25 22:00 History ondansetron 4 mg disintegrating 4 mg translingual Q8H PRN nausea 02/26/25 02/26/25 02/25/25 20:15 History tablet and vomiting oxycodone-acetaminophen 7.5 mg-325 1 tablet PO BID PRN pain (scale 02/26/25 02/26/25 02/25/25 14:00 History mg tablet score 7-10) pantoprazole 40 mg tablet,delayed 40 mg PO QAM 02/26/25 02/26/25 02/25/25 10:00 History release prednisone 5 mg tablet 5 mg PO DAILY 02/26/25 02/26/25 02/25/25 10:00 History sumatriptan succinate 100 mg 100 mg PO BID PRN migraine headache 02/26/25 02/26/25 Unknown History tablet (Imitrex) tizanidine 4 mg tablet 4 mg PO QID PRN muscle spasticity 02/26/25 02/26/25 Unknown History trazodone 100 mg tablet 100 mg PO HS 02/26/25 02/26/25 02/25/25 22:00 History <Kaylah Sanchez PA-C - Last Filed: 06/01/25 16:02> Allergies/Adverse Reactions: Allergies Allergy/AdvReac Type Severity Reaction Status Date / Time amphetamine (From Adderall) Allergy Unknown Unknown Verified 06/01/25 17:41 dextroamphetamine (From Allergy Unknown Unknown Verified 06/01/25 17:41 Adderall) lorazepam Allergy Unknown Agitated Verified 06/01/25 17:41 Penicillins Allergy Unknown Swelling Verified 06/01/25 17:41 of Lip/Tongue/Throat Sulfa (Sulfonamide AdvReac Unknown Nausea Verified 06/01/25 17:41 Antibiotics) <Kaylah Sanchez PA-C - Last Filed: 06/01/25 16:02> Review of Systems Review of Systems: All systems reviewed & are unremarkable except as noted in HPI and below <Mel Gonzalez PA-C - Last Filed: 06/01/25 18:21> [facility] Past Medical History Medical History: Medical History CKD (chronic kidney disease) stage 3, GFR 30-59 ml/min Carotid stenosis Bladder neoplasm of uncertain malignant potential Malingering Hyperlipidemia Hypertension GI bleed Gastroesophageal reflux disease Cerebrovascular accident Per patient reports, she had 2 or 3 strokes, the last being in April 2019 although not well documented. Chronic obstructive pulmonary disease Coronary artery disease Cerebral atherosclerosis Lupus Patient states she has lupus, not well documented. Fibromyalgia Questionable history of fibromyalgia Anxiety Depression Systemic lupus erythematosus Hyperpituitarism Left foot drop Osteoporosis Bladder cancer Arthritis Renal cancer Gastric ulcer Bronchitis Myocardial infarction Peripheral neuropathy Meningitis Early satiety Chronic iron deficiency anemia <Kaylah Sanchez PA-C - Last Filed: 06/01/25 16:02> Surgical History Surgical History: Surgical History History of incision and drainage (06/2022) Right groin abscess. Right groin abscess had been due to perforation of bowel into the incarcerated hernia earlier in the same hospitalization History of resection of small bowel (06/20/22) Small-bowel resection with repair of incarcerated right inguinal hernia. History of bilateral breast reduction surgery History of cardiac defibrillator placement Reportedly for ventricular tachycardia. History of heart artery stent History of hysterectomy History of cholecystectomy History of tonsillectomy History of cardiac catheterization <Kaylah Sanchez PA-C - Last Filed: 06/01/25 16:02> Family History Family History: Family History Mother Myocardial infarct Cardiovascular disease Hypertension CHF (congestive heart failure) Father Hypertension Father Hypertension Mother Hypertension Family history of cardiovascular disease <DEIS Hernandez Last Filed: 06/01/25 16:02> Social History Social History: Social History Social History: Surrogate medical decision maker: Maxi Carrasquillo, lexa. Code status: Do not resuscitate. Smoking packs per day: 0.25 Smoking cigarettes per day: 5.0 Years smoked: 49 Smoking pack-years: 12.25 Smoking status: Current every day smoker Tobacco type: cigarettes Second hand tobacco smoke exposure: Yes Alcohol intake: never Substance use: never Substance use type: does not use Lack of Transportation: No Lack of Food: Never True Current Housing: I Have Housing Concerned About Future Housing: No Difficulty Paying Gas/Electric Bills: No Difficulty Paying for Meds: No Currently Unemployed: No Education: High School Diploma/GED Difficulty w/ Childcare or Family Care: No Additional living arrangements comments: with three children. Lives in [place]. 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 Spiritual care concerns: No Agree to blood products: Yes <Kaylah Sanchez PA-C - Last Filed: 06/01/25 16:02> Exam Narrative: GENERAL: Well-appearing, well-nourished, and in no acute distress. HEAD: Normocephalic, atraumatic. EYES: PERRLA and EOMI. ENT: Nares clear, no rhinorrhea or epistaxis. Mucous membranes moist. Oropharynx without tonsillar hypertrophy exudate or other lesions. Bilateral TMs pearly loera non-bulging NECK: Supple. No adenopathy or masses. No carotid bruits or JVD CHEST: Clear to auscultation. No respiratory distress. No wheezes rales or rhonchi HEART: Regular rate and rhythm. No murmur heard. Normal peripheral pulses. ABDOMEN: Soft, nontender, nondistended, normal active bowel sounds. EXTREMITIES: Normal range of motion. No edema. SKIN: Warm, dry, no rash. NEURO: No focal deficits. Alert and oriented x3. PSYCH: Normal mood and affect <DESI Fuentes Last Filed: 06/01/25 18:21> Course Course Emergency Course: Upon my evaluation patient reports she does not have any pain, she does not want to stay for any further evaluation or treatment <DESI Fuentes Last Filed: 06/01/25 18:21> Vital Signs Vital signs: Vital Signs Pulse Rate 76 06/01/25 17:46 Respiratory Rate 23 H 06/01/25 17:46 Pulse Oximetry 97 06/01/25 17:46 Pulse Rate 76 06/01/25 17:46 Respiratory Rate 23 H 06/01/25 17:46 Pulse Oximetry 97 06/01/25 17:46 <DESI Hernandez Last Filed: 06/01/25 16:02> Vital Signs Pulse Rate 76 06/01/25 17:46 Respiratory Rate 23 H 06/01/25 17:46 Pulse Oximetry 97 06/01/25 17:46 Pulse Rate 76 06/01/25 17:46 Respiratory Rate 23 H 06/01/25 17:46 Pulse Oximetry 97 06/01/25 17:46 <DESI Fuentes Last Filed: 06/01/25 18:21> [facility] Narrative Medical decision making narrative: MSE by THERON in triage <DESI Hernandez Last Filed: 06/01/25 16:02> MSE by THERON in triage Patient presents to the ER for chest pain. Ongoing since yesterday. Patient has been seen multiple times for similar complaint. Does have history of coronary artery disease. Patient is very uncooperative. Would not let us obtain a full set of vitals. We did obtain blood work which was without acute findings. Patient has a pacemaker. Chest x-ray showing atelectasis versus pneumonia. Likely atelectasis, patient does not endorse any fever or cough. Patient would not stay for any further evaluation or treatment. Is leaving against medical advice <DESI Fuentes Last Filed: 06/01/25 18:21> Differential Diagnosis Differential Diagnosis: angina, NSTEMI, pneumonia, atelectasis <Mel Gonzalez PA-C - Last Filed: 06/01/25 18:21> Lab Data MDM Lab Attestation statement: I personally reviewed the patient's lab results. <Mel Gonzalez PA-C - Last Filed: 06/01/25 18:21> Result diagrams: 06/01/25 17:02 06/01/25 17:02 <Kaylah Sanchez PA-C - Last Filed: 06/01/25 16:02> Labs: Lab Results 06/01/25 06/01/25 Range/Units 17:02 17:36 WBC 7.1 (4.5-10.0) K/mm3 RBC 4.41 (4.2-5.4) M/mm3 Hgb 10.6 L (12.0-15.0) g/dL Hct 35.7 L (37.0-47.0) % MCV 81.0 (80-100) fl MCH 24.0 L (26-34) pg MCHC 29.7 L (32-36) g/dl RDW 17.5 H (11.5-14.5) % Plt Count 213 (150-375) k/mm3 MPV 10.6 H (7.4-10.4) fl Immature Gran % (Auto) 0.3 (0-0.5) % Neut % (Auto) 65.1 (45.5-73.1) % Lymph % (Auto) 20.0 (18.3-44.2) % [place] % (Auto) 11.0 H (2.6-8.5) % Eos % (Auto) 3.0 (0-4.4) % Baso % (Auto) 0.6 (0.2-1.2) % Lymph # (Auto) 1.41 (0.9-3.2) K/mm3 [place] # (Auto) 0.8 H (0.1-0.6) K/mm3 Eos # (Auto) 0.2 (0-0.3) K/mm3 Baso # (Auto) 0.0 (0.0-0.1) K/mm3 Abs Immat Gran (auto) 0.02 (0.00-0.031) K/mm3 Absolute Neuts (auto) 4.6 (1.3-6.7) K/mm3 Absolute Nucleated RBC 0.000 (0.0-0.012) K/mm3 Band Neutrophils % Not Reportable Nucleated RBC % 0.0 (0.0-0.2) % Platelet Estimate Adequate (Adequate) Hypochromasia 1+ Anisocytosis 1+ Schistocytes None seen PT 13.8 (11.1-14.7) Seconds INR 1.0 APTT 29.4 (22.3-36.8) Seconds Sodium 139 (137-145) mmol/L Potassium 3.5 (3.4-5.0) mmol/L Chloride 107 (98-107) mmol/L Carbon Dioxide 27 (22-30) mmol/L Anion Gap 5 (4-12) mmol/L BUN 26 H (7-17) mg/dL Creatinine 0.84 (0.7-1.0) mg/dL Estim Creat Clear Calc 37 ml/min Estimated GFR > 60 (59 - ) Glucose 90 (65-110) mg/dL Calcium 9.2 (8.4-10.2) mg/dL Total Bilirubin 0.3 (0.2-1.3) mg/dL AST 23 (14-36) U/L ALT 10 (6-35) U/L Alkaline Phosphatase 112 (38-126) U/L Troponin I < 0.012 (0.000-0.034) ng/mL Total Protein 6.7 (6.3-8.2) g/dL Albumin 3.6 (3.5-5.1) g/dL Lipase 70 (23-300) U/L Influenza A (RT-PCR) Pending Influenza B (RT-PCR) Pending RSV (RT-PCR) Pending SARS-CoV-2 RNA (RT-PCR) Pending <Kaylah Sanchez PA-C - Last Filed: 06/01/25 16:02> Lab Results 06/01/25 06/01/25 Range/Units 17:02 17:36 WBC 7.1 (4.5-10.0) K/mm3 RBC 4.41 (4.2-5.4) M/mm3 Hgb 10.6 L (12.0-15.0) g/dL Hct 35.7 L (37.0-47.0) % MCV 81.0 (80-100) fl MCH 24.0 L (26-34) pg MCHC 29.7 L (32-36) g/dl RDW 17.5 H (11.5-14.5) % Plt Count 213 (150-375) k/mm3 MPV 10.6 H (7.4-10.4) fl Immature Gran % (Auto) 0.3 (0-0.5) % Neut % (Auto) 65.1 (45.5-73.1) % Lymph % (Auto) 20.0 (18.3-44.2) % [place] % (Auto) 11.0 H (2.6-8.5) % Eos % (Auto) 3.0 (0-4.4) % Baso % (Auto) 0.6 (0.2-1.2) % Lymph # (Auto) 1.41 (0.9-3.2) K/mm3 [place] # (Auto) 0.8 H (0.1-0.6) K/mm3 Eos # (Auto) 0.2 (0-0.3) K/mm3 Baso # (Auto) 0.0 (0.0-0.1) K/mm3 Abs Immat Gran (auto) 0.02 (0.00-0.031) K/mm3 Absolute Neuts (auto) 4.6 (1.3-6.7) K/mm3 Absolute Nucleated RBC 0.000 (0.0-0.012) K/mm3 Band Neutrophils % Not Reportable Nucleated RBC % 0.0 (0.0-0.2) % Platelet Estimate Adequate (Adequate) Hypochromasia 1+ Anisocytosis 1+ Schistocytes None seen PT 13.8 (11.1-14.7) Seconds INR 1.0 APTT 29.4 (22.3-36.8) Seconds Sodium 139 (137-145) mmol/L Potassium 3.5 (3.4-5.0) mmol/L Chloride 107 (98-107) mmol/L Carbon Dioxide 27 (22-30) mmol/L Anion Gap 5 (4-12) mmol/L BUN 26 H (7-17) mg/dL Creatinine 0.84 (0.7-1.0) mg/dL Estim Creat Clear Calc 37 ml/min Estimated GFR > 60 (59 - ) Glucose 90 (65-110) mg/dL Calcium 9.2 (8.4-10.2) mg/dL Total Bilirubin 0.3 (0.2-1.3) mg/dL AST 23 (14-36) U/L ALT 10 (6-35) U/L Alkaline Phosphatase 112 (38-126) U/L Troponin I < 0.012 (0.000-0.034) ng/mL Total Protein 6.7 (6.3-8.2) g/dL Albumin 3.6 (3.5-5.1) g/dL Lipase 70 (23-300) U/L Influenza A (RT-PCR) Pending Influenza B (RT-PCR) Pending RSV (RT-PCR) Pending SARS-CoV-2 RNA (RT-PCR) Pending <Mel Gonzalez PA-C - Last Filed: 06/01/25 18:21> Imaging Data Radiologist's impression: ITS Impressions Chest X-Ray 06/01/25 16:53 IMPRESSION: 1. Retrocardiac opacity left lower lung zone which could represent atelectasis or pneumonia. <Kaylah Sanchez PA-C - Last Filed: 06/01/25 16:02> ITS Impressions Chest X-Ray 06/01/25 16:53 IMPRESSION: 1. Retrocardiac opacity left lower lung zone which could represent atelectasis or pneumonia. <Mel Gonzalez PA-C - Last Filed: 06/01/25 18:21> ECG Data EKG #1: ECG completion date: 06/01/25 <DESI Fuentes Last Filed: 06/01/25 18:21> normal rate, sinus rhythm and other (pacemaker present) <DESI Fuentes Last Filed: 06/01/25 18:21> Critical Care Time Critical Care Time Critical Care Time: No <DESI Fuentes Last Filed: 06/01/25 18:21> Discharge Plan Discharge Clinical Impression: Chest pain Qualifiers: Chest pain type: unspecified Qualified Code(s): R07.9 - Chest pain, unspecified <Kaylah Sanchez PA-C - Last Filed: 06/01/25 16:02> Patient Disposition: Left Against Medical Advice <Kaylah Sanchez PA-C - Last Filed: 06/01/25 16:02> Condition: Guarded Prognosis <Kaylah Sanchez PA-C - Last Filed: 06/01/25 16:02> Instructions: Chest Pain (ED) <DESI Hernandez Last Filed: 06/01/25 16:02> Additional Instructions: Return to the emergency department if you experience fever, chest pain, shortness of breath, abdominal pain with nausea and vomiting, weakness, numbness, or any other symptoms that are concerning to you. 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 with your patternmaker hand <Kaylah Sanchez PA-C - Last Filed: 06/01/25 16:02> Patient Language: French <Kaylah Sanchez PA-C - Last Filed: 06/01/25 16:02> Prescriptions: No Action sumatriptan succinate 100 mg tablet 100 mg PO BID PRN (Reason: Headache) nitroglycerin 0.4 mg tablet, sublingual 0.4 mg sublingual BID PRN (Reason: Chest Pain) mirtazapine 15 mg tablet 15 mg PO QHS gabapentin 100 mg capsule 100 mg PO DAILY albuterol sulfate 90 mcg/actuation HFA aerosol inhaler 90 mcg inhalation QID PRN (Reason: Shortness Of Breath) losartan 100 mg tablet 100 mg PO DAILY prednisone 10 mg tablet 5 mg PO DAILY Rx Instructions: 1/2 Tab every day aspirin 81 mg Tablet,Delayed Release (Dr/Ec) 81 mg PO DAILY tizanidine 4 mg tablet 4 mg PO QID PRN (Reason: Back Pain) nortriptyline 10 mg capsule 10 mg PO HS trazodone 100 mg tablet 100 mg PO HS Eliquis 2.5 mg tablet 2.5 mg PO BID oxycodone-acetaminophen 7.5-325 mg tablet 1 tablet PO BID PRN (Reason: Pain) pantoprazole 40 mg Tablet,Delayed Release (Dr/Ec) 40 mg PO QAM Qty: 15 0RF ondansetron 4 mg tablet,disintegrating 4 mg PO Q8H PRN (Reason: nausea and vomiting) Qty: 14 0RF sumatriptan succinate [Imitrex] 100 mg tablet 100 mg PO BID PRN (Reason: migraine headache) nitroglycerin 0.4 mg tablet, sublingual 0.4 mg sublingual Q5M PRN (Reason: chest pain) Rx Instructions: do not exceed 3 doses per episode mirtazapine 15 mg tablet 15 mg PO HS gabapentin 100 mg capsule 100 mg PO DAILY albuterol sulfate 90 mcg/actuation HFA aerosol inhaler 1 inh inhalation QID PRN (Reason: shortness of breath or wheezing) losartan 100 mg tablet 100 mg PO DAILY prednisone 5 mg tablet 5 mg PO DAILY aspirin [Adult Aspirin Regimen] 81 mg tablet,delayed release (DR/EC) 81 mg PO DAILY tizanidine 4 mg tablet 4 mg PO QID PRN (Reason: muscle spasticity) Rx Instructions: PRN muscle spasms/back pain. nortriptyline 10 mg capsule 10 mg PO HS trazodone 100 mg tablet 100 mg PO HS Eliquis 2.5 mg tablet 2.5 mg PO BID oxycodone-acetaminophen 7.5-325 mg tablet 1 tablet PO BID PRN (Reason: pain (scale score 7-10)) pantoprazole 40 mg tablet,delayed release (DR/EC) 40 mg PO QAM ondansetron 4 mg tablet,disintegrating 4 mg translingual Q8H PRN (Reason: nausea and vomiting) levofloxacin 500 mg Tablet 500 mg PO Q48HR 1 Days Qty: 1 0RF Rx Instructions: Take 03/04/25 doxycycline hyclate 100 mg capsule 100 mg PO Q12H 5 Days Qty: 10 0RF Rx Instructions: Take one tablet PO Q12 hours x7 days. Rx started on 02/24/25. atorvastatin [Lipitor] 20 mg tablet 20 mg PO DAILY Qty: 30 0RF losartan [Cozaar] 100 mg tablet 100 mg PO DAILY Qty: 14 0RF aspirin [Adult Aspirin Regimen] 81 mg tablet,delayed release (DR/EC) 81 mg PO DAILY Qty: 30 0RF nitroglycerin 0.4 mg tablet, sublingual 0.4 mg sublingual BID PRN (Reason: chest pain) Qty: 30 0RF Rx Instructions: as a single dose; administer 5-10 minutes before situation known to precipitate angina attack Eliquis 2.5 mg tablet 2.5 mg PO BID Qty: 30 0RF atorvastatin [Lipitor] 20 mg tablet 20 mg PO DAILY Qty: 30 0RF <Kaylah Sanchez PA-C - Last Filed: 06/01/25 16:02> Follow-up/Referrals: PHYSICIAN,PROMOTION PRODUCER [Primary Care Provider, Internal Medicine] <Kaylah Sanchez PA-C - Last Filed: 06/01/25 16:02>
[2025-06-01 17:07] LABS: Hematocrit 35.7 % (37.0-47.0); Hemoglobin 10.6 g/dL (12.0-15.0); Immature Granulocyte Percent A 0.3 % (0-0.5); Lymphocytes Absolute Auto 1.41 K/mm3 (0.9-3.2); Mean Corpuscular HGB Conc 29.7 g/dl (32-36); Mean Corpuscular Hemoglobin 24.0 pg (26-34); Mean Corpuscular Volume 81.0 fl (80-100); Nucleated Red Blood Cells Absolute Auto 0.000 K/mm3 (0.0-0.012); Nucleated Red Blood Cells Perc 0.0 % (0.0-0.2); Platelet Count Result 213 k/mm3 (150-375); Red Blood Count 4.41 M/mm3 (4.2-5.4); White Blood Count 7.1 K/mm3 (4.5-10.0)
[2025-06-01 17:17] LABS: Alanine Aminotransferase 10 U/L (6-35); Albumin Level 3.6 g/dL (3.5-5.1); Alkaline Phosphatase 112 U/L (38-126); Anion Gap 5 mmol/L (4-12); Aspartate Amino Transferase 23 U/L (14-36); Bilirubin,Total 0.3 mg/dL (0.2-1.3); Blood Urea Nitrogen 26 mg/dL (7-17); Calcium 9.2 mg/dL (8.4-10.2); Carbon Dioxide 27 mmol/L (22-30); Chloride 107 mmol/L (98-107); Estimated CRCL calculation 37 ml/min; Estimated Glomerular Filt Rate > 60; Glucose 90 mg/dL (65-110); Lipase 70 U/L (23-300); Potassium 3.5 mmol/L (3.4-5.0); Sodium 139 mmol/L (137-145); Total Protein 6.7 g/dL (6.3-8.2)
[2025-06-01 17:22] LABS: INR 1.0; Partial Thromboplastin Time 29.4 Seconds (22.3-36.8); Prothrombin Time 13.8 Seconds (11.1-14.7)
--- OUTSIDE RECORDS SUMMARY | 2025-06-01 17:25 | XMS_ITS | Clinical Summary ---
Author Organization [facility] [address] Address [address] [place] [address] Care Team Providers Care Lap Machine Operator Name Role Phone Karan Snyder MD Unavailable [phone] Wesley Loaiza Primary Care Provider + Lilia Gomes MD Unavailable Mando Acuña MD Unavailable [phone] Larry Gregory MD Unavailable [phone] Nixon Casey MD Unavailable Renan Espino [...] encephalopathy 07/13/2020 COPD (chronic obstructive pulmonary disease) ([facility] 07/11/2020 Assessment & Plan (07/11/2020 7:26 PM LEADERSHIP COACH): Not in exacerbation. Prn duo-nebs. HCAP (healthcare-associated pneumonia) 0 MARIELA (acute kidney injury) ([facility]) 12/01/2019 Hepatitis 12/01/2019 Multiple skin nodules 12/01/2019 Chest pain 11/30/2019 Overview (12/01/2019): Added automatically from request for surgery [id number] Assessment & Plan (07/11/2020 7:20 PM LEADERSHIP COACH): Suspect fibromyalgia related but need to r/o acs. Troponin levels of 12, 10, continue serial readings. EKG A-paced 71. Pacer interrogated today w/o any events recorded. Cardiology has been consulted for which we appreciate their evaluation and recommendations. Telemetry monitoring. Prn dilaudid. Resumed ranexa, naproxen and asa. Esophageal dysphagia 09/26/2019 Overview (09/27/2019): Added automatically from request for surgery [id number] Severe malnutrition ([facility]) 07/19/2019 Acute CVA (cerebrovascular accident) 07/17/2019 Assessment & Plan (07/17/2019 2:49 PM LEADERSHIP COACH): S/p TPA. CT and CTA as noted [...] evaluation and recommendations. Telemetry monitoring. History of FL (myocardial infarction) 10/02/2018 Chronic CHF ([facility]) 10/02/2018 Assessment & Plan (07/11/2020 7:25 PM LEADERSHIP COACH): Appears compensated. Last echo from 07/2019 with diastolic dysfunction Grade 1, EF 70%. Home medications listed above. Cardiology following. Assessment & Plan (09/26/2019 6:32 PM CDT): S/p AICD placement 2015. Echo 07/2019 with impaired diastolic dysfunction Grade 1 with EF 70%. On ASA, statin, coreg, zetia and prn nitro. Assessment & Plan (07/17/2019 2:50 PM LEADERSHIP COACH): Echo from 08/2018 with diastolic dysfunction Grade 1, EF 55%. AICD (automatic cardioverter/defibrillator) pres ent 10/02/2018 CKD (chronic kidney disease) 10/02/2018 Hypertension 10/02/2018 Hyperlipidemia 10/02/2018 Depression 10/02/2018 History of CVA (cerebrovascular accident) 2018 Assessment & Plan (07/17/2019 2:52 PM LEADERSHIP COACH): With residual left sided weakness prior to acute cva today. Migraines 10/02/2018 Assessment & Plan (09/26/2019 6:33 PM CDT): Topamax. Assessment & Plan (07/17/2019 2:52 PM LEADERSHIP COACH): On Topamax and Imitrex. Leukocytosis 10/02/2018 Gastrointestinal hemorrhage 10/02/2018 Overview (10/03/2018): Added automatically from request for surgery Depression 09/25/2018 Assessment & Plan (07/11/2020 7:24 PM LEADERSHIP COACH): Remeron and Cymbalta. Musculoskeletal chest pain 09/22/2018 Moderate protein-calorie malnutrition 09/09/2018 AICD (automatic cardioverter/defibrillator) pres ent 09/08/2018 Overview (04/21/2019): Biotronik ICD has followed with [facility] History of atrial fibrillation 09/08/2018 Assessment & Plan (07/11/2020 7:23 PM LEADERSHIP COACH): S/p AICD placement. EKG a-paced. On Xarelto, coreg and asa. Telemetry monitoring. SLE (systemic lupus erythema tosus related syndrome) ([facility]) 09/08/2018 Assessment & Plan (07/11/2020 7:24 PM LEADERSHIP COACH): Prednisone and Naproxen. Assessment & Plan (09/26/2019 6:32 PM CDT): Prn analgesics. Assessment & Plan (07/17/2019 2:58 PM LEADERSHIP COACH): Not in exacerbation. Prn analgesics. History of ventricular tachycardia 09/08/2018 Coronary arteriosclerosis in [place] artery 10/15 Overview (09/06/2016): Coronary artery disease of [place] artery of [place] heart with stable angina pectoris Assessment & Plan (07/11/2020 7:22 PM LEADERSHIP COACH): S/p stenting to RCA, LAD and OM. On ASA, zetia and atorvastatin. Assessment & Plan (09/26/2019 6:28 PM CDT): S/p KEITH to LAD 2012. On ASA and Brilinta. Assessment & Plan (07/17/2019 2:58 PM LEADERSHIP COACH): S/p stenting to LAD 2012. Normally on Brilinta and asa. S/p AICD placement. Presence of stent in coronary artery 10/16/2015 Overview (09/06/2016): History of coronary artery stent placement Fatigue 10/16/2015 Overview (09/06/2016): Fatigue, unspecified type NSTEMI (non-ST elevated myocardial infarction) 0 10/16/2015 Overview (09/06/2016): Old FL (myocardial infarction) Angina pectoris 10/16/2015 Overview (09/06/2016): Angina pectoris Hypertension 10/16/2015 Overview (09/06/2016): Resistant hypertension Assessment & Plan (07/11/2020 7:23 PM LEADERSHIP COACH): Controled on Aldactone, Nifedipine, Hyzaar, clonidine and coreg. Monitor. Assessment & Plan (09/26/2019 6:28 PM CDT): Stable. On Coreg. Assessment & Plan (07/17/2019 2:50 PM LEADERSHIP COACH): Stable. On five anti-hypertensive's. Will hold d/t hypotension and acute stroke. Monitor closely. Ventricular premature beats 10/16/2015 Overview (09/06/2016): PVCs (premature ventricular contractions) History of stroke 10/16/2015 Overview (09/06/2016): History of stroke Hypercholesterolemia 10/16/2015 Overview (09/06/2016): Hypercholesterolemia Assessment & Plan (09/26/2019 6:29 PM CDT): On statin and zetia. Assessment & Plan (07/17/2019 2:52 PM LEADERSHIP COACH): Zetia. Former smoker 10/16/2015 Overview (09/06/2016): Former smoker Assessment & Plan (07/11/2020 7:26 PM LEADERSHIP COACH): Reports quit 4 years ago. Assessment & Plan (07/17/2019 2:54 PM LEADERSHIP COACH): Quit four years ago. Urinary tract infection 05/16/2015 Hydronephrosis 03/23/2015 Lupus erythematosus 02/28/2015 Malignant neoplasm of urinary bladder 02/28/2015 Fibromyalgia Assessment & Plan (07/11/2020 7:22 PM LEADERSHIP COACH): Gabapentin and prn analgesics. Monitor. Assessment & Plan (07/17/2019 2:59 PM LEADERSHIP COACH): Lyrica. Prn analgesics. Chronic pain syndrome Vasovagal syncope Nausea and vomiting Colitis Encounters Date Type Department Care Team Description 03/08/[address] [facility] Health Information Management [address] [place] [address] Scanning, Provider 03/01/2025 Orders Only [facility] Medical Group Cardiology [address] [place] [address] Lila Argueta MD from Last [...] Coronary artery disease Hypertension Migraines Lupus Depression FL (myocardial infarction) (HCC) Cancer (HCC) A-fib (HCC) [...] often do you attend chur ch or mormon services? More than 4 times per year 02/04/2023 Do you belong to any clubs o r organizations such as yarsani groups, unions, fraternal or athletic groups, or [...] place to sleep or slept in a fdc (including now)? No 02/04/2023 Personal Safety Answer Date Recorded Have you ever been in or are you currently in a harmful physical or emotional relationship or is someone making you feel afraid or unsafe? Denies 02/12/2025 Comments No Sex and Gender Information Value Date Recorded Sex Assigned at Not on file Legal Sex Female 1:55 AM LEADERSHIP COACH Gender Identity Not on file Sexual Orientation [...] 11/13/2021, 10/05/2018 Medical Devices Implanted Type Area Autobody Technician Device Identifier Shelf Expiration Date Model / Serial / Lot Biotech ICD Chest Biotronik Inc [employer] [id number] Angio-Seal Evolution 6fr .035in Guidewire Bypass Tube Suture - [id number] Implanted:Qty: 1 on 01/31/2020 by Robb Wilson MD at [facility] [employer] 07/30/2020 [id number] / / [id number] Procedures Procedure Name Priority Date/Time Associated Diagnosis [...] Espino MD - 11/13/2021 2:19 PM CDT [facility] Endoscopy Lab Patient Name: Teagan Sigala [...] Eliu Britton CRNA (Anesthesia Staff), Andrew Henderson, Trestle Mainternance Laborer Referring MD: Crystal Zavala Medicines: Monitored Anesthesia [...] not recommended. Procedure Code(s): --- Professional --- 24645, Colonoscopy, flexible; with biopsy, singleor multiple Diagnosis Code(s): --- Professional --- D12.5, Benign neoplasm of sigmoid colon D12.3, Benign neoplasm of transverse colon (hepatic flexure or splenic flexure) K55.20, Angiodysplasia of colon withouthemorrhage R10.84, Generalized abdominal pain K57.30, Diverticulosis of large intestine without perforation or abscess without bleeding R93.3, Abnormal findings on diagnostic imaging of other parts of digestive tract CPT copyright 2020 [employer]. All rights reserved. The codes documented in this report are preliminary and upon crap game box person reviewmay be revised to meet current compliance [...] 3:29 PM CDT 11/10/2021 3:32 PM CDT Renna Espino MD LAB MICROBIOLOGY - GENE [facility] ORDERABLES Final Result FLORINA HOOKER [address] Department [place] [address] from Last 3 Months or Most Recently Relevant to Health Maintenance Insurance [facility] MEDICARE ADVANTAGE MEDICARE [facility] IDMN [facility] MEDICARE ADVANTAGE Advance Directives For more information, please contact: [phone] Documents on File Type Date Recorded Patient Reduction Furnace Operator Expl anation ADVANCE DIRECTIVE 09/23/2018 9:15 AM BONNY TAYLOR ADVANCE DIRECTIVE 09/23/2018 9:13 AM POWER OF FRONT SIGHT ATTACHER-MEDICAL ADVANCE DIRECTIVE 09/23/2018 9:13 AM POWER OF FRONT SIGHT ATTACHER-MEDICAL * Full Code (Latest Code Status on [...] Agents on File Name Relationship Healthcare Agent [facility] Communication Maxi العلي Health Care Agent Care Teams Lap Machine Operator Relationship Specialty Start Date End Date Wesley Loaiza PA [address] [place] [address] PCP - General 09/07/18 Karan Snyder MD Consulting Physician Cardiology 05/19/17 Lilia Gomes MD [address] [place] [address] Consulting Physician Cardiovascular Disease 09/08/18 Mando Acuña MD [address] [place] [address] Consulting Physician Cardiology 10/05/18 Larry Gregory MD [address] [place] [address] Consulting Physician Internal Medicine 07/29/19 Nixon Casey MD [address] [place] [address] Consulting Physician Gastroenterology 09/28/19 [place] [id number] [address] Consulting Physician Gastroenterology 11/13/21
--- OUTSIDE RECORDS SUMMARY | 2025-06-01 17:25 | XMS_ITS | Clinical Summary ---
Author Organization [facility] Address [address] [place] [address] Care Team Providers Care Program Support Specialist Name Role Phone Cm Loaiza APRN-MECHANICAL ORDNANCE ASSEMBLER Primary Care Provider Source Comments [facility],non-owned Affiliates and Associated Physician Practices is amultiple site organization consisting of ambulatory clinics and hospital sitesin [place], [place], [place] and [place]. This disclosure is being madepursuant to the Care Everywhere program and may not contain all information available regarding this patient. Last updated 18.[facility] [employer] Allergies Active Allergy Reactions Criticality Noted Date [...] Recorded Patient Health Questionnaire-2 Score 0 05/02/2024 [facility] [place] of Occupat ional Health - Occupational Stress [...] any time in the past 12 m [facility], were you homeless or living in a halfway (including now)? Patient declined 04/29/2024 Comments No Sex and Gender Information Value Date Recorded Sex Assigned at Not on file Legal Sex Female 6:19 AM CLOTH WEAVER Gender Identity Not on file Sexual Orientation Not on file Last Filed Vital Signs Vital Sign Reading Time Taken Comments Blood Pressure 149/60 05/03/2024 7:50 AM CLOTH WEAVER Pulse 76 05/03/2024 8:09 AM CLOTH WEAVER Temperature 36.7 C (98.1 F) 05/03/2024 7:50 AM CLOTH WEAVER Respiratory Rate 18 05/03/2024 8:09 AM CLOTH WEAVER Oxygen Saturation 94% 05/03/2024 8:09 AM CLOTH WEAVER Inhaled Oxygen Concentration - - Weight 47 kg (103 lb 9.6 oz) 04/28/2024 9:50 PM CLOTH WEAVER Height 162.6 cm (5' 4) 04/28/2024 1:58 PM CLOTH WEAVER Body Mass Index 17.78 04/28/2024 1:58 PM CLOTH WEAVER Plan of Treatment Health Maintenance Due Date [...] this topic Medical Devices Implanted Type Area Environmental Studies Faculty Member Device Identifier Shelf Expiration Date Model / Serial / Lot Biotronik Iperia 7 Dr-T- 6 Implanted:06/2015 (Quantity not on file) ICD Left: Chest / [id number] / Implant Lead Rv [id number]-1 07/03/2015 Implanted:06/2015 (Quantity not on file) Implant Lead Ventricle Biotronik [id number] / [id number] / Implant Lead-[id number] /[id number] Implanted:06/2015 (Quantity not on file) Implant Lead Atrium Biotronik [id number] / [id number] / Procedures Procedure Name Priority Date/Time Associated [...] CDT Narrative Resulting Agency Comment Performed By [facility] - [facility] [address] [place] [address] us Nathanael Callejas MD LAB - CHEMISTRY ORDERABLES F inal Result Performing Organization Address City/State/[facility] Co de Phone Number [facility] [address] [place] [address] from Last 3 Months or Most Recently [...] 11:58 AM 09/29/2020 5:54 PM Care Teams Program Support Specialist Relationship Specialty Start Date End Date Cm Loaiza, ERNIE-MECHANICAL ORDNANCE ASSEMBLER [address] [place] [address] PCP - General Nurse Practitioner 02/09/21
--- OUTSIDE RECORDS SUMMARY | 2025-06-01 17:25 | XMS_ITS ---
Author Organization [facility] [address] Address [address] [place] [address] Care Team Providers Care Manager Supply Chain Planning Name Role Phone Karan Snyder MD Unavailable [phone] Wesley Loaiza Primary Care Provider + Lilia Gomes MD Unavailable Mando Acuña MD Unavailable [phone] Larry Gregory MD Unavailable [phone] Nixon Casey MD Unavailable Renan Espino MD Unavailable [phone] Active Problems Problem Noted Date Diagnosed Date Chest pain, unspecified type 11/29/2023 Intraparenchymal hemorrhage of brain 11/23/2023 Left-sided chest pain 11/11/2023 Small bowel obstruction 02/03/2023 Hypokalemia 11/12/2021 Abdominal pain 11/09/2021 Thoracic back pain 01/10/2021 Toxic metabolic encephalopathy 07/13/2020 COPD (chronic obstructive pulmonary disease) ([facility] S/HCC) 07/11/2020 Assessment & Plan (07/11/2020 7:26 PM RETOUCHER PHOTOENGRAVING): Not in exacerbation. Prn duo-nebs. HCAP (healthcare-associated pneumonia) 0 MARIELA (acute kidney injury) ([facility] 12/01/2019 Hepatitis 12/01/2019 Multiple skin nodules 12/01/2019 Chest pain 11/30/2019 Overview (12/01/2019): Added automatically from request for surgery [id number] Assessment & Plan (07/11/2020 7:20 PM RETOUCHER PHOTOENGRAVING): Suspect fibromyalgia related but need to r/o acs. Troponin levels of 12, 10, continue serial readings. EKG A-paced 71. Pacer interrogated today w/o any events recorded. Cardiology has been consulted for which we appreciate their evaluation and recommendations. Telemetry monitoring. Prn dilaudid. Resumed ranexa, naproxen and asa. Esophageal dysphagia 09/26/2019 Overview (09/27/2019): Added automatically from request for surgery [id number] Severe malnutrition ([facility]) 07/19/2019 Acute CVA (cerebrovascular accident) 07/17/2019 Assessment & Plan (07/17/2019 2:49 PM RETOUCHER PHOTOENGRAVING): S/p TPA. CT and CTA as noted [...] evaluation and recommendations. Telemetry monitoring. History of MD (myocardial infarction) 10/02/2018 Chronic CHF ([facility]) 10/02/2018 Assessment & Plan (07/11/2020 7:25 PM RETOUCHER PHOTOENGRAVING): Appears compensated. Last echo from 07/2019 with diastolic dysfunction Grade 1, EF 70%. Home medications listed above. Cardiology following. Assessment & Plan (09/26/2019 6:32 PM CDT): S/p AICD placement 2016. Echo 07/2019 with impaired diastolic dysfunction Grade 1 with EF 70%. On ASA, statin, coreg, zetia and prn nitro. Assessment & Plan (07/17/2019 2:50 PM RETOUCHER PHOTOENGRAVING): Echo from 08/2018 with diastolic dysfunction Grade 1, EF 55%. AICD (automatic cardioverter/defibrillator) pres ent 10/02/2018 CKD (chronic kidney disease) 10/02/2018 Hypertension 10/02/2018 Hyperlipidemia 10/02/2018 Depression 10/02/2018 History of CVA (cerebrovascular accident) 2018 Assessment & Plan (07/17/2019 2:52 PM RETOUCHER PHOTOENGRAVING): With residual left sided weakness prior to acute cva today. Migraines 10/02/2018 Assessment & Plan (09/26/2019 6:33 PM CDT): Topamax. Assessment & Plan (07/17/2019 2:52 PM RETOUCHER PHOTOENGRAVING): On Topamax and Imitrex. Leukocytosis 10/02/2018 Gastrointestinal hemorrhage 10/02/2018 Overview (10/03/2018): Added automatically from request for surgery Depression 09/25/2018 Assessment & Plan (07/11/2020 7:24 PM RETOUCHER PHOTOENGRAVING): Remeron and Cymbalta. Musculoskeletal chest pain 09/22/2018 Moderate protein-calorie malnutrition 09/09/2018 AICD (automatic cardioverter/defibrillator) pres ent 09/08/2018 Overview (04/21/2019): Biotronik ICD has followed with [facility] History of atrial fibrillation 09/08/2018 Assessment & Plan (07/11/2020 7:23 PM RETOUCHER PHOTOENGRAVING): S/p AICD placement. EKG a-paced. On Xarelto, coreg and asa. Telemetry monitoring. SLE (systemic lupus erythema tosus related syndrome) ([facility]) 09/08/2018 Assessment & Plan (07/11/2020 7:24 PM RETOUCHER PHOTOENGRAVING): Prednisone and Naproxen. Assessment & Plan (09/26/2019 6:32 PM CDT): Prn analgesics. Assessment & Plan (07/17/2019 2:58 PM RETOUCHER PHOTOENGRAVING): Not in exacerbation. Prn analgesics. History of ventricular tachycardia 09/08/2018 Coronary arteriosclerosis in [place] artery 10/15 Overview (09/06/2016): Coronary artery disease of [place] artery of [place] heart with stable angina pectoris Assessment & Plan (07/11/2020 7:22 PM RETOUCHER PHOTOENGRAVING): S/p stenting to RCA, LAD and OM. On ASA, zetia and atorvastatin. Assessment & Plan (09/26/2019 6:28 PM CDT): S/p KEITH to LAD 2011. On ASA and Brilinta. Assessment & Plan (07/17/2019 2:58 PM RETOUCHER PHOTOENGRAVING): S/p stenting to LAD 2011. Normally on Brilinta and asa. S/p AICD placement. Presence of stent in coronary artery 10/16/2015 Overview (09/06/2016): History of coronary artery stent placement Fatigue 10/16/2015 Overview (09/06/2016): Fatigue, unspecified type NSTEMI (non-ST elevated myocardial infarction) 0 10/16/2015 Overview (09/06/2016): Old MD (myocardial infarction) Angina pectoris 10/16/2015 Overview (09/06/2016): Angina pectoris Hypertension 10/16/2015 Overview (09/06/2016): Resistant hypertension Assessment & Plan (07/11/2020 7:23 PM RETOUCHER PHOTOENGRAVING): Controled on Aldactone, Nifedipine, Hyzaar, clonidine and coreg. Monitor. Assessment & Plan (09/26/2019 6:28 PM CDT): Stable. On Coreg. Assessment & Plan (07/17/2019 2:50 PM RETOUCHER PHOTOENGRAVING): Stable. On five anti-hypertensive's. Will hold d/t hypotension and acute stroke. Monitor closely. Ventricular premature beats 10/16/2015 Overview (09/06/2016): PVCs (premature ventricular contractions) History of stroke 10/16/2015 Overview (09/06/2016): History of stroke Hypercholesterolemia 10/16/2015 Overview (09/06/2016): Hypercholesterolemia Assessment & Plan (09/26/2019 6:29 PM CDT): On statin and zetia. Assessment & Plan (07/17/2019 2:52 PM RETOUCHER PHOTOENGRAVING): Zetia. Former smoker 10/16/2015 Overview (09/06/2016): Former smoker Assessment & Plan (07/11/2020 7:26 PM RETOUCHER PHOTOENGRAVING): Reports quit 4 years ago. Assessment & Plan (07/17/2019 2:54 PM RETOUCHER PHOTOENGRAVING): Quit four years ago. Urinary tract infection 05/16/2015 Hydronephrosis 03/23/2015 Lupus erythematosus 02/28/2015 Malignant neoplasm of urinary bladder 02/28/2015 Fibromyalgia Assessment & Plan (07/11/2020 7:22 PM RETOUCHER PHOTOENGRAVING): Gabapentin and prn analgesics. Monitor. Assessment & Plan (07/17/2019 2:59 PM RETOUCHER PHOTOENGRAVING): Lyrica. Prn analgesics. Chronic pain syndrome Vasovagal [...]
--- OUTSIDE RECORDS SUMMARY | 2025-06-01 17:25 | XMS_ITS | Encounter Summary ---
Author Organization [facility] Address [address] [place] [address] Care Team Providers Care Dining Car Server Name Role Phone Thierry Chadwick DO Primary Care Provider [phone] Karan Snyder MD Unavailable [phone] Wesley Loaiza Primary Care Provider + Lilia Gomes MD Unavailable Mando Acuña MD Unavailable [phone] Ruben San VAULT KEEPER Unavailable Maico Ellison NITROGLYCERIN NITRATOR OPERATOR BATCH Unavailable Dorian Del Rio DNP Unavailable Larry Gregory MD Unavailable [phone] Nixon Casey MD Unavailable Renan Espino MD Unavailable Encounter Details Date Type Department Care Team (Late st Contact Info) Description 05/20/2017 Documentation [facility] [id number] [place] [address] Kaylah Guerra Social History Tobacco Use Types Packs/Day Years Used Date Smoking Tobacco: Former Smokeless Tobacco: Never Alcohol Use Standard Drinks/Week Comments Not Asked 0 (1 standard drink = 0.6 oz pur e alcohol) Comments No Sex and Gender Information Value Date Recorded Sex Assigned at Not on file Legal Sex Female 1:55 AM FRAME CHANGER Gender Identity Not on file Sexual Orientation [...] CDT COVID19 04/05/2022 04/05/2022 04/15/2022 3:05 AM FRAME CHANGER COVID: Recovered Comment:Added based on recent COVID infection. 04/15/2022 05/17/2022 07/14/2022 3:05 AM FRAME CHANGER COVID: Suspected 05/17/2022 05/17/2022 05/17/2022 5:25 PM FRAME CHANGER COVID: Suspected 02/03/2023 02/03/2023 02/03/2023 12:10 PM CDT COVID: Suspected 02/28/2024 02/28/2024 02/28/2024 6:24 PM CDT documented as of this encounter Care Teams Dining Car Server Relationship Specialty Start Date End Date Thierry Chadwick DO PCP - General 04/20/13 09/06/18 Wesley Loaiza PA [address] [place] [address] PCP - General 09/07/18 Karan Snyder MD Consulting Physician Cardiology 05/19/17 Lilia Gomes MD [address] [place] [address] Consulting Physician Cardiovascular Disease 09/08/18 Mando Acuña MD [address] [place] [address] Consulting Physician Cardiology 10/05/18 Ruben San, VAULT KEEPER [address] [facility] [address] [place] [address] [facility] Outpatient Shirt Bander 10/07/18 03/13/20 Maico Ellison, NITROGLYCERIN NITRATOR OPERATOR BATCH [address] [facility] [address] [place] [address] [facility] Outpatient Shirt Bander 10/07/18 03/13/20 Dorian Del Rio DNP [address] [facility] [address] [place] [address] Nurse Practitioner Internal Medicine 10/07/18 03/13/20 [place] [address] [facility] [address] [place] [address] Consulting Physician Internal Medicine 07/29/19 [place] [address] [facility] [address] [place] [address] Consulting Physician Gastroenterology 09/28/19 [place] [address] [place] [address] Consulting Physician Gastroenterology 11/13/21 documented as of this encounter
--- OUTSIDE RECORDS SUMMARY | 2025-06-01 17:25 | XMS_ITS | Clinical Summary ---
Author Organization [facility] Address [id number] [place] [address] Care Team Providers Care Mash Filter Operator Name Role Phone Unavailable Primary Care Provider [...] [phone]+ series) 2024 COVID-19 Vaccine (1 - 2024-2 6 season) 2025 Influenza Adult (#1) 2025 Hepatitis A Vaccines Aged Out No long er eligible based on patient's age to complete this topic Meningococcal B Vaccine Aged Out No l onger eligible based on patient's age to complete this topic Meningococcal Vaccine Aged Out No kiki magdiel eligible based on patient's age to complete this topic RSV Immunizations Under 20 Months Aged Out No longer eligible based on patient's age to complete this topic Insurance [employer]
--- OUTSIDE RECORDS SUMMARY | 2025-06-01 17:25 | XMS_ITS | Data Portability ---
Author Organization [place] [facility] [employer], Main Office Address [address] [place] [address] Assessment Encounter Date Assessment Date Assessment LastModified by Organization Details LastModified Time 07/28/2023 07/28/2023 I have reconciled the patient's medications post their discharge from inpatient facility. [email or web address] Not available 07/28/2023 09:48:26 Plan of Treatment Reminders Order Date Submit Date Provider Last Modified By Organization Details Last Modified Time Details Appointments None recorded. Lab None recorded. Referral home health referral - needs physical therapy in home . 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 2023 024 [email or web address] [facility], [address] [place], [address], 4 10:26:50 cardiologis t referral - angina recurring in to left arm , has gone to ED twice , recent cva affecting left side this time . started clopidigrel and 81mg aspirin . Please call patient to schedule an appointment . 2023 024 [email or web address] Lilia Gomes MD, [address] [facility], [address], [place], [address], 4 08:56:22 cardiologis t referral - 2 heart ataacks last one 6 months ago , defibrillat or in situ 2022 023 [email or web address] [place], [address], [address], [place], [address], 3 18:40:50 Procedures None recorded. Surgeries None recorded. Imaging None recorded. Medication Orders amlodipine 5 mg tablet 2023 024 [facility]acy #[id number], [address], [place], [address], 4 13:04:02 losartan 100 mg tablet 2023 024 [facility]acy #[id number], [address], [place], [address], 4 13:04:03 aspirin 81 mg tablet,abelardo yed release 2023 024 [facility]armacy #94691, [address], [place], [address], 4 13:04:03 clopidogrel 75 mg tablet 2023 024 [facility]acy #04537, [address], [place], [address], 4 13:04:00 nortriptyli ne 10 mg capsule 2023 024 [facility]armacy #94145, [address], [place], [address], 4 13:04:02 trazodone 100 mg tablet 2023 024 [facility]armacy #61104, [address], [place], [address], 4 13:05:06 prednisone 20 mg tablet 2023 024 [facility]armacy #[id number], [address], [place], [address], 4 13:04:03 pantoprazol e 40 mg tablet,abelardo yed release 2023 024 [facility]acy #46647, [address], [place], [address], 4 13:04:01 Ventolin HFA 90 mcg/actuati on aerosol inhaler 2023 024 [facility], [address], [place], [address], 4 13:04:01 Symbicort 160 mcg-4.5 mcg/actuati on HFA aerosol inhaler 2023 024 [place] [address] [facility]acy #67092, [address], [place], [address], 4 15:28:15 ondansetron 4 mg disintegrat ing tablet 2023 024 [facility], [address], [place], [address], 4 13:04:01 nitroglycer in 0.4 mg sublingual tablet 2023 024 [facility], [address], [place], [address], 4 13:04:01 Depo-Medrol 80 mg/mL suspension for injection 2023 024 [email or web address] Not available 4 13:12:47 duloxetine 60 mg capsule,del ayed release 2023 024 [facility] #81310, [address], [place], [address], 4 13:04:02 gabapentin 800 mg tablet 2023 024 [facility] #28067, [address], [place], [address], 4 13:04:02 oxycodone-a cetaminophe n 7.5 mg-325 mg tablet 2023 024 [facility]acy #76466, [address], [place], [address], 4 13:04:04 prednisone 10 mg tablet 2023 024 [facility]acy #45608, [address] [place], [address], 4 13:04:03 clopidogrel 75 mg tablet [email or web address]/Pharmacy #87280, [address] [place], [address], 4 10:36:50 aspirin 81 mg tablet,abelardo yed release [address]/Pharmacy #37183, [address] [place], [address], 4 10:36:50 nortriptyli ne 10 mg capsule [address]/Pharmacy #07794, [address] [place], [address], 4 10:36:50 albuterol sulfate 2.5 mg/3 mL (0.083 %) solution for nebulizatio n [email or web address]/Pharmacy #80494, [address] [place], [address], 4 10:36:49 nitroglycer in 0.4 mg sublingual tablet [email or web address]/Pharmacy #40198, [address] [place], [address], 4 10:36:49 tizanidine 4 mg tablet 2023 024 [email or web address] 200 [facility]03963, [address], [place], [address], 4 10:36:50 Nurtec ODT 75 mg disintegrat ing tablet 2023 024 [facility] 200 [facility]acy #38944, [address], [place], [address], 4 10:36:49 prednisone 10 mg tablet 2023 024 [facility] 200 [facility] #46881, [address], [place], [address], 4 10:36:49 gabapentin 800 mg tablet 2023 024 [facility] 200 [facility] #24722, [address], [place], [address], 4 10:36:49 oxycodone-a cetaminophe n 7.5 mg-325 mg tablet 2023 024 [facility] 200 [facility] #63750, [address], [place], [address], 4 10:36:49 Depo-Medrol 80 mg/mL suspension for injection 2023 024 [facility] 200 Not available 4 10:36:50 ondansetron 4 mg disintegrat ing tablet 2022 023 [facility] #87643, [address], [place], [place], [id number], 3 15:08:43 clonazepam 0.5 mg tablet 2022 023 [facility] #88359, [address], [place], [place], [id number], 3 15:10:05 Depo-Medrol 80 mg/mL suspension for injection 2022 023 [email or web address] 11 Not available 3 15:34:14 oxycodone-a cetaminophe n 7.5 mg-325 mg tablet 2022 023 [facility] #87004, [address], [place], [place], [id number], 3 15:13:38 trazodone 100 mg tablet 2022 023 [facility] #59657, [address], [id number], 3 15:17:23 tizanidine 4 mg tablet 2022 023 [facility] #51610, [address] [place], [id number], 3 15:14:34 Ventolin HFA 90 mcg/actuati on aerosol inhaler 2022 023 [facility] #92643, [address], [place], [place], [id number], 3 15:06:41 Symbicort 160 mcg-4.5 mcg/actuati on HFA aerosol inhaler 2022 023 [facility] #16092, [address], [place], [place], [id number], 3 15:06:42 albuterol sulfate 2.5 mg/3 mL (0.083 %) solution for nebulizatio n 2022 023 [facility] #31040, [address] [place], [id number], 3 15:13:18 gabapentin 800 mg tablet 2022 023 [facility] #77993, [address], [place], [place], [id number], 3 15:09:20 hydrocodone 7.5 mg-acetamin ophen 325 mg tablet [address] [facility] #51342, [address], [place], [place], [id number], 3 14:38:41 Depo-Medrol 80 mg/mL suspension for injection 2022 023 [email or web address] 11 Not available 15:36:12 amlodipine 5 mg tablet [address] [facility] #50560, [address], [place], [place], [id number], 3 14:52:13 losartan 100 mg tablet [address] [facility] #54612, [address], [place], [place], [id number], 3 14:52:13 pantoprazol e 40 mg tablet,abelardo yed release [address] [facility] #07479, [address], [place], [place], [id number], 3 14:52:13 hydroxyzine HCl 10 mg tablet [address] [facility] #86827, [address], [place], [place], [id number], 3 14:52:13 Ventolin HFA 90 mcg/actuati on aerosol inhaler [address] [facility] #65565, [address], [place], [place], [id number], 3 14:52:12 Symbicort 160 mcg-4.5 mcg/actuati on HFA aerosol inhaler [address] [facility] #34836, [address], [place], [place], [id number], 3 14:52:13 prednisone 20 mg tablet [address] [facility] #49437, [address], [place], [place], [id number], 3 14:52:13 nitroglycer in 0.4 mg sublingual tablet [address] [facility] #78911, [address], [place], [place], [id number], 3 14:52:13 ondansetron 4 mg disintegrat ing tablet [address] [facility] #96496, [address], [place], [place], [id number], 3 14:52:12 tizanidine 4 mg tablet [address] [facility] #62172, [address], [place], [place], [id number], 3 14:52:12 Depo-Medrol 80 mg/mL suspension for injection 2022 023 [place] [address] Not available 3 14:52:12 triamcinolo ne acetonide 0.5 % topical ointment 2022 023 [place] 200 [facility] #67431, [address], [place], [place], [id number], 3 14:52:12 Benadryl Allergy 25 mg tablet 2022 023 [place] 200 [facility] #51248, [address], [place], [place], [id number], 3 14:52:13 gabapentin 300 mg capsule 2022 023 [email or web address] 2 [facility] #61582, [address], [place], [place], [id number], 4 15:30:26 hydrocodone 7.5 mg-acetamin ophen 325 mg tablet 2022 023 [email or web address] 200 [facility] #52325, [address], [place], [place], [id number], 3 14:38:41 Patient TargetsNo targets recorded. Patient Instructions Encounter Date Encounter Id Patient Instructions Last Modified By Organization Details Last Modified Time 03/31/2023 [id number] it is the anniversary of her husbands 14 years ago ........no si/hi. Continue Lorene [employer] , write out thoughts .....get a counselor [email or web address] Not available 04/01/2023 11:19:32 07/28/2023 [id number] Thank you for your visit to our [...] at home, please call us to discuss. [email or web address] Not available 07/28/2023 09:48:26 Homebound Status : Required Home Health Services: Durable Medical Equipment needed: Billing Guidelines CPT code 32388- Transitional Care Management services with moderate medical decision complexity (lbkv-yg-goua visit within 14 days of discharge). CPT code 68026- Transitional Care Management services with high medical decision complexity (cpqf-io-hfju visit within 7 days of discharge). [email or web address] Not available 07/28/2023 09:48:26 02/18/2024 [id number] she will try to do neb treatments at a friend's house . recheck BP at home , always normal there [email or web address] Not available 03/07/2024 15:31:32 Reason for Referral Progressive [employer] Maker Referral for An haylee pectoris 2 heart [...] Physician: [facility], Encounter Date: 07/28/2023 Progressive [employer] Referral for An haylee pectoris angina recurring [...] 2 view No observ ation record ed. [email or web address] Helen () [address] [place], [address], 03/25/2024 11:31:01 05/07/20 24 05/07/2024 XR, chest , 2 view No observ ation record ed. [email or web address] [facility] [address], [place], [address], 05/10/2024 10:05:44 05/07/20 24 05/07/2024 CT, angio gram, chest , w/ contr ast No observ ation record ed. [address], [place], [address], 05/10/2024 10:33:41 05/12/20 24 05/12/2024 XR, chest No observ ation record ed. [address], [place], [address], 05/21/2024 09:33:36 05/12/20 24 05/12/2024 CT, brain , w/ contr ast No observ ation record ed. [address], [place], [address], 05/21/2024 09:31:57 05/29/20 24 05/28/2024 XR, chest , 2 view No observ ation record ed. [address] [facility] [employer] [address], [place], [address], 06/01/2024 12:41:54 06/09/19 25 06/09/2024 XR, chest , 2 view No observ ation record ed. [address] [place], [address], 06/09/2024 14:40:53 02/15/20 25 02/14/2025 NM, lung scan No observ ation record ed. [address], [place], [address], 02/16/2025 12:18:57 02/15/20 25 02/14/2025 CT, abdom en + pelvi s, w/o contr ast No observ ation record ed. [address], [place], [address], 02/16/2025 12:19:26 02/16/20 25 02/15/2025 XR, chest , 1 view No observ ation record ed. [address], [place], [address], 02/16/2025 12:18:25 03/02/2003/01/2025 CT, head + orbit s, w/ contr ast No observ ation record ed. [address], [place], [address], 03/02/2025 10:19:59 03/02/2003/02/2025 CT, brain , w/o contr ast No observ ation record ed. [address], [place], [address], 03/02/2025 15:33:50 Result Notes None recorded. Problems Name Problem SNOMED Code Status Onset Date Resolution Date Notes Provider Name and Address Organization Details Recorded Time Cerebrovascula r accident 685054161 Active ROXANNE Howard, [facility] 12:29:02 Headache 01294866 Active ROXANNE Howard, [facility] 12:29:27 Blood in urine 06672891 Active ROXANNE Howard, [facility] 12:28:43 Depressive disorder 83114596 Active ROXANNE Howard, [facility] 12:29:12 Hypertensive disorder 44829766 Active ROXANNE Howard, [facility] 12:29:44 Systemic lupus erythematosus 17064370 Active ROXANNE Howard, [facility] 3 12:30:15 Flea bites Active 2022 ROXANNE Howard, [facility] 12:29:15 Nausea 605341853 Active 2022 Lisa Phillips MA null, [place] [facility] 3 12:29:57 Neuropathy 176426399 Active 2022 Lisa Phillips MA null, [place] [facility] 3 12:30:02 Chronic obstructive pulmonary disease 91943911 Active 2022 Lisa Phillips MA null, [place] [facility] 3 12:29:07 Spasm of back muscles 953659914 Active 2022 Lisa Phililps MA null, [place] [facility] 3 12:30:09 Angina pectoris 780016071 Active 2022 Lisa Phillips MA null, [place] [facility] 3 12:28:27 Gastroesophage al reflux disease 378174764 Active 2022 Lisa Phillips MA null, [place] [facility] 3 12:29:21 Anxiety 49412946 Active 2022 Lisa Phillips MA null, [place] [facility] [place] [facility] 3 12:28:37 Hemorrhoids 40687317 Active 2022 VALENTIN Chandler [address], [address] , [facility] 3 16:39:55 Insomnia 365976088 Active 2022 Lisa Phillips MA null, [place] [facility] [place] [facility] 3 12:29:48 Migraine 51510151 Active 2022 Lisa Phillips MA null, [place] [facility] [place] [facility] 3 12:29:53 Administration of influenza vaccine Active 2022 VALENTIN Chandler [address], [address] , [facility] 3 15:11:03 Pain of multiple joints 21940687 Active 2023 Mj Smith RN null, [place] [facility] [place] [facility] 4 09:33:49 Lower back injury 416705187 Active 2023 VALENTIN Chandler [address] [facility], [facility] [address], [place], [address] , [facility] [employer] 4 09:31:01 Notes:Some problems listed i n Documents: #[id number], #[id number] could not be added to this patient's chart. Please review these documents and add these problems to the patient's chart manually as needed. Problem Notes None recorded. Procedures Surgical History Date Name Laterality Status Provider Name and Address Organization Details Recorded Time 07/28/2023 Transition al[facility] nagement completed Bre Walker MA [employer] 07/28/2023 09:48:26 Imaging Results None recorded. Procedure Notes None recorded. Medical Equipment None Reported. Allergies Allergen ID Allergen Name Allergen Category Reaction Reaction Severity Criticality Documentation Date Start Date Code Code System Note Provider Name and Address Organization Details Recorded Time 67970 Substance with sulfonami de structure and antibacte rial mechanism of action (substanc e) medicatio n Not available Not available Not available 03/03/2023 73945 8003 SNOMED ROXANNE Mcgee [place] [facility] [employer] 3 14:51:36 22540 Product containin g penicilli n (product) medicatio n Not available Not available Not available 03/03/2023 66841 8001 SNOMED ROXANNE Mcgee [place] [facility] [employer] 3 14:51:46 21024 lorazepam medicatio n anxiety other Not available Not available low 05/09/20252014 6470 RxNorm React ion: Other Not Available lester - External Data Service - prod 5 12:47:33 Medications Name Sig Start Date Stop Date [...] active Not Available Not Available Not Avmoraima labda fluoxetin e 20 mg capsule 08/26 completed [...] 2023 active Not Available Not Available Not Sandie labda Dulera 200 mcg-5 mcg/actua tion HFA aerosol [...] active Not Available Not Available Not Avmoraima alcala Nurtec ODT 75 mg disintegr ating tablet TAKE 1 TABLET BY MOUTH DAILY NEEDED FOR 8 DAYS active Not Available Not Available No t Available Vitals Date Recorded Body height Body mass index (BMI) Body weight Body temperature Heart rate Oxygen saturation Systolic And Diastolic Provider Name and Address Organization Details Last Updated DateTime 4 165.1 cm 18.8 kg/m2 10942.9 4 g 97.6 [degF] 108 /min 96 % 150/66 mm[Hg] Bre Walker MA [facility] [employer] [facility] 4 09:54:33 Date Recorded Body height Body mass index (BMI) Body weight Body temperature Heart rate Oxygen saturation Systolic And Diastolic Provider Name and Address Organization Details Last Updated DateTime 3 165.1 cm 15.9 kg/m2 59887.6 8 g 97.7 [degF] 77 /min 97 % 166/90 mm[Hg] Bre Walker MA [facility] [employer] [facility] 3 16:52:03 Date Recorded Body height Body mass index (BMI) Body weight Body temperature Heart rate Oxygen saturation Respiratory rate Systolic And Diastolic Provider Name and Address Organization Details Last Updated DateTime 4 165.1 cm 17.5 kg/m2 33068.2 g 99 [degF] 90 /min 100 % 18 /min 176/90 mm[Hg] Linda Mueller RN [facility] [employer] [facility] 4 12:36:07 Date Recorded Body height Body mass index (BMI) Body weight Body temperature Heart rate Oxygen saturation Systolic And Diastolic Provider Name and Address Organization Details Last Updated DateTime 3 165.1 cm 17.2 kg/m2 60395.4 1 g 98.1 [degF] 77 /min 98 % 156/72 mm[Hg] Bre Walker MA [facility] [employer] [facility] 3 14:51:19 Date Recorded Body height Body mass index (BMI) Body weight Body temperature Heart rate Oxygen saturation Systolic And Diastolic Provider Name and Address Organization Details Last Updated DateTime 3 165.1 cm 16.8 kg/m2 08270.8 3 g 97.7 [degF] 92 /min 96 % 138/74 mm[Hg] Bre Walker MA [facility] [employer] 3 14:58:09 Social History None recorded. Functional Status None recorded. Mental Status None recorded. Family History Nothing Reported. Medical History No medical history recorded. Gynecological HistoryNo gynecological history recorded. Obstetrics History GPAL:G 0 P 0 0 0 0 Immunizations Vaccine Type Date Status Note Provider Nam e and Address Organization Details Recorded Time Influenza, high-dose, quadrivalent, PF 03/31/2023 completed ROXANNE Mcgee [place] - [facility] [employer] 03/31/2023 16:12:56 Past Encounters Encounter ID Performer Location Encounter Start Date Encounter Closed Date Diagnosis/Indication Diagnosis SNOMED-CT Code Diagnosis ICD10 Code Diagnosis IMO Codes Diagnosis Note [id number] Sanjuana Blevins MD [facility] Chelsey fajardo [address] [place] [address] [place] [address] 12/04/2022 16:38:21 12/06/2022 09:35:00 Flea bites 197903418 W57.XXXA Systemic l upus erythematosus 08219508 M32.9 Nausea 774825850 R11.0 Hypertensive disorder 38 461913 I10 Cerebrovas cular accident 280899975 I63.9 Neuropathy 407795720 G62 .9 Chronic ob structive pulmonary disease 06348938 J44.9 Spasm of back muscles 20 3516264 M62.830 Angina pectoris 13616554 0 I20.9 Gastroesop hageal reflux disease 061411531 K21.9 Anxiety 55452898 F41.9 [id number] Sanjuana Blevins MD [facility] Chelsey fajardo [address] [place] [address] [place] [address] 03/03/2023 14:39:48 03/03/2023 15:32:16 Chronic obstructive pulmonary disease 07665364 J44.9 Neuropathy 939493696 G62 .9 Spasm of back muscles 20 0351606 M62.830 Insomnia 191907723 G47.0 0 [id number] Sanjuana Blevins MD [facility] Gideon tana [address] [place] [address] [place] [address] 03/31/2023 14:43:25 03/31/2023 15:31:31 Nausea 399076339 R11.0 Anxiety 14299577 F41.9 Administra tion of influenza vaccine 20611554 Z23 Neuropathy 169409488 G62 .9 [id number] Sanjuana Blevins MD [address] [place] [address] 07/28/2023 09:46:56 07/28/2023 10:26:57 Transition of care 9843150915 105 Z75.8 Angina pectoris 42248518 0 I20.9 Neuropathy 885080756 G62 .9 Migraine 44955590 G43.90 9 Cerebrovas cular accident 683927136 I63.9 affecting left side Chronic ob structive pulmonary disease 69651881 J44.9 Insomnia 194272527 G47.0 0 Spasm of back muscles 20 0214601 M62.830 Anxiety 06277061 F41.9 Depressive disorder 3548 9007 F32.A Gastroesop hageal reflux disease 703477696 K21.9 Pain of mu ltiple joints 04390468 M25.50 [id number] Dimas Coe MD [address] [place] [address] 02/18/2024 12:11:55 02/18/2024 13:35:35 Chronic obstructive pulmonary disease 40437549 J44.9 Hypertensive disorder 38 342912 I10 Cerebrovas cular accident 812197400 I63.9 affecting left side Neuropathy 775527097 G62 .9 Angina pectoris 98580937 0 I20.9 Insomnia 269894525 G47.0 0 Nausea 046232514 R11.0 Gastroesop hageal reflux disease 028371903 K21.9 Lower back injury 435989 005 S39.92XA Anxiety 09284193 F41.9 Depressive disorder 3548 9007 F32.A Pain of mu ltiple joints 42971574 M25.50 Systemic l upus erythematosus 98301930 M32.9 Health Concerns Section Related Observation LastModified by Organization Detai ls LastModified Time None Recorded Concern Status LastModified by Organization Details LastModified Time None Recorded Advance Directives Directive None Recorded Payers Insurance Date Sequence Insurance Name Policy Number Policy Leonard Covered Member ID Leonard Member ID Guarantor Name 03/28/2025 1 [employer] [place] - [place] ON OR AFTER 2020 (MEDICARE REPLACEMENT/AD VANTAGE - HMO) Teagan Sigala [id number] Teagan Sigala 02/18/2024 1 [place] Teagan Sigala [id number] Teagan Sigala 02/18/2024 1 [place] WHEN MEDICARE OR MEDICARE REPLACEMENT PRIMARY) Teagan Sigala [id number] Teagan Sigala Notes Date Note Type Note Provider Name and Address Organization Details Recorded Time 03/03/2023 text/html ROS as noted in the HPI Prednisone taper helped her chest pain and breathing VALENTIN Chandler [address], [place], [address], [employer] 03/05/2023 16:41:35 03/31/2023 text/html ROS as noted in the HPI anxiety has been intense , no reason , VALENTIN Chandler [address], [place], [address], [employer] 04/01/2023 11:19:43 07/28/2023 text/html ROS as noted in the HPI just sits and cries in pain ..... has angina in to left arm again , left sided weakness to ED twice , given morphine and released . Dr. Gomes is her president and cmo. needs a sleeping pill ,has been on nortriptyline in the past . VALENTIN Chandler [address], [place], [address], [employer] 07/28/2023 10:38:13 02/18/2024 text/html ROS as noted in the HPI out of meds , electricity turned off , cannot breathe , cannot do nebulizer treatments ! back pain. is bad again VALENTIN Chandler [address], [place], [address], [employer] [facility] [employer] 03/07/2024 15:32:56 OBGyn Episode No OBEpisode recorded.
[2025-06-01 17:29] LABS: Troponin I < 0.012 ng/mL (0.000-0.034)
[2025-06-01 17:46] VITALS: PULSE 76; RESP 23; O2SAT 97
--- NOTE | 2025-06-01 17:46 | PC.NURSE ---
Pt refusing BP at this time. Keeps yelling out into the hallway for a nurse and help. This RN has redirected pt multiple times that the provider is very busy and will be in when she can. Pt continues to yell into hallway at this time and getting out of bed.
[2025-06-01 17:49] LABS: Anisocytosis 1+; Hypochromasia 1+; Schistocytes None Seen
[2025-06-01 18:18] LABS: Influenza A QL RT-PCR Negative (Negative); Influenza B QL RT-PCR Negative (Negative); RSV RNA, RT-PCR Negative (Negative); SARS-CoV-2 RNA PCR Negative (Negative)
== END 2025-06-01 18:21 | disposition left against medical advice (07) ==
PROVIDERS: Physician Assistant; Emergency Provider Physician Assistant
DX: R07.9 Chest pain, unspecified (principal); J44.9 Chronic obstructive pulmonary disease, unspecified; Z95.0 Presence of cardiac pacemaker; N18.30 Chronic kidney disease, stage 3 unspecified; K21.9 Gastro-esophageal reflux disease without esophagitis; I12.9 Hypertensive chronic kidney disease with stage 1 through stage 4 chronic kidney disease, or unspecified chronic kidney disease; I25.10 Atherosclerotic heart disease of native coronary artery without angina pectoris; M32.9 Systemic lupus erythematosus, unspecified; I25.2 Old myocardial infarction; Z85.53 Personal history of malignant neoplasm of renal pelvis; Z85.51 Personal history of malignant neoplasm of bladder; F17.210 Nicotine dependence, cigarettes, uncomplicated; Z20.822 Contact with and (suspected) exposure to COVID-19
CPT/HCPCS: 36415; 71045; 80053; 83690; 84484; 85025; 85610; 85730; 87637; 99284